=== PATIENT | female | born 1950 | race Caucasian/White ===

== ENCOUNTER 2016-03-26 14:30 | Outpatient (RCR) | payer MEDICARE, MEDICAID ==
[~2016-03-26 14:30] MED LIST: ADV1DS IH; ALBU2.5V4 NEB; ALBU2.5V52 INH; ALBU8.5H2 IH; ALPR0.5T PO; ALPR0.5T7 PO; AMIT100T2 PO; AMIT75TA2 PO; ASP81TEC PO; ASPI-999 PO; ATOR40TA PO; ATOR80TA2 PO; ATOR80TA76 PO; AZIT250T5 PO; BENZ100C23 PO; BENZ200C25 PO; BUDE0.256 IH; BUDE0.5A IH; BUDE0.5A7 IH; BUDE6HFA IH; CARV3.12 PO; CEFD300C PO; CEFD300C3 PO; CETI10TA17 PO; CHOL10007 PO; CIPR500T4 PO; CLOP75TA28 PO; CLPD75T PO; CRV6.25T PO; CYCL10TA45 PO; DIAZ5TAB3 PO; DIPH25CA79 PO; DIPH25TA31 PO; DLT180CCR PO; DULO60CA6 PO; ESTR1TAB24 PO; FENO145T2 PO; FENO145T20 PO; FISH400C PO; FLUO40CA PO; FLUT1DIS26 IH; FLUT1DIS26 INH; FLUT1DIS27 IH; FLUT9.9S NSEACH; GABA-488 PO; GLIM2TAB PO; GUAI120013 PO; HYDR-34 PO; HYDR-3816 PO; HYDR-3820 PO; HYDR-757 PO; HYDR118S10 PO; IPRA3AMP IH; IPRA3AMP19 IH; LEVO750T24 PO; LEVO750T9 PO; LISI-556 PO; LORA0.5T PO; METO-270 PO; METO-272 PO; METO25TA PO; METO50TA7 PO; MNTL10T PO; MONT10TA24 PO; MULT-1029 PO; MULT1TAB12 PO; MULT400C3 PO; NYST1000 PO; OMEG-109 PO; OMEG-160 PO; OMEG1200 PO; OMEG1CAP74 PO; OMEP40CA36 PO; OSLT75CRX PO; OXC5T PO; OXYC5TAB49 PO; PARO20TA5 PO; PARO20TA57 PO; PRD10T PO; PRD20T PO; PRED10TA PO; PREG50C PO; RT-ALBUINH IH; RT-ALBUINH INH; SCR1T1 PO; SERT100T8 PO; SERT50TA9 PO; SIMV40TA4 PO; SIMV80TA3 PO; SUCR1TAB PO; TIOT18CA IH; TIOT18CA2 IH; TIOT18CA2 INH; VNL75CCR PO
== END 2016-05-27 | disposition home or self-care (01) ==
LOC: CARD 14:30
PROVIDERS: ATTEND Nurse Practitioner Family
DX: I25.10 Atherosclerotic heart disease of native coronary artery without angina pectoris (principal); I65.23 Occlusion and stenosis of bilateral carotid arteries; E78.4 Other hyperlipidemia; R00.2 Palpitations; G47.33 Obstructive sleep apnea (adult) (pediatric)
CPT/HCPCS: 93270

== ENCOUNTER → 2016-05-31 | Outpatient (CLI) | payer MEDICARE, MEDICAID ==
[~2016-05-31] MED LIST changes: +ALBU18HF2 INH; +AMIT25TA9 PO; +ARIP5TAB20 PO; +ASPI-586 PO; +ATOR20TA66 PO; +BUDE0.253 IH; +BUPR1PAT TD; +METF500T4 PO; +SUCR1TAB36 PO
[2016-05-31 10:32] LABS: BASOPHILS % (AUTO) 0 % (0-10); EOSINOPHILS # (AUTO) 0.1 10^3/uL (0.0-0.3); EOSINOPHILS % (AUTO) 2 % (0-10); LYMPHOCYTES # (AUTO) 2.7 X 10^3 (1.0-4.0); LYMPHOCYTES % (AUTO) 44 % (12-44); MEAN CORPUSCULAR HEMOGLOBIN 28 PG (25-34); MEAN CORPUSCULAR HGB CONC 34 G/DL (32-36); MEAN CORPUSCULAR VOLUME 83 FL (80-99); MEAN PLATELET VOLUME 9.7 FL (7.4-10.4); MONOCYTES # (AUTO) 0.6 X 10^3 (0.0-1.0); MONOCYTES % (AUTO) 9 % (0-12); NEUTROPHILS # (AUTO) 2.7 X 10^3 (1.8-7.8); NEUTROPHILS % (AUTO) 44 % (42-75); PLATELET COUNT 213 10^3/uL (130-400); RED BLOOD COUNT 4.53 10^6/uL (4.35-5.85); RED CELL DISTRIBUTION WIDTH 14.1 % (10.0-14.5); WHITE BLOOD COUNT 6.1 10^3/uL (4.3-11.0)
[2016-05-31 10:52] LABS: ALANINE AMINOTRANSFERASE 24 U/L (0-55); ALBUMIN 4.2 G/DL (3.2-4.5); ANION GAP 10 MMOL/L (5-14); ASPARTATE AMINO TRANSFERASE 21 U/L (5-34); BILIRUBIN,TOTAL 0.5 MG/DL (0.1-1.0); BLOOD UREA NITROGEN 26 MG/DL (7-18); BUN/CREATININE RATIO 28; CALCIUM 9.7 MG/DL (8.5-10.1); CARBON DIOXIDE 24 MMOL/L (21-32); CHLORIDE 107 MMOL/L (98-107); CHOLESTEROL 245 MG/DL (< 200); CREATININE SERUM 0.93 MG/DL (0.60-1.30); DIRECT LDL 140 MG/DL (1-129); ERYTHROCYTE SEDIMENTATION RATE 9 MM/HR (0-30); GFR ESTIMATED > 60; GLUCOSE 131 MG/DL (70-105); POTASSIUM 3.9 MMOL/L (3.6-5.0); SODIUM 141 MMOL/L (135-145); TOTAL PROTEIN 6.3 G/DL (6.4-8.2); TRIGLYCERIDES 451 MG/DL (<150); VLDL CHOLESTEROL 90 MG/DL (5-40)
[2016-05-31 11:12] LABS: THYROID STIMULATING HORMONE 2.56 UIU/ML (0.35-4.94)
== END ==
LOC: LAB 10:17
PROVIDERS: ATTEND Nurse Practitioner Family
DX: I25.10 Atherosclerotic heart disease of native coronary artery without angina pectoris (principal); E78.4 Other hyperlipidemia; I65.23 Occlusion and stenosis of bilateral carotid arteries; J43.8 Other emphysema; E11.9 Type 2 diabetes mellitus without complications; R26.89 Other abnormalities of gait and mobility; G47.33 Obstructive sleep apnea (adult) (pediatric); E66.09 Other obesity due to excess calories
CPT/HCPCS: 36415; 80053; 80061; 83735; 84443; 85025; 85652

== ENCOUNTER 2016-07-17 12:35 | Outpatient (CLI) | payer MEDICARE, MEDICAID ==
[~2016-07-17] VITALS: Ht 170.2 cm; Wt 100.2 kg
[~2016-07-17 12:35] MED LIST changes: -ALBU18HF2 INH; -AMIT25TA9 PO; -ARIP5TAB20 PO; -ASPI-586 PO; -ATOR20TA66 PO; -BUDE0.253 IH; -BUPR1PAT TD; -METF500T4 PO; -SUCR1TAB36 PO
[2016-07-17 12:43] VITALS: BP 156/73
[2016-07-17] MEDS ORDERED: METF500T4 PO (13:18)
[2016-07-17] MEDS ORDERED: AMIT25TA9 PO (13:18)
[2016-07-17] MEDS ORDERED: ASPI-586 PO (13:18)
[2016-07-17] MEDS ORDERED: ATOR20TA66 PO (13:18)
[2016-07-17] MEDS ORDERED: RT-ALBUINH IH (13:18)
[2016-07-17] MEDS ORDERED: BUDE0.253 IH (13:18)
== END 2016-07-17 13:00 | disposition home or self-care (01) ==
LOC: PREOP 12:35
PROVIDERS: ATTEND Orthopaedic Surgery
DX: Z01.818 Encounter for other preprocedural examination (principal); Z11.2 Encounter for screening for other bacterial diseases; M65.4 Radial styloid tenosynovitis [de Quervain]
CPT/HCPCS: 87081

== ENCOUNTER 2016-07-22 20:25 | Emergency (ER) | payer MEDICARE, MEDICAID ==
[~2016-07-22] VITALS: Ht 170.2 cm; Wt 102.1 kg
[~2016-07-22 20:25] MED LIST changes: +AMIT25TA9 PO; +ASPI-586 PO; +ATOR20TA66 PO; +BUDE0.253 IH; +METF500T4 PO
--- NOTE | 2016-07-22 21:20 | ED Abdominal Pain ---
General Stated Complaint: STOMACH PAIN/VOMITING Source of Information: Patient, RN Notes Reviewed Exam Limitations: No Limitations History of Present Illness Time Seen By Provider: 21:20 Initial Comments As above and below. Timing/Duration: 1 Week, Getting Worse, Intermittent Severity/Quality: Moderate (7/10), Burning, Cramping Location: Epigastric Radiation: No Radiation Activities at Onset: None Associated Symptoms: Other (nauseated, but hasn't been able to vomiting) Allergies and Home Medications Allergies Coded Allergies: dornase lloyd (Verified Allergy, Unknown, RAPID HEART BEAT, 05/25/15) Penicillins (Verified Adverse Reaction, Mild, NAUSEA, 05/25/15) codeine (Verified Adverse Reaction, Mild, NAUSEA, PT TAKES HYDROCODONE AT HOME, 05/25/15) Home Medications Albuterol Sulfate 1 Puff Puff, 2 PUFF IH Q4H PRN for SHORTNESS OF BREATH, ( Reported) 1 PUFF = 90 MCG Albuterol Sulfate 18 Gm Hfa.aer.ad, 1 INH INH UD, #18 (Reported) Amitriptyline HCl 25 Mg Tablet, 25 MG PO HS, (Reported) Aripiprazole 5 Mg Tablet, 1 TAB PO UD, #30 (Reported) Aspirin 81 Mg Tablet.dr, 81 MG PO DAILY, (Reported) Atorvastatin Calcium 20 Mg Tablet, 20 MG PO HS, (Reported) Budesonide 0.25 Mg/2 Ml Ampul.neb, 0.25 MG IH BID PRN for SHORTNESS OF BREATH, ( Reported) Buprenorphine 1 Each Patch.tdwk, 1 PATCH TD UD, #4 (Reported) Cetirizine HCl 10 Mg Tablet, 10 MG PO DAILY, (Reported) Fenofibrate Nanocrystallized 145 Mg Tablet, 145 MG PO DAILY, (Reported) Fluticasone Propionate 9.9 Ml [place].susp, 1 SPRAY NSEACH DAILY, (Reported) Fluticasone/Salmeterol 1 Each Blst.w.dev, 1 PUFF IH BID, (Reported) Gabapentin 300 Mg Capsule, 600 MG PO 1200,2100, (Reported) TAKES 2 (300MG) CAPSULES Gabapentin 300 Mg Capsule, 300 MG PO DAILY, (Reported) Glimepiride 2 Mg Tablet, 2 MG PO DAILY, (Reported) Hydrocodone/Acetaminophen 1 Each Tablet, 1 TAB PO Q4H PRN for PAIN, (Reported) Ipratropium/Albuterol Sulfate 3 Ml Ampul.neb, 3 ML IH Q4H PRN for SHORTNESS OF BREATH, (Reported) Lisinopril 5 Mg Tablet, 1 TAB PO UD, #30 (Reported) Metformin HCl 500 Mg Tablet, 1,000 MG PO DAILY, (Reported) take 2 (500mg) tabs Metoprolol Succinate 25 Mg Tab.er.24h, 25 MG PO DAILY, (Reported) Montelukast Sodium 10 Mg Tablet, 10 MG PO HS, (Reported) Multivit, Calc, Min/Folic Acid 400 Mcg Capsule, 1 CAP PO HS, (Reported) Halbur-3/Dha/Epa/Fish Oil 1 Each Capsule, 2,000 MG PO BID, (Reported) TAKES 2 (1000MG) CAPSULES Omeprazole 40 Mg Capsule.dr, 40 MG PO DAILY, (Reported) Sertraline HCl 100 Mg Tablet, 100 MG PO HS, (Reported) TAKES ALONG WITH 50MG TABLET Sertraline HCl 50 Mg Tablet, 50 MG PO HS, (Reported) TAKES ALONG WITH 100MG TABLET Sucralfate 1 Gm Tablet, 1 GM PO ACHS, #120 Ref 0 Prescribed by: TRISTAN CAMARILLO on 07/23/16 0012 Tiotropium [place] 1 Inh Aerp, 1 CAP IH DAILY, (Reported) Review of Systems Constitutional: see HPI Gastrointestinal: See HPI, Abdominal Pain, Nausea All Other Systems Reviewed Negative Unless Noted: Yes (Negative excepted noted.) Past Vreblyg-Jthnly-Dgfftv Hx Patient Social History Type Used: Cigarettes Former Smoker/When Quit: May 22, 2001 Recent Foreign Travel: No Contact w/Someone Who Travel: No Recent Hopitalizations: No Immunizations Up To Date Tetanus Booster (TDap): Unknown PED Vaccines UTD: Yes Date of Pneumonia Vaccine: Dec 22, 2014 Date of Influenza Vaccine: Dec 21, 2015 Seasonal Allergies Seasonal Allergies: Yes Surgeries HX Surgeries: Yes (C-SPINE, RIGHT RCR, TRACH, eyelid lift) Surgeries: Appendectomy, Cardiac, Coronary Stent, Gallbladder, 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, Orthopedic, Tonsillectomy, Tracheostomy Respiratory Hx Respiratory Disorders: Yes (COPD, PLEURISY, WEARS OXYGEN, BRONCHOSPASM, VOCAL CORD SPASM) Respiratory Disorders: Asthma, Pneumonia, Chronic Bronchitis, COPD, Emphysema Cardiovascular Hx Cardiac Disorders: Yes (Cardiac stents x2) Cardiac Disorders: Coronary Artery Disease, Hypertension Neurological Hx Neurological Disorders: No 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 System Hx 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 Disorders: No 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, 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 Genitourinary Hx Genitourinary Disorders: Yes Genitourinary Disorders: Bladder Infection, Kidney Stones Gastrointestinal Hx Gastrointestinal Disorders: Yes (SPASMODIC COLON) Gastrointestinal Disorders: Gastroesophageal Reflux, Ulcer, Irritable Bowel Musculoskeletal Hx Musculoskeletal Disorders: Yes (NECK PAIN, CERVICAL STENOSIS, ) Musculoskeletal Disorders: Arthritis, Fibromyalgia, Rheumatoid Arthritis, Chronic Back Pain Endocrine Hx Endocrine Disorders: Yes Endocrine Disorders: Diabetes, Non-Insulin dep HEENT HX ENT Disorders: Yes (GLASSES, DENTURES, LARYNGOSPASM/VOCAL CORD SPASM) Loss of Vision: Denies Hearing Impairment: Denies Cancer Hx Cancer: No Psychosocial Hx Psychiatric Problems: Yes Behavioral Health Disorders: Anxiety, Depression Integumentary HX Skin/Integumentary Disorder: No Blood Transfusions Hx Blood Disorders: No Adverse Reaction to a Blood Tr: No Family Medical History Significant Family History: No Pertinent Family Hx Family Medial History: Cancer 03 MOTHER (lung cancer 1987) Cardiovascular disease G8 BROTHER G8 SISTER Diabetes mellitus G8 SISTER Family history: Asthma 03 MOTHER Family history: Cardiovascular disease 03 FATHER Family history: Hypertension 03 MOTHER Family history: Osteoporosis 03 MOTHER History of - respiratory disease Hypertension G8 BROTHER G8 SISTER Respiratory disorder G8 BROTHER (LUNG CA) Stroke 03 MOTHER (1969,s stroke paraylsis lower extremies w/c ) Physical Exam Vital Signs VS - Last 72 Hours, by Label 07/22/16 07/22/16 21:27 21:43 Temp 99.0 99.0 Pulse 71 Resp 20 B/P (MAP) 145/105 Pulse Ox 97 O2 Delivery Nasal Cannula O2 Flow Rate 2.00 Capillary Refill : General Appearance: WD/WN, moderate distress, obese HEENT: normal ENT inspection Neck: normal inspection Respiratory: no respiratory distress Cardiovascular: regular rate, rhythm Gastrointestinal: soft, guarding (epigastric), No rebound, tenderness ( epigastric) Rectal: deferred Neurologic/Psychiatric: no motor/sensory deficits, alert, oriented x 3, other ( appears uncomfortable) Skin: warm/dry Progress/Results/Core Measures Results/Orders Lab Results Laboratory Tests Test 07/22/16 21:22 07/22/16 21:40 Range/Units Urine Color YELLOW Urine Clarity CLEAR Urine pH 7 5-9 Urine Specific [place] 1.010 L 1.016-1.022 Urine Protein NEGATIVE NEGATIVE Urine Glucose (UA) NEGATIVE NEGATIVE Urine Ketones NEGATIVE NEGATIVE Urine Nitrite NEGATIVE NEGATIVE Urine Bilirubin NEGATIVE NEGATIVE Urine Urobilinogen NORMAL NORMAL MG/DL Urine Leukocyte Esterase 2+ H NEGATIVE Urine RBC (Auto) NEGATIVE NEGATIVE Urine RBC NONE /HPF Urine WBC 0-2 /HPF Urine Squamous Epithelial Cells NONE /HPF Urine Crystals NONE /LPF Urine Bacteria TRACE /HPF Urine Casts NONE /LPF Urine Mucus NEGATIVE /LPF Urine Culture Indicated NO White Blood Count 12.9 H 4.3-11.0 10^3/uL Red Blood Count 4.66 4.35-5.85 10^6/uL Hemoglobin 13.2 11.5-16.0 G/DL Hematocrit 39 35-52 % Mean Corpuscular Volume 83 80-99 FL Mean Corpuscular Hemoglobin 28 25-34 PG Mean Corpuscular Hemoglobin Concent 34 32-36 G/DL Red Cell Distribution Width 14.0 10.0-14.5 % Platelet Count 237 130-400 10^3/uL Mean Platelet Volume 10.5 H 7.4-10.4 FL Neutrophils (%) (Auto) 75 42-75 % Lymphocytes (%) (Auto) 16 12-44 % Monocytes (%) (Auto) 8 0-12 % Eosinophils (%) (Auto) 1 0-10 % Basophils (%) (Auto) 0 0-10 % Neutrophils # (Auto) 9.6 H 1.8-7.8 X 10^3 Lymphocytes # (Auto) 2.1 1.0-4.0 X 10^3 Monocytes # (Auto) 1.0 0.0-1.0 X 10^3 Eosinophils # (Auto) 0.1 0.0-0.3 10^3/uL Basophils # (Auto) 0.0 0.0-0.1 10^3/uL Sodium Level 143 135-145 MMOL/L Potassium Level 3.9 3.6-5.0 MMOL/L Chloride Level 107 98-107 MMOL/L Carbon Dioxide Level 22 21-32 MMOL/L Anion Gap 14 5-14 MMOL/L Blood Urea Nitrogen 11 7-18 MG/DL Creatinine 0.96 0.60-1.30 MG/DL Estimat Glomerular Filtration Rate 59 BUN/Creatinine Ratio 11 Glucose Level 154 H 70-105 MG/DL Calcium Level 9.8 8.5-10.1 MG/DL Total Bilirubin 0.6 0.1-1.0 MG/DL Aspartate Amino Transf (AST/SGOT) 34 5-34 U/L Alanine Aminotransferase (ALT/SGPT) 56 H 0-55 U/L Alkaline Phosphatase 57 40-136 U/L Total Protein 6.8 6.4-8.2 G/DL Albumin 4.6 H 3.2-4.5 G/DL Lipase 21 8-78 U/L My Orders Orders - TRISTAN CAMARILLO DO Ondansetron Injection (Zofran Injectio (07/22/16 21:45) Famotidine Injection (Pepcid Injection) (07/22/16 21:45) Fentanyl Injection (Sublimaze Injection (07/22/16 21:45) Saline Lock/Iv-Start (07/22/16 21:39) Cbc With Automated Diff (07/22/16 21:39) Lipase (07/22/16 21:39) Ua Culture If Indicated (07/22/16 21:39) Comprehensive Metabolic Panel (07/22/16 22:01) Ct Abdomen/Pelvis W (07/22/16 22:33) Iohexol Injection (Omnipaque 350 Mg/Ml 1 (07/22/16 22:45) Sodium Chloride Flush (Catheter Flush Sy (07/22/16 22:45) Sucralfate Tablet (Carafate Tablet) (07/23/16 00:15) Medications Given in ED Current Medications Medications Dose Ordered Sig/Dominique Route Start Time Stop Time Status Last Admin Dose Admin Famotidine 20 mg ONCE ONCE IVP 07/22/16 21:45 07/22/16 21:46 DC 07/22/16 21:43 20 MG Fentanyl Citrate 100 mcg ONCE ONCE IVP 07/22/16 21:45 07/22/16 21:46 DC 07/22/16 21:43 100 MCG Iohexol 100 ml ONCE ONCE IV 07/22/16 22:45 07/22/16 22:46 DC 07/22/16 23:14 100 ML Ondansetron HCl 4 mg ONCE ONCE IVP 07/22/16 21:45 07/22/16 21:46 DC 07/22/16 21:43 4 MG Sodium Chloride 10 ml NEEDED PRN IV 07/22/16 22:45 07/22/16 23:14 10 ML Sucralfate 1 gm ONCE ONCE PO 07/23/16 00:15 07/23/16 00:16 DC 07/23/16 00:31 1 GM Vital Signs/I&O Vital Sign - Last 12Hours 07/22/16 07/22/16 21:27 21:43 Temp 99.0 99.0 Pulse 71 Resp 20 B/P (MAP) 145/105 Pulse Ox 97 O2 Delivery Nasal Cannula O2 Flow Rate 2.00 Progress Note : Progress Note Much improved @ time of discharge. Diagnostic Imaging Diagonstic Imaging: CT Plain Films/CT/US/NM/MRI: abdomen, pelvis Reviewed: Reviewed [place] Study (nothing acute) Departure Impression Impression: Primary Impression: Epigastric abdominal pain Additional Impression: PUD vs Gastritis Disposition: HOME, SELF-CARE Condition: Improved Departure-Patient Inst. Decision time for Depature: 00:10 Referrals: [facility] (PCP) Primary Care Physician COREY JUAREZ (Family) Primary Care Physician Patient Instructions: Peptic Ulcers (DC), Gastritis (DC) Add. Discharge Instructions: RECOMMEND DOUBLING UP ON YOUR OMEPERZOLE FOR THE NEXT 2 WEEKS. WILL NEED TO FOLLOW UP WITH YOUR PCP IF SYMPTOMS WORSEN, OR CONTINUE. Scripts Sucralfate (Carafate) 1 Gm Tablet 1 GM PO ACHS, #120 TAB 0 Refills Prov: TRISTAN CAMARILLO DO 07/23/16 TRISTAN CAMARILLO DO July 22, 2016 21:20
[2016-07-22] MEDS ORDERED: BUPR1PAT TD (21:27)
[2016-07-22] MEDS ORDERED: ALBU18HF2 INH (21:27)
[2016-07-22] MEDS ORDERED: LISI-556 PO (21:27)
[2016-07-22] MEDS ORDERED: ARIP5TAB20 PO (21:27)
[2016-07-22 21:45] LABS: BILIRUBIN,URINE NEGATIVE (NEGATIVE); KETONES,URINE NEGATIVE (NEGATIVE); LEUKOCYTE ESTERASE ,URINE 2+ (NEGATIVE); NITRITE,URINE NEGATIVE (NEGATIVE); PH,URINE 7 (5-9); PROTEIN,URINE NEGATIVE (NEGATIVE); UROBILINOGEN,URINE NORMAL (NORMAL)
[2016-07-22] MEDS ORDERED: fentaNYL INJECTION 100 MCG/2 ML AMP IVP ONE (21:45)
[2016-07-22] MEDS ORDERED: ONDANSETRON 4 MG/2 ML (SDV) Z0FRAN IVP ONE (21:45)
[2016-07-22] MEDS ORDERED: FAMOTIDINE 20MG/2ML IV (PEPCID) IVP ONE (21:45)
[2016-07-22 21:56] LABS: WBC,URINE 0-2 /HPF
[2016-07-22 21:57] LABS: BASOPHILS % (AUTO) 0 % (0-10); EOSINOPHILS # (AUTO) 0.1 10^3/uL (0.0-0.3); EOSINOPHILS % (AUTO) 1 % (0-10); LYMPHOCYTES # (AUTO) 2.1 X 10^3 (1.0-4.0); LYMPHOCYTES % (AUTO) 16 % (12-44); MEAN CORPUSCULAR HEMOGLOBIN 28 PG (25-34); MEAN CORPUSCULAR HGB CONC 34 G/DL (32-36); MEAN CORPUSCULAR VOLUME 83 FL (80-99); MEAN PLATELET VOLUME 10.5 FL (7.4-10.4); MONOCYTES % (AUTO) 8 % (0-12); NEUTROPHILS # (AUTO) 9.6 X 10^3 (1.8-7.8); NEUTROPHILS % (AUTO) 75 % (42-75); PLATELET COUNT 237 10^3/uL (130-400); RED BLOOD COUNT 4.66 10^6/uL (4.35-5.85); WHITE BLOOD COUNT 12.9 10^3/uL (4.3-11.0)
[2016-07-22 22:29] LABS: ALBUMIN 4.6 G/DL (3.2-4.5); BILIRUBIN,TOTAL 0.6 MG/DL (0.1-1.0); CALCIUM 9.8 MG/DL (8.5-10.1); CREATININE SERUM 0.96 MG/DL (0.60-1.30); POTASSIUM 3.9 MMOL/L (3.6-5.0); TOTAL PROTEIN 6.8 G/DL (6.4-8.2)
[2016-07-22] MEDS ORDERED: CATHETER FLUSH 10 ML SYR IV PRN (22:45)
[2016-07-22] MEDS ORDERED: IOHEXOL 350 MG/ML 100 ML (OMNIPAQUE 350) VIAL IV ONE (22:45)
[2016-07-23] MEDS ORDERED: SUCR1TAB36 PO (00:12)
[2016-07-23] MEDS ORDERED: SUCRALFATE 1 GM (CARAFATE) TAB PO ONE (00:15)
[2016-07-23 00:35] VITALS: BP 165/87
--- NOTE | 2016-07-23 08:09 | Diagnostic Imaging Report ---
PROCEDURE: CT abdomen and pelvis with contrast. TECHNIQUE: Multiple contiguous axial images were obtained through the abdomen and pelvis after administration of intravenous contrast. INDICATION: Abdominal pain two weeks' duration, worsening in severity. COMPARISON: Limited to overlapped images of the upper abdomen obtained during chest CT 07/05/2015. The appendix is surgically absent. There is no abdominal wall hernia or fluid collection. In particular, the periumbilical region appeared normal. There are clips in the gallbladder fossa with hepatic cysts simple and benign. Spleen and adrenals appeared normal. There is an ovoid region of hypodensity in the uncinate process of the pancreas measuring roughly 1.1 x 0.5 cm seen best on image 31 of 94 on the delayed acquisitions. It is unclear if this is solid or cystic. No pancreatic atrophy or ductal dilatation. The bile ducts nondilated. Stomach normal aside from probable tiny hiatal hernia. No abdominal mesenteric or retroperitoneal adenopathy. There is a right renal cortical cyst showing no complexity. The kidneys unobstructed and otherwise normal. There is no pelvic ascites, abscess, hematoma, or fluid collection. There is no bowel, biliary, or urinary tract obstruction. There is no diverticulitis. No perienteric or pericolonic edema. There is no focal inflammatory process. The osseous structures are nonacute. Aortoiliac atherosclerotic vascular calcifications are nonaneurysmal without evidence of vascular obstruction. Probable bone island in the supra-acetabular right innominate bone noted. There are chronic degenerative changes. The osseous structures revealed no acute finding. IMPRESSION: 1. No inflammatory process, obstructive features, or acute findings. In particular, no periumbilical abnormality or pain reportedly greatest. 2. Indeterminate hypodensity in the uncinate process of the pancreas. This may be solid or cystic. Consider nonemergent outpatient contrast-assisted abdominal MRI and MRCP as its further workup. 3. Mild hepatic steatosis and a benign hepatic cyst as well as benign right renal cortical cyst. 4. Nonaneurysmal atherosclerosis. 5. Postoperative changes as described. Dictated by: Dictated on workstation # [id number]
[2016-07-24] MEDS ORDERED: HYDR-3820 PO (10:13)
== END 2016-07-23 00:33 | disposition home or self-care (01) ==
LOC: EDUNIT# 20:25 → ER 20:27
DX: R10.13 Epigastric pain (principal); J44.9 Chronic obstructive pulmonary disease, unspecified; I25.10 Atherosclerotic heart disease of native coronary artery without angina pectoris; I10 Essential (primary) hypertension; E11.9 Type 2 diabetes mellitus without complications; Z79.82 Long term (current) use of aspirin; Z79.84 Long term (current) use of oral hypoglycemic drugs; Z79.899 Other long term (current) drug therapy; Z95.5 Presence of coronary angioplasty implant and graft
CPT/HCPCS: 36415; 74177; 80053; 81000; 83690; 85025; 96374; 96375

== ENCOUNTER 2016-07-24 07:00 | Day surgery (SDC) | payer MEDICARE, MEDICAID ==
--- NOTE | 2016-07-17 13:56 | HISTORY AND PHYSICAL ---
DATE OF SERVICE: 07/24/2016 REASON FOR ADMISSION: This is for outpatient surgery for left De Quervain's release. HISTORY OF PRESENT ILLNESS: The patient is a 66-year-old female with progressively worsening left wrist pain. She reports she has been treated with injections in the past which initially provided good relief, but she reports progressive symptoms and failure to improve with injections. She denies any recent injuries. She is right-hand dominant. She reports that repetitive activities lead to worsening symptoms. She denies paresthesias. Due to functional impairment, the patient has elected to proceed with surgical intervention. REVIEW OF SYSTEMS: No chest pain, no shortness of breath, no dysuria. PAST MEDICAL HISTORY: Asthma, colon polyp, COPD, coronary artery disease, depression, diabetes type 2, hypertension, neck pain, cervical stenosis, fibromyalgia, peripheral neuropathy, chronic respiratory failure and back pain. PAST SURGICAL HISTORY: Appendectomy, cervical spine, cholecystectomy, hysterectomy, rotator cuff repair, tracheotomy, cardiac catheterization. FAMILY HISTORY: Noncontributory. PRIMARY CARE PROVIDER: [facility]. MEDICATIONS: Centrum, fish oil, Lipitor, Spiriva, Flonase, albuterol, Singulair, Zyrtec, Advair, ProAir, metoprolol, adult aspirin, omeprazole, Zoloft, lorazepam, gabapentin, glimepiride, metformin, lisinopril, Tricor, amitriptyline, hydrocodone, Butrans. ALLERGIES: CODEINE, DORNASE, HYMENOPTERA, PRAZOSIN, FENTANYL, PENICILLIN. SOCIAL HISTORY: The patient is a former smoker, denies alcohol use. PHYSICAL EXAMINATION: GENERAL: The patient is well-developed, well-nourished, in no acute distress. HEENT: Normocephalic, atraumatic. Pupils equal, round and reactive to light. Oropharynx is clear. NECK: Supple. No lymphadenopathy. LUNGS: Clear to auscultation bilaterally. HEART: Regular rate and rhythm. ABDOMEN: Soft, nontender, nondistended. EXTREMITIES: The left wrist demonstrates tenderness over her first dorsal compartment. She has a markedly positive Matty maneuver. She has pain with resistant thumb extension as well as abduction. IMPRESSION: Left De Quervain's tenosynovitis, unresponsive to conservative measures. PLAN: Left De Quervain's release. The risks, benefits, alternatives, options, ramifications and recovery have been discussed at length with the patient. She understands and wishes to proceed. Job ID: [id number] DocumentID: [id number] Dictated Date: 07/16/2016 09:43:49 Sales Technician Date: 07/16/2016 10:03:18 Dictated By: LEONELA ALEMAN MD
[~2016-07-24] VITALS: Ht 170.2 cm; Wt 102.1 kg
[2016-07-24 07:00] VITALS: BP 141/74
[~2016-07-24 07:00] MED LIST changes: +ALBU18HF2 INH; +ARIP5TAB20 PO; +BUPR1PAT TD; +SUCR1TAB36 PO
[2016-07-24] MEDS ORDERED: CLINDAMYCIN 600 MG/50 ML IVPB 50 ML IV ONE ×2 (07:19→08:00)
[2016-07-24] MEDS ORDERED: FAMOTIDINE 20MG/2ML IV (PEPCID) ONE (07:20)
[2016-07-24] MEDS ORDERED: ONDANSETRON 4 MG/2 ML (SDV) Z0FRAN ONE ×2 (07:20→08:47)
--- NOTE | 2016-07-24 07:20 | Progress Note-Pre Operative ---
Pre-Operative Progress Note H&P Reviewed The H&P was reviewed, patient examined and no changes noted. Date H&P Reviewed: July 24, 2016 Time H&P Reviewed: 07:19 Pre-Operative Diagnosis: left wrist DeQuervain's tenosynovitis LEONELA ALEMAN MD July 24, 2016 07:20
--- NOTE | 2016-07-24 07:21 | Progress Note-Post Operative ---
Post-Operative Progess Note Surgeon (s)/User Support Analyst (s) Surgeon LEONELA ALEMAN MD User Support Analyst: Toy Rodrigues Pre-Operative Diagnosis left wrist DeQuervain's tenosynovitis Post-Operative Diagnosis left wrist Dequervain's tenosynovitis Post-Op Procedure Note Date of Procedure: July 24, 2016 Name of Procedure Performed: left wrist Dequervain's release Description of the Procedure: see operative note Findings of the Procedure intact but macerated tendons Anesthesia Type MAC plus local Estimated blood loss (mL): minimal Packing: none Specimen(s) collected/removed none LEONELA ALEMAN MD July 24, 2016 07:21
[2016-07-24] MEDS ORDERED: CLINDAMYCIN 600 MG/NS 50 ML IVPB IV ONE ×2 (07:30)
[2016-07-24] MEDS ORDERED: HYDROcodone/APAP 10 MG/325 MG (LORTAB) TAB PO PRN (07:30)
[2016-07-24] MEDS ORDERED: RT-ALBUTEROL SULF 2.5 MG/3 ML PRE-MIX VIAL IH SCH (07:45)
[2016-07-24] MEDS ORDERED: LACTATED RINGERS 1,000 ML IV PRN ×2 (07:50→08:00)
[2016-07-24] MEDS ORDERED: BUPIVACAINE 0.25% 30 ML (SENSORCAINE) VIAL ONE (07:50)
[2016-07-24] MEDS ORDERED: FAMOTIDINE 20MG/2ML IV (PEPCID) IV ONE (08:00)
[2016-07-24] MEDS ORDERED: ONDANSETRON 4 MG/2 ML (SDV) Z0FRAN IV ONE (08:00)
[2016-07-24] MEDS ORDERED: MIDAZOLAM 2 MG/2 ML (VERSED) VIAL ONE (08:05)
[2016-07-24] MEDS ORDERED: KETAMINE HCL 100 MG/ML 5 ML VIAL ONE (08:05)
[2016-07-24] MEDS ORDERED: PROPOFOL INJECTION 50 ML IV ONE ×2 (08:05→08:47)
[2016-07-24] MEDS ORDERED: LACTATED RINGERS 1,000 ML IV ONE (08:05)
[2016-07-24] MEDS ORDERED: LIDOCAINE 1% INJ 20 ML (XYLOCAINE) VIAL ONE (08:15)
[2016-07-24] MEDS ORDERED: LABETALOL HCL 20 MG/4 ML VIAL ONE (08:46)
[2016-07-24] MEDS: morphine INJ 10 MG/ML 1ML (SYR OR VIAL) IVP PRN ×2 (09:00→09:10)
[2016-07-24] MEDS ORDERED: ONDANSETRON 4 MG/2 ML (SDV) Z0FRAN IVP PRN (09:00)
[2016-07-24 09:40] VITALS: BP 133/67
[2016-07-24 10:10] VITALS: BP 123/58
[2016-07-24] MEDS ORDERED: HYDR-3820 PO (10:13)
[2016-07-24 10:35] VITALS: BP 128/62
[2016-07-24 10:43] VITALS: BP 128/62
--- NOTE | 2016-07-24 12:39 | OPERATIVE REPORT ---
DATE OF SERVICE: 07/24/2016 PREOPERATIVE DIAGNOSIS: Left De Quervain's tenosynovitis. POSTOPERATIVE DIAGNOSIS: Left De Quervain's tenosynovitis. PROCEDURE: Left wrist De Quervain's release. SURGEON: Tyler Aleman MD INFORMATION TECHNOLOGY AUDIT MANAGER: SHIRLEY Tyson, who assisted throughout the procedure and closed the incision. ANESTHESIA: Monitored anesthesia care plus local by Nan Suarez CRNA. TOURNIQUET TIME: 10 minutes at 250 mmHg. ESTIMATED BLOOD LOSS: Minimal. DRAINS: None. COMPLICATIONS: None. POSTOPERATIVE PLAN: Early range of motion. The patient was transported to the recovery room awake and in stable condition. STATEMENT OF MEDICAL NECESSITY: The patient is a 66-year-old [id number] female with complaints of left wrist pain and swelling. She is markedly tender over her first dorsal compartment. She had swelling noted. She had remarkably positive Finklestein's maneuver. She had undergone treatment with injections, splinting, activity modifications and rest without relief and due to continued functional impairment, the patient elected to proceed with surgical intervention. PROCEDURE: After risks and benefits of the procedure were discussed and questions were answered, an informed consent was signed and placed on the chart. The operative site was confirmed in the preoperative holding area and initialed by the surgeon. The patient was then transported to the operating room and after adequate levels of monitored anesthesia care were obtained under sterile conditions, the incision site was infiltrated with a combination of plain lidocaine and plain Marcaine. The left upper extremity was then prepped and draped in the usual sterile fashion with the arm elevated. The tourniquet was inflated to 250 mmHg. A oblique incision was made in the skinfold approximately 1 fingerbreadth proximal to the radial styloid. The underlying soft tissues were bluntly dissected. Superficial branch of the radial nerve was retracted dorsally. The first dorsal compartment was then incised longitudinally. The tendons were freed throughout the first dorsal compartment; they were macerated and there were longitudinal splits noted. They were intact, but markedly inflamed with longitudinal splitting. The tourniquet was deflated for a total tourniquet time of 10 minutes. Pressure was used for hemostasis. The wound was copiously irrigated and closed with 4-0 nylon in simple interrupted fashion. A soft dressing was applied and the patient was transported to the recovery room awake and in stable condition. Job ID: [id number] DocumentID: [id number] Dictated Date: 07/24/2016 09:00:09 Casing Tier Date: 07/24/2016 12:39:03 Dictated By: TYLER ALEMAN MD
== END 2016-07-24 10:43 | disposition home or self-care (01) ==
LOC: SDC 07:00
PROVIDERS: ATTEND Orthopaedic Surgery
DX: M65.4 Radial styloid tenosynovitis [de Quervain] (principal); J44.9 Chronic obstructive pulmonary disease, unspecified; I25.10 Atherosclerotic heart disease of native coronary artery without angina pectoris; F32.9 Major depressive disorder, single episode, unspecified; E11.9 Type 2 diabetes mellitus without complications; I10 Essential (primary) hypertension; M79.1 Myalgia; M06.9 Rheumatoid arthritis, unspecified; Z79.899 Other long term (current) drug therapy; Z95.5 Presence of coronary angioplasty implant and graft; Z87.891 Personal history of nicotine dependence
CPT/HCPCS: 82962; 94640

== ENCOUNTER → 2016-08-07 | Outpatient (CLI) | payer MEDICARE, MEDICAID ==
[2016-08-07 11:45] LABS: BLOOD UREA NITROGEN 14 MG/DL (7-18); BUN/CREATININE RATIO 15; CREATININE SERUM 0.91 MG/DL (0.60-1.30); GFR ESTIMATED > 60
== END ==
LOC: LAB 11:03
PROVIDERS: ATTEND Surgery
DX: K86.89 Other specified diseases of pancreas (principal)
CPT/HCPCS: 36415; 82565; 84520

== ENCOUNTER → 2016-08-07 | Outpatient (CLI) | payer MEDICARE, MEDICAID ==
[2016-08-07 11:43] LABS: ALANINE AMINOTRANSFERASE 29 U/L (0-55); ALBUMIN 4.3 G/DL (3.2-4.5); ANION GAP 10 MMOL/L (5-14); ASPARTATE AMINO TRANSFERASE 30 U/L (5-34); BILIRUBIN,TOTAL 0.7 MG/DL (0.1-1.0); BLOOD UREA NITROGEN 14 MG/DL (7-18); BUN/CREATININE RATIO 15; CALCIUM 9.6 MG/DL (8.5-10.1); CARBON DIOXIDE 26 MMOL/L (21-32); CHLORIDE 106 MMOL/L (98-107); CHOLESTEROL 140 MG/DL (< 200); CREATININE SERUM 0.91 MG/DL (0.60-1.30); DIRECT LDL 64 MG/DL (1-129); GFR ESTIMATED > 60; GLUCOSE 118 MG/DL (70-105); POTASSIUM 3.8 MMOL/L (3.6-5.0); SODIUM 142 MMOL/L (135-145); TOTAL PROTEIN 6.1 G/DL (6.4-8.2); TRIGLYCERIDES 310 MG/DL (<150); VLDL CHOLESTEROL 62 MG/DL (5-40)
== END ==
LOC: LAB 10:51
PROVIDERS: ATTEND Nurse Practitioner Family
DX: I25.10 Atherosclerotic heart disease of native coronary artery without angina pectoris (principal); I65.23 Occlusion and stenosis of bilateral carotid arteries; E78.4 Other hyperlipidemia; J43.8 Other emphysema; G47.33 Obstructive sleep apnea (adult) (pediatric); E66.09 Other obesity due to excess calories
CPT/HCPCS: 36415; 80053; 80061

== ENCOUNTER → 2016-08-13 | Outpatient (CLI) | payer MEDICARE, MEDICAID ==
--- NOTE | 2016-08-13 12:55 | Diagnostic Imaging Report ---
PROCEDURE: MR imaging abdomen with and without contrast. TECHNIQUE: Multiplanar, multisequence MR imaging of the abdomen was performed with and without contrast. Hypodense mass seen in the pancreas on CT scan of 07/22/2016. 9 mL of Gadavist is administered intravenously. FINDINGS: There is a cystic mass without postcontrast enhancement seen in the posterior aspect of the pancreatic head. This measures 2.9 cm in craniocaudal dimension and 1.9 x 1.1 cm in maximum axial dimensions. This compares to concurrent CT scan axial measurements of 1.5 x 1.7 cm and on 07/27/2014 CT chest of 1.7 x 1.1 cm, compared with a low-grade cystic neoplasm such as serous microcystic neoplasm or IPMN. The CBD is not dilated. The pancreatic duct is not dilated. There is no other pancreatic mass seen. The liver demonstrates loss of signal on out of phase imaging compatible with diffuse steatosis. There is no enhancing mass. Multiple hepatic simple cysts are seen. There is also a simple cyst seen in the right kidney measuring 2 cm and tiny smaller other cysts. The spleen is not enlarged. The adrenal glands appear unremarkable. The abdominal aorta is normal in caliber. No periaortic significantly enlarged lymph node is seen. No peripancreatic or other significantly enlarged lymph nodes seen in the upper abdomen. The marrow signal in the lumbar spine appear unremarkable. IMPRESSION: There is a 2.9 cm cystic mass in the posterior aspect of the pancreatic head. There is suggestion of corresponding hypodense lesion on CT chest of 07/27/2014 exam with no obvious change. 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 No enhancing or solid component is identified. This could be further evaluated with endoscopic ultrasound. Followup exams suggested. Dictated by: Dictated on workstation # [id number]
--- NOTE | 2016-08-13 14:27 | Diagnostic Imaging Report ---
PROCEDURE: MR imaging cholangiography-pancreatography. TECHNIQUE: Multiplanar imaging of the abdomen was performed on a 1.5 Cathy magnet without contrast. 3D reconstructions were made for the MRCP INDICATION: Hypodense lesion in the pancreas. FINDINGS: The CBD is 9 mm in caliber, normal after cholecystectomy. The pancreatic duct is not dilated. Intrahepatic biliary ducts are not dilated. There is no filling defect or obstructive lesion identified. Cystic mass in the pancreatic head is noted. IMPRESSION: There is a cystic mass in the pancreatic head seen. This does not have obvious communication with the pancreatic duct or the CBD. Dictated by: Dictated on workstation # [id number]
== END ==
LOC: RAD 08:45
PROVIDERS: ATTEND Surgery
DX: K86.89 Other specified diseases of pancreas (principal)
CPT/HCPCS: 74181; 74183

== ENCOUNTER 2016-08-30 16:07 | Emergency (ER) | payer MEDICARE, MEDICAID ==
[~2016-08-30] VITALS: Ht 170.2 cm; Wt 102.1 kg
--- NOTE | 2016-08-30 17:10 | ED Abdominal Pain ---
General Chief Complaint: Abdominal/GI Problems Stated Complaint: STOMACH PAIN Nursing Triage Note: c/o intermittant abd pain x 1 month. Denies vomiting or diarrhea. Chills reported. BM 2 days ago. Sepsis Screen: No Definite Risk Source of Information: Patient Exam Limitations: No Limitations History of Present Illness Time Seen By Provider: 17:06 Initial Comments Patient states she was here about a month ago in the hospital and was worked up for possible pancreatitis but tenderness found to have some kind of a "spot" in her abdomen. She had a surgeon do biopsies. The past several days since her surgery she is experiencing progressively worsening pain in the suprapubic region for which she is been using her hydrocodone every 4 hours around-the- clock and now is not getting relief. She is also having nausea. She has a cyst Biopsied on her Pancreas but no word on the results yet. Dr Miles referred her to a proceduralist to have the US guided aspiration. No Vomiting. Last BM 2-3 days ago. She has a Hx of IBS-D an dtypically has BMs daily. Allergies and Home Medications Allergies Coded Allergies: dornase lloyd (Verified Allergy, Unknown, RAPID HEART BEAT, 05/25/15) Penicillins (Verified Adverse Reaction, Mild, NAUSEA, 05/25/15) codeine (Verified Adverse Reaction, Mild, NAUSEA, PT TAKES HYDROCODONE AT HOME, 05/25/15) Home Medications Albuterol Sulfate 1 Puff Puff, 2 PUFF IH Q4H PRN for SHORTNESS OF BREATH, ( Reported) 1 PUFF = 90 MCG Albuterol Sulfate 18 Gm Hfa.aer.ad, 1 INH INH UD, #18 (Reported) Amitriptyline HCl 25 Mg Tablet, 25 MG PO HS, (Reported) Aripiprazole 5 Mg Tablet, 1 TAB PO UD, #30 (Reported) Aspirin 81 Mg Tablet.dr, 81 MG PO DAILY, (Reported) Atorvastatin Calcium 20 Mg Tablet, 20 MG PO HS, (Reported) Budesonide 0.25 Mg/2 Ml Ampul.neb, 0.25 MG IH BID PRN for SHORTNESS OF BREATH, ( Reported) Buprenorphine 1 Each Patch.tdwk, 1 PATCH TD UD, #4 (Reported) Cetirizine HCl 10 Mg Tablet, 10 MG PO DAILY, (Reported) Fenofibrate Nanocrystallized 145 Mg Tablet, 145 MG PO DAILY, (Reported) Fluticasone Propionate 9.9 Ml [place].susp, 1 SPRAY NSEACH DAILY, (Reported) Fluticasone/Salmeterol 1 Each Blst.w.dev, 1 PUFF IH BID, (Reported) Gabapentin 300 Mg Capsule, 600 MG PO 1200,2100, (Reported) TAKES 2 (300MG) CAPSULES Gabapentin 300 Mg Capsule, 300 MG PO DAILY, (Reported) Glimepiride 2 Mg Tablet, 2 MG PO DAILY, (Reported) Hydrocodone/Acetaminophen 1 Each Tablet, 1-2 TAB PO Q4H, #30 Prescribed by: KIARA CEBALLOS on 07/24/16 1013 Ipratropium/Albuterol Sulfate 3 Ml Ampul.neb, 3 ML IH Q4H PRN for SHORTNESS OF BREATH, (Reported) Lisinopril 5 Mg Tablet, 1 TAB PO UD, #30 (Reported) Metformin HCl 500 Mg Tablet, 1,000 MG PO DAILY, (Reported) take 2 (500mg) tabs Metoprolol Succinate 25 Mg Tab.er.24h, 25 MG PO DAILY, (Reported) Montelukast Sodium 10 Mg Tablet, 10 MG PO HS, (Reported) Multivit, Calc, Min/Folic Acid 400 Mcg Capsule, 1 CAP PO HS, (Reported) Roslyn-3/Dha/Epa/Fish Oil 1 Each Capsule, 2,000 MG PO BID, (Reported) TAKES 2 (1000MG) CAPSULES Omeprazole 40 Mg Capsule.dr, 40 MG PO DAILY, (Reported) Sertraline HCl 100 Mg Tablet, 100 MG PO HS, (Reported) TAKES ALONG WITH 50MG TABLET Sertraline HCl 50 Mg Tablet, 50 MG PO HS, (Reported) TAKES ALONG WITH 100MG TABLET Sucralfate 1 Gm Tablet, 1 GM PO ACHS, #120 Ref 0 Prescribed by: TRISTAN CAMARILLO on 07/23/16 0012 Tiotropium [place] 1 Inh Aerp, 1 CAP IH DAILY, (Reported) Review of Systems Constitutional: see HPI, No chills, No diaphoresis EENTM: See HPI, No Nose Congestion, No Throat Pain Respiratory: Denies Cough, Denies Shortness of Air, Denies SOA With Exertion, Denies Wheezing Cardiovascular: Denies Chest Pain, Denies Edema Gastrointestinal: See HPI, Denies Abdomen Distended, Abdominal Pain, Constipated, Denies Diarrhea, Nausea, Denies Poor Fluid Intake, Denies Vomiting Genitourinary: Burning, Denies Discharge, Denies Frequency Musculoskeletal: No back pain, No joint pain Skin: No pruritus, No rash Past Uxrmmkc-Jleanu-Dntgud Hx Patient Social History Alcohol Use: Denies Use Recreational Drug Use: No Type Used: Cigarettes Former Smoker/When Quit: May 22, 2001 2nd Hand Smoke Exposure: Yes Recent Foreign Travel: No Contact w/Someone Who Travel: No Recent Infectious Disease Expo: No Recent Hopitalizations: Yes (ER VISIT 07/22/16 FOR ABD PAIN, STATES "I HAVE AN ULCER.") Immunizations Up To Date Tetanus Booster (TDap): Unknown PED Vaccines UTD: Yes Date of Pneumonia Vaccine: Dec 22, 2014 Date of Influenza Vaccine: Dec 21, 2015 Seasonal Allergies Seasonal Allergies: Yes Surgeries HX Surgeries: Yes (C-SPINE, RIGHT RCR, TRACH, eyelid lift) Surgeries: Appendectomy, Cardiac, Coronary Stent, Gallbladder, 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, Orthopedic, Tonsillectomy, Tracheostomy Respiratory Hx Respiratory Disorders: Yes (COPD, PLEURISY, WEARS OXYGEN, BRONCHOSPASM, VOCAL CORD SPASM) Respiratory Disorders: Asthma, Pneumonia, Chronic Bronchitis, COPD, Emphysema Cardiovascular Hx Cardiac Disorders: Yes (Cardiac stents x2) Cardiac Disorders: Coronary Artery Disease, High Cholesterol, Hypertension Neurological Hx Neurological Disorders: No 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 System Hx 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 Disorders: No 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, 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 Genitourinary Hx Genitourinary Disorders: Yes Genitourinary Disorders: Bladder Infection, Kidney Stones Gastrointestinal Hx Gastrointestinal Disorders: Yes (SPASMODIC COLON) Gastrointestinal Disorders: Gastroesophageal Reflux Musculoskeletal Hx Musculoskeletal Disorders: Yes (NECK PAIN, CERVICAL STENOSIS, ) Musculoskeletal Disorders: Arthritis, Fibromyalgia, Rheumatoid Arthritis, Chronic Back Pain Endocrine Hx Endocrine Disorders: Yes Endocrine Disorders: Diabetes, Non-Insulin dep HEENT HX ENT Disorders: Yes (GLASSES, DENTURES, LARYNGOSPASM/VOCAL CORD SPASM) Loss of Vision: Denies Hearing Impairment: Denies Cancer Hx Cancer: No Psychosocial Hx Psychiatric Problems: Yes Behavioral Health Disorders: Anxiety, Depression Integumentary HX Skin/Integumentary Disorder: No Blood Transfusions Hx Blood Disorders: No Adverse Reaction to a Blood Tr: No Family Medical History Significant Family History: No Pertinent Family Hx Family Medial History: Cancer 03 MOTHER (lung cancer 1987) Cardiovascular disease G8 BROTHER G8 SISTER Diabetes mellitus G8 SISTER Family history: Asthma 03 MOTHER Family history: Cardiovascular disease 03 FATHER Family history: Hypertension 03 MOTHER Family history: Osteoporosis 03 MOTHER History of - respiratory disease Hypertension G8 BROTHER G8 SISTER Respiratory disorder G8 BROTHER (LUNG CA) Stroke 03 MOTHER (1970,s stroke paraylsis lower extremies w/c ) Physical Exam Vital Signs VS - Last 72 Hours, by Label 08/30/16 08/30/16 16:54 17:33 Temp 97.7 97.7 Pulse 65 Resp 16 B/P (MAP) 196/93 Capillary Refill : Less Than 3 Seconds General Appearance: WD/WN, moderate distress, obese HEENT: PERRL/EOMI, pharynx normal Neck: non-tender, normal inspection Respiratory: chest non-tender, lungs clear Cardiovascular: normal peripheral pulses, regular rate, rhythm, no edema Peripheral Pulses: 3+ Radial Pulses (R), 3+ Radial Pulses (L) Gastrointestinal: normal bowel sounds, no organomegaly, no pulsatile mass, guarding, tenderness (epigastric) Extremities: no pedal edema, no calf tenderness, normal capillary refill Back: normal inspection, no CVA tenderness Neurologic/Psychiatric: alert, oriented x 3 Skin: normal color, warm/dry Focused Exam Lactic Acid Level Laboratory Tests Test 08/30/16 17:31 Lactic Acid Level 1.08 MMOL/L (0.50-2.00) Progress/Results/Core Measures Results/Orders Lab Results Laboratory Tests Test 08/30/16 17:00 08/30/16 17:20 08/30/16 17:31 Range/Units White Blood Count 7.1 4.3-11.0 10^3/uL Red Blood Count 4.40 4.35-5.85 10^6/uL Hemoglobin 12.2 11.5-16.0 G/DL Hematocrit 37 35-52 % Mean Corpuscular Volume 85 80-99 FL Mean Corpuscular Hemoglobin 28 25-34 PG Mean Corpuscular Hemoglobin Concent 33 32-36 G/DL Red Cell Distribution Width 13.5 10.0-14.5 % Platelet Count 220 130-400 10^3/uL Mean Platelet Volume 10.5 H 7.4-10.4 FL Neutrophils (%) (Auto) 54 42-75 % Lymphocytes (%) (Auto) 37 12-44 % Monocytes (%) (Auto) 7 0-12 % Eosinophils (%) (Auto) 2 0-10 % Basophils (%) (Auto) 0 0-10 % Neutrophils # (Auto) 3.8 1.8-7.8 X 10^3 Lymphocytes # (Auto) 2.7 1.0-4.0 X 10^3 Monocytes # (Auto) 0.5 0.0-1.0 X 10^3 Eosinophils # (Auto) 0.1 0.0-0.3 10^3/uL Basophils # (Auto) 0.0 0.0-0.1 10^3/uL Sodium Level 143 135-145 MMOL/L Potassium Level 3.9 3.6-5.0 MMOL/L Chloride Level 108 H 98-107 MMOL/L Carbon Dioxide Level 24 21-32 MMOL/L Anion Gap 11 5-14 MMOL/L Blood Urea Nitrogen 17 7-18 MG/DL Creatinine 1.10 0.60-1.30 MG/DL Estimat Glomerular Filtration Rate 50 BUN/Creatinine Ratio 15 Glucose Level 177 H 70-105 MG/DL Calcium Level 9.8 8.5-10.1 MG/DL Magnesium Level 2.2 1.8-2.4 MG/DL Total Bilirubin 0.6 0.1-1.0 MG/DL Aspartate Amino Transf (AST/SGOT) 22 5-34 U/L Alanine Aminotransferase (ALT/SGPT) 23 0-55 U/L Alkaline Phosphatase 58 40-136 U/L Total Protein 6.7 6.4-8.2 G/DL Albumin 4.4 3.2-4.5 G/DL Amylase Level 28 25-125 U/L Lipase 16 8-78 U/L Urine Color YELLOW Urine Clarity CLEAR Urine pH 7 5-9 Urine Specific [place] 1.010 L 1.016-1.022 Urine Protein NEGATIVE NEGATIVE Urine Glucose (UA) NEGATIVE NEGATIVE Urine Ketones NEGATIVE NEGATIVE Urine Nitrite NEGATIVE NEGATIVE Urine Bilirubin NEGATIVE NEGATIVE Urine Urobilinogen NORMAL NORMAL MG/DL Urine Leukocyte Esterase NEGATIVE NEGATIVE Urine RBC (Auto) NEGATIVE NEGATIVE Urine RBC NONE /HPF Urine WBC RARE /HPF Urine Squamous Epithelial Cells NONE /HPF Urine Crystals NONE /LPF Urine Bacteria NEGATIVE /HPF Urine Casts NONE /LPF Urine Mucus NEGATIVE /LPF Urine Culture Indicated NO Lactic Acid Level 1.08 0.50-2.00 MMOL/L My Orders Orders - TUYET SMITH Ct Abdomen/Pelvis W (08/30/16 17:10) Saline Lock/Iv-Start (08/30/16 17:10) Amylase (08/30/16 17:10) Cbc With Automated Diff (08/30/16 17:10) Comprehensive Metabolic Panel (08/30/16 17:10) Lactic Acid Analyzer (08/30/16 17:10) Lipase (08/30/16 17:10) Magnesium (08/30/16 17:10) Ua Culture If Indicated (08/30/16 17:10) Fentanyl Injection (Sublimaze Injection (08/30/16 17:10) Ns Iv 1000 Ml (Sodium Chloride 0.9%) (08/30/16 17:15) Ondansetron Injection (Zofran Injectio (08/30/16 17:15) Iohexol Injection (Omnipaque 350 Mg/Ml 1 (08/30/16 17:45) Ns (Ivpb) (Sodium Chloride 0.9% Ivpb Bag (08/30/16 17:45) Medications Given in ED Current Medications Medications Dose Ordered Sig/Dominique Route Start Time Stop Time Status Last Admin Dose Admin Iohexol 100 ml ONCE ONCE IV 08/30/16 17:45 08/30/16 17:46 DC 08/30/16 17:54 80 ML Ondansetron HCl 4 mg ONCE ONCE IVP 08/30/16 17:15 08/30/16 17:16 DC 08/30/16 17:32 4 MG Sodium Chloride 100 ml ONCE ONCE IV 08/30/16 17:45 08/30/16 17:46 DC 08/30/16 17:54 80 ML Vital Signs/I&O Vital Sign - Last 12Hours 08/30/16 08/30/16 16:54 17:33 Temp 97.7 97.7 Pulse 65 Resp 16 B/P (MAP) 196/93 Blood Pressure Mean: 127 Progress Note : Time: 19:04 Progress Note Patient was writhing in pain on initial interview. She was given the fentanyl by IV as well as Zofran and after getting her CAT scan she had a remarkable recovery and her pain is under good control as well as her nausea. However her workup does not demonstrate any pathology. She is not had a bowel movement in 2 or 3 days she states she is typically has IBS with loose stools and has a bowel movement every day. This may be a side effect to the opiates she has been taking. Patient is quite comfortable now and states she has plenty of pain meds at home but no nausea meds. She would like to go home and follow up outpatient with Dr. Miles. Diagnostic Imaging Diagonstic Imaging: CT Plain Films/CT/US/NM/MRI: abdomen Comments NAME: VALENTÍN ROWAN MED REC#: [id number] PHYSICIAN: TUYET SMITH MD CC: GODWIN JORGE; TUYET SMITH Page 1 of 1 RADIOLOGY REPORT VIA [facility] [place], [place] CC: GODWIN JORGE; TUYET SMITH Page 1 of 1 RADIOLOGY REPORT NAME: VALENTÍN ROWAN MED REC#: [id number] PT STATUS: REG ER : 1950 PHYSICIAN: TUYET SMITH MD ADMIT DATE: 08/30/16/ER Signed Date of Exam: 08/30/16 CT ABDOMEN/PELVIS W PROCEDURE: CT abdomen and pelvis with contrast. TECHNIQUE: Multiple contiguous axial images were obtained through the abdomen and pelvis after administration of intravenous contrast. INDICATION: Epigastric pain x 1 month FINDINGS: Lung bases are clear. There is a 12 mm hypodense round lesion in the anterior segment of the right lobe of liver that is probably a cyst. Gallbladder is surgically absent. Common duct is not dilated. There are no pancreatic masses seen. Spleen is not enlarged. Adrenals and kidneys appear normal. Small bowel is not dilated. Colon appears normal. The appendix is not seen. Uterus is surgically absent. Urinary bladder is normal. There is no intraperitoneal free air or free fluid. IMPRESSION: No acute abnormality is seen in the abdomen or pelvis. Dictated by: Dictated on workstation # [id number] Dict: 08/30/161806 Trans: 08/30/161829 Interpreted by: GODWIN JORGE Electronically signed by: GODWIN JORGE 08/30/161829 Reviewed: Reviewed by Me Departure Impression Impression: Primary Impression: Abdominal pain Qualified Codes: R10.13 - Epigastric pain Additional Impressions: Nausea Constipation due to opioid therapy Disposition: HOME, SELF-CARE Condition: Improved Departure-Patient Inst. Decision [facility]: 19:06 Referrals: ALVERTO MAGUIRE DO (PCP) Primary Care Physician COREY JUAREZ (Family) Primary Care Physician Patient Instructions: Irritable Bowel Syndrome (DC) Add. Discharge Instructions: You're having abdominal pain and nausea which can be treated with your meds at home. I will send you home with Zofran to be placed under the tongue every 4 hours as needed for nausea. If you have recurrent symptoms or worsening or new symptoms you should return to the ER. Otherwise plan on following up outpatient with your surgeon and primary care physician. If you run out of pain meds you should follow-up with your primary care physician. Your pain medicine also may be causing constipation and this can also contribute to your abdominal pain. I would recommend getting MiraLAX and taking this at least once daily while on pain meds. All discharge instructions reviewed with patient and/or family. Voiced understanding. Scripts Ondansetron (Zofran Odt) 4 Mg Tab.rapdis 4 MG PO Q4H Y for NAUSEA/VOMITING-1ST LINE, #20 TAB 0 Refills Prov: TUYET SMITH 08/30/16 Copy Copies To 1: ALVERTO MAGUIRE TITUS J Aug 30, 2016 17:10
[2016-08-30 17:19] LABS: BASOPHILS % (AUTO) 0 % (0-10); EOSINOPHILS # (AUTO) 0.1 10^3/uL (0.0-0.3); EOSINOPHILS % (AUTO) 2 % (0-10); LYMPHOCYTES # (AUTO) 2.7 X 10^3 (1.0-4.0); LYMPHOCYTES % (AUTO) 37 % (12-44); MEAN CORPUSCULAR HEMOGLOBIN 28 PG (25-34); MEAN CORPUSCULAR HGB CONC 33 G/DL (32-36); MEAN CORPUSCULAR VOLUME 85 FL (80-99); MEAN PLATELET VOLUME 10.5 FL (7.4-10.4); MONOCYTES # (AUTO) 0.5 X 10^3 (0.0-1.0); MONOCYTES % (AUTO) 7 % (0-12); NEUTROPHILS # (AUTO) 3.8 X 10^3 (1.8-7.8); NEUTROPHILS % (AUTO) 54 % (42-75); PLATELET COUNT 220 10^3/uL (130-400); RED CELL DISTRIBUTION WIDTH 13.5 % (10.0-14.5); WHITE BLOOD COUNT 7.1 10^3/uL (4.3-11.0)
[2016-08-30 17:28] LABS: BILIRUBIN,URINE NEGATIVE (NEGATIVE); KETONES,URINE NEGATIVE (NEGATIVE); LEUKOCYTE ESTERASE ,URINE NEGATIVE (NEGATIVE); NITRITE,URINE NEGATIVE (NEGATIVE); PH,URINE 7 (5-9); PROTEIN,URINE NEGATIVE (NEGATIVE); UROBILINOGEN,URINE NORMAL (NORMAL)
[2016-08-30 17:32] LABS: ALBUMIN 4.4 G/DL (3.2-4.5); BILIRUBIN,TOTAL 0.6 MG/DL (0.1-1.0); CALCIUM 9.8 MG/DL (8.5-10.1); CREATININE SERUM 1.1 MG/DL (0.60-1.30); MAGNESIUM 2.2 MG/DL (1.8-2.4); POTASSIUM 3.9 MMOL/L (3.6-5.0); TOTAL PROTEIN 6.7 G/DL (6.4-8.2)
[2016-08-30] MEDS: ONDANSETRON 4 MG/2 ML (SDV) Z0FRAN IVP ONE (17:32)
[2016-08-30] MEDS: fentaNYL INJECTION 100 MCG/2 ML AMP IVP STA (17:33)
[2016-08-30] MEDS: NS IV 1000 ML 1,000 ML IV SCH (17:33)
[2016-08-30 17:35] LABS: WBC,URINE RARE /HPF
[2016-08-30] MEDS: IOHEXOL 350 MG/ML 100 ML (OMNIPAQUE 350) VIAL IV ONE (17:54)
[2016-08-30] MEDS: NS 100 ML (IVPB) BAG IV ONE (17:54)
--- NOTE | 2016-08-30 18:19 | Diagnostic Imaging Report ---
PROCEDURE: CT abdomen and pelvis with contrast. TECHNIQUE: Multiple contiguous axial images were obtained through the abdomen and pelvis after administration of intravenous contrast. INDICATION: Epigastric pain x 1 month FINDINGS: Lung bases are clear. There is a 12 mm hypodense round lesion in the anterior segment of the right lobe of liver that is probably a cyst. Gallbladder is surgically absent. Common duct is not dilated. There are no pancreatic masses seen. Spleen is not enlarged. Adrenals and kidneys appear normal. Small bowel is not dilated. Colon appears normal. The appendix is not seen. Uterus is surgically absent. Urinary bladder is normal. There is no intraperitoneal free air or free fluid. IMPRESSION: No acute abnormality is seen in the abdomen or pelvis. Dictated by: Dictated on workstation # [id number]
[2016-08-30] MEDS ORDERED: ONDA4TAB8 PO (19:11)
[2016-08-30 19:22] VITALS: BP 172/88
== END 2016-08-30 19:22 | disposition home or self-care (01) ==
LOC: EDUNIT# 16:07 → ER 16:09
DX: R10.13 Epigastric pain (principal); R11.0 Nausea; K59.03 Drug induced constipation; T40.2X5A Adverse effect of other opioids, initial encounter; J44.9 Chronic obstructive pulmonary disease, unspecified; I10 Essential (primary) hypertension; I25.10 Atherosclerotic heart disease of native coronary artery without angina pectoris; Z95.5 Presence of coronary angioplasty implant and graft; Z87.891 Personal history of nicotine dependence
CPT/HCPCS: 36415; 74177; 80053; 81000; 82150; 83605; 83690; 83735; 85025; 99282

== ENCOUNTER → 2016-09-12 | Outpatient (CLI) | payer MEDICARE, MEDICAID ==
[~2016-09-12] MED LIST changes: +ONDA4TAB8 PO
== END ==
DX: I25.10 Atherosclerotic heart disease of native coronary artery without angina pectoris (principal)

== ENCOUNTER 2016-10-01 03:58 | Inpatient (IN) | payer MEDICARE, MEDICAID ==
[~2016-10-01] VITALS: Ht 170.2 cm; Wt 105.0 kg
[2016-10-01] VITALS (20 sets, daily range): BP systolic 91–158; BP diastolic 48–95
[2016-10-01] MEDS ORDERED: RT-ALBUTEROL/IPRATROPIUM 3 ML (DUONEB) VIAL INH ONE (04:15)
[2016-10-01] MEDS ORDERED: methylPREDNISolone 125 MG (Solu-MEDROL) VIAL IVP ONE (04:15)
[2016-10-01] MEDS ORDERED: diphenhydrAMINE 50 MG/ML INJ (BENADRYL) IVP ONE (04:30)
[2016-10-01 04:31] LABS: BASOPHILS % (AUTO) 0 % (0-10); EOSINOPHILS # (AUTO) 0.1 10^3/uL (0.0-0.3); EOSINOPHILS % (AUTO) 1 % (0-10); LYMPHOCYTES # (AUTO) 1.3 X 10^3 (1.0-4.0); LYMPHOCYTES % (AUTO) 15 % (12-44); MEAN CORPUSCULAR HEMOGLOBIN 28 PG (25-34); MEAN CORPUSCULAR HGB CONC 34 G/DL (32-36); MEAN CORPUSCULAR VOLUME 83 FL (80-99); MEAN PLATELET VOLUME 10.4 FL (7.4-10.4); MONOCYTES # (AUTO) 0.6 X 10^3 (0.0-1.0); MONOCYTES % (AUTO) 7 % (0-12); NEUTROPHILS # (AUTO) 6.6 X 10^3 (1.8-7.8); NEUTROPHILS % (AUTO) 77 % (42-75); PLATELET COUNT 193 10^3/uL (130-400); RED BLOOD COUNT 3.82 10^6/uL (4.35-5.85); RED CELL DISTRIBUTION WIDTH 13.6 % (10.0-14.5); WHITE BLOOD COUNT 8.6 10^3/uL (4.3-11.0)
[2016-10-01 04:42] LABS: INR 1.2 (0.8-1.4); PROTHROMBIN TIME PATIENT 14.4 SEC (12.2-14.7)
[2016-10-01 04:49] LABS: BAND NEUTROPHILS 23 %; BASOPHILS % (MANUAL) 0 %; EOSINOPHILS % (MANUAL) 2 %; LYMPHOCYTES % (MANUAL) 7 %; NEUTROPHILS % (MANUAL) 52 %; REACTIVE LYMPHOCYTES 12 %
[2016-10-01 05:00] LABS: ALANINE AMINOTRANSFERASE 30 U/L (0-55); ALBUMIN 3.7 GM/DL (3.2-4.5); ANION GAP 12 MMOL/L (5-14); ASPARTATE AMINO TRANSFERASE 50 U/L (5-34); BILIRUBIN,TOTAL 1.7 MG/DL (0.1-1.0); BLOOD UREA NITROGEN 31 MG/DL (7-18); BUN/CREATININE RATIO 18; CALCIUM 9.1 MG/DL (8.5-10.1); CARBON DIOXIDE 21 MMOL/L (21-32); CHLORIDE 100 MMOL/L (98-107); GFR ESTIMATED 30; GLUCOSE 73 MG/DL (70-105); POTASSIUM 3.6 MMOL/L (3.6-5.0); SODIUM 133 MMOL/L (135-145); TOTAL PROTEIN 6.5 GM/DL (6.4-8.2)
[2016-10-01 05:07] LABS: TROPONIN I < 0.30 NG/ML (<0.30)
[2016-10-01] MEDS ORDERED: NS IV 1000 ML 1,000 ML IV ONE (06:10)
[2016-10-01] MEDS ORDERED: LEVOFLOXACIN 750 MG/150 ML IV 150 ML IV ONE (06:15)
--- NOTE | 2016-10-01 06:31 | ED General ---
General Chief Complaint: Respiratory Problems Stated Complaint: SOB Nursing Triage Note: PT C/O COUGH/SOA/WEAKNESS X 3 DAYS. PT IS VERY DIAPHORETIC AT THIS TIME. AUDIBLE BARKING COUGH ALSO NOTED. Nursing Sepsis Screen: No Definite Risk Source of Information: Patient, EMS, Old Records Exam Limitations: No Limitations History of Present Illness Time Seen by Provider: 04:00 Initial Comments This 66-year-old woman with history of COPD and respiratory failure presents to the emergency room with shortness of breath, barking cough, wheezing, chills, and diaphoresis. Symptoms have been worsening over the past couple of days. She denies any smoking. Her last nebulizer treatment at home was at 21:30. She was given for Tylenol x4 by her 02:30. Her primary care provider is Cherie Juarez at [facility]. Allergies and Home Medications Allergies Coded Allergies: dornase lloyd (Verified Allergy, Unknown, RAPID HEART BEAT, 05/25/15) Penicillins (Verified Adverse Reaction, Mild, NAUSEA, 05/25/15) codeine (Verified Adverse Reaction, Mild, NAUSEA, PT TAKES HYDROCODONE AT HOME, 05/25/15) Home Medications Albuterol Sulfate 18 Gm Hfa.aer.ad, 2 PUFF INH Q4H PRN for SHORTNESS OF BREATH, (Reported) Alirocumab 75 Mg/1 Ml Pen.injctr, 75 MG SC EVERY 14 DAYS, (Reported) Aripiprazole 5 Mg Tablet, 2.5 MG PO BID, (Reported) TAKES 1/2 (5MG) TABLET Aspirin 81 Mg Tablet.dr, 81 MG PO DAILY, (Reported) Atorvastatin Calcium 20 Mg Tablet, 20 MG PO HS, (Reported) Buprenorphine 1 Each Patch.tdwk, 1 PATCH TD We, (Reported) Cetirizine HCl 10 Mg Tablet, 10 MG PO DAILY, (Reported) Cholecalciferol (Vitamin D3) 1,000 Unit Capsule, 1,000 UNIT PO DAILY, (Reported) Cyclosporine 1 Each Droperette, 1 DROP OU BID, (Reported) Fenofibrate Nanocrystallized 145 Mg Tablet, 145 MG PO DAILY, (Reported) Fluticasone Propionate 9.9 Ml Baldwin.susp, 1 SPRAY NSEACH DAILY, (Reported) Fluticasone/Salmeterol 1 Each Blst.w.dev, 1 PUFF IH BID, (Reported) Gabapentin 600 Mg Tablet, 600 MG PO 1200, (Reported) Gabapentin 600 Mg Tablet, 1,200 MG PO HS, (Reported) TAKES 2 (600MG) TABLETS Glimepiride 2 Mg Tablet, 2 MG PO DAILY, (Reported) Hydrocodone/Acetaminophen 1 Each Tablet, 1 TAB PO QID PRN for PAIN-MODERATE, ( Reported) Ipratropium/Albuterol Sulfate 3 Ml Ampul.neb, 3 ML IH Q4H PRN for SHORTNESS OF BREATH, (Reported) Lisinopril 5 Mg Tablet, 5 MG PO DAILY, (Reported) Metformin HCl 500 Mg Tab.er.24h, 1,000 MG PO 1730, (Reported) Metoprolol Succinate 25 Mg Tab.er.24h, 25 MG PO DAILY, (Reported) Montelukast Sodium 10 Mg Tablet, 10 MG PO HS, (Reported) Multivit, Calc, Min/Folic Acid 400 Mcg Capsule, 1 CAP PO HS, (Reported) [place]-3/Dha/Epa/Fish Oil 1 Each Capsule, 2,000 MG PO BID, (Reported) TAKES 2 (1000MG) CAPSULES Pantoprazole Sodium 40 Mg Tablet.dr, 40 MG PO BID, (Reported) Sertraline HCl 100 Mg Tablet, 200 MG PO HS, (Reported) TAKES 2 (100MG) TABLETS Sucralfate 1 Gm Tablet, 1 GM PO ACHS PRN for STOMACH UPSET, (Reported) Tiotropium [place] 1 Inh Aerp, 1 CAP IH DAILY, (Reported) Constitutional: see HPI EENTM: no symptoms reported Respiratory: see HPI Cardiovascular: see HPI Gastrointestinal: no symptoms reported Genitourinary: no symptoms reported : No Musculoskeletal: no symptoms reported Skin: see HPI Psychiatric/Neurological: No Symptoms Reported Hematologic/Lymphatic: No Symptoms Reported Past Yuhswhv-Pmhppx-Wbpatt Hx Patient Social History Alcohol Use: Denies Use Recreational Drug Use: No Smoking Status: Former Smoker Type Used: Cigarettes Former Smoker/When Quit: May 22, 2001 2nd Hand Smoke Exposure: Yes Recent Foreign Travel: No Contact w/Someone Who Travel: No Recent Infectious Disease Expo: No Recent Hopitalizations: Yes (ER VISIT 07/22/16 FOR ABD PAIN, STATES "I HAVE AN ULCER.") Immunizations Up To Date Tetanus Booster (TDap): Unknown PED Vaccines UTD: Yes Date of Pneumonia Vaccine: Dec 22, 2014 Date of Influenza Vaccine: Dec 21, 2015 Seasonal Allergies Seasonal Allergies: Yes Surgeries HX Surgeries: Yes (C-SPINE, RIGHT RCR, TRACH, eyelid lift) Surgeries: Appendectomy, Cardiac, Coronary Stent, Gallbladder, 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, Orthopedic, Tonsillectomy, Tracheostomy Respiratory Hx Respiratory Disorders: Yes (COPD, PLEURISY, WEARS OXYGEN, BRONCHOSPASM, VOCAL CORD SPASM, history of respiratory failure and tracheostomy) Respiratory Disorders: Asthma, Pneumonia, Chronic Bronchitis, COPD, Emphysema Cardiovascular Hx Cardiac Disorders: Yes (Cardiac stents x2) Cardiac Disorders: Coronary Artery Disease, High Cholesterol, Hypertension Neurological Hx Neurological Disorders: No 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 System Hx 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 Disorders: No Sexually Transmitted Disease: 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, Menopausal Genitourinary Hx Genitourinary Disorders: Yes Genitourinary Disorders: Bladder Infection, Kidney Stones Gastrointestinal Hx Gastrointestinal Disorders: Yes (SPASMODIC COLON) Gastrointestinal Disorders: Gastroesophageal Reflux Musculoskeletal Hx Musculoskeletal Disorders: Yes (NECK PAIN, CERVICAL STENOSIS, ) Musculoskeletal Disorders: Arthritis, Fibromyalgia, Rheumatoid Arthritis, Chronic Back Pain Endocrine Hx Endocrine Disorders: Yes Endocrine Disorders: Diabetes, Non-Insulin dep HEENT HX ENT Disorders: Yes (GLASSES, DENTURES, LARYNGOSPASM/VOCAL CORD SPASM) Loss of Vision: Denies Hearing Impairment: Denies Cancer Hx Cancer: No Psychosocial Hx Psychiatric Problems: Yes Behavioral Health Disorders: Anxiety, Depression Integumentary HX Skin/Integumentary Disorder: No Blood Transfusions Hx Blood Disorders: No Adverse Reaction to a Blood Tr: No Family Medical History Significant Family History: No Pertinent Family Hx Family Medial History: Cancer 03 MOTHER (lung cancer 1987) Cardiovascular disease G8 BROTHER G8 SISTER Diabetes mellitus G8 SISTER Family history: Asthma 03 MOTHER Family history: Cardiovascular disease 03 FATHER Family history: Hypertension 03 MOTHER Family history: Osteoporosis 03 MOTHER History of - respiratory disease Hypertension G8 BROTHER G8 SISTER Respiratory disorder G8 BROTHER (LUNG CA) Stroke 03 MOTHER (1970,s stroke paraylsis lower extremies w/c ) Physical Exam Vital Signs Vital Sign - Last 12Hours 10/01/16 10/01/16 10/01/16 04:05 04:15 08:00 Temp 99.9 Pulse 70 Resp 16 B/P (MAP) 121/59 Pulse Ox 86 O2 Delivery Room Air O2 Flow Rate 4.00 FiO2 50 Capillary Refill : Less Than 3 Seconds General Appearance: WD/WN, Moderate Distress HEENT: PERRL/EOMI, TMs Normal, Normal ENT Inspection, Pharynx Normal Neck: Normal Inspection Respiratory: No Accessory Muscle Use, No Respiratory Distress, Wheezing, Other (Delayed forced expiratory phase, barking cough) Cardiovascular: Regular Rate, Rhythm, No Murmur, Other (Mild lower extremity edema) Gastrointestinal: Normal Bowel Sounds, Non Tender, Soft Extremity: Pedal Edema (Mild lower extremity edema equal bilaterally) Neurologic/Psychiatric: Alert, Oriented x3, No Motor/Sensory Deficits, Normal Mood/Affect, prestidigitator II-XII Norm as Tested Skin: Normal Color, Warm/Dry Focused Exam Lactic Acid Level Progress/Results/Core Measures Results/Orders Lab Results Laboratory Tests Test 10/01/16 04:15 10/01/16 04:16 10/01/16 08:15 10/01/16 11:50 Range/Units B-Type Natriuretic Peptide 149.7 H <100.0 PG/ML White Blood Count 8.6 4.3-11.0 10^3/uL Red Blood Count 3.82 L 4.35-5.85 10^6/uL Hemoglobin 10.6 L 11.5-16.0 G/DL Hematocrit 32 L 35-52 % Mean Corpuscular Volume 83 80-99 FL Mean Corpuscular Hemoglobin 28 25-34 PG Mean Corpuscular Hemoglobin Concent 34 32-36 G/DL Red Cell Distribution Width 13.6 10.0-14.5 % Platelet Count 193 130-400 10^3/uL Mean Platelet Volume 10.4 7.4-10.4 FL Neutrophils (%) (Auto) 77 H 42-75 % Lymphocytes (%) (Auto) 15 12-44 % Monocytes (%) (Auto) 7 0-12 % Eosinophils (%) (Auto) 1 0-10 % Basophils (%) (Auto) 0 0-10 % Neutrophils # (Auto) 6.6 1.8-7.8 X 10^3 Lymphocytes # (Auto) 1.3 1.0-4.0 X 10^3 Monocytes # (Auto) 0.6 0.0-1.0 X 10^3 Eosinophils # (Auto) 0.1 0.0-0.3 10^3/uL Basophils # (Auto) 0.0 0.0-0.1 10^3/uL Neutrophils % (Manual) 52 % Lymphocytes % (Manual) 7 % Monocytes % (Manual) 4 % Eosinophils % (Manual) 2 % Basophils % (Manual) 0 % Band Neutrophils 23 % Reactive Lymphocytes 12 % Toxic Granulation 1+ Clumped Platelets SLIGHT Prothrombin Time 14.4 12.2-14.7 SEC INR Comment 1.2 0.8-1.4 Activated Partial Thromboplast Time 33 24-35 SEC Sodium Level 133 L 135-145 MMOL/L Potassium Level 3.6 3.6-5.0 MMOL/L Chloride Level 100 98-107 MMOL/L Carbon Dioxide Level 21 21-32 MMOL/L Anion Gap 12 5-14 MMOL/L Blood Urea Nitrogen 31 H 7-18 MG/DL Creatinine 1.70 H 0.60-1.30 MG/DL Estimat Glomerular Filtration Rate 30 BUN/Creatinine Ratio 18 Glucose Level 73 70-105 MG/DL Lactic Acid Level 1.98 0.50-2.00 MMOL/L Calcium Level 9.1 8.5-10.1 MG/DL Magnesium Level 1.6 L 1.8-2.4 MG/DL Total Bilirubin 1.7 H 0.1-1.0 MG/DL Aspartate Amino Transf (AST/SGOT) 50 H 5-34 U/L Alanine Aminotransferase (ALT/SGPT) 30 0-55 U/L Alkaline Phosphatase 51 40-136 U/L Troponin I < 0.30 <0.30 NG/ML C-Reactive Protein High Sensitivity 42.71 H 0.00-0.50 MG/DL Total Protein 6.5 6.4-8.2 GM/DL Albumin 3.7 3.2-4.5 GM/DL Blood Gas Puncture Site RIGHT RADIAL Blood Gas Patient Temperature 97.5 Arterial Blood pH 7.35 L 7.37-7.43 Arterial Blood Partial Pressure CO2 38 35-45 MMHG Arterial Blood Partial Pressure O2 97 H 79-93 MMHG Arterial Blood HCO3 21 L 23-27 MMOL/L Arterial Blood Total CO2 22.1 21.0-31.0 MMOL/L Arterial Blood Oxygen Saturation 98 94-100 % Arterial Blood Base Excess -3.8 L -2.5-2.5 MMOL/L Afshin Test POSITIVE Blood Gas Ventilator Setting NO Blood Gas Inspired Oxygen 50% BIPAP Urine Color YELLOW Urine Clarity CLEAR Urine pH 5 5-9 Urine Specific [place] 1.015 L 1.016-1.022 Urine Protein 1+ H NEGATIVE Urine Glucose (UA) NEGATIVE NEGATIVE Urine Ketones NEGATIVE NEGATIVE Urine Nitrite NEGATIVE NEGATIVE Urine Bilirubin NEGATIVE NEGATIVE Urine Urobilinogen NORMAL NORMAL MG/DL Urine Leukocyte Esterase NEGATIVE NEGATIVE Urine RBC (Auto) NEGATIVE NEGATIVE Urine RBC NONE /HPF Urine WBC NONE /HPF Urine Squamous Epithelial Cells NONE /HPF Urine Crystals NONE /LPF Urine Amorphous Sediment MOD ESTUARDO URATES H /LPF Urine Bacteria NEGATIVE /HPF Urine Casts PRESENT /LPF Urine Hyaline Casts 0-2 H /LPF Urine Mucus NEGATIVE /LPF Urine Culture Indicated NO Micro Results Microbiology 10/01/16 Blood Culture - Preliminary, Resulted No growth 10/01/16 Blood Culture - Preliminary, Resulted No growth 10/01/16 Gram Stain - Final, Resulted 10/01/16 Sputum Culture - Preliminary, Resulted Results To Follow My Orders Orders - DAV GONZALEZ MD Albuterol/Ipra Inhalation Soln (Duoneb I (10/01/16 04:15) Svn Sm Volume Nebulizer Rt-Rfs (10/01/16 04:08) Cbc With Automated Diff (10/01/16 04:13) Comprehensive Metabolic Panel (10/01/16 04:13) Lactic Acid Analyzer (10/01/16 04:13) Blood Culture (10/01/16 04:13) Sputum Culture (10/01/16 04:13) Ua Culture If Indicated (10/01/16 04:13) Protime With Inr (10/01/16 04:13) Partial Thromboplastin Time (10/01/16 04:13) Chest 1 View, Ap/Pa Only (10/01/16 04:13) O2 (10/01/16 04:13) Saline Lock/Iv-Start (10/01/16 04:13) Saline Lock/Iv-Start (10/01/16 04:13) Vital Signs Adult Sepsis Patie Q1HR (10/01/16 04:13) Remove Rings In Anticipation O (10/01/16 04:13) Methylprednisolone Sod Succ (Solu-Medrol (10/01/16 04:15) Ekg Tracing (10/01/16 04:20) Monitor-Rhythm Ecg Trace Only (10/01/16 04:20) Troponin I (10/01/16 04:20) Diphenhydramine Injection (Benadryl Inje (10/01/16 04:30) Hs C Reactive Protein (10/01/16 04:29) Manual Differential (10/01/16 04:16) Ns Iv 1000 Ml (Sodium Chloride 0.9%) (10/01/16 06:10) Levofloxacin 750 Mg/150 Ml Iv (Levaquin (10/01/16 06:15) Medications Given in ED Current Medications Medications Dose Ordered Sig/Dominique Route Start Time Stop Time Status Last Admin Dose Admin Levofloxacin/ Dextrose 150 ml @ 100 mls/hr ONCE ONCE IV 10/01/16 06:15 10/01/16 07:44 DC 10/01/16 06:23 100 MLS/HR Sodium Chloride 1,000 ml @ 0 mls/hr Q0M ONCE IV 10/01/16 06:10 10/01/16 06:11 DC 10/01/16 06:24 0 MLS/HR Vital Signs/I&O Vital Sign - Last 12Hours 10/01/16 10/01/16 10/01/16 10/01/16 08:00 08:02 08:02 08:06 Temp 97.5 97.5 Pulse 69 69 59 Resp 18 18 23 B/P (MAP) 100/55 100/55 Pulse Ox 97 97 97 O2 Delivery NIV Bilevel NIV Bilevel NIV/Bilevel O2 Flow Rate 50.00 50.00 50.00 FiO2 50 10/01/16 10/01/16 10/01/16 10/01/16 08:12 09:00 09:47 09:47 Pulse 58 56 56 Resp 18 20 B/P (MAP) 92/49 Pulse Ox 100 99 99 O2 Delivery NIV Bilevel NIV CPAP O2 Flow Rate 50.00 50.00 FiO2 50 10/01/16 10/01/16 10/01/16 10/01/16 10:00 11:00 12:00 12:00 Pulse 62 65 59 Resp 16 28 17 B/P (MAP) 94/58 94/51 91/48 Pulse Ox 95 97 97 O2 Delivery NIV Bilevel NIV Bilevel NIV Bilevel NIV Bilevel O2 Flow Rate 50.00 50.00 50.00 FiO2 50 10/01/16 10/01/16 10/01/16 10/01/16 13:00 14:00 15:28 15:30 Pulse 60 60 63 Resp 17 17 20 B/P (MAP) 92/49 109/55 Pulse Ox 97 99 98 97 O2 Delivery NIV Bilevel NIV Bilevel Nasal Cannula O2 Flow Rate 50.00 50.00 50.00 3.00 10/01/16 10/01/16 16:05 16:05 Temp 97.2 B/P (MAP) O2 Delivery Nasal Cannula Nasal Cannula O2 Flow Rate 5.00 5.00 Blood Pressure Mean: 79 Progress Note : Progress Note Patient received Solu-Medrol and a liter of IV fluids. Patient felt there may be an allergic component to her COPD exacerbation and Benadryl was also administered. After pneumonia was identified Levaquin was initiated. DuoNeb treatment was given. Just prior to admission, respiratory therapy had concerns about the patient being admitted to the floor as she was demonstrating some respiratory fatigue. Admission was changed to ICU. BiPAP was initiated prior to transfer to the ICU. Patient was wearing out with increased work of breathing. ECG Initial ECG Impression Date: Oct 01, 2016 Initial ECG Impression Time: 04:23 Initial ECG Rate: 70 Initial ECG Rhythm: Normal Sinus Initial ECG Intervals: Normal Comment Normal sinus rhythm with no ST elevation or depression. Normal intervals or axis deviation. T waves are flattened in multiple leads. Diagnostic Imaging Diagonstic Imaging: Xray Plain Films/CT/US/NM/MRI: chest Comments X-ray viewed by me and compared with prior. Report not yet available. Infiltrate is present in multiple lobes including all 3 lobes on the right and the left lower lobe. Departure Communication Communication Dr. Claudio Communication/Consulting Dr. Reid Impression Impression: Primary Impression: Pneumonia Qualified Codes: J18.9 - Pneumonia, unspecified organism Additional Impressions: COPD exacerbation Acute renal failure Qualified Codes: N17.9 - Acute kidney failure, unspecified Disposition: ADMITTED INPATIENT Condition: Improved Decision to Admit Reason: Admit from ER (General) Decision to Admit/Date: Oct 01, 2016 Time/Decision to Admit Time: 06:10 Departure-Patient Inst. Referrals: ALVERTO MAGUIRE DO (PCP) Primary Care Physician CHERIE JUAREZ (Family) Primary Care Physician DAV GONZALEZ MD Oct 01, 2016 06:31
--- NOTE | 2016-10-01 07:34 | Diagnostic Imaging Report ---
INDICATION: Shortness of breath, COPD, asthma. COMPARISON STUDY: Chest from 07/08/2015. FINDINGS: Portable semiupright view of the chest demonstrates patchy infiltrates throughout the right lung and in the left base. Heart size is upper limits of normal. Vascularity is normal. There are no pleural effusions. IMPRESSION: There are bilateral pulmonary infiltrates. Dictated by: Dictated on workstation # [id number]
[2016-10-01] MEDS ORDERED: RT-ALBUTEROL SULF 2.5 MG/3 ML PRE-MIX VIAL IH PRN (08:15)
[2016-10-01 08:24] LABS: ABG BASE EXCESS -3.8 MMOL/L (-2.5-2.5); ABG HCO3 21 MMOL/L (23-27); ABG OXYGEN SATURATION 98 % (94-100); ABG PCO2 38 MMHG (35-45); ABG PH 7.35 (7.37-7.43); ABG PO2 97 MMHG (79-93); ABG TCO2 22.1 MMOL/L (21.0-31.0); ALLENS TEST POSITIVE; PATIENT TEMP 97.5
[2016-10-01] MEDS ORDERED: NS IV 1000 ML 1,000 ML IV SCH (08:45)
[2016-10-01] MEDS: RT-ALBUTEROL/IPRATROPIUM 3 ML (DUONEB) VIAL IH SCH ×4 (09:47→22:57)
--- NOTE | 2016-10-01 10:01 | History & Physicial (CHS) ---
HPI History of Present Illness: 66yo woman well known to [facility] presents with longstanding history of respiratory failure, vocal cord dysfunction, COPD, and morbid obesity. Patient came to ER with complaints of barking cough and difficulty breathing worsening in dar past few days. Subjective fever at home. States she has been using her home inhalers but sx continued to worsen, prompting her to seek treatment. Of note, her history is somewhat abbreviated by the BiPAP. Source: patient Exam Limitations: clinical condition Date seen by provider: Oct 01, 2016 Time Seen by Provider: 08:30 Attending Physician Deepika Claudio MD PCP Geetha Patrick DO Consult Zelalem Reid DO Date of Admission Oct 01, 2016 at 6:28 am Home Medications Home Medications Reviewed patient Home Medication Reconciliation Form Allergies Coded Allergies: dornase lloyd (Verified Allergy, Unknown, RAPID HEART BEAT, 05/25/15) Penicillins (Verified Adverse Reaction, Mild, NAUSEA, 05/25/15) codeine (Verified Adverse Reaction, Mild, NAUSEA, PT TAKES HYDROCODONE AT HOME, 05/25/15) IFT-Rqmjof-Rccbpz Hx Patient Social History Alcohol Use: Denies Use Recreational Drug Use: No Smoking Status: Former Smoker Former smoker/When Quit: May 22, 2001 Type Used: Cigarettes 2nd Hand Smoke Exposure: Yes Recent Foreign Travel: No Contact w/other who traveled: No Recent Hopitalizations: Yes (ER VISIT 07/22/16 FOR ABD PAIN, STATES "I HAVE AN ULCER.") Recent Infectious Disease Expo: No Immunizations Up To Date Tetanus Booster (TDap): Unknown Date of Pneumonia Vaccine: Dec 22, 2014 Date of Influenza Vaccine: Dec 21, 2015 Past Medical History Past Medical History 1. Dysphagia with risk for aspiration per Speech post op cervical fusion.02/03. Resolved per swallow study. 2. DJD 3. COPD- on home O2 4. DM 5. HLP 6. RLE weakness with AFO secondary to "peripheral neuropathy" 7. STACY- recently started on CPAP 8. Morbid Obesity 9. History of LLL pneumonia sp surgery 02/03 with work up by Dr. Reid in the past 10. Fibromyalgia 11. IBS 12. Coronary artery disease with stenting 13. 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 ACDF C5-7 02/03 2. 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 3. Appendectomy 4. Rotator cuff repair 93 5. Tonsillectomy 6. Tracheostomy 05/09 Family Medical History Significant Family History: No Pertinent Family Hx Family History: Cancer 03 MOTHER (lung cancer 1987) Cardiovascular disease G8 BROTHER G8 SISTER Diabetes mellitus G8 SISTER Family history: Asthma 03 MOTHER Family history: Cardiovascular disease 03 FATHER Family history: Hypertension 03 MOTHER Family history: Osteoporosis 03 MOTHER History of - respiratory disease Hypertension G8 BROTHER G8 SISTER Respiratory disorder G8 BROTHER (LUNG CA) Stroke 03 MOTHER (1970,s stroke paraylsis lower extremies w/c ) Review of Systems (CHC) Constitutional: no symptoms reported All Other Systems Reviewed Negative Unless Noted: No (Negative excepted noted.) Reviewed Test Results Reviewed Test Results Lab Laboratory Tests Test 10/01/16 04:15 10/01/16 04:16 10/01/16 08:15 Range/Units B-Type Natriuretic Peptide 149.7 H <100.0 PG/ML White Blood Count 8.6 4.3-11.0 10^3/uL Red Blood Count 3.82 L 4.35-5.85 10^6/uL Hemoglobin 10.6 L 11.5-16.0 G/DL Hematocrit 32 L 35-52 % Mean Corpuscular Volume 83 80-99 FL Mean Corpuscular Hemoglobin 28 25-34 PG Mean Corpuscular Hemoglobin Concent 34 32-36 G/DL Red Cell Distribution Width 13.6 10.0-14.5 % Platelet Count 193 130-400 10^3/uL Mean Platelet Volume 10.4 7.4-10.4 FL Neutrophils (%) (Auto) 77 H 42-75 % Lymphocytes (%) (Auto) 15 12-44 % Monocytes (%) (Auto) 7 0-12 % Eosinophils (%) (Auto) 1 0-10 % Basophils (%) (Auto) 0 0-10 % Neutrophils # (Auto) 6.6 1.8-7.8 X 10^3 Lymphocytes # (Auto) 1.3 1.0-4.0 X 10^3 Monocytes # (Auto) 0.6 0.0-1.0 X 10^3 Eosinophils # (Auto) 0.1 0.0-0.3 10^3/uL Basophils # (Auto) 0.0 0.0-0.1 10^3/uL Neutrophils % (Manual) 52 % Lymphocytes % (Manual) 7 % Monocytes % (Manual) 4 % Eosinophils % (Manual) 2 % Basophils % (Manual) 0 % Band Neutrophils 23 % Reactive Lymphocytes 12 % Toxic Granulation 1+ Clumped Platelets SLIGHT Prothrombin Time 14.4 12.2-14.7 SEC INR Comment 1.2 0.8-1.4 Activated Partial Thromboplast Time 33 24-35 SEC Sodium Level 133 L 135-145 MMOL/L Potassium Level 3.6 3.6-5.0 MMOL/L Chloride Level 100 98-107 MMOL/L Carbon Dioxide Level 21 21-32 MMOL/L Anion Gap 12 5-14 MMOL/L Blood Urea Nitrogen 31 H 7-18 MG/DL Creatinine 1.70 H 0.60-1.30 MG/DL Estimat Glomerular Filtration Rate 30 BUN/Creatinine Ratio 18 Glucose Level 73 70-105 MG/DL Lactic Acid Level 1.98 0.50-2.00 MMOL/L Calcium Level 9.1 8.5-10.1 MG/DL Total Bilirubin 1.7 H 0.1-1.0 MG/DL Aspartate Amino Transf (AST/SGOT) 50 H 5-34 U/L Alanine Aminotransferase (ALT/SGPT) 30 0-55 U/L Alkaline Phosphatase 51 40-136 U/L Troponin I < 0.30 <0.30 NG/ML C-Reactive Protein High Sensitivity 42.71 H 0.00-0.50 MG/DL Total Protein 6.5 6.4-8.2 GM/DL Albumin 3.7 3.2-4.5 GM/DL Blood Gas Puncture Site RIGHT RADIAL Blood Gas Patient Temperature 97.5 Arterial Blood pH 7.35 L 7.37-7.43 Arterial Blood Partial Pressure CO2 38 35-45 MMHG Arterial Blood Partial Pressure O2 97 H 79-93 MMHG Arterial Blood HCO3 21 L 23-27 MMOL/L Arterial Blood Total CO2 22.1 21.0-31.0 MMOL/L Arterial Blood Oxygen Saturation 98 94-100 % Arterial Blood Base Excess -3.8 L -2.5-2.5 MMOL/L Afshin Test POSITIVE Blood Gas Ventilator Setting NO Blood Gas Inspired Oxygen 50% BIPAP Radiology Date of Exam:10/01/16 CHEST 1 VIEW, AP/PA ONLY INDICATION: Shortness of breath, COPD, asthma. COMPARISON STUDY: Chest from 07/08/2015. FINDINGS: Portable semiupright view of the chest demonstrates patchy infiltrates throughout the right lung and in the left base. Heart size is upper limits of normal. Vascularity is normal. There are no pleural effusions. IMPRESSION: There are bilateral pulmonary infiltrates. Physical Exam-([facility]) Physical Exam Vital Signs VS - Last 72 Hours, by Label 10/01/16 10/01/16 10/01/16 10/01/16 04:05 04:15 04:16 08:06 Temp 99.9 Pulse 70 59 Resp 16 23 B/P (MAP) 121/59 Pulse Ox 86 94 94 97 O2 Delivery Room Air Nasal Cannula Nasal Cannula O2 Flow Rate 4.00 4.00 50.00 10/01/16 08:12 Pulse 58 Capillary Refill : Less Than 3 Seconds General Appearance: WD/WN, mild distress, obese HEENT: PERRL/EOMI, pharynx normal Neck: non-tender, full range of motion, supple, normal inspection (well healed tracheostomy scar) Respiratory: respiratory distress, accessory muscle use, wheezing, expiration Cardiovascular: regular rate, rhythm, no edema, no gallop, no JVD, no murmur, other (good cap refill <2 sec) Gastrointestinal: normal bowel sounds, non tender, soft, no organomegaly Extremities: normal range of motion, non-tender, normal inspection, no pedal edema, no calf tenderness, normal capillary refill Neurologic/Psychiatric: home health care physician II-XII nml as tested, no motor/sensory deficits, alert, normal mood/affect, oriented x 3 Skin: normal color, warm/dry Comments FOCUSED EXAM NORMAL DOCUMENTED ABOVE Assessment/Plan Assessment/Plan Admission Dx SEPTIC SHOCK COMMUNITY ACQUIRED PNEUMONIA ACUTE ON CHRONIC RESPIRATORY FAILURE DIABETES MELLITUS TYPE 2, NON INSULIN REQUIRING Plan SEPTIC SHOCK ADM: protocol initiated with fluid boluses, has received Levaquin (PCN allergy) . will monitor in ICU for now. Have consulted Dr Reid who told me he thinks intubation may be needed - as it has multiple times in dar past. BLood cultures pending. COMMUNITY ACQUIRED PNEUMONIA ACUTE ON CHRONIC RESPIRATORY FAILURE ADM: On BiPAP now, will see how she does over the next few hours to see if intubation is required. Levaquin right now, cultures pending. IV steroids, MAT protocol. DIABETES MELLITUS TYPE 2, NON INSULIN REQUIRING ADM: SSI per ICU protocol for now. NPO due to BiPAP. ACUTE KIDNEY INJURY ADM: Baseline creatinine 0.9, up to 1.7 today. will monitor again in 12h, after fluid boluses. DVT Proph: lovenox GI proph: continue home regimen. Diagnosis/Problems: Copy Copies To 1: CRYSTAL SANTIAGO MD, JULIE A MD Oct 01, 2016 10:01 am
[2016-10-01] MEDS ORDERED: fentaNYL INJECTION 100 MCG/2 ML AMP ONE (10:17)
[2016-10-01] MEDS ORDERED: MIDAZOLAM 2 MG/2 ML (VERSED) VIAL ONE (10:17)
[2016-10-01] MEDS: NS IV 1000 ML 1,000 ML IV SCH ×3 (10:20→20:46)
--- NOTE | 2016-10-01 10:57 | Pulmonary Procedures ---
Pulmonary Procedures Lumen: triple (US guided. No blood loss) Central Line Procedure: betadine prep, sterile drapes applied, sterile dressing applied Position: internal jugular (R) Anesthesia: Lidocaine Volume Anesthetic (ccs): 10 Complications: none Post Position: sutured, good blood return, position confirmed w/ CXR MILE SUMMERS DO Oct 01, 2016 10:57
--- NOTE | 2016-10-01 11:38 | Diagnostic Imaging Report ---
INDICATION: Line placement. Frontal chest obtained at 10:58 AM and compared with 4:44 AM the same day. There is a new right IJ central catheter tip overlying the upper SVC. There is no pneumothorax following line placement. Patchy infiltrates in the right upper lobe and base are again noted without significant change. There is milder infiltrate in the left base. IMPRESSION: No change in bilateral infiltrates right greater than left. New right IJ central catheter tip overlies the upper SVC. There is no pneumothorax following line placement. Dictated by: Dictated on workstation # [id number]
[2016-10-01 11:57] LABS: BILIRUBIN,URINE NEGATIVE (NEGATIVE); KETONES,URINE NEGATIVE (NEGATIVE); LEUKOCYTE ESTERASE ,URINE NEGATIVE (NEGATIVE); NITRITE,URINE NEGATIVE (NEGATIVE); PH,URINE 5 (5-9); PROTEIN,URINE 1+ (NEGATIVE); UROBILINOGEN,URINE NORMAL (NORMAL)
[2016-10-01 12:09] LABS: HYALINE CASTS, URINE 0-2 /LPF
[2016-10-01] MEDS ORDERED: NS IV 500 ML 500 ML ONE (12:12)
[2016-10-01] MEDS ORDERED: ALIR75PE SC (13:08)
[2016-10-01] MEDS ORDERED: CYCL1DRO OU (13:08)
[2016-10-01] MEDS ORDERED: METF500T8 PO (13:08)
[2016-10-01] MEDS ORDERED: GABA600T2 PO ×2 (13:08)
[2016-10-01] MEDS ORDERED: PANT40TA3 PO (13:08)
[2016-10-01] MEDS ORDERED: HYDR-3820 PO (13:08)
[2016-10-01] MEDS ORDERED: SUCR1TAB PO (13:20)
[2016-10-01] MEDS ORDERED: CHOL10007 PO (13:21)
[2016-10-01] MEDS: inSUlin (REGULAR) HUMAN 1 UNIT/0.01 ML (CHARGE PER UNIT) SC SCH ×2 (13:53→20:47)
--- NOTE | 2016-10-01 14:16 | Pulmonary Consultation ---
History of Present Illness History of Present Illness Date of Consultation 10/01/16 14:09 Time Seen by Provider: 14:09 Date of Admission History of Present Illness 66yo patient with hx of vocal cord dysfunction and COPD presented to ED secondary to worsening SOB. Pt has required mechanical ventilation 3-4 times in the past. Pt has been using home INh however symptoms have continue to progress. Currently patient is requiring noninvasive ventilation secondary to acute on chronic respiratory failure. Symptoms have been progressive over the last 3-4 days. I am consulted for pulmonary management. Allergies and Home Medications Allergies Coded Allergies: dornase lloyd (Verified Allergy, Unknown, RAPID HEART BEAT, 05/25/15) Penicillins (Verified Adverse Reaction, Mild, NAUSEA, 05/25/15) codeine (Verified Adverse Reaction, Mild, NAUSEA, PT TAKES HYDROCODONE AT HOME, 05/25/15) Home Medications Albuterol Sulfate 18 Gm Hfa.aer.ad, 2 PUFF INH Q4H PRN for SHORTNESS OF BREATH, (Reported) Alirocumab 75 Mg/1 Ml Pen.injctr, 75 MG SC EVERY 14 DAYS, (Reported) Aripiprazole 5 Mg Tablet, 2.5 MG PO BID, (Reported) TAKES 1/2 (5MG) TABLET Aspirin 81 Mg Tablet.dr, 81 MG PO DAILY, (Reported) Atorvastatin Calcium 20 Mg Tablet, 20 MG PO HS, (Reported) Buprenorphine 1 Each Patch.tdwk, 1 PATCH TD We, (Reported) Cetirizine HCl 10 Mg Tablet, 10 MG PO DAILY, (Reported) Cholecalciferol (Vitamin D3) 1,000 Unit Capsule, 1,000 UNIT PO DAILY, (Reported) Cyclosporine 1 Each Droperette, 1 DROP OU BID, (Reported) Fenofibrate Nanocrystallized 145 Mg Tablet, 145 MG PO DAILY, (Reported) Fluticasone Propionate 9.9 Ml [place].susp, 1 SPRAY NSEACH DAILY, (Reported) Fluticasone/Salmeterol 1 Each Blst.w.dev, 1 PUFF IH BID, (Reported) Gabapentin 600 Mg Tablet, 600 MG PO 1200, (Reported) Gabapentin 600 Mg Tablet, 1,200 MG PO HS, (Reported) TAKES 2 (600MG) TABLETS Glimepiride 2 Mg Tablet, 2 MG PO DAILY, (Reported) Hydrocodone/Acetaminophen 1 Each Tablet, 1 TAB PO QID PRN for PAIN-MODERATE, ( Reported) Ipratropium/Albuterol Sulfate 3 Ml Ampul.neb, 3 ML IH Q4H PRN for SHORTNESS OF BREATH, (Reported) Lisinopril 5 Mg Tablet, 5 MG PO DAILY, (Reported) Metformin HCl 500 Mg Tab.er.24h, 1,000 MG PO 1730, (Reported) Metoprolol Succinate 25 Mg Tab.er.24h, 25 MG PO DAILY, (Reported) Montelukast Sodium 10 Mg Tablet, 10 MG PO HS, (Reported) Multivit, Calc, Min/Folic Acid 400 Mcg Capsule, 1 CAP PO HS, (Reported) [place]-3/Dha/Epa/Fish Oil 1 Each Capsule, 2,000 MG PO BID, (Reported) TAKES 2 (1000MG) CAPSULES Pantoprazole Sodium 40 Mg Tablet.dr, 40 MG PO BID, (Reported) Sertraline HCl 100 Mg Tablet, 200 MG PO HS, (Reported) TAKES 2 (100MG) TABLETS Sucralfate 1 Gm Tablet, 1 GM PO ACHS PRN for STOMACH UPSET, (Reported) Tiotropium [place] 1 Inh Aerp, 1 CAP IH DAILY, (Reported) Past Fkvthrw-Tzeavz-Qypgrj Hx Patient Social History Alcohol Use: Denies Use Recreational Drug Use: No Smoking Status: Former Smoker Type Used: Cigarettes Former Smoker/When Quit: May 22, 2001 2nd Hand Smoke Exposure: Yes Recent Foreign Travel: No Contact w/Someone Who Travel: No Recent Infectious Disease Expo: No Recent Hopitalizations: Yes (ER VISIT 07/22/16 FOR ABD PAIN, STATES "I HAVE AN ULCER.") Immunizations Up To Date Tetanus Booster (TDap): Unknown PED Vaccines UTD: Yes Date of Pneumonia Vaccine: Dec 22, 2014 Date of Influenza Vaccine: Dec 21, 2015 Seasonal Allergies Seasonal Allergies: Yes Surgeries HX Surgeries: Yes (C-SPINE, RIGHT RCR, TRACH, eyelid lift) Surgeries: Appendectomy, Cardiac, Coronary Stent, Gallbladder, 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, Orthopedic, Tonsillectomy, Tracheostomy Respiratory Hx Respiratory Disorders: Yes (COPD, PLEURISY, WEARS OXYGEN, BRONCHOSPASM, VOCAL CORD SPASM, history of respiratory failure and tracheostomy) Respiratory Disorders: Asthma, Pneumonia, Chronic Bronchitis, COPD, Emphysema Cardiovascular Hx Cardiac Disorders: Yes (Cardiac stents x2) Cardiac Disorders: Coronary Artery Disease, High Cholesterol, Hypertension Neurological Hx Neurological Disorders: No 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 System Hx 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 Disorders: No Sexually Transmitted Disease: No 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: 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, Menopausal Genitourinary Hx Genitourinary Disorders: Yes Genitourinary Disorders: Bladder Infection, Kidney Stones Gastrointestinal Hx Gastrointestinal Disorders: Yes (SPASMODIC COLON) Gastrointestinal Disorders: Gastroesophageal Reflux Musculoskeletal Hx Musculoskeletal Disorders: Yes (NECK PAIN, CERVICAL STENOSIS, ) Musculoskeletal Disorders: Arthritis, Fibromyalgia, Rheumatoid Arthritis, Chronic Back Pain Endocrine Hx Endocrine Disorders: Yes Endocrine Disorders: Diabetes, Non-Insulin dep HEENT HX ENT Disorders: Yes (GLASSES, DENTURES, LARYNGOSPASM/VOCAL CORD SPASM) Loss of Vision: Denies Hearing Impairment: Denies Cancer Hx Cancer: No Psychosocial Hx Psychiatric Problems: Yes Behavioral Health Disorders: Anxiety, Depression Integumentary HX Skin/Integumentary Disorder: No Blood Transfusions Hx Blood Disorders: No Adverse Reaction to a Blood Tr: No Family Medical History Significant Family History: No Pertinent Family Hx Family Medial History: Cancer 03 MOTHER (lung cancer 1987) Cardiovascular disease G8 BROTHER G8 SISTER Diabetes mellitus G8 SISTER Family history: Asthma 03 MOTHER Family history: Cardiovascular disease 03 FATHER Family history: Hypertension 03 MOTHER Family history: Osteoporosis 03 MOTHER History of - respiratory disease Hypertension G8 BROTHER G8 SISTER Respiratory disorder G8 BROTHER (LUNG CA) Stroke 03 MOTHER (1969,s stroke paraylsis lower extremies w/c ) Review of Systems Time Seen by Provider: 14:12 Constitutional: Malaise, Sweats, Weakness, No: Chills, Fever, Other Eyes: No: Conjunctivae inflammation, Eyelid inflammation, Other, Pain, Redness , Vision change ENT: Nose discharge Respiratory: Cough, Dry, SOB with excertion, Shortness of breath, Wheezing Cardiovascular: Edema, Lt Headedness, Orthopnea, Palpitations, Paroxysmal Noc. Dyspnea, No: Chest Pain, Other Gastrointestinal: No: Abdominal Pain, Constipation, Diarrhea, Hematochezia, Melena, Nausea, Other, Vomiting Genitourinary: No Dysuria, No Frequency, No Incontinence, No Hematuria, No Retention, No Other Musculoskeletal: No: arm pain, back pain, foot pain, hand pain, leg pain, neck pain, other, shoulder pain Neurological: Incoordination, Weakness Exam Exam Vital Signs Date Time Temp Pulse Resp B/P (MAP) Pulse Ox O2 Delivery O2 Flow Rate FiO2 10/01/16 09:47 56 20 99 50.00 10/01/16 09:47 99 NIV CPAP 50 10/01/16 08:12 58 10/01/16 08:06 59 23 97 50.00 10/01/16 04:16 94 Nasal Cannula 4.00 10/01/16 04:15 94 Nasal Cannula 4.00 10/01/16 04:05 99.9 70 16 121/59 86 Room Air General Appearance: WD/WN, Moderate Distress HEENT: PERRL/EOMI, TMs Normal, Normal ENT Inspection, Pharynx Normal Neck: Normal Inspection Respiratory: No Accessory Muscle Use, No Respiratory Distress, Wheezing, Other (Delayed forced expiratory phase, barking cough) Cardiovascular: Regular Rate, Rhythm, No Murmur, Other (Mild lower extremity edema) Capillary Refill: Less Than 3 Seconds Gastrointestinal: normal bowel sounds, non tender, soft, no organomegaly Extremity: Pedal Edema (Mild lower extremity edema equal bilaterally) Neurologic/Psychiatric: Alert, Oriented x3, No Motor/Sensory Deficits, Normal Mood/Affect, lime sludge mixer II-XII Norm as Tested Skin: Normal Color, Warm/Dry Results Lab Laboratory Tests 10/01/16 04:16 Assessment/Plan Assessment/Plan -Acute on Chronic respiratory failure -Pt currently requiring BiPAP currently -Pneumonia with respiratory failure -Obesity Hx of vocal cord paralysis Poor IV Access -Will place central line 255 70 min spent with patient, family and medical staff discussing medical care. MILE SUMMERS DO Oct 01, 2016 14:16
--- OUTSIDE RECORDS SUMMARY | 2016-10-01 19:05 | XMS REPORT | Continuity of Care Document ---
Author Author [facility] of [facility] Address Unknown Phone Unavailable Allergies Active Description Code Type Severity Reaction Onset Reported/Identified Relationship to Patient Clinical Status Yes Codeine Drug Allergy N/A N/A 08/14/2012 Yes Penicillins Drug Allergy N/A N/A 08/14/2012 Yes codeine [id number] Drug Allergy Unknown NAUSEA 02/28/2014 Yes Penicillins [id number] Drug Allergy Unknown NAUSEA 02/28/2014 Yes codeine [id number] Drug Allergy Mild NAUSEA, PT TAKE 05/25/2015 Yes Penicillins [id number] Drug Allergy Mild NAUSEA 05/25/2015 Yes Dornase Wesley [id number] Drug Allergy Unknown RAPID HEART DEANNA 05/25/2015 Medications Problems Date Dx Coded Attending Type Code Diagnosis Diagnosed By 08/14/2012 724.2 LUMBAGO/ LOW BACK PAIN 08/14/2012 WILL CANO MD 724.2 LUMBAGO/ LOW BACK PAIN 08/14/2012 WILL CANO MD 724.2 LUMBAGO/ LOW BACK PAIN 08/14/2012 MAGUIRE ALVERTO RAMSEY 724.2 LUMBAGO/ LOW BACK PAIN 08/14/2012 MAGUIRE PAUL RAMSEYA K 724.2 LUMBAGO/ LOW BACK PAIN 08/14/2012 MAGUIRE PAUL RAMSEYA K 724.2 LUMBAGO/ LOW BACK PAIN 08/14/2012 MAGUIRE PAUL RAMSEYA K 724.2 LUMBAGO/ LOW BACK PAIN 08/14/2012 MAGUIRE PAUL RAMSEYA K 724.2 LUMBAGO/ LOW BACK PAIN 08/14/2012 COREY JUAREZ APRN 724.2 LUMBAGO/ LOW BACK PAIN 08/14/2012 MAGUIRE PAUL RAMSEYA Danyell 724.2 LUMBAGO/ LOW BACK PAIN 08/14/2012 MAGUIRE PAUL RAMSEYA K 724.2 LUMBAGO/ LOW BACK PAIN 08/14/2012 MADL PICTURE ENGRAVER, COREY L 724.2 LUMBAGO/ LOW BACK PAIN 08/14/2012 MADL PICTURE ENGRAVER, COREY L 724.2 LUMBAGO/ LOW BACK PAIN 08/14/2012 MAGUIRE DO, ALVERTO K 724.2 LUMBAGO/ LOW BACK PAIN 08/14/2012 MAGUIRE DO, ALVERTO K 724.2 LUMBAGO/ LOW BACK PAIN 08/14/2012 MADL PICTURE ENGRAVER, COREY L 724.2 LUMBAGO/ LOW BACK PAIN 08/14/2012 MAGUIRE DO, ALVERTO K 724.2 LUMBAGO/ LOW BACK PAIN 08/14/2012 MADL PICTURE ENGRAVER, COREY L 724.2 LUMBAGO/ LOW BACK PAIN 08/14/2012 MADL PICTURE ENGRAVER, COREY L 724.2 LUMBAGO/ LOW BACK PAIN 08/14/2012 AMGUIRE DO, ALVERTO K 724.2 LUMBAGO/ LOW BACK PAIN 08/14/2012 MAGUIRE DO, ALVERTO K 724.2 LUMBAGO/ LOW BACK PAIN 08/14/2012 MADL PICTURE ENGRAVER, COREY L 724.2 LUMBAGO/ LOW BACK PAIN 08/14/2012 MAGUIRE DO, ALVERTO K 724.2 LUMBAGO/ LOW BACK PAIN 08/14/2012 GILMER PICTURE ENGRAVER, BRYSON A 724.2 LUMBAGO/ LOW BACK PAIN 08/14/2012 MADL PICTURE ENGRAVER, COREY L 724.2 LUMBAGO/ LOW BACK PAIN 08/14/2012 GILMER PICTURE ENGRAVER, BRYSON A 724.2 LUMBAGO/ LOW BACK PAIN 08/14/2012 TWAN PICTURE ENGRAVER, EDUARDO R 724.2 LUMBAGO/ LOW BACK PAIN 08/14/2012 MADL PICTURE ENGRAVER, COREY L 724.2 LUMBAGO/ LOW BACK PAIN 08/14/2012 MADL PICTURE ENGRAVER, COREY L 724.2 LUMBAGO/ LOW BACK PAIN 08/14/2012 MADL PICTURE ENGRAVER, COREY L 724.2 LUMBAGO/ LOW BACK PAIN 08/14/2012 SABIHA PICTURE ENGRAVER, ANGIE S 724.2 LUMBAGO/ LOW BACK PAIN 08/14/2012 SABIHA PICTURE ENGRAVER, ANGIE S 724.2 LUMBAGO/ LOW BACK PAIN 08/14/2012 MADL PICTURE ENGRAVER, COREY L 724.2 LUMBAGO/ LOW BACK PAIN 08/14/2012 MADL PICTURE ENGRAVER, COREY L 724.2 LUMBAGO/ LOW BACK PAIN 08/14/2012 ALVERTO MAGUIRE DO 724.2 LUMBAGO/ LOW BACK PAIN 08/14/2012 MADL PICTURE ENGRAVER, COREY L 724.2 LUMBAGO/ LOW BACK PAIN 08/14/2012 MADL PICTURE ENGRAVER, COREY L 724.2 LUMBAGO/ LOW BACK PAIN 08/14/2012 MADL PICTURE ENGRAVER, COREY L 724.2 LUMBAGO/ LOW BACK PAIN 01/29/2013 WAGNER MOLINA MD Ot 250.00 DIAB AVELINA WO COMPL, TYPE II OR UNSPEC TY 01/29/2013 WAGNER MOLINA MD Ot 278.00 OBESITY, NOS 01/29/2013 WAGNER MOLINA MD Ot 401.9 HYPERTENSION NOS 01/29/2013 WAGNER MOLINA MD Ot 486 PNEUMONIA, ORGANISM NOS 01/29/2013 WAGNER MOLINA MD Ot 493.22 CHRONIC OBSTRUCTIVE ASTHMA, W (ACUTE) EX 01/29/2013 WAGNER MOLINA MD Ot 518.0 PULMONARY COLLAPSE 01/29/2013 WAGNER MOLINA MD Ot 530.81 ESOPHAGEAL REFLUX 01/29/2013 WAGNER MOLINA MD Ot 721.1 CERV SPONDYL W MYELOPATH 01/29/2013 WAGNER MOLINA MD Ot 729.1 MYALGIA AND MYOSITIS NOS 01/29/2013 WAGNER MOLINA MD Ot V15.82 HISTORY OF TOBACCO USE 01/29/2013 WAGNER MOLINA MD Ot V46.2 SUPPLEMENTAL OXYGEN 01/29/2013 WAGNER MOLINA MD Ot V85.33 BODY MASS INDEX 33.0-33.9, ADULT 02/05/2013 WAGNER MOLINA MD Ot 250.00 DIAB AVELINA WO COMPL, TYPE II OR UNSPEC TY 02/05/2013 WAGNER MOLINA MD Ot 272.0 PURE HYPERCHOLESTEROLEM 02/05/2013 WAGNER MOLINA MD Ot 272.4 HYPERLIPIDEMIA NEC/NOS 02/05/2013 WAGNER MOLINA MD Ot 300.00 ANXIETY STATE NOS 02/05/2013 WAGNER MOLINA MD Ot 311 DEPRESSIVE DISORDER NEC 02/05/2013 WAGNER MOLINA MD Ot 327.23 OBSTRUCTIVE SLEEP APNEA (ADULT) (PEDIATR 02/05/2013 WAGNER MOLINA MD Ot 401.9 HYPERTENSION NOS 02/05/2013 WAGNER MOLINA MD Ot 493.20 CHRONIC OBSTRUCTIVE ASTHMA, NOS 02/05/2013 WAGNER MOLINA MD Ot 507.0 FOOD/VOMIT PNEUMONITIS 02/05/2013 WAGNER MOLINA MD Ot 530.81 ESOPHAGEAL REFLUX 02/05/2013 WAGNER MOLINA MD Ot 729.1 MYALGIA AND MYOSITIS NOS 02/05/2013 WAGNER MOLINA MD Ot 786.09 RESPIRATORY ABNORM NEC 02/05/2013 WAGNER MOLINA MD Ot 786.39 OTHER HEMOPTYSIS 02/05/2013 WAGNER MOLINA MD Ot 787.20 DYSPHAGIA, UNSPECIFIED 05/04/2013 ZELALEM SUMMERS DO Ot 327.23 OBSTRUCTIVE SLEEP APNEA (ADULT) (PEDIATR 05/05/2013 WILL CANO MD 250.60 DIABETES WITH NEUROLOGICAL MANIFESTATIONS TYPE II OR UNSPECIFIED TYPE NOT STATED UNCONTROLLED 05/05/2013 WILL CANO MD 272.4 OTHER AND UNSPECIFIED HYPERLIPIDEMIA 05/05/2013 WILL CANO MD 401.1 BENIGN ESSENTIAL HYPERTENSION 05/05/2013 WILL CANO MD 496 CHRONIC AIRWAY OBSTRUCTION NOT ELSEWHERE CLASSIFIED 05/05/2013 WILL CANO MD 599.0 URINARY TRACT INFECTION SITE NOT SPECIFIED 05/05/2013 WILL CANO MD 627.9 UNSPECIFIED MENOPAUSAL AND POSTMENOPAUSAL DISORDER 05/05/2013 WILL CANO MD 723.1 CERVICALGIA 05/05/2013 WILL CANO MD 250.60 DIABETES WITH NEUROLOGICAL MANIFESTATIONS TYPE II OR UNSPECIFIED TYPE NOT STATED UNCONTROLLED 05/05/2013 WILL CANO MD M 272.4 OTHER AND UNSPECIFIED HYPERLIPIDEMIA 05/05/2013 WILL CANO MD 401.1 BENIGN ESSENTIAL HYPERTENSION 05/05/2013 WILL CANO MD 496 CHRONIC AIRWAY OBSTRUCTION NOT ELSEWHERE CLASSIFIED 05/05/2013 WILL CANO MD M 599.0 URINARY TRACT INFECTION SITE NOT SPECIFIED 05/05/2013 WILL CANO MD M 627.9 UNSPECIFIED MENOPAUSAL AND POSTMENOPAUSAL DISORDER 05/05/2013 WILL CANO MD 723.1 CERVICALGIA 05/05/2013 MAGUIRE DO, ALVERTO K 250.60 DIABETES WITH NEUROLOGICAL MANIFESTATIONS TYPE II OR UNSPECIFIED TYPE NOT STATED UNCONTROLLED 05/05/2013 MAGUIRE DO, ALVERTO K 272.4 OTHER AND UNSPECIFIED HYPERLIPIDEMIA 05/05/2013 MAGUIRE DO, ALVERTO K 401.1 BENIGN ESSENTIAL HYPERTENSION 05/05/2013 MAGUIRE DO, ALVERTO K 496 CHRONIC AIRWAY OBSTRUCTION NOT ELSEWHERE CLASSIFIED 05/05/2013 MAGUIRE DO, ALVERTO K 599.0 URINARY TRACT INFECTION SITE NOT SPECIFIED 05/05/2013 MAGUIRE DO ALVERTO K 627.9 UNSPECIFIED MENOPAUSAL AND POSTMENOPAUSAL DISORDER 05/05/2013 MAGUIRE DO, ALVERTO K 723.1 CERVICALGIA 05/05/2013 MAGUIRE DO, ALVERTO K 250.60 DIABETES WITH NEUROLOGICAL MANIFESTATIONS TYPE II OR UNSPECIFIED TYPE NOT STATED UNCONTROLLED 05/05/2013 MAGUIRE DO ALVERTO K 272.4 OTHER AND UNSPECIFIED HYPERLIPIDEMIA 05/05/2013 MAGUIRE DO, ALVERTO K 401.1 BENIGN ESSENTIAL HYPERTENSION 05/05/2013 MAGUIRE DO, ALVERTO K 496 CHRONIC AIRWAY OBSTRUCTION NOT ELSEWHERE CLASSIFIED 05/05/2013 MAGUIRE DO ALVERTO K 599.0 URINARY TRACT INFECTION SITE NOT SPECIFIED 05/05/2013 MAGUIRE DO, ALVERTO K 627.9 UNSPECIFIED MENOPAUSAL AND POSTMENOPAUSAL DISORDER 05/05/2013 MAGUIRE DO, ALVERTO K 723.1 CERVICALGIA 05/05/2013 MAGUIRE DO ALVERTO K 250.60 DIABETES WITH NEUROLOGICAL MANIFESTATIONS TYPE II OR UNSPECIFIED TYPE NOT STATED UNCONTROLLED 05/05/2013 MAGUIRE DO, ALVERTO K 272.4 OTHER AND UNSPECIFIED HYPERLIPIDEMIA 05/05/2013 MAGUIRE DO ALVERTO K 401.1 BENIGN ESSENTIAL HYPERTENSION 05/05/2013 MAGUIRE DO ALVERTO K 496 CHRONIC AIRWAY OBSTRUCTION NOT ELSEWHERE CLASSIFIED 05/05/2013 MAGUIRE DO, ALVERTO K 599.0 URINARY TRACT INFECTION SITE NOT SPECIFIED 05/05/2013 MAGUIRE DO, ALVERTO K 627.9 UNSPECIFIED MENOPAUSAL AND POSTMENOPAUSAL DISORDER 05/05/2013 MAGUIRE DO, ALVERTO K 723.1 CERVICALGIA 05/05/2013 MAGUIRE DO ALVERTO K 250.60 DIABETES WITH NEUROLOGICAL MANIFESTATIONS TYPE II OR UNSPECIFIED TYPE NOT STATED UNCONTROLLED 05/05/2013 MAGUIRE DO ALVERTO K 272.4 OTHER AND UNSPECIFIED HYPERLIPIDEMIA 05/05/2013 MAGUIRE DO, ALVERTO K 401.1 BENIGN ESSENTIAL HYPERTENSION 05/05/2013 MAGUIRE DO ALVERTO K 496 CHRONIC AIRWAY OBSTRUCTION NOT ELSEWHERE CLASSIFIED 05/05/2013 MAGUIRE DO, ALVERTO K 599.0 URINARY TRACT INFECTION SITE NOT SPECIFIED 05/05/2013 MAGUIRE DO, ALVERTO K 627.9 UNSPECIFIED MENOPAUSAL AND POSTMENOPAUSAL DISORDER 05/05/2013 MAGUIRE DO, ALVERTO K 723.1 CERVICALGIA 05/05/2013 MAGUIRE DO, ALVERTO K 250.60 DIABETES WITH NEUROLOGICAL MANIFESTATIONS TYPE II OR UNSPECIFIED TYPE NOT STATED UNCONTROLLED 05/05/2013 MAGUIRE DO ALVERTO K 272.4 OTHER AND UNSPECIFIED HYPERLIPIDEMIA 05/05/2013 MAGUIRE DO, ALVERTO K 401.1 BENIGN ESSENTIAL HYPERTENSION 05/05/2013 MAGUIRE DO, ALVERTO K 496 CHRONIC AIRWAY OBSTRUCTION NOT ELSEWHERE CLASSIFIED 05/05/2013 MAGUIRE DO, ALVERTO K 599.0 URINARY TRACT INFECTION SITE NOT SPECIFIED 05/05/2013 MAGUIRE DO, ALVERTO K 627.9 UNSPECIFIED MENOPAUSAL AND POSTMENOPAUSAL DISORDER 05/05/2013 MAGUIRE DO, ALVERTO K 723.1 CERVICALGIA 05/05/2013 MADL PICTURE ENGRAVER, COREY L 250.60 DIABETES WITH NEUROLOGICAL MANIFESTATIONS TYPE II OR UNSPECIFIED TYPE NOT STATED UNCONTROLLED 05/05/2013 MADL PICTURE ENGRAVER, COREY L 272.4 OTHER AND UNSPECIFIED HYPERLIPIDEMIA 05/05/2013 MADL PICTURE ENGRAVER, COREY L 401.1 BENIGN ESSENTIAL HYPERTENSION 05/05/2013 MADL PICTURE ENGRAVER, COREY L 496 CHRONIC AIRWAY OBSTRUCTION NOT ELSEWHERE CLASSIFIED 05/05/2013 MADL PICTURE ENGRAVER, COREY L 599.0 URINARY TRACT INFECTION SITE NOT SPECIFIED 05/05/2013 MADL PICTURE ENGRAVER, COREY L 627.9 UNSPECIFIED MENOPAUSAL AND POSTMENOPAUSAL DISORDER 05/05/2013 MADL PICTURE ENGRAVER, COREY L 723.1 CERVICALGIA 05/05/2013 MAGUIRE DO, ALVERTO K 250.60 DIABETES WITH NEUROLOGICAL MANIFESTATIONS TYPE II OR UNSPECIFIED TYPE NOT STATED UNCONTROLLED 05/05/2013 MAGUIRE DO, ALVERTO K 272.4 OTHER AND UNSPECIFIED HYPERLIPIDEMIA 05/05/2013 MAGUIRE DO, ALVERTO K 401.1 BENIGN ESSENTIAL HYPERTENSION 05/05/2013 MAGUIRE DO, ALVERTO K 496 CHRONIC AIRWAY OBSTRUCTION NOT ELSEWHERE CLASSIFIED 05/05/2013 MAGUIRE DO, ALVERTO K 599.0 URINARY TRACT INFECTION SITE NOT SPECIFIED 05/05/2013 MAGUIRE DO, ALVERTO K 627.9 UNSPECIFIED MENOPAUSAL AND POSTMENOPAUSAL DISORDER 05/05/2013 MAGUIRE DO, ALVERTO K 723.1 CERVICALGIA 05/05/2013 MAGUIRE DO, ALVERTO K 250.60 DIABETES WITH NEUROLOGICAL MANIFESTATIONS TYPE II OR UNSPECIFIED TYPE NOT STATED UNCONTROLLED 05/05/2013 MAGUIRE DO, ALVERTO K 272.4 OTHER AND UNSPECIFIED HYPERLIPIDEMIA 05/05/2013 MAGUIRE DO, ALVERTO K 401.1 BENIGN ESSENTIAL HYPERTENSION 05/05/2013 MAGUIRE DO, ALVERTO K 496 CHRONIC AIRWAY OBSTRUCTION NOT ELSEWHERE CLASSIFIED 05/05/2013 MAGUIRE DO, ALVERTO K 599.0 URINARY TRACT INFECTION SITE NOT SPECIFIED 05/05/2013 MAGUIRE DO, ALVERTO K 627.9 UNSPECIFIED MENOPAUSAL AND POSTMENOPAUSAL DISORDER 05/05/2013 MAGUIRE DO, ALVERTO K 723.1 CERVICALGIA 05/05/2013 MADL PICTURE ENGRAVER, COREY L 250.60 DIABETES WITH NEUROLOGICAL MANIFESTATIONS TYPE II OR UNSPECIFIED TYPE NOT STATED UNCONTROLLED 05/05/2013 MADL PICTURE ENGRAVER, COREY L 272.4 OTHER AND UNSPECIFIED HYPERLIPIDEMIA 05/05/2013 MADL PICTURE ENGRAVER, COREY L 401.1 BENIGN ESSENTIAL HYPERTENSION 05/05/2013 MADL PICTURE ENGRAVER, COREY L 496 CHRONIC AIRWAY OBSTRUCTION NOT ELSEWHERE CLASSIFIED 05/05/2013 MADL PICTURE ENGRAVER, COREY L 599.0 URINARY TRACT INFECTION SITE NOT SPECIFIED 05/05/2013 MADL PICTURE ENGRAVER, COREY L 627.9 UNSPECIFIED MENOPAUSAL AND POSTMENOPAUSAL DISORDER 05/05/2013 MADL PICTURE ENGRAVER, COREY L 723.1 CERVICALGIA 05/05/2013 MADL PICTURE ENGRAVER, COREY L 250.60 DIABETES WITH NEUROLOGICAL MANIFESTATIONS TYPE II OR UNSPECIFIED TYPE NOT STATED UNCONTROLLED 05/05/2013 MADL PICTURE ENGRAVER, COREY L 272.4 OTHER AND UNSPECIFIED HYPERLIPIDEMIA 05/05/2013 MADL PICTURE ENGRAVER, COREY L 401.1 BENIGN ESSENTIAL HYPERTENSION 05/05/2013 MADL PICTURE ENGRAVER, COREY L 496 CHRONIC AIRWAY OBSTRUCTION NOT ELSEWHERE CLASSIFIED 05/05/2013 MADL PICTURE ENGRAVER, COREY L 599.0 URINARY TRACT INFECTION SITE NOT SPECIFIED 05/05/2013 MADL PICTURE ENGRAVER, COREY L 627.9 UNSPECIFIED MENOPAUSAL AND POSTMENOPAUSAL DISORDER 05/05/2013 MADL PICTURE ENGRAVER, COREY L 723.1 CERVICALGIA 05/05/2013 MAGUIRE DO, ALVERTO K 250.60 DIABETES WITH NEUROLOGICAL MANIFESTATIONS TYPE II OR UNSPECIFIED TYPE NOT STATED UNCONTROLLED 05/05/2013 MAGUIRE DO, ALVERTO K 272.4 OTHER AND UNSPECIFIED HYPERLIPIDEMIA 05/05/2013 MAGUIRE DO, ALVERTO K 401.1 BENIGN ESSENTIAL HYPERTENSION 05/05/2013 MAGUIRE DO, ALVERTO K 496 CHRONIC AIRWAY OBSTRUCTION NOT ELSEWHERE CLASSIFIED 05/05/2013 MAGUIRE DO, ALVERTO K 599.0 URINARY TRACT INFECTION SITE NOT SPECIFIED 05/05/2013 MAGUIRE DO ALVERTO K 627.9 UNSPECIFIED MENOPAUSAL AND POSTMENOPAUSAL DISORDER 05/05/2013 MAGUIRE DO, ALVERTO K 723.1 CERVICALGIA 05/05/2013 MAGUIRE DO ALVERTO K 250.60 DIABETES WITH NEUROLOGICAL MANIFESTATIONS TYPE II OR UNSPECIFIED TYPE NOT STATED UNCONTROLLED 05/05/2013 MAGUIRE DO ALVERTO K 272.4 OTHER AND UNSPECIFIED HYPERLIPIDEMIA 05/05/2013 MAGUIRE DO ALVERTO K 401.1 BENIGN ESSENTIAL HYPERTENSION 05/05/2013 MAGUIRE DO ALVERTO K 496 CHRONIC AIRWAY OBSTRUCTION NOT ELSEWHERE CLASSIFIED 05/05/2013 ANDREZ DO ALVERTO K 599.0 URINARY TRACT INFECTION SITE NOT SPECIFIED 05/05/2013 MAGUIRE DO, ALVERTO K 627.9 UNSPECIFIED MENOPAUSAL AND POSTMENOPAUSAL DISORDER 05/05/2013 MAGUIRE DO, ALVERTO K 723.1 CERVICALGIA 05/05/2013 MADL PICTURE ENGRAVER, COREY L 250.60 DIABETES WITH NEUROLOGICAL MANIFESTATIONS TYPE II OR UNSPECIFIED TYPE NOT STATED UNCONTROLLED 05/05/2013 MADL PICTURE ENGRAVER, COREY L 272.4 OTHER AND UNSPECIFIED HYPERLIPIDEMIA 05/05/2013 MADL PICTURE ENGRAVER, COREY L 401.1 BENIGN ESSENTIAL HYPERTENSION 05/05/2013 MADL PICTURE ENGRAVER, COREY L 496 CHRONIC AIRWAY OBSTRUCTION NOT ELSEWHERE CLASSIFIED 05/05/2013 MADL PICTURE ENGRAVER, COREY L 599.0 URINARY TRACT INFECTION SITE NOT SPECIFIED 05/05/2013 MADL PICTURE ENGRAVER, COREY L 627.9 UNSPECIFIED MENOPAUSAL AND POSTMENOPAUSAL DISORDER 05/05/2013 MADL PICTURE ENGRAVER, COREY L 723.1 CERVICALGIA 05/05/2013 MAGUIRE DO ALVERTO K 250.60 DIABETES WITH NEUROLOGICAL MANIFESTATIONS TYPE II OR UNSPECIFIED TYPE NOT STATED UNCONTROLLED 05/05/2013 MAGUIRE DO ALVERTO K 272.4 OTHER AND UNSPECIFIED HYPERLIPIDEMIA 05/05/2013 MAGUIRE DO, ALVERTO K 401.1 BENIGN ESSENTIAL HYPERTENSION 05/05/2013 MAGUIRE DO, ALVERTO K 496 CHRONIC AIRWAY OBSTRUCTION NOT ELSEWHERE CLASSIFIED 05/05/2013 MAGUIRE DO, ALVERTO K 599.0 URINARY TRACT INFECTION SITE NOT SPECIFIED 05/05/2013 MAGUIRE DO, ALVERTO K 627.9 UNSPECIFIED MENOPAUSAL AND POSTMENOPAUSAL DISORDER 05/05/2013 MAGUIRE DO, ALVERTO K 723.1 CERVICALGIA 05/05/2013 MADL PICTURE ENGRAVER, COREY L 250.60 DIABETES WITH NEUROLOGICAL MANIFESTATIONS TYPE II OR UNSPECIFIED TYPE NOT STATED UNCONTROLLED 05/05/2013 MADL PICTURE ENGRAVER, COREY L 272.4 OTHER AND UNSPECIFIED HYPERLIPIDEMIA 05/05/2013 MADL PICTURE ENGRAVER, COREY L 401.1 BENIGN ESSENTIAL HYPERTENSION 05/05/2013 MADL PICTURE ENGRAVER, COREY L 496 CHRONIC AIRWAY OBSTRUCTION NOT ELSEWHERE CLASSIFIED 05/05/2013 MADL PICTURE ENGRAVER, COREY L 599.0 URINARY TRACT INFECTION SITE NOT SPECIFIED 05/05/2013 MADL PICTURE ENGRAVER, COREY L 627.9 UNSPECIFIED MENOPAUSAL AND POSTMENOPAUSAL DISORDER 05/05/2013 MADL PICTURE ENGRAVER, COREY L 723.1 CERVICALGIA 05/05/2013 MADL PICTURE ENGRAVER, COREY L 250.60 DIABETES WITH NEUROLOGICAL MANIFESTATIONS TYPE II OR UNSPECIFIED TYPE NOT STATED UNCONTROLLED 05/05/2013 MADL PICTURE ENGRAVER, COREY L 272.4 OTHER AND UNSPECIFIED HYPERLIPIDEMIA 05/05/2013 MADL PICTURE ENGRAVER, COREY L 401.1 BENIGN ESSENTIAL HYPERTENSION 05/05/2013 MADL PICTURE ENGRAVER, COREY L 496 CHRONIC AIRWAY OBSTRUCTION NOT ELSEWHERE CLASSIFIED 05/05/2013 MADL PICTURE ENGRAVER, COREY L 599.0 URINARY TRACT INFECTION SITE NOT SPECIFIED 05/05/2013 MADL PICTURE ENGRAVER, COREY L 627.9 UNSPECIFIED MENOPAUSAL AND POSTMENOPAUSAL DISORDER 05/05/2013 MADL PICTURE ENGRAVER, COREY L 723.1 CERVICALGIA 05/05/2013 MAGUIRE DO, ALVERTO K 250.60 DIABETES WITH NEUROLOGICAL MANIFESTATIONS TYPE II OR UNSPECIFIED TYPE NOT STATED UNCONTROLLED 05/05/2013 MAGUIRE DO, ALVERTO K 272.4 OTHER AND UNSPECIFIED HYPERLIPIDEMIA 05/05/2013 MAGUIRE DO, ALVERTO K 401.1 BENIGN ESSENTIAL HYPERTENSION 05/05/2013 MAGUIRE DO, ALVERTO K 496 CHRONIC AIRWAY OBSTRUCTION NOT ELSEWHERE CLASSIFIED 05/05/2013 MAGUIRE DO, ALVERTO K 599.0 URINARY TRACT INFECTION SITE NOT SPECIFIED 05/05/2013 MAGUIRE DO, ALVERTO K 627.9 UNSPECIFIED MENOPAUSAL AND POSTMENOPAUSAL DISORDER 05/05/2013 MAGUIRE DO, ALVERTO K 723.1 CERVICALGIA 05/05/2013 MAGUIRE DO, ALVERTO K 250.60 DIABETES WITH NEUROLOGICAL MANIFESTATIONS TYPE II OR UNSPECIFIED TYPE NOT STATED UNCONTROLLED 05/05/2013 MAGUIRE DO, ALVERTO K 272.4 OTHER AND UNSPECIFIED HYPERLIPIDEMIA 05/05/2013 MAGUIRE DO, ALVERTO K 401.1 BENIGN ESSENTIAL HYPERTENSION 05/05/2013 MAGUIRE DO, ALVERTO K 496 CHRONIC AIRWAY OBSTRUCTION NOT ELSEWHERE CLASSIFIED 05/05/2013 MAGUIRE DO, ALVERTO K 599.0 URINARY TRACT INFECTION SITE NOT SPECIFIED 05/05/2013 MAGUIRE DO, ALVERTO K 627.9 UNSPECIFIED MENOPAUSAL AND POSTMENOPAUSAL DISORDER 05/05/2013 MAGUIRE DO, ALVERTO K 723.1 CERVICALGIA 05/05/2013 MADL PICTURE ENGRAVER, COREY L 250.60 DIABETES WITH NEUROLOGICAL MANIFESTATIONS TYPE II OR UNSPECIFIED TYPE NOT STATED UNCONTROLLED 05/05/2013 MADL PICTURE ENGRAVER, COREY L 272.4 OTHER AND UNSPECIFIED HYPERLIPIDEMIA 05/05/2013 MADL PICTURE ENGRAVER, COREY L 401.1 BENIGN ESSENTIAL HYPERTENSION 05/05/2013 MADL PICTURE ENGRAVER, COREY L 496 CHRONIC AIRWAY OBSTRUCTION NOT ELSEWHERE CLASSIFIED 05/05/2013 MADL PICTURE ENGRAVER, COREY L 599.0 URINARY TRACT INFECTION SITE NOT SPECIFIED 05/05/2013 MADL PICTURE ENGRAVER, COREY L 627.9 UNSPECIFIED MENOPAUSAL AND POSTMENOPAUSAL DISORDER 05/05/2013 MADL PICTURE ENGRAVER, COREY L 723.1 CERVICALGIA 05/05/2013 MAGUIRE DO, ALVERTO K 250.60 DIABETES WITH NEUROLOGICAL MANIFESTATIONS TYPE II OR UNSPECIFIED TYPE NOT STATED UNCONTROLLED 05/05/2013 MAGUIRE DO, ALVERTO K 272.4 OTHER AND UNSPECIFIED HYPERLIPIDEMIA 05/05/2013 MAGUIRE DO, ALVERTO K 401.1 BENIGN ESSENTIAL HYPERTENSION 05/05/2013 MAGUIRE DO, ALVERTO K 496 CHRONIC AIRWAY OBSTRUCTION NOT ELSEWHERE CLASSIFIED 05/05/2013 MAGUIRE DO, ALVERTO K 599.0 URINARY TRACT INFECTION SITE NOT SPECIFIED 05/05/2013 MAGUIRE DO, ALVERTO K 627.9 UNSPECIFIED MENOPAUSAL AND POSTMENOPAUSAL DISORDER 05/05/2013 MAGUIRE PAUL RAMSEYA K 723.1 CERVICALGIA 05/05/2013 GILMER PICTURE ENGRAVER, BRYSON A 250.60 DIABETES WITH NEUROLOGICAL MANIFESTATIONS TYPE II OR UNSPECIFIED TYPE NOT STATED UNCONTROLLED 05/05/2013 GILMER PICTURE ENGRAVER, BRYSON A 272.4 OTHER AND UNSPECIFIED HYPERLIPIDEMIA 05/05/2013 GILMER PICTURE ENGRAVER, BRYSON A 401.1 BENIGN ESSENTIAL HYPERTENSION 05/05/2013 GILMER PICTURE ENGRAVER, BRYSON A 496 CHRONIC AIRWAY OBSTRUCTION NOT ELSEWHERE CLASSIFIED 05/05/2013 GILMER PICTURE ENGRAVER, BRYSON A 599.0 URINARY TRACT INFECTION SITE NOT SPECIFIED 05/05/2013 GILMER PICTURE ENGRAVER, BRYSON A 627.9 UNSPECIFIED MENOPAUSAL AND POSTMENOPAUSAL DISORDER 05/05/2013 GILMER PICTURE ENGRAVER, BRYSON A 723.1 CERVICALGIA 05/05/2013 OKSANA JUAREZ APRNWNYA L 250.60 DIABETES WITH NEUROLOGICAL MANIFESTATIONS TYPE II OR UNSPECIFIED TYPE NOT STATED UNCONTROLLED 05/05/2013 MILYL PICTURE ENGRAVER, COREY L 272.4 OTHER AND UNSPECIFIED HYPERLIPIDEMIA 05/05/2013 MILYL PICTURE ENGRAVER COREY L 401.1 BENIGN ESSENTIAL HYPERTENSION 05/05/2013 MILYL PICTURE ENGRAVER, COREY L 496 CHRONIC AIRWAY OBSTRUCTION NOT ELSEWHERE CLASSIFIED 05/05/2013 MILYL MATTHEW COREY L 599.0 URINARY TRACT INFECTION SITE NOT SPECIFIED 05/05/2013 MILYL PICTURE ENGRAVER, COREY L 627.9 UNSPECIFIED MENOPAUSAL AND POSTMENOPAUSAL DISORDER 05/05/2013 LARRY VILLAChris COREY L 723.1 CERVICALGIA 05/05/2013 GILMER PICTURE ENGRAVER, BRYSON A 250.60 DIABETES WITH NEUROLOGICAL MANIFESTATIONS TYPE II OR UNSPECIFIED TYPE NOT STATED UNCONTROLLED 05/05/2013 GILMER PICTURE ENGRAVER, BRYSON A 272.4 OTHER AND UNSPECIFIED HYPERLIPIDEMIA 05/05/2013 GILMER PICTURE ENGRAVER, BRYSON A 401.1 BENIGN ESSENTIAL HYPERTENSION 05/05/2013 GILMER PICTURE ENGRAVER, BRYSON A 496 CHRONIC AIRWAY OBSTRUCTION NOT ELSEWHERE CLASSIFIED 05/05/2013 GILMER PICTURE ENGRAVER, BRYSON A 599.0 URINARY TRACT INFECTION SITE NOT SPECIFIED 05/05/2013 GILMER PICTURE ENGRAVER, BRYSON A 627.9 UNSPECIFIED MENOPAUSAL AND POSTMENOPAUSAL DISORDER 05/05/2013 GILMER VILLAN, BRYSON A 723.1 CERVICALGIA 05/05/2013 TRENT PICTURE ENGRAVER, EDUARDO R 250.60 DIABETES WITH NEUROLOGICAL MANIFESTATIONS TYPE II OR UNSPECIFIED TYPE NOT STATED UNCONTROLLED 05/05/2013 TRENT PICTURE ENGRAVER, EDUARDO R 272.4 OTHER AND UNSPECIFIED HYPERLIPIDEMIA 05/05/2013 TRENT PICTURE ENGRAVER, EDUARDO R 401.1 BENIGN ESSENTIAL HYPERTENSION 05/05/2013 TWAN PICTURE ENGRAVER EDUARDO R 496 CHRONIC AIRWAY OBSTRUCTION NOT ELSEWHERE CLASSIFIED 05/05/2013 TRENT PICTURE ENGRAVER, EDUARDO R 599.0 URINARY TRACT INFECTION SITE NOT SPECIFIED 05/05/2013 TRENT PICTURE ENGRAVER, EDUARDO R 627.9 UNSPECIFIED MENOPAUSAL AND POSTMENOPAUSAL DISORDER 05/05/2013 TWAN PICTURE ENGRAVER, EDUARDO R 723.1 CERVICALGIA 05/05/2013 MADL PICTURE ENGRAVER, COREY L 250.60 DIABETES WITH NEUROLOGICAL MANIFESTATIONS TYPE II OR UNSPECIFIED TYPE NOT STATED UNCONTROLLED 05/05/2013 MADL PICTURE ENGRAVER, COREY L 272.4 OTHER AND UNSPECIFIED HYPERLIPIDEMIA 05/05/2013 MADL PICTURE ENGRAVER, COREY L 401.1 BENIGN ESSENTIAL HYPERTENSION 05/05/2013 MADL PICTURE ENGRAVER, COREY L 496 CHRONIC AIRWAY OBSTRUCTION NOT ELSEWHERE CLASSIFIED 05/05/2013 MADL PICTURE ENGRAVER, COREY L 599.0 URINARY TRACT INFECTION SITE NOT SPECIFIED 05/05/2013 MADL PICTURE ENGRAVER, COREY L 627.9 UNSPECIFIED MENOPAUSAL AND POSTMENOPAUSAL DISORDER 05/05/2013 MADL PICTURE ENGRAVER, COREY L 723.1 CERVICALGIA 05/05/2013 MADL PICTURE ENGRAVER, COREY L 250.60 DIABETES WITH NEUROLOGICAL MANIFESTATIONS TYPE II OR UNSPECIFIED TYPE NOT STATED UNCONTROLLED 05/05/2013 MADL PICTURE ENGRAVER, COREY L 272.4 OTHER AND UNSPECIFIED HYPERLIPIDEMIA 05/05/2013 MADL PICTURE ENGRAVER, COREY L 401.1 BENIGN ESSENTIAL HYPERTENSION 05/05/2013 MADL PICTURE ENGRAVER, COREY L 496 CHRONIC AIRWAY OBSTRUCTION NOT ELSEWHERE CLASSIFIED 05/05/2013 MADL PICTURE ENGRAVER, COREY L 599.0 URINARY TRACT INFECTION SITE NOT SPECIFIED 05/05/2013 MADL PICTURE ENGRAVER, COREY L 627.9 UNSPECIFIED MENOPAUSAL AND POSTMENOPAUSAL DISORDER 05/05/2013 MADL PICTURE ENGRAVER, COREY L 723.1 CERVICALGIA 05/05/2013 MADL PICTURE ENGRAVER, COREY L 250.60 DIABETES WITH NEUROLOGICAL MANIFESTATIONS TYPE II OR UNSPECIFIED TYPE NOT STATED UNCONTROLLED 05/05/2013 MADL PICTURE ENGRAVER, COREY L 272.4 OTHER AND UNSPECIFIED HYPERLIPIDEMIA 05/05/2013 MADL PICTURE ENGRAVER, COREY L 401.1 BENIGN ESSENTIAL HYPERTENSION 05/05/2013 MADL PICTURE ENGRAVER, COREY L 496 CHRONIC AIRWAY OBSTRUCTION NOT ELSEWHERE CLASSIFIED 05/05/2013 MADL PICTURE ENGRAVER, COREY L 599.0 URINARY TRACT INFECTION SITE NOT SPECIFIED 05/05/2013 MADL PICTURE ENGRAVER, COREY L 627.9 UNSPECIFIED MENOPAUSAL AND POSTMENOPAUSAL DISORDER 05/05/2013 MADL PICTURE ENGRAVER, COREY L 723.1 CERVICALGIA 05/05/2013 SABIHA PICTURE ENGRAVER, ANGIE S 250.60 DIABETES WITH NEUROLOGICAL MANIFESTATIONS TYPE II OR UNSPECIFIED TYPE NOT STATED UNCONTROLLED 05/05/2013 SABIHA PICTURE ENGRAVER, ANGIE S 272.4 OTHER AND UNSPECIFIED HYPERLIPIDEMIA 05/05/2013 SABIHA PICTURE ENGRAVER, ANGIE S 401.1 BENIGN ESSENTIAL HYPERTENSION 05/05/2013 SABIHA PICTURE ENGRAVER, ANGIE S 496 CHRONIC AIRWAY OBSTRUCTION NOT ELSEWHERE CLASSIFIED 05/05/2013 SABIHA PICTURE ENGRAVER, ANGIE S 599.0 URINARY TRACT INFECTION SITE NOT SPECIFIED 05/05/2013 SABIHA PICTURE ENGRAVER, ANGIE S 627.9 UNSPECIFIED MENOPAUSAL AND POSTMENOPAUSAL DISORDER 05/05/2013 SABIHA PICTURE ENGRAVER, ANGIE S 723.1 CERVICALGIA 05/05/2013 SABIHA PICTURE ENGRAVER, ANGIE S 250.60 DIABETES WITH NEUROLOGICAL MANIFESTATIONS TYPE II OR UNSPECIFIED TYPE NOT STATED UNCONTROLLED 05/05/2013 SABIHA PICTURE ENGRAVER, ANGIE S 272.4 OTHER AND UNSPECIFIED HYPERLIPIDEMIA 05/05/2013 SABIHA PICTURE ENGRAVER, ANGIE S 401.1 BENIGN ESSENTIAL HYPERTENSION 05/05/2013 SABIHA PICTURE ENGRAVER, ANGIE S 496 CHRONIC AIRWAY OBSTRUCTION NOT ELSEWHERE CLASSIFIED 05/05/2013 SABIHA PICTURE ENGRAVER, ANGIE S 599.0 URINARY TRACT INFECTION SITE NOT SPECIFIED 05/05/2013 SABIHA PICTURE ENGRAVER, ANGIE S 627.9 UNSPECIFIED MENOPAUSAL AND POSTMENOPAUSAL DISORDER 05/05/2013 SABIHAAGUSTINA VILLAN, ANGIE S 723.1 CERVICALGIA 05/05/2013 MADL PICTURE ENGRAVER, COREY L 250.60 DIABETES WITH NEUROLOGICAL MANIFESTATIONS TYPE II OR UNSPECIFIED TYPE NOT STATED UNCONTROLLED 05/05/2013 MADL PICTURE ENGRAVER, COREY L 272.4 OTHER AND UNSPECIFIED HYPERLIPIDEMIA 05/05/2013 MADL PICTURE ENGRAVER, COREY L 401.1 BENIGN ESSENTIAL HYPERTENSION 05/05/2013 MADL PICTURE ENGRAVER, COREY L 496 CHRONIC AIRWAY OBSTRUCTION NOT ELSEWHERE CLASSIFIED 05/05/2013 MADL PICTURE ENGRAVER, COREY L 599.0 URINARY TRACT INFECTION SITE NOT SPECIFIED 05/05/2013 MADL PICTURE ENGRAVER, COREY L 627.9 UNSPECIFIED MENOPAUSAL AND POSTMENOPAUSAL DISORDER 05/05/2013 MADL PICTURE ENGRAVER, COREY L 723.1 CERVICALGIA 05/05/2013 MADL PICTURE ENGRAVER, COREY L 250.60 DIABETES WITH NEUROLOGICAL MANIFESTATIONS TYPE II OR UNSPECIFIED TYPE NOT STATED UNCONTROLLED 05/05/2013 MADL PICTURE ENGRAVER, COREY L 272.4 OTHER AND UNSPECIFIED HYPERLIPIDEMIA 05/05/2013 MADL PICTURE ENGRAVER, COREY L 401.1 BENIGN ESSENTIAL HYPERTENSION 05/05/2013 MADL PICTURE ENGRAVER, COREY L 496 CHRONIC AIRWAY OBSTRUCTION NOT ELSEWHERE CLASSIFIED 05/05/2013 MADL PICTURE ENGRAVER, COREY L 599.0 URINARY TRACT INFECTION SITE NOT SPECIFIED 05/05/2013 MADL PICTURE ENGRAVER, COREY L 627.9 UNSPECIFIED MENOPAUSAL AND POSTMENOPAUSAL DISORDER 05/05/2013 MADL PICTURE ENGRAVER, COREY L 723.1 CERVICALGIA 05/05/2013 MAGUIRE DO, ALVERTO K 250.60 DIABETES WITH NEUROLOGICAL MANIFESTATIONS TYPE II OR UNSPECIFIED TYPE NOT STATED UNCONTROLLED 05/05/2013 MAGUIRE DO, ALVERTO K 272.4 OTHER AND UNSPECIFIED HYPERLIPIDEMIA 05/05/2013 MAGUIRE DO, ALVERTO K 401.1 BENIGN ESSENTIAL HYPERTENSION 05/05/2013 MAGUIRE DO, ALVERTO K 496 CHRONIC AIRWAY OBSTRUCTION NOT ELSEWHERE CLASSIFIED 05/05/2013 MAGUIRE DO, ALVERTO K 599.0 URINARY TRACT INFECTION SITE NOT SPECIFIED 05/05/2013 MAGUIRE DO, ALVERTO K 627.9 UNSPECIFIED MENOPAUSAL AND POSTMENOPAUSAL DISORDER 05/05/2013 MAGUIRE DO, ALVERTO K 723.1 CERVICALGIA 05/05/2013 MADL PICTURE ENGRAVER, COREY L 250.60 DIABETES WITH NEUROLOGICAL MANIFESTATIONS TYPE II OR UNSPECIFIED TYPE NOT STATED UNCONTROLLED 05/05/2013 MADL PICTURE ENGRAVER, COREY L 272.4 OTHER AND UNSPECIFIED HYPERLIPIDEMIA 05/05/2013 MADL PICTURE ENGRAVER, COREY L 401.1 BENIGN ESSENTIAL HYPERTENSION 05/05/2013 MADL PICTURE ENGRAVER, COREY L 496 CHRONIC AIRWAY OBSTRUCTION NOT ELSEWHERE CLASSIFIED 05/05/2013 MADL PICTURE ENGRAVER, COREY L 599.0 URINARY TRACT INFECTION SITE NOT SPECIFIED 05/05/2013 MADL PICTURE ENGRAVER, COREY L 627.9 UNSPECIFIED MENOPAUSAL AND POSTMENOPAUSAL DISORDER 05/05/2013 MADL PICTURE ENGRAVER, COREY L 723.1 CERVICALGIA 05/05/2013 MADL PICTURE ENGRAVER, COREY L 250.60 DIABETES WITH NEUROLOGICAL MANIFESTATIONS TYPE II OR UNSPECIFIED TYPE NOT STATED UNCONTROLLED 05/05/2013 MADL PICTURE ENGRAVER, COREY L 272.4 OTHER AND UNSPECIFIED HYPERLIPIDEMIA 05/05/2013 MADL PICTURE ENGRAVER, COREY L 401.1 BENIGN ESSENTIAL HYPERTENSION 05/05/2013 MADL PICTURE ENGRAVER, COREY L 496 CHRONIC AIRWAY OBSTRUCTION NOT ELSEWHERE CLASSIFIED 05/05/2013 MADL PICTURE ENGRAVER, COREY L 599.0 URINARY TRACT INFECTION SITE NOT SPECIFIED 05/05/2013 MADL PICTURE ENGRAVER, COREY L 627.9 UNSPECIFIED MENOPAUSAL AND POSTMENOPAUSAL DISORDER 05/05/2013 MADL PICTURE ENGRAVER, COREY L 723.1 CERVICALGIA 05/05/2013 MADL PICTURE ENGRAVER, COREY L 250.60 DIABETES WITH NEUROLOGICAL MANIFESTATIONS TYPE II OR UNSPECIFIED TYPE NOT STATED UNCONTROLLED 05/05/2013 MADL PICTURE ENGRAVER, COREY L 272.4 OTHER AND UNSPECIFIED HYPERLIPIDEMIA 05/05/2013 MADL PICTURE ENGRAVER, COREY L 401.1 BENIGN ESSENTIAL HYPERTENSION 05/05/2013 MADL PICTURE ENGRAVER, COREY L 496 CHRONIC AIRWAY OBSTRUCTION NOT ELSEWHERE CLASSIFIED 05/05/2013 MADL PICTURE ENGRAVER, COREY L 599.0 URINARY TRACT INFECTION SITE NOT SPECIFIED 05/05/2013 MADL PICTURE ENGRAVER, COREY L 627.9 UNSPECIFIED MENOPAUSAL AND POSTMENOPAUSAL DISORDER 05/05/2013 MILYL LEONORA CASTROA L 723.1 CERVICALGIA 05/12/2013 ZELALEM SUMMERS DO Ot 327.23 OBSTRUCTIVE SLEEP APNEA (ADULT) (PEDIATR 05/12/2013 ZELALEM SUMMERS DO Ot 785.0 TACHYCARDIA NOS 06/03/2013 ALVERTO MAGUIRE DO 491.21 OBSTRUCTIVE CHRONIC BRONCHITIS WITH (ACUTE) EXACERBATION 06/03/2013 ALVERTO MAGUIRE DO K 491.21 OBSTRUCTIVE CHRONIC BRONCHITIS WITH (ACUTE) EXACERBATION 06/03/2013 PAUL MAGUIRE DOA K 491.21 OBSTRUCTIVE CHRONIC BRONCHITIS WITH (ACUTE) EXACERBATION 06/03/2013 PAUL MAGUIRE DOA K 491.21 OBSTRUCTIVE CHRONIC BRONCHITIS WITH (ACUTE) EXACERBATION 06/03/2013 ALVERTO MAGUIRE DO K 491.21 OBSTRUCTIVE CHRONIC BRONCHITIS WITH (ACUTE) EXACERBATION 06/03/2013 COREY JUAREZ APRN L 491.21 OBSTRUCTIVE CHRONIC BRONCHITIS WITH (ACUTE ) EXACERBATION 06/03/2013 ALVERTO MAGUIRE DO K 491.21 OBSTRUCTIVE CHRONIC BRONCHITIS WITH (ACUTE) EXACERBATION 06/03/2013 ALVERTO MAGUIRE DO K 491.21 OBSTRUCTIVE CHRONIC BRONCHITIS WITH (ACUTE) EXACERBATION 06/03/2013 COREY JUAREZ APRN L 491.21 OBSTRUCTIVE CHRONIC BRONCHITIS WITH (ACUTE ) EXACERBATION 06/03/2013 COREY JUAREZ APRN L 491.21 OBSTRUCTIVE CHRONIC BRONCHITIS WITH (ACUTE ) EXACERBATION 06/03/2013 PAUL MAGUIRE DOA K 491.21 OBSTRUCTIVE CHRONIC BRONCHITIS WITH (ACUTE) EXACERBATION 06/03/2013 ALVERTO MAGUIRE DO K 491.21 OBSTRUCTIVE CHRONIC BRONCHITIS WITH (ACUTE) EXACERBATION 06/03/2013 LEONORA JUAREZ APRNA L 491.21 OBSTRUCTIVE CHRONIC BRONCHITIS WITH (ACUTE ) EXACERBATION 06/03/2013 PAUL MAGUIRE DOA K 491.21 OBSTRUCTIVE CHRONIC BRONCHITIS WITH (ACUTE) EXACERBATION 06/03/2013 LEONORA JUAREZ APRNA L 491.21 OBSTRUCTIVE CHRONIC BRONCHITIS WITH (ACUTE ) EXACERBATION 06/03/2013 LARRY PICTURE ENGRAVERMEGAN PerezNYA L 491.21 OBSTRUCTIVE CHRONIC BRONCHITIS WITH (ACUTE ) EXACERBATION 06/03/2013 PAUL MAGUIRE DOA K 491.21 OBSTRUCTIVE CHRONIC BRONCHITIS WITH (ACUTE) EXACERBATION 06/03/2013 PAUL MAGUIRE DOA K 491.21 OBSTRUCTIVE CHRONIC BRONCHITIS WITH (ACUTE) EXACERBATION 06/03/2013 MADL PICTURE ENGRAVER, COREY L 491.21 OBSTRUCTIVE CHRONIC BRONCHITIS WITH (ACUTE ) EXACERBATION 06/03/2013 ALVERTO MAGUIRE DO 491.21 OBSTRUCTIVE CHRONIC BRONCHITIS WITH (ACUTE) EXACERBATION 06/03/2013 GILMER PICTURE ENGRAVER, BRYSON A 491.21 OBSTRUCTIVE CHRONIC BRONCHITIS WITH ( ACUTE) EXACERBATION 06/03/2013 MADL PICTURE ENGRAVER, COREY L 491.21 OBSTRUCTIVE CHRONIC BRONCHITIS WITH (ACUTE ) EXACERBATION 06/03/2013 GILMER PICTURE ENGRAVER, BRYSON A 491.21 OBSTRUCTIVE CHRONIC BRONCHITIS WITH ( ACUTE) EXACERBATION 06/03/2013 TRENT PICTURE ENGRAVER, EDUARDO R 491.21 OBSTRUCTIVE CHRONIC BRONCHITIS WITH (ACUTE) EXACERBATION 06/03/2013 MADL PICTURE ENGRAVER, COREY L 491.21 OBSTRUCTIVE CHRONIC BRONCHITIS WITH (ACUTE ) EXACERBATION 06/03/2013 MADL PICTURE ENGRAVER, COREY L 491.21 OBSTRUCTIVE CHRONIC BRONCHITIS WITH (ACUTE ) EXACERBATION 06/03/2013 MADL PICTURE ENGRAVER, COREY L 491.21 OBSTRUCTIVE CHRONIC BRONCHITIS WITH (ACUTE ) EXACERBATION 06/03/2013 SABIHA PICTURE ENGRAVER, ANGIE S 491.21 OBSTRUCTIVE CHRONIC BRONCHITIS WITH ( ACUTE) EXACERBATION 06/03/2013 SABIHA PICTURE ENGRAVER, ANGIE S 491.21 OBSTRUCTIVE CHRONIC BRONCHITIS WITH ( ACUTE) EXACERBATION 06/03/2013 MADL PICTURE ENGRAVER, COREY L 491.21 OBSTRUCTIVE CHRONIC BRONCHITIS WITH (ACUTE ) EXACERBATION 06/03/2013 MADL PICTURE ENGRAVER, COREY L 491.21 OBSTRUCTIVE CHRONIC BRONCHITIS WITH (ACUTE ) EXACERBATION 06/03/2013 ALVERTO MAGUIRE DO 491.21 OBSTRUCTIVE CHRONIC BRONCHITIS WITH (ACUTE) EXACERBATION 06/03/2013 MADL PICTURE ENGRAVER, COREY L 491.21 OBSTRUCTIVE CHRONIC BRONCHITIS WITH (ACUTE ) EXACERBATION 06/03/2013 MADL PICTURE ENGRAVER, COREY L 491.21 OBSTRUCTIVE CHRONIC BRONCHITIS WITH (ACUTE ) EXACERBATION 06/03/2013 MADL PICTURE ENGRAVER, COREY L 491.21 OBSTRUCTIVE CHRONIC BRONCHITIS WITH (ACUTE ) EXACERBATION 06/22/2013 ALVERTO MAGUIRE DO 518.82 OTHER PULMONARY INSUFFICIENCY NOT ELSEWHERE CLASSIFIED 06/22/2013 ALVERTO MAGUIRE DO 518.82 OTHER PULMONARY INSUFFICIENCY NOT ELSEWHERE CLASSIFIED 06/22/2013 MAGUIRE DO, ALVERTO K 518.82 OTHER PULMONARY INSUFFICIENCY NOT ELSEWHERE CLASSIFIED 06/22/2013 MAGUIRE DO, ALVERTO K 518.82 OTHER PULMONARY INSUFFICIENCY NOT ELSEWHERE CLASSIFIED 06/22/2013 MADL PICTURE ENGRAVER, COREY L 518.82 OTHER PULMONARY INSUFFICIENCY NOT ELSEWHERE CLASSIFIED 06/22/2013 MAGUIRE DO, ALVERTO K 518.82 OTHER PULMONARY INSUFFICIENCY NOT ELSEWHERE CLASSIFIED 06/22/2013 MAGUIRE DO, ALVERTO K 518.82 OTHER PULMONARY INSUFFICIENCY NOT ELSEWHERE CLASSIFIED 06/22/2013 MADL PICTURE ENGRAVER, COREY L 518.82 OTHER PULMONARY INSUFFICIENCY NOT ELSEWHERE CLASSIFIED 06/22/2013 MADL PICTURE ENGRAVER, COREY L 518.82 OTHER PULMONARY INSUFFICIENCY NOT ELSEWHERE CLASSIFIED 06/22/2013 MAGUIRE DO, ALVERTO K 518.82 OTHER PULMONARY INSUFFICIENCY NOT ELSEWHERE CLASSIFIED 06/22/2013 MAGUIRE DO, ALVERTO K 518.82 OTHER PULMONARY INSUFFICIENCY NOT ELSEWHERE CLASSIFIED 06/22/2013 MADL PICTURE ENGRAVER, COREY L 518.82 OTHER PULMONARY INSUFFICIENCY NOT ELSEWHERE CLASSIFIED 06/22/2013 MAGUIRE DO, ALVERTO K 518.82 OTHER PULMONARY INSUFFICIENCY NOT ELSEWHERE CLASSIFIED 06/22/2013 MADL PICTURE ENGRAVER, COREY L 518.82 OTHER PULMONARY INSUFFICIENCY NOT ELSEWHERE CLASSIFIED 06/22/2013 MADL PICTURE ENGRAVER, COREY L 518.82 OTHER PULMONARY INSUFFICIENCY NOT ELSEWHERE CLASSIFIED 06/22/2013 MAGUIRE DO, ALVERTO K 518.82 OTHER PULMONARY INSUFFICIENCY NOT ELSEWHERE CLASSIFIED 06/22/2013 MAGUIRE DO, ALVERTO K 518.82 OTHER PULMONARY INSUFFICIENCY NOT ELSEWHERE CLASSIFIED 06/22/2013 MADL PICTURE ENGRAVER, COREY L 518.82 OTHER PULMONARY INSUFFICIENCY NOT ELSEWHERE CLASSIFIED 06/22/2013 MAGUIRE DO, ALVERTO K 518.82 OTHER PULMONARY INSUFFICIENCY NOT ELSEWHERE CLASSIFIED 06/22/2013 GILMER PICTURE ENGRAVER, BRYSON A 518.82 OTHER PULMONARY INSUFFICIENCY NOT ELSEWHERE CLASSIFIED 06/22/2013 MADL PICTURE ENGRAVER, COREY L 518.82 OTHER PULMONARY INSUFFICIENCY NOT ELSEWHERE CLASSIFIED 06/22/2013 GILMER PICTURE ENGRAVER, BRYSON A 518.82 OTHER PULMONARY INSUFFICIENCY NOT ELSEWHERE CLASSIFIED 06/22/2013 TWAN PICTURE ENGRAVER, EDUARDO R 518.82 OTHER PULMONARY INSUFFICIENCY NOT ELSEWHERE CLASSIFIED 06/22/2013 MADL PICTURE ENGRAVER, COREY L 518.82 OTHER PULMONARY INSUFFICIENCY NOT ELSEWHERE CLASSIFIED 06/22/2013 MADL PICTURE ENGRAVER, COREY L 518.82 OTHER PULMONARY INSUFFICIENCY NOT ELSEWHERE CLASSIFIED 06/22/2013 MADL PICTURE ENGRAVER, COREY L 518.82 OTHER PULMONARY INSUFFICIENCY NOT ELSEWHERE CLASSIFIED 06/22/2013 SABIHA PICTURE ENGRAVER, ANGIE S 518.82 OTHER PULMONARY INSUFFICIENCY NOT ELSEWHERE CLASSIFIED 06/22/2013 SABIHA PICTURE ENGRAVER, ANGIE S 518.82 OTHER PULMONARY INSUFFICIENCY NOT ELSEWHERE CLASSIFIED 06/22/2013 MADL PICTURE ENGRAVER, COREY L 518.82 OTHER PULMONARY INSUFFICIENCY NOT ELSEWHERE CLASSIFIED 06/22/2013 MADL PICTURE ENGRAVER, COREY L 518.82 OTHER PULMONARY INSUFFICIENCY NOT ELSEWHERE CLASSIFIED 06/22/2013 ALVERTO MAGUIRE DO K 518.82 OTHER PULMONARY INSUFFICIENCY NOT ELSEWHERE CLASSIFIED 06/22/2013 MADL PICTURE ENGRAVER, COREY L 518.82 OTHER PULMONARY INSUFFICIENCY NOT ELSEWHERE CLASSIFIED 06/22/2013 MADL PICTURE ENGRAVER, COREY L 518.82 OTHER PULMONARY INSUFFICIENCY NOT ELSEWHERE CLASSIFIED 06/22/2013 MADL PICTURE ENGRAVER, COREY L 518.82 OTHER PULMONARY INSUFFICIENCY NOT ELSEWHERE CLASSIFIED 06/25/2013 CRYSTAL SANTIAGO MD Ot 250.00 DIAB AVELINA WO COMPL, TYPE II OR UNSPEC TY 06/25/2013 CRYSTAL SANTIAGO MD Ot 272.4 HYPERLIPIDEMIA NEC/NOS 06/25/2013 CRYSTAL SANTIAGO MD Ot 276.8 HYPOPOTASSEMIA 06/25/2013 CRYSTAL SANTIAGO MD Ot 278.01 MORBID OBESITY 06/25/2013 CRYSTAL SANTIAGO MD Ot 300.00 ANXIETY STATE NOS 06/25/2013 CRYSTAL SANTIAGO MD Ot 311 DEPRESSIVE DISORDER NEC 06/25/2013 CRYSTAL SANTIAGO MD Ot 327.23 OBSTRUCTIVE SLEEP APNEA (ADULT) (PEDIATR 06/25/2013 CRYSTAL SANTIAGO MD Ot 356.9 IDIO PERIPH NEURPTHY NOS 06/25/2013 CRYSTAL SANTIAGO MD Ot 491.21 OBSTR CHRONIC BRONCHITIS, W (ACUTE) EXAC 06/25/2013 CRYSTAL SANTIAGO MD Ot 493.90 ASTHMA, UNSPECIFIED 06/25/2013 CRYSTAL SANTIAGO MD Ot 518.0 PULMONARY COLLAPSE 06/25/2013 CRYSTAL SANTIAGO MD Ot 518.81 ACUTE RESPIRATORY FAILURE 06/25/2013 CRYSTAL SANTIAGO MD Ot 530.81 ESOPHAGEAL REFLUX 06/25/2013 CRYSTAL SANTIAGO MD Ot 564.1 IRRITABLE BOWEL SYNDROME 06/25/2013 CRYSTAL SANTIAGO MD Ot 722.4 CERVICAL DISC DEGEN 06/25/2013 CRYSTAL SANTIAGO MD Ot 729.1 MYALGIA AND MYOSITIS NOS 06/25/2013 CRYSTAL SANTIAGO MD Ot 787.20 DYSPHAGIA, UNSPECIFIED 06/25/2013 CRYSTAL SANTIAGO MD Ot V12.71 PERSONAL HISTORY OF PEPTIC ULCER DISEASE 06/25/2013 CRYSTAL SANTIAGO MD Ot V15.81 HX OF PAST NONCOMPLIANCE 06/25/2013 CRYSTAL SANTIAGO MD Ot V15.82 HISTORY OF TOBACCO USE 06/25/2013 CRYSTAL SANTIAGO MD Ot V45.4 ARTHRODESIS STATUS 06/25/2013 CRYSTAL SANTIAGO MD Ot V85.35 BODY MASS INDEX 35.0-35.9, ADULT 08/10/2013 MADL PICTURE ENGRAVER, COREY L 785.1 PALPITATIONS 08/10/2013 MADL PICTURE ENGRAVER, COREY L 785.1 PALPITATIONS 08/10/2013 MAGUIRE DO, ALVERTO K 785.1 PALPITATIONS 08/10/2013 MAGUIRE DO, ALVERTO K 785.1 PALPITATIONS 08/10/2013 MADL PICTURE ENGRAVER, COREY L 785.1 PALPITATIONS 08/10/2013 MAGUIRE DO, ALVERTO K 785.1 PALPITATIONS 08/10/2013 MADL PICTURE ENGRAVER, COREY L 785.1 PALPITATIONS 08/10/2013 MADL PICTURE ENGRAVER, COREY L 785.1 PALPITATIONS 08/10/2013 MAGUIRE DO, ALVERTO K 785.1 PALPITATIONS 08/10/2013 MAGUIRE DO, ALVERTO K 785.1 PALPITATIONS 08/10/2013 MADL PICTURE ENGRAVER, COREY L 785.1 PALPITATIONS 08/10/2013 MAGUIRE DO, ALVERTO K 785.1 PALPITATIONS 08/10/2013 GILMER PICTURE ENGRAVER, BRYSON A 785.1 PALPITATIONS 08/10/2013 MADL PICTURE ENGRAVER, COREY L 785.1 PALPITATIONS 08/10/2013 GILMER PICTURE ENGRAVER, BRYSON A 785.1 PALPITATIONS 08/10/2013 TRENT PICTURE ENGRAVER, EDUARDO R 785.1 PALPITATIONS 08/10/2013 MADL PICTURE ENGRAVER, COREY L 785.1 PALPITATIONS 08/10/2013 MADL PICTURE ENGRAVER, COREY L 785.1 PALPITATIONS 08/10/2013 MADL PICTURE ENGRAVER, COREY L 785.1 PALPITATIONS 08/10/2013 SABIHA PICTURE ENGRAVER, ANGIE S 785.1 PALPITATIONS 08/10/2013 SABIHA PICTURE ENGRAVER, ANGIE S 785.1 PALPITATIONS 08/10/2013 MADL PICTURE ENGRAVER, COREY L 785.1 PALPITATIONS 08/10/2013 MADL PICTURE ENGRAVER, COREY L 785.1 PALPITATIONS 08/10/2013 MAGUIRE DO, ALVERTO K 785.1 PALPITATIONS 08/10/2013 MADL PICTURE ENGRAVER, COREY L 785.1 PALPITATIONS 08/10/2013 MADL PICTURE ENGRAVER, COREY L 785.1 PALPITATIONS 08/10/2013 MADL PICTURE ENGRAVER, COREY L 785.1 PALPITATIONS 09/08/2013 MAGUIRE DO, ALVERTO K 401.9 HYPERTENSION, UNSPECIFIED ESSENTIAL 09/08/2013 MAGUIRE DO, ALVERTO K 786.05 SHORTNESS OF BREATH 09/08/2013 MAGUIRE DO, ALVERTO K 786.09 DYSPNEA 09/08/2013 MADL PICTURE ENGRAVER, COREY L 401.9 HYPERTENSION, UNSPECIFIED ESSENTIAL 09/08/2013 MADL PICTURE ENGRAVER, COREY L 786.05 SHORTNESS OF BREATH 09/08/2013 MADL PICTURE ENGRAVER, COREY L 786.09 DYSPNEA 09/08/2013 MAGUIRE DO, ALVERTO K 401.9 HYPERTENSION, UNSPECIFIED ESSENTIAL 09/08/2013 MAGUIRE DO, ALVERTO K 786.05 SHORTNESS OF BREATH 09/08/2013 MAGUIRE DO, ALVERTO K 786.09 DYSPNEA 09/08/2013 MADL PICTURE ENGRAVER, COREY L 401.9 HYPERTENSION, UNSPECIFIED ESSENTIAL 09/08/2013 MADL PICTURE ENGRAVER, COREY L 786.05 SHORTNESS OF BREATH 09/08/2013 MADL PICTURE ENGRAVER, COREY L 786.09 DYSPNEA 09/08/2013 MADL PICTURE ENGRAVER, COREY L 401.9 HYPERTENSION, UNSPECIFIED ESSENTIAL 09/08/2013 MADL PICTURE ENGRAVER, COREY L 786.05 SHORTNESS OF BREATH 09/08/2013 MADL PICTURE ENGRAVER, COREY L 786.09 DYSPNEA 09/08/2013 MAGUIRE DO, ALVERTO K 401.9 HYPERTENSION, UNSPECIFIED ESSENTIAL 09/08/2013 MAGUIRE DO, ALVERTO K 786.05 SHORTNESS OF BREATH 09/08/2013 MAGUIRE DO, ALVERTO K 786.09 DYSPNEA 09/08/2013 MAGUIRE DO, ALVERTO K 401.9 HYPERTENSION, UNSPECIFIED ESSENTIAL 09/08/2013 MAGUIRE DO, ALVERTO K 786.05 SHORTNESS OF BREATH 09/08/2013 MAGUIRE DO, ALVERTO K 786.09 DYSPNEA 09/08/2013 MADL PICTURE ENGRAVER, COREY L 401.9 HYPERTENSION, UNSPECIFIED ESSENTIAL 09/08/2013 MADL PICTURE ENGRAVER, COREY L 786.05 SHORTNESS OF BREATH 09/08/2013 MADL PICTURE ENGRAVER, COREY L 786.09 DYSPNEA 09/08/2013 MAGUIRE DO, ALVERTO K 401.9 HYPERTENSION, UNSPECIFIED ESSENTIAL 09/08/2013 MAGUIRE DO, ALVERTO K 786.05 SHORTNESS OF BREATH 09/08/2013 MAGUIRE DO, ALVERTO K 786.09 DYSPNEA 09/08/2013 GILMER PICTURE ENGRAVER, BRYSON A 401.9 HYPERTENSION, UNSPECIFIED ESSENTIAL 09/08/2013 GILMER PICTURE ENGRAVER, BRYSON A 786.05 SHORTNESS OF BREATH 09/08/2013 GILMER PICTURE ENGRAVER, BRYSON A 786.09 DYSPNEA 09/08/2013 MADL PICTURE ENGRAVER, COREY L 401.9 HYPERTENSION, UNSPECIFIED ESSENTIAL 09/08/2013 MADL PICTURE ENGRAVER, COREY L 786.05 SHORTNESS OF BREATH 09/08/2013 MADL PICTURE ENGRAVER, COREY L 786.09 DYSPNEA 09/08/2013 GILMER PICTURE ENGRAVER, BRYSON A 401.9 HYPERTENSION, UNSPECIFIED ESSENTIAL 09/08/2013 GILMER PICTURE ENGRAVER, BRYSON A 786.05 SHORTNESS OF BREATH 09/08/2013 GILMER PICTURE ENGRAVER, BRYSON A 786.09 DYSPNEA 09/08/2013 EDUARDO TRENT APRN R 401.9 HYPERTENSION, UNSPECIFIED ESSENTIAL 09/08/2013 TWAN PICTURE ENGRAVER, EDUARDO R 786.05 SHORTNESS OF BREATH 09/08/2013 TRENT PICTURE ENGRAVER, EDUARDO R 786.09 DYSPNEA 09/08/2013 MADL PICTURE ENGRAVER, COREY L 401.9 HYPERTENSION, UNSPECIFIED ESSENTIAL 09/08/2013 MADL PICTURE ENGRAVER, COREY L 786.05 SHORTNESS OF BREATH 09/08/2013 MADL PICTURE ENGRAVER, COREY L 786.09 DYSPNEA 09/08/2013 MADL PICTURE ENGRAVER, COREY L 401.9 HYPERTENSION, UNSPECIFIED ESSENTIAL 09/08/2013 MADL PICTURE ENGRAVER, COREY L 786.05 SHORTNESS OF BREATH 09/08/2013 MADL PICTURE ENGRAVER, COREY L 786.09 DYSPNEA 09/08/2013 MADL PICTURE ENGRAVER, COREY L 401.9 HYPERTENSION, UNSPECIFIED ESSENTIAL 09/08/2013 MADL PICTURE ENGRAVER, COREY L 786.05 SHORTNESS OF BREATH 09/08/2013 MADL PICTURE ENGRAVER, COREY L 786.09 DYSPNEA 09/08/2013 SABIHA PICTURE ENGRAVER, ANGIE S 401.9 HYPERTENSION, UNSPECIFIED ESSENTIAL 09/08/2013 SABIHA PICTURE ENGRAVER, ANGIE S 786.05 SHORTNESS OF BREATH 09/08/2013 SABIHA PICTURE ENGRAVER, ANGIE S 786.09 DYSPNEA 09/08/2013 SABIHA PICTURE ENGRAVER, ANGIE S 401.9 HYPERTENSION, UNSPECIFIED ESSENTIAL 09/08/2013 SABIHA PICTURE ENGRAVER, ANGIE S 786.05 SHORTNESS OF BREATH 09/08/2013 SABIHA PICTURE ENGRAVER, ANGIE S 786.09 DYSPNEA 09/08/2013 MADL PICTURE ENGRAVER, COREY L 401.9 HYPERTENSION, UNSPECIFIED ESSENTIAL 09/08/2013 MADL PICTURE ENGRAVER, COREY L 786.05 SHORTNESS OF BREATH 09/08/2013 MADL PICTURE ENGRAVER, COREY L 786.09 DYSPNEA 09/08/2013 MADL PICTURE ENGRAVER, COREY L 401.9 HYPERTENSION, UNSPECIFIED ESSENTIAL 09/08/2013 MADL PICTURE ENGRAVER, COREY L 786.05 SHORTNESS OF BREATH 09/08/2013 MADL PICTURE ENGRAVER, COREY L 786.09 DYSPNEA 09/08/2013 MAGUIRE DO, ALVERTO K 401.9 HYPERTENSION, UNSPECIFIED ESSENTIAL 09/08/2013 MAGUIRE DO ALVERTO K 786.05 SHORTNESS OF BREATH 09/08/2013 MAGUIRE DO, ALVERTO K 786.09 DYSPNEA 09/08/2013 MADL PICTURE ENGRAVER, COREY L 401.9 HYPERTENSION, UNSPECIFIED ESSENTIAL 09/08/2013 MADL PICTURE ENGRAVER, COREY L 786.05 SHORTNESS OF BREATH 09/08/2013 MADL PICTURE ENGRAVER, COREY L 786.09 DYSPNEA 09/08/2013 MADL PICTURE ENGRAVER, COREY L 401.9 HYPERTENSION, UNSPECIFIED ESSENTIAL 09/08/2013 MADL PICTURE ENGRAVER, COREY L 786.05 SHORTNESS OF BREATH 09/08/2013 MADL PICTURE ENGRAVER, COREY L 786.09 DYSPNEA 09/08/2013 MADL PICTURE ENGRAVER, COREY L 401.9 HYPERTENSION, UNSPECIFIED ESSENTIAL 09/08/2013 MADL PICTURE ENGRAVER, COREY L 786.05 SHORTNESS OF BREATH 09/08/2013 MADL PICTURE ENGRAVER, COREY L 786.09 DYSPNEA 11/10/2013 MADL PICTURE ENGRAVER, COREY L 250.90 DIABETES TYPE 2 W/ COMPLICATIONS (UNSPEC) 11/10/2013 MADL PICTURE ENGRAVER, COREY L 786.50 CHEST PAIN 11/10/2013 ANDREZ RAMSEY, ALVERTO K 250.90 DIABETES TYPE 2 W/ COMPLICATIONS (UNSPEC) 11/10/2013 ANDREZ RAMSEY, ALVERTO K 786.50 CHEST PAIN 11/10/2013 GILMER PICTURE ENGRAVER, BRYSON A 250.90 DIABETES TYPE 2 W/ COMPLICATIONS (UNSPEC ) 11/10/2013 GILMER PICTURE ENGRAVER, BRYSON A 786.50 CHEST PAIN 11/10/2013 MADL PICTURE ENGRAVER, COREY L 250.90 DIABETES TYPE 2 W/ COMPLICATIONS (UNSPEC) 11/10/2013 MADL PICTURE ENGRAVER, COREY L 786.50 CHEST PAIN 11/10/2013 GILMER PICTURE ENGRAVER, BRYSON A 250.90 DIABETES TYPE 2 W/ COMPLICATIONS (UNSPEC ) 11/10/2013 GILMER PICTURE ENGRAVER, BRYSON A 786.50 CHEST PAIN 11/10/2013 CHIKI TRENT APRNRICIA R 250.90 DIABETES TYPE 2 W/ COMPLICATIONS ( UNSPEC) 11/10/2013 SHOLA TRENT APRNIA R 786.50 CHEST PAIN 11/10/2013 MADL PICTURE ENGRAVER, COREY L 250.90 DIABETES TYPE 2 W/ COMPLICATIONS (UNSPEC) 11/10/2013 MADL PICTURE ENGRAVER, COREY L 786.50 CHEST PAIN 11/10/2013 MADL PICTURE ENGRAVER, COREY L 250.90 DIABETES TYPE 2 W/ COMPLICATIONS (UNSPEC) 11/10/2013 MADL PICTURE ENGRAVER, COREY L 786.50 CHEST PAIN 11/10/2013 MADL PICTURE ENGRAVER, COREY L 250.90 DIABETES TYPE 2 W/ COMPLICATIONS (UNSPEC) 11/10/2013 MADL PICTURE ENGRAVER, COREY L 786.50 CHEST PAIN 11/10/2013 SABIHA PICTURE ENGRAVER, ANGIE S 250.90 DIABETES TYPE 2 W/ COMPLICATIONS ( UNSPEC) 11/10/2013 SABIHA PICTURE ENGRAVER, ANGIE S 786.50 CHEST PAIN 11/10/2013 SABIHA PICTURE ENGRAVER, ANGIE S 250.90 DIABETES TYPE 2 W/ COMPLICATIONS ( UNSPEC) 11/10/2013 SABIHA PICTURE ENGRAVER, ANGIE S 786.50 CHEST PAIN 11/10/2013 MADL PICTURE ENGRAVER, COREY L 250.90 DIABETES TYPE 2 W/ COMPLICATIONS (UNSPEC) 11/10/2013 MADL PICTURE ENGRAVER, COREY L 786.50 CHEST PAIN 11/10/2013 MADL PICTURE ENGRAVER, COREY L 250.90 DIABETES TYPE 2 W/ COMPLICATIONS (UNSPEC) 11/10/2013 MADL PICTURE ENGRAVER, COREY L 786.50 CHEST PAIN 11/10/2013 MAGUIRE DO, ALVERTO K 250.90 DIABETES TYPE 2 W/ COMPLICATIONS (UNSPEC) 11/10/2013 MAGUIRE DO, ALVERTO K 786.50 CHEST PAIN 11/10/2013 MADL PICTURE ENGRAVER, COREY L 250.90 DIABETES TYPE 2 W/ COMPLICATIONS (UNSPEC) 11/10/2013 MADL PICTURE ENGRAVER, COREY L 786.50 CHEST PAIN 11/10/2013 MADL PICTURE ENGRAVER, COREY L 250.90 DIABETES TYPE 2 W/ COMPLICATIONS (UNSPEC) 11/10/2013 MADL PICTURE ENGRAVER, COREY L 786.50 CHEST PAIN 11/10/2013 MADL PICTURE ENGRAVER, COREY L 250.90 DIABETES TYPE 2 W/ COMPLICATIONS (UNSPEC) 11/10/2013 MADL PICTURE ENGRAVER, COREY L 786.50 CHEST PAIN 11/12/2013 MADL PICTURE ENGRAVER, COREY L 461.9 SINUSITIS ACUTE 11/12/2013 PAUL MAGUIRE DOA K 461.9 SINUSITIS ACUTE 11/12/2013 GILMER PICTURE ENGRAVER, BRYSON A 461.9 SINUSITIS ACUTE 11/12/2013 MADL PICTURE ENGRAVER, COREY L 461.9 SINUSITIS ACUTE 11/12/2013 GILMER PICTURE ENGRAVER, BRYSON A 461.9 SINUSITIS ACUTE 11/12/2013 TWAN PICTURE ENGRAVER, EDUARDO R 461.9 SINUSITIS ACUTE 11/12/2013 MADL PICTURE ENGRAVER, COREY L 461.9 SINUSITIS ACUTE 11/12/2013 MADL PICTURE ENGRAVER, COREY L 461.9 SINUSITIS ACUTE 11/12/2013 MADL PICTURE ENGRAVER, COREY L 461.9 SINUSITIS ACUTE 11/12/2013 SABIHA PICTURE ENGRAVER, ANGIE S 461.9 SINUSITIS ACUTE 11/12/2013 SABIHA PICTURE ENGRAVER, ANGIE S 461.9 SINUSITIS ACUTE 11/12/2013 MADL PICTURE ENGRAVER, COREY L 461.9 SINUSITIS ACUTE 11/12/2013 MADL PICTURE ENGRAVER, COREY L 461.9 SINUSITIS ACUTE 11/12/2013 ANDREZ DOPAULA K 461.9 SINUSITIS ACUTE 11/12/2013 MADL PICTURE ENGRAVER, COREY L 461.9 SINUSITIS ACUTE 11/12/2013 MADL PICTURE ENGRAVER, COREY L 461.9 SINUSITIS ACUTE 11/12/2013 MADL PICTURE ENGRAVER, COREY L 461.9 SINUSITIS ACUTE 11/19/2013 GAGE MARSHALL FACC, SHRUTHI FACP CCDS Ot 250.00 DIAB AVELINA WO COMPL, TYPE II OR UNSPEC TY 11/19/2013 SHRUTHI MANUEL MD, FACC FACP CCDS Ot 272.4 HYPERLIPIDEMIA NEC/NOS 11/19/2013 SHRUTHI MANUEL MD, FACC FACP CCDS Ot 401.9 HYPERTENSION NOS 11/19/2013 GAGE MARSHALL FACC, SHRUTHI FACP CCDS Ot 414.01 CORONARY ATHEROSCLEROSIS OF [place] CORON 11/19/2013 SHRUTHI MANUEL MD, FACCP CCDS Ot 496 CHR AIRWAY OBSTRUCT NEC 11/19/2013 SHRUTHI MANUEL MD, FACC FACP CCDS Ot 786.59 CHEST PAIN NEC 11/19/2013 GAGE MARSHALL FACC, ALI FACP CCDS Ot V15.82 HISTORY OF TOBACCO USE 11/19/2013 GAGE MARSHALL FACC, SHRUTHI FACP CCDS Ot V17.3 FAM HX-ISCHEM HEART DIS 11/19/2013 GAGE MARSHALL FACC, SHRUTHI FACP CCDS Ot V58.69 OTH MED,LT,CURRENT USE 12/23/2013 GILMER PICTURE ENGRAVER, BRYSON A 564.00 UNSPECIFIED CONSTIPATION 12/23/2013 MADL PICTURE ENGRAVER, COREY L 564.00 UNSPECIFIED CONSTIPATION 12/23/2013 GILMER PICTURE ENGRAVER, BRYSON A 564.00 UNSPECIFIED CONSTIPATION 12/23/2013 EDUARDO TRENT APRN R 564.00 UNSPECIFIED CONSTIPATION 12/23/2013 MADL PICTURE ENGRAVER, COREY L 564.00 UNSPECIFIED CONSTIPATION 12/23/2013 MADL PICTURE ENGRAVER, COREY L 564.00 UNSPECIFIED CONSTIPATION 12/23/2013 MADL PICTURE ENGRAVER, COREY L 564.00 UNSPECIFIED CONSTIPATION 12/23/2013 SABIHA PICTURE ENGRAVER, ANGIE S 564.00 UNSPECIFIED CONSTIPATION 12/23/2013 SABIHA PICTURE ENGRAVER, ANGIE S 564.00 UNSPECIFIED CONSTIPATION 12/23/2013 MADL PICTURE ENGRAVER, COREY L 564.00 UNSPECIFIED CONSTIPATION 12/23/2013 MADL PICTURE ENGRAVER, COREY L 564.00 UNSPECIFIED CONSTIPATION 12/23/2013 ANDREZ DO, ALVERTO K 564.00 UNSPECIFIED CONSTIPATION 12/23/2013 MADL PICTURE ENGRAVER, COREY L 564.00 UNSPECIFIED CONSTIPATION 12/23/2013 MADL PICTURE ENGRAVER, COREY L 564.00 UNSPECIFIED CONSTIPATION 12/23/2013 MADL PICTURE ENGRAVER, COREY L 564.00 UNSPECIFIED CONSTIPATION 12/31/2013 MADL PICTURE ENGRAVER, COREY L V04.81 FLU SHOT 12/31/2013 GILMER CASTRO BRYSON A V04.81 FLU SHOT 12/31/2013 SHOLA TRENT APRNIA R V04.81 FLU SHOT 12/31/2013 MADL PICTURE ENGRAVER, COREY L V04.81 FLU SHOT 12/31/2013 MADL PICTURE ENGRAVER, COREY L V04.81 FLU SHOT 12/31/2013 MADL PICTURE ENGRAVER, COREY L V04.81 FLU SHOT 12/31/2013 SABIHA PICTURE ENGRAVER, ANGIE S V04.81 FLU SHOT 12/31/2013 SABIHA PICTURE ENGRAVER, ANGIE S V04.81 FLU SHOT 12/31/2013 MADL PICTURE ENGRAVER, COREY L V04.81 FLU SHOT 12/31/2013 MADL PICTURE ENGRAVER, COREY L V04.81 FLU SHOT 12/31/2013 MAGUIRE DO, ALVERTO K V04.81 FLU SHOT 12/31/2013 MADL PICTURE ENGRAVER, COREY L V04.81 FLU SHOT 12/31/2013 MADL PICTURE ENGRAVER, COREY L V04.81 FLU SHOT 12/31/2013 MADL PICTURE ENGRAVER, COREY L V04.81 FLU SHOT 01/05/2014 GILMER PICTURE ENGRAVER, BRYSON A V72.31 OTOLARYNGOLOGY SURGEON EXAM, ROUTINE 01/05/2014 GILMER PICTURE ENGRAVER, BRYSON A V76.10 BREAST CANCER SCREENING 01/05/2014 TRENT PICTURE ENGRAVER, EDUARDO R V72.31 OTOLARYNGOLOGY SURGEON EXAM, ROUTINE 01/05/2014 TRENT PICTURE ENGRAVER, EDUARDO R V76.10 BREAST CANCER SCREENING 01/05/2014 MADL PICTURE ENGRAVER, COREY L V72.31 OTOLARYNGOLOGY SURGEON EXAM, ROUTINE 01/05/2014 MADL PICTURE ENGRAVER, COREY L V76.10 BREAST CANCER SCREENING 01/05/2014 MADL PICTURE ENGRAVER, COREY L V72.31 OTOLARYNGOLOGY SURGEON EXAM, ROUTINE 01/05/2014 MADL PICTURE ENGRAVER, COREY L V76.10 BREAST CANCER SCREENING 01/05/2014 MADL PICTURE ENGRAVER, COREY L V72.31 OTOLARYNGOLOGY SURGEON EXAM, ROUTINE 01/05/2014 MADL PICTURE ENGRAVER, COREY L V76.10 BREAST CANCER SCREENING 01/05/2014 SABIHA PICTURE ENGRAVER, ANGIE S V72.31 OTOLARYNGOLOGY SURGEON EXAM, ROUTINE 01/05/2014 SABIHA PICTURE ENGRAVER, ANGIE S V76.10 BREAST CANCER SCREENING 01/05/2014 SABIHA PICTURE ENGRAVER, ANGIE S V72.31 OTOLARYNGOLOGY SURGEON EXAM, ROUTINE 01/05/2014 SABIHA PICTURE ENGRAVER, ANGIE S V76.10 BREAST CANCER SCREENING 01/05/2014 MADL PICTURE ENGRAVER, COREY L V72.31 OTOLARYNGOLOGY SURGEON EXAM, ROUTINE 01/05/2014 MADL PICTURE ENGRAVER, COREY L V76.10 BREAST CANCER SCREENING 01/05/2014 MADL PICTURE ENGRAVER, COREY L V72.31 OTOLARYNGOLOGY SURGEON EXAM, ROUTINE 01/05/2014 MADL PICTURE ENGRAVER, COREY L V76.10 BREAST CANCER SCREENING 01/05/2014 MAGUIRE DO, ALVERTO K V72.31 OTOLARYNGOLOGY SURGEON EXAM, ROUTINE 01/05/2014 MAGUIRE DO, ALVERTO K V76.10 BREAST CANCER SCREENING 01/05/2014 MADL PICTURE ENGRAVER, COREY L V72.31 OTOLARYNGOLOGY SURGEON EXAM, ROUTINE 01/05/2014 MADL PICTURE ENGRAVER, COREY L V76.10 BREAST CANCER SCREENING 01/05/2014 MADL PICTURE ENGRAVER, COREY L V72.31 OTOLARYNGOLOGY SURGEON EXAM, ROUTINE 01/05/2014 MADL PICTURE ENGRAVER, COREY L V76.10 BREAST CANCER SCREENING 01/05/2014 MADL PICTURE ENGRAVER, COREY L V72.31 OTOLARYNGOLOGY SURGEON EXAM, ROUTINE 01/05/2014 MADL PICTURE ENGRAVER, COREY L V76.10 BREAST CANCER SCREENING 02/01/2014 CATARINO INTERIANO PICTURE ENGRAVER Ot 729.5 PAIN IN LIMB 02/03/2014 BRYSON SCHERER PICTURE ENGRAVER Ot V76.12 02/07/2014 RACHAEL MARSHALL, WILL Martin Ot 723.1 02/07/2014 RACHAEL MARSHALL, WILL Martin Ot 784.2 02/07/2014 ZELALEM SUMMERS DO Ot 327.23 02/07/2014 ZELALEM SUMMERS DO Ot 493.20 02/07/2014 GAGE MARSHALL [facility], ALI FACP CCDS Ot 272.4 02/07/2014 GAGE MARSHALL FAC, ALI FACP CCDS Ot 414.00 02/07/2014 BRYSON SCHERER PICTURE ENGRAVER Ot V76.12 02/07/2014 FIFI NELSON MD Ot 723.0 02/07/2014 RICKEY ROTH 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 Ot 272.4 02/10/2014 BRYSON SCHERER PICTURE ENGRAVER Ot V76.12 02/16/2014 FIFI NELSON MD J Ot 723.0 02/22/2014 MADL PICTURE ENGRAVER, COREY L 728.85 SPASM OF MUSCLE 02/22/2014 SABIHA PICTURE ENGRAVER, ANGIE S 728.85 SPASM OF MUSCLE 02/22/2014 SABIHA PICTURE ENGRAVER, ANGIE S 728.85 SPASM OF MUSCLE 02/22/2014 MADL PICTURE ENGRAVER, COREY L 728.85 SPASM OF MUSCLE 02/22/2014 MADL PICTURE ENGRAVER, COREY L 728.85 SPASM OF MUSCLE 02/22/2014 MAGUIRE PAUL RAMSEYA K 728.85 SPASM OF MUSCLE 02/22/2014 MADL PICTURE ENGRAVER, COREY L 728.85 SPASM OF MUSCLE 02/22/2014 MADL PICTURE ENGRAVER, COREY L 728.85 SPASM OF MUSCLE 02/22/2014 MADL PICTURE ENGRAVER, COREY L 728.85 SPASM OF MUSCLE 03/01/2014 RICKEY ROTH 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 Ot 272.4 03/02/2014 GAGE PACKERC, ALI FACP CCDS Ot 250.00 03/02/2014 GAGE PACKERC, ALI FACP CCDS Ot 272.4 03/02/2014 GAGE PACKERC, ALI FACP CCDS Ot 278.00 03/02/2014 GAGE PACKERC, ALI FACP CCDS Ot 327.23 03/02/2014 GAGE PACKERC, ALI FACP CCDS Ot 414.00 03/02/2014 GAGE PACKERC, ALI FACP CCDS Ot 496 03/02/2014 GAGE PACKERC, ALI FACP CCDS Ot 729.5 03/11/2014 FIFI NELSON MD Ot 723.0 03/11/2014 RICKEY ROTH 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 Ot 272.4 03/23/2014 GAGE PACKERC, ALI FACP CCDS Ot 250.00 03/23/2014 GAGE PACKERC, ALI FACP CCDS Ot 272.4 03/23/2014 GAGE PACKERC, ALI FACP CCDS Ot 278.00 03/23/2014 GAGE PACKERC, ALI FACP CCDS Ot 327.23 03/23/2014 GAGE PACKERC, ALI FACP CCDS Ot 414.00 03/23/2014 GAGE PACKERC, ALI FACP CCDS Ot 496 03/23/2014 GAGE MARSHALL [facility], ALI FACP CCDS Ot 729.5 03/31/2014 GAGE MARSHALL [facility], ALI FACP CCDS Ot 250.00 03/31/2014 GAGE MARSHALL [facility], ALI FACP CCDS Ot 272.4 03/31/2014 GAGE MARSHALL [facility], ALI FACP CCDS Ot 278.00 03/31/2014 GAGE MARSHALL [facility], ALI FACP CCDS Ot 327.23 03/31/2014 GAGE MARSHALL [facility], ALI FACP CCDS Ot 414.00 03/31/2014 GAGE MARSHALL [facility], ALI FACP CCDS Ot 496 03/31/2014 GAGE MARSHALL [facility], ALI FACP CCDS Ot 729.5 04/03/2014 MALIA RAMÍREZ Ot 487.1 FLU W RESP MANIFEST NEC 04/03/2014 MALIA RAMÍREZ Ot 491.21 OBSTR CHRONIC BRONCHITIS, W (ACUTE) EXAC 04/03/2014 MALIA RAMÍREZ Ot 786.2 COUGH 05/02/2014 RICKEY ROTH 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 Ot 414.00 05/02/2014 BAIMA, RICKEY L 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 Ot 785.1 05/10/2014 BAIMA, RICKEY L 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 Ot 414.00 05/10/2014 BAIMA, RICKEY L 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 Ot 785.1 06/15/2014 WILL CANO MD Ot 723.1 06/15/2014 WILL CANO MD Ot 784.2 06/24/2014 MADL PICTURE ENGRAVER, COREY L 716.90 ARTHRITIS/ ARTHROPATHY, UNSPECIFIED 06/24/2014 MADL PICTURE ENGRAVER, COREY L 729.1 MYALGIA AND MYOSITIS UNSPECIFIED 06/24/2014 MADL PICTURE ENGRAVER, COREY L 716.90 ARTHRITIS/ ARTHROPATHY, UNSPECIFIED 06/24/2014 MADL PICTURE ENGRAVER, COREY L 729.1 MYALGIA AND MYOSITIS UNSPECIFIED 06/24/2014 MADL PICTURE ENGRAVER, COREY L 716.90 ARTHRITIS/ ARTHROPATHY, UNSPECIFIED 06/24/2014 MADL PICTURE ENGRAVER, COREY L 729.1 MYALGIA AND MYOSITIS UNSPECIFIED 07/01/2014 TRACY MARSHALL, WAGNER Castorena Ot 723.0 07/01/2014 TRACY MARSHALL, WAGNER Castorena Ot V72.63 07/01/2014 TRACY MARSHALL, WAGNER Castorena Ot V72.81 07/01/2014 TRACY MARSHALL, WAGNER Castorena Ot V74.8 07/01/2014 TRACY MARSHALL, WAGNER Castorena Ot 486 07/01/2014 RACHAEL MARSHALL, WILL Martin Ot 723.1 07/01/2014 RACHAEL MARSHALL, WILL Martin Ot 784.2 07/01/2014 MELINA RAMSEY ZELALEM M Ot 327.23 07/01/2014 MELINA RAMSEY ZELALEM M Ot 493.20 07/01/2014 GAGE MARSHALL FACC, ALI FACP CCDS Ot 272.4 07/01/2014 GAGE MARSHALL FACC, ALI FACP CCDS Ot 414.00 07/01/2014 BRYSON SCHERER APRN Ot V76.12 07/01/2014 LESLIE MARSHALL, FIFI Pedraza Ot 723.0 07/01/2014 RICKEY ROTH 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 Ot 272.4 07/01/2014 GAGE MARSHALL FACC, ALI FACP CCDS Ot 250.00 07/01/2014 GAGE MARSHALL FACC, ALI FACP CCDS Ot 272.4 07/01/2014 GAGE MARSHALL FACC, ALI FACP CCDS Ot 278.00 07/01/2014 GAGE MARSHALL FACC, ALI FACP CCDS Ot 327.23 07/01/2014 GAGE MARSHALL FACC, ALI FACP CCDS Ot 414.00 07/01/2014 GAGE MARSHALL FACC, ALI FACP CCDS Ot 496 07/01/2014 GAGE MARSHALL FACC, ALI FACP CCDS Ot 729.5 07/01/2014 RICKEY ROTH 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 Ot 414.00 07/01/2014 RICKEY ROTH 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 Ot 785.1 07/01/2014 MAGUIRE DO ALVERTO K Ot 491.21 07/01/2014 MAGUIRE DO, ALVERTO K Ot 518.81 07/02/2014 MAGUIRE DO, ALVERTO K Ot 491.21 07/02/2014 MAGUIRE DO, ALVERTO K Ot 518.81 07/02/2014 MAGUIRE DO, ALVERTO K Ot 491.21 07/02/2014 PAUL MAGUIRE DOA Danyell Ot 518.81 07/03/2014 MAGUIRE PAUL RAMSEYA K Ot 491.21 07/03/2014 PAUL AMGUIRE DOA K Ot 518.81 07/04/2014 PAUL MAGUIRE DOA K Ot 491.21 07/04/2014 PAUL MAGUIRE DOA K Ot 518.81 07/05/2014 PAUL MAGUIRE DOA K Ot 491.21 07/05/2014 PAUL MAGUIRE DOA K Ot 518.81 07/05/2014 PAUL MAGUIRE DOA K Ot 250.60 DIAB W NEURO MANIFEST, TYPE II OR UNSPEC 07/05/2014 PAUL MAGUIRE DOA K Ot 272.1 PURE HYPERGLYCERIDEMIA 07/05/2014 ALVERTO MAGUIRE DO Ot 272.4 HYPERLIPIDEMIA NEC/NOS 07/05/2014 PAUL MAGUIRE DOA K Ot 278.01 MORBID OBESITY 07/05/2014 PAUL MAGUIRE DOA K Ot 300.01 PANIC DISORDER WITHOUT AGORAPHOBIA 07/05/2014 PAUL MAGUIRE DOA Danyell Ot 311 DEPRESSIVE DISORDER NEC 07/05/2014 PAUL MAGUIRE DOA K Ot 327.23 OBSTRUCTIVE SLEEP APNEA (ADULT) (PEDIATR 07/05/2014 PAUL MAGUIRE DOA K Ot 357.2 NEUROPATHY IN DIABETES 07/05/2014 ALVERTO MAGUIRE DO Ot 414.00 CORON ATHEROSCLER NOS TYPE VESSEL, NATIV 07/05/2014 ALVERTO MAGUIRE DO Ot 433.10 CAROTID ARTERY OCCLUSION 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 CEREBRAL IN 07/05/2014 ALVERTO MAGUIRE DO K Ot 433.30 MULT BILTRAL ARTERY OCCLUSION WO CEREBRA 07/05/2014 ALVERTO MAGUIRE DO Ot 493.22 CHRONIC OBSTRUCTIVE ASTHMA, W (ACUTE) EX 07/05/2014 ALVERTO MAGUIRE DO Ot 518.0 PULMONARY COLLAPSE 07/05/2014 PAUL MAGUIRE DOA K Ot 518.84 ACUTE AND CHRONIC RESPIRATORY FAILURE 07/05/2014 PAUL MAGUIRE DOA K Ot 519.19 OTHER DISEASES OF TRACHEA AND BRONCHUS 07/05/2014 PAUL MAGUIRE DOA K Ot 530.81 ESOPHAGEAL REFLUX 07/05/2014 PAUL MAGUIRE DOA K Ot 564.1 IRRITABLE BOWEL SYNDROME 07/05/2014 PAUL MAGUIRE DOA K Ot 714.0 RHEUMATOID ARTHRITIS 07/05/2014 PAUL MAGUIRE DOA K Ot 715.90 OSTEOARTHROS NOS-UNSPEC 07/05/2014 ALVERTO MAGUIRE DO Ot 723.0 CERVICAL SPINAL STENOSIS 07/05/2014 ALVERTO MAGUIRE DO Ot 729.1 MYALGIA AND MYOSITIS NOS 07/05/2014 ALVERTO MAGUIRE DO Ot 729.82 CRAMP IN LIMB 07/05/2014 ALVERTO MAGUIRE DO Ot 786.50 CHEST PAIN NOS 07/05/2014 ALVERTO MAGUIRE DO Ot V12.71 PERSONAL HISTORY OF PEPTIC ULCER DISEASE 07/05/2014 ALVERTO MAGUIRE DO Ot V15.82 HISTORY OF TOBACCO USE 07/05/2014 ALVERTO MAGUIRE DO Ot V16.1 FM HX-TRACH/BRONCHOG MAL 07/05/2014 ALVERTO MAGUIRE DO Ot V45.4 ARTHRODESIS STATUS 07/05/2014 ALVERTO MAGUIRE DO Ot V45.82 PERCUTANEOUS TRANSLUM CORON ANGIOPLASTY 07/05/2014 ALVERTO MAGUIRE DO Ot V85.34 BODY MASS INDEX 34.0-34.9, ADULT 07/12/2014 COREY JUAREZ APRN 356.9 UNSPECIFIED IDIOPATHIC PERIPHERAL NEUROPATHY 07/27/2014 TRACY MARSHALL, WAGNER Castorena Ot 723.0 07/27/2014 TRACY MARSHALL, WAGNER Castorena Ot V72.63 07/27/2014 TRACY MARSHALL, WAGNER Castorena Ot V72.81 07/27/2014 TRACY MARSHALL, WAGNER Castorena Ot V74.8 07/27/2014 TRACY MARSHALL, WAGNER Castorena Ot 486 07/27/2014 RACHAEL MARSHALL, WILL Martin Ot 723.1 07/27/2014 RACHAEL MARSHALL, WILL Martin Ot 784.2 07/27/2014 ZELALEM SUMMERS DO Ot 327.23 07/27/2014 ZELALEM SUMMERS DO Ot 493.20 07/27/2014 GAGE MARSHALL FAC, SHRUTHI PACKERP CCDS Ot 272.4 07/27/2014 GAGE MARSHALL FACC, SHRUTHI PACKERP CCDS Ot 414.00 07/27/2014 BRYSON SCHERER APRN Ot V76.12 07/27/2014 FIFI NELSON MD Ot 723.0 07/27/2014 RICKEY ROTH 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 Ot 272.4 07/27/2014 GAGE MARSHALL FACC, ALI OCHOAP CCDS Ot 250.00 07/27/2014 GAGE MARSHALL FACC, ALI FACP CCDS Ot 272.4 07/27/2014 GAGE MARSHALL [facility], ALI FACP CCDS Ot 278.00 07/27/2014 GAGE MARSHALL [facility], ALI FACP CCDS Ot 327.23 07/27/2014 GAGE MARSHALL [facility], ALI FACP CCDS Ot 414.00 07/27/2014 GAGE MARSHALL [facility], ALI FACP CCDS Ot 496 07/27/2014 GAGE MARSHALL [facility], ALI FACP CCDS Ot 729.5 07/27/2014 BUFFYRICKEY DOWNS Daxa 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 Ot 414.00 07/27/2014 BUFFYYARELI RICKEY L 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 Ot 785.1 08/22/2014 MELINA DO, ZELALEM M Ot 278.00 08/22/2014 MELINA DO, ZELALEM M Ot 327.23 08/22/2014 MELINA DO, ZELALEM M Ot 493.90 09/05/2014 MELINA DO, ZEALLEM M Ot 278.00 09/05/2014 MELNIA DO, ZELALEM M Ot 327.23 09/05/2014 MELINA DO, ZELALEM M Ot 493.90 11/27/2014 MELINA DO, ZELALEM M Ot 278.00 11/27/2014 MELINA DO, ZELALEM M Ot 327.23 11/27/2014 MELINA DO, ZELALEM M Ot 493.90 11/27/2014 GAGE MARSHALL [facility], ALI FACP CCDS Ot 250.60 11/27/2014 GAGE MARSHALL [facility], ALI FACP CCDS Ot 272.4 11/27/2014 GAGE MARSHALL [facility], ALI FACP CCDS Ot 278.00 11/27/2014 GAGE MARSHALL [facility], ALI FACP CCDS Ot 327.23 11/27/2014 GAGE MARSHALL [facility], ALI FACP CCDS Ot 357.2 11/27/2014 GAGE MARSHALL [facility], ALI FACP CCDS Ot 414.00 11/27/2014 GAGE MARSHALL [facility], ALI FACP CCDS Ot 433.10 11/27/2014 GAGE MARSHALL [facility], ALI FACP CCDS Ot 496 11/27/2014 CATARINO INTERIANO PICTURE ENGRAVER Ot 306.4 PSYCHOGENIC GI DISEASE 11/27/2014 CATARINO INTERIANO APRN Ot 491.21 OBSTR CHRONIC BRONCHITIS, W (ACUTE) EXAC 11/27/2014 CATARINO INTERIANO APRN Ot 723.1 CERVICALGIA 12/13/2014 GAGE MARSHALL FACC, ALI FACP CCDS Ot 250.60 12/13/2014 GAGE MARSHALL FACC, ALI FACP CCDS Ot 272.4 12/13/2014 GAGE MD FACC, ALI FACP CCDS Ot 278.00 12/13/2014 GAGE MD FACC, ALI FACP CCDS Ot 327.23 12/13/2014 GAGE MD FACC, ALI FACP CCDS Ot 357.2 12/13/2014 GAGE MD FACC, ALI FACP CCDS Ot 414.00 12/13/2014 GAGE MARSHALL FACC, ALI FACP CCDS Ot 433.10 12/13/2014 GAGE MARSHALL FACC, ALI FACP CCDS Ot 496 12/27/2014 GAGE MARSHALL FACC, ALI FACP CCDS Ot 250.60 12/27/2014 GAGE MARSHALL FACC, ALI FACP CCDS Ot 272.4 12/27/2014 GAGE MARSHALL FACC, ALI FACP CCDS Ot 278.00 12/27/2014 GAGE MARSHALL FACC, ALI FACP CCDS Ot 327.23 12/27/2014 GAGE MARSHALL FACC, ALI FACP CCDS Ot 357.2 12/27/2014 GAGE MARSHALL FACC, ALI FACP CCDS Ot 414.00 12/27/2014 GAGE MARSHALL FACC, ALI FACP CCDS Ot 433.10 12/27/2014 GAGE MARSHALL FACC, ALI FACP CCDS Ot 496 01/23/2015 MADL, COREY L 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 Ot Z12.31 01/24/2015 MADL, COREY L 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 Ot Z12.31 02/08/2015 MADL, COREY L 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 Ot Z12.31 02/11/2015 TRACY MARSHALL, WAGNER Castorena Ot 723.0 02/11/2015 TRACY MARSHALL, WAGNER Castorena Ot V72.63 02/11/2015 WAGNER MOLINA MD Ot V72.81 02/11/2015 WAGNER MOLINA MD Ot V74.8 02/11/2015 TRACY MARSHALL, WAGNER Castorena Ot 486 02/11/2015 WILL CANO MD Ot 723.1 02/11/2015 WILL CANO MD Ot 784.2 02/11/2015 MELINA RAMSEYZELALEM Mario Ot 327.23 02/11/2015 MELINA RAMSEYZELALEM Mario Ot 493.20 02/11/2015 GAGE MARSHALL FACC, ALI FACP CCDS Ot 272.4 02/11/2015 GAGE MARSHALL FACC, ALI FACP CCDS Ot 414.00 02/11/2015 GILMERBRYSON Becky CASTRO Ot V76.12 02/11/2015 FIFI NELSON MD Ot 723.0 02/11/2015 RICKEY ROTH 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 Ot 272.4 02/11/2015 GAGE MARSHALL FACC, ALI FACP CCDS Ot 250.00 02/11/2015 GAGE MARSHALL FACC, ALI FACP CCDS Ot 272.4 02/11/2015 GAGE AMRSHALL FACC, ALI FACP CCDS Ot 278.00 02/11/2015 GAGE MARSHALL FACC, ALI FACP CCDS Ot 327.23 02/11/2015 GAGE MARSHALL FACC, ALI FACP CCDS Ot 414.00 02/11/2015 GAGE MARSHALL FACC, ALI FACP CCDS Ot 496 02/11/2015 GAGE PACKERC, ALI FACP CCDS Ot 729.5 02/11/2015 RICKEY ROTH 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 Ot 414.00 02/11/2015 RICKEY ROTH 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 Ot 785.1 02/11/2015 MELINA RAMSEY ZELALEM Mario Ot 278.00 02/11/2015 MELINA RAMSEY ZELALEM Mario Ot 327.23 02/11/2015 ZELALEM SUMMERS DO Ot 493.90 02/11/2015 GAGE MARSHALL FACC, ALI FACP CCDS Ot 250.60 02/11/2015 GAGE MARSHALL FACC, ALI FACP CCDS Ot 272.4 02/11/2015 GAGE MARSHALL FACC, ALI FACP CCDS Ot 278.00 02/11/2015 GAGE MARSHALL FACC, ALI FACP CCDS Ot 327.23 02/11/2015 GAGE MARSHALL FACC, ALI FACP CCDS Ot 357.2 02/11/2015 GAGE MARSHALL FACC, ALI FACP CCDS Ot 414.00 02/11/2015 GAGE MARSHALL FACC, ALI FACP CCDS Ot 433.10 02/11/2015 GAGE MARSHALL FACC, ALI FACP CCDS Ot 496 02/11/2015 LARRY COREY L 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 Ot Z12.31 02/13/2015 PAUL MAGUIRE DOA Danyell Ot E11.9 TYPE 2 DIABETES MELLITUS WITHOUT COMPLIC 02/13/2015 PAUL MAGUIRE DOA K Ot E66.9 OBESITY, UNSPECIFIED 02/13/2015 PAUL MAGUIRE DOA K Ot E78.5 HYPERLIPIDEMIA, UNSPECIFIED 02/13/2015 PAUL MAGUIRE DOA K Ot F41.9 ANXIETY DISORDER, UNSPECIFIED 02/13/2015 ANDREZ RAMSEY ALVERTO K Ot G47.33 OBSTRUCTIVE SLEEP APNEA (ADULT) (PEDIATR 02/13/2015 MAGUIRE DO ALVERTO K Ot I25.10 ATHSCL HEART DISEASE OF [place] CORONARY 02/13/2015 PAUL MAGUIRE DOA K Ot J38.3 OTHER DISEASES OF VOCAL [place] 02/13/2015 PAUL MAGUIRE DOA K Ot J44.1 CHRONIC OBSTRUCTIVE PULMONARY DISEASE W 02/13/2015 PAUL MAGUIRE DOA K Ot J96.21 ACUTE AND CHRONIC RESPIRATORY FAILURE [place] 02/13/2015 PAUL MAGUIRE DOA K Ot Z68.36 BODY MASS INDEX (BMI) 36.0-36.9, ADULT 02/13/2015 PAUL MAGUIRE DOA K Ot Z87.891 PERSONAL HISTORY OF NICOTINE DEPENDENCE 02/13/2015 LEONORA JUAREZA [employer] 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 Ot Z12.31 04/12/2015 CRYSTAL SANTIAGO MD Ot E11.9 TYPE 2 DIABETES MELLITUS WITHOUT COMPLIC 04/12/2015 CRYSTAL SANTIAGO MD Ot E66.9 OBESITY, UNSPECIFIED 04/12/2015 CRYSTAL SANTIAGO MD Ot F41.9 ANXIETY DISORDER, UNSPECIFIED 04/12/2015 CRYSTAL SANTIAGO MD Ot G47.33 OBSTRUCTIVE SLEEP APNEA (ADULT) (PEDIATR 04/12/2015 CRYSTAL SANTIAGO MD Ot I10 ESSENTIAL (PRIMARY) HYPERTENSION 04/12/2015 CRYSTAL SANTIAGO MD Ot I25.10 ATHSCL HEART DISEASE OF [place] CORONARY 04/12/2015 CRYSTAL SANTIAGO MD Ot J38.3 OTHER DISEASES OF VOCAL [place] 04/12/2015 CRYSTAL SANTIAGO MD, Ot J44.1 CHRONIC OBSTRUCTIVE PULMONARY DISEASE W 04/12/2015 CRYSTAL SANTIAGO MD Ot J45.909 UNSPECIFIED ASTHMA, UNCOMPLICATED 04/12/2015 CRYSTAL SANTIAGO MD Ot J96.21 ACUTE AND CHRONIC RESPIRATORY FAILURE [place] 04/12/2015 CRYSTAL SANTIAGO MD Ot M62.838 OTHER MUSCLE SPASM 04/12/2015 CRYSTAL SANTIAGO MD Ot Z68.37 BODY MASS INDEX (BMI) 37.0-37.9, ADULT 04/12/2015 CRYSTAL SANTIAGO MD Ot Z79.02 CAMERA PERSON (CURRENT) USE OF ANTITHROMBOTI 04/12/2015 CRYSTAL SANTIAGO MD Ot Z87.891 PERSONAL HISTORY OF NICOTINE DEPENDENCE 04/12/2015 CRYSTAL SANTIAGO MD Ot Z95.5 PRESENCE OF CORONARY ANGIOPLASTY IMPLANT 04/26/2015 GAGE MARSHALL FACC, ALI FACP CCDS Ot E11.9 04/26/2015 GAGE MARSHALL FACC, ALI FACP CCDS Ot E78.5 05/03/2015 CRYSTAL SANTIAGO MD Ot E11.9 05/03/2015 CRYSTAL SANTIAGO MD Ot E66.9 05/03/2015 CRYSTAL ASNTIAGO MD Ot F41.9 05/03/2015 CRYSTAL SANTIAGO MD Ot G47.33 05/03/2015 CRYSTAL SANTIAGO MD Ot I25.10 05/03/2015 CRYSTAL SANTIAGO MD Ot J38.5 05/03/2015 CRYSTAL SANTIAGO MD Ot J44.1 05/03/2015 CRYSTAL SANTIAGO MD Ot J45.909 05/03/2015 CRYSTAL SANTIAGO MD Ot J96.20 05/03/2015 CRYSTAL SANTIAGO MD N Ot M06.9 05/03/2015 CRYSTAL SANTIAGO MD N Ot R07.9 05/03/2015 CRYSTAL SANTIAGO MD Ot Z68.37 05/03/2015 CRYSTAL SANTIAGO MD Ot Z87.891 05/03/2015 CRYSTAL SANTIAGO MD N Ot Z95.5 05/03/2015 CRYSTAL SANTIAGO MD N Ot E11.9 05/03/2015 CRYSTAL SANTIAGO MD N Ot E66.9 05/03/2015 JACK MD, CRYSTAL N Ot F41.9 05/03/2015 JACK MARSHALL, CRYSTAL N Ot G47.33 05/03/2015 JACK MARSHALL, CRYSTAL N Ot I25.10 05/03/2015 JACK MARSHALL, CRYSTAL N Ot J38.5 05/03/2015 JACK MARSHALL, CRYSTAL N Ot J44.1 05/03/2015 JACK MARSHALL, CRYSTAL N Ot J45.909 05/03/2015 JACK MARSHALL, CRYSTAL N Ot J96.20 05/03/2015 JACK MARSHALL, CRYSTAL N Ot M06.9 05/03/2015 JACK MARSHALL, CRYSTAL N Ot R07.9 05/03/2015 JACK MARSHALL, CRYSTAL N Ot Z68.37 05/03/2015 JACK MARSHALL, CRYSTAL N Ot Z87.891 05/03/2015 JACK MARSHALL, CRYSTAL N Ot Z95.5 05/04/2015 JACK MARSHALL, CRYSTAL N Ot E11.9 05/04/2015 JACK MARSHALL, CRYSTAL N Ot E66.9 05/04/2015 JACK MARSHALL, CRYSTAL N Ot F41.9 05/04/2015 JACK MARSHALL, CRYSTAL N Ot G47.33 05/04/2015 JACK MARSHALL, CRYSTAL N Ot I25.10 05/04/2015 JACK MARSHALL, CRYSTAL N Ot J38.5 05/04/2015 JACK MARSHALL, CRYSTAL N Ot J44.1 05/04/2015 JACK MARSHALL, CRYSTAL N Ot J45.909 05/04/2015 JACK MARSHALL, CRYSTAL N Ot J96.20 05/04/2015 JACK MARSHALL, CRYSTAL N Ot M06.9 05/04/2015 JACK MARSHALL, CRYSTAL N Ot R07.9 05/04/2015 JACK MARSHALL, CRYSTAL N Ot Z68.37 05/04/2015 JACK MARSHALL, CRYSTAL N Ot Z87.891 05/04/2015 JACK MARSHALL, CRYSTAL N Ot Z95.5 05/04/2015 JACK MARSHALL, CRYSTAL N Ot E11.9 05/04/2015 JACK MARSHALL, CRYSTAL N Ot E66.01 05/04/2015 JACK MARSHALL, CRYSTAL N Ot E87.70 05/04/2015 JACK MARSHALL, CRYSTAL N Ot F41.9 05/04/2015 JACK MARSHALL, CRYSTAL N Ot G47.33 05/04/2015 JACK MARSHALL, CRYSTAL N Ot I10 05/04/2015 JACK MARSHALL, CRYSTAL N Ot I25.10 05/04/2015 JACK MARSHALL, CRYSTAL N Ot J38.3 05/04/2015 JACK MARSHALL, CRYSTAL N Ot J38.5 05/04/2015 JACK MARSHALL, CRYSTAL N Ot J44.1 05/04/2015 JACK MARSHALL, CRYSTAL N Ot J45.909 05/04/2015 JACK MARSHALL, CRYSTAL N Ot J96.10 05/04/2015 JACK MARSHALL, CRYSTAL N Ot K22.4 05/04/2015 JACK MARSHALL, CRYSTAL N Ot M06.9 05/04/2015 JACK MARSHALL, CRYSTAL N Ot M79.7 05/04/2015 JACK MARSHALL, CRYSTAL N Ot R06.1 05/04/2015 JACK MARSHALL, CRYSTAL N Ot Z68.37 05/04/2015 JACK MARSHALL, CRSYTAL N Ot Z87.891 05/04/2015 JACK MARSHALL, CRYSTAL N Ot Z95.5 05/05/2015 JACK MARSHALL, CRYSTAL N Ot E11.9 05/05/2015 JACK MARSHALL, CRYSTAL N Ot E66.01 05/05/2015 JACK MARSHALL, CRYSTAL N Ot E87.70 05/05/2015 JACK MARSHALL, CRYSTAL N Ot F41.9 05/05/2015 JACK MARSHALL, CRYSTAL N Ot G47.33 05/05/2015 JACK MARSHALL, CRYSTAL N Ot I10 05/05/2015 JACK MARSHALL, CRYSTAL N Ot I25.10 05/05/2015 JACK MARSHALL, CRYSTAL N Ot J38.3 05/05/2015 JACK MARSHALL, CRYSTAL N Ot J38.5 05/05/2015 JACK MARSHALL, CRYSTAL N Ot J44.1 05/05/2015 JACK MARSHALL, CRYSTAL N Ot J45.909 05/05/2015 JACK MARSHALL, CRYSTAL N Ot J96.10 05/05/2015 JACK MARSHALL, CRYSTAL N Ot K22.4 05/05/2015 JACK MARSHALL, CRYSTAL N Ot M06.9 05/05/2015 JACK MARSHALL, CRYSTAL N Ot M79.7 05/05/2015 JACK MARSHALL, CRYSTAL N Ot R06.1 05/05/2015 JACK MARSHALL, CRYSTAL N Ot Z68.37 05/05/2015 JACK MARSHALL, CRYSTAL N Ot Z87.891 05/05/2015 JACK MARSHALL, CRYSTAL N Ot Z95.5 05/06/2015 JACK MARSHALL, CRYSTAL N Ot E11.9 05/06/2015 JACK MARSHALL, CRYSTAL N Ot E66.01 05/06/2015 JACK MARSHALL, CRYSTAL N Ot E87.70 05/06/2015 JACK MARSHALL, CRYSTAL N Ot F41.9 05/06/2015 JACK MARSHALL, CRYSTAL N Ot G47.33 05/06/2015 JACK MARSHALL, CRYSTAL N Ot I10 05/06/2015 JACK MARSHALL, CRYSTAL N Ot I25.10 05/06/2015 JACK MARSHALL, CRYSTAL N Ot J38.3 05/06/2015 JACK MARSHALL, CRYSTAL N Ot J38.5 05/06/2015 JACK MARSHALL, CRYSTAL N Ot J44.1 05/06/2015 JACK MARSHALL, CRYSTAL N Ot J45.909 05/06/2015 JACK MARSHALL, CRYSTAL N Ot J96.10 05/06/2015 JACK MARSHALL, CRYSTAL N Ot K22.4 05/06/2015 JACK MARSHALL, CRYSTAL N Ot M06.9 05/06/2015 JACK MARSHALL, CRYSTAL N Ot M79.7 05/06/2015 JACK MARSHALL, CRYSTAL N Ot R06.1 05/06/2015 JACK MARSHALL, CRYSTAL N Ot Z68.37 05/06/2015 JACK MARSHALL, CRYSTAL N Ot Z87.891 05/06/2015 JACK MARSHALL, CRYSTAL N Ot Z95.5 05/07/2015 JACK MARSHALL, CRYSTAL N Ot E11.9 05/07/2015 JACK MARSHALL, CRYSTAL N Ot E66.01 05/07/2015 JACK MARSHALL, CRYSTAL N Ot E87.70 05/07/2015 JACK MARSHALL, CRYSTAL N Ot F41.9 05/07/2015 JACK MARSHALL, CRYSTAL N Ot G47.33 05/07/2015 JACK MARSHALL, CRYSTAL N Ot I10 05/07/2015 JACK MARSHALL, CRYSTAL N Ot I25.10 05/07/2015 JACK MARSHALL, CRYSTAL N Ot J38.3 05/07/2015 JACK MARSHALL, CRYSTAL N Ot J38.5 05/07/2015 JACK MARSHALL, CRYSTAL N Ot J44.1 05/07/2015 JACK MARSHALL, CRYSTAL N Ot J45.909 05/07/2015 JACK MARSHALL, CRYSTAL N Ot J96.10 05/07/2015 JACK MARSHALL, CRYSTAL N Ot K22.4 05/07/2015 JACK MARSHALL, CRYSTAL N Ot M06.9 05/07/2015 JACK MARSHALL, CRYSTAL N Ot M79.7 05/07/2015 JACK MARSHALL, CRYSTAL N Ot R06.1 05/07/2015 JACK MARSHALL, CRYSTAL N Ot Z68.37 05/07/2015 JACK MARSHALL, CRYSTAL N Ot Z87.891 05/07/2015 JACK MARSHALL, CRYSTAL N Ot Z95.5 05/08/2015 JCAK MARSHALL, CRYSTAL N Ot E11.9 05/08/2015 JACK MARSHALL, CRYSTAL N Ot E66.01 05/08/2015 JACK MARSHALL, CRYSTAL N Ot E87.70 05/08/2015 JACK MARSHALL, CRYSTAL N Ot F41.9 05/08/2015 JACK MARSHALL, CRYSTAL N Ot G47.33 05/08/2015 JACK MARSHALL, CRYSTAL N Ot I10 05/08/2015 JACK MARSHALL, CRYSTAL N Ot I25.10 05/08/2015 JACK MARSHALL, CRYSTAL N Ot J38.3 05/08/2015 JACK MARSHALL, CRYSTAL N Ot J38.5 05/08/2015 JACK MARSHALL, CRYSTAL N Ot J44.1 05/08/2015 JACK MARSHALL, CRYSTAL N Ot J45.909 05/08/2015 JACK MARSHALL, CRYSTAL N Ot J96.10 05/08/2015 JACK MARSHALL, CRYSTAL N Ot K22.4 05/08/2015 JACK MARSHALL, CRYSTAL N Ot M06.9 05/08/2015 AJCK MARSHALL, CRYSTAL N Ot M79.7 05/08/2015 JACK MARSHALL, CRYSTAL N Ot R06.1 05/08/2015 JACK MARSHALL, CRYSTAL N Ot Z68.37 05/08/2015 JACK MARSHALL, CRYSTAL N Ot Z87.891 05/08/2015 JACK MARSHALL, CRYSTAL N Ot Z95.5 05/08/2015 JACK MARSHALL, CRYSTAL N Ot E11.9 05/08/2015 JACK MARSHALL, CRYSTAL N Ot E66.01 05/08/2015 JACK MARSHALL, CRYSTAL N Ot E87.70 05/08/2015 JACK MARSHALL, CRYSTAL N Ot F41.9 05/08/2015 JACK MARSHALL, CRYSTAL N Ot G47.33 05/08/2015 JACK MARSHALL, CRYSTAL N Ot I10 05/08/2015 JACK MARSHALL, CRYSTAL N Ot I25.10 05/08/2015 JACK MARSHALL, CRYSTAL N Ot J38.3 05/08/2015 JACK MARSHALL, CRYSTAL N Ot J38.5 05/08/2015 JACK MARSHALL, CRYSTAL N Ot J44.1 05/08/2015 JACK MARSHALL, CRYSTAL N Ot J45.909 05/08/2015 JACK MARSHALL, CRYSTAL N Ot J96.10 05/08/2015 JACK MARSHALL, CRYSTAL N Ot K22.4 05/08/2015 JACK MARSHALL, CRYSTAL N Ot M06.9 05/08/2015 JACK MARSHALL, CRYSTAL N Ot M79.7 05/08/2015 JACK MARSHALL, CRYSTAL N Ot R06.1 05/08/2015 JACK MARSHALL, CRYSTAL N Ot Z68.37 05/08/2015 JACK MARSHALL, CRYSTAL N Ot Z87.891 05/08/2015 JACK MARSHALL, CRYSTAL N Ot Z95.5 05/09/2015 JACK MARSHALL, CRYSTAL N Ot E11.9 05/09/2015 JACK MARSHALL, CRYSTAL N Ot E66.01 05/09/2015 JACK MARSHALL, CRYSTAL N Ot E87.70 05/09/2015 JACK MARSHALL, CRYSTAL N Ot F41.9 05/09/2015 JACK MARSHALL, CRYSTAL N Ot G47.33 05/09/2015 JACK MARSHALL, CRYSTAL N Ot I10 05/09/2015 JACK MARSHALL, CRYSTAL N Ot I25.10 05/09/2015 JACK MARSHALL, CRYSTAL N Ot J38.3 05/09/2015 JACK MARSHALL, CRYSTAL N Ot J38.5 05/09/2015 JACK MARSHALL, CRYSTAL N Ot J44.1 05/09/2015 JACK MARSHALL, CRYSTAL N Ot J45.909 05/09/2015 JACK MARSHALL, CRYSTAL N Ot J96.10 05/09/2015 JACK MARSHALL, CRYSTAL N Ot K22.4 05/09/2015 JACK MARSHALL, CRYSTAL N Ot M06.9 05/09/2015 JACK MARSHALL, CRYSTAL N Ot M79.7 05/09/2015 JACK MARSHALL, CRYSTAL N Ot R06.1 05/09/2015 JACK MARSHALL, CRYSTAL N Ot Z68.37 05/09/2015 JACK MARSHALL, CRYSTAL N Ot Z87.891 05/09/2015 JACK MARSHALL, CRYSTAL N Ot Z95.5 05/09/2015 JACK MARSHALL, CRYSTAL N Ot E11.9 05/09/2015 JACK MARSHALL, CRYSTAL N Ot E66.01 05/09/2015 JACK MARSHALL, CRYSTAL N Ot E87.70 05/09/2015 JACK MARSHALL, CRYSTAL N Ot F41.9 05/09/2015 JACK MARSHALL, CRYSTAL N Ot G47.33 05/09/2015 JACK MARSHALL, CRYSTAL N Ot I10 05/09/2015 JACK MARSHALL, CRYSTAL N Ot I25.10 05/09/2015 JACK MARSHALL, CRYSTAL N Ot J38.3 05/09/2015 CRYSTAL SANTIAGO MD Ot J38.5 05/09/2015 CRYSTAL SANTIAGO MD Ot J44.1 05/09/2015 CRYSTAL SANTIAGO MD Ot J45.909 05/09/2015 CRYSTAL SANTIAGO MD Ot J96.10 05/09/2015 CRYSTAL SANTIAGO MD Ot K22.4 05/09/2015 CRYSTAL SANTIAGO MD Ot M06.9 05/09/2015 CRYSTAL SANTIAGO MD Ot M79.7 05/09/2015 CRYSTAL SANTIAGO MD Ot R06.1 05/09/2015 CRYSTAL SANTIAGO MD Ot Z68.37 05/09/2015 CRYSTAL SANTIAGO MD Ot Z87.891 05/09/2015 CRYSTAL SANTIAGO MD Ot Z95.5 05/09/2015 CRYSTAL SANTIAGO MD Ot B95.2 ENTEROCOCCUS THE CAUSE OF DISEASES CL 05/09/2015 CRYSTAL SANTIAGO MD Ot E11.9 TYPE 2 DIABETES MELLITUS WITHOUT COMPLIC 05/09/2015 CRYSTAL SANTIAGO MD Ot E66.01 MORBID (SEVERE) OBESITY DUE TO EXCESS CA 05/09/2015 CRYSTAL SANTIAGO MD Ot E87.70 FLUID OVERLOAD, UNSPECIFIED 05/09/2015 CRYSTAL SANTIAGO MD Ot F41.9 ANXIETY DISORDER, UNSPECIFIED 05/09/2015 CRYSTAL SANTIAGO MD Ot G47.33 OBSTRUCTIVE SLEEP APNEA (ADULT) (PEDIATR 05/09/2015 CRYSTAL SANTIAGO MD Ot I10 ESSENTIAL (PRIMARY) HYPERTENSION 05/09/2015 CRYSTAL SANTIAGO MD Ot I25.10 ATHSCL HEART DISEASE OF [place] CORONARY 05/09/2015 CRYSTAL SANTIAGO MD Ot J15.211 PNEUMONIA DUE TO METHICILLIN SUSCEP STAP 05/09/2015 CRYSTAL SANTIAGO MD Ot J38.3 05/09/2015 CRYSTAL SANTIAGO MD Ot J38.5 LARYNGEAL SPASM 05/09/2015 CRYSTAL SANTIAGO MD Ot J44.1 CHRONIC OBSTRUCTIVE PULMONARY DISEASE W 05/09/2015 CRYSTAL SANTIAGO MD Ot J45.909 UNSPECIFIED ASTHMA, UNCOMPLICATED 05/09/2015 CRYSTAL SANTIAGO MD Ot J96.10 CHRONIC RESPIRATORY FAILURE, UNSP W HYPO 05/09/2015 CRYSTAL SANTIAGO MD Ot K22.4 DYSKINESIA OF ESOPHAGUS 05/09/2015 CRYSTAL SANTIAGO MD Ot M06.9 RHEUMATOID ARTHRITIS, UNSPECIFIED 05/09/2015 CRYSTAL SANTIAGO MD Ot M79.7 FIBROMYALGIA 05/09/2015 CRYSTAL SANTIAGO MD Ot N17.9 ACUTE KIDNEY FAILURE, UNSPECIFIED 05/09/2015 CRYSTAL SANTIAGO MD Ot N39.0 URINARY TRACT INFECTION, SITE NOT SPECIF 05/09/2015 CRYSTAL SANTIAGO MD Ot R06.1 05/09/2015 CRYSTAL SANTIAGO MD Ot R65.20 SEVERE SEPSIS WITHOUT SEPTIC SHOCK 05/09/2015 CRYSTAL SANTIAGO MD Ot Z68.37 BODY MASS INDEX (BMI) 37.0-37.9, ADULT 05/09/2015 CRYSTAL SANTIAGO MD Ot Z87.891 PERSONAL HISTORY OF NICOTINE DEPENDENCE 05/09/2015 CRYSTAL SANTIAGO MD Ot Z95.5 PRESENCE OF CORONARY ANGIOPLASTY IMPLANT 05/10/2015 ZELALEM SUMMERS DO Ot E66.9 05/10/2015 ZELALEM SUMMERS DO Ot G47.33 05/10/2015 ZELALEM SUMMERS DO Ot J38.3 05/10/2015 ZELALEM SUMMERS DO Ot J45.909 05/12/2015 CATARINO INTERIANO APRN Ot J01.80 OTHER ACUTE SINUSITIS 05/12/2015 CATARINO INTERIANO APRN Ot J44.9 CHRONIC OBSTRUCTIVE PULMONARY DISEASE, U 05/12/2015 CATARINO INTERIANO APRN Ot M79.631 PAIN IN RIGHT FOREARM 05/12/2015 CATARINO INTERIANO APRN Ot Z93.0 TRACHEOSTOMY STATUS 05/12/2015 RACHAEL MARSHALL, WILL Martin Ot 723.1 05/12/2015 WILL CANO MD Ot 784.2 05/12/2015 ZELALEM SUMMERS DO Ot 327.23 05/12/2015 ZELALEM SUMMERS DO Ot 493.20 05/12/2015 GAGE MARSHALL FACC, SHRUTHI FORDE CCDS Ot 272.4 05/12/2015 GAGE MARSHALL FACC, ALI FACP CCDS Ot 414.00 05/12/2015 GILMER, BRYSONMAYANK Pena APRN Ot V76.12 05/12/2015 FIFI NELSON MD Ot 723.0 05/12/2015 RICKEY ROTH 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 Ot 272.4 05/12/2015 GAGE MARSHALL FACC, ALI FACP CCDS Ot 250.00 05/12/2015 GAGE MARSHALL FACC, ALI FACP CCDS Ot 272.4 05/12/2015 GAGE MARSHALL FACC, ALI FACP CCDS Ot 278.00 05/12/2015 GAGE MARSHALL FACC, ALI FACP CCDS Ot 327.23 05/12/2015 GAGE MARSHALL FACC, ALI FACP CCDS Ot 414.00 05/12/2015 GAGE MARSHALL FACC, ALI FACP CCDS Ot 496 05/12/2015 GAGE MARSHALL FACC, ALI FACP CCDS Ot 729.5 05/12/2015 RICKEY ROTH 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 Ot 414.00 05/12/2015 RICKEY ROTH 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 Ot 785.1 05/17/2015 ZELALEM SUMMERS DO Ot E66.9 05/17/2015 ZELALEM SUMMERS DO Ot G47.33 05/17/2015 ZELALEM SUMMERS DO Ot J38.3 05/17/2015 ZELALEM SUMMERS DO Ot J45.909 05/25/2015 JAMAR CLARK MD Ot B95.2 ENTEROCOCCUS THE CAUSE OF DISEASES CL 05/25/2015 JAMAR CLARK MD Ot D64.9 ANEMIA, UNSPECIFIED 05/25/2015 JAMAR CLARK MD Ot E11.9 TYPE 2 DIABETES MELLITUS WITHOUT COMPLIC 05/25/2015 JAMAR CLARK MD Ot F17.210 NICOTINE DEPENDENCE, CIGARETTES, UNCOMPL 05/25/2015 JAMAR CLARK MD Ot I10 ESSENTIAL (PRIMARY) HYPERTENSION 05/25/2015 JAMAR CLARK MD, Ot I25.10 ATHSCL HEART DISEASE OF [place] CORONARY 05/25/2015 JAMAR CLARK MD, Ot J11.08 FLU DUE TO UNIDENTIFIED FLU VIRUS W SPEC 05/25/2015 JAMAR CLARK MD, Ot J15.211 PNEUMONIA DUE TO METHICILLIN SUSCEP STAP 05/25/2015 JAMAR CLARK MD Ot J44.9 CHRONIC OBSTRUCTIVE PULMONARY DISEASE, U 05/25/2015 JAMAR CLARK MD Ot J95.89 OT POSTPROC COMPLICATIONS AND DISORDERS 05/25/2015 JAMAR CLARK MD Ot J96.10 CHRONIC RESPIRATORY FAILURE, UNSP W HYPO 05/25/2015 JAMAR CLARK MD, Ot K21.9 GASTRO-ESOPHAGEAL REFLUX DISEASE WITHOUT 05/25/2015 JAMAR CLARK MD, Ot M06.9 RHEUMATOID ARTHRITIS, UNSPECIFIED 05/25/2015 JMAAR CLARK MD Ot M79.7 FIBROMYALGIA 05/25/2015 JAMAR CLARK MD, Ot N39.0 URINARY TRACT INFECTION, SITE NOT SPECIF 05/25/2015 JAMAR CLARK MD Ot Z93.0 TRACHEOSTOMY STATUS 05/25/2015 JAMAR CLARK MD, Ot Z95.5 PRESENCE OF CORONARY ANGIOPLASTY IMPLANT 05/29/2015 JAMAR CLARK MD Ot B95.2 ENTEROCOCCUS THE CAUSE OF DISEASES CL 05/29/2015 JAMAR CLARK MD Ot D64.9 ANEMIA, UNSPECIFIED 05/29/2015 JAMAR CLARK MD Ot E11.9 TYPE 2 DIABETES MELLITUS WITHOUT COMPLIC 05/29/2015 JAMAR CLARK MD Ot F17.210 NICOTINE DEPENDENCE, CIGARETTES, UNCOMPL 05/29/2015 JAMAR CLARK MD Ot I10 ESSENTIAL (PRIMARY) HYPERTENSION 05/29/2015 JAMAR CLARK MD Ot I25.10 ATHSCL HEART DISEASE OF [place] CORONARY 05/29/2015 JAMAR CLARK MD Ot J11.08 FLU DUE TO UNIDENTIFIED FLU VIRUS W SPEC 05/29/2015 JAMAR CLARK MD Ot J15.211 PNEUMONIA DUE TO METHICILLIN SUSCEP STAP 05/29/2015 JAMAR CLARK MD, Ot J44.9 CHRONIC OBSTRUCTIVE PULMONARY DISEASE, U 05/29/2015 JAMAR CLARK MD, Ot J95.89 OTH POSTPROC COMPLICATIONS AND DISORDERS 05/29/2015 JAMAR CLARK MD, Ot J96.10 CHRONIC RESPIRATORY FAILURE, UNSP W HYPO 05/29/2015 JAMAR CLARK MD, Ot K21.9 GASTRO-ESOPHAGEAL REFLUX DISEASE WITHOUT 05/29/2015 AMBER MD, JAMAR A Ot M06.9 RHEUMATOID ARTHRITIS, UNSPECIFIED 05/29/2015 JAMAR CLARK MD Ot M79.7 FIBROMYALGIA 05/29/2015 JAMAR CLARK MD Ot N39.0 URINARY TRACT INFECTION, SITE NOT SPECIF 05/29/2015 JAMAR CLARK MD Ot Z93.0 TRACHEOSTOMY STATUS 05/29/2015 JAMAR CLARK MD Ot Z95.5 PRESENCE OF CORONARY ANGIOPLASTY IMPLANT 06/20/2015 JAMAR CLARK MD Ot B95.2 06/20/2015 JAMAR CLARK MD Ot D64.9 06/20/2015 JAMAR CLARK MD Ot E11.9 06/20/2015 JAMAR CLARK MD Ot F17.210 06/20/2015 JAMAR CLARK MD Ot I10 06/20/2015 JAMAR CLARK MD Ot I25.10 06/20/2015 JAMAR CLARK MD Ot J11.08 06/20/2015 JAMAR CLARK MD Ot J15.211 06/20/2015 JAMAR CLARK MD Ot J44.9 06/20/2015 JAMAR CLARK MD Ot J95.89 06/20/2015 JAMAR CLARK MD Ot J96.10 06/20/2015 JAMAR CLARK MD Ot K21.9 06/20/2015 JAMAR CLARK MD Ot M06.9 06/20/2015 JAMAR CLARK MD Ot M79.7 06/20/2015 JAMAR CLARK MD Ot N39.0 06/20/2015 JAMAR CLARK MD Ot Z93.0 06/20/2015 JAMAR CLARK MD Ot Z95.5 06/20/2015 JAMAR CLARK MD Ot B95.2 06/20/2015 JAMAR CLARK MD Ot D64.9 06/20/2015 JAMAR CLARK MD Ot E11.9 06/20/2015 JAMAR CLARK MD Ot F17.210 06/20/2015 JAMAR CLARK MD Ot I10 06/20/2015 JAMAR CLARK MD Ot I25.10 06/20/2015 JAMAR CLARK MD Ot J11.08 06/20/2015 JAMAR CLARK MD Ot J15.211 06/20/2015 JAMAR CLARK MD Ot J44.9 06/20/2015 JAMAR CLARK MD Ot J95.89 06/20/2015 JAMAR CLARK MD Ot J96.10 06/20/2015 JAMAR CLARK MD Ot K21.9 06/20/2015 JAMAR CLARK MD Ot M06.9 06/20/2015 JAMAR CLARK MD Ot M79.7 06/20/2015 JAMAR CLARK MD Ot N39.0 06/20/2015 JAMAR CLARK MD Ot Z93.0 06/20/2015 JAMAR CLARK MD Ot Z95.5 06/20/2015 JAMAR CLARK MD Ot B95.2 06/20/2015 JAMAR CLARK MD Ot D64.9 06/20/2015 JAMAR CLARK MD Ot E11.9 06/20/2015 JAMAR CLARK MD Ot F17.210 06/20/2015 JAMAR CLARK MD Ot I10 06/20/2015 JAMAR CLARK MD Ot I25.10 06/20/2015 JAMAR CLARK MD Ot J11.08 06/20/2015 JAMAR CLARK MD Ot J15.211 06/20/2015 JAMAR CLARK MD Ot J44.9 06/20/2015 JAMAR CLARK MD Ot J95.89 06/20/2015 JAMAR CLARK MD Ot J96.10 06/20/2015 JAMAR CLARK MD Ot K21.9 06/20/2015 JAMAR CLARK MD Ot M06.9 06/20/2015 JAMAR CLARK MD Ot M79.7 06/20/2015 JAMAR CLARK MD Ot N39.0 06/20/2015 JAMAR CLARK MD Ot Z93.0 06/20/2015 JAMAR CLARK MD Ot Z95.5 06/30/2015 COREY JUAREZ 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 Ot Z12.31 06/30/2015 GAGE MARSHALL FACC, ALI FACP CCDS Ot E11.9 06/30/2015 GAGE MARSHALL FACC, ALI FACP CCDS Ot E78.5 06/30/2015 PEEWEE MARSHALL, LEONELA P Ot J98.8 06/30/2015 PEEWEE MARSHALL, LEONELA P Ot T78.3XXA 06/30/2015 PEEWEE MARSHALL, LEONELA P Ot Z01.818 06/30/2015 PEEWEE MARSHALL, LEONELA P Ot Z11.2 06/30/2015 MELINA RAMSEY ZELALEM Mario Ot E66.9 06/30/2015 ZELALEM SUMMERS DO Ot G47.33 06/30/2015 ZELALEM SUMMERS DO Ot J38.3 06/30/2015 ZELALEM SUMMERS DO Ot J45.909 06/30/2015 TRACY MARSHALL, WAGNER Castorena Ot 723.0 06/30/2015 TRACY MARSHALL, WAGNER [place]na Ot V72.63 06/30/2015 TRACY MARSHALL, WAGNER [place] Ot V72.81 06/30/2015 TRACY MARSHALL, WAGNER Castorena Ot V74.8 06/30/2015 TRACY MARSHALL, WAGNER [place] Ot 486 06/30/2015 RACHAEL MARSHALL, WILL Martin Ot 723.1 06/30/2015 RACHAEL MARSHALL, WILL Martin Ot 784.2 06/30/2015 ZELALEM SUMMERS DO Ot 327.23 06/30/2015 ZELALEM SUMMERS DO Ot 493.20 06/30/2015 GAGE MARSHALL FAC, ALI FACP CCDS Ot 272.4 06/30/2015 GAGE MARSHALL [facility], ALI FACP CCDS Ot 414.00 06/30/2015 BRYSON SCHERER APRN Ot V76.12 06/30/2015 FIFI NELSON MD Ot 723.0 06/30/2015 RICKEY ROTH 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 Ot 272.4 06/30/2015 GAGE MARSHALL FACC, ALI FACP CCDS Ot 250.00 06/30/2015 GAGE MARSHALL FACC, ALI FACP CCDS Ot 272.4 06/30/2015 GAGE MARSHALL FACC, ALI FACP CCDS Ot 278.00 06/30/2015 GAGE MARSHALL FACC, ALI FACP CCDS Ot 327.23 06/30/2015 GAGE MARSHALL FACC, ALI FACP CCDS Ot 414.00 06/30/2015 GAGE MARSHALL FACC, ALI FACP CCDS Ot 496 06/30/2015 GAGE MARSHALL FACC, ALI FACP CCDS Ot 729.5 06/30/2015 RICKEY ROTH 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 Ot 414.00 06/30/2015 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 Ot 785.1 06/30/2015 ZELALEM SUMMERS DO Ot 278.00 06/30/2015 ZELALEM SUMMERS DO Ot 327.23 06/30/2015 ZELALEM SUMMERS DO Ot 493.90 06/30/2015 GAGE MARSHALL [facility], ALI FACP CCDS Ot 250.60 06/30/2015 GAGE MARSHALL [facility], ALI FACP CCDS Ot 272.4 06/30/2015 GAGE MARSHALL [facility], ALI FACP CCDS Ot 278.00 06/30/2015 GAGE MARSHALL [facility], ALI FACP CCDS Ot 327.23 06/30/2015 GAGE MARSHALL [facility], ALI FACP CCDS Ot 357.2 06/30/2015 GAGE MARSHALL [facility], ALI FACP CCDS Ot 414.00 06/30/2015 GAGE MARSHALL [facility], ALI FACP CCDS Ot 433.10 06/30/2015 GAGE MARSHALL [facility], ALI FACP CCDS Ot 496 06/30/2015 COREY JUAREZ 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 Ot Z12.31 06/30/2015 GAGE MARSHALL [facility], ALI FACP CCDS Ot E11.9 06/30/2015 GAGE MARSHALL [facility], ALI FACP CCDS Ot E78.5 06/30/2015 PEEWEE MARSHALL, LEONELA Domingo Ot J98.8 06/30/2015 PEEWEE MARSHALL, LEONELA Domingo Ot T78.3XXA 06/30/2015 PEEWEE MARSHALL, LEONELA Domingo Ot Z01.818 06/30/2015 LEONELA VIDES MD Ot Z11.2 06/30/2015 ZELALEM SUMMERS DO Ot E66.9 06/30/2015 ZELALEM SUMMERS DO Ot G47.33 06/30/2015 ZELALEM SUMMERS DO Ot J38.3 06/30/2015 ZELALEM SUMMERS DO Ot J45.909 06/30/2015 DUSTIN ALTAMIRANO DO Ot 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 06/30/2015 DUSTIN ALTAMIRANO DO Ot Z87.891 PERSONAL HISTORY OF NICOTINE DEPENDENCE 06/30/2015 DUSTIN ALTAMIRANO DO Ot Z99.81 DEPENDENCE ON SUPPLEMENTAL OXYGEN 07/03/2015 DUSTIN ALTAMIRANO DO Ot J95.03 07/03/2015 DUSTIN ALTAMIRANO DO Ot Z87.891 07/03/2015 DUSTIN ALTAMIRANO DO Ot Z99.81 07/06/2015 COREY JUAREZ 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 Ot Z12.31 07/06/2015 GAGE MARSHALL [facility], ALI [facility] CCDS Ot E11.9 07/06/2015 GAGE MARSHALL FAC, ALI [facility] CCDS Ot E78.5 07/06/2015 PEEWEE MARSHALL, LEONELA Domingo Ot J98.8 07/06/2015 PEEWEE MARSHALL, LEONELA P Ot T78.3XXA 07/06/2015 PEEWEE MARSHALL, LEONELA P Ot Z01.818 07/06/2015 PEEWEE MARSHALL, LEONELA Domingo Ot Z11.2 07/06/2015 ZELALEM SUMMERS DO Ot E66.9 07/06/2015 ZELALEM SUMMERS DO Ot G47.33 07/06/2015 ZELALEM SUMMERS DO Ot J38.3 07/06/2015 ZELALEM SUMMERS DO Ot J45.909 07/07/2015 CRYSTAL SANTIAGO MD Ot E11.9 TYPE 2 DIABETES MELLITUS WITHOUT COMPLIC 07/07/2015 CRYSTAL SANTIAGO MD Ot E78.5 HYPERLIPIDEMIA, UNSPECIFIED 07/07/2015 CRYSTAL SANTIAGO MD Ot G62.9 POLYNEUROPATHY, UNSPECIFIED 07/07/2015 CRYSTAL SANTIAGO MD Ot I25.10 ATHSCL HEART DISEASE OF [place] CORONARY 07/07/2015 CRYSTAL SANTIAGO MD Ot J39.8 OTHER SPECIFIED DISEASES OF UPPER RESPIR 07/07/2015 CRYSTAL SANTIAGO MD Ot J44.9 CHRONIC OBSTRUCTIVE PULMONARY DISEASE, U 07/07/2015 CRYSTAL SANTIAGO MD Ot M79.7 FIBROMYALGIA 07/07/2015 CRYSTAL SANTIAGO MD Ot R09.02 HYPOXEMIA 07/07/2015 CRYSTAL SANTIAGO MD Ot Z93.0 TRACHEOSTOMY STATUS 07/07/2015 CRYSTAL SANTIAGO MD Ot E11.9 TYPE 2 DIABETES MELLITUS WITHOUT COMPLIC 07/07/2015 CRYSTAL SANTIAGO MD Ot E78.5 HYPERLIPIDEMIA, UNSPECIFIED 07/07/2015 CRYSTAL SANTIAGO MD Ot G62.9 POLYNEUROPATHY, UNSPECIFIED 07/07/2015 CRYSTAL SANTIAGO MD Ot I25.10 ATHSCL HEART DISEASE OF [place] CORONARY 07/07/2015 CRYSTAL SANTIAGO MD Ot J39.8 OTHER SPECIFIED DISEASES OF UPPER RESPIR 07/07/2015 CRYSTAL SANTIAGO MD Ot J44.9 CHRONIC OBSTRUCTIVE PULMONARY DISEASE, U 07/07/2015 CRYSTAL SANTIAGO MD Ot M79.7 FIBROMYALGIA 07/07/2015 CRYSTAL SANTIAGO MD Ot R09.02 HYPOXEMIA 07/07/2015 CRYSTAL SANTIAGO MD Ot Z93.0 TRACHEOSTOMY STATUS 07/08/2015 CRYSTAL SANTIAGO MD Ot E11.9 TYPE 2 DIABETES MELLITUS WITHOUT COMPLIC 07/08/2015 CRYSTAL SANTIAGO MD Ot E78.5 HYPERLIPIDEMIA, UNSPECIFIED 07/08/2015 CRYSTAL SANTIAGO MD Ot G62.9 POLYNEUROPATHY, UNSPECIFIED 07/08/2015 CRYSTAL SANTIAGO MD Ot I25.10 ATHSCL HEART DISEASE OF [place] CORONARY 07/08/2015 CRYSTAL SANTIAGO MD Ot J39.8 OTHER SPECIFIED DISEASES OF UPPER RESPIR 07/08/2015 CRYSTAL SANTIAGO MD Ot J44.9 CHRONIC OBSTRUCTIVE PULMONARY DISEASE, U 07/08/2015 CRYSTAL SANTIAGO MD Ot M79.7 FIBROMYALGIA 07/08/2015 CRYSTAL SANTIAGO MD Ot R09.02 HYPOXEMIA 07/08/2015 CRYSTAL SANTIAGO MD Ot Z93.0 TRACHEOSTOMY STATUS 07/09/2015 CRYSTAL SANTIAGO MD Ot E11.9 TYPE 2 DIABETES MELLITUS WITHOUT COMPLIC 07/09/2015 CRYSTAL SANTIAGO MD Ot E78.5 HYPERLIPIDEMIA, UNSPECIFIED 07/09/2015 CRYSTAL SANTIAGO MD Ot G62.9 POLYNEUROPATHY, UNSPECIFIED 07/09/2015 CRYSTAL SANTIAGO MD Ot I25.10 ATHSCL HEART DISEASE OF [place] CORONARY 07/09/2015 CRYSTAL SANTIAGO MD Ot J39.8 OTHER SPECIFIED DISEASES OF UPPER RESPIR 07/09/2015 CRYSTAL SANTIAGO MD Ot J44.9 CHRONIC OBSTRUCTIVE PULMONARY DISEASE, U 07/09/2015 JACK MARSHALL, CRYSTAL Perez Ot M79.7 FIBROMYALGIA 07/09/2015 CRYSTAL SANTIAGO MD Ot R09.02 HYPOXEMIA 07/09/2015 CRYSTAL SANTIAGO MD Ot Z93.0 TRACHEOSTOMY STATUS 10/09/2015 TRACY MARSHALL, WAGNER Castorena Ot 723.0 CERVICAL SPINAL STENOSIS 10/09/2015 TRACY MARSHALL, WAGNER Castorena Ot V72.63 PRE-PROCEDURAL LABORATORY EXAMINATION 10/09/2015 TRACY MARSHALL, WAGNER Castorena Ot V72.81 KJFT-LDL-NEILFZNUX CARDIOVASCULAR 10/09/2015 TRACY MARSHALL, WAGNER Castorena Ot V74.8 SCREEN-BACTERIAL DIS NEC 10/09/2015 TRACY MARSHALL, WAGNER Castorena Ot 486 PNEUMONIA, ORGANISM NOS 10/09/2015 RACHAEL MARSHALL, WILL Martin Ot 723.1 CERVICALGIA 10/09/2015 WILL CANO MD Ot 784.2 SWELLING IN HEAD NECK 10/09/2015 ZELALEM SUMMERS DO Ot 327.23 OBSTRUCTIVE SLEEP APNEA (ADULT) (PEDIATR 10/09/2015 ZELALEM SUMMERS DO Ot 493.20 CHRONIC OBSTRUCTIVE ASTHMA, NOS 10/09/2015 GAGE MARSHALL FACC, ALI FACP CCDS Ot 272.4 HYPERLIPIDEMIA NEC/NOS 10/09/2015 GAGE MARSHALL FACC, ALI FACP CCDS Ot 414.00 CORON ATHEROSCLER NOS TYPE VESSEL, NATIV 10/09/2015 BRYSON SCHERER APRN Ot V76.12 OTH SCREEN MAMMO-MALIGN NEOPLASM OF MELVIN 10/09/2015 LESLIE MARSHALL, FIFI Pedraza Ot 723.0 CERVICAL SPINAL STENOSIS 10/09/2015 RICKEY ROTH 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 Ot 272.4 HYPERLIPIDEMIA NEC/NOS 10/09/2015 GAGE MARSHALL FACC, ALI FACP CCDS Ot 250.00 DIAB AVELINA WO COMPL, TYPE II OR UNSPEC TY 10/09/2015 GAGE MARSHALL FACC, ALI FACP CCDS Ot 272.4 HYPERLIPIDEMIA NEC/NOS 10/09/2015 GAGE MARSHALL FACC, ALI FACP CCDS Ot 278.00 OBESITY, NOS 10/09/2015 GAGE MARSHALL FACC, ALI FACP CCDS Ot 327.23 OBSTRUCTIVE SLEEP APNEA (ADULT) (PEDIATR 10/09/2015 GAGE MARSHALL FACC, ALI FACP CCDS Ot 414.00 CORON ATHEROSCLER NOS TYPE VESSEL, NATIV 10/09/2015 GAGE MARSHALL FACC, ALI FACP CCDS Ot 496 CHR AIRWAY OBSTRUCT NEC 10/09/2015 GAGE MARSHALL FACC, ALI FACP CCDS Ot 729.5 PAIN IN LIMB 10/09/2015 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 Ot 414.00 CORON ATHEROSCLER NOS TYPE VESSEL, NATIV 10/09/2015 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 Ot 785.1 PALPITATIONS 10/09/2015 ZELALEM SUMMERS DO Ot 278.00 OBESITY, NOS 10/09/2015 ZELALEM SUMMERS DO Ot 327.23 OBSTRUCTIVE SLEEP APNEA (ADULT) (PEDIATR 10/09/2015 ZELALEM SUMMERS DO Ot 493.90 ASTHMA, UNSPECIFIED 10/09/2015 GAGE MARSHALL FACC, ALI FACP CCDS Ot 250.60 DIAB W NEURO MANIFEST, TYPE II OR UNSPEC 10/09/2015 GAGE MARSHALL FACC, ALI FACP CCDS Ot 272.4 HYPERLIPIDEMIA NEC/NOS 10/09/2015 GAGE MARSHALL FACC, ALI FACP CCDS Ot 278.00 OBESITY, NOS 10/09/2015 GAGE MARSHALL FACC, ALI FACP CCDS Ot 327.23 OBSTRUCTIVE SLEEP APNEA (ADULT) (PEDIATR 10/09/2015 GAGE MARSHALL FACC, ALI FACP CCDS Ot 357.2 NEUROPATHY IN DIABETES 10/09/2015 GAGE MARSHALL FACC, ALI FACP CCDS Ot 414.00 CORON ATHEROSCLER NOS TYPE VESSEL, NATIV 10/09/2015 GGAE MARSHALL FACC, ALI FACP CCDS Ot 433.10 CAROTID ARTERY OCCLUSION W O CEREBRAL IN 10/09/2015 GAGE MARSHALL FACC, SHRUTHI FACP CCDS Ot 496 CHR AIRWAY OBSTRUCT NEC 10/09/2015 LARRY COREY L 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 Ot Z12.31 ENCNTR SCREEN MAMMOGRAM FOR MALIGNANT NE 10/09/2015 GAGE MARSHALL FACC, SHRUTHI FACP CCDS Ot E11.9 TYPE 2 DIABETES MELLITUS WITHOUT COMPLIC 10/09/2015 GAGE MARSHALL FACC, ALI FACP CCDS Ot E78.5 HYPERLIPIDEMIA, UNSPECIFIED 10/09/2015 PEEWEE MARSHALL, LEONELA Domingo Ot J98.8 OTHER SPECIFIED RESPIRATORY DISORDERS 10/09/2015 LEONELA VIDES MD Ot T78.3XXA ANGIONEUROTIC EDEMA, INITIAL ENCOUNTER 10/09/2015 LEONELA VIDES MD, Ot Z01.818 ENCOUNTER FOR OTHER PREPROCEDURAL EXAMIN 10/09/2015 LEONELA VIDES MD Ot Z11.2 ENCOUNTER FOR SCREENING FOR OTHER BACTER 10/09/2015 ZELALEM SUMMERS DO Ot E66.9 OBESITY, UNSPECIFIED 10/09/2015 ZELALEM SUMMERS DO Ot G47.33 OBSTRUCTIVE SLEEP APNEA (ADULT) (PEDIATR 10/09/2015 ZELALEM SUMMERS DO Ot J38.3 OTHER DISEASES OF VOCAL CORDS 10/09/2015 ZELALEM SUMMERS DO Ot J45.909 UNSPECIFIED ASTHMA, UNCOMPLICATED 10/09/2015 RICKEY ROTH 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 Ot E78.5 HYPERLIPIDEMIA, UNSPECIFIED 10/09/2015 BUFFYMARICKEY 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 Ot E78.5 HYPERLIPIDEMIA, UNSPECIFIED 10/10/2015 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 Ot E78.5 HYPERLIPIDEMIA, UNSPECIFIED 10/11/2015 DELIA BROWER DO Ot R19.7 DIARRHEA, UNSPECIFIED 10/11/2015 DELIA BROWER DO Ot Z01.818 ENCOUNTER FOR OTHER PREPROCEDURAL EXAMIN 10/11/2015 DELIA BROWER DO Ot Z80.0 FAMILY HISTORY OF MALIGNANT NEOPLASM OF 10/11/2015 DELIA BROWER DO Ot Z86.010 PERSONAL HISTORY OF COLONIC POLYPS 10/12/2015 DELIA BROWER DO Ot R19.7 DIARRHEA, UNSPECIFIED 10/12/2015 DELIA BROWER DO Ot Z01.818 ENCOUNTER FOR OTHER PREPROCEDURAL EXAMIN 10/12/2015 DELIA BROWER DO Ot Z80.0 FAMILY HISTORY OF MALIGNANT NEOPLASM OF 10/12/2015 DELIA BROWER DO Ot Z86.010 PERSONAL HISTORY OF COLONIC POLYPS 10/17/2015 DELIA BROWER DO Ot D12.3 BENIGN NEOPLASM OF TRANSVERSE COLON 10/17/2015 DELIA BROWER DO Ot E11.9 TYPE 2 DIABETES MELLITUS WITHOUT COMPLIC 10/17/2015 DELIA BROWER DO Ot K63.5 POLYP OF COLON 10/17/2015 DELIA BROWER DO Ot K64.9 UNSPECIFIED HEMORRHOIDS 10/17/2015 DELIA BROWER DO Ot R19.7 DIARRHEA, UNSPECIFIED 10/17/2015 DELIA BROWER DO Ot Z80.0 FAMILY HISTORY OF MALIGNANT NEOPLASM OF 10/17/2015 DELIA BROWER DO Ot Z86.010 PERSONAL HISTORY OF COLONIC POLYPS 10/24/2015 DELIA BROWER DO Ot D12.3 BENIGN NEOPLASM OF TRANSVERSE COLON 10/24/2015 DELIA BROWER DO Ot E11.9 TYPE 2 DIABETES MELLITUS WITHOUT COMPLIC 10/24/2015 DELIA BROWER DO Ot K64.9 UNSPECIFIED HEMORRHOIDS 10/24/2015 DELIA BROWER DO Ot R19.7 DIARRHEA, UNSPECIFIED 10/24/2015 DELIA BROWER DO Ot Z80.0 FAMILY HISTORY OF MALIGNANT NEOPLASM OF 10/24/2015 DELIA BROWER DO Ot Z86.010 PERSONAL HISTORY OF COLONIC POLYPS 11/03/2015 RICKEY ROTH 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 Ot E78.5 HYPERLIPIDEMIA, UNSPECIFIED 11/09/2015 RICKEY ROTH 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 Ot E78.5 HYPERLIPIDEMIA, UNSPECIFIED 01/26/2016 WAGNER MOLINA MD Ot 723.0 CERVICAL SPINAL STENOSIS 01/26/2016 WAGNER MOLINA MD Ot V72.63 PRE-PROCEDURAL LABORATORY EXAMINATION 01/26/2016 WAGNER MOLINA MD Ot V72.81 [id number] CARDIOVASCULAR 01/26/2016 WAGNER MOLINA MD Ot V74.8 SCREEN-BACTERIAL DIS NEC 01/26/2016 WAGNER MOLINA MD Ot 486 PNEUMONIA, ORGANISM NOS 01/26/2016 WILL CANO MD Ot 723.1 CERVICALGIA 01/26/2016 WILL CANO MD Ot 784.2 SWELLING IN HEAD NECK 01/26/2016 ZELALEM SUMMERS DO Ot 327.23 OBSTRUCTIVE SLEEP APNEA (ADULT) (PEDIATR 01/26/2016 ZELALEM SUMMERS DO Ot 493.20 CHRONIC OBSTRUCTIVE ASTHMA, NOS 01/26/2016 GAGE MARSHALL FACTess, SHRUTHI PACKERP CCDS Ot 272.4 HYPERLIPIDEMIA NEC/NOS 01/26/2016 GAGE MARSHALL FAC, ALI FACP CCDS Ot 414.00 CORON ATHEROSCLER NOS TYPE VESSEL, NATIV 01/26/2016 BRYSON SCHERER APRN Ot V76.12 OTH SCREEN MAMMO-MALIGN NEOPLASM OF [place] 01/26/2016 FIFI NELSON MD Ot 723.0 CERVICAL SPINAL STENOSIS 01/26/2016 RICKEY ROTH 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 Ot 272.4 HYPERLIPIDEMIA NEC/NOS 01/26/2016 GAGE MARSHALL FACC, SHRUTHI FACP CCDS Ot 250.00 DIAB AVELINA WO COMPL, TYPE II OR UNSPEC TY 01/26/2016 GAGE MARSHALL FACC, ALI FACP CCDS Ot 272.4 HYPERLIPIDEMIA NEC/NOS 01/26/2016 GAGE MARSHALL FACC, ALI FACP CCDS Ot 278.00 OBESITY, NOS 01/26/2016 GAGE MARSHALL FACC, ALI FACP CCDS Ot 327.23 OBSTRUCTIVE SLEEP APNEA (ADULT) (PEDIATR 01/26/2016 GAGE MARSHALL FACC, ALI FACP CCDS Ot 414.00 CORON ATHEROSCLER NOS TYPE VESSEL, NATIV 01/26/2016 GAGE MARSHALL FACC, SHRUTHI FACP CCDS Ot 496 CHR AIRWAY OBSTRUCT NEC 01/26/2016 GAGE MARSHALL FACC, ALI FACP CCDS Ot 729.5 PAIN IN LIMB 01/26/2016 RICKEY ROTH 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 Ot 414.00 CORON ATHEROSCLER NOS TYPE VESSEL, NATIV 01/26/2016 RICKEY ROTH 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 Ot 785.1 PALPITATIONS 01/26/2016 ZELALEM SUMMERS DO Ot 278.00 OBESITY, NOS 01/26/2016 ZELALEM SUMMERS DO Ot 327.23 OBSTRUCTIVE SLEEP APNEA (ADULT) (PEDIATR 01/26/2016 ZELALEM SUMMERS DO Ot 493.90 ASTHMA, UNSPECIFIED 01/26/2016 GAGE MARSHALL FACC, SHRUTHI FACP CCDS Ot 250.60 DIAB W NEURO MANIFEST, TYPE II OR UNSPEC 01/26/2016 GAGE MARSHALL FACC, SHRUTHI FACP CCDS Ot 272.4 HYPERLIPIDEMIA NEC/NOS 01/26/2016 GAGE MARSHALL FACC, ALI FACP CCDS Ot 278.00 OBESITY, NOS 01/26/2016 GAGE MARSHALL FACC, ALI FACP CCDS Ot 327.23 OBSTRUCTIVE SLEEP APNEA (ADULT) (PEDIATR 01/26/2016 GAGE MARSHALL FACC, ALI FACP CCDS Ot 357.2 NEUROPATHY IN DIABETES 01/26/2016 GAGE MARSHALL FACC, ALI FACP CCDS Ot 414.00 CORON ATHEROSCLER NOS TYPE VESSEL, NATIV 01/26/2016 GAGE MARSHALL FACC, ALI FACP CCDS Ot 433.10 CAROTID ARTERY OCCLUSION W O CEREBRAL IN 01/26/2016 GAGE MARSHALL FACC, SHRUTHI FACP CCDS Ot 496 CHR AIRWAY OBSTRUCT NEC 01/26/2016 COREY JUAREZ 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 Ot Z12.31 ENCNTR SCREEN MAMMOGRAM FOR MALIGNANT NE 01/26/2016 GAGE MARSHALL FACC, SHRUTHI FACP CCDS Ot E11.9 TYPE 2 DIABETES MELLITUS WITHOUT COMPLIC 01/26/2016 GAGE MARSHALL FACC, SHRUTHI PACKERP CCDS Ot E78.5 HYPERLIPIDEMIA, UNSPECIFIED 01/26/2016 LEONELA VIDES MD Ot J98.8 OTHER SPECIFIED RESPIRATORY DISORDERS 01/26/2016 LEONELA VIDES MD Ot T78.3XXA ANGIONEUROTIC EDEMA, INITIAL ENCOUNTER 01/26/2016 LEONELA VIDES MD Ot Z01.818 ENCOUNTER FOR OTHER PREPROCEDURAL EXAMIN 01/26/2016 LEONELA VIDES MD Ot Z11.2 ENCOUNTER FOR SCREENING FOR OTHER BACTER 01/26/2016 ZELALEM SUMMERS DO Ot E66.9 OBESITY, UNSPECIFIED 01/26/2016 ZELALEM SUMMERS DO Ot G47.33 OBSTRUCTIVE SLEEP APNEA (ADULT) (PEDIATR 01/26/2016 ZELALEM SUMMERS DO Ot J38.3 OTHER DISEASES OF VOCAL CORDS 01/26/2016 ZELALEM SUMMERS DO Ot J45.909 UNSPECIFIED ASTHMA, UNCOMPLICATED 01/26/2016 RICKEY ROTH 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 Ot E78.5 HYPERLIPIDEMIA, UNSPECIFIED 02/06/2016 GAGE MARSHALL FACC, SHRUTHI FACP CCDS Ot E11.9 TYPE 2 DIABETES MELLITUS WITHOUT COMPLIC 02/06/2016 GAGE MARSHALL FACC, SHRUTHI FACP CCDS Ot E66.9 OBESITY, UNSPECIFIED 02/06/2016 GAGE MARSHALL FACC, SHRUTHI FACP CCDS Ot E78.1 PURE HYPERGLYCERIDEMIA 02/06/2016 SHRUTHI MANUEL MD, FACC FACP CCDS Ot I25.10 ATHSCL HEART DISEASE OF [place] CORONARY 02/06/2016 SHRUTHI MANUEL MD, FACC FACP CCDS Ot J44.9 CHRONIC OBSTRUCTIVE PULMONARY DISEASE, U 02/06/2016 SHRUTHI MANUEL MD, FACC FACP CCDS Ot R06.02 SHORTNESS OF BREATH 02/06/2016 GAGE MARSHALL FACC, SHRUTHI FACP CCDS Ot Z68.36 BODY MASS INDEX (BMI) 36.0-36.9 , ADULT 02/06/2016 SHRUTHI MANUEL MD, FACC FACP CCDS Ot Z79.899 OTHER CAMERA PERSON (CURRENT) DRUG THERAPY 02/06/2016 GAGE MARSHALL FACC, SHRUTHI FORDE CCDS Ot Z87.891 PERSONAL HISTORY OF NICOTINE DEPENDENCE 02/06/2016 GAGE MARSHALL FACC, SHRUTHI FORDE CCDS Ot Z95.5 PRESENCE OF CORONARY ANGIOPLASTY IMPLANT 02/08/2016 BAIMA, RICKEY L 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 Ot R06.09 OTHER FORMS OF DYSPNEA 02/08/2016 BAIMA, RICKEY L 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 Ot R06.09 OTHER FORMS OF DYSPNEA 02/09/2016 BAIMA, RICKEY L 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 Ot I25.10 ATHSCL HEART DISEASE OF [place] CORONARY 02/09/2016 BAIMA, RICKEY L 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 Ot I65.23 OCCLUSION AND STENOSIS OF BILATERAL DYE 02/09/2016 BAIMA, RICKEY L 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 Ot J44.9 CHRONIC OBSTRUCTIVE PULMONARY DISEASE, U 02/09/2016 BAIMA, RICKEY L 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 Ot R00.0 TACHYCARDIA, UNSPECIFIED 02/09/2016 BAIMA, RICKEY L 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 Ot R06.09 OTHER FORMS OF DYSPNEA 02/09/2016 BAIMA, RICKEY L 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 Ot I25.10 ATHSCL HEART DISEASE OF [place] CORONARY 02/09/2016 BAIMA, RICKEY L 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 Ot I65.23 OCCLUSION AND STENOSIS OF BILATERAL DYE 02/09/2016 BAIMA, RICKEY L 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 Ot J44.9 CHRONIC OBSTRUCTIVE PULMONARY DISEASE, U 02/09/2016 BAIMA, RICKEY L 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 Ot R00.0 TACHYCARDIA, UNSPECIFIED 02/09/2016 BAIMA, RICKEY L 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 Ot R06.09 OTHER FORMS OF DYSPNEA 02/20/2016 BAIMA, RICKEY L 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 Ot E78.5 HYPERLIPIDEMIA, UNSPECIFIED 02/20/2016 BAIMA, RICKEY L 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 Ot I25.10 ATHSCL HEART DISEASE OF [place] CORONARY 02/26/2016 BAIMA, RICKEY L 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 Ot E78.5 HYPERLIPIDEMIA, UNSPECIFIED 02/26/2016 BAIMA, RICKEY L 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 Ot I25.10 ATHSCL HEART DISEASE OF [place] CORONARY 02/27/2016 MADDaxa COREY L 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 Ot Z12.31 ENCNTR SCREEN MAMMOGRAM FOR MALIGNANT NE 02/28/2016 LARRY COREY L 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 Ot Z12.31 ENCNTR SCREEN MAMMOGRAM FOR MALIGNANT NE 02/28/2016 COREY JUAREZ 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 Ot Z12.31 ENCNTR SCREEN MAMMOGRAM FOR MALIGNANT NE 02/29/2016 BAIMA, RICKEY L 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 Ot E78.4 OTHER HYPERLIPIDEMIA 02/29/2016 BAIMA, RICKEY L 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 Ot G47.33 OBSTRUCTIVE SLEEP APNEA (ADULT) ( PEDIATR 02/29/2016 BAIMA, RICKEY L 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 Ot I25.10 ATHSCL HEART DISEASE OF [place] CORONARY 02/29/2016 BAIMA, RICKEY L 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 Ot I65.23 OCCLUSION AND STENOSIS OF BILATERAL DYE 02/29/2016 BAIMA, RICKEY L 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 Ot R00.2 PALPITATIONS 02/29/2016 BAIMA, RICKEY L 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 Ot E78.4 OTHER HYPERLIPIDEMIA 02/29/2016 BAIMA, RICKEY L 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 Ot G47.33 OBSTRUCTIVE SLEEP APNEA (ADULT) ( PEDIATR 02/29/2016 BAIMA, RICKEY L 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 Ot I25.10 ATHSCL HEART DISEASE OF [place] CORONARY 02/29/2016 BAIMA, RICKEY L 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 Ot I65.23 OCCLUSION AND STENOSIS OF BILATERAL DYE 02/29/2016 BAIMA, RICKEY L 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 Ot R00.2 PALPITATIONS 02/29/2016 BAIMA, RICKEY L 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 Ot E78.4 OTHER HYPERLIPIDEMIA 02/29/2016 BAIMA, RICKEY L 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 Ot G47.33 OBSTRUCTIVE SLEEP APNEA (ADULT) ( PEDIATR 02/29/2016 BAIMA, RICKEY L 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 Ot I25.10 ATHSCL HEART DISEASE OF [place] CORONARY 02/29/2016 BAIMA, RICKEY L 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 Ot I65.23 OCCLUSION AND STENOSIS OF BILATERAL DYE 02/29/2016 BAIMA, RICKEY L 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 Ot R00.2 PALPITATIONS 03/06/2016 BAIMA, RICKEY L 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 Ot I25.10 ATHSCL HEART DISEASE OF [place] CORONARY 03/06/2016 BAIMA, RICKEY L 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 Ot I65.23 OCCLUSION AND STENOSIS OF BILATERAL DYE 03/06/2016 BAIMA, RICKEY L 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 Ot J44.9 CHRONIC OBSTRUCTIVE PULMONARY DISEASE, U 03/06/2016 BAIMA, RICKEY L 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 Ot R00.0 TACHYCARDIA, UNSPECIFIED 03/06/2016 BAIMA, RICKEY L 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 Ot R06.09 OTHER FORMS OF DYSPNEA 03/07/2016 GAGE MARHSALL FACC, ALI FACP CCDS Ot E11.9 TYPE 2 DIABETES MELLITUS WITHOUT COMPLIC 03/07/2016 GAGE MARSHALL FACC, ALI FACP CCDS Ot E66.9 OBESITY, UNSPECIFIED 03/07/2016 GAGE MARSHALL FACC, ALI FACP CCDS Ot E78.1 PURE HYPERGLYCERIDEMIA 03/07/2016 GAGE MARSHALL FACC, ALI FACP CCDS Ot I25.10 ATHSCL HEART DISEASE OF [place] CORONARY 03/07/2016 GAGE MARSHALL FACC, ALI FACP CCDS Ot J44.9 CHRONIC OBSTRUCTIVE PULMONARY DISEASE, U 03/07/2016 GAGE MARSHALL FACC, ALI FACP CCDS Ot R06.02 SHORTNESS OF BREATH 03/07/2016 GAGE MARSHALL FACC, ALI FACP CCDS Ot Z68.36 BODY MASS INDEX (BMI) 36.0-36.9 , ADULT 03/07/2016 GAGE MARSHALL FACC, ALI FACP CCDS Ot Z79.899 OTHER INTERMEDIATE (CURRENT) DRUG THERAPY 03/07/2016 GAGE MARSHALL FACC, ALI FACP CCDS Ot Z87.891 PERSONAL HISTORY OF NICOTINE DEPENDENCE 03/07/2016 GAGE MARSHALL FACC, ALI FACP CCDS Ot Z95.5 PRESENCE OF CORONARY ANGIOPLASTY IMPLANT 03/13/2016 RICKEY ROTH 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 Ot I25.10 ATHSCL HEART DISEASE OF [place] CORONARY 03/13/2016 RICKEY ROTH 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 Ot I65.23 OCCLUSION AND STENOSIS OF BILATERAL DYE 03/13/2016 RICKEY ROTH 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 Ot J44.9 CHRONIC OBSTRUCTIVE PULMONARY DISEASE, U 03/13/2016 RICKEY ROTH 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 Ot R00.0 TACHYCARDIA, UNSPECIFIED 03/13/2016 RICKEY ROTH L 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 Ot R06.09 OTHER FORMS OF DYSPNEA 03/22/2016 MADCOREY Mittal 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 Ot Z12.31 ENCNTR SCREEN MAMMOGRAM FOR MALIGNANT NE 03/28/2016 MILYLCOREY L 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 Ot Z12.31 ENCNTR SCREEN MAMMOGRAM FOR MALIGNANT NE 05/14/2016 RICKEY ROTH L 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 Ot E78.4 OTHER HYPERLIPIDEMIA 05/14/2016 RICKEY ROTH L 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 Ot G47.33 OBSTRUCTIVE SLEEP APNEA (ADULT) ( PEDIATR 05/14/2016 BAIMA, RICKEY L 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 Ot I25.10 ATHSCL HEART DISEASE OF [place] CORONARY 05/14/2016 BAIMA, RICKEY L 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 Ot I65.23 OCCLUSION AND STENOSIS OF BILATERAL DYE 05/14/2016 BAIMA, RICKEY L 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 Ot R00.2 PALPITATIONS 05/16/2016 BAIMA, RICKEY L 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 Ot E78.4 OTHER HYPERLIPIDEMIA 05/16/2016 BAIMA, RICKEY L 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 Ot G47.33 OBSTRUCTIVE SLEEP APNEA (ADULT) ( PEDIATR 05/16/2016 BAIMA, RICKEY L 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 Ot I25.10 ATHSCL HEART DISEASE OF [place] CORONARY 05/16/2016 BAIMA, RICKEY L 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 Ot I65.23 OCCLUSION AND STENOSIS OF BILATERAL DYE 05/16/2016 BAIMA, RICKEY L 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 Ot R00.2 PALPITATIONS 05/27/2016 BAIMA, RICKEY L 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 Ot E78.4 OTHER HYPERLIPIDEMIA 05/27/2016 BAIMA, RICKEY L 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 Ot G47.33 OBSTRUCTIVE SLEEP APNEA (ADULT) ( PEDIATR 05/27/2016 BAIMA, RICKEY L 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 Ot I25.10 ATHSCL HEART DISEASE OF [place] CORONARY 05/27/2016 BAIMA, RIKCEY L 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 Ot I65.23 OCCLUSION AND STENOSIS OF BILATERAL DYE 05/27/2016 BAIMA, RICKEY L 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 Ot R00.2 PALPITATIONS 06/26/2016 BAIMA, RICKEY L 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 Ot E11.9 TYPE 2 DIABETES MELLITUS WITHOUT COMPLIC 06/26/2016 BAIMA, RICKEY L 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 Ot E66.09 OTHER OBESITY DUE TO EXCESS CALORIES 06/26/2016 BAIMA, RICKEY L 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 Ot E78.4 OTHER HYPERLIPIDEMIA 06/26/2016 BAIMA, RICKEY L 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 Ot G47.33 OBSTRUCTIVE SLEEP APNEA (ADULT) ( PEDIATR 06/26/2016 BAIMA, RICKEY L 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 Ot I25.10 ATHSCL HEART DISEASE OF [place] CORONARY 06/26/2016 BAIMA, RICKEY L 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 Ot I65.23 OCCLUSION AND STENOSIS OF BILATERAL DYE 06/26/2016 BAIMA, RICKEY L 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 Ot J43.8 OTHER EMPHYSEMA 06/26/2016 BAIMA, RICKEY L 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 Ot R26.89 OTHER ABNORMALITIES OF GAIT AND MOBILITY 06/26/2016 BAIMA, RICKEY L 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 Ot E11.9 TYPE 2 DIABETES MELLITUS WITHOUT COMPLIC 06/26/2016 GONZALEZ RICKEYHER Daxa WATSON Ot E66.09 OTHER OBESITY DUE TO EXCESS CALORIES 06/26/2016 RICKEY ROTHP Ot E78.4 OTHER HYPERLIPIDEMIA 06/26/2016 GONZALEZ RICKEYHER Daxa AUGUSTEP Ot G47.33 OBSTRUCTIVE SLEEP APNEA (ADULT) ( PEDIATR 06/26/2016 GONZALEZ RICKEYHER Daxa WATSON Ot I25.10 ATHSCL HEART DISEASE OF [place] CORONARY 06/26/2016 RICKEY ROTH Ot I65.23 OCCLUSION AND STENOSIS OF BILATERAL DYE 06/26/2016 RICKEY ROTH Ot J43.8 OTHER EMPHYSEMA 06/26/2016 IRCKEY ROTH Ot R26.89 OTHER ABNORMALITIES OF GAIT AND MOBILITY 07/17/2016 LOVE MARSHALL, LEONELA Domingo Ot M65.4 RADIAL STYLOID TENOSYNOVITIS [DE QUERVAI 07/17/2016 LOVE MARSHALL, LEONELA Domingo Ot Z01.818 ENCOUNTER FOR OTHER PREPROCEDURAL EXAMIN 07/17/2016 LEONELA ALEMAN MD Ot Z11.2 ENCOUNTER FOR SCREENING FOR OTHER BACTER 07/23/2016 TRISTAN CAMARILLO DO Ot E11.9 TYPE 2 DIABETES MELLITUS WITHOUT COMPLIC 07/23/2016 TRISTAN CAMARILLO DO, Ot I10 ESSENTIAL (PRIMARY) HYPERTENSION 07/23/2016 TRISTAN CAMARILLO DO, Ot I25.10 ATHSCL HEART DISEASE OF [place] CORONARY 07/23/2016 TRISTAN CAMARILLO DO, Ot J44.9 CHRONIC OBSTRUCTIVE PULMONARY DISEASE, U 07/23/2016 TRISTAN CAMARILLO DO, Ot R10.13 EPIGASTRIC PAIN 07/23/2016 TRISTAN CAMARILLO DO, Ot R11.10 VOMITING, UNSPECIFIED 07/23/2016 TRISTAN CAMARILLO DO, Ot Z79.82 INTERMEDIATE (CURRENT) USE OF ASPIRIN 07/23/2016 TRISTAN CAMARILLO DO, Ot Z79.84 INTERMEDIATE (CURRENT) USE OF ORAL HYPOGLYC 07/23/2016 TRISTAN CAMARILLO DO, Ot Z79.899 OTHER INTERMEDIATE (CURRENT) DRUG THERAPY 07/23/2016 TRISTAN CAMARILLO DO Ot Z95.5 PRESENCE OF CORONARY ANGIOPLASTY IMPLANT 07/23/2016 COREY JUAREZ Ot Z12.31 ENCNTR SCREEN MAMMOGRAM FOR MALIGNANT NE 07/23/2016 GAGE MARSHALL [facility], SHRUTHI FORDE CCDS Ot E11.9 TYPE 2 DIABETES MELLITUS WITHOUT COMPLIC 07/23/2016 GAGE MARSHALL [facility], SHRUTHI FORDE CCDS Ot E78.5 HYPERLIPIDEMIA, UNSPECIFIED 07/23/2016 LEONELA VIDES MD Ot J98.8 OTHER SPECIFIED RESPIRATORY DISORDERS 07/23/2016 LEONELA VIDES MD Ot T78.3XXA ANGIONEUROTIC EDEMA, INITIAL ENCOUNTER 07/23/2016 LEONELA VIDES MD Ot Z01.818 ENCOUNTER FOR OTHER PREPROCEDURAL EXAMIN 07/23/2016 LEONELA VIDES MD Ot Z11.2 ENCOUNTER FOR SCREENING FOR OTHER BACTER 07/23/2016 ZELALEM SUMMERS DO Ot E66.9 OBESITY, UNSPECIFIED 07/23/2016 ZELALEM SUMMERS DO Ot G47.33 OBSTRUCTIVE SLEEP APNEA (ADULT) (PEDIATR 07/23/2016 ZELALEM SUMMERS DO Ot J38.3 OTHER DISEASES OF VOCAL CORDS 07/23/2016 ZELALEM SUMMERS DO, Ot J45.909 UNSPECIFIED ASTHMA, UNCOMPLICATED 07/23/2016 BUFFYMA RICKEY L 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 Ot E78.5 HYPERLIPIDEMIA, UNSPECIFIED 07/23/2016 BAIMA, RICKEY L 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 Ot E78.5 HYPERLIPIDEMIA, UNSPECIFIED 07/23/2016 BAIMA, RICKEY L 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 Ot I25.10 ATHSCL HEART DISEASE OF [place] CORONARY 07/23/2016 BAIMA, RICKEY L 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 Ot I25.10 ATHSCL HEART DISEASE OF [place] CORONARY 07/23/2016 BAIMA RICKEY L 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 Ot I65.23 OCCLUSION AND STENOSIS OF BILATERAL DYE 07/23/2016 BUFFYMA RICKEY L 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 Ot J44.9 CHRONIC OBSTRUCTIVE PULMONARY DISEASE, U 07/23/2016 BAIMA, RICKEY L 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 Ot R00.0 TACHYCARDIA, UNSPECIFIED 07/23/2016 BAIMA, RICKEY L 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 Ot R06.09 OTHER FORMS OF DYSPNEA 07/23/2016 COREY JUAREZ 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 Ot Z12.31 ENCNTR SCREEN MAMMOGRAM FOR MALIGNANT NE 07/23/2016 BUFFYMA RICKEY L 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 Ot E78.4 OTHER HYPERLIPIDEMIA 07/23/2016 BUFFYMA RICKEY L 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 Ot G47.33 OBSTRUCTIVE SLEEP APNEA (ADULT) ( PEDIATR 07/23/2016 RICKEY ROTH L 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 Ot I25.10 ATHSCL HEART DISEASE OF [place] CORONARY 07/23/2016 RICKEY ROTH L 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 Ot I65.23 OCCLUSION AND STENOSIS OF BILATERAL DYE 07/23/2016 GONZALEZ RICKEY L 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 Ot R00.2 PALPITATIONS 07/23/2016 GONZALEZ RICKEY L 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 Ot E11.9 TYPE 2 DIABETES MELLITUS WITHOUT COMPLIC 07/23/2016 GONZALEZ RICKEY L 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 Ot E66.09 OTHER OBESITY DUE TO EXCESS CALORIES 07/23/2016 GONZALEZ RICKEY L 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 Ot E78.4 OTHER HYPERLIPIDEMIA 07/23/2016 BAIYRAELI RICKEY L 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 Ot G47.33 OBSTRUCTIVE SLEEP APNEA (ADULT) ( PEDIATR 07/23/2016 BAIRICKEY DOWNS L 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 Ot I25.10 ATHSCL HEART DISEASE OF [place] CORONARY 07/23/2016 GONZALEZ RICKEY L 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 Ot I65.23 OCCLUSION AND STENOSIS OF BILATERAL DYE 07/23/2016 BUFFYYARELI RICKEY L 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 Ot J43.8 OTHER EMPHYSEMA 07/23/2016 GONZALEZ RICKEY L 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 Ot R26.89 OTHER ABNORMALITIES OF GAIT AND MOBILITY 07/24/2016 LEONELA ALEMAN MD Ot E11.9 TYPE 2 DIABETES MELLITUS WITHOUT COMPLIC 07/24/2016 LEONELA ALEMAN MD Ot F32.9 MAJOR DEPRESSIVE DISORDER, SINGLE EPISOD 07/24/2016 LEONELA ALEMAN MD Ot I10 ESSENTIAL (PRIMARY) HYPERTENSION 07/24/2016 LEONELA ALEMAN MD Ot I25.10 ATHSCL HEART DISEASE OF [place] CORONARY 07/24/2016 LEONELA ALEMAN MD Ot J44.9 CHRONIC OBSTRUCTIVE PULMONARY DISEASE, U 07/24/2016 LEONELA ALEMAN MD Ot M06.9 RHEUMATOID ARTHRITIS, UNSPECIFIED 07/24/2016 LEONELA ALEMAN MD, Ot M65.4 RADIAL STYLOID TENOSYNOVITIS [DE QUERVAI 07/24/2016 LEONELA ALEMAN MD Ot M79.1 MYALGIA 07/24/2016 LEONELA ALEMAN MD, Ot Z79.899 OTHER INTERMEDIATE (CURRENT) DRUG THERAPY 07/24/2016 LEONELA ALEMAN MD Ot Z87.891 PERSONAL HISTORY OF NICOTINE DEPENDENCE 07/24/2016 LEONELA ALEMAN MD, Ot Z95.5 PRESENCE OF CORONARY ANGIOPLASTY IMPLANT 07/25/2016 LEONELA ALEMAN MD Ot E11.9 TYPE 2 DIABETES MELLITUS WITHOUT COMPLIC 07/25/2016 LEONELA ALEMAN MD, Ot F32.9 MAJOR DEPRESSIVE DISORDER, SINGLE EPISOD 07/25/2016 LEONELA ALEMAN MD Ot I10 ESSENTIAL (PRIMARY) HYPERTENSION 07/25/2016 LEONELA ALEMAN MD, Ot I25.10 ATHSCL HEART DISEASE OF [place] CORONARY 07/25/2016 LEONELA ALEMAN MD, Ot J44.9 CHRONIC OBSTRUCTIVE PULMONARY DISEASE, U 07/25/2016 LEONELA ALEMAN MD, Ot M06.9 RHEUMATOID ARTHRITIS, UNSPECIFIED 07/25/2016 LEONELA ALEMAN MD, Ot M65.4 RADIAL STYLOID TENOSYNOVITIS [DE QUERVAI 07/25/2016 LEONELA ALEMAN MD Ot M79.1 MYALGIA 07/25/2016 LEONELA ALEMAN MD, Ot Z79.899 OTHER CAMERA PERSON (CURRENT) DRUG THERAPY 07/25/2016 LEONELA ALEMAN MD, Ot Z87.891 PERSONAL HISTORY OF NICOTINE DEPENDENCE 07/25/2016 LEONELA ALEMAN MD, Ot Z95.5 PRESENCE OF CORONARY ANGIOPLASTY IMPLANT 07/28/2016 TRISTAN CAMARILLO DO, Ot E11.9 TYPE 2 DIABETES MELLITUS WITHOUT COMPLIC 07/28/2016 TRISTAN CAMARILLO DO, Ot I10 ESSENTIAL (PRIMARY) HYPERTENSION 07/28/2016 TRISTAN CAMARILLO DO, Ot I25.10 ATHSCL HEART DISEASE OF [place] CORONARY 07/28/2016 TRISTAN CAMARILLO DO, Ot J44.9 CHRONIC OBSTRUCTIVE PULMONARY DISEASE, U 07/28/2016 TRISTAN CAMARILLO DO, Ot R10.13 EPIGASTRIC PAIN 07/28/2016 TRISTAN CAMARILLO DO, Ot R11.10 VOMITING, UNSPECIFIED 07/28/2016 TRISTAN CAMARILLO DO, Ot Z79.82 INTERMEDIATE (CURRENT) USE OF ASPIRIN 07/28/2016 TRISTAN CAMARILLO DO, Ot Z79.84 CAMERA PERSON (CURRENT) USE OF ORAL HYPOGLYC 07/28/2016 TRISTAN CAMARILLO DO, Ot Z79.899 OTHER INTERMEDIATE (CURRENT) DRUG THERAPY 07/28/2016 TRISTAN CAMARILLO DO, Ot Z95.5 PRESENCE OF CORONARY ANGIOPLASTY IMPLANT 07/30/2016 LEONELA ALEMAN MD Ot E11.9 TYPE 2 DIABETES MELLITUS WITHOUT COMPLIC 07/30/2016 LEONELA ALEMAN MD Ot F32.9 MAJOR DEPRESSIVE DISORDER, SINGLE EPISOD 07/30/2016 LEONELA ALEMAN MD Ot I10 ESSENTIAL (PRIMARY) HYPERTENSION 07/30/2016 LEONELA ALEMAN MD Ot I25.10 ATHSCL HEART DISEASE OF [place] CORONARY 07/30/2016 LEONELA ALEMAN MD Ot J44.9 CHRONIC OBSTRUCTIVE PULMONARY DISEASE, U 07/30/2016 LEONELA ALEMAN MD Ot M06.9 RHEUMATOID ARTHRITIS, UNSPECIFIED 07/30/2016 LEONELA ALEMAN MD Ot M65.4 RADIAL STYLOID TENOSYNOVITIS [DE [place] 07/30/2016 LEONELA ALEMAN MD Ot M79.1 MYALGIA 07/30/2016 LEONELA ALEMAN MD Ot Z79.899 OTHER INTERMEDIATE (CURRENT) DRUG THERAPY 07/30/2016 LEONELA ALEMAN MD Ot Z87.891 PERSONAL HISTORY OF NICOTINE DEPENDENCE 07/30/2016 LEONELA ALEMAN MD Ot Z95.5 PRESENCE OF CORONARY ANGIOPLASTY IMPLANT 07/31/2016 LEONELA ALEMAN MD Ot E11.9 TYPE 2 DIABETES MELLITUS WITHOUT COMPLIC 07/31/2016 LEONELA ALEMAN MD, Ot F32.9 MAJOR DEPRESSIVE DISORDER, SINGLE EPISOD 07/31/2016 LEONELA ALEMAN MD Ot I10 ESSENTIAL (PRIMARY) HYPERTENSION 07/31/2016 LEONELA ALEMAN MD Ot I25.10 ATHSCL HEART DISEASE OF [place] CORONARY 07/31/2016 LEONELA ALEMAN MD Ot J44.9 CHRONIC OBSTRUCTIVE PULMONARY DISEASE, U 07/31/2016 LEONELA ALEMAN MD Ot M06.9 RHEUMATOID ARTHRITIS, UNSPECIFIED 07/31/2016 LEONELA ALEMAN MD Ot M65.4 RADIAL STYLOID TENOSYNOVITIS [DE QU[place] 07/31/2016 LEONELA ALEMAN MD Ot M79.1 MYALGIA 07/31/2016 LEONELA ALEMAN MD Ot Z79.899 OTHER CAMERA PERSON (CURRENT) DRUG THERAPY 07/31/2016 LEONELA ALEMAN MD Ot Z87.891 PERSONAL HISTORY OF NICOTINE DEPENDENCE 07/31/2016 LEONELA ALEMAN MD Ot Z95.5 PRESENCE OF CORONARY ANGIOPLASTY IMPLANT 08/08/2016 RICKEY ROTH L 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 Ot E66.09 OTHER OBESITY DUE TO EXCESS CALORIES 08/08/2016 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 Ot E78.4 OTHER HYPERLIPIDEMIA 08/08/2016 BAIMA, RICKEY L 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 Ot G47.33 OBSTRUCTIVE SLEEP APNEA (ADULT) ( PEDIATR 08/08/2016 BAIMA RICKEY L 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 Ot I25.10 ATHSCL HEART DISEASE OF [place] CORONARY 08/08/2016 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 Ot I65.23 OCCLUSION AND STENOSIS OF BILATERAL DYE 08/08/2016 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 Ot J43.8 OTHER EMPHYSEMA 08/08/2016 BROWERDELIA GERARD DO Ot K86.89 OTHER SPECIFIED DISEASES OF PANCREAS 08/09/2016 DELIA BROWER DO Ot K86.89 OTHER SPECIFIED DISEASES OF PAN[place] 08/14/2016 DELIA BROWER DO Ot K86.89 OTHER SPECIFIED DISEASES OF PAN[place] 08/30/2016 BAIROYAL DOWNSHER L 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 Ot E66.09 OTHER OBESITY DUE TO EXCESS CALORIES 08/30/2016 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 Ot E78.4 OTHER HYPERLIPIDEMIA 08/30/2016 BAIMA, RICKEY L 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 Ot G47.33 OBSTRUCTIVE SLEEP APNEA (ADULT) ( PEDIATR 08/30/2016 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 Ot I25.10 ATHSCL HEART DISEASE OF [place] CORONARY 08/30/2016 BAIRICKEY DOWNS L 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 Ot I65.23 OCCLUSION AND STENOSIS OF BILATERAL DYE 08/30/2016 BUFFYMARICKEY L 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 Ot J43.8 OTHER EMPHYSEMA 08/30/2016 TUYET SMITH MD Ot I10 ESSENTIAL (PRIMARY) HYPERTENSION 08/30/2016 TUYET SMITH MD Ot I25.10 ATHSCL HEART DISEASE OF [place] CORONARY 08/30/2016 TUYET SMITH MD Ot J44.9 CHRONIC OBSTRUCTIVE PULMONARY DISEASE, U 08/30/2016 TUYET SMITH MD Ot K59.03 DRUG INDUCED CONSTIPATION 08/30/2016 TUYET SMITH MD Ot R10.13 EPIGASTRIC PAIN 08/30/2016 TUYET SMITH MD Ot R11.0 NAUSEA 08/30/2016 TUYET SMITH MD Ot T40.2X5A ADVERSE EFFECT OF OTHER OPIOIDS, INITIAL 08/30/2016 TUYET SMITH MD Ot Z87.891 PERSONAL HISTORY OF NICOTINE DEPENDENCE 08/30/2016 TUYET SMITH MD Ot Z95.5 PRESENCE OF CORONARY ANGIOPLASTY IMPLANT 09/01/2016 TUYET SMITH MD Ot I10 ESSENTIAL (PRIMARY) HYPERTENSION 09/01/2016 TUYET SMITH MD Ot I25.10 ATHSCL HEART DISEASE OF [place] CORONARY 09/01/2016 TUYET SMITH MD Ot J44.9 CHRONIC OBSTRUCTIVE PULMONARY DISEASE, U 09/01/2016 TUYET SMITH MD Ot K59.03 DRUG INDUCED CONSTIPATION 09/01/2016 TUYET SMITH MD Ot R10.13 EPIGASTRIC PAIN 09/01/2016 TUYET SMITH MD Ot R11.0 NAUSEA 09/01/2016 TUYET SMITH MD Ot T40.2X5A ADVERSE EFFECT OF OTHER OPIOIDS, INITIAL 09/01/2016 TUYET SMITH MD Ot Z87.891 PERSONAL HISTORY OF NICOTINE DEPENDENCE 09/01/2016 TUYET SMITH MD Ot Z95.5 PRESENCE OF CORONARY ANGIOPLASTY IMPLANT 09/04/2016 RICKEY ROTH 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 Ot E66.09 OTHER OBESITY DUE TO EXCESS CALORIES 09/04/2016 RICKEY ROTH 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 Ot E78.4 OTHER HYPERLIPIDEMIA 09/04/2016 RICKEY ROTH 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 Ot G47.33 OBSTRUCTIVE SLEEP APNEA (ADULT) ( PEDIATR 09/04/2016 RICKEY ROTH 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 Ot I25.10 ATHSCL HEART DISEASE OF [place] CORONARY 09/04/2016 RICKEY ROTH 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 Ot I65.23 OCCLUSION AND STENOSIS OF BILATERAL DYE 09/04/2016 RICKEY ROTH 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 Ot J43.8 OTHER EMPHYSEMA Procedures Code [place] [address] UA W/ CULTURE IF INDICATED 08/14/2012 51449 CULTURE URINE 80.99 01/25/2013 81.02 01/25/2013 81.62 01/25/2013 84.51 01/25/2013 29.11 01/27/2013 33.24 02/03/2013 33.27 02/03/2013 06795 UA LONG DIP 05/[address] NECK, SOFT TISSUE NECK W/DYE 05/10/2013 07798 BMP 05/10/2013 26192 A1C (IN-HOUSE) 11063 OXIMETRY 2013 96.04 06/22/2013 96.71 06/22/2013 76325 OXIMETRY 2013 17845 ROUTINE VENIPUNCTURE 07/01/2013 07506 OXIMETRY 2013 [id number] GFR CALC (RESULT ONLY) 07/01/2013 14530 BMP 07/01/2013 36808 BNP 07/02/2013 OTOLARYNG LEONELA VIDES 07/08/2013 28906 OXIMETRY 2013 25232 THERAPUTIC INJ SQ/IM 07/08/2013 J1100 DEXAMETHASONE SODIUM PHOS, 1 MG 07/08/2013 2000F BLOOD PRESSURE CHECK 2013 35450 UA W/ CULTURE IF INDICATED 07/20/2013 Pulmonary Zelalem Summers 07/21/2013 2000F BLOOD PRESSURE CHECK 07/22/2013 12524 OXIMETRY 2013 Cardiolog Shruthi Manuel 08/10/2013 01277 ROUTINE VENIPUNCTURE 08/11/2013 31461 EKG, TRACING 49988 CMP 08/11/2013 29116 LIPID PANEL 08/11 59442 MAGNESIUM 2013 49711 CBC 08/11/2013 9120498 GFR CALC (RESULT ONLY) 08/11/2013 64415 TSH 08/11/2013 70640 A1C (IN-HOUSE) 34352 ROUTINE VENIPUNCTURE 09/29/2013 9611821 [place] COMMON-"SHORT RAGWEED" 09/30/2013 2747994 [place] WHITE 09/30/2013 8016661 DUST MITE (DERM.FARINE D2) 09/30/2013 0276176 DOG DANDER 12/2013 4778659 CLADOSPORIUM MOLD 09/30/2013 5451241 CAT DANDER 12/2013 5676104 BERMUDA GRASS 09/30/2013 4365563 ALTERNARIA TENUIS 09/30/2013 30687 IGE 09/30/2013 J1100 DEXAMETHASONE SODIUM PHOS, 1 MG 10/08/2013 02061 THERAPUTIC INJ SQ/IM 10/08/2013 66501 LEFT HEART CATH 11/12/2013 74538 OXIMETRY 2013 J1100 DEXAMETHASONE SODIUM PHOS, 1 MG 11/12/2013 02081 OXIMETRY 2013 99246 THERAPUTIC INJ SQ/IM 11/12/2013 50936 UA W/ CULTURE IF INDICATED 12/23/2013 43124 ROUTINE VENIPUNCTURE 12/31/2013 36377 A1C (IN-HOUSE) 59945 CMP 12/31/2013 49664 LIPID PANEL 12/31 50683 TSH 12/31/2013 17431 CBC 12/31/2013 25061 MAMMOGRAM, SCREENING 01/05/2014 00745 OXIMETRY 2013 07437 OXIMETRY 2013 85545 ROUTINE VENIPUNCTURE 02/22/2014 49859 CMP 02/22/2014 47036 CPK 02/22/2014 83010 MAGNESIUM 2013 66979 URIC ACID 2013 88383 INFLUENZA A & B (IN-HOUSE) 03/11/2014 69977 STREP A (IN-HOUSE) 03/11/2014 85823 XRAY CHEST 2 VIEW 03/12/2014 28281 OXIMETRY 2013 19475 THERAPUTIC INJ SQ/IM 03/12/2014 J1100 DEXAMETHASONE SODIUM PHOS, 1 MG 03/12/2014 18310 ROUTINE VENIPUNCTURE 06/24/2014 31895 URIC ACID 2014 04842 CRP 06/24/2014 ANAANA GAURAV ANALYZER (SCREEN) 06/25/2014 49269 RA FACTOR 2014 68736 ROUTINE VENIPUNCTURE 06/30/2014 54975 CMP 06/30/2014 71972 LIPID PANEL 06/30 90933 OXIMETRY 2014 [id number] INSERTION OF ENDOTRACHEAL AIRWAY INTO TR 02/11/2015 [id number] RESPIRATORY VENTILATION, LESS THAN 24 CO 02/11/2015 [id number] BYPASS TRACHEA TO CUTANEOUS WITH TRACH D 05/04/2015 Results Test Result Range Automated blood complete blood count (hemogram) panel - 02/06/16 08:22 Blood leukocytes automated count (number/volume) 6.3 10*3/ uL 4.3-11.0 Blood erythrocytes automated count (number/volume) 4.29 10*6 /uL 4.35-5.85 Venous blood hemoglobin measurement (mass/volume) 12.6 g/dL 11.5-16.0 Blood hematocrit (volume fraction) 37 % 35-52 Automated erythrocyte mean corpuscular volume 86 [foz_us] 80-99 Automated erythrocyte mean corpuscular hemoglobin (mass per erythrocyte) 29 pg 25-34 Automated erythrocyte mean corpuscular hemoglobin concentration measurement ( mass/volume) 34 g/dL 32-36 Automated erythrocyte distribution width ratio 13.3 % 10.0-14.5 Automated blood platelet count (count/volume) 185 10*3/uL 130-400 Automated blood platelet mean volume measurement 10.3 [foz_ us] 7.4-10.4 PT panel in platelet poor plasma by coagulation assay - 02/06/16 08:22 Prothrombin time (PT) in platelet poor plasma by coagulation assay 12.4 s 12.2-14.7 INR in platelet poor plasma or blood by coagulation assay 1.0 0.8-1.4 Activated partial thromboplastin time (aPTT) in platelet poor plasma bycoagulation assay - 02/06/16 08:22 Activated partial thromboplastin time (aPTT) in platelet poor plasma bycoagulation assay 20 s 24-35 Comprehensive metabolic panel - 02/06/16 08:22 Serum or plasma sodium measurement (moles/volume) 140 mmol/ L 135-145 Serum or plasma potassium measurement (moles/volume) 3.8 mmol/L 3.6-5.0 Serum or plasma chloride measurement (moles/volume) 104 mmol /L 98-107 Carbon dioxide 24 mmol/L 21-32 Serum or plasma anion gap determination (moles/volume) 12 mmol/L 5-14 Serum or plasma urea nitrogen measurement (mass/volume) 15 mg/dL 7-18 Serum or plasma creatinine measurement (mass/volume) 0.87 mg /dL 0.60-1.30 Serum or plasma urea nitrogen/creatinine mass ratio 17 NRG Serum or plasma creatinine measurement with calculation of estimated glomerular filtration rate > NRG Serum or plasma glucose measurement (mass/volume) 210 mg/dL 70-105 Serum or plasma calcium measurement (mass/volume) 9.4 mg/dL 8.5-10.1 Serum or plasma total bilirubin measurement (mass/volume) 0.4 mg/dL 0.1-1.0 Serum or plasma alkaline phosphatase measurement (enzymatic activity/volume) 63 U/L 40-136 Serum or plasma aspartate aminotransferase measurement (enzymatic activity/ volume) 25 U/L 5-34 Serum or plasma alanine aminotransferase measurement (enzymatic activity/volume ) 29 U/L 0-55 Serum or plasma protein measurement (mass/volume) 6.4 g/dL 6.4-8.2 Serum or plasma albumin measurement (mass/volume) 4.3 g/dL 3.2-4.5 Lipid 1996 panel - 02/06/16 08:22 Serum or plasma triglyceride measurement (mass/volume) 747 mg/dL <150 Serum or plasma cholesterol measurement (mass/volume) 242 mg /dL < 200 Serum or plasma cholesterol in HDL measurement (mass/volume) 39 mg/dL 40-60 Cholesterol in LDL [mass/volume] in serum or plasma by direct assay 123 mg/dL 1-129 Serum or plasma cholesterol in VLDL measurement (mass/volume) 149 mg/dL 5-40 Methicillin resistant Staphylococcus aureus (MRSA) screening culture - 08:22 Methicillin resistant Staphylococcus aureus (MRSA) screening culture NEG NRG Methicillin resistant Staphylococcus aureus (MRSA) screening culture - 12:58 Methicillin resistant Staphylococcus aureus (MRSA) screening culture NEG NRG Complete urinalysis with reflex to culture - 07/22/16 21:22 Urine color determination YELLOW NRG Urine clarity determination CLEAR NRG Urine pH measurement by test strip 7 5- 9 Specific gravity of urine by test strip 1.010 1.016-1.022 Urine protein assay by test strip, semi-quantitative NEGATIVE NEGATIVE Urine glucose detection by automated test strip NEGATIVE NEGATIVE Erythrocytes detection in urine sediment by light microscopy NEGATIVE NEGATIVE Urine ketones detection by automated test strip NEGATIVE NEGATIVE Urine nitrite detection by test strip NEGATIVE NEGATIVE Urine total bilirubin detection by test strip NEGATIVE NEGATIVE Urine urobilinogen measurement by automated test strip (mass/volume) NORMAL NORMAL Urine leukocyte esterase detection by dipstick 2+ NEGATIVE Automated urine sediment erythrocyte count by microscopy (number/high power field) NONE NRG Automated urine sediment leukocyte count by microscopy (number/high power field ) [HPF] NRG Bacteria detection in urine sediment by light microscopy TRACE NRG Squamous epithelial cells detection in urine sediment by light microscopy NONE NRG Crystals detection in urine sediment by light microscopy NONE NRG Casts detection in urine sediment by light microscopy NONE NRG Mucus detection in urine sediment by light microscopy NEGATIVE NRG Complete urinalysis with reflex to culture NO NRG Complete blood count (CBC) with automated white blood cell (WBC) differential - 07/22/16 21:40 Blood leukocytes automated count (number/volume) 12.9 10*3/ uL 4.3-11.0 Blood erythrocytes automated count (number/volume) 4.66 10*6 /uL 4.35-5.85 Venous blood hemoglobin measurement (mass/volume) 13.2 g/dL 11.5-16.0 Blood hematocrit (volume fraction) 39 % 35-52 Automated erythrocyte mean corpuscular volume 83 [foz_us] 80-99 Automated erythrocyte mean corpuscular hemoglobin (mass per erythrocyte) 28 pg 25-34 Automated erythrocyte mean corpuscular hemoglobin concentration measurement ( mass/volume) 34 g/dL 32-36 Automated erythrocyte distribution width ratio 14.0 % 10.0-14.5 Automated blood platelet count (count/volume) 237 10*3/uL 130-400 Automated blood platelet mean volume measurement 10.5 [foz_ us] 7.4-10.4 Automated blood neutrophils/100 leukocytes 75 % 42-75 Automated blood lymphocytes/100 leukocytes 16 % 12-44 Blood monocytes/100 leukocytes 8 % 0-12 Automated blood eosinophils/100 leukocytes 1 % 0-10 Automated blood basophils/100 leukocytes 0 % 0-10 Blood neutrophils automated count (number/volume) 9.6 10*3 1.8-7.8 Blood lymphocytes automated count (number/volume) 2.1 10*3 1.0-4.0 Blood monocytes automated count (number/volume) 1.0 10*3 0.0-1.0 Automated eosinophil count 0.1 10*3/uL 0.0-0.3 Automated blood basophil count (count/volume) 0.0 10*3/uL 0.0-0.1 Comprehensive metabolic panel - 07/22/16 21:40 Serum or plasma sodium measurement (moles/volume) 143 mmol/ L 135-145 Serum or plasma potassium measurement (moles/volume) 3.9 mmol/L 3.6-5.0 Serum or plasma chloride measurement (moles/volume) 107 mmol /L 98-107 Carbon dioxide 22 mmol/L 21-32 Serum or plasma anion gap determination (moles/volume) 14 mmol/L 5-14 Serum or plasma urea nitrogen measurement (mass/volume) 11 mg/dL 7-18 Serum or plasma creatinine measurement (mass/volume) 0.96 mg /dL 0.60-1.30 Serum or plasma urea nitrogen/creatinine mass ratio 11 NRG Serum or plasma creatinine measurement with calculation of estimated glomerular filtration rate 59 NRG Serum or plasma glucose measurement (mass/volume) 154 mg/dL 70-105 Serum or plasma calcium measurement (mass/volume) 9.8 mg/dL 8.5-10.1 Serum or plasma total bilirubin measurement (mass/volume) 0.6 mg/dL 0.1-1.0 Serum or plasma alkaline phosphatase measurement (enzymatic activity/volume) 57 U/L 40-136 Serum or plasma aspartate aminotransferase measurement (enzymatic activity/ volume) 34 U/L 5-34 Serum or plasma alanine aminotransferase measurement (enzymatic activity/volume ) 56 U/L 0-55 Serum or plasma protein measurement (mass/volume) 6.8 g/dL 6.4-8.2 Serum or plasma albumin measurement (mass/volume) 4.6 g/dL 3.2-4.5 Lipase - 07/22/16 21:40 Lipase 21 U/L 8-78 Capillary blood glucose measurement by glucometer (mass/volume) - 07/24/16 07: 16 Capillary blood glucose measurement by glucometer (mass/volume) 163 mg/dL 70-110 [id number] - 08/07/16 11:14 Serum or plasma urea nitrogen measurement (mass/volume) 14 mg/dL 7-18 Serum or plasma creatinine measurement (mass/volume) 0.91 mg /dL 0.60-1.30 Serum or plasma urea nitrogen/creatinine mass ratio 15 NRG Serum or plasma creatinine measurement with calculation of estimated glomerular filtration rate > NRG Complete blood count (CBC) with automated white blood cell (WBC) differential - 08/30/16 17:00 Blood leukocytes automated count (number/volume) 7.1 10*3/ uL 4.3-11.0 Blood erythrocytes automated count (number/volume) 4.40 10*6 /uL 4.35-5.85 Venous blood hemoglobin measurement (mass/volume) 12.2 g/dL 11.5-16.0 Blood hematocrit (volume fraction) 37 % 35-52 Automated erythrocyte mean corpuscular volume 85 [foz_us] 80-99 Automated erythrocyte mean corpuscular hemoglobin (mass per erythrocyte) 28 pg 25-34 Automated erythrocyte mean corpuscular hemoglobin concentration measurement ( mass/volume) 33 g/dL 32-36 Automated erythrocyte distribution width ratio 13.5 % 10.0-14.5 Automated blood platelet count (count/volume) 220 10*3/uL 130-400 Automated blood platelet mean volume measurement 10.5 [foz_ us] 7.4-10.4 Automated blood neutrophils/100 leukocytes 54 % 42-75 Automated blood lymphocytes/100 leukocytes 37 % 12-44 Blood monocytes/100 leukocytes 7 % 0-12 Automated blood eosinophils/100 leukocytes 2 % 0-10 Automated blood basophils/100 leukocytes 0 % 0-10 Blood neutrophils automated count (number/volume) 3.8 10*3 1.8-7.8 Blood lymphocytes automated count (number/volume) 2.7 10*3 1.0-4.0 Blood monocytes automated count (number/volume) 0.5 10*3 0.0-1.0 Automated eosinophil count 0.1 10*3/uL 0.0-0.3 Automated blood basophil count (count/volume) 0.0 10*3/uL 0.0-0.1 Comprehensive metabolic panel - 08/30/16 17:00 Serum or plasma sodium measurement (moles/volume) 143 mmol/ L 135-145 Serum or plasma potassium measurement (moles/volume) 3.9 mmol/L 3.6-5.0 Serum or plasma chloride measurement (moles/volume) 108 mmol /L 98-107 Carbon dioxide 24 mmol/L 21-32 Serum or plasma anion gap determination (moles/volume) 11 mmol/L 5-14 Serum or plasma urea nitrogen measurement (mass/volume) 17 mg/dL 7-18 Serum or plasma creatinine measurement (mass/volume) 1.10 mg /dL 0.60-1.30 Serum or plasma urea nitrogen/creatinine mass ratio 15 NRG Serum or plasma creatinine measurement with calculation of estimated glomerular filtration rate 50 NRG Serum or plasma glucose measurement (mass/volume) 177 mg/dL 70-105 Serum or plasma calcium measurement (mass/volume) 9.8 mg/dL 8.5-10.1 Serum or plasma total bilirubin measurement (mass/volume) 0.6 mg/dL 0.1-1.0 Serum or plasma alkaline phosphatase measurement (enzymatic activity/volume) 58 U/L 40-136 Serum or plasma aspartate aminotransferase measurement (enzymatic activity/ volume) 22 U/L 5-34 Serum or plasma alanine aminotransferase measurement (enzymatic activity/volume ) 23 U/L 0-55 Serum or plasma protein measurement (mass/volume) 6.7 g/dL 6.4-8.2 Serum or plasma albumin measurement (mass/volume) 4.4 g/dL 3.2-4.5 Magnesium - 08/30/16 17:00 Magnesium 2.2 mg/dL 1.8-2.4 Serum or plasma amylase measurement (enzymatic activity/volume) - 08/30/16 17: 00 Serum or plasma amylase measurement (enzymatic activity/volume) 28 U/L 25-125 Lipase - 08/30/16 17:00 Lipase 16 U/L 8-78 Complete urinalysis with reflex to culture - 08/30/16 17:20 Urine color determination YELLOW NRG Urine clarity determination CLEAR NRG Urine pH measurement by test strip 7 5- 9 Specific gravity of urine by test strip 1.010 1.016-1.022 Urine protein assay by test strip, semi-quantitative NEGATIVE NEGATIVE Urine glucose detection by automated test strip NEGATIVE NEGATIVE Erythrocytes detection in urine sediment by light microscopy NEGATIVE NEGATIVE Urine ketones detection by automated test strip NEGATIVE NEGATIVE Urine nitrite detection by test strip NEGATIVE NEGATIVE Urine total bilirubin detection by test strip NEGATIVE NEGATIVE Urine urobilinogen measurement by automated test strip (mass/volume) NORMAL NORMAL Urine leukocyte esterase detection by dipstick NEGATIVE NEGATIVE Automated urine sediment erythrocyte count by microscopy (number/high power field) NONE NRG Automated urine sediment leukocyte count by microscopy (number/high power field ) RARE NRG Bacteria detection in urine sediment by light microscopy NEGATIVE NRG Squamous epithelial cells detection in urine sediment by light microscopy NONE NRG Crystals detection in urine sediment by light microscopy NONE NRG Casts detection in urine sediment by light microscopy NONE NRG Mucus detection in urine sediment by light microscopy NEGATIVE NRG Complete urinalysis with reflex to culture NO NRG Blood lactic acid measurement (moles/volume) - 08/30/16 17:31 Blood lactic acid measurement (moles/volume) 1.08 mmol/L 0.50-2.00 Complete blood count (CBC) with automated white blood cell (WBC) differential - 09/12/16 12:05 Blood leukocytes automated count (number/volume) 5.5 10*3/ uL 4.3-11.0 Blood erythrocytes automated count (number/volume) 4.37 10*6 /uL 4.35-5.85 Venous blood hemoglobin measurement (mass/volume) 12.3 g/dL 11.5-16.0 Blood hematocrit (volume fraction) 37 % 35-52 Automated erythrocyte mean corpuscular volume 85 [foz_us] 80-99 Automated erythrocyte mean corpuscular hemoglobin (mass per erythrocyte) 28 pg 25-34 Automated erythrocyte mean corpuscular hemoglobin concentration measurement ( mass/volume) 33 g/dL 32-36 Automated erythrocyte distribution width ratio 13.4 % 10.0-14.5 Automated blood platelet count (count/volume) 223 10*3/uL 130-400 Automated blood platelet mean volume measurement 10.5 [foz_ us] 7.4-10.4 Automated blood neutrophils/100 leukocytes 42 % 42-75 Automated blood lymphocytes/100 leukocytes 47 % 12-44 Blood monocytes/100 leukocytes 7 % 0-12 Automated blood eosinophils/100 leukocytes 2 % 0-10 Automated blood basophils/100 leukocytes 1 % 0-10 Blood neutrophils automated count (number/volume) 2.3 10*3 1.8-7.8 Blood lymphocytes automated count (number/volume) 2.6 10*3 1.0-4.0 Blood monocytes automated count (number/volume) 0.4 10*3 0.0-1.0 Automated eosinophil count 0.1 10*3/uL 0.0-0.3 Automated blood basophil count (count/volume) 0.0 10*3/uL 0.0-0.1 THYROID STIMULATING HORMONE - 09/12/16 12:05 THYROID STIMULATING HORMONE 2.59 u[iU]/mL 0.35-4.94 Encounters ACCT No. Visit Date/Time Discharge Status Pt. Type Provider Facility Loc./Unit Complaint [id number] 07/12/2014 10:52:00 07/12/2014 23: 59:59 CLS Outpatient MILYL COREY CASTRO [id number] 06/30/2014 12:17:00 06/30/2014 23: 59:59 CLS Outpatient MILYCOREY Mittal APRN [id number] 06/24/2014 13:01:00 06/24/2014 23: 59:59 CLS Outpatient COREY JUAREZ APRN [id number] 05/30/2014 10:42:00 05/30/2014 23: 59:59 CLS Outpatient ALVERTO MAGUIRE DO [id number] 05/02/2014 10:50:00 05/02/2014 23: 59:59 CLS Outpatient MADL PICTURE ENGRAVERCOREY L [id number] 03/25/2014 13:34:00 03/25/2014 23: 59:59 CLS Outpatient MADL PICTURE ENGRAVERCOREY L [id number] 03/12/2014 09:45:00 03/12/2014 23: 59:59 CLS Outpatient SABIHA PICTURE ENGRAVERALVERTOA S [id number] 03/12/2014 09:45:00 03/12/2014 23: 59:59 CLS Outpatient SABIHA PICTURE ENGRAVERANGIE S [id number] 02/22/2014 13:52:00 02/22/2014 23: 59:59 CLS Outpatient MADL PICTURE ENGRAVERLEONORAA L [id number] 01/25/2014 13:37:00 01/25/2014 23: 59:59 CLS Outpatient MADL PICTURE ENGRAVERLEONORAA L [id number] 01/18/2014 13:55:00 01/18/2014 23: 59:59 CLS Outpatient MADL PICTURE ENGRAVERLEONORAA L [id number] 01/17/2014 13:48:00 01/17/2014 23: 59:59 CLS Outpatient EDUARDO TRENT APRN [id number] 01/05/2014 16:39:00 01/05/2014 23: 59:59 CLS Outpatient GILMERBRYSON Perez APRN [id number] 12/31/2013 08:27:00 12/31/2013 23: 59:59 CLS Outpatient MADL PICTURE ENGRAVERCOREY L [id number] 12/23/2013 11:21:00 12/23/2013 23: 59:59 CLS Outpatient GILMERBRYSON Perez APRN A [id number] 11/12/2013 14:02:00 11/12/2013 23: 59:59 CLS Outpatient MADL PICTURE ENGRAVERMEGANCOREY L [id number] 11/12/2013 14:02:00 11/12/2013 23: 59:59 CLS Outpatient ANDREZ DOALVERTO [id number] 10/12/2013 15:31:00 10/12/2013 23: 59:59 CLS Outpatient ALVERTO MAGUIRE DO [id number] 10/08/2013 09:59:00 10/08/2013 23: 59:59 CLS Outpatient ALVERTO MAGUIRE DO [id number] 10/08/2013 09:59:00 10/08/2013 23: 59:59 CLS Outpatient MADL PICTURE ENGRAVER, COREY L [id number] 09/29/2013 15:38:00 09/29/2013 23: 59:59 CLS Outpatient MAGUIRE DO, ALVERTO Child [id number] 09/22/2013 09:37:00 09/22/2013 23: 59:59 CLS Outpatient MADL PICTURE ENGRAVER, COREY L [id number] 09/22/2013 09:37:00 09/22/2013 23: 59:59 CLS Outpatient MADL PICTURE ENGRAVER, COREY L [id number] 09/08/2013 07:58:00 09/08/2013 23: 59:59 CLS Outpatient MAGUIRE DO, ALVERTO Danyell [id number] 08/11/2013 12:31:00 08/11/2013 23: 59:59 CLS Outpatient MADL PICTURE ENGRAVER, COREY L [id number] 08/10/2013 11:32:00 08/10/2013 23: 59:59 CLS Outpatient MADL PICTURE ENGRAVER, COREY L [id number] 08/10/2013 11:32:00 08/10/2013 23: 59:59 CLS Outpatient MAGUIRE DO, ALVERTO Danyell [id number] 07/22/2013 13:38:00 07/22/2013 23: 59:59 CLS Outpatient MAGUIRE DO, ALVERTO K [id number] 07/20/2013 13:11:00 07/20/2013 23: 59:59 CLS Outpatient MADL PICTURE ENGRAVER, COREY L [id number] 2013 15:37:00 2013 23: 59:59 CLS Outpatient MAGUIRE DO, ALVERTO K [id number] 07/08/2013 13:46:00 07/08/2013 23: 59:59 CLS Outpatient MAGUIRE DO, ALVERTO K [id number] 07/08/2013 13:46:00 07/08/2013 23: 59:59 CLS Outpatient MAGUIRE DO, ALVERTO K [id number] 07/01/2013 14:28:00 07/01/2013 23: 59:59 CLS Outpatient MAGUIRE DO, ALVERTO K [id number] 06/22/2013 11:00:00 06/22/2013 23: 59:59 CLS Outpatient MAGUIRE DO, ALVERTO K [id number] 06/03/2013 11:17:00 06/03/2013 23: 59:59 CLS Outpatient ANDREZ ALVERTO RAMSEY [id number] 05/05/2013 13:31:00 05/05/2013 23: 59:59 CLS Outpatient WILL CANO MD [id number] 05/05/2013 13:31:00 05/05/2013 23: 59:59 CLS Outpatient WILL CANO MD [id number] 08/14/2012 11:25:00 Document Registration
--- OUTSIDE RECORDS SUMMARY | 2016-10-01 19:26 | XMS REPORT | Continuity of Care Document ---
Author Author [facility] Address Unknown Phone Unavailable Allergies Active Description Code Type Severity Reaction Onset Reported/Identified Relationship to Patient Clinical Status Yes Codeine Drug Allergy N/A N/A 08/14/2012 Yes Penicillins Drug Allergy N/A N/A 08/14/2012 Yes codeine [id number] Drug Allergy Unknown NAUSEA 02/28/2014 Yes Penicillins [id number] Drug Allergy Unknown NAUSEA 02/28/2014 Yes codeine [id number] Drug Allergy Mild NAUSEA, PT TAKE 05/25/2015 Yes Penicillins [id number] Drug Allergy Mild NAUSEA 05/25/2015 Yes Dornase Wesley [id number] Drug Allergy Unknown RAPID HEART DEANNA 05/25/2015 [...] 724.2 LUMBAGO/ LOW BACK PAIN 08/14/2012 MADL GAMBRELER, COREY L 724.2 LUMBAGO/ LOW BACK PAIN 08/14/2012 MADL GAMBRELER, COREY L 724.2 LUMBAGO/ LOW BACK PAIN 08/14/2012 MAGUIRE DO, ALVERTO K 724.2 LUMBAGO/ LOW BACK PAIN 08/14/2012 MAGUIRE DO, ALVERTO K 724.2 LUMBAGO/ LOW BACK PAIN 08/14/2012 MADL GAMBRELER, COREY L 724.2 LUMBAGO/ LOW BACK PAIN 08/14/2012 MAGUIRE DO, ALVERTO K 724.2 LUMBAGO/ LOW BACK PAIN 08/14/2012 MADL GAMBRELER, COREY L 724.2 LUMBAGO/ LOW BACK PAIN 08/14/2012 MADL GAMBRELER, COREY L 724.2 LUMBAGO/ LOW BACK PAIN 08/14/2012 MAGUIRE DO, ALVERTO K 724.2 LUMBAGO/ LOW BACK PAIN 08/14/2012 MAGUIRE DO, ALVERTO K 724.2 LUMBAGO/ LOW BACK PAIN 08/14/2012 MADL GAMBRELER, COREY L 724.2 LUMBAGO/ LOW BACK PAIN 08/14/2012 MAGUIRE DO, ALVERTO K 724.2 LUMBAGO/ LOW BACK PAIN 08/14/2012 GILMER GAMBRELER, BRYSON A 724.2 LUMBAGO/ LOW BACK PAIN 08/14/2012 MADL GAMBRELER, COREY L 724.2 LUMBAGO/ LOW BACK PAIN 08/14/2012 GILMER GAMBRELER, BRYSON A 724.2 LUMBAGO/ LOW BACK PAIN 08/14/2012 TWAN GAMBRELER, EDUARDO R 724.2 LUMBAGO/ LOW BACK PAIN 08/14/2012 MADL GAMBRELER, COREY L 724.2 LUMBAGO/ LOW BACK PAIN 08/14/2012 MADL GAMBRELER, COREY L 724.2 LUMBAGO/ LOW BACK PAIN 08/14/2012 MADL GAMBRELER, COREY L 724.2 LUMBAGO/ LOW BACK PAIN 08/14/2012 SABIHA GAMBRELER, ANGIE S 724.2 LUMBAGO/ LOW BACK PAIN 08/14/2012 SABIHA GAMBRELER, ANGIE S 724.2 LUMBAGO/ LOW BACK PAIN 08/14/2012 MADL GAMBRELER, COREY L 724.2 LUMBAGO/ LOW BACK PAIN 08/14/2012 MADL GAMBRELER, COREY L 724.2 LUMBAGO/ LOW BACK PAIN 08/14/2012 ALVERTO MAGUIRE DO 724.2 LUMBAGO/ LOW BACK PAIN 08/14/2012 MADL GAMBRELER, COREY L 724.2 LUMBAGO/ LOW BACK PAIN 08/14/2012 MADL GAMBRELER, COREY L 724.2 LUMBAGO/ LOW BACK PAIN 08/14/2012 MADL GAMBRELER, COREY L 724.2 LUMBAGO/ LOW BACK PAIN [...] CHRONIC AIRWAY OBSTRUCTION NOT ELSEWHERE CLASSIFIED 05/05/2013 IWLL CANO MD M 599.0 URINARY TRACT INFECTION [...] DO, ALVERTO K 723.1 CERVICALGIA 05/05/2013 MADL GAMBRELER, COREY L 250.60 DIABETES WITH NEUROLOGICAL MANIFESTATIONS TYPE II OR UNSPECIFIED TYPE NOT STATED UNCONTROLLED 05/05/2013 MADL GAMBRELER, COREY L 272.4 OTHER AND UNSPECIFIED HYPERLIPIDEMIA 05/05/2013 MADL GAMBRELER, COREY L 401.1 BENIGN ESSENTIAL HYPERTENSION 05/05/2013 MADL GAMBRELER, COREY L 496 CHRONIC AIRWAY OBSTRUCTION NOT ELSEWHERE CLASSIFIED 05/05/2013 MADL GAMBRELER, COREY L 599.0 URINARY TRACT INFECTION SITE NOT SPECIFIED 05/05/2013 MADL GAMBRELER, COREY L 627.9 UNSPECIFIED MENOPAUSAL AND POSTMENOPAUSAL DISORDER 05/05/2013 MADL GAMBRELER, COREY L 723.1 CERVICALGIA 05/05/2013 MAGUIRE DO, [...] DO, ALVERTO K 723.1 CERVICALGIA 05/05/2013 MADL GAMBRELER, COREY L 250.60 DIABETES WITH NEUROLOGICAL MANIFESTATIONS TYPE II OR UNSPECIFIED TYPE NOT STATED UNCONTROLLED 05/05/2013 MADL GAMBRELER, COREY L 272.4 OTHER AND UNSPECIFIED HYPERLIPIDEMIA 05/05/2013 MADL GAMBRELER, COREY L 401.1 BENIGN ESSENTIAL HYPERTENSION 05/05/2013 MADL GAMBRELER, COREY L 496 CHRONIC AIRWAY OBSTRUCTION NOT ELSEWHERE CLASSIFIED 05/05/2013 MADL GAMBRELER, COREY L 599.0 URINARY TRACT INFECTION SITE NOT SPECIFIED 05/05/2013 MADL GAMBRELER, COREY L 627.9 UNSPECIFIED MENOPAUSAL AND POSTMENOPAUSAL DISORDER 05/05/2013 MADL GAMBRELER, COREY L 723.1 CERVICALGIA 05/05/2013 MADL GAMBRELER, COREY L 250.60 DIABETES WITH NEUROLOGICAL MANIFESTATIONS TYPE II OR UNSPECIFIED TYPE NOT STATED UNCONTROLLED 05/05/2013 MADL GAMBRELER, COREY L 272.4 OTHER AND UNSPECIFIED HYPERLIPIDEMIA 05/05/2013 MADL GAMBRELER, COREY L 401.1 BENIGN ESSENTIAL HYPERTENSION 05/05/2013 MADL GAMBRELER, COREY L 496 CHRONIC AIRWAY OBSTRUCTION NOT ELSEWHERE CLASSIFIED 05/05/2013 MADL GAMBRELER, COREY L 599.0 URINARY TRACT INFECTION SITE NOT SPECIFIED 05/05/2013 MADL GAMBRELER, COREY L 627.9 UNSPECIFIED MENOPAUSAL AND POSTMENOPAUSAL DISORDER 05/05/2013 MADL GAMBRELER, COREY L 723.1 CERVICALGIA 05/05/2013 MAGUIRE DO, [...] DO, ALVERTO K 723.1 CERVICALGIA 05/05/2013 MADL GAMBRELER, COREY L 250.60 DIABETES WITH NEUROLOGICAL MANIFESTATIONS TYPE II OR UNSPECIFIED TYPE NOT STATED UNCONTROLLED 05/05/2013 MADL GAMBRELER, COREY L 272.4 OTHER AND UNSPECIFIED HYPERLIPIDEMIA 05/05/2013 MADL GAMBRELER, COREY L 401.1 BENIGN ESSENTIAL HYPERTENSION 05/05/2013 MADL GAMBRELER, COREY L 496 CHRONIC AIRWAY OBSTRUCTION NOT ELSEWHERE CLASSIFIED 05/05/2013 MADL GAMBRELER, COREY L 599.0 URINARY TRACT INFECTION SITE NOT SPECIFIED 05/05/2013 MADL GAMBRELER, COREY L 627.9 UNSPECIFIED MENOPAUSAL AND POSTMENOPAUSAL DISORDER 05/05/2013 MADL GAMBRELER, COREY L 723.1 CERVICALGIA 05/05/2013 MAGUIRE DO [...] DO, ALVERTO K 723.1 CERVICALGIA 05/05/2013 MADL GAMBRELER, COREY L 250.60 DIABETES WITH NEUROLOGICAL MANIFESTATIONS TYPE II OR UNSPECIFIED TYPE NOT STATED UNCONTROLLED 05/05/2013 MADL GAMBRELER, COREY L 272.4 OTHER AND UNSPECIFIED HYPERLIPIDEMIA 05/05/2013 MADL GAMBRELER, COREY L 401.1 BENIGN ESSENTIAL HYPERTENSION 05/05/2013 MADL GAMBRELER, COREY L 496 CHRONIC AIRWAY OBSTRUCTION NOT ELSEWHERE CLASSIFIED 05/05/2013 MADL GAMBRELER, COREY L 599.0 URINARY TRACT INFECTION SITE NOT SPECIFIED 05/05/2013 MADL GAMBRELER, COREY L 627.9 UNSPECIFIED MENOPAUSAL AND POSTMENOPAUSAL DISORDER 05/05/2013 MADL GAMBRELER, COREY L 723.1 CERVICALGIA 05/05/2013 MADL GAMBRELER, COREY L 250.60 DIABETES WITH NEUROLOGICAL MANIFESTATIONS TYPE II OR UNSPECIFIED TYPE NOT STATED UNCONTROLLED 05/05/2013 MADL GAMBRELER, COREY L 272.4 OTHER AND UNSPECIFIED HYPERLIPIDEMIA 05/05/2013 MADL GAMBRELER, COREY L 401.1 BENIGN ESSENTIAL HYPERTENSION 05/05/2013 MADL GAMBRELER, COREY L 496 CHRONIC AIRWAY OBSTRUCTION NOT ELSEWHERE CLASSIFIED 05/05/2013 MADL GAMBRELER, COREY L 599.0 URINARY TRACT INFECTION SITE NOT SPECIFIED 05/05/2013 MADL GAMBRELER, COREY L 627.9 UNSPECIFIED MENOPAUSAL AND POSTMENOPAUSAL DISORDER 05/05/2013 MADL GAMBRELER, COREY L 723.1 CERVICALGIA 05/05/2013 MAGUIRE DO, [...] DO, ALVERTO K 723.1 CERVICALGIA 05/05/2013 MADL GAMBRELER, COREY L 250.60 DIABETES WITH NEUROLOGICAL MANIFESTATIONS TYPE II OR UNSPECIFIED TYPE NOT STATED UNCONTROLLED 05/05/2013 MADL GAMBRELER, COREY L 272.4 OTHER AND UNSPECIFIED HYPERLIPIDEMIA 05/05/2013 MADL GAMBRELER, COREY L 401.1 BENIGN ESSENTIAL HYPERTENSION 05/05/2013 MADL GAMBRELER, COREY L 496 CHRONIC AIRWAY OBSTRUCTION NOT ELSEWHERE CLASSIFIED 05/05/2013 MADL GAMBRELER, COREY L 599.0 URINARY TRACT INFECTION SITE NOT SPECIFIED 05/05/2013 MADL GAMBRELER, COREY L 627.9 UNSPECIFIED MENOPAUSAL AND POSTMENOPAUSAL DISORDER 05/05/2013 MADL GAMBRELER, COREY L 723.1 CERVICALGIA 05/05/2013 MAGUIRE DO, [...] PAUL RAMSEYA K 723.1 CERVICALGIA 05/05/2013 GILMER GAMBRELER, BRYSON A 250.60 DIABETES WITH NEUROLOGICAL MANIFESTATIONS TYPE II OR UNSPECIFIED TYPE NOT STATED UNCONTROLLED 05/05/2013 GILMER GAMBRELER, BRYSON A 272.4 OTHER AND UNSPECIFIED HYPERLIPIDEMIA 05/05/2013 GILMER GAMBRELER, BRYSON A 401.1 BENIGN ESSENTIAL HYPERTENSION 05/05/2013 GILMER GAMBRELER, BRYSON A 496 CHRONIC AIRWAY OBSTRUCTION NOT ELSEWHERE CLASSIFIED 05/05/2013 GILMER GAMBRELER, BRYSON A 599.0 URINARY TRACT INFECTION SITE NOT SPECIFIED 05/05/2013 GILMER GAMBRELER, BRYSON A 627.9 UNSPECIFIED MENOPAUSAL AND POSTMENOPAUSAL DISORDER 05/05/2013 GILMER GAMBRELER, BRYSON A 723.1 CERVICALGIA 05/05/2013 OKSANA JUAREZ APRNWNYA L 250.60 DIABETES WITH NEUROLOGICAL MANIFESTATIONS TYPE II OR UNSPECIFIED TYPE NOT STATED UNCONTROLLED 05/05/2013 MILYL GAMBRELER, COREY L 272.4 OTHER AND UNSPECIFIED HYPERLIPIDEMIA 05/05/2013 MILYL GAMBRELER COREY L 401.1 BENIGN ESSENTIAL HYPERTENSION 05/05/2013 MILYL GAMBRELER, COREY L 496 CHRONIC AIRWAY OBSTRUCTION NOT ELSEWHERE CLASSIFIED 05/05/2013 MILYL MATTHEW COREY L 599.0 URINARY TRACT INFECTION SITE NOT SPECIFIED 05/05/2013 MILYL GAMBRELER, COREY L 627.9 UNSPECIFIED MENOPAUSAL AND POSTMENOPAUSAL DISORDER 05/05/2013 LARRY VILLAChris COREY L 723.1 CERVICALGIA 05/05/2013 GILMER GAMBRELER, BRYSON A 250.60 DIABETES WITH NEUROLOGICAL MANIFESTATIONS TYPE II OR UNSPECIFIED TYPE NOT STATED UNCONTROLLED 05/05/2013 GILMER GAMBRELER, BRYSON A 272.4 OTHER AND UNSPECIFIED HYPERLIPIDEMIA 05/05/2013 GILMER GAMBRELER, BRYSON A 401.1 BENIGN ESSENTIAL HYPERTENSION 05/05/2013 GILMER GAMBRELER, BRYSON A 496 CHRONIC AIRWAY OBSTRUCTION NOT ELSEWHERE CLASSIFIED 05/05/2013 GILMER GAMBRELER, BRYSON A 599.0 URINARY TRACT INFECTION SITE NOT SPECIFIED 05/05/2013 GILMER GAMBRELER, BRYSON A 627.9 UNSPECIFIED MENOPAUSAL AND POSTMENOPAUSAL DISORDER 05/05/2013 GILMER VILLAN, BRYSON A 723.1 CERVICALGIA 05/05/2013 TRENT GAMBRELER, EDUARDO R 250.60 DIABETES WITH NEUROLOGICAL MANIFESTATIONS TYPE II OR UNSPECIFIED TYPE NOT STATED UNCONTROLLED 05/05/2013 TRENT GAMBRELER, EDUARDO R 272.4 OTHER AND UNSPECIFIED HYPERLIPIDEMIA 05/05/2013 TRENT GAMBRELER, EDUARDO R 401.1 BENIGN ESSENTIAL HYPERTENSION 05/05/2013 TWAN GAMBRELER EDUARDO R 496 CHRONIC AIRWAY OBSTRUCTION NOT ELSEWHERE CLASSIFIED 05/05/2013 TRENT GAMBRELER, EDUARDO R 599.0 URINARY TRACT INFECTION SITE NOT SPECIFIED 05/05/2013 TRENT GAMBRELER, EDUARDO R 627.9 UNSPECIFIED MENOPAUSAL AND POSTMENOPAUSAL DISORDER 05/05/2013 TWAN GAMBRELER, EDUARDO R 723.1 CERVICALGIA 05/05/2013 MADL GAMBRELER, COREY L 250.60 DIABETES WITH NEUROLOGICAL MANIFESTATIONS TYPE II OR UNSPECIFIED TYPE NOT STATED UNCONTROLLED 05/05/2013 MADL GAMBRELER, COREY L 272.4 OTHER AND UNSPECIFIED HYPERLIPIDEMIA 05/05/2013 MADL GAMBRELER, COREY L 401.1 BENIGN ESSENTIAL HYPERTENSION 05/05/2013 MADL GAMBRELER, COREY L 496 CHRONIC AIRWAY OBSTRUCTION NOT ELSEWHERE CLASSIFIED 05/05/2013 MADL GAMBRELER, COREY L 599.0 URINARY TRACT INFECTION SITE NOT SPECIFIED 05/05/2013 MADL GAMBRELER, COREY L 627.9 UNSPECIFIED MENOPAUSAL AND POSTMENOPAUSAL DISORDER 05/05/2013 MADL GAMBRELER, COREY L 723.1 CERVICALGIA 05/05/2013 MADL GAMBRELER, COREY L 250.60 DIABETES WITH NEUROLOGICAL MANIFESTATIONS TYPE II OR UNSPECIFIED TYPE NOT STATED UNCONTROLLED 05/05/2013 MADL GAMBRELER, COREY L 272.4 OTHER AND UNSPECIFIED HYPERLIPIDEMIA 05/05/2013 MADL GAMBRELER, COREY L 401.1 BENIGN ESSENTIAL HYPERTENSION 05/05/2013 MADL GAMBRELER, COREY L 496 CHRONIC AIRWAY OBSTRUCTION NOT ELSEWHERE CLASSIFIED 05/05/2013 MADL GAMBRELER, COREY L 599.0 URINARY TRACT INFECTION SITE NOT SPECIFIED 05/05/2013 MADL GAMBRELER, COREY L 627.9 UNSPECIFIED MENOPAUSAL AND POSTMENOPAUSAL DISORDER 05/05/2013 MADL GAMBRELER, COREY L 723.1 CERVICALGIA 05/05/2013 MADL GAMBRELER, COREY L 250.60 DIABETES WITH NEUROLOGICAL MANIFESTATIONS TYPE II OR UNSPECIFIED TYPE NOT STATED UNCONTROLLED 05/05/2013 MADL GAMBRELER, COREY L 272.4 OTHER AND UNSPECIFIED HYPERLIPIDEMIA 05/05/2013 MADL GAMBRELER, COREY L 401.1 BENIGN ESSENTIAL HYPERTENSION 05/05/2013 MADL GAMBRELER, COREY L 496 CHRONIC AIRWAY OBSTRUCTION NOT ELSEWHERE CLASSIFIED 05/05/2013 MADL GAMBRELER, COREY L 599.0 URINARY TRACT INFECTION SITE NOT SPECIFIED 05/05/2013 MADL GAMBRELER, COREY L 627.9 UNSPECIFIED MENOPAUSAL AND POSTMENOPAUSAL DISORDER 05/05/2013 MADL GAMBRELER, COREY L 723.1 CERVICALGIA 05/05/2013 SABIHA GAMBRELER, ANGIE S 250.60 DIABETES WITH NEUROLOGICAL MANIFESTATIONS TYPE II OR UNSPECIFIED TYPE NOT STATED UNCONTROLLED 05/05/2013 SABIHA GAMBRELER, ANGIE S 272.4 OTHER AND UNSPECIFIED HYPERLIPIDEMIA 05/05/2013 SABIHA GAMBRELER, ANGIE S 401.1 BENIGN ESSENTIAL HYPERTENSION 05/05/2013 SABIHA GAMBRELER, ANGIE S 496 CHRONIC AIRWAY OBSTRUCTION NOT ELSEWHERE CLASSIFIED 05/05/2013 SABIHA GAMBRELER, ANGIE S 599.0 URINARY TRACT INFECTION SITE NOT SPECIFIED 05/05/2013 SABIHA GAMBRELER, ANGIE S 627.9 UNSPECIFIED MENOPAUSAL AND POSTMENOPAUSAL DISORDER 05/05/2013 SABIHA GAMBRELER, ANGIE S 723.1 CERVICALGIA 05/05/2013 SABIHA GAMBRELER, ANGIE S 250.60 DIABETES WITH NEUROLOGICAL MANIFESTATIONS TYPE II OR UNSPECIFIED TYPE NOT STATED UNCONTROLLED 05/05/2013 SABIHA GAMBRELER, ANGIE S 272.4 OTHER AND UNSPECIFIED HYPERLIPIDEMIA 05/05/2013 SABIHA GAMBRELER, ANGIE S 401.1 BENIGN ESSENTIAL HYPERTENSION 05/05/2013 SABIHA GAMBRELER, ANGIE S 496 CHRONIC AIRWAY OBSTRUCTION NOT ELSEWHERE CLASSIFIED 05/05/2013 SABIHA GAMBRELER, ANGIE S 599.0 URINARY TRACT INFECTION SITE NOT SPECIFIED 05/05/2013 SABIHA GAMBRELER, ANGIE S 627.9 UNSPECIFIED MENOPAUSAL AND POSTMENOPAUSAL DISORDER 05/05/2013 SABIHAAGUSTINA VILLAN, ANGIE S 723.1 CERVICALGIA 05/05/2013 MADL GAMBRELER, COREY L 250.60 DIABETES WITH NEUROLOGICAL MANIFESTATIONS TYPE II OR UNSPECIFIED TYPE NOT STATED UNCONTROLLED 05/05/2013 MADL GAMBRELER, COREY L 272.4 OTHER AND UNSPECIFIED HYPERLIPIDEMIA 05/05/2013 MADL GAMBRELER, COREY L 401.1 BENIGN ESSENTIAL HYPERTENSION 05/05/2013 MADL GAMBRELER, COREY L 496 CHRONIC AIRWAY OBSTRUCTION NOT ELSEWHERE CLASSIFIED 05/05/2013 MADL GAMBRELER, COREY L 599.0 URINARY TRACT INFECTION SITE NOT SPECIFIED 05/05/2013 MADL GAMBRELER, COREY L 627.9 UNSPECIFIED MENOPAUSAL AND POSTMENOPAUSAL DISORDER 05/05/2013 MADL GAMBRELER, COREY L 723.1 CERVICALGIA 05/05/2013 MADL GAMBRELER, COREY L 250.60 DIABETES WITH NEUROLOGICAL MANIFESTATIONS TYPE II OR UNSPECIFIED TYPE NOT STATED UNCONTROLLED 05/05/2013 MADL GAMBRELER, COREY L 272.4 OTHER AND UNSPECIFIED HYPERLIPIDEMIA 05/05/2013 MADL GAMBRELER, COREY L 401.1 BENIGN ESSENTIAL HYPERTENSION 05/05/2013 MADL GAMBRELER, COREY L 496 CHRONIC AIRWAY OBSTRUCTION NOT ELSEWHERE CLASSIFIED 05/05/2013 MADL GAMBRELER, COREY L 599.0 URINARY TRACT INFECTION SITE NOT SPECIFIED 05/05/2013 MADL GAMBRELER, COREY L 627.9 UNSPECIFIED MENOPAUSAL AND POSTMENOPAUSAL DISORDER 05/05/2013 MADL GAMBRELER, COREY L 723.1 CERVICALGIA 05/05/2013 MAGUIRE DO, [...] DO, ALVERTO K 723.1 CERVICALGIA 05/05/2013 MADL GAMBRELER, COREY L 250.60 DIABETES WITH NEUROLOGICAL MANIFESTATIONS TYPE II OR UNSPECIFIED TYPE NOT STATED UNCONTROLLED 05/05/2013 MADL GAMBRELER, COREY L 272.4 OTHER AND UNSPECIFIED HYPERLIPIDEMIA 05/05/2013 MADL GAMBRELER, COREY L 401.1 BENIGN ESSENTIAL HYPERTENSION 05/05/2013 MADL GAMBRELER, COREY L 496 CHRONIC AIRWAY OBSTRUCTION NOT ELSEWHERE CLASSIFIED 05/05/2013 MADL GAMBRELER, COREY L 599.0 URINARY TRACT INFECTION SITE NOT SPECIFIED 05/05/2013 MADL GAMBRELER, COREY L 627.9 UNSPECIFIED MENOPAUSAL AND POSTMENOPAUSAL DISORDER 05/05/2013 MADL GAMBRELER, COREY L 723.1 CERVICALGIA 05/05/2013 MADL GAMBRELER, COREY L 250.60 DIABETES WITH NEUROLOGICAL MANIFESTATIONS TYPE II OR UNSPECIFIED TYPE NOT STATED UNCONTROLLED 05/05/2013 MADL GAMBRELER, COREY L 272.4 OTHER AND UNSPECIFIED HYPERLIPIDEMIA 05/05/2013 MADL GAMBRELER, COREY L 401.1 BENIGN ESSENTIAL HYPERTENSION 05/05/2013 MADL GAMBRELER, COREY L 496 CHRONIC AIRWAY OBSTRUCTION NOT ELSEWHERE CLASSIFIED 05/05/2013 MADL GAMBRELER, COREY L 599.0 URINARY TRACT INFECTION SITE NOT SPECIFIED 05/05/2013 MADL GAMBRELER, COREY L 627.9 UNSPECIFIED MENOPAUSAL AND POSTMENOPAUSAL DISORDER 05/05/2013 MADL GAMBRELER, COREY L 723.1 CERVICALGIA 05/05/2013 MADL GAMBRELER, COREY L 250.60 DIABETES WITH NEUROLOGICAL MANIFESTATIONS TYPE II OR UNSPECIFIED TYPE NOT STATED UNCONTROLLED 05/05/2013 MADL GAMBRELER, COREY L 272.4 OTHER AND UNSPECIFIED HYPERLIPIDEMIA 05/05/2013 MADL GAMBRELER, COREY L 401.1 BENIGN ESSENTIAL HYPERTENSION 05/05/2013 MADL GAMBRELER, COREY L 496 CHRONIC AIRWAY OBSTRUCTION NOT ELSEWHERE CLASSIFIED 05/05/2013 MADL GAMBRELER, COREY L 599.0 URINARY TRACT INFECTION SITE NOT SPECIFIED 05/05/2013 MADL GAMBRELER, COREY L 627.9 UNSPECIFIED MENOPAUSAL AND POSTMENOPAUSAL [...] CHRONIC BRONCHITIS WITH (ACUTE) EXACERBATION 06/03/2013 COREY JAUREZ APRN L 491.21 OBSTRUCTIVE CHRONIC BRONCHITIS WITH [...] BRONCHITIS WITH (ACUTE ) EXACERBATION 06/03/2013 LARRY GAMBRELERMEGAN PerezNYA L 491.21 OBSTRUCTIVE CHRONIC BRONCHITIS WITH (ACUTE ) EXACERBATION 06/03/2013 PAUL MAGUIRE DOA K 491.21 OBSTRUCTIVE CHRONIC BRONCHITIS WITH (ACUTE) EXACERBATION 06/03/2013 PAUL MAGUIRE DOA K 491.21 OBSTRUCTIVE CHRONIC BRONCHITIS WITH (ACUTE) EXACERBATION 06/03/2013 MADL GAMBRELER, COREY L 491.21 OBSTRUCTIVE CHRONIC BRONCHITIS WITH (ACUTE ) EXACERBATION 06/03/2013 ALVERTO MAGUIRE DO 491.21 OBSTRUCTIVE CHRONIC BRONCHITIS WITH (ACUTE) EXACERBATION 06/03/2013 GILMER GAMBRELER, BRYSON A 491.21 OBSTRUCTIVE CHRONIC BRONCHITIS WITH ( ACUTE) EXACERBATION 06/03/2013 MADL GAMBRELER, COREY L 491.21 OBSTRUCTIVE CHRONIC BRONCHITIS WITH (ACUTE ) EXACERBATION 06/03/2013 GILMER GAMBRELER, BRYSON A 491.21 OBSTRUCTIVE CHRONIC BRONCHITIS WITH ( ACUTE) EXACERBATION 06/03/2013 TRENT GAMBRELER, EDUARDO R 491.21 OBSTRUCTIVE CHRONIC BRONCHITIS WITH (ACUTE) EXACERBATION 06/03/2013 MADL GAMBRELER, COREY L 491.21 OBSTRUCTIVE CHRONIC BRONCHITIS WITH (ACUTE ) EXACERBATION 06/03/2013 MADL GAMBRELER, COREY L 491.21 OBSTRUCTIVE CHRONIC BRONCHITIS WITH (ACUTE ) EXACERBATION 06/03/2013 MADL GAMBRELER, COREY L 491.21 OBSTRUCTIVE CHRONIC BRONCHITIS WITH (ACUTE ) EXACERBATION 06/03/2013 SABIHA GAMBRELER, ANGIE S 491.21 OBSTRUCTIVE CHRONIC BRONCHITIS WITH ( ACUTE) EXACERBATION 06/03/2013 SABIHA GAMBRELER, ANGIE S 491.21 OBSTRUCTIVE CHRONIC BRONCHITIS WITH ( ACUTE) EXACERBATION 06/03/2013 MADL GAMBRELER, COREY L 491.21 OBSTRUCTIVE CHRONIC BRONCHITIS WITH (ACUTE ) EXACERBATION 06/03/2013 MADL GAMBRELER, COREY L 491.21 OBSTRUCTIVE CHRONIC BRONCHITIS WITH (ACUTE ) EXACERBATION 06/03/2013 ALVERTO MAGUIRE DO 491.21 OBSTRUCTIVE CHRONIC BRONCHITIS WITH (ACUTE) EXACERBATION 06/03/2013 MADL GAMBRELER, COREY L 491.21 OBSTRUCTIVE CHRONIC BRONCHITIS WITH (ACUTE ) EXACERBATION 06/03/2013 MADL GAMBRELER, COREY L 491.21 OBSTRUCTIVE CHRONIC BRONCHITIS WITH (ACUTE ) EXACERBATION 06/03/2013 MADL GAMBRELER, COREY L 491.21 OBSTRUCTIVE CHRONIC BRONCHITIS WITH (ACUTE ) EXACERBATION 06/22/2013 ALVERTO MAGUIRE DO 518.82 OTHER PULMONARY INSUFFICIENCY NOT ELSEWHERE CLASSIFIED 06/22/2013 ALVERTO MAGUIRE DO 518.82 OTHER PULMONARY INSUFFICIENCY NOT ELSEWHERE CLASSIFIED 06/22/2013 MAGUIRE DO, ALVERTO K 518.82 OTHER PULMONARY INSUFFICIENCY NOT ELSEWHERE CLASSIFIED 06/22/2013 MAGUIRE DO, ALVERTO K 518.82 OTHER PULMONARY INSUFFICIENCY NOT ELSEWHERE CLASSIFIED 06/22/2013 MADL GAMBRELER, COREY L 518.82 OTHER PULMONARY INSUFFICIENCY NOT ELSEWHERE CLASSIFIED 06/22/2013 MAGUIRE DO, ALVERTO K 518.82 OTHER PULMONARY INSUFFICIENCY NOT ELSEWHERE CLASSIFIED 06/22/2013 MAGUIRE DO, ALVERTO K 518.82 OTHER PULMONARY INSUFFICIENCY NOT ELSEWHERE CLASSIFIED 06/22/2013 MADL GAMBRELER, COREY L 518.82 OTHER PULMONARY INSUFFICIENCY NOT ELSEWHERE CLASSIFIED 06/22/2013 MADL GAMBRELER, COREY L 518.82 OTHER PULMONARY INSUFFICIENCY NOT ELSEWHERE CLASSIFIED 06/22/2013 MAGUIRE DO, ALVERTO K 518.82 OTHER PULMONARY INSUFFICIENCY NOT ELSEWHERE CLASSIFIED 06/22/2013 MAGUIRE DO, ALVERTO K 518.82 OTHER PULMONARY INSUFFICIENCY NOT ELSEWHERE CLASSIFIED 06/22/2013 MADL GAMBRELER, COREY L 518.82 OTHER PULMONARY INSUFFICIENCY NOT ELSEWHERE CLASSIFIED 06/22/2013 MAGUIRE DO, ALVERTO K 518.82 OTHER PULMONARY INSUFFICIENCY NOT ELSEWHERE CLASSIFIED 06/22/2013 MADL GAMBRELER, COREY L 518.82 OTHER PULMONARY INSUFFICIENCY NOT ELSEWHERE CLASSIFIED 06/22/2013 MADL GAMBRELER, COREY L 518.82 OTHER PULMONARY INSUFFICIENCY NOT ELSEWHERE CLASSIFIED 06/22/2013 MAGUIRE DO, ALVERTO K 518.82 OTHER PULMONARY INSUFFICIENCY NOT ELSEWHERE CLASSIFIED 06/22/2013 MAGUIRE DO, ALVERTO K 518.82 OTHER PULMONARY INSUFFICIENCY NOT ELSEWHERE CLASSIFIED 06/22/2013 MADL GAMBRELER, COREY L 518.82 OTHER PULMONARY INSUFFICIENCY NOT ELSEWHERE CLASSIFIED 06/22/2013 MAGUIRE DO, ALVERTO K 518.82 OTHER PULMONARY INSUFFICIENCY NOT ELSEWHERE CLASSIFIED 06/22/2013 GILMER GAMBRELER, BRYSON A 518.82 OTHER PULMONARY INSUFFICIENCY NOT ELSEWHERE CLASSIFIED 06/22/2013 MADL GAMBRELER, COREY L 518.82 OTHER PULMONARY INSUFFICIENCY NOT ELSEWHERE CLASSIFIED 06/22/2013 GILMER GAMBRELER, BRYSON A 518.82 OTHER PULMONARY INSUFFICIENCY NOT ELSEWHERE CLASSIFIED 06/22/2013 TWAN GAMBRELER, EDUARDO R 518.82 OTHER PULMONARY INSUFFICIENCY NOT ELSEWHERE CLASSIFIED 06/22/2013 MADL GAMBRELER, COREY L 518.82 OTHER PULMONARY INSUFFICIENCY NOT ELSEWHERE CLASSIFIED 06/22/2013 MADL GAMBRELER, COREY L 518.82 OTHER PULMONARY INSUFFICIENCY NOT ELSEWHERE CLASSIFIED 06/22/2013 MADL GAMBRELER, COREY L 518.82 OTHER PULMONARY INSUFFICIENCY NOT ELSEWHERE CLASSIFIED 06/22/2013 SABIHA GAMBRELER, ANGIE S 518.82 OTHER PULMONARY INSUFFICIENCY NOT ELSEWHERE CLASSIFIED 06/22/2013 SABIHA GAMBRELER, ANGIE S 518.82 OTHER PULMONARY INSUFFICIENCY NOT ELSEWHERE CLASSIFIED 06/22/2013 MADL GAMBRELER, COREY L 518.82 OTHER PULMONARY INSUFFICIENCY NOT ELSEWHERE CLASSIFIED 06/22/2013 MADL GAMBRELER, COREY L 518.82 OTHER PULMONARY INSUFFICIENCY NOT ELSEWHERE CLASSIFIED 06/22/2013 ALVERTO MAGUIRE DO K 518.82 OTHER PULMONARY INSUFFICIENCY NOT ELSEWHERE CLASSIFIED 06/22/2013 MADL GAMBRELER, COREY L 518.82 OTHER PULMONARY INSUFFICIENCY NOT ELSEWHERE CLASSIFIED 06/22/2013 MADL GAMBRELER, COREY L 518.82 OTHER PULMONARY INSUFFICIENCY NOT ELSEWHERE CLASSIFIED 06/22/2013 MADL GAMBRELER, COREY L 518.82 OTHER PULMONARY INSUFFICIENCY NOT [...] BODY MASS INDEX 35.0-35.9, ADULT 08/10/2013 MADL GAMBRELER, COREY L 785.1 PALPITATIONS 08/10/2013 MADL GAMBRELER, COREY L 785.1 PALPITATIONS 08/10/2013 MAGUIRE DO, ALVERTO K 785.1 PALPITATIONS 08/10/2013 MAGUIRE DO, ALVERTO K 785.1 PALPITATIONS 08/10/2013 MADL GAMBRELER, COREY L 785.1 PALPITATIONS 08/10/2013 MAGUIRE DO, ALVERTO K 785.1 PALPITATIONS 08/10/2013 MADL GAMBRELER, COREY L 785.1 PALPITATIONS 08/10/2013 MADL GAMBRELER, COREY L 785.1 PALPITATIONS 08/10/2013 MAGUIRE DO, ALVERTO K 785.1 PALPITATIONS 08/10/2013 MAGUIRE DO, ALVERTO K 785.1 PALPITATIONS 08/10/2013 MADL GAMBRELER, COREY L 785.1 PALPITATIONS 08/10/2013 MAGUIRE DO, ALVERTO K 785.1 PALPITATIONS 08/10/2013 GILMER GAMBRELER, BRYSON A 785.1 PALPITATIONS 08/10/2013 MADL GAMBRELER, COREY L 785.1 PALPITATIONS 08/10/2013 GILMER GAMBRELER, BRYSON A 785.1 PALPITATIONS 08/10/2013 TRENT GAMBRELER, EDUARDO R 785.1 PALPITATIONS 08/10/2013 MADL GAMBRELER, COREY L 785.1 PALPITATIONS 08/10/2013 MADL GAMBRELER, COREY L 785.1 PALPITATIONS 08/10/2013 MADL GAMBRELER, COREY L 785.1 PALPITATIONS 08/10/2013 SABIHA GAMBRELER, ANGIE S 785.1 PALPITATIONS 08/10/2013 SABIHA GAMBRELER, ANGIE S 785.1 PALPITATIONS 08/10/2013 MADL GAMBRELER, COREY L 785.1 PALPITATIONS 08/10/2013 MADL GAMBRELER, COREY L 785.1 PALPITATIONS 08/10/2013 MAGUIRE DO, ALVERTO K 785.1 PALPITATIONS 08/10/2013 MADL GAMBRELER, COREY L 785.1 PALPITATIONS 08/10/2013 MADL GAMBRELER, COREY L 785.1 PALPITATIONS 08/10/2013 MADL GAMBRELER, COREY L 785.1 PALPITATIONS 09/08/2013 MAGUIRE DO, ALVERTO K 401.9 HYPERTENSION, UNSPECIFIED ESSENTIAL 09/08/2013 MAGUIRE DO, ALVERTO K 786.05 SHORTNESS OF BREATH 09/08/2013 MAGUIRE DO, ALVERTO K 786.09 DYSPNEA 09/08/2013 MADL GAMBRELER, COREY L 401.9 HYPERTENSION, UNSPECIFIED ESSENTIAL 09/08/2013 MADL GAMBRELER, COREY L 786.05 SHORTNESS OF BREATH 09/08/2013 MADL GAMBRELER, COREY L 786.09 DYSPNEA 09/08/2013 MAGUIRE DO, ALVERTO K 401.9 HYPERTENSION, UNSPECIFIED ESSENTIAL 09/08/2013 MAGUIRE DO, ALVERTO K 786.05 SHORTNESS OF BREATH 09/08/2013 MAGUIRE DO, ALVERTO K 786.09 DYSPNEA 09/08/2013 MADL GAMBRELER, COREY L 401.9 HYPERTENSION, UNSPECIFIED ESSENTIAL 09/08/2013 MADL GAMBRELER, COREY L 786.05 SHORTNESS OF BREATH 09/08/2013 MADL GAMBRELER, COREY L 786.09 DYSPNEA 09/08/2013 MADL GAMBRELER, COREY L 401.9 HYPERTENSION, UNSPECIFIED ESSENTIAL 09/08/2013 MADL GAMBRELER, COREY L 786.05 SHORTNESS OF BREATH 09/08/2013 MADL GAMBRELER, COREY L 786.09 DYSPNEA 09/08/2013 MAGUIRE DO, ALVERTO K 401.9 HYPERTENSION, UNSPECIFIED ESSENTIAL 09/08/2013 MAGUIRE DO, ALVERTO K 786.05 SHORTNESS OF BREATH 09/08/2013 MAGUIRE DO, ALVERTO K 786.09 DYSPNEA 09/08/2013 MAGUIRE DO, ALVERTO K 401.9 HYPERTENSION, UNSPECIFIED ESSENTIAL 09/08/2013 MAGUIRE DO, ALVERTO K 786.05 SHORTNESS OF BREATH 09/08/2013 MAGUIRE DO, ALVERTO K 786.09 DYSPNEA 09/08/2013 MADL GAMBRELER, COREY L 401.9 HYPERTENSION, UNSPECIFIED ESSENTIAL 09/08/2013 MADL GAMBRELER, COREY L 786.05 SHORTNESS OF BREATH 09/08/2013 MADL GAMBRELER, COREY L 786.09 DYSPNEA 09/08/2013 MAGUIRE DO, ALVERTO K 401.9 HYPERTENSION, UNSPECIFIED ESSENTIAL 09/08/2013 MAGUIRE DO, ALVERTO K 786.05 SHORTNESS OF BREATH 09/08/2013 MAGUIRE DO, ALVERTO K 786.09 DYSPNEA 09/08/2013 GILMER GAMBRELER, BRYSON A 401.9 HYPERTENSION, UNSPECIFIED ESSENTIAL 09/08/2013 GILMER GAMBRELER, BRYSON A 786.05 SHORTNESS OF BREATH 09/08/2013 GILMER GAMBRELER, BRYSON A 786.09 DYSPNEA 09/08/2013 MADL GAMBRELER, COREY L 401.9 HYPERTENSION, UNSPECIFIED ESSENTIAL 09/08/2013 MADL GAMBRELER, COREY L 786.05 SHORTNESS OF BREATH 09/08/2013 MADL GAMBRELER, COREY L 786.09 DYSPNEA 09/08/2013 GILMER GAMBRELER, BRYSON A 401.9 HYPERTENSION, UNSPECIFIED ESSENTIAL 09/08/2013 GILMER GAMBRELER, BRYSON A 786.05 SHORTNESS OF BREATH 09/08/2013 GILMER GAMBRELER, BRYSON A 786.09 DYSPNEA 09/08/2013 EDUARDO TRENT APRN R 401.9 HYPERTENSION, UNSPECIFIED ESSENTIAL 09/08/2013 TWAN GAMBRELER, EDUARDO R 786.05 SHORTNESS OF BREATH 09/08/2013 TRENT GAMBRELER, EDUARDO R 786.09 DYSPNEA 09/08/2013 MADL GAMBRELER, COREY L 401.9 HYPERTENSION, UNSPECIFIED ESSENTIAL 09/08/2013 MADL GAMBRELER, COREY L 786.05 SHORTNESS OF BREATH 09/08/2013 MADL GAMBRELER, COREY L 786.09 DYSPNEA 09/08/2013 MADL GAMBRELER, COREY L 401.9 HYPERTENSION, UNSPECIFIED ESSENTIAL 09/08/2013 MADL GAMBRELER, COREY L 786.05 SHORTNESS OF BREATH 09/08/2013 MADL GAMBRELER, COREY L 786.09 DYSPNEA 09/08/2013 MADL GAMBRELER, COREY L 401.9 HYPERTENSION, UNSPECIFIED ESSENTIAL 09/08/2013 MADL GAMBRELER, COREY L 786.05 SHORTNESS OF BREATH 09/08/2013 MADL GAMBRELER, COREY L 786.09 DYSPNEA 09/08/2013 SABIHA GAMBRELER, ANGIE S 401.9 HYPERTENSION, UNSPECIFIED ESSENTIAL 09/08/2013 SABIHA GAMBRELER, ANGIE S 786.05 SHORTNESS OF BREATH 09/08/2013 SABIHA GAMBRELER, ANGIE S 786.09 DYSPNEA 09/08/2013 SABIHA GAMBRELER, ANGIE S 401.9 HYPERTENSION, UNSPECIFIED ESSENTIAL 09/08/2013 SABIHA GAMBRELER, ANGIE S 786.05 SHORTNESS OF BREATH 09/08/2013 SABIHA GAMBRELER, ANGIE S 786.09 DYSPNEA 09/08/2013 MADL GAMBRELER, COREY L 401.9 HYPERTENSION, UNSPECIFIED ESSENTIAL 09/08/2013 MADL GAMBRELER, COREY L 786.05 SHORTNESS OF BREATH 09/08/2013 MADL GAMBRELER, COREY L 786.09 DYSPNEA 09/08/2013 MADL GAMBRELER, COREY L 401.9 HYPERTENSION, UNSPECIFIED ESSENTIAL 09/08/2013 MADL GAMBRELER, COREY L 786.05 SHORTNESS OF BREATH 09/08/2013 MADL GAMBRELER, COREY L 786.09 DYSPNEA 09/08/2013 MAGUIRE DO, ALVERTO K 401.9 HYPERTENSION, UNSPECIFIED ESSENTIAL 09/08/2013 MAGUIRE DO ALVERTO K 786.05 SHORTNESS OF BREATH 09/08/2013 MAGUIRE DO, ALVRETO K 786.09 DYSPNEA 09/08/2013 MADL GAMBRELER, COREY L 401.9 HYPERTENSION, UNSPECIFIED ESSENTIAL 09/08/2013 MADL GAMBRELER, COREY L 786.05 SHORTNESS OF BREATH 09/08/2013 MADL GAMBRELER, COREY L 786.09 DYSPNEA 09/08/2013 MADL GAMBRELER, COREY L 401.9 HYPERTENSION, UNSPECIFIED ESSENTIAL 09/08/2013 MADL GAMBRELER, COREY L 786.05 SHORTNESS OF BREATH 09/08/2013 MADL GAMBRELER, COREY L 786.09 DYSPNEA 09/08/2013 MADL GAMBRELER, COREY L 401.9 HYPERTENSION, UNSPECIFIED ESSENTIAL 09/08/2013 MADL GAMBRELER, COREY L 786.05 SHORTNESS OF BREATH 09/08/2013 MADL GAMBRELER, COREY L 786.09 DYSPNEA 11/10/2013 MADL GAMBRELER, COREY L 250.90 DIABETES TYPE 2 W/ COMPLICATIONS (UNSPEC) 11/10/2013 MADL GAMBRELER, COREY L 786.50 CHEST PAIN 11/10/2013 ANDREZ RAMSEY, ALVERTO K 250.90 DIABETES TYPE 2 W/ COMPLICATIONS (UNSPEC) 11/10/2013 ANDREZ RAMSEY, ALVERTO K 786.50 CHEST PAIN 11/10/2013 GILMER GAMBRELER, BRYSON A 250.90 DIABETES TYPE 2 W/ COMPLICATIONS (UNSPEC ) 11/10/2013 GILMER GAMBRELER, BRYSON A 786.50 CHEST PAIN 11/10/2013 MADL GAMBRELER, COREY L 250.90 DIABETES TYPE 2 W/ COMPLICATIONS (UNSPEC) 11/10/2013 MADL GAMBRELER, COREY L 786.50 CHEST PAIN 11/10/2013 GILMER GAMBRELER, BRYSON A 250.90 DIABETES TYPE 2 W/ COMPLICATIONS (UNSPEC ) 11/10/2013 GILMER GAMBRELER, BRYSON A 786.50 CHEST PAIN 11/10/2013 CHIKI TRENT APRNRICIA R 250.90 DIABETES TYPE 2 W/ COMPLICATIONS ( UNSPEC) 11/10/2013 SHOLA TRENT APRNIA R 786.50 CHEST PAIN 11/10/2013 MADL GAMBRELER, COREY L 250.90 DIABETES TYPE 2 W/ COMPLICATIONS (UNSPEC) 11/10/2013 MADL GAMBRELER, COREY L 786.50 CHEST PAIN 11/10/2013 MADL GAMBRELER, COREY L 250.90 DIABETES TYPE 2 W/ COMPLICATIONS (UNSPEC) 11/10/2013 MADL GAMBRELER, COREY L 786.50 CHEST PAIN 11/10/2013 MADL GAMBRELER, COREY L 250.90 DIABETES TYPE 2 W/ COMPLICATIONS (UNSPEC) 11/10/2013 MADL GAMBRELER, COREY L 786.50 CHEST PAIN 11/10/2013 SABIHA GAMBRELER, ANGIE S 250.90 DIABETES TYPE 2 W/ COMPLICATIONS ( UNSPEC) 11/10/2013 SABIHA GAMBRELER, ANGIE S 786.50 CHEST PAIN 11/10/2013 SABIHA GAMBRELER, ANGIE S 250.90 DIABETES TYPE 2 W/ COMPLICATIONS ( UNSPEC) 11/10/2013 SABIHA GAMBRELER, ANGIE S 786.50 CHEST PAIN 11/10/2013 MADL GAMBRELER, COREY L 250.90 DIABETES TYPE 2 W/ COMPLICATIONS (UNSPEC) 11/10/2013 MADL GAMBRELER, COREY L 786.50 CHEST PAIN 11/10/2013 MADL GAMBRELER, COREY L 250.90 DIABETES TYPE 2 W/ COMPLICATIONS (UNSPEC) 11/10/2013 MADL GAMBRELER, COREY L 786.50 CHEST PAIN 11/10/2013 MAGUIRE DO, ALVERTO K 250.90 DIABETES TYPE 2 W/ COMPLICATIONS (UNSPEC) 11/10/2013 MAGUIRE DO, ALVERTO K 786.50 CHEST PAIN 11/10/2013 MADL GAMBRELER, COREY L 250.90 DIABETES TYPE 2 W/ COMPLICATIONS (UNSPEC) 11/10/2013 MADL GAMBRELER, COREY L 786.50 CHEST PAIN 11/10/2013 MADL GAMBRELER, COREY L 250.90 DIABETES TYPE 2 W/ COMPLICATIONS (UNSPEC) 11/10/2013 MADL GAMBRELER, COREY L 786.50 CHEST PAIN 11/10/2013 MADL GAMBRELER, COREY L 250.90 DIABETES TYPE 2 W/ COMPLICATIONS (UNSPEC) 11/10/2013 MADL GAMBRELER, COREY L 786.50 CHEST PAIN 11/12/2013 MADL GAMBRELER, COREY L 461.9 SINUSITIS ACUTE 11/12/2013 PAUL MAGUIRE DOA K 461.9 SINUSITIS ACUTE 11/12/2013 GILMER GAMBRELER, BRYSON A 461.9 SINUSITIS ACUTE 11/12/2013 MADL GAMBRELER, COREY L 461.9 SINUSITIS ACUTE 11/12/2013 GILMER GAMBRELER, BRYSON A 461.9 SINUSITIS ACUTE 11/12/2013 TWAN GAMBRELER, EDUARDO R 461.9 SINUSITIS ACUTE 11/12/2013 MADL GAMBRELER, COREY L 461.9 SINUSITIS ACUTE 11/12/2013 MADL GAMBRELER, COREY L 461.9 SINUSITIS ACUTE 11/12/2013 MADL GAMBRELER, COREY L 461.9 SINUSITIS ACUTE 11/12/2013 SABIHA GAMBRELER, ANGIE S 461.9 SINUSITIS ACUTE 11/12/2013 SABIHA GAMBRELER, ANGIE S 461.9 SINUSITIS ACUTE 11/12/2013 MADL GAMBRELER, COREY L 461.9 SINUSITIS ACUTE 11/12/2013 MADL GAMBRELER, COREY L 461.9 SINUSITIS ACUTE 11/12/2013 ANDREZ DOPAULA K 461.9 SINUSITIS ACUTE 11/12/2013 MADL GAMBRELER, COREY L 461.9 SINUSITIS ACUTE 11/12/2013 MADL GAMBRELER, COREY L 461.9 SINUSITIS ACUTE 11/12/2013 MADL GAMBRELER, COREY L 461.9 SINUSITIS ACUTE 11/19/2013 GAGE MARSHALL FACC, SHRUTHI FACP CCDS Ot 250.00 DIAB AVELINA WO COMPL, TYPE II OR UNSPEC TY 11/19/2013 SHRUTHI MANUEL MD, FACC FACP CCDS Ot 272.4 HYPERLIPIDEMIA NEC/NOS 11/19/2013 SHRUTHI MANUEL MD, FACC FACP CCDS Ot 401.9 HYPERTENSION NOS 11/19/2013 GAGE MARSHALL FACC, SHRUTHI FACP CCDS Ot 414.01 CORONARY ATHEROSCLEROSIS OF [place] CORON 11/19/2013 SHRUTHI MANUEL MD, FACCP CCDS [...] Ot V58.69 OTH MED,LT,CURRENT USE 12/23/2013 GILMER GAMBRELER, BRYSON A 564.00 UNSPECIFIED CONSTIPATION 12/23/2013 MADL GAMBRELER, COREY L 564.00 UNSPECIFIED CONSTIPATION 12/23/2013 GILMER GAMBRELER, BRYSON A 564.00 UNSPECIFIED CONSTIPATION 12/23/2013 EDUARDO TRENT APRN R 564.00 UNSPECIFIED CONSTIPATION 12/23/2013 MADL GAMBRELER, COREY L 564.00 UNSPECIFIED CONSTIPATION 12/23/2013 MADL GAMBRELER, COREY L 564.00 UNSPECIFIED CONSTIPATION 12/23/2013 MADL GAMBRELER, COREY L 564.00 UNSPECIFIED CONSTIPATION 12/23/2013 SABIHA GAMBRELER, ANGIE S 564.00 UNSPECIFIED CONSTIPATION 12/23/2013 SABIHA GAMBRELER, ANGIE S 564.00 UNSPECIFIED CONSTIPATION 12/23/2013 MADL GAMBRELER, COREY L 564.00 UNSPECIFIED CONSTIPATION 12/23/2013 MADL GAMBRELER, COREY L 564.00 UNSPECIFIED CONSTIPATION 12/23/2013 ANDREZ DO, ALVERTO K 564.00 UNSPECIFIED CONSTIPATION 12/23/2013 MADL GAMBRELER, COREY L 564.00 UNSPECIFIED CONSTIPATION 12/23/2013 MADL GAMBRELER, COREY L 564.00 UNSPECIFIED CONSTIPATION 12/23/2013 MADL GAMBRELER, COREY L 564.00 UNSPECIFIED CONSTIPATION 12/31/2013 MADL GAMBRELER, COREY L V04.81 FLU SHOT 12/31/2013 GILMER CASTRO BRYSON A V04.81 FLU SHOT 12/31/2013 SHOLA TRENT APRNIA R V04.81 FLU SHOT 12/31/2013 MADL GAMBRELER, COREY L V04.81 FLU SHOT 12/31/2013 MADL GAMBRELER, COREY L V04.81 FLU SHOT 12/31/2013 MADL GAMBRELER, COREY L V04.81 FLU SHOT 12/31/2013 SABIHA GAMBRELER, ANGIE S V04.81 FLU SHOT 12/31/2013 SABIHA GAMBRELER, ANGIE S V04.81 FLU SHOT 12/31/2013 MADL GAMBRELER, COREY L V04.81 FLU SHOT 12/31/2013 MADL GAMBRELER, COREY L V04.81 FLU SHOT 12/31/2013 MAGUIRE DO, ALVERTO K V04.81 FLU SHOT 12/31/2013 MADL GAMBRELER, COREY L V04.81 FLU SHOT 12/31/2013 MADL GAMBRELER, COREY L V04.81 FLU SHOT 12/31/2013 MADL GAMBRELER, COREY L V04.81 FLU SHOT 01/05/2014 GILMER GAMBRELER, BRYSON A V72.31 ENZYME CHEMIST EXAM, ROUTINE 01/05/2014 GILMER GAMBRELER, BRYSON A V76.10 BREAST CANCER SCREENING 01/05/2014 TRENT GAMBRELER, EDUARDO R V72.31 ENZYME CHEMIST EXAM, ROUTINE 01/05/2014 TRENT GAMBRELER, EDUARDO R V76.10 BREAST CANCER SCREENING 01/05/2014 MADL GAMBRELER, COREY L V72.31 ENZYME CHEMIST EXAM, ROUTINE 01/05/2014 MADL GAMBRELER, COREY L V76.10 BREAST CANCER SCREENING 01/05/2014 MADL GAMBRELER, COREY L V72.31 ENZYME CHEMIST EXAM, ROUTINE 01/05/2014 MADL GAMBRELER, COREY L V76.10 BREAST CANCER SCREENING 01/05/2014 MADL GAMBRELER, COREY L V72.31 ENZYME CHEMIST EXAM, ROUTINE 01/05/2014 MADL GAMBRELER, COREY L V76.10 BREAST CANCER SCREENING 01/05/2014 SABIHA GAMBRELER, ANGIE S V72.31 ENZYME CHEMIST EXAM, ROUTINE 01/05/2014 SABIHA GAMBRELER, ANGIE S V76.10 BREAST CANCER SCREENING 01/05/2014 SABIHA GAMBRELER, ANGIE S V72.31 ENZYME CHEMIST EXAM, ROUTINE 01/05/2014 SABIHA GAMBRELER, ANGIE S V76.10 BREAST CANCER SCREENING 01/05/2014 MADL GAMBRELER, COREY L V72.31 ENZYME CHEMIST EXAM, ROUTINE 01/05/2014 MADL GAMBRELER, COREY L V76.10 BREAST CANCER SCREENING 01/05/2014 MADL GAMBRELER, COREY L V72.31 ENZYME CHEMIST EXAM, ROUTINE 01/05/2014 MADL GAMBRELER, COREY L V76.10 BREAST CANCER SCREENING 01/05/2014 MAGUIRE DO, ALVERTO K V72.31 ENZYME CHEMIST EXAM, ROUTINE 01/05/2014 MAGUIRE DO, ALVERTO K V76.10 BREAST CANCER SCREENING 01/05/2014 MADL GAMBRELER, COREY L V72.31 ENZYME CHEMIST EXAM, ROUTINE 01/05/2014 MADL GAMBRELER, COREY L V76.10 BREAST CANCER SCREENING 01/05/2014 MADL GAMBRELER, COREY L V72.31 ENZYME CHEMIST EXAM, ROUTINE 01/05/2014 MADL GAMBRELER, COREY L V76.10 BREAST CANCER SCREENING 01/05/2014 MADL GAMBRELER, COREY L V72.31 ENZYME CHEMIST EXAM, ROUTINE 01/05/2014 MADL GAMBRELER, COREY L V76.10 BREAST CANCER SCREENING 02/01/2014 CATARINO INTERIANO GAMBRELER Ot 729.5 PAIN IN LIMB 02/03/2014 BRYSON SCHERER GAMBRELER Ot V76.12 02/07/2014 RACHAEL MARSHALL, WILL Martin Ot 723.1 02/07/2014 RACHAEL MARSHALL, WILL Martin Ot 784.2 02/07/2014 ZELALEM SUMMERS DO Ot 327.23 02/07/2014 ZELALEM SUMMERS DO Ot 493.20 02/07/2014 GAGE MARSHALL [facility], ALI FACP CCDS Ot 272.4 02/07/2014 GAGE MARSHALL FAC, ALI FACP CCDS Ot 414.00 02/07/2014 BRYSON SCHERER GAMBRELER Ot V76.12 02/07/2014 FFII NELSON MD Ot 723.0 02/07/2014 RICKEY ROTH PRODUCTION ADMINISTRATIVE ASSISTANT Ot 272.4 02/10/2014 BRYSON SCHERER GAMBRELER Ot V76.12 02/16/2014 FIFI NELSON MD J Ot 723.0 02/22/2014 MADL GAMBRELER, COREY L 728.85 SPASM OF MUSCLE 02/22/2014 SABIHA GAMBRELER, ANGIE S 728.85 SPASM OF MUSCLE 02/22/2014 SABIHA GAMBRELER, ANGIE S 728.85 SPASM OF MUSCLE 02/22/2014 MADL GAMBRELER, COREY L 728.85 SPASM OF MUSCLE 02/22/2014 MADL GAMBRELER, COREY L 728.85 SPASM OF MUSCLE 02/22/2014 MAGUIRE PAUL RAMSEYA K 728.85 SPASM OF MUSCLE 02/22/2014 MADL GAMBRELER, COREY L 728.85 SPASM OF MUSCLE 02/22/2014 MADL GAMBRELER, COREY L 728.85 SPASM OF MUSCLE 02/22/2014 MADL GAMBRELER, COREY L 728.85 SPASM OF MUSCLE 03/01/2014 RICKEY ROTH PRODUCTION ADMINISTRATIVE ASSISTANT Ot 272.4 03/02/2014 GAGE PACKERC, ALI FACP [...] NELSON MD Ot 723.0 03/11/2014 RICKEY ROTH PRODUCTION ADMINISTRATIVE ASSISTANT Ot 272.4 03/23/2014 GAGE PACKERC, ALI FACP CCDS Ot 250.00 03/23/2014 GAGE PACKERC, ALI FACP CCDS Ot 272.4 03/23/2014 GAGE PACKERC, ALI FACP CCDS Ot 278.00 03/23/2014 GAGE PACKERC, ALI FACP CCDS Ot 327.23 03/23/2014 GAGE PACKERC, ALI FACP CCDS Ot 414.00 03/23/2014 GAGE PACKERC, ALI FACP CCDS Ot 496 03/23/2014 GAGE MARSHALL [facility], ALI FACP CCDS Ot 729.5 03/31/2014 GAGE MARSHALL [facility], ALI FACP CCDS Ot 250.00 03/31/2014 GAGE MARSHALL [facility], ALI FACP CCDS Ot 272.4 03/31/2014 GAGE MARSHALL [facility], ALI FACP CCDS Ot 278.00 03/31/2014 GAGE MARSHALL [facility], ALI FACP CCDS Ot 327.23 03/31/2014 GAGE MARSHALL [facility], ALI FACP CCDS Ot 414.00 03/31/2014 GAGE MARSHALL [facility], ALI FACP CCDS Ot 496 03/31/2014 GAGE MARSHALL [facility], ALI FACP CCDS Ot 729.5 04/03/2014 MALIA RAMÍREZ Ot 487.1 FLU W RESP MANIFEST NEC 04/03/2014 MALIA RAMÍREZ Ot 491.21 OBSTR CHRONIC BRONCHITIS, W (ACUTE) EXAC 04/03/2014 MALIA RAMÍREZ Ot 786.2 COUGH 05/02/2014 RICKEY ROTH PRODUCTION ADMINISTRATIVE ASSISTANT Ot 414.00 05/02/2014 BAIMA, RICKEY L PRODUCTION ADMINISTRATIVE ASSISTANT Ot 785.1 05/10/2014 BAIMA, RICKEY L PRODUCTION ADMINISTRATIVE ASSISTANT Ot 414.00 05/10/2014 BAIMA, RICKEY L PRODUCTION ADMINISTRATIVE ASSISTANT Ot 785.1 06/15/2014 WILL CANO MD Ot 723.1 06/15/2014 WILL CANO MD Ot 784.2 06/24/2014 MADL GAMBRELER, COREY L 716.90 ARTHRITIS/ ARTHROPATHY, UNSPECIFIED 06/24/2014 MADL GAMBRELER, COREY L 729.1 MYALGIA AND MYOSITIS UNSPECIFIED 06/24/2014 MADL GAMBRELER, COREY L 716.90 ARTHRITIS/ ARTHROPATHY, UNSPECIFIED 06/24/2014 MADL GAMBRELER, COREY L 729.1 MYALGIA AND MYOSITIS UNSPECIFIED 06/24/2014 MADL GAMBRELER, COREY L 716.90 ARTHRITIS/ ARTHROPATHY, UNSPECIFIED 06/24/2014 MADL GAMBRELER, COREY L 729.1 MYALGIA AND MYOSITIS UNSPECIFIED [...] FIFI Pedraza Ot 723.0 07/01/2014 RICKEY ROTH PRODUCTION ADMINISTRATIVE ASSISTANT Ot 272.4 07/01/2014 GAGE MARSHALL FACC, ALI [...] FACP CCDS Ot 729.5 07/01/2014 RICKEY ROTH PRODUCTION ADMINISTRATIVE ASSISTANT Ot 414.00 07/01/2014 RICKEY ROTH PRODUCTION ADMINISTRATIVE ASSISTANT Ot 785.1 07/01/2014 MAGUIRE DO ALVERTO K Ot 491.21 07/01/2014 MAGUIRE DO, ALVERTO K Ot 518.81 07/02/2014 MAGUIRE DO, ALVERTO K Ot 491.21 07/02/2014 MAGUIRE DO, ALVERTO K Ot 518.81 07/02/2014 MAGUIRE DO, ALVERTO K Ot 491.21 07/02/2014 PAUL MAGUIRE DOA Danyell Ot 518.81 07/03/2014 MAGUIRE PAUL RAMSEYA K Ot 491.21 07/03/2014 PAUL MAGUIRE DOA K Ot 518.81 07/04/2014 PAUL MAGUIRE [...] ZELALEM SUMMERS DO Ot 493.20 07/27/2014 GAGE AMRSHALL FAC, SHRUTHI PACKERP CCDS Ot 272.4 07/27/2014 GAGE MARSHALL FACC, SHRUTHI PACKERP CCDS Ot 414.00 07/27/2014 BRYSON SCHERER APRN Ot V76.12 07/27/2014 FIFI NELSON MD Ot 723.0 07/27/2014 RICKEY ROTH PRODUCTION ADMINISTRATIVE ASSISTANT Ot 272.4 07/27/2014 GAGE MARSHALL FACC, ALI OCHOAP CCDS Ot 250.00 07/27/2014 GAGE MARSHALL FACC, ALI FACP CCDS Ot 272.4 07/27/2014 GAGE MARSHALL [facility], ALI FACP CCDS Ot 278.00 07/27/2014 GAGE MARSHALL [facility], ALI FACP CCDS Ot 327.23 07/27/2014 GAGE MARSHALL [facility], ALI FACP CCDS Ot 414.00 07/27/2014 GAGE MARSHALL [facility], ALI FACP CCDS Ot 496 07/27/2014 GAGE MARSHALL [facility], ALI FACP CCDS Ot 729.5 07/27/2014 BUFFYRICKEY DOWNS Daxa PRODUCTION ADMINISTRATIVE ASSISTANT Ot 414.00 07/27/2014 BUFFYYARELI RICKEY L PRODUCTION ADMINISTRATIVE ASSISTANT Ot 785.1 08/22/2014 MELINA DO, ZELALEM M Ot 278.00 08/22/2014 MELINA DO, ZELALEM M Ot 327.23 08/22/2014 MELINA DO, ZELALEM M Ot 493.90 09/05/2014 MELINA DO, ZELALEM M Ot 278.00 09/05/2014 MELINA DO, ZELALEM M Ot 327.23 09/05/2014 MELINA DO, ZELALEM M Ot 493.90 11/27/2014 MELINA DO, ZELALEM M Ot 278.00 11/27/2014 MELINA DO, ZELALEM M Ot 327.23 11/27/2014 MELINA DO, ZELALEM M Ot 493.90 11/27/2014 GAGE MARSHALL [facility], ALI FACP CCDS Ot 250.60 11/27/2014 GAGE MARSHALL [facility], ALI FACP CCDS Ot 272.4 11/27/2014 GAGE MARSHALL [facility], ALI FACP CCDS Ot 278.00 11/27/2014 GAGE MARSHALL [facility], ALI FACP CCDS Ot 327.23 11/27/2014 GAGE MARSHALL [facility], ALI FACP CCDS Ot 357.2 11/27/2014 GAGE MARSHALL [facility], ALI FACP CCDS Ot 414.00 11/27/2014 GAGE MARSHALL [facility], ALI FACP CCDS Ot 433.10 11/27/2014 GAGE MARSHALL [facility], ALI FACP CCDS Ot 496 11/27/2014 CATARINO INTERIANO GAMBRELER Ot 306.4 PSYCHOGENIC GI DISEASE 11/27/2014 CATARINO [...] CCDS Ot 496 01/23/2015 MADL, COREY L PRODUCTION ADMINISTRATIVE ASSISTANT Ot Z12.31 01/24/2015 MADL, COREY L PRODUCTION ADMINISTRATIVE ASSISTANT Ot Z12.31 02/08/2015 MADL, COREY L PRODUCTION ADMINISTRATIVE ASSISTANT Ot Z12.31 02/11/2015 TRACY MARSHALL, WAGNER Castorena [...] NELSON MD Ot 723.0 02/11/2015 RICKEY ROTH PRODUCTION ADMINISTRATIVE ASSISTANT Ot 272.4 02/11/2015 GAGE MARSHALL FACC, ALI [...] FACP CCDS Ot 729.5 02/11/2015 RICKEY ROTH PRODUCTION ADMINISTRATIVE ASSISTANT Ot 414.00 02/11/2015 RICKEY ROTH PRODUCTION ADMINISTRATIVE ASSISTANT Ot 785.1 02/11/2015 MELINA RAMSEY ZELALEM Mario [...] CCDS Ot 496 02/11/2015 LARRY COREY L PRODUCTION ADMINISTRATIVE ASSISTANT Ot Z12.31 02/13/2015 PAUL MAGUIRE DOA Danyell [...] K Ot I25.10 ATHSCL HEART DISEASE OF [place] CORONARY 02/13/2015 PAUL MAGUIRE DOA K Ot [...] OF NICOTINE DEPENDENCE 02/13/2015 LEONORA JUAREZA Daxa PRODUCTION ADMINISTRATIVE ASSISTANT Ot Z12.31 04/12/2015 CRYSTAL SANTIAGO MD Ot E11.9 TYPE 2 DIABETES MELLITUS WITHOUT COMPLIC 04/12/2015 CRYSTAL SANTIAGO MD Ot E66.9 OBESITY, UNSPECIFIED 04/12/2015 CRYSTAL SANTIAGO MD Ot F41.9 ANXIETY DISORDER, UNSPECIFIED 04/12/2015 CRYSTAL SANTIAGO MD Ot G47.33 OBSTRUCTIVE SLEEP APNEA (ADULT) (PEDIATR 04/12/2015 CRYSTAL SANTIAGO MD Ot I10 ESSENTIAL (PRIMARY) HYPERTENSION 04/12/2015 CRYSTAL SANTIAGO MD Ot I25.10 ATHSCL HEART DISEASE OF [place] CORONARY 04/12/2015 CRYSTAL ASNTIAGO MD Ot J38.3 OTHER DISEASES OF VOCAL [...] ADULT 04/12/2015 CRYSTAL SANTIAGO MD Ot Z79.02 [employer] (CURRENT) USE OF ANTITHROMBOTI 04/12/2015 CRYSTAL SANTIAGO MD Ot Z87.891 PERSONAL HISTORY OF NICOTINE DEPENDENCE 04/12/2015 CRYSTAL SANTIAGO MD Ot Z95.5 PRESENCE OF CORONARY ANGIOPLASTY IMPLANT 04/26/2015 GAGE MARSHALL FACC, ALI FACP CCDS Ot E11.9 04/26/2015 GAGE MARSHALL FACC, ALI FACP CCDS Ot E78.5 05/03/2015 CRYSTAL SANTIAGO MD Ot E11.9 05/03/2015 CRYSTAL SANTIAGO MD Ot E66.9 05/03/2015 CRYSTAL SANTIAGO MD Ot F41.9 05/03/2015 CRYSTAL SANTIAGO MD [...] CRYSTAL N Ot J96.20 05/04/2015 JACK MARSHALL, CRYTSAL N Ot M06.9 05/04/2015 JACK MARSHALL, CRYSTAL [...] MARSHALL, CRYSTAL N Ot Z95.5 05/08/2015 JACK MRASHALL, CRYSTAL N Ot E11.9 05/08/2015 JACK MARSHALL, [...] JACK MARSHALL, CRYSTAL N Ot E11.9 05/08/2015 JAKC MARSHALL, CRYSTAL N Ot E66.01 05/08/2015 JACK [...] CRYSTAL N Ot Z95.5 05/09/2015 JACK MARSHALL, CRYSATL N Ot E11.9 05/09/2015 JACK MARSHALL, CRYSTAL [...] MD Ot I25.10 ATHSCL HEART DISEASE OF [place] CORONARY 05/09/2015 CRYSTAL SANTIAGO MD Ot J15.211 [...] 05/10/2015 ZELALEM SUMMERS DO Ot J38.3 05/10/2015 EZLALEM SUMMERS DO Ot J45.909 05/12/2015 CATARINO INTERIANO [...] NELSON MD Ot 723.0 05/12/2015 RICKEY ROTH PRODUCTION ADMINISTRATIVE ASSISTANT Ot 272.4 05/12/2015 GAGE MARSHALL FACC, ALI [...] FACP CCDS Ot 729.5 05/12/2015 RICKEY ROTH PRODUCTION ADMINISTRATIVE ASSISTANT Ot 414.00 05/12/2015 RICKEY ROTH PRODUCTION ADMINISTRATIVE ASSISTANT Ot 785.1 05/17/2015 ZELALEM SUMMERS DO Ot [...] MD, Ot I25.10 ATHSCL HEART DISEASE OF [place] CORONARY 05/25/2015 JAMAR CLARK MD, Ot J11.08 [...] MD, Ot M06.9 RHEUMATOID ARTHRITIS, UNSPECIFIED 05/25/2015 JAMAR CLARK MD Ot M79.7 FIBROMYALGIA 05/25/2015 JAMAR [...] MD Ot I25.10 ATHSCL HEART DISEASE OF [place] CORONARY 05/29/2015 JAMAR CLARK MD Ot J11.08 [...] CLARK MD Ot Z95.5 06/30/2015 COREY JUAREZ PRODUCTION ADMINISTRATIVE ASSISTANT Ot Z12.31 06/30/2015 GAGE MARSHALL FACC, ALI [...] FACP CCDS Ot 272.4 06/30/2015 GAGE MARSHALL [facility], ALI FACP CCDS Ot 414.00 06/30/2015 BRYSON SCHERER APRN Ot V76.12 06/30/2015 FIFI NELSON MD Ot 723.0 06/30/2015 RICKEY ROTH PRODUCTION ADMINISTRATIVE ASSISTANT Ot 272.4 06/30/2015 GAGE MARSHALL FACC, ALI [...] FACP CCDS Ot 729.5 06/30/2015 RICKEY ROTH PRODUCTION ADMINISTRATIVE ASSISTANT Ot 414.00 06/30/2015 BUFFYRICKEY DOWNS PRODUCTION ADMINISTRATIVE ASSISTANT Ot 785.1 06/30/2015 ZELALEM SUMMERS DO Ot 278.00 06/30/2015 ZELALEM SUMMERS DO Ot 327.23 06/30/2015 ZELALEM SUMMERS DO Ot 493.90 06/30/2015 GAGE MARSHALL [facility], ALI FACP CCDS Ot 250.60 06/30/2015 GAGE MARSHALL [facility], ALI FACP CCDS Ot 272.4 06/30/2015 GAGE MARSHALL [facility], ALI FACP CCDS Ot 278.00 06/30/2015 GAGE MARSHALL [facility], ALI FACP CCDS Ot 327.23 06/30/2015 GAGE MARSHALL [facility], ALI FACP CCDS Ot 357.2 06/30/2015 GAGE MARSHALL [facility], ALI FACP CCDS Ot 414.00 06/30/2015 GAGE MARSHALL [facility], ALI FACP CCDS Ot 433.10 06/30/2015 GAGE MARSHALL [facility], ALI FACP CCDS Ot 496 06/30/2015 COREY JUAREZ PRODUCTION ADMINISTRATIVE ASSISTANT Ot Z12.31 06/30/2015 GAGE MARSHALL [facility], ALI FACP CCDS Ot E11.9 06/30/2015 GAGE MARSHALL [facility], ALI FACP CCDS Ot E78.5 06/30/2015 PEEWEE [...] ALTAMIRANO DO Ot Z99.81 07/06/2015 COREY JUAREZ PRODUCTION ADMINISTRATIVE ASSISTANT Ot Z12.31 07/06/2015 GAGE MARSHALL [facility], ALI [facility] CCDS Ot E11.9 07/06/2015 GAGE MARSHALL FAC, ALI [facility] CCDS Ot E78.5 07/06/2015 PEEWEE MARSHALL, LEONELA [...] MD Ot I25.10 ATHSCL HEART DISEASE OF [place] CORONARY 07/07/2015 CRYSTAL SANTIAGO MD Ot J39.8 [...] MD Ot I25.10 ATHSCL HEART DISEASE OF [place] CORONARY 07/07/2015 CRYSTAL SANTIAGO MD Ot J39.8 [...] MD Ot I25.10 ATHSCL HEART DISEASE OF [place] CORONARY 07/08/2015 CRSYTAL SANTIAGO MD Ot J39.8 OTHER SPECIFIED DISEASES [...] MD Ot I25.10 ATHSCL HEART DISEASE OF [place] CORONARY 07/09/2015 CRYSTAL SANTIAGO MD Ot J39.8 [...] 10/09/2015 TRACY MARSHALL, WAGNER Castorena Ot V72.81 [id number] CARDIOVASCULAR 10/09/2015 TRACY MARSHALL, WAGNER Castorena Ot [...] 723.0 CERVICAL SPINAL STENOSIS 10/09/2015 RICKEY ROTH PRODUCTION ADMINISTRATIVE ASSISTANT Ot 272.4 HYPERLIPIDEMIA NEC/NOS 10/09/2015 GAGE MARSHALL [...] 729.5 PAIN IN LIMB 10/09/2015 BUFFYRICKEY DOWNS PRODUCTION ADMINISTRATIVE ASSISTANT Ot 414.00 CORON ATHEROSCLER NOS TYPE VESSEL, NATIV 10/09/2015 BUFFYRICKEY DOWNS PRODUCTION ADMINISTRATIVE ASSISTANT Ot 785.1 PALPITATIONS 10/09/2015 ZELALEM SUMMERS DO [...] AIRWAY OBSTRUCT NEC 10/09/2015 LARRY COREY L PRODUCTION ADMINISTRATIVE ASSISTANT Ot Z12.31 ENCNTR SCREEN MAMMOGRAM FOR MALIGNANT [...] J45.909 UNSPECIFIED ASTHMA, UNCOMPLICATED 10/09/2015 RICKEY ROTH PRODUCTION ADMINISTRATIVE ASSISTANT Ot E78.5 HYPERLIPIDEMIA, UNSPECIFIED 10/09/2015 BUFFYMARICKEY PRODUCTION ADMINISTRATIVE ASSISTANT Ot E78.5 HYPERLIPIDEMIA, UNSPECIFIED 10/10/2015 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 L PRODUCTION ADMINISTRATIVE ASSISTANT Ot E78.5 HYPERLIPIDEMIA, UNSPECIFIED 10/11/2015 DELIA BROWER [...] HISTORY OF COLONIC POLYPS 11/03/2015 RICKEY ROTH PRODUCTION ADMINISTRATIVE ASSISTANT Ot E78.5 HYPERLIPIDEMIA, UNSPECIFIED 11/09/2015 RICKEY ROTH PRODUCTION ADMINISTRATIVE ASSISTANT Ot E78.5 HYPERLIPIDEMIA, UNSPECIFIED 01/26/2016 WAGNER MOLINA MD Ot 723.0 CERVICAL SPINAL STENOSIS 01/26/2016 WAGNER MOLINA MD Ot V72.63 PRE-PROCEDURAL LABORATORY EXAMINATION 01/26/2016 WAGNER MOLINA MD Ot V72.81 [id number] CARDIOVASCULAR 01/26/2016 WAGNER MOLINA MD Ot V74.8 [...] 723.0 CERVICAL SPINAL STENOSIS 01/26/2016 RICKEY ROTH PRODUCTION ADMINISTRATIVE ASSISTANT Ot 272.4 HYPERLIPIDEMIA NEC/NOS 01/26/2016 GAGE MARSHALL [...] 729.5 PAIN IN LIMB 01/26/2016 RICKEY ROTH PRODUCTION ADMINISTRATIVE ASSISTANT Ot 414.00 CORON ATHEROSCLER NOS TYPE VESSEL, NATIV 01/26/2016 RICKEY ROTH PRODUCTION ADMINISTRATIVE ASSISTANT Ot 785.1 PALPITATIONS 01/26/2016 ZELALEM SUMMERS DO [...] CHR AIRWAY OBSTRUCT NEC 01/26/2016 COREY JUAREZ PRODUCTION ADMINISTRATIVE ASSISTANT Ot Z12.31 ENCNTR SCREEN MAMMOGRAM FOR MALIGNANT [...] J45.909 UNSPECIFIED ASTHMA, UNCOMPLICATED 01/26/2016 RICKEY ROTH PRODUCTION ADMINISTRATIVE ASSISTANT Ot E78.5 HYPERLIPIDEMIA, UNSPECIFIED 02/06/2016 GAGE MARSHALL FACC, SHRUTHI FACP CCDS Ot E11.9 TYPE 2 DIABETES MELLITUS WITHOUT COMPLIC 02/06/2016 GAGE MARSHALL FACC, SHRUTHI FACP CCDS Ot E66.9 OBESITY, UNSPECIFIED 02/06/2016 GAGE MARSHALL FACC, SHRUTHI FACP CCDS Ot E78.1 PURE HYPERGLYCERIDEMIA 02/06/2016 SHRUTHI MANUEL MD, FACC FACP CCDS Ot I25.10 ATHSCL HEART DISEASE OF [place] CORONARY 02/06/2016 SHRUTHI MANUEL MD, FACC FACP CCDS Ot J44.9 CHRONIC OBSTRUCTIVE PULMONARY DISEASE, U 02/06/2016 SHRUTHI MANUEL MD, FACC FACP CCDS Ot R06.02 SHORTNESS OF BREATH 02/06/2016 GAGE MARSHALL FACC, SHRUTHI FACP CCDS Ot Z68.36 BODY MASS INDEX (BMI) 36.0-36.9 , ADULT 02/06/2016 SHRUTHI MANUEL MD, FACC FACP CCDS Ot Z79.899 OTHER WOODEN BARREL MECHANIC (CURRENT) DRUG THERAPY 02/06/2016 GAGE MARSHALL FACC, SHRUTHI FORDE CCDS Ot Z87.891 PERSONAL HISTORY OF NICOTINE DEPENDENCE 02/06/2016 GAGE MARSHALL FACC, SHRUTHI FORDE CCDS Ot Z95.5 PRESENCE OF CORONARY ANGIOPLASTY IMPLANT 02/08/2016 BAIMA, RICKEY L PRODUCTION ADMINISTRATIVE ASSISTANT Ot R06.09 OTHER FORMS OF DYSPNEA 02/08/2016 BAIMA, RICKEY L PRODUCTION ADMINISTRATIVE ASSISTANT Ot R06.09 OTHER FORMS OF DYSPNEA 02/09/2016 BAIMA, RICKEY L PRODUCTION ADMINISTRATIVE ASSISTANT Ot I25.10 ATHSCL HEART DISEASE OF [place] CORONARY 02/09/2016 BAIMA, RICKEY L PRODUCTION ADMINISTRATIVE ASSISTANT Ot I65.23 OCCLUSION AND STENOSIS OF BILATERAL DYE 02/09/2016 BAIMA, RICKEY L PRODUCTION ADMINISTRATIVE ASSISTANT Ot J44.9 CHRONIC OBSTRUCTIVE PULMONARY DISEASE, U 02/09/2016 BAIMA, RICKEY L PRODUCTION ADMINISTRATIVE ASSISTANT Ot R00.0 TACHYCARDIA, UNSPECIFIED 02/09/2016 BAIMA, RICKEY L PRODUCTION ADMINISTRATIVE ASSISTANT Ot R06.09 OTHER FORMS OF DYSPNEA 02/09/2016 BAIMA, RICKEY L PRODUCTION ADMINISTRATIVE ASSISTANT Ot I25.10 ATHSCL HEART DISEASE OF [place] CORONARY 02/09/2016 BAIMA, RICKEY L PRODUCTION ADMINISTRATIVE ASSISTANT Ot I65.23 OCCLUSION AND STENOSIS OF BILATERAL DYE 02/09/2016 BAIMA, RICKEY L PRODUCTION ADMINISTRATIVE ASSISTANT Ot J44.9 CHRONIC OBSTRUCTIVE PULMONARY DISEASE, U 02/09/2016 BAIMA, RICKEY L PRODUCTION ADMINISTRATIVE ASSISTANT Ot R00.0 TACHYCARDIA, UNSPECIFIED 02/09/2016 BAIMA, RICKEY L PRODUCTION ADMINISTRATIVE ASSISTANT Ot R06.09 OTHER FORMS OF DYSPNEA 02/20/2016 BAIMA, RICKEY L PRODUCTION ADMINISTRATIVE ASSISTANT Ot E78.5 HYPERLIPIDEMIA, UNSPECIFIED 02/20/2016 BAIMA, RICKEY L PRODUCTION ADMINISTRATIVE ASSISTANT Ot I25.10 ATHSCL HEART DISEASE OF [place] CORONARY 02/26/2016 BAIMA, RICKEY L PRODUCTION ADMINISTRATIVE ASSISTANT Ot E78.5 HYPERLIPIDEMIA, UNSPECIFIED 02/26/2016 BAIMA, RICKEY L PRODUCTION ADMINISTRATIVE ASSISTANT Ot I25.10 ATHSCL HEART DISEASE OF [place] CORONARY 02/27/2016 MADDaxa COREY L PRODUCTION ADMINISTRATIVE ASSISTANT Ot Z12.31 ENCNTR SCREEN MAMMOGRAM FOR MALIGNANT NE 02/28/2016 LARRY COREY L PRODUCTION ADMINISTRATIVE ASSISTANT Ot Z12.31 ENCNTR SCREEN MAMMOGRAM FOR MALIGNANT NE 02/28/2016 COREY JUAREZ PRODUCTION ADMINISTRATIVE ASSISTANT Ot Z12.31 ENCNTR SCREEN MAMMOGRAM FOR MALIGNANT NE 02/29/2016 BAIMA, RICKEY L PRODUCTION ADMINISTRATIVE ASSISTANT Ot E78.4 OTHER HYPERLIPIDEMIA 02/29/2016 BAIMA, RICKEY L PRODUCTION ADMINISTRATIVE ASSISTANT Ot G47.33 OBSTRUCTIVE SLEEP APNEA (ADULT) ( PEDIATR 02/29/2016 BAIMA, RICKEY L PRODUCTION ADMINISTRATIVE ASSISTANT Ot I25.10 ATHSCL HEART DISEASE OF [place] CORONARY 02/29/2016 BAIMA, RICKEY L PRODUCTION ADMINISTRATIVE ASSISTANT Ot I65.23 OCCLUSION AND STENOSIS OF BILATERAL DYE 02/29/2016 BAIMA, RICKEY L PRODUCTION ADMINISTRATIVE ASSISTANT Ot R00.2 PALPITATIONS 02/29/2016 BAIMA, RICKEY L PRODUCTION ADMINISTRATIVE ASSISTANT Ot E78.4 OTHER HYPERLIPIDEMIA 02/29/2016 BAIMA, RICKEY L PRODUCTION ADMINISTRATIVE ASSISTANT Ot G47.33 OBSTRUCTIVE SLEEP APNEA (ADULT) ( PEDIATR 02/29/2016 BAIMA, RICKEY L PRODUCTION ADMINISTRATIVE ASSISTANT Ot I25.10 ATHSCL HEART DISEASE OF [place] CORONARY 02/29/2016 BAIMA, RICKEY L PRODUCTION ADMINISTRATIVE ASSISTANT Ot I65.23 OCCLUSION AND STENOSIS OF BILATERAL DYE 02/29/2016 BAIMA, RICKEY L PRODUCTION ADMINISTRATIVE ASSISTANT Ot R00.2 PALPITATIONS 02/29/2016 BAIMA, RICKEY L PRODUCTION ADMINISTRATIVE ASSISTANT Ot E78.4 OTHER HYPERLIPIDEMIA 02/29/2016 BAIMA, RICKEY L PRODUCTION ADMINISTRATIVE ASSISTANT Ot G47.33 OBSTRUCTIVE SLEEP APNEA (ADULT) ( PEDIATR 02/29/2016 BAIMA, RICKEY L PRODUCTION ADMINISTRATIVE ASSISTANT Ot I25.10 ATHSCL HEART DISEASE OF [place] CORONARY 02/29/2016 BAIMA, RICKEY L PRODUCTION ADMINISTRATIVE ASSISTANT Ot I65.23 OCCLUSION AND STENOSIS OF BILATERAL DYE 02/29/2016 BAIMA, RICKEY L PRODUCTION ADMINISTRATIVE ASSISTANT Ot R00.2 PALPITATIONS 03/06/2016 BAIMA, RICKEY L PRODUCTION ADMINISTRATIVE ASSISTANT Ot I25.10 ATHSCL HEART DISEASE OF [place] CORONARY 03/06/2016 BAIMA, RICEKY L PRODUCTION ADMINISTRATIVE ASSISTANT Ot I65.23 OCCLUSION AND STENOSIS OF BILATERAL DYE 03/06/2016 BAIMA, RICKEY L PRODUCTION ADMINISTRATIVE ASSISTANT Ot J44.9 CHRONIC OBSTRUCTIVE PULMONARY DISEASE, U 03/06/2016 BAIMA, RICKEY L PRODUCTION ADMINISTRATIVE ASSISTANT Ot R00.0 TACHYCARDIA, UNSPECIFIED 03/06/2016 BAIMA, RICKEY L PRODUCTION ADMINISTRATIVE ASSISTANT Ot R06.09 OTHER FORMS OF DYSPNEA 03/07/2016 GAGE MARSHALL FACC, ALI FACP CCDS Ot E11.9 TYPE 2 DIABETES MELLITUS WITHOUT COMPLIC 03/07/2016 GGAE MARSHALL FACC, ALI FACP CCDS Ot E66.9 OBESITY, UNSPECIFIED 03/07/2016 GAGE MARSHALL FACC, ALI FACP CCDS Ot E78.1 PURE HYPERGLYCERIDEMIA 03/07/2016 GAGE MARSHALL FACC, ALI FACP CCDS Ot I25.10 ATHSCL HEART DISEASE OF [place] CORONARY 03/07/2016 GAGE MARSHALL FACC, ALI FACP CCDS Ot J44.9 CHRONIC OBSTRUCTIVE PULMONARY DISEASE, U 03/07/2016 GAGE MRASHALL FACC, ALI FACP CCDS Ot R06.02 SHORTNESS OF BREATH 03/07/2016 GAGE MARSHALL FACC, ALI FACP CCDS Ot Z68.36 BODY MASS INDEX (BMI) 36.0-36.9 , ADULT 03/07/2016 GAGE MARSHALL FACC, ALI FACP CCDS Ot Z79.899 OTHER RESIDENTIAL (CURRENT) DRUG THERAPY 03/07/2016 GAGE MARSHALL FACC, ALI FACP CCDS Ot Z87.891 PERSONAL HISTORY OF NICOTINE DEPENDENCE 03/07/2016 GAGE MARSHALL FACC, ALI FACP CCDS Ot Z95.5 PRESENCE OF CORONARY ANGIOPLASTY IMPLANT 03/13/2016 RICKEY ROTH PRODUCTION ADMINISTRATIVE ASSISTANT Ot I25.10 ATHSCL HEART DISEASE OF [place] CORONARY 03/13/2016 RICKEY ROTH PRODUCTION ADMINISTRATIVE ASSISTANT Ot I65.23 OCCLUSION AND STENOSIS OF BILATERAL DYE 03/13/2016 RICKEY ROTH PRODUCTION ADMINISTRATIVE ASSISTANT Ot J44.9 CHRONIC OBSTRUCTIVE PULMONARY DISEASE, U 03/13/2016 RICKEY ROTH PRODUCTION ADMINISTRATIVE ASSISTANT Ot R00.0 TACHYCARDIA, UNSPECIFIED 03/13/2016 RICKEY ROTH L PRODUCTION ADMINISTRATIVE ASSISTANT Ot R06.09 OTHER FORMS OF DYSPNEA 03/22/2016 MADCOREY Mittal PRODUCTION ADMINISTRATIVE ASSISTANT Ot Z12.31 ENCNTR SCREEN MAMMOGRAM FOR MALIGNANT NE 03/28/2016 MILYLCOREY L PRODUCTION ADMINISTRATIVE ASSISTANT Ot Z12.31 ENCNTR SCREEN MAMMOGRAM FOR MALIGNANT NE 05/14/2016 RICKEY ROTH L PRODUCTION ADMINISTRATIVE ASSISTANT Ot E78.4 OTHER HYPERLIPIDEMIA 05/14/2016 RICKEY ROTH L PRODUCTION ADMINISTRATIVE ASSISTANT Ot G47.33 OBSTRUCTIVE SLEEP APNEA (ADULT) ( PEDIATR 05/14/2016 BAIMA, RICKEY L PRODUCTION ADMINISTRATIVE ASSISTANT Ot I25.10 ATHSCL HEART DISEASE OF [place] CORONARY 05/14/2016 BAIMA, RICKEY L PRODUCTION ADMINISTRATIVE ASSISTANT Ot I65.23 OCCLUSION AND STENOSIS OF BILATERAL DYE 05/14/2016 BAIMA, RICKEY L PRODUCTION ADMINISTRATIVE ASSISTANT Ot R00.2 PALPITATIONS 05/16/2016 BAIMA, RICKEY L PRODUCTION ADMINISTRATIVE ASSISTANT Ot E78.4 OTHER HYPERLIPIDEMIA 05/16/2016 BAIMA, RICKEY L PRODUCTION ADMINISTRATIVE ASSISTANT Ot G47.33 OBSTRUCTIVE SLEEP APNEA (ADULT) ( PEDIATR 05/16/2016 BAIMA, RICKEY L PRODUCTION ADMINISTRATIVE ASSISTANT Ot I25.10 ATHSCL HEART DISEASE OF [place] CORONARY 05/16/2016 BAIMA, RICKEY L PRODUCTION ADMINISTRATIVE ASSISTANT Ot I65.23 OCCLUSION AND STENOSIS OF BILATERAL DYE 05/16/2016 BAIMA, RICKEY L PRODUCTION ADMINISTRATIVE ASSISTANT Ot R00.2 PALPITATIONS 05/27/2016 BAIMA, RICKEY L PRODUCTION ADMINISTRATIVE ASSISTANT Ot E78.4 OTHER HYPERLIPIDEMIA 05/27/2016 BAIMA, RICKEY L PRODUCTION ADMINISTRATIVE ASSISTANT Ot G47.33 OBSTRUCTIVE SLEEP APNEA (ADULT) ( PEDIATR 05/27/2016 BAIMA, RICKEY L PRODUCTION ADMINISTRATIVE ASSISTANT Ot I25.10 ATHSCL HEART DISEASE OF [place] CORONARY 05/27/2016 BAIMA, RICKEY L PRODUCTION ADMINISTRATIVE ASSISTANT Ot I65.23 OCCLUSION AND STENOSIS OF BILATERAL DYE 05/27/2016 BAIMA, RICKEY L PRODUCTION ADMINISTRATIVE ASSISTANT Ot R00.2 PALPITATIONS 06/26/2016 BAIMA, RICKEY L PRODUCTION ADMINISTRATIVE ASSISTANT Ot E11.9 TYPE 2 DIABETES MELLITUS WITHOUT COMPLIC 06/26/2016 BAIMA, RICKEY L PRODUCTION ADMINISTRATIVE ASSISTANT Ot E66.09 OTHER OBESITY DUE TO EXCESS CALORIES 06/26/2016 BAIMA, RICKEY L PRODUCTION ADMINISTRATIVE ASSISTANT Ot E78.4 OTHER HYPERLIPIDEMIA 06/26/2016 BAIMA, RICKEY L PRODUCTION ADMINISTRATIVE ASSISTANT Ot G47.33 OBSTRUCTIVE SLEEP APNEA (ADULT) ( PEDIATR 06/26/2016 BAIMA, RICKEY L PRODUCTION ADMINISTRATIVE ASSISTANT Ot I25.10 ATHSCL HEART DISEASE OF [place] CORONARY 06/26/2016 BAIMA, RICKEY L PRODUCTION ADMINISTRATIVE ASSISTANT Ot I65.23 OCCLUSION AND STENOSIS OF BILATERAL DYE 06/26/2016 BAIMA, RICKEY L PRODUCTION ADMINISTRATIVE ASSISTANT Ot J43.8 OTHER EMPHYSEMA 06/26/2016 BAIMA, RICKEY L PRODUCTION ADMINISTRATIVE ASSISTANT Ot R26.89 OTHER ABNORMALITIES OF GAIT AND MOBILITY 06/26/2016 BAIMA, RICKEY L PRODUCTION ADMINISTRATIVE ASSISTANT Ot E11.9 TYPE 2 DIABETES MELLITUS WITHOUT COMPLIC 06/26/2016 GONZALEZ RICKEYHER Daxa WATSON Ot E66.09 OTHER OBESITY DUE TO EXCESS CALORIES 06/26/2016 RICKEY ROTHP Ot E78.4 OTHER HYPERLIPIDEMIA 06/26/2016 GONZALEZ RICKEYHER Daxa AUGUSTEP Ot G47.33 OBSTRUCTIVE SLEEP APNEA (ADULT) ( PEDIATR 06/26/2016 GONZALEZ RICKEYHER Daxa WATSON Ot I25.10 ATHSCL HEART DISEASE OF [place] CORONARY 06/26/2016 RICKEY ROTH Ot I65.23 OCCLUSION AND STENOSIS OF BILATERAL DYE 06/26/2016 RICKEY ROTH Ot J43.8 OTHER EMPHYSEMA 06/26/2016 RICKEY ROTH Ot R26.89 OTHER ABNORMALITIES OF GAIT [...] DO, Ot I25.10 ATHSCL HEART DISEASE OF [place] CORONARY 07/23/2016 TRISTAN CAMARILLO DO, Ot J44.9 CHRONIC OBSTRUCTIVE PULMONARY DISEASE, U 07/23/2016 TRISTAN CAMARILLO DO, Ot R10.13 EPIGASTRIC PAIN 07/23/2016 TRISTAN CAMARILLO DO, Ot R11.10 VOMITING, UNSPECIFIED 07/23/2016 TRISTAN CAMARILLO DO, Ot Z79.82 RESIDENTIAL (CURRENT) USE OF ASPIRIN 07/23/2016 TRISTAN CAMARILLO DO, Ot Z79.84 RESIDENTIAL (CURRENT) USE OF ORAL HYPOGLYC 07/23/2016 TRISTAN CAMARILLO DO, Ot Z79.899 OTHER RESIDENTIAL (CURRENT) DRUG THERAPY 07/23/2016 TRISTAN CAMARILLO DO Ot Z95.5 PRESENCE OF CORONARY ANGIOPLASTY IMPLANT 07/23/2016 COREY JUAREZ Ot Z12.31 ENCNTR SCREEN MAMMOGRAM FOR MALIGNANT NE 07/23/2016 GAGE MARSHALL [facility], SHRUTHI FORDE CCDS Ot E11.9 TYPE 2 DIABETES MELLITUS WITHOUT COMPLIC 07/23/2016 GAGE MARSHALL [facility], SHRUTHI FORDE CCDS Ot E78.5 HYPERLIPIDEMIA, UNSPECIFIED [...] UNSPECIFIED ASTHMA, UNCOMPLICATED 07/23/2016 BUFFYMA RICKEY L PRODUCTION ADMINISTRATIVE ASSISTANT Ot E78.5 HYPERLIPIDEMIA, UNSPECIFIED 07/23/2016 BAIMA, RICKEY L PRODUCTION ADMINISTRATIVE ASSISTANT Ot E78.5 HYPERLIPIDEMIA, UNSPECIFIED 07/23/2016 BAIMA, RICKEY L PRODUCTION ADMINISTRATIVE ASSISTANT Ot I25.10 ATHSCL HEART DISEASE OF [place] CORONARY 07/23/2016 BAIMA, RICKEY L PRODUCTION ADMINISTRATIVE ASSISTANT Ot I25.10 ATHSCL HEART DISEASE OF [place] CORONARY 07/23/2016 BAIMA RICKEY L PRODUCTION ADMINISTRATIVE ASSISTANT Ot I65.23 OCCLUSION AND STENOSIS OF BILATERAL DYE 07/23/2016 BUFFYMA RICKEY L PRODUCTION ADMINISTRATIVE ASSISTANT Ot J44.9 CHRONIC OBSTRUCTIVE PULMONARY DISEASE, U 07/23/2016 BAIMA, RICKEY L PRODUCTION ADMINISTRATIVE ASSISTANT Ot R00.0 TACHYCARDIA, UNSPECIFIED 07/23/2016 BAIMA, RICKEY L PRODUCTION ADMINISTRATIVE ASSISTANT Ot R06.09 OTHER FORMS OF DYSPNEA 07/23/2016 COREY JUAREZ PRODUCTION ADMINISTRATIVE ASSISTANT Ot Z12.31 ENCNTR SCREEN MAMMOGRAM FOR MALIGNANT NE 07/23/2016 BUFFYMA RICKEY L PRODUCTION ADMINISTRATIVE ASSISTANT Ot E78.4 OTHER HYPERLIPIDEMIA 07/23/2016 BUFFYMA RICKEY L PRODUCTION ADMINISTRATIVE ASSISTANT Ot G47.33 OBSTRUCTIVE SLEEP APNEA (ADULT) ( PEDIATR 07/23/2016 RICKEY ROTH L PRODUCTION ADMINISTRATIVE ASSISTANT Ot I25.10 ATHSCL HEART DISEASE OF [place] CORONARY 07/23/2016 RICKEY ROTH L PRODUCTION ADMINISTRATIVE ASSISTANT Ot I65.23 OCCLUSION AND STENOSIS OF BILATERAL DYE 07/23/2016 GONZALEZ RICKEY L PRODUCTION ADMINISTRATIVE ASSISTANT Ot R00.2 PALPITATIONS 07/23/2016 GONZALEZ RICKEY L PRODUCTION ADMINISTRATIVE ASSISTANT Ot E11.9 TYPE 2 DIABETES MELLITUS WITHOUT COMPLIC 07/23/2016 GONZALEZ RICKEY L PRODUCTION ADMINISTRATIVE ASSISTANT Ot E66.09 OTHER OBESITY DUE TO EXCESS CALORIES 07/23/2016 GONZALEZ RICKEY L PRODUCTION ADMINISTRATIVE ASSISTANT Ot E78.4 OTHER HYPERLIPIDEMIA 07/23/2016 BAIYARELI RICKEY L PRODUCTION ADMINISTRATIVE ASSISTANT Ot G47.33 OBSTRUCTIVE SLEEP APNEA (ADULT) ( PEDIATR 07/23/2016 BAIRICKEY DOWNS L PRODUCTION ADMINISTRATIVE ASSISTANT Ot I25.10 ATHSCL HEART DISEASE OF [place] CORONARY 07/23/2016 GONZALEZ RICKEY L PRODUCTION ADMINISTRATIVE ASSISTANT Ot I65.23 OCCLUSION AND STENOSIS OF BILATERAL DYE 07/23/2016 BUFFYYARELI RICKEY L PRODUCTION ADMINISTRATIVE ASSISTANT Ot J43.8 OTHER EMPHYSEMA 07/23/2016 GONZALEZ RICKEY L PRODUCTION ADMINISTRATIVE ASSISTANT Ot R26.89 OTHER ABNORMALITIES OF GAIT AND MOBILITY 07/24/2016 LEONELA ALEMAN MD Ot E11.9 TYPE 2 DIABETES MELLITUS WITHOUT COMPLIC 07/24/2016 LEONELA ALEMAN MD Ot F32.9 MAJOR DEPRESSIVE DISORDER, SINGLE EPISOD 07/24/2016 LEONELA ALEMAN MD Ot I10 ESSENTIAL (PRIMARY) HYPERTENSION 07/24/2016 LEONELA ALEMAN MD Ot I25.10 ATHSCL HEART DISEASE OF [place] CORONARY 07/24/2016 LEONELA ALEMAN MD Ot J44.9 CHRONIC OBSTRUCTIVE PULMONARY DISEASE, U 07/24/2016 LEONELA ALEMAN MD Ot M06.9 RHEUMATOID ARTHRITIS, UNSPECIFIED 07/24/2016 LEONELA ALEMAN MD, Ot M65.4 RADIAL STYLOID TENOSYNOVITIS [DE QUERVAI 07/24/2016 LEONELA ALEMAN MD Ot M79.1 MYALGIA 07/24/2016 LEONELA ALEMAN MD, Ot Z79.899 OTHER RESIDENTIAL (CURRENT) DRUG THERAPY 07/24/2016 LEONELA ALEMAN MD [...] MD, Ot I25.10 ATHSCL HEART DISEASE OF [place] CORONARY 07/25/2016 LEONELA ALEMAN MD, Ot J44.9 CHRONIC OBSTRUCTIVE PULMONARY DISEASE, U 07/25/2016 LEONELA ALEMAN MD, Ot M06.9 RHEUMATOID ARTHRITIS, UNSPECIFIED 07/25/2016 LEONELA ALEMAN MD, Ot M65.4 RADIAL STYLOID TENOSYNOVITIS [DE QUERVAI 07/25/2016 LEONELA ALEMAN MD Ot M79.1 MYALGIA 07/25/2016 LEONELA ALEMAN MD, Ot Z79.899 OTHER WOODEN BARREL MECHANIC (CURRENT) DRUG THERAPY 07/25/2016 LEONELA ALEMAN MD, Ot Z87.891 PERSONAL HISTORY OF NICOTINE DEPENDENCE 07/25/2016 LEONELA ALEMAN MD, Ot Z95.5 PRESENCE OF CORONARY ANGIOPLASTY IMPLANT 07/28/2016 TRISTAN CAMARILLO DO, Ot E11.9 TYPE 2 DIABETES MELLITUS WITHOUT COMPLIC 07/28/2016 TRISTAN CAMARILLO DO, Ot I10 ESSENTIAL (PRIMARY) HYPERTENSION 07/28/2016 TRISTAN CAMARILLO DO, Ot I25.10 ATHSCL HEART DISEASE OF [place] CORONARY 07/28/2016 TRISTAN CAMARILLO DO, Ot J44.9 CHRONIC OBSTRUCTIVE PULMONARY DISEASE, U 07/28/2016 TRISTAN CAMARILLO DO, Ot R10.13 EPIGASTRIC PAIN 07/28/2016 TRISTAN CAMARILLO DO, Ot R11.10 VOMITING, UNSPECIFIED 07/28/2016 TRISTAN CAMARILLO DO, Ot Z79.82 RESIDENTIAL (CURRENT) USE OF ASPIRIN 07/28/2016 TRISTAN CAMARILLO DO, Ot Z79.84 WOODEN BARREL MECHANIC (CURRENT) USE OF ORAL HYPOGLYC 07/28/2016 TRISTAN CAMARILLO DO, Ot Z79.899 OTHER RESIDENTIAL (CURRENT) DRUG THERAPY 07/28/2016 TRISTAN CAMARILLO DO, Ot Z95.5 PRESENCE OF CORONARY ANGIOPLASTY IMPLANT 07/30/2016 LEONELA ALEMAN MD Ot E11.9 TYPE 2 DIABETES MELLITUS WITHOUT COMPLIC 07/30/2016 LEONELA ALEMAN MD Ot F32.9 MAJOR DEPRESSIVE DISORDER, SINGLE EPISOD 07/30/2016 LEONELA ALEMAN MD Ot I10 ESSENTIAL (PRIMARY) HYPERTENSION 07/30/2016 LEONELA ALEMAN MD Ot I25.10 ATHSCL HEART DISEASE OF [place] CORONARY 07/30/2016 LEONELA ALEMAN MD Ot J44.9 CHRONIC OBSTRUCTIVE PULMONARY DISEASE, U 07/30/2016 LEONELA ALEMAN MD Ot M06.9 RHEUMATOID ARTHRITIS, UNSPECIFIED 07/30/2016 LEONELA ALEMAN MD Ot M65.4 RADIAL STYLOID TENOSYNOVITIS [DE QUERVAI 07/30/2016 LEONELA ALEMAN MD Ot M79.1 MYALGIA 07/30/2016 LEONELA ALEMAN MD Ot Z79.899 OTHER RESIDENTIAL (CURRENT) DRUG THERAPY 07/30/2016 LEONELA ALEMAN MD [...] MD Ot I25.10 ATHSCL HEART DISEASE OF [place] CORONARY 07/31/2016 LEONELA ALEMAN MD Ot J44.9 CHRONIC OBSTRUCTIVE PULMONARY DISEASE, U 07/31/2016 LEONELA ALEMAN MD Ot M06.9 RHEUMATOID ARTHRITIS, UNSPECIFIED 07/31/2016 LEONELA ALEMAN MD Ot M65.4 RADIAL STYLOID TENOSYNOVITIS [DE QUERVAI 07/31/2016 LEONELA ALEMAN MD Ot M79.1 MYALGIA 07/31/2016 LEONELA ALEMAN MD Ot Z79.899 OTHER WOODEN BARREL MECHANIC (CURRENT) DRUG THERAPY 07/31/2016 LEONELA ALEMAN MD Ot Z87.891 PERSONAL HISTORY OF NICOTINE DEPENDENCE 07/31/2016 LEONELA ALEMAN MD Ot Z95.5 PRESENCE OF CORONARY ANGIOPLASTY IMPLANT 08/08/2016 RICKEY ROTH L PRODUCTION ADMINISTRATIVE ASSISTANT Ot E66.09 OTHER OBESITY DUE TO EXCESS CALORIES 08/08/2016 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 L PRODUCTION ADMINISTRATIVE ASSISTANT Ot E78.4 OTHER HYPERLIPIDEMIA 08/08/2016 BAIMA, RICKEY L PRODUCTION ADMINISTRATIVE ASSISTANT Ot G47.33 OBSTRUCTIVE SLEEP APNEA (ADULT) ( PEDIATR 08/08/2016 BAIMA RICKEY L PRODUCTION ADMINISTRATIVE ASSISTANT Ot I25.10 ATHSCL HEART DISEASE OF [place] CORONARY 08/08/2016 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 L PRODUCTION ADMINISTRATIVE ASSISTANT Ot I65.23 OCCLUSION AND STENOSIS OF BILATERAL DYE 08/08/2016 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 L PRODUCTION ADMINISTRATIVE ASSISTANT Ot J43.8 OTHER EMPHYSEMA 08/08/2016 BROWERDELIA GERARD DO Ot K86.89 OTHER SPECIFIED DISEASES OF PANCREAS 08/09/2016 DELIA BROWER DO Ot K86.89 OTHER SPECIFIED DISEASES OF PANCREAS 08/14/2016 DELIA BROWER DO Ot K86.89 OTHER SPECIFIED DISEASES OF PANCREAS 08/30/2016 BAIROYAL DOWNSHER L PRODUCTION ADMINISTRATIVE ASSISTANT Ot E66.09 OTHER OBESITY DUE TO EXCESS CALORIES 08/30/2016 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 L PRODUCTION ADMINISTRATIVE ASSISTANT Ot E78.4 OTHER HYPERLIPIDEMIA 08/30/2016 BAIMA, RICKEY L PRODUCTION ADMINISTRATIVE ASSISTANT Ot G47.33 OBSTRUCTIVE SLEEP APNEA (ADULT) ( PEDIATR 08/30/2016 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 L PRODUCTION ADMINISTRATIVE ASSISTANT Ot I25.10 ATHSCL HEART DISEASE OF [place] CORONARY 08/30/2016 BAIRICKEY DOWNS L PRODUCTION ADMINISTRATIVE ASSISTANT Ot I65.23 OCCLUSION AND STENOSIS OF BILATERAL DYE 08/30/2016 BUFFYMARICKEY L PRODUCTION ADMINISTRATIVE ASSISTANT Ot J43.8 OTHER EMPHYSEMA 08/30/2016 TUYET SMITH MD Ot I10 ESSENTIAL (PRIMARY) HYPERTENSION 08/30/2016 TUYET SMITH MD Ot I25.10 ATHSCL HEART DISEASE OF [place] CORONARY 08/30/2016 TUYET SMITH MD Ot J44.9 CHRONIC OBSTRUCTIVE PULMONARY DISEASE, U 08/30/2016 TUYET SMITH MD Ot K59.03 DRUG INDUCED CONSTIPATION 08/30/2016 TUYET SMTIH MD Ot R10.13 EPIGASTRIC PAIN 08/30/2016 TUYET [...] MD Ot I25.10 ATHSCL HEART DISEASE OF [place] CORONARY 09/01/2016 TUYET SMITH MD Ot J44.9 [...] OF CORONARY ANGIOPLASTY IMPLANT 09/04/2016 RICKEY ROTH PRODUCTION ADMINISTRATIVE ASSISTANT Ot E66.09 OTHER OBESITY DUE TO EXCESS CALORIES 09/04/2016 RICKEY ROTH PRODUCTION ADMINISTRATIVE ASSISTANT Ot E78.4 OTHER HYPERLIPIDEMIA 09/04/2016 RICKEY ROTH PRODUCTION ADMINISTRATIVE ASSISTANT Ot G47.33 OBSTRUCTIVE SLEEP APNEA (ADULT) ( PEDIATR 09/04/2016 RICKEY ROTH PRODUCTION ADMINISTRATIVE ASSISTANT Ot I25.10 ATHSCL HEART DISEASE OF [place] CORONARY 09/04/2016 RICKEY ROTH PRODUCTION ADMINISTRATIVE ASSISTANT Ot I65.23 OCCLUSION AND STENOSIS OF BILATERAL DYE 09/04/2016 RICKEY ROTH PRODUCTION ADMINISTRATIVE ASSISTANT Ot J43.8 OTHER EMPHYSEMA Procedures Code Description [place] [address] UA W/ CULTURE IF INDICATED 08/14/2012 18457 CULTURE URINE 80.99 01/25/2013 81.02 01/25/2013 81.62 01/25/2013 84.51 01/25/2013 29.11 01/27/2013 33.24 02/03/2013 33.27 02/03/2013 60430 UA LONG DIP 05/[address] NECK, SOFT TISSUE NECK W/DYE 05/10/2013 30943 BMP 05/10/2013 23751 A1C (IN-HOUSE) 64469 OXIMETRY 2013 96.04 06/22/2013 96.71 06/22/2013 78641 OXIMETRY 2013 47526 ROUTINE VENIPUNCTURE 07/01/2013 43193 OXIMETRY 2013 0435543 GFR CALC (RESULT ONLY) 07/01/2013 92412 BMP 07/01/2013 76186 BNP 07/02/2013 OTOLARYNG LEONELA VIDES 07/08/2013 58478 OXIMETRY 2013 14463 THERAPUTIC INJ SQ/IM 07/08/2013 J1100 DEXAMETHASONE SODIUM PHOS, 1 MG 07/08/2013 2000F BLOOD PRESSURE CHECK 2013 35782 UA W/ CULTURE IF INDICATED 07/20/2013 Pulmonary Zelalem Summers 07/21/2013 2000F BLOOD PRESSURE CHECK 07/22/2013 93804 OXIMETRY 2013 Cardiolog Shruthi Manuel 08/10/2013 88424 ROUTINE VENIPUNCTURE 08/11/2013 03888 EKG, TRACING 08700 CMP 08/11/2013 80595 LIPID PANEL 08/11 44955 MAGNESIUM 2013 83521 CBC 08/11/2013 7333928 GFR CALC (RESULT ONLY) 08/11/2013 81354 TSH 08/11/2013 05169 A1C (IN-HOUSE) 79660 ROUTINE VENIPUNCTURE 09/29/2013 1723800 RAGWEED COMMON-"SHORT RAGWEED" 09/30/2013 7250740 [place] WHITE 09/30/2013 5108968 DUST MITE (DERM.FARINE D2) 09/30/2013 4069710 DOG DANDER 12/2013 8815008 CLADOSPORIUM MOLD 09/30/2013 4817648 CAT DANDER 12/2013 9254668 BERMUDA GRASS 09/30/2013 4742959 ALTERNARIA TENUIS 09/30/2013 81409 IGE 09/30/2013 J1100 DEXAMETHASONE SODIUM PHOS, 1 MG 10/08/2013 47457 THERAPUTIC INJ SQ/IM 10/08/2013 43185 LEFT HEART CATH 11/12/2013 70878 OXIMETRY 2013 J1100 DEXAMETHASONE SODIUM PHOS, 1 MG 11/12/2013 14580 OXIMETRY 2013 65181 THERAPUTIC INJ SQ/IM 11/12/2013 13956 UA W/ CULTURE IF INDICATED 12/23/2013 56087 ROUTINE VENIPUNCTURE 12/31/2013 95735 A1C (IN-HOUSE) 81742 CMP 12/31/2013 63319 LIPID PANEL 12/31 86743 TSH 12/31/2013 33865 CBC 12/31/2013 93186 MAMMOGRAM, SCREENING 01/05/2014 11785 OXIMETRY 2013 11990 OXIMETRY 2013 14605 ROUTINE VENIPUNCTURE 02/22/2014 47374 CMP 02/22/2014 56415 CPK 02/22/2014 75150 MAGNESIUM 2013 21989 URIC ACID 2013 21644 INFLUENZA A & B (IN-HOUSE) 03/11/2014 94975 STREP A (IN-HOUSE) 03/11/2014 14241 XRAY CHEST 2 VIEW 03/12/2014 83557 OXIMETRY 2013 63076 THERAPUTIC INJ SQ/IM 03/12/2014 J1100 DEXAMETHASONE SODIUM PHOS, 1 MG 03/12/2014 48153 ROUTINE VENIPUNCTURE 06/24/2014 27293 URIC ACID 2014 39011 CRP 06/24/2014 ANAANA GAURAV ANALYZER (SCREEN) 06/25/2014 95641 RA FACTOR 2014 34022 ROUTINE VENIPUNCTURE 06/30/2014 45214 CMP 06/30/2014 62257 LIPID PANEL 06/30 86765 OXIMETRY 2014 [id number] INSERTION OF ENDOTRACHEAL AIRWAY INTO TR 02/11/2015 [id number] RESPIRATORY VENTILATION, LESS THAN 24 CO 02/11/2015 [id number] BYPASS TRACHEA TO CUTANEOUS WITH TRACH D [...] measurement by glucometer (mass/volume) 163 mg/dL 70-110 [id number] - 08/07/16 11:14 Serum or plasma urea [...] Status Pt. Type Provider Facility Loc./Unit Complaint [id number] 07/12/2014 10:52:00 07/12/2014 23: 59:59 CLS Outpatient MILYL COREY CASTRO [id number] 06/30/2014 12:17:00 06/30/2014 23: 59:59 CLS Outpatient MILYCOREY Mittal APRN [id number] 06/24/2014 13:01:00 06/24/2014 23: 59:59 CLS Outpatient COREY JUAREZ APRN [id number] 05/30/2014 10:42:00 05/30/2014 23: 59:59 CLS Outpatient ALVERTO MAGUIRE DO [id number] 05/02/2014 10:50:00 05/02/2014 23: 59:59 CLS Outpatient MADL GAMBRELERCOREY L [id number] 03/25/2014 13:34:00 03/25/2014 23: 59:59 CLS Outpatient MADL GAMBRELERCOREY L [id number] 03/12/2014 09:45:00 03/12/2014 23: 59:59 CLS Outpatient SABIHA GAMBRELERALVERTOA S [id number] 03/12/2014 09:45:00 03/12/2014 23: 59:59 CLS Outpatient SABIHA GAMBRELERANGIE S [id number] 02/22/2014 13:52:00 02/22/2014 23: 59:59 CLS Outpatient MADL GAMBRELERLEONORAA L [id number] 01/25/2014 13:37:00 01/25/2014 23: 59:59 CLS Outpatient MADL GAMBRELERLEONORAA L [id number] 01/18/2014 13:55:00 01/18/2014 23: 59:59 CLS Outpatient MADL GAMBRELERLEONORAA L [id number] 01/17/2014 13:48:00 01/17/2014 23: 59:59 CLS Outpatient EDUARDO TRENT APRN [id number] 01/05/2014 16:39:00 01/05/2014 23: 59:59 CLS Outpatient GILMERBRYSON Perez APRN [id number] 12/31/2013 08:27:00 12/31/2013 23: 59:59 CLS Outpatient MADL GAMBRELERCOREY L [id number] 12/23/2013 11:21:00 12/23/2013 23: 59:59 CLS Outpatient GILMERBRYSON Perez APRN A [id number] 11/12/2013 14:02:00 11/12/2013 23: 59:59 CLS Outpatient MADL GAMBRELERMEGANCOREY L [id number] 11/12/2013 14:02:00 11/12/2013 23: 59:59 CLS Outpatient ANDREZ DOALVERTO [id number] 10/12/2013 15:31:00 10/12/2013 23: 59:59 CLS Outpatient ALVERTO MAGUIRE DO [id number] 10/08/2013 09:59:00 10/08/2013 23: 59:59 CLS Outpatient ALVERTO MAGUIRE DO [id number] 10/08/2013 09:59:00 10/08/2013 23: 59:59 CLS Outpatient MADL GAMBRELER, COREY L [id number] 09/29/2013 15:38:00 09/29/2013 23: 59:59 CLS Outpatient MAGUIRE DO, ALVERTO Child [id number] 09/22/2013 09:37:00 09/22/2013 23: 59:59 CLS Outpatient MADL GAMBRELER, COREY L [id number] 09/22/2013 09:37:00 09/22/2013 23: 59:59 CLS Outpatient MADL GAMBRELER, COREY L [id number] 09/08/2013 07:58:00 09/08/2013 23: 59:59 CLS Outpatient MAGUIRE DO, ALVERTO Danyell [id number] 08/11/2013 12:31:00 08/11/2013 23: 59:59 CLS Outpatient MADL GAMBRELER, COREY L [id number] 08/10/2013 11:32:00 08/10/2013 23: 59:59 CLS Outpatient MADL GAMBRELER, COREY L [id number] 08/10/2013 11:32:00 08/10/2013 23: 59:59 CLS Outpatient MAGUIRE DO, ALVERTO Danyell [id number] 07/22/2013 13:38:00 07/22/2013 23: 59:59 CLS Outpatient MAGUIRE DO, ALVERTO K [id number] 07/20/2013 13:11:00 07/20/2013 23: 59:59 CLS Outpatient MADL GAMBRELER, COREY L [id number] 2013 15:37:00 2013 23: 59:59 CLS Outpatient MAGUIRE DO, ALVERTO K [id number] 07/08/2013 13:46:00 07/08/2013 23: 59:59 CLS Outpatient MAGUIRE DO, ALVERTO K [id number] 07/08/2013 13:46:00 07/08/2013 23: 59:59 CLS Outpatient MAGUIRE DO, ALVERTO K [id number] 07/01/2013 14:28:00 07/01/2013 23: 59:59 CLS Outpatient MAGUIRE DO, ALVERTO K [id number] 06/22/2013 11:00:00 06/22/2013 23: 59:59 CLS Outpatient MAGUIRE DO, ALVERTO K [id number] 06/03/2013 11:17:00 06/03/2013 23: 59:59 CLS Outpatient ANDREZ ALVERTO RAMSEY [id number] 05/05/2013 13:31:00 05/05/2013 23: 59:59 CLS Outpatient WILL CANO MD [id number] 05/05/2013 13:31:00 05/05/2013 23: 59:59 CLS Outpatient WILL CANO MD [id number] 08/14/2012 11:25:00 Document Registration
[2016-10-01] MEDS ORDERED: SUCRALFATE 1 GM (CARAFATE) TAB PO PRN (22:15)
[2016-10-02] VITALS (16 sets, daily range): BP systolic 104–159; BP diastolic 49–82
[2016-10-02] MEDS: RT-ALBUTEROL/IPRATROPIUM 3 ML (DUONEB) VIAL IH SCH ×6 (03:18→22:11)
[2016-10-02 04:38] LABS: BASOPHILS % (AUTO) 0 % (0-10); EOSINOPHILS % (AUTO) 0 % (0-10); LYMPHOCYTES # (AUTO) 0.9 X 10^3 (1.0-4.0); LYMPHOCYTES % (AUTO) 9 % (12-44); MEAN CORPUSCULAR HEMOGLOBIN 28 PG (25-34); MEAN CORPUSCULAR HGB CONC 33 G/DL (32-36); MEAN CORPUSCULAR VOLUME 83 FL (80-99); MEAN PLATELET VOLUME 10.7 FL (7.4-10.4); MONOCYTES # (AUTO) 0.9 X 10^3 (0.0-1.0); MONOCYTES % (AUTO) 9 % (0-12); NEUTROPHILS % (AUTO) 82 % (42-75); PLATELET COUNT 160 10^3/uL (130-400); RED BLOOD COUNT 3.53 10^6/uL (4.35-5.85); RED CELL DISTRIBUTION WIDTH 13.4 % (10.0-14.5); WHITE BLOOD COUNT 9.7 10^3/uL (4.3-11.0)
[2016-10-02] MEDS: HYDROcodone/APAP 10 MG/325 MG (LORTAB) TAB PO PRN ×3 (04:48→21:53)
[2016-10-02 05:03] LABS: CREATININE SERUM 0.94 MG/DL (0.60-1.30); MAGNESIUM 2.3 MG/DL (1.8-2.4); POTASSIUM 3.8 MMOL/L (3.6-5.0)
[2016-10-02] MEDS ORDERED: fentaNYL INJECTION 100 MCG/2 ML AMP ONE (05:25)
[2016-10-02] MEDS ORDERED: guaiFENesin/DM (ROBITUSSIN DM) 10 ML UDC ONE (05:25)
[2016-10-02] MEDS: MULTIVIT W/MINERALS TAB (THERAGRAN M) PO SCH (05:37)
[2016-10-02] MEDS: inSUlin (REGULAR) HUMAN 1 UNIT/0.01 ML (CHARGE PER UNIT) SC SCH ×4 (05:44→21:49)
[2016-10-02] MEDS ORDERED: MAGNESIUM 1 GM/100 ML IVPB 100 ML IV SCH (06:00)
[2016-10-02] MEDS ORDERED: POTASSIUM CL 10MEQ/50ML IVPB 50 ML IV SCH (06:00)
[2016-10-02] MEDS ORDERED: fentaNYL INJECTION 100 MCG/2 ML AMP IV ONE (06:15)
[2016-10-02] MEDS: guaiFENesin/DM (ROBITUSSIN DM) 10 ML UDC PO PRN ×2 (06:16→14:18)
[2016-10-02] MEDS: NS IV 1000 ML 1,000 ML IV SCH ×2 (06:18→14:16)
--- NOTE | 2016-10-02 07:25 | Pulmonary Progress Note ---
Subjective Time Seen by Provider: 07:52 Subjective/Events-last exam PT had episode of worsening respiratory failure this morning. She did improve after SVNs. Exam Exam Vital Signs Date Time Temp Pulse Resp B/P (MAP) Pulse Ox O2 Delivery O2 Flow Rate FiO2 10/02/16 06:16 98.5 10/02/16 06:00 77 17 157/71 NIV Bilevel 50.00 10/02/16 05:57 95 NIV CPAP 5.00 10/02/16 05:44 98.5 10/02/16 05:18 98.5 10/02/16 05:00 74 32 149/76 NIV Bilevel 50.00 10/02/16 04:48 98.5 10/02/16 04:00 74 23 150/78 NIV Bilevel 50.00 10/02/16 04:00 NIV Bilevel 50 10/02/16 03:00 74 16 159/75 95 NIV Bilevel 50.00 10/02/16 02:00 78 19 143/69 90 NIV Bilevel 50.00 10/02/16 01:00 69 17 137/79 98 NIV Bilevel 50.00 10/02/16 01:00 105 10/02/16 01:00 69 10/02/16 00:00 NIV Bilevel 50 10/02/16 00:00 73 20 148/75 98 NIV Bilevel 50.00 10/02/16 00:00 98.5 21 94 NIV Bilevel 50.00 10/01/16 23:00 71 29 145/75 98 NIV Bilevel 50.00 10/01/16 22:58 72 32 97 50.00 10/01/16 22:00 75 19 145/71 95 NIV Bilevel 50.00 10/01/16 21:00 75 22 152/80 98 NIV Bilevel 50.00 10/01/16 20:47 98.9 10/01/16 20:00 Nasal Cannula 2.00 10/01/16 20:00 82 21 158/76 94 NIV Bilevel 50.00 10/01/16 19:36 97 Nasal Cannula 3.00 10/01/16 19:00 70 10/01/16 19:00 70 24 146/95 96 NIV Bilevel 50.00 10/01/16 19:00 70 10/01/16 18:00 70 14 137/74 98 NIV Bilevel 50.00 10/01/16 17:00 70 28 116/66 99 NIV Bilevel 50.00 10/01/16 16:05 97.2 Nasal Cannula 5.00 10/01/16 16:05 Nasal Cannula 5.00 10/01/16 16:00 78 14 132/57 93 NIV Bilevel 50.00 10/01/16 15:30 97 Nasal Cannula 3.00 10/01/16 15:28 63 20 98 50.00 10/01/16 15:00 60 20 113/58 97 NIV Bilevel 50.00 10/01/16 14:00 60 17 109/55 99 NIV Bilevel 50.00 10/01/16 13:00 60 10/01/16 13:00 60 10/01/16 13:00 60 17 92/49 97 NIV Bilevel 50.00 10/01/16 12:00 NIV Bilevel 50 10/01/16 12:00 59 17 91/48 97 NIV Bilevel 50.00 10/01/16 11:00 65 28 94/51 97 NIV Bilevel 50.00 10/01/16 10:00 62 16 94/58 95 NIV Bilevel 50.00 10/01/16 09:47 56 20 99 50.00 10/01/16 09:47 99 NIV CPAP 50 10/01/16 09:00 56 18 92/49 100 NIV Bilevel 50.00 10/01/16 08:12 58 10/01/16 08:12 58 10/01/16 08:06 59 23 97 50.00 10/01/16 08:02 97.5 69 18 100/55 97 NIV/Bilevel 50.00 10/01/16 08:02 97.5 69 18 100/55 97 NIV Bilevel 50.00 10/01/16 08:00 NIV Bilevel 50 I & O 10/02/16 07:00 Intake Total 5900 ml Output Total 5450 ml Balance 450 ml General Appearance: WD/WN, Moderate Distress HEENT: PERRL/EOMI, TMs Normal, Normal ENT Inspection, Pharynx Normal Neck: Normal Inspection Respiratory: No Accessory Muscle Use, No Respiratory Distress, Wheezing, Other (Delayed forced expiratory phase, barking cough) Cardiovascular: Regular Rate, Rhythm, No Murmur, Other (Mild lower extremity edema) Capillary Refill: Less Than 3 Seconds Gastrointestinal: normal bowel sounds, non tender, soft, no organomegaly Extremity: Pedal Edema (Mild lower extremity edema equal bilaterally) Neurologic/Psychiatric: Alert, Oriented x3, No Motor/Sensory Deficits, Normal Mood/Affect, fitter placer II-XII Norm as Tested Skin: Normal Color, Warm/Dry Results Lab Laboratory Tests 10/01/16 04:16 10/02/16 04:20 Assessment/Plan Assessment/Plan -Acute on Chronic respiratory failure -Pt is currently on a NC eating breakfast -Pneumonia with respiratory failure -Continue SVNs, Abx -Hines cultures -Obesity Hx of vocal cord paralysis Poor IV Access 233 Keep in ICU for at least another 24hrs then probably ICU step down. Clinical Quality Measures DVT/VTE Risk/Contraindication: Risk Factor Score Per Nursin RFS Level Per Nursing on Admit: 4+=Very High MILE SUMMERS DO Oct 02, 2016 07:25
[2016-10-02] MEDS: FLUTICASONE NASAL SPRAY (FLONASE) 16 GM BTL NS SCH (08:35)
[2016-10-02] MEDS: PANTOPRAZOLE 40 MG (PROTONIX) TAB PO SCH ×2 (08:35→21:40)
[2016-10-02] MEDS: ARTIFICAL TEARS 0.4 ML UNIT DOSE (REFRESH PLUS) OU SCH ×2 (08:35→21:39)
[2016-10-02] MEDS: VITAMIN D3 1,000 UNITS (CHOLECALCIFEROL) TABLET PO SCH (08:36)
[2016-10-02] MEDS: lisINopril 5 MG (PRINIVIL) TABLET PO SCH (08:36)
[2016-10-02] MEDS: ASPIRIN E.C. 81 MG (ECOTRIN) TAB PO SCH (08:36)
[2016-10-02] MEDS: LORATADINE (CLARITIN) 10 MG TAB PO SCH (08:36)
--- NOTE | 2016-10-02 08:45 | Diagnostic Imaging Report ---
INDICATION: Dyspnea. Frontal chest obtained at 7:09 a.m. and compared with yesterday. FINDINGS: Right IJ central catheter is unchanged. The heart is borderline in size. There are extensive infiltrates throughout the right lung which appears similar to the prior study. There is milder infiltrate in the left midlung and base, without significant change. There is no pneumothorax or gross pleural fluid. IMPRESSION: Unchanged extensive infiltrate throughout the right lung. Milder infiltrate is present in the left midlung and base. There is no new abnormality. Dictated by: Dictated on workstation # [id number]
[2016-10-02] MEDS ORDERED: NON-FORMULARY MEDICATION 1 EA EA (Fluticasone Propionate (Flonase Allergy Relief) 1 SPRAY) NSEACH SCH (09:00)
[2016-10-02] MEDS ORDERED: NON-FORMULARY MEDICATION 1 EA EA (Cetirizine HCl 10 MG) PO SCH (09:00)
[2016-10-02] MEDS ORDERED: ARIPIPRAZOLE 10 MG (ABILIFY) TAB PO SCH (09:00)
[2016-10-02] MEDS ORDERED: ARIPIPRAZOLE 2.5 MG PO SCH (09:00)
[2016-10-02] MEDS ORDERED: NON-FORMULARY MEDICATION 1 EA EA PO SCH (09:00)
[2016-10-02] MEDS ORDERED: NON-FORMULARY MEDICATION 1 EA EA (Cholecalciferol (Vitamin D3) (Vitamin D3) 1,000 UNIT) PO SCH (09:00)
[2016-10-02] MEDS ORDERED: NON-FORMULARY MEDICATION 1 EA EA (Fenofibrate Nanocrystallized (Fenofibrate) 145 MG) PO SCH (09:00)
--- NOTE | 2016-10-02 10:58 | Progress Note (SOAP) ---
Subjective Subjective/Events-last exam Pt states that she was better this morning but then decided to go back on BiPAP. is more comfortable on the BiPAP. Review of Systems Date Seen by Provider: Oct 02, 2016 Time Seen by Provider: 10:20 Pulmonary: Dyspnea, Cough Objective Exam Last Set of Vital Signs Vital Signs Date Time Temp Pulse Resp B/P (MAP) Pulse Ox O2 Delivery O2 Flow Rate FiO2 10/02/16 10:16 71 22 96 50.00 10/02/16 10:07 Nasal Cannula 10/02/16 08:00 98.0 150/67 10/02/16 04:00 50 Capillary Refill : Less Than 3 Seconds I&O Bad tableGeneral: Alert, Oriented X3, Cooperative, Mild Distress Lungs: Other (wheezing/rhonchi throughout with good effort) Heart: Regular Rate, Normal S1, Normal S2, No Murmurs, Gallops, Rubs Abdomen: Normal Bowel Sounds, Soft, No Tenderness Extremities: No Clubbing, No Cyanosis, No Edema Results/Procedures Lab Laboratory Tests 10/01/16 11:50: Urine Color YELLOW, Urine Clarity CLEAR, Urine pH 5, Urine Specific [place] 1.015L, Urine Protein 1+H, Urine Glucose (UA) NEGATIVE, Urine Ketones NEGATIVE, Urine Nitrite NEGATIVE, Urine Bilirubin NEGATIVE, Urine Urobilinogen NORMAL, Urine Leukocyte Esterase NEGATIVE, Urine RBC (Auto) NEGATIVE, Urine RBC NONE, Urine WBC NONE, Urine Squamous Epithelial Cells NONE, Urine Crystals NONE, Urine Amorphous Sediment MOD ESTUARDO URATESH, Urine Bacteria NEGATIVE, Urine Casts PRESENT, Urine Hyaline Casts 0-2H, Urine Mucus NEGATIVE, Urine Culture Indicated NO 10/01/16 13:28: Glucometer 245H 10/01/16 20:43: Glucometer 305H 10/02/16 04:20: White Blood Count 9.7, Red Blood Count 3.53L, Hemoglobin 9.8L, Hematocrit 29L, Mean Corpuscular Volume 83, Mean Corpuscular Hemoglobin 28, Mean Corpuscular Hemoglobin Concent 33, Red Cell Distribution Width 13.4, Platelet Count 160, Mean Platelet Volume 10.7H, Neutrophils (%) (Auto) 82H, Lymphocytes (%) (Auto) 9L, Monocytes (%) (Auto) 9, Eosinophils (%) (Auto) 0, Basophils (%) (Auto) 0, Neutrophils # (Auto) 8.0H, Lymphocytes # (Auto) 0.9L, Monocytes # (Auto) 0.9, Eosinophils # (Auto) 0.0, Basophils # (Auto) 0.0, Sodium Level 138, Potassium Level 3.8, Chloride Level 108H, Carbon Dioxide Level 21, Anion Gap 9, Blood Urea Nitrogen 23H, Creatinine 0.94, Estimat Glomerular Filtration Rate 60, BUN/ Creatinine Ratio 24, Glucose Level 242H, Calcium Level 9.0, Magnesium Level 2.3 Microbiology 10/01/16 Blood Culture - Preliminary, Resulted No growth 10/01/16 Gram Stain - Final, Resulted 10/01/16 Sputum Culture - Preliminary, Resulted Probable Haemophilus Radiology Date of Exam:10/01/16 CHEST 1 VIEW, AP/PA ONLY INDICATION: Shortness of breath, COPD, asthma. COMPARISON STUDY: Chest from 07/08/2015. FINDINGS: Portable semiupright view of the chest demonstrates patchy infiltrates throughout the right lung and in the left base. Heart size is upper limits of normal. Vascularity is normal. There are no pleural effusions. IMPRESSION: There are bilateral pulmonary infiltrates. Assessment/Plan Assessment/Plan Admission Dx SEPTIC SHOCK COMMUNITY ACQUIRED PNEUMONIA ACUTE ON CHRONIC RESPIRATORY FAILURE DIABETES MELLITUS TYPE 2, NON INSULIN REQUIRING Plan SEPTIC SHOCK ADM: protocol initiated with fluid boluses, has received Levaquin (PCN allergy) . will monitor in ICU for now. Have consulted Dr Reid who told me he thinks intubation may be needed - as it has multiple times in dar past. BLood cultures pending. 10/02 - resolved. holding her BP. appears to have averted intubation. cultures still pending. COMMUNITY ACQUIRED PNEUMONIA ACUTE ON CHRONIC RESPIRATORY FAILURE ADM: On BiPAP now, will see how she does over the next few hours to see if intubation is required. Levaquin right now, cultures pending. IV steroids, MAT protocol. 10/02 - continue BiPAP. levaquin day 2; MAT protocol. pt is in fact not on steroids. cultures pending - sputum is haemophilus. DIABETES MELLITUS TYPE 2, NON INSULIN REQUIRING ADM: SSI per ICU protocol for now. NPO due to BiPAP. 10/02 - no change, BS above goal, will monitor for another 24h, may need more aggressive regimen ACUTE KIDNEY INJURY ADM: Baseline creatinine 0.9, up to 1.7 today. will monitor again in 12h, after fluid boluses. 10/02 - improved GFR today. DVT Proph: on SCDs, not lovenox GI proph: continue home regimen. Diagnosis/Problems: Clinical Quality Measures DVT/VTE Risk/Contraindication: Risk Factor Score Per Nursin RFS Level Per Nursing on Admit: 4+=Very High JAMAR RIVERS MD Oct 02, 2016 10:58 am
[2016-10-02] MEDS: GABAPENTIN 600 MG (NEURONTIN) TAB PO SCH (11:45)
[2016-10-02] MEDS: ONDANSETRON 4 MG/2 ML (SDV) Z0FRAN IV PRN ×2 (14:10→21:49)
[2016-10-02] MEDS: ARIPIPRAZOLE 5 MG TAB PO SCH ×2 (16:28→21:42)
[2016-10-02] MEDS ORDERED: CALC PO SCH (21:00)
[2016-10-02] MEDS ORDERED: FOLIC ACID PO SCH (21:00)
[2016-10-02] MEDS ORDERED: MULTIVIT PO SCH (21:00)
[2016-10-02] MEDS ORDERED: MONTELUKAST 10 MG (SINGULAIR) TAB PO SCH (21:00)
[2016-10-02] MEDS ORDERED: ATORVASTATIN 20 MG (LIPITOR) TABLET PO SCH (21:00)
[2016-10-02] MEDS ORDERED: GABAPENTIN 600 MG (NEURONTIN) TAB PO SCH (21:00)
[2016-10-02] MEDS ORDERED: FENOFIBRATE 134 MG (LOFIBRA) CAPSULE PO SCH (21:00)
[2016-10-02] MEDS ORDERED: SERTRALINE 100 MG (ZOLOFT) TAB PO SCH (21:00)
[2016-10-02] MEDS ORDERED: [UNRECOGNIZED DRUG - OTHER] PO SCH (21:00)
[2016-10-02] MEDS ORDERED: BUPRENORPHINE TD SCH (22:15)
[2016-10-03] VITALS (33 sets, daily range): BP systolic 91–198; BP diastolic 40–87
[2016-10-03] MEDS: RT-ALBUTEROL/IPRATROPIUM 3 ML (DUONEB) VIAL IH SCH ×6 (02:21→22:03)
[2016-10-03 05:33] LABS: BASOPHILS % (AUTO) 0 % (0-10); EOSINOPHILS % (AUTO) 0 % (0-10); LYMPHOCYTES # (AUTO) 1.4 X 10^3 (1.0-4.0); LYMPHOCYTES % (AUTO) 14 % (12-44); MEAN CORPUSCULAR HEMOGLOBIN 28 PG (25-34); MEAN CORPUSCULAR HGB CONC 32 G/DL (32-36); MEAN CORPUSCULAR VOLUME 85 FL (80-99); MEAN PLATELET VOLUME 10.3 FL (7.4-10.4); MONOCYTES # (AUTO) 1.2 X 10^3 (0.0-1.0); MONOCYTES % (AUTO) 12 % (0-12); NEUTROPHILS # (AUTO) 7.6 X 10^3 (1.8-7.8); NEUTROPHILS % (AUTO) 74 % (42-75); PLATELET COUNT 209 10^3/uL (130-400); RED BLOOD COUNT 3.34 10^6/uL (4.35-5.85); RED CELL DISTRIBUTION WIDTH 14.1 % (10.0-14.5); WHITE BLOOD COUNT 10.2 10^3/uL (4.3-11.0)
[2016-10-03 06:00] LABS: ANION GAP 11 MMOL/L (5-14); BLOOD UREA NITROGEN 17 MG/DL (7-18); BUN/CREATININE RATIO 20; CALCIUM 8.5 MG/DL (8.5-10.1); CARBON DIOXIDE 21 MMOL/L (21-32); CHLORIDE 107 MMOL/L (98-107); CREATININE SERUM 0.83 MG/DL (0.60-1.30); GFR ESTIMATED > 60; GLUCOSE 107 MG/DL (70-105); MAGNESIUM 1.8 MG/DL (1.8-2.4); PHOSPHORUS 1.9 MG/DL (2.3-4.7); POTASSIUM 3.7 MMOL/L (3.6-5.0); SODIUM 139 MMOL/L (135-145)
[2016-10-03] MEDS: KCL 20 MEQ TAB (K-DUR) PO SCH (06:16)
[2016-10-03] MEDS: inSUlin (REGULAR) HUMAN 1 UNIT/0.01 ML (CHARGE PER UNIT) SC SCH ×5 (06:16→23:39)
[2016-10-03] MEDS: POTASSIUM CL 10MEQ/50ML IVPB 50 ML IV SCH (06:16)
[2016-10-03] MEDS: MAGNESIUM 1 GM/100 ML IVPB 100 ML IV SCH (06:16)
[2016-10-03] MEDS ORDERED: LEVOFLOXACIN 750 MG/D5W 150 ML PRE-MIX IV SCH (07:00)
[2016-10-03] MEDS: MULTIVIT W/MINERALS TAB (THERAGRAN M) PO SCH (07:04)
[2016-10-03] MEDS ORDERED: FUROSEMIDE 40 MG/4 ML INJ (LASIX) IVP ONE (07:30)
[2016-10-03] MEDS ORDERED: NS IV 500 ML 500 ML ONE (07:42)
--- NOTE | 2016-10-03 07:43 | Diagnostic Imaging Report ---
INDICATION: Shortness of breath. Portable chest 4:24 AM. Comparison to the previous day. Right IJ central tip projects over the SVC. There is a dense alveolar infiltrate throughout the right lung and in the periphery and lower aspect of the left lung. The distribution and pattern of the infiltrates has not appreciably changed from previous day. There is no effusion. IMPRESSION: Stable chest with bilateral pulmonary infiltrates greater on the right than on the left. Dictated by: Dictated on workstation # [id number]
[2016-10-03] MEDS ORDERED: PROPOFOL DRIP (ICU) 100 ML IV ONE (07:46)
--- NOTE | 2016-10-03 07:48 | Pulmonary Progress Note ---
Subjective Time Seen by Provider: 07:20 Subjective/Events-last exam PT is having worsening SOB and is requiring BiPAP currently Exam Exam Vital Signs Date Time Temp Pulse Resp B/P (MAP) Pulse Ox O2 Delivery O2 Flow Rate FiO2 10/03/16 06:29 85 23 92 52.00 10/03/16 06:00 75 38 120/58 93 NIV Bilevel 53.00 10/03/16 05:00 73 36 126/61 94 NIV Bilevel 53.00 10/03/16 04:22 75 33 86 50.00 10/03/16 04:22 80 33 87 NIV Bilevel 53.00 10/03/16 04:00 NIV CPAP 6.00 10/03/16 04:00 73 30 110/60 91 NIV Bilevel 50.00 10/03/16 03:00 73 34 107/58 89 NIV Bilevel 50.00 10/03/16 02:41 71 32 93 NIV Bilevel 50.00 10/03/16 02:21 69 37 94 55.00 10/03/16 02:00 73 33 111/59 93 NIV Bilevel 55.00 10/03/16 01:00 75 10/03/16 01:00 74 30 108/54 93 NIV Bilevel 55.00 10/03/16 00:35 84 20 91 NIV Bilevel 55.00 10/03/16 00:35 82 36 90 55.00 10/03/16 00:00 85 35 120/59 85 NIV CPAP 8.00 10/03/16 00:00 NIV CPAP 6.00 10/02/16 23:10 90 34 91 NIV CPAP 8.00 10/02/16 23:00 94 26 134/75 80 NIV CPAP 4.00 10/02/16 22:23 97.0 10/02/16 22:11 92 NIV CPAP 5.00 10/02/16 22:00 84 33 154/72 90 NIV CPAP 4.00 10/02/16 22:00 97.0 10/02/16 21:53 96.8 10/02/16 21:00 79 19 127/58 89 NIV CPAP 4.00 10/02/16 20:00 73 35 104/49 90 NIV CPAP 4.00 10/02/16 20:00 NIV CPAP 4.00 10/02/16 19:00 81 10/02/16 19:00 81 17 146/82 92 NIV CPAP 4.00 10/02/16 18:51 92 Nasal Cannula 5.00 10/02/16 17:00 Nasal Cannula 6.00 10/02/16 16:28 96.8 69 17 137/69 92 NIV CPAP 4.00 10/02/16 15:25 NIV CPAP 4.00 10/02/16 14:06 92 Nasal Cannula 5.00 10/02/16 14:00 NIV CPAP 4.00 10/02/16 13:00 70 10/02/16 12:00 Nasal Cannula 3.00 10/02/16 11:27 NIV Bilevel 50 10/02/16 11:26 96.9 67 23 150/67 100 NIV Bilevel 50.00 10/02/16 10:30 NIV Bilevel 50.00 10/02/16 10:16 71 22 96 50.00 10/02/16 10:07 88 Nasal Cannula 3.00 10/02/16 08:40 Nasal Cannula 3.00 10/02/16 08:15 Nasal Cannula 6.00 10/02/16 08:00 98.0 75 28 150/67 95 Nasal Cannula 6.00 I & O 10/03/16 07:00 Intake Total 2320 ml Output Total 1975 ml Balance 345 ml General Appearance: WD/WN, Severe Distress HEENT: PERRL/EOMI, TMs Normal, Normal ENT Inspection, Pharynx Normal Neck: Normal Inspection Respiratory: No Accessory Muscle Use, No Respiratory Distress, Wheezing, Other (Delayed forced expiratory phase, barking cough) Cardiovascular: Regular Rate, Rhythm, No Murmur, Other (Mild lower extremity edema) Capillary Refill: Less Than 3 Seconds Gastrointestinal: normal bowel sounds, non tender, soft, no organomegaly Extremity: Pedal Edema (Mild lower extremity edema equal bilaterally) Neurologic/Psychiatric: Alert, Oriented x3, No Motor/Sensory Deficits, Normal Mood/Affect, living advisor II-XII Norm as Tested Skin: Normal Color, Warm/Dry Results Lab Laboratory Tests 10/02/16 04:20 10/03/16 05:27 Assessment/Plan Assessment/Plan -Acute on Chronic respiratory failure -worsening -Currently on Levaquin sputum has grown out haemophilus influenza that is beta lactamase positive. -I discussed with Jon from pharmacy and he agrees we need to change Abx to Merrem IV. Will d/c Levaquin -Check ABG in 1 hr after intubation -Diprivan gtt check BNP -OG tube -check CVP monitoring and obtain A-Line -Pneumonia with respiratory failure -Continue SVNs, Abx -Hines cultures -Obesity Hx of vocal cord paralysis Poor IV Access 120min not including intubation Discussed with patient, Dr. Claudio, nursing staff, pharmacy, and anesthesia regarding plan of care. Pt is getting worse and needs to be intubated. Clinical Quality Measures DVT/VTE Risk/Contraindication: Risk Factor Score Per Nursin RFS Level Per Nursing on Admit: 4+=Very High MILE SUMMERS DO Oct 03, 2016 07:48
[2016-10-03] MEDS ORDERED: SUCCINYLCHOLINE INJ 100 MG/5 ML SYR INJ ONE (08:00)
[2016-10-03] MEDS ORDERED: MIDAZOLAM 5 MG/5 ML (VERSED) VIAL INJ ONE (08:00)
--- NOTE | 2016-10-03 08:17 | Pulmonary Procedures ---
Pulmonary Procedures Date of Procedure Date of Service: Oct 03, 2016 Reason for Intubation: Acute respiratory failure Time of Intubation: 08:16 Medications: Propofol, Succinylcholine, Versed Positive End Tide CO2: Yes Breath Sounds after Intubation: bilateral-equal Intubation Complications: no complications Post Intubation Xray: Yes MILE SUMMERS DO Oct 03, 2016 08:17
[2016-10-03] MEDS ORDERED: fentaNYL (OMNICELL DRIP KIT ONLY) 250 MCG/5 ML AMP ONE (08:20)
[2016-10-03] MEDS ORDERED: NS (IVPB) 100 ML ONE (08:20)
[2016-10-03] MEDS ORDERED: ATRACURIUM INJECTION 250 MG in NS (IVPB) 225 ML IV SCH (08:21)
[2016-10-03] MEDS: PROPOFOL DRIP (ICU) 100 ML IV SCH ×3 (08:30→22:15)
--- NOTE | 2016-10-03 08:55 | Diagnostic Imaging Report ---
Portable upright radiograph of the chest. INDICATION: Intubation. FINDINGS: There are extensive bilateral infiltrates. ET tube is in good position. The right IJ line is at the SVC level. When compared to 10/03/2016, no significant change is seen. No significant effusion or pneumothorax is noted. IMPRESSION: Extensive bilateral infiltrates seen. Dictated by: Dictated on workstation # [id number]
--- NOTE | 2016-10-03 08:59 | Anesthesia-Procedure Note ---
Procedure Start/Stop Time Date of Procedure: Oct 03, 2016 Start Time: 08:02 Stop Time: 08:08 Procedures/Interventions Arterial Line Catheter: 20G Type: Radial Location: Right Procedure: prepped, draped in sterile fashion, good wave-form was obtained, patient tolerated procedure well, no immediate complications, post procedure area cleaned, post procedure dressing applied AVINASH SABILLON CRNA Oct 03, 2016 08:59
--- NOTE | 2016-10-03 10:11 | Pulmonary Procedures ---
Pulmonary Procedures Date of Procedure Date of Service: Oct 03, 2016 Bronch Bronchoscopy with bronchoalveolar lavage (BAL) Preop DX Mucous plugging Postop DX: same Complications: none After informed consent obtained and formal time out pt was sedated using Fentanyl Diprivan. Bronchoscope was advanced through the ET tube. An anatomical tour was undertaken down to the segmental bronchi bilaterally. No endobronchial lesions noted. Thick copious secretions noted from airways bilaterally. From the RML a bronchoalveolar lavage (BAL) obtained. Pt tolerated procedure well. No complications noted. Stat CXR is pending. MILE SUMMERS DO Oct 03, 2016 10:11
[2016-10-03] MEDS: MEROPENEM 500 MG in NS (IVPB) 100 ML IV SCH ×4 (11:01→23:39)
[2016-10-03] MEDS: APAP 325 MG/10.15 ML LIQ (TYLENOL) UDC PO PRN (11:03)
[2016-10-03 11:14] LABS: ABG HCO3 24 MMOL/L (23-27); ABG OXYGEN SATURATION 96 % (94-100); ABG PCO2 53 MMHG (35-45); ABG PO2 88 MMHG (79-93); ABG TCO2 25.1 MMOL/L (21.0-31.0)
[2016-10-03 11:19] LABS: ABG PH 7.28 (7.37-7.43); ALLENS TEST YES-POS
[2016-10-03] MEDS: fentaNYL INJECTION 1,250 MCG in NS (IVPB) 225 ML IV SCH (11:38)
[2016-10-03] MEDS: PANTOPRAZOLE 40 MG (PROTONIX) TAB PO SCH (12:40)
[2016-10-03] MEDS: ASPIRIN E.C. 81 MG (ECOTRIN) TAB PO SCH (12:40)
[2016-10-03] MEDS: LORATADINE (CLARITIN) 10 MG TAB PO SCH (12:41)
[2016-10-03] MEDS: FLUTICASONE NASAL SPRAY (FLONASE) 16 GM BTL NS SCH (12:41)
[2016-10-03] MEDS: ARIPIPRAZOLE 5 MG TAB PO SCH (12:41)
[2016-10-03] MEDS: ARTIFICAL TEARS 0.4 ML UNIT DOSE (REFRESH PLUS) OU SCH ×2 (12:42→20:29)
[2016-10-03] MEDS: lisINopril 5 MG (PRINIVIL) TABLET PO SCH (12:42)
[2016-10-03] MEDS: VITAMIN D3 1,000 UNITS (CHOLECALCIFEROL) TABLET PO SCH (12:42)
[2016-10-03] MEDS: GABAPENTIN 600 MG (NEURONTIN) TAB PO SCH (12:42)
[2016-10-03] MEDS: ARTIFICIAL TEARS OINT (LACRI-LUBE) 3.5 GM TUBE OU SCH ×4 (14:53→23:39)
--- NOTE | 2016-10-03 14:53 | Progress Note (SOAP) ---
Subjective Subjective/Events-last exam pt worsened steadily through the night, required intubation this morning Review of Systems Date Seen by Provider: Oct 03, 2016 Time Seen by Provider: 10:00 UTO Objective Exam Last Set of Vital Signs Vital Signs Date Time Temp Pulse Resp B/P (MAP) Pulse Ox O2 Delivery O2 Flow Rate FiO2 10/03/16 14:46 66 20 96 50 10/03/16 12:01 Mechanical Ventilator 10/03/16 11:48 99.1 10/03/16 11:36 106/40 10/03/16 11:30 50.00 Capillary Refill : Less Than 3 Seconds I&O Bad tableGeneral: Other (sedated on vent) Lungs: Other (rhonchi throughout) Heart: Regular Rate, Normal S1, Normal S2, No Murmurs, Gallops, Rubs Abdomen: Normal Bowel Sounds, Soft, No Tenderness Extremities: No Clubbing, No Cyanosis, No Edema Results/Procedures Lab Laboratory Tests 10/02/16 16:15: Glucometer 168H 10/02/16 21:49: Glucometer 107 10/03/16 05:27: White Blood Count 10.2, Red Blood Count 3.34L, Hemoglobin 9.2L, Hematocrit 29L, Mean Corpuscular Volume 85, Mean Corpuscular Hemoglobin 28, Mean Corpuscular Hemoglobin Concent 32, Red Cell Distribution Width 14.1, Platelet Count 209, Mean Platelet Volume 10.3, Neutrophils (%) (Auto) 74, Lymphocytes (%) (Auto) 14 , Monocytes (%) (Auto) 12, Eosinophils (%) (Auto) 0, Basophils (%) (Auto) 0, Neutrophils # (Auto) 7.6, Lymphocytes # (Auto) 1.4, Monocytes # (Auto) 1.2H, Eosinophils # (Auto) 0.0, Basophils # (Auto) 0.0, Sodium Level 139, Potassium Level 3.7, Chloride Level 107, Carbon Dioxide Level 21, Anion Gap 11, Blood Urea Nitrogen 17, Creatinine 0.83, Estimat Glomerular Filtration Rate > 60, BUN/ Creatinine Ratio 20, Glucose Level 107H, Calcium Level 8.5, Phosphorus Level 1.9L, Magnesium Level 1.8, B-Type Natriuretic Peptide 422.8H 10/03/16 11:07: Blood Gas Puncture Site RT RADIAL, Blood Gas Patient Temperature 101.0, Arterial Blood pH 7.28*L, Arterial Blood Partial Pressure CO2 53H, Arterial Blood Partial Pressure O2 88, Arterial Blood HCO3 24, Arterial Blood Total CO2 25.1, Arterial Blood Oxygen Saturation 96, Arterial Blood Base Excess -2.0, Afshin Test YES-POS, Blood Gas Ventilator Setting YES, Blood Gas Inspired Oxygen 60% Microbiology 10/01/16 Blood Culture - Preliminary, Resulted No growth 10/01/16 Gram Stain - Final, Complete 10/01/16 Sputum Culture - Final, Complete Haemophilus Influenza Normal cee Yeast Species Radiology Date of Exam:10/01/16 CHEST 1 VIEW, AP/PA ONLY INDICATION: Shortness of breath, COPD, asthma. COMPARISON STUDY: Chest from 07/08/2015. FINDINGS: Portable semiupright view of the chest demonstrates patchy infiltrates throughout the right lung and in the left base. Heart size is upper limits of normal. Vascularity is normal. There are no pleural effusions. IMPRESSION: There are bilateral pulmonary infiltrates. Assessment/Plan Assessment/Plan Admission Dx SEPTIC SHOCK COMMUNITY ACQUIRED PNEUMONIA ACUTE ON CHRONIC RESPIRATORY FAILURE DIABETES MELLITUS TYPE 2, NON INSULIN REQUIRING Plan SEPTIC SHOCK ADM: protocol initiated with fluid boluses, has received Levaquin (PCN allergy) . will monitor in ICU for now. Have consulted Dr Reid who told me he thinks intubation may be needed - as it has multiple times in dar past. BLood cultures pending. 10/02 - resolved. holding her BP. appears to have averted intubation. cultures still pending. COMMUNITY ACQUIRED PNEUMONIA ACUTE ON CHRONIC RESPIRATORY FAILURE ADM: On BiPAP now, will see how she does over the next few hours to see if intubation is required. Levaquin right now, cultures pending. IV steroids, MAT protocol. 10/02 - continue BiPAP. levaquin day 2; MAT protocol. pt is in fact not on steroids. cultures pending - sputum is haemophilus. 10/03 - B-lactamas Haemophilus. DC levaquin, start merrem. DIABETES MELLITUS TYPE 2, NON INSULIN REQUIRING ADM: SSI per ICU protocol for now. NPO due to BiPAP. 10/02 - no change, BS above goal, will monitor for another 24h, may need more aggressive regimen 10/03 - maintain ICU SSI ACUTE KIDNEY INJURY ADM: Baseline creatinine 0.9, up to 1.7 today. will monitor again in 12h, after fluid boluses. 10/02 - improved GFR today. 10/03 - resolved DVT Proph: on SCDs, not lovenox GI proph: continue home regimen. Diagnosis/Problems: Clinical Quality Measures DVT/VTE Risk/Contraindication: Risk Factor Score Per Nursin RFS Level Per Nursing on Admit: 4+=Very High JAMAR RIVERS MD Oct 03, 2016 2:53 pm
[2016-10-03] MEDS: PANTOPRAZOLE 40 MG/10 ML (PROTONIX) VIAL IV SCH (20:28)
[2016-10-03] MEDS: NS IV 1000 ML 1,000 ML IV SCH (23:38)
[2016-10-04] VITALS (38 sets, daily range): BP systolic 94–200; BP diastolic 36–73
[2016-10-04] MEDS ORDERED: fentaNYL (OMNICELL DRIP KIT ONLY) 250 MCG/5 ML AMP ONE (01:40)
[2016-10-04] MEDS ORDERED: NS (IVPB) 100 ML ONE (01:41)
[2016-10-04] MEDS: RT-ALBUTEROL/IPRATROPIUM 3 ML (DUONEB) VIAL IH SCH ×6 (02:08→22:20)
[2016-10-04] MEDS: PROPOFOL DRIP (ICU) 100 ML IV SCH ×4 (03:15→19:15)
[2016-10-04] MEDS: ARTIFICIAL TEARS OINT (LACRI-LUBE) 3.5 GM TUBE OU SCH ×2 (03:15→08:22)
[2016-10-04 04:05] LABS: ABG BASE EXCESS -0.6 MMOL/L (-2.5-2.5); ABG HCO3 24 MMOL/L (23-27); ABG OXYGEN SATURATION 97 % (94-100); ABG PCO2 46 MMHG (35-45); ABG PO2 85 MMHG (79-93); ABG TCO2 25.7 MMOL/L (21.0-31.0); BASOPHILS % (AUTO) 0 % (0-10); EOSINOPHILS # (AUTO) 0.1 10^3/uL (0.0-0.3); EOSINOPHILS % (AUTO) 1 % (0-10); LYMPHOCYTES % (AUTO) 11 % (12-44); MEAN CORPUSCULAR HEMOGLOBIN 28 PG (25-34); MEAN CORPUSCULAR HGB CONC 32 G/DL (32-36); MEAN CORPUSCULAR VOLUME 87 FL (80-99); MEAN PLATELET VOLUME 10.3 FL (7.4-10.4); MONOCYTES # (AUTO) 1.1 X 10^3 (0.0-1.0); MONOCYTES % (AUTO) 12 % (0-12); NEUTROPHILS # (AUTO) 7.1 X 10^3 (1.8-7.8); NEUTROPHILS % (AUTO) 76 % (42-75); PLATELET COUNT 167 10^3/uL (130-400); RED BLOOD COUNT 2.84 10^6/uL (4.35-5.85); RED CELL DISTRIBUTION WIDTH 14.1 % (10.0-14.5); WHITE BLOOD COUNT 9.3 10^3/uL (4.3-11.0)
[2016-10-04 04:11] LABS: ABG PH 7.34 (7.37-7.43); ALLENS TEST YES-POS; PATIENT TEMP 98.5
[2016-10-04 04:22] LABS: ANION GAP 10 MMOL/L (5-14); BLOOD UREA NITROGEN 14 MG/DL (7-18); BUN/CREATININE RATIO 19; CALCIUM 8.6 MG/DL (8.5-10.1); CARBON DIOXIDE 22 MMOL/L (21-32); CHLORIDE 109 MMOL/L (98-107); CREATININE SERUM 0.75 MG/DL (0.60-1.30); GFR ESTIMATED > 60; GLUCOSE 101 MG/DL (70-105); MAGNESIUM 1.8 MG/DL (1.8-2.4); PHOSPHORUS 2.9 MG/DL (2.3-4.7); POTASSIUM 3.3 MMOL/L (3.6-5.0); SODIUM 141 MMOL/L (135-145)
[2016-10-04] MEDS: POTASSIUM CL 10MEQ/50ML IVPB 50 ML IV SCH ×8 (04:32→13:07)
[2016-10-04] MEDS: MAGNESIUM 1 GM/100 ML IVPB 100 ML IV SCH (04:32)
[2016-10-04] MEDS: KCL 20 MEQ TAB (K-DUR) PO SCH (04:33)
[2016-10-04] MEDS: MEROPENEM 500 MG in NS (IVPB) 100 ML IV SCH ×3 (05:52→18:43)
[2016-10-04] MEDS: inSUlin (REGULAR) HUMAN 1 UNIT/0.01 ML (CHARGE PER UNIT) SC SCH ×3 (05:52→18:43)
[2016-10-04] MEDS ORDERED: FLUCONAZOLE 200 MG/100 ML 100 ML IV NR (06:45)
--- NOTE | 2016-10-04 06:52 | Pulmonary Progress Note ---
Subjective Time Seen by Provider: 06:45 Subjective/Events-last exam Pt has been hypotensive through the night however currently her SBP is 120's. Exam Exam Vital Signs Date Time Temp Pulse Resp B/P (MAP) Pulse Ox O2 Delivery O2 Flow Rate FiO2 10/04/16 06:17 71 25 95 55 10/04/16 06:00 69 27 112/43 95 Mechanical Ventilator 55.00 111/51 10/04/16 05:00 70 26 117/42 94 Mechanical Ventilator 55.00 110/56 10/04/16 04:10 67 21 95 55 10/04/16 04:02 98.5 Mechanical Ventilator 55.00 10/04/16 04:00 66 23 94/36 94 Mechanical Ventilator 55.00 98/48 10/04/16 04:00 Mechanical Ventilator 55 10/04/16 03:15 69 10/04/16 03:00 72 25 95/36 92 Mechanical Ventilator 55.00 94/46 10/04/16 02:09 87 29 96 60 10/04/16 02:00 88 28 200/58 89 Mechanical Ventilator 55.00 123/67 10/04/16 01:00 71 10/04/16 01:00 71 24 141/44 93 Mechanical Ventilator 55.00 106/53 10/04/16 00:05 74 22 95 55 10/04/16 00:00 Mechanical Ventilator 55 10/04/16 00:00 75 17 147/43 92 Mechanical Ventilator 55.00 109/55 10/03/16 23:58 98.6 Mechanical Ventilator 55.00 10/03/16 23:00 85 25 161/44 92 Mechanical Ventilator 55.00 119/58 10/03/16 22:15 76 10/03/16 22:05 67 22 113/44 96 Mechanical Ventilator 55.00 10/03/16 22:03 68 23 96 60 10/03/16 22:00 67 23 110/44 97 Mechanical Ventilator 60.00 95/49 10/03/16 21:00 71 23 115/45 96 Mechanical Ventilator 60.00 96/52 10/03/16 20:14 72 23 95 60 10/03/16 20:00 Mechanical Ventilator 60 10/03/16 20:00 74 24 117/48 95 Mechanical Ventilator 60.00 96/52 10/03/16 19:30 98.4 Mechanical Ventilator 60.00 10/03/16 19:00 82 10/03/16 19:00 82 27 118/40 94 Mechanical Ventilator 60.00 97/49 10/03/16 18:29 100 29 91 45 10/03/16 18:00 89 26 125/72 92 Mechanical Ventilator 45.00 10/03/16 17:00 82 24 108/53 90 Mechanical Ventilator 45.00 10/03/16 16:33 73 21 93 45 10/03/16 16:28 99.9 NIV Bilevel 45.00 10/03/16 16:25 Mechanical Ventilator 45 10/03/16 16:00 81 22 98/52 92 Mechanical Ventilator 50.00 10/03/16 15:00 92 20 121/59 93 Mechanical Ventilator 50.00 10/03/16 14:46 66 20 96 50 10/03/16 14:00 69 22 95/55 95 Mechanical Ventilator 50.00 10/03/16 13:00 70 23 100/55 96 Mechanical Ventilator 50.00 10/03/16 13:00 69 10/03/16 12:34 70 20 94 50 10/03/16 12:01 Mechanical Ventilator 50 10/03/16 11:48 99.1 10/03/16 11:36 106/40 10/03/16 11:30 99.1 Mechanical Ventilator 50.00 10/03/16 11:03 102.3 10/03/16 11:00 91 25 91/55 97 Mechanical Ventilator 50.00 10/03/16 11:00 101.0 Mechanical Ventilator 50.00 10/03/16 10:26 89 20 96 60 10/03/16 10:00 89 19 100 Mechanical Ventilator 60.00 10/03/16 09:44 14 10/03/16 09:00 95 23 154/52 100 Mechanical Ventilator 60.00 10/03/16 09:00 102.3 Mechanical Ventilator 60.00 10/03/16 08:30 143/82 10/03/16 08:00 92 26 96 100 10/03/16 08:00 99.8 NIV Bilevel 55.00 10/03/16 08:00 20 99 NIV Bilevel 55.00 10/03/16 08:00 NIV Bilevel 55 10/03/16 07:00 92 10/03/16 07:00 38 135/87 91 NIV Bilevel 53.00 I & O 10/04/16 07:00 Intake Total 1511 ml Output Total 2225 ml Balance -714 ml General Appearance: WD/WN, Moderate Distress HEENT: PERRL/EOMI, TMs Normal, Normal ENT Inspection, Pharynx Normal Neck: Normal Inspection Respiratory: No Accessory Muscle Use, No Respiratory Distress, Wheezing, Other (Delayed forced expiratory phase, barking cough) Cardiovascular: Regular Rate, Rhythm, No Murmur, Other (Mild lower extremity edema) Capillary Refill: Less Than 3 Seconds Gastrointestinal: normal bowel sounds, non tender, soft, no organomegaly Extremity: Pedal Edema (Mild lower extremity edema equal bilaterally) Neurologic/Psychiatric: Alert, Oriented x3, No Motor/Sensory Deficits, Normal Mood/Affect, eddy current inspector II-XII Norm as Tested Skin: Normal Color, Warm/Dry Results Lab Laboratory Tests 10/03/16 05:27 10/04/16 03:52 Assessment/Plan Assessment/Plan --Acute on Chronic respiratory failure -worsening -Continue Merrem start Diflucan -Diprivan gtt, and fentanyl -Start TF with [facility] -Will consult dietary - Continuous CVP monitoring -Pneumonia with respiratory failure with ARDS Pa02/Fi02 = 154 -Increase PEEP to [id number], -continue vent AC 20/450/10 -No attempts at ventilator weaning this weekend. Will continue daily sedation vacation -Continue SVNs, Abx -Hines cultures Hypokalemia -replace -Obesity Hx of vocal cord paralysis Poor IV Access 60min spent with patient and medical staff. Will discuss with admitting regarding plan of care. I am out of town this weekend. I will have RN call me daily and PRN with updates and concerns. I am reachable by phone. Dr. Claudio along with EICU is going to be managing ventilator. Clinical Quality Measures DVT/VTE Risk/Contraindication: Risk Factor Score Per Nursin RFS Level Per Nursing on Admit: 4+=Very High MILE SUMMERS DO Oct 04, 2016 06:52
--- NOTE | 2016-10-04 07:59 | Diagnostic Imaging Report ---
Portable upright radiograph of the chest. INDICATION: Pneumonia. COMPARISON: 10/03/2016. FINDINGS: There is an ET tube, NG tube, and right IJ line all in place. Extensive bilateral pulmonary infiltrates are again noted without significant change. There is slightly decreased pulmonary inflation compared to the prior study. The cardiac contour is largely obscured. There is suggestion of a small right effusion. No pneumothorax. IMPRESSION: Stable extensive pulmonary infiltrates and minimally decreased lung volumes. Dictated by: Dictated on workstation # [id number]
[2016-10-04] MEDS: PANTOPRAZOLE 40 MG/10 ML (PROTONIX) VIAL IV SCH ×2 (08:22→20:25)
[2016-10-04] MEDS: ARTIFICAL TEARS 0.4 ML UNIT DOSE (REFRESH PLUS) OU SCH ×2 (08:22→20:25)
[2016-10-04] MEDS: APAP 325 MG/10.15 ML LIQ (TYLENOL) UDC PO PRN (10:14)
[2016-10-04] MEDS: fentaNYL INJECTION 1,250 MCG in NS (IVPB) 225 ML IV SCH (10:48)
[2016-10-04] MEDS ORDERED: VANCOMYCIN INJECTION 0.1 MG in NS (IVPB) 250 ML IV SCH (11:30)
[2016-10-04] MEDS ORDERED: VANCOMYCIN 1500 MG/NS 500 ML IVPB IV NR ×2 (12:00)
--- NOTE | 2016-10-04 12:10 | Progress Note (SOAP) ---
Subjective Subjective/Events-last exam Sedated on vent, has had a fever yesterday and now this morning. Review of Systems Date Seen by Provider: Oct 04, 2016 Time Seen by Provider: 11:00 UTO Objective Exam Last Set of Vital Signs Vital Signs Date Time Temp Pulse Resp B/P (MAP) Pulse Ox O2 Delivery O2 Flow Rate FiO2 10/04/16 10:38 101.3 112 27 133/55 98 Mechanical Ventilator 50 10/04/16 10:25 50.00 Capillary Refill : Less Than 3 Seconds I&O Intake and Output 10/03/16 23:59 Intake Total 1711 ml Output Total 2450 ml Balance -739 ml Intake Oral 200 ml IV Total 1461 ml Tube Feeding 50 ml Output Urine Total 2350 ml Gastric Drainage Total 100 ml General: Other (sedated, intubated) Lungs: Other (rhonchi throughout) Heart: Regular Rate, Normal S1, Normal S2, No Murmurs, Gallops, Rubs Abdomen: Normal Bowel Sounds, Soft, No Tenderness Extremities: No Clubbing, No Cyanosis, No Edema Results/Procedures Lab Laboratory Tests 10/04/16 03:52: White Blood Count 9.3, Red Blood Count 2.84L, Hemoglobin 7.9L, Hematocrit 25L, Mean Corpuscular Volume 87, Mean Corpuscular Hemoglobin 28, Mean Corpuscular Hemoglobin Concent 32, Red Cell Distribution Width 14.1, Platelet Count 167, Mean Platelet Volume 10.3, Neutrophils (%) (Auto) 76H, Lymphocytes (%) (Auto) 11L, Monocytes (%) (Auto) 12, Eosinophils (%) (Auto) 1, Basophils (%) (Auto) 0, Neutrophils # (Auto) 7.1, Lymphocytes # (Auto) 1.0, Monocytes # (Auto) 1.1H, Eosinophils # (Auto) 0.1, Basophils # (Auto) 0.0, Blood Gas Puncture Site RIGHT RADIAL, Blood Gas Patient Temperature 98.5, Arterial Blood pH 7.34*L, Arterial Blood Partial Pressure CO2 46H, Arterial Blood Partial Pressure O2 85, Arterial Blood HCO3 24, Arterial Blood Total CO2 25.7, Arterial Blood Oxygen Saturation 97, Arterial Blood Base Excess -0.6, Afshin Test YES-POS, Blood Gas Ventilator Setting YES, Blood Gas Inspired Oxygen 55%, Sodium Level 141, Potassium Level 3.3L, Chloride Level 109H, Carbon Dioxide Level 22, Anion Gap 10, Blood Urea Nitrogen 14, Creatinine 0.75, Estimat Glomerular Filtration Rate > 60, BUN/ Creatinine Ratio 19, Glucose Level 101, Calcium Level 8.6, Phosphorus Level 2.9 , Magnesium Level 1.8 Microbiology 10/01/16 Blood Culture - Preliminary, Resulted No growth 10/03/16 Gram Stain - Final, Resulted 10/03/16 Bronchial Culture - Preliminary, Resulted No growth 10/03/16 Fungal Culture, Resulted Pending Radiology Date of Exam:10/01/16 CHEST 1 VIEW, AP/PA ONLY INDICATION: Shortness of breath, COPD, asthma. COMPARISON STUDY: Chest from 07/08/2015. FINDINGS: Portable semiupright view of the chest demonstrates patchy infiltrates throughout the right lung and in the left base. Heart size is upper limits of normal. Vascularity is normal. There are no pleural effusions. IMPRESSION: There are bilateral pulmonary infiltrates. Assessment/Plan Assessment/Plan Admission Dx SEPTIC SHOCK COMMUNITY ACQUIRED PNEUMONIA ACUTE ON CHRONIC RESPIRATORY FAILURE DIABETES MELLITUS TYPE 2, NON INSULIN REQUIRING Plan SEPTIC SHOCK ADM: protocol initiated with fluid boluses, has received Levaquin (PCN allergy) . will monitor in ICU for now. Have consulted Dr Reid who told me he thinks intubation may be needed - as it has multiple times in dar past. BLood cultures pending. 10/02 - resolved. holding her BP. appears to have averted intubation. cultures still pending. COMMUNITY ACQUIRED PNEUMONIA ACUTE ON CHRONIC RESPIRATORY FAILURE ADM: On BiPAP now, will see how she does over the next few hours to see if intubation is required. Levaquin right now, cultures pending. IV steroids, MAT protocol. 10/02 - continue BiPAP. levaquin day 2; MAT protocol. pt is in fact not on steroids. cultures pending - sputum is haemophilus. 10/03 - B-lactamas Haemophilus. DC levaquin, start merrem. 10/04 - resp cx also grew yeast - diflucan started today. vanc also added due to another fever today. merrem day 2. vent to be managed by Dr Plaza with phone assistance from Dr Reid and also Alice. I will be available to come in over the weekend if necessary. DIABETES MELLITUS TYPE 2, NON INSULIN REQUIRING ADM: SSI per ICU protocol for now. NPO due to BiPAP. 10/02 - no change, BS above goal, will monitor for another 24h, may need more aggressive regimen 10/03 - maintain ICU SSI 10/04 - improved, continue ICU SSI ACUTE KIDNEY INJURY ADM: Baseline creatinine 0.9, up to 1.7 today. will monitor again in 12h, after fluid boluses. 10/02 - improved GFR today. 10/03 - resolved ANEMIA, HEMODILUTIONAL 10/04 - 1 unit PRBCs today DVT Proph: on SCDs, not lovenox GI proph: continue home regimen. DISPOSITION 10/04 - UR asking if patient is LTAC appropriate. we will see how she does this weekend and make a decision from there. no plans to extubate this weekend. Diagnosis/Problems: Clinical Quality Measures DVT/VTE Risk/Contraindication: Risk Factor Score Per Nursin RFS Level Per Nursing on Admit: 4+=Very High JAMAR RIVERS MD Oct 04, 2016 12:10 pm
[2016-10-04] MEDS: NS IV 1000 ML 1,000 ML IV SCH ×2 (13:08→20:25)
[2016-10-05] VITALS (34 sets, daily range): BP systolic 95–160; BP diastolic 38–94
[2016-10-05] MEDS: MEROPENEM 500 MG in NS (IVPB) 100 ML IV SCH ×5 (00:05→23:08)
[2016-10-05] MEDS: PROPOFOL DRIP (ICU) 100 ML IV SCH ×5 (00:05→22:33)
[2016-10-05] MEDS: inSUlin (REGULAR) HUMAN 1 UNIT/0.01 ML (CHARGE PER UNIT) SC SCH ×5 (00:13→23:07)
[2016-10-05] MEDS: VANCOMYCIN 1250 MG/NS 250 ML IVPB IV SCH ×6 (00:49→23:40)
[2016-10-05] MEDS ORDERED: NS (IVPB) 100 ML ONE (02:10)
[2016-10-05] MEDS ORDERED: fentaNYL (OMNICELL DRIP KIT ONLY) 250 MCG/5 ML AMP ONE (02:10)
[2016-10-05] MEDS: RT-ALBUTEROL/IPRATROPIUM 3 ML (DUONEB) VIAL IH SCH ×6 (02:20→22:17)
[2016-10-05 04:16] LABS: BASOPHILS % (AUTO) 0 % (0-10); EOSINOPHILS # (AUTO) 0.2 10^3/uL (0.0-0.3); EOSINOPHILS % (AUTO) 1 % (0-10); LYMPHOCYTES # (AUTO) 1.1 X 10^3 (1.0-4.0); LYMPHOCYTES % (AUTO) 9 % (12-44); MEAN CORPUSCULAR HEMOGLOBIN 28 PG (25-34); MEAN CORPUSCULAR HGB CONC 32 G/DL (32-36); MEAN CORPUSCULAR VOLUME 88 FL (80-99); MEAN PLATELET VOLUME 10.3 FL (7.4-10.4); MONOCYTES # (AUTO) 1.3 X 10^3 (0.0-1.0); MONOCYTES % (AUTO) 10 % (0-12); NEUTROPHILS # (AUTO) 10.1 X 10^3 (1.8-7.8); NEUTROPHILS % (AUTO) 80 % (42-75); PLATELET COUNT 209 10^3/uL (130-400); RED BLOOD COUNT 3.15 10^6/uL (4.35-5.85); RED CELL DISTRIBUTION WIDTH 14.8 % (10.0-14.5); WHITE BLOOD COUNT 12.7 10^3/uL (4.3-11.0)
[2016-10-05 04:17] LABS: ABG BASE EXCESS -4.2 MMOL/L (-2.5-2.5); ABG HCO3 21 MMOL/L (23-27); ABG OXYGEN SATURATION 95 % (94-100); ABG PCO2 49 MMHG (35-45); ABG PO2 82 MMHG (79-93); ABG TCO2 22.8 MMOL/L (21.0-31.0)
[2016-10-05 04:24] LABS: ABG PH 7.27 (7.37-7.43)
[2016-10-05 04:25] LABS: ALLENS TEST ART LINE; PATIENT TEMP 100.6
[2016-10-05 04:39] LABS: ANION GAP 11 MMOL/L (5-14); BLOOD UREA NITROGEN 14 MG/DL (7-18); BUN/CREATININE RATIO 20; CALCIUM 8.4 MG/DL (8.5-10.1); CARBON DIOXIDE 19 MMOL/L (21-32); CHLORIDE 113 MMOL/L (98-107); GFR ESTIMATED > 60; GLUCOSE 165 MG/DL (70-105); MAGNESIUM 1.9 MG/DL (1.8-2.4); PHOSPHORUS 3.1 MG/DL (2.3-4.7); POTASSIUM 4.1 MMOL/L (3.6-5.0); SODIUM 143 MMOL/L (135-145)
[2016-10-05] MEDS: NS IV 1000 ML 1,000 ML IV SCH (05:04)
[2016-10-05] MEDS: POTASSIUM CL 10MEQ/50ML IVPB 50 ML IV SCH (06:05)
[2016-10-05] MEDS: MAGNESIUM 1 GM/100 ML IVPB 100 ML IV SCH (06:05)
[2016-10-05] MEDS: KCL 20 MEQ TAB (K-DUR) PO SCH (06:06)
[2016-10-05] MEDS: FLUCONAZOLE 100 MG/50 ML 50 ML IV SCH (09:08)
[2016-10-05] MEDS: LACTATED RINGERS 1,000 ML IV SCH ×2 (09:08→20:08)
[2016-10-05] MEDS: ARTIFICAL TEARS 0.4 ML UNIT DOSE (REFRESH PLUS) OU SCH ×2 (09:08→20:08)
[2016-10-05] MEDS: PANTOPRAZOLE 40 MG/10 ML (PROTONIX) VIAL IV SCH ×2 (09:08→20:08)
[2016-10-05] MEDS: fentaNYL INJECTION 1,250 MCG in NS (IVPB) 225 ML IV SCH ×2 (09:09→10:51)
--- NOTE | 2016-10-05 10:20 | Diagnostic Imaging Report ---
INDICATION: Dyspnea. TECHNIQUE: Single view chest 5:33 AM. CORRELATION STUDY: 10/04/2016 FINDINGS: Endotracheal tube, gastric tube and right IJ central line remain in place. Heart size and mediastinum are generally stable. There is extensive 5-lobed infiltrate again demonstrated. This may be very slightly improved on the left, overall slightly more consolidated on the right. IMPRESSION: 1. Stable support lines and tubes. Extensive 5-lobed infiltrates again demonstrated. Dictated by: Dictated on workstation # [id number]
--- NOTE | 2016-10-05 15:22 | Progress Note (SOAP) ---
Subjective Subjective/Events-last exam Remains sedated and on mechanical ventilation. Review of Systems Date Seen by Provider: Oct 05, 2016 Time Seen by Provider: 09:45 Objective Exam Last Set of Vital Signs Vital Signs Date Time Temp Pulse Resp B/P (MAP) Pulse Ox O2 Delivery O2 Flow Rate FiO2 10/05/16 13:00 71 30 126/48 92 Mechanical Ventilator 60.00 119/57 10/05/16 12:58 60 10/05/16 12:30 97.9 Capillary Refill : Less Than 3 Seconds I&O Intake and Output 10/05/16 00:00 Intake Total 3906 ml Output Total 1295 ml Balance 2611 ml Intake Oral 0 ml IV Total 3515 ml Tube Feeding 183 ml Other 208 ml Output Urine Total 1220 ml Gastric Drainage Total 75 ml General: Other (Sedated and intubated) HEENT: PERRLA, Mucous Memb Moist/[place] Lungs: Other (Diffuse crackles, no wheezing, breathing over vent) Heart: Regular Rate, No Murmurs Abdomen: Normal Bowel Sounds, Soft Extremities: Other (2+ pitting edema bilaterally) Skin: No Rashes Results/Procedures Lab Laboratory Tests 10/04/16 18:43: Glucometer 104 10/05/16 00:12: Glucometer 128H 10/05/16 04:09: White Blood Count 12.7H, Red Blood Count 3.15L, Hemoglobin 8.9L, Hematocrit 28L , Mean Corpuscular Volume 88, Mean Corpuscular Hemoglobin 28, Mean Corpuscular Hemoglobin Concent 32, Red Cell Distribution Width 14.8H, Platelet Count 209, Mean Platelet Volume 10.3, Neutrophils (%) (Auto) 80H, Lymphocytes (%) (Auto) 9L , Monocytes (%) (Auto) 10, Eosinophils (%) (Auto) 1, Basophils (%) (Auto) 0, Neutrophils # (Auto) 10.1H, Lymphocytes # (Auto) 1.1, Monocytes # (Auto) 1.3H, Eosinophils # (Auto) 0.2, Basophils # (Auto) 0.0, Blood Gas Puncture Site ART LINE, Blood Gas Patient Temperature 100.6, Arterial Blood pH 7.27*L, Arterial Blood Partial Pressure CO2 49H, Arterial Blood Partial Pressure O2 82, Arterial Blood HCO3 21L, Arterial Blood Total CO2 22.8, Arterial Blood Oxygen Saturation 95, Arterial Blood Base Excess -4.2L, Afshin Test ART LINE, Blood Gas Ventilator Setting YES, Blood Gas Inspired Oxygen 55%, Sodium Level 143, Potassium Level 4.1, Chloride Level 113H, Carbon Dioxide Level 19L, Anion Gap 11, Blood Urea Nitrogen 14, Creatinine 0.70, Estimat Glomerular Filtration Rate > 60, BUN/ Creatinine Ratio 20, Glucose Level 165H, Calcium Level 8.4L, Phosphorus Level 3.1, Magnesium Level 1.9 Microbiology 10/01/16 Blood Culture - Preliminary, Resulted No growth 10/03/16 Mycobacterial Culture - Preliminary, Resulted Radiology Date of Exam:10/01/16 CHEST 1 VIEW, AP/PA ONLY INDICATION: Shortness of breath, COPD, asthma. COMPARISON STUDY: Chest from 07/08/2015. FINDINGS: Portable semiupright view of the chest demonstrates patchy infiltrates throughout the right lung and in the left base. Heart size is upper limits of normal. Vascularity is normal. There are no pleural effusions. IMPRESSION: There are bilateral pulmonary infiltrates. Assessment/Plan Assessment/Plan Admission Dx SEPTIC SHOCK COMMUNITY ACQUIRED PNEUMONIA ACUTE ON CHRONIC RESPIRATORY FAILURE DIABETES MELLITUS TYPE 2, NON INSULIN REQUIRING Plan SEPTIC SHOCK ADM: protocol initiated with fluid boluses, has received Levaquin (PCN allergy) . will monitor in ICU for now. Have consulted Dr Reid who told me he thinks intubation may be needed - as it has multiple times in dar past. BLood cultures pending. 10/02 - resolved. holding her BP. appears to have averted intubation. cultures still pending. COMMUNITY ACQUIRED PNEUMONIA ACUTE ON CHRONIC RESPIRATORY FAILURE, considered for ARDS ADM: On BiPAP now, will see how she does over the next few hours to see if intubation is required. Levaquin right now, cultures pending. IV steroids, MAT protocol. 10/02 - continue BiPAP. levaquin day 2; MAT protocol. pt is in fact not on steroids. cultures pending - sputum is haemophilus. 10/03 - B-lactamas Haemophilus. DC levaquin, start merrem. 10/04 - resp cx also grew yeast - diflucan started today. vanc also added due to another fever today. merrem day 2. vent to be managed by Dr Plaza with phone assistance from Dr Reid and also Alice. I will be available to come in over the weekend if necessary. 10/05 - pH 7.27 this AM, Dr Reid notified, repeat ABG in AM, Afebrile since yesterday AM, Continue Diflucan, Merropenum and Vanc DIABETES MELLITUS TYPE 2, NON INSULIN REQUIRING ADM: SSI per ICU protocol for now. NPO due to BiPAP. 10/02 - no change, BS above goal, will monitor for another 24h, may need more aggressive regimen 10/03 - maintain ICU SSI 10/04 - improved, continue ICU SSI 10/05 - Blood sugars at goal, Continue ICU SSI ACUTE KIDNEY INJURY: Resolved ANEMIA, HEMODILUTIONAL 10/04 - 1 unit PRBCs today DVT Proph: on SCDs, not lovenox GI proph: continue home regimen. DISPOSITION 10/04 - UR asking if patient is LTAC appropriate. we will see how she does this weekend and make a decision from there. no plans to extubate this weekend. 10/05 - Patient continues to need full mechanical ventilation Diagnosis/Problems: Clinical Quality Measures DVT/VTE Risk/Contraindication: Risk Factor Score Per Nursin RFS Level Per Nursing on Admit: 4+=Very High RICHIE PLAZA MD Oct 05, 2016 15:22
[2016-10-05] MEDS: CATHETER FLUSH 10 ML SYR IV PRN (20:08)
[2016-10-06] VITALS (43 sets, daily range): BP systolic 91–178; BP diastolic 20–76
[2016-10-06] MEDS: RT-ALBUTEROL/IPRATROPIUM 3 ML (DUONEB) VIAL IH SCH ×6 (02:19→21:58)
[2016-10-06] MEDS: fentaNYL INJECTION 1,250 MCG in NS (IVPB) 225 ML IV SCH ×2 (03:00→22:21)
[2016-10-06 04:42] LABS: BASOPHILS % (AUTO) 0 % (0-10); EOSINOPHILS # (AUTO) 0.2 10^3/uL (0.0-0.3); EOSINOPHILS % (AUTO) 2 % (0-10); LYMPHOCYTES # (AUTO) 1.2 X 10^3 (1.0-4.0); LYMPHOCYTES % (AUTO) 11 % (12-44); MEAN CORPUSCULAR HEMOGLOBIN 28 PG (25-34); MEAN CORPUSCULAR HGB CONC 31 G/DL (32-36); MEAN CORPUSCULAR VOLUME 89 FL (80-99); MEAN PLATELET VOLUME 10.3 FL (7.4-10.4); MONOCYTES # (AUTO) 0.8 X 10^3 (0.0-1.0); MONOCYTES % (AUTO) 7 % (0-12); NEUTROPHILS # (AUTO) 9.1 X 10^3 (1.8-7.8); NEUTROPHILS % (AUTO) 81 % (42-75); PLATELET COUNT 197 10^3/uL (130-400); RED BLOOD COUNT 2.71 10^6/uL (4.35-5.85); RED CELL DISTRIBUTION WIDTH 14.8 % (10.0-14.5); WHITE BLOOD COUNT 11.3 10^3/uL (4.3-11.0)
[2016-10-06 04:43] LABS: ABG BASE EXCESS -2.1 MMOL/L (-2.5-2.5); ABG HCO3 23 MMOL/L (23-27); ABG OXYGEN SATURATION 96 % (94-100); ABG PCO2 43 MMHG (35-45); ABG PO2 75 MMHG (79-93); ABG TCO2 24.1 MMOL/L (21.0-31.0)
[2016-10-06 04:45] LABS: ALLENS TEST ART LINE
[2016-10-06 04:46] LABS: ABG PH 7.34 (7.37-7.43); PATIENT TEMP 98.6
[2016-10-06] MEDS: LACTATED RINGERS 1,000 ML IV SCH (04:51)
[2016-10-06] MEDS: PROPOFOL DRIP (ICU) 100 ML IV SCH ×5 (04:51→23:18)
[2016-10-06 04:59] LABS: ANION GAP 7 MMOL/L (5-14); BLOOD UREA NITROGEN 14 MG/DL (7-18); BUN/CREATININE RATIO 24; CALCIUM 7.4 MG/DL (8.5-10.1); CARBON DIOXIDE 19 MMOL/L (21-32); CHLORIDE 117 MMOL/L (98-107); CREATININE SERUM 0.59 MG/DL (0.60-1.30); GFR ESTIMATED > 60; GLUCOSE 153 MG/DL (70-105); MAGNESIUM 1.6 MG/DL (1.8-2.4); POTASSIUM 3.7 MMOL/L (3.6-5.0); SODIUM 143 MMOL/L (135-145)
[2016-10-06] MEDS: KCL 20 MEQ TAB (K-DUR) PO SCH (05:17)
[2016-10-06] MEDS: POTASSIUM CL 10MEQ/50ML IVPB 50 ML IV SCH (05:17)
[2016-10-06] MEDS: MAGNESIUM 1 GM/100 ML IVPB 100 ML IV SCH ×3 (05:24→06:31)
[2016-10-06] MEDS: MEROPENEM 500 MG in NS (IVPB) 100 ML IV SCH ×3 (05:37→18:23)
[2016-10-06] MEDS: inSUlin (REGULAR) HUMAN 1 UNIT/0.01 ML (CHARGE PER UNIT) SC SCH ×3 (05:37→19:01)
[2016-10-06] MEDS: PANTOPRAZOLE 40 MG/10 ML (PROTONIX) VIAL IV SCH ×2 (08:12→21:14)
[2016-10-06] MEDS: ARTIFICAL TEARS 0.4 ML UNIT DOSE (REFRESH PLUS) OU SCH ×2 (08:12→21:14)
[2016-10-06] MEDS: FLUCONAZOLE 100 MG/50 ML 50 ML IV SCH (08:12)
--- NOTE | 2016-10-06 09:21 | Diagnostic Imaging Report ---
INDICATION: Dyspnea. Comparison made with prior examination from 10/05/16. FINDINGS: There's cardiomegaly. There is diffuse bilateral airspace disease right greater than left. There is no pleural effusion or pneumothorax. Lines and tubes are in satisfactory position. Some underlying central pulmonary venous congestion cannot be excluded. IMPRESSION: Persistent diffuse bilateral airspace disease right greater than left. Underlying congestive failure cannot be excluded. Recommend clinical correlation. Dictated by: Dictated on workstation # [id number]
[2016-10-06] MEDS ORDERED: FUROSEMIDE 40 MG/4 ML INJ (LASIX) IVP NR ×2 (10:00→21:00)
[2016-10-06 10:18] LABS: RED BLOOD COUNT 2.7 10^6/uL (4.35-5.85); RETICULOCYTE % 0.66 % (0.50-2.40)
[2016-10-06] MEDS: VANCOMYCIN 1250 MG/NS 250 ML IVPB IV SCH ×2 (12:36)
[2016-10-06] MEDS ORDERED: NS IV 500 ML 500 ML ONE (13:50)
[2016-10-06] MEDS ORDERED: NS IV 500 ML 500 ML IV ONE (14:15)
--- NOTE | 2016-10-06 16:19 | Progress Note (SOAP) ---
Subjective Subjective/Events-last exam Patient sedated and intubated this AM. No new ON events Review of Systems Date Seen by Provider: Oct 06, 2016 Time Seen by Provider: 09:30 Objective Exam Last Set of Vital Signs Vital Signs Date Time Temp Pulse Resp B/P (MAP) Pulse Ox O2 Delivery O2 Flow Rate FiO2 10/06/16 15:43 163/55 10/06/16 15:00 70 26 96 Mechanical Ventilator 50.00 10/06/16 14:36 97.7 10/06/16 13:58 60 Capillary Refill : Less Than 3 Seconds I&O Intake and Output 10/06/16 00:00 Intake Total 5644.0 ml Output Total 1125 ml Balance 4519.0 ml Intake Oral 0 ml IV Total 4425.0 ml Tube Feeding 909 ml Other 310 ml Output Urine Total 1125 ml General: Other (Intubated and sedated) HEENT: PERRLA, Mucous Memb Moist/[place] Lungs: Other (Diffuse crackles, no wheezing, breathing over vent) Heart: Regular Rate, No Murmurs Abdomen: Normal Bowel Sounds, Soft, No Hepatosplenomegaly, No Masses Extremities: Other (3+ pitting edema in arm and legs) Skin: No Rashes Results/Procedures Lab Laboratory Tests 10/05/16 18:17: Glucometer 190H 10/05/16 22:59: Glucometer 170H 10/05/16 23:00: Vancomycin Level Trough 11.5 10/06/16 04:30: White Blood Count 11.3H, Red Blood Count 2.70L, Hemoglobin 7.5L, Hematocrit 24L , Mean Corpuscular Volume 89, Mean Corpuscular Hemoglobin 28, Mean Corpuscular Hemoglobin Concent 31L, Red Cell Distribution Width 14.8H, Platelet Count 197, Mean Platelet Volume 10.3, Neutrophils (%) (Auto) 81H, Lymphocytes (%) (Auto) 11L, Monocytes (%) (Auto) 7, Eosinophils (%) (Auto) 2, Basophils (%) (Auto) 0, Neutrophils # (Auto) 9.1H, Lymphocytes # (Auto) 1.2, Monocytes # (Auto) 0.8, Eosinophils # (Auto) 0.2, Basophils # (Auto) 0.0, Absolute Reticulocyte Count 18L, Percent Reticulocyte Count 0.66, Blood Gas Puncture Site r rad art, Blood Gas Patient Temperature 98.6, Arterial Blood pH 7.34*L, Arterial Blood Partial Pressure CO2 43, Arterial Blood Partial Pressure O2 75L, Arterial Blood HCO3 23 , Arterial Blood Total CO2 24.1, Arterial Blood Oxygen Saturation 96, Arterial Blood Base Excess -2.1, Afshin Test ART LINE, Blood Gas Ventilator Setting YES, Blood Gas Inspired Oxygen 60%, Sodium Level 143, Potassium Level 3.7, Chloride Level 117H, Carbon Dioxide Level 19L, Anion Gap 7, Blood Urea Nitrogen 14, Creatinine 0.59L, Estimat Glomerular Filtration Rate > 60, BUN/Creatinine Ratio 24, Glucose Level 153H, Calcium Level 7.4L, Phosphorus Level 3.0, Magnesium Level 1.6L 10/06/16 10:50: 10/06/16 12:29: Glucometer 204H Microbiology 10/01/16 Blood Culture - Final, Complete No growth 10/03/16 Mycobacterial Culture - Preliminary, Resulted Radiology Date of Exam:10/01/16 CHEST 1 VIEW, AP/PA ONLY INDICATION: Shortness of breath, COPD, asthma. COMPARISON STUDY: Chest from 07/08/2015. FINDINGS: Portable semiupright view of the chest demonstrates patchy infiltrates throughout the right lung and in the left base. Heart size is upper limits of normal. Vascularity is normal. There are no pleural effusions. IMPRESSION: There are bilateral pulmonary infiltrates. Assessment/Plan Assessment/Plan Admission Dx SEPTIC SHOCK COMMUNITY ACQUIRED PNEUMONIA ACUTE ON CHRONIC RESPIRATORY FAILURE DIABETES MELLITUS TYPE 2, NON INSULIN REQUIRING Plan SEPTIC SHOCK ADM: protocol initiated with fluid boluses, has received Levaquin (PCN allergy) . will monitor in ICU for now. Have consulted Dr Reid who told me he thinks intubation may be needed - as it has multiple times in dar past. BLood cultures pending. 10/02 - resolved. holding her BP. appears to have averted intubation. cultures still pending. COMMUNITY ACQUIRED PNEUMONIA ACUTE ON CHRONIC RESPIRATORY FAILURE, considered for ARDS ADM: On BiPAP now, will see how she does over the next few hours to see if intubation is required. Levaquin right now, cultures pending. IV steroids, MAT protocol. 10/02 - continue BiPAP. levaquin day 2; MAT protocol. pt is in fact not on steroids. cultures pending - sputum is haemophilus. 10/03 - B-lactamas Haemophilus. DC levaquin, start merrem. 10/04 - resp cx also grew yeast - diflucan started today. vanc also added due to another fever today. merrem day 2. vent to be managed by Dr Plaza with phone assistance from Dr Reid and also Alice. I will be available to come in over the weekend if necessary. 10/05 - pH 7.27 this AM, Dr Reid notified, repeat ABG in AM, Afebrile since yesterday AM, Continue Diflucan, Merropenum and Vanc 10/06- No changes in antiboitics today DIABETES MELLITUS TYPE 2, NON INSULIN REQUIRING ADM: SSI per ICU protocol for now. NPO due to BiPAP. 10/02 - no change, BS above goal, will monitor for another 24h, may need more aggressive regimen 10/03 - maintain ICU SSI 10/04 - improved, continue ICU SSI 10/05 - Blood sugars at goal, Continue ICU SSI ACUTE KIDNEY INJURY: Resolved ANEMIA, Normcytic 10/04 - 1 unit PRBCs today 10/06- 2 untis pRBCs given today for hgb of 7.8 Fluid Overload 10/06- Patient has gain over 10 kg since admission, likely fluid, Gave lasix 40 mg IV before and after blood was administered today, will watch fluid status closely DVT Proph: on SCDs, not lovenox GI proph: continue home regimen. DISPOSITION 10/04 - UR asking if patient is LTAC appropriate. we will see how she does this weekend and make a decision from there. no plans to extubate this weekend. 10/05 - Patient continues to need full mechanical ventilation Diagnosis/Problems: Clinical Quality Measures DVT/VTE Risk/Contraindication: Risk Factor Score Per Nursin RFS Level Per Nursing on Admit: 4+=Very High RICHIE PLAZA MD Oct 06, 2016 16:19
[2016-10-06 18:54] LABS: FERRITIN 400.6 ng/mL (15.0-150.0)
[2016-10-07] VITALS (33 sets, daily range): BP systolic 96–191; BP diastolic 40–153
[2016-10-07] MEDS: inSUlin (REGULAR) HUMAN 1 UNIT/0.01 ML (CHARGE PER UNIT) SC SCH ×4 (00:20→18:16)
[2016-10-07] MEDS: VANCOMYCIN 1250 MG/NS 250 ML IVPB IV SCH ×4 (00:20→14:14)
[2016-10-07] MEDS: MEROPENEM 500 MG in NS (IVPB) 100 ML IV SCH ×4 (00:21→18:16)
[2016-10-07] MEDS: RT-ALBUTEROL/IPRATROPIUM 3 ML (DUONEB) VIAL IH SCH ×6 (02:00→22:29)
[2016-10-07] MEDS: PROPOFOL DRIP (ICU) 100 ML IV SCH ×4 (02:12→14:26)
[2016-10-07 04:06] LABS: ABG BASE EXCESS 2.1 MMOL/L (-2.5-2.5); ABG HCO3 26 MMOL/L (23-27); ABG OXYGEN SATURATION 96 % (94-100); ABG PCO2 41 MMHG (35-45); ABG PH 7.43 (7.37-7.43); ABG PO2 78 MMHG (79-93); ABG TCO2 27.4 MMOL/L (21.0-31.0)
[2016-10-07 04:10] LABS: ALLENS TEST ART LINE; PATIENT TEMP 98.4
[2016-10-07 04:15] LABS: BASOPHILS % (AUTO) 0 % (0-10); EOSINOPHILS # (AUTO) 0.3 10^3/uL (0.0-0.3); EOSINOPHILS % (AUTO) 2 % (0-10); LYMPHOCYTES # (AUTO) 1.4 X 10^3 (1.0-4.0); LYMPHOCYTES % (AUTO) 11 % (12-44); MEAN CORPUSCULAR HEMOGLOBIN 28 PG (25-34); MEAN CORPUSCULAR HGB CONC 32 G/DL (32-36); MEAN CORPUSCULAR VOLUME 87 FL (80-99); MEAN PLATELET VOLUME 10.2 FL (7.4-10.4); MONOCYTES # (AUTO) 0.6 X 10^3 (0.0-1.0); MONOCYTES % (AUTO) 5 % (0-12); NEUTROPHILS # (AUTO) 10.2 X 10^3 (1.8-7.8); NEUTROPHILS % (AUTO) 82 % (42-75); PLATELET COUNT 242 10^3/uL (130-400); RED BLOOD COUNT 3.41 10^6/uL (4.35-5.85); RED CELL DISTRIBUTION WIDTH 15.1 % (10.0-14.5); WHITE BLOOD COUNT 12.5 10^3/uL (4.3-11.0)
[2016-10-07 04:34] LABS: ANION GAP 12 MMOL/L (5-14); BLOOD UREA NITROGEN 14 MG/DL (7-18); BUN/CREATININE RATIO 20; CALCIUM 8.3 MG/DL (8.5-10.1); CARBON DIOXIDE 22 MMOL/L (21-32); CHLORIDE 108 MMOL/L (98-107); CREATININE SERUM 0.69 MG/DL (0.60-1.30); GFR ESTIMATED > 60; GLUCOSE 204 MG/DL (70-105); MAGNESIUM 1.7 MG/DL (1.8-2.4); PHOSPHORUS 3.6 MG/DL (2.3-4.7); POTASSIUM 3.4 MMOL/L (3.6-5.0); SODIUM 142 MMOL/L (135-145)
[2016-10-07] MEDS: POTASSIUM CL 10MEQ/50ML IVPB 50 ML IV SCH ×6 (04:58→09:14)
[2016-10-07] MEDS: KCL 20 MEQ TAB (K-DUR) PO SCH (04:59)
[2016-10-07] MEDS: MAGNESIUM 1 GM/100 ML IVPB 100 ML IV SCH ×3 (04:59→06:30)
[2016-10-07] MEDS ORDERED: POTASSIUM CL 10MEQ/50ML IVPB 50 ML IV SCH (06:15)
[2016-10-07] MEDS ORDERED: FUROSEMIDE 40 MG/4 ML INJ (LASIX) IVP ONE (06:15)
--- NOTE | 2016-10-07 06:16 | Pulmonary Progress Note ---
Subjective Time Seen by Provider: 06:14 Subjective/Events-last exam Pt is still requiring 10 Peep and 50% Fi02. She is not ready for weaning yet. Exam Exam Vital Signs Date Time Temp Pulse Resp B/P (MAP) Pulse Ox O2 Delivery O2 Flow Rate FiO2 10/07/16 06:00 60 22 109/47 93 Mechanical Ventilator 50.00 103/54 10/07/16 05:40 60 10/07/16 05:00 60 29 122/50 95 Mechanical Ventilator 50.00 115/65 10/07/16 04:00 98.4 60 22 100/43 93 Mechanical Ventilator 50.00 102/54 10/07/16 04:00 Mechanical Ventilator 50 10/07/16 03:51 60 22 93 50 10/07/16 03:00 67 27 124/50 93 Mechanical Ventilator 50.00 133/64 10/07/16 02:12 73 10/07/16 02:00 59 27 109/44 93 Mechanical Ventilator 50.00 114/55 10/07/16 02:00 59 27 93 50 10/07/16 01:00 58 10/07/16 01:00 58 23 96/40 93 Mechanical Ventilator 50.00 104/55 10/07/16 00:11 58 22 93 50 10/07/16 00:00 58 23 108/44 94 Mechanical Ventilator 50.00 110/58 10/07/16 00:00 98.9 Mechanical Ventilator 50.00 10/07/16 00:00 Mechanical Ventilator 50 10/06/16 23:18 58 10/06/16 23:00 61 26 112/44 94 Mechanical Ventilator 50.00 116/58 10/06/16 22:00 57 24 112/48 93 Mechanical Ventilator 50.00 114/59 10/06/16 21:59 57 24 94 50 10/06/16 21:00 63 26 108/47 92 Mechanical Ventilator 50.00 111/55 10/06/16 20:43 68 24 93 50 10/06/16 20:30 98.6 67 20 130/51 98 Mechanical Ventilator 50 10/06/16 20:19 98.5 Mechanical Ventilator 50.00 10/06/16 20:03 69 10/06/16 20:00 Mechanical Ventilator 50 10/06/16 20:00 66 25 133/53 92 Mechanical Ventilator 50.00 137/72 10/06/16 19:06 64 29 92 50 10/06/16 19:00 68 31 140/62 91 Mechanical Ventilator 50.00 142/70 10/06/16 19:00 68 10/06/16 18:00 58 21 109/45 95 Mechanical Ventilator 50.00 108/52 10/06/16 17:57 97.8 57 109/45 10/06/16 17:42 97.7 58 110/46 10/06/16 17:07 97.8 60 110/47 10/06/16 17:05 97.8 10/06/16 17:00 59 23 111/47 95 Mechanical Ventilator 50.00 114/56 10/06/16 16:31 61 23 96 50 10/06/16 16:00 67 26 124/48 96 Mechanical Ventilator 50.00 123/59 10/06/16 16:00 Mechanical Ventilator 60 10/06/16 15:43 163/55 10/06/16 15:00 70 26 131/20 96 Mechanical Ventilator 50.00 127/58 10/06/16 14:40 98.0 72 133/51 10/06/16 14:36 97.7 70 130/51 10/06/16 14:26 99.4 72 127/47 10/06/16 14:00 61 24 103/43 100 Mechanical Ventilator 50.00 108/62 10/06/16 13:58 61 22 100 60 10/06/16 13:00 71 25 108/43 99 Mechanical Ventilator 60.00 114/64 10/06/16 13:00 71 10/06/16 12:44 98.0 10/06/16 12:00 82 26 125/49 97 Mechanical Ventilator 60.00 128/57 10/06/16 12:00 Mechanical Ventilator 60 10/06/16 11:53 84 20 98 60 10/06/16 11:13 127/54 10/06/16 11:00 67 27 128/53 97 Mechanical Ventilator 60.00 127/54 10/06/16 10:19 61 25 95 60 10/06/16 10:00 58 24 113/47 100 Mechanical Ventilator 60.00 95/64 10/06/16 09:00 60 20 109/46 99 Mechanical Ventilator 60.00 111/59 10/06/16 08:12 98.0 65 24 117/46 99 Mechanical Ventilator 60.00 117/55 10/06/16 08:05 67 23 98 60 10/06/16 08:00 Mechanical Ventilator 60 10/06/16 07:00 79 10/06/16 07:00 79 23 131/48 99 Mechanical Ventilator 60.00 125/62 10/06/16 06:39 60 27 98 60 I & O 10/07/16 07:00 Intake Total 4248.0 ml Output Total 3900 ml Balance 348.0 ml General Appearance: WD/WN, Moderate Distress HEENT: PERRL/EOMI, TMs Normal, Normal ENT Inspection, Pharynx Normal Neck: Normal Inspection Respiratory: No Accessory Muscle Use, No Respiratory Distress, Wheezing, Other (Delayed forced expiratory phase, barking cough) Cardiovascular: Regular Rate, Rhythm, No Murmur, Other (Mild lower extremity edema) Capillary Refill: Less Than 3 Seconds Gastrointestinal: normal bowel sounds, non tender, soft, no organomegaly Extremity: Pedal Edema (Mild lower extremity edema equal bilaterally) Neurologic/Psychiatric: Alert, Oriented x3, No Motor/Sensory Deficits, Normal 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, 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 Norm as Tested Skin: Normal Color, Warm/Dry Results Lab Laboratory Tests 10/06/16 04:30 10/07/16 03:50 Assessment/Plan Assessment/Plan --Acute on Chronic respiratory failure -worsening - Vanco, Merrem Diflucan -Diprivan gtt, and fentanyl -TF with pulmicare - Continuous CVP monitoring CVP is around 5 -Pneumonia with respiratory failure with ARDS Pa02/Fi02 = 156 -Increase PEEP to [id number], -continue vent AC 20/450/10 -Continue SVNs, Abx -Hines cultures -Add Solumedrol 40mg IV daily Hypokalemia, hypomagnesium -replace -Obesity Hx of vocal cord paralysis Poor IV Access 233 Clinical Quality Measures DVT/VTE Risk/Contraindication: Risk Factor Score Per Nursin RFS Level Per Nursing on Admit: 4+=Very High MILE SUMMERS DO Oct 07, 2016 06:16
[2016-10-07] MEDS: FLUCONAZOLE 100 MG/50 ML 50 ML IV SCH (08:06)
[2016-10-07] MEDS: ARTIFICAL TEARS 0.4 ML UNIT DOSE (REFRESH PLUS) OU SCH ×2 (08:06→20:01)
[2016-10-07] MEDS: PANTOPRAZOLE 40 MG/10 ML (PROTONIX) VIAL IV SCH ×2 (08:06→20:01)
--- NOTE | 2016-10-07 08:41 | Diagnostic Imaging Report ---
INDICATION: Dyspnea 0440 hours Since the examination of one day earlier, there is persistent diffuse airspace disease in both lungs. No pneumothorax is identified. Endotracheal tube is in place with tip at the level of the thoracic inlet. Nasogastric tube passes below the diaphragm. IMPRESSION: Extensive bilateral airspace disease which may be due to edema. Superimposed pneumonia or developing ARDS is not excluded. Dictated by: Dictated on workstation # [id number]
[2016-10-07] MEDS ORDERED: TROUGH ORDER-PHARMACY XX ONE (11:00)
[2016-10-07] MEDS ORDERED: ANIDULAFUNGIN 200 MG/NS 250 ML IVPB IV ONE ×2 (11:00)
[2016-10-07] MEDS: DEXMEDETOMIDINE INJECTION 200 MCG in NS (IVPB) 50 ML IV SCH ×9 (11:41→22:59)
[2016-10-07] MEDS: methylPREDNISolone 40 MG/ML (Solu-MEDROL) VIAL IV SCH ×2 (11:41→18:15)
[2016-10-07] MEDS: BISACODYL 10 MG SUPP (DULCOLAX) PR PRN (12:30)
[2016-10-07] MEDS: MILK OF MAGNESIA 400 MG/5 ML 30 ML UDC PO PRN (14:14)
[2016-10-07] MEDS: fentaNYL INJECTION 1,250 MCG in NS (IVPB) 225 ML IV SCH (14:44)
[2016-10-07] MEDS ORDERED: NS (IVPB) 100 ML ONE (16:20)
[2016-10-07] MEDS ORDERED: MIDAZOLAM FOR DRIPS 10 MG/2 ML VIAL ONE (16:20)
[2016-10-07] MEDS: MIDAZOLAM INJECTION FOR DRIPS 50 MG in NS (IVPB) 90 ML IV SCH (16:36)
[2016-10-07] MEDS ORDERED: FUROSEMIDE 40 MG/4 ML INJ (LASIX) IVP NR (17:45)
[2016-10-07] MEDS: amLODIPine 5 MG (NORVASC) TAB PO SCH (18:16)
--- NOTE | 2016-10-07 18:20 | Progress Note (SOAP) ---
Subjective Subjective/Events-last exam Patient remains sedated and intubated. ON blood pressures have started to increase. Review of Systems Date Seen by Provider: Oct 07, 2016 Time Seen by Provider: 10:20 Objective Exam Last Set of Vital Signs Vital Signs Date Time Temp Pulse Resp B/P (MAP) Pulse Ox O2 Delivery O2 Flow Rate FiO2 10/07/16 16:36 163/80 10/07/16 16:00 100.3 Mechanical Ventilator 45.00 10/07/16 16:00 50 10/07/16 15:21 58 26 97 Capillary Refill : Less Than 3 Seconds I&O Intake and Output 10/07/16 00:00 Intake Total 5778.0 ml Output Total 3125 ml Balance 2653.0 ml Intake Oral 0 ml IV Total 3335.0 ml Tube Feeding 1758 ml Other 685 ml Output Urine Total 3125 ml General: Other (sedated and intubated) HEENT: PERRLA Lungs: Other (diffuse crackles) Heart: Regular Rate, No Murmurs Abdomen: Soft Extremities: Other (3+ pitting edema in UE and LE bilaterally) Results/Procedures Lab Laboratory Tests 10/06/16 18:54: Glucometer 200H 10/07/16 00:12: Glucometer 208H 10/07/16 03:50: White Blood Count 12.5H, Red Blood Count 3.41L, Hemoglobin 9.5#L, Hematocrit 30L , Mean Corpuscular Volume 87, Mean Corpuscular Hemoglobin 28, Mean Corpuscular Hemoglobin Concent 32, Red Cell Distribution Width 15.1H, Platelet Count 242, Mean Platelet Volume 10.2, Neutrophils (%) (Auto) 82H, Lymphocytes (%) (Auto) 11L, Monocytes (%) (Auto) 5, Eosinophils (%) (Auto) 2, Basophils (%) (Auto) 0, Neutrophils # (Auto) 10.2H, Lymphocytes # (Auto) 1.4, Monocytes # (Auto) 0.6, Eosinophils # (Auto) 0.3, Basophils # (Auto) 0.0, Blood Gas Puncture Site R RAD ART, Blood Gas Patient Temperature 98.4, Arterial Blood pH 7.43, Arterial Blood Partial Pressure CO2 41, Arterial Blood Partial Pressure O2 78L, Arterial Blood HCO3 26, Arterial Blood Total CO2 27.4, Arterial Blood Oxygen Saturation 96, Arterial Blood Base Excess 2.1, Afshin Test ART LINE, Blood Gas Ventilator Setting YES, Blood Gas Inspired Oxygen 50%, Sodium Level 142, Potassium Level 3.4L, Chloride Level 108H, Carbon Dioxide Level 22, Anion Gap 12, Blood Urea Nitrogen 14, Creatinine 0.69, Estimat Glomerular Filtration Rate > 60, BUN/ Creatinine Ratio 20, Glucose Level 204H, Calcium Level 8.3L, Phosphorus Level 3.6, Magnesium Level 1.7L 10/07/16 11:15: Glucometer 199H 10/07/16 12:04: Vancomycin Level Trough 12.3 10/07/16 12:41: Lab Scanned Report Transfusion Reaction Form Microbiology 10/01/16 Blood Culture - Final, Complete No growth 10/03/16 Mycobacterial Culture - Preliminary, Resulted Radiology Date of Exam:10/01/16 CHEST 1 VIEW, AP/PA ONLY INDICATION: Shortness of breath, COPD, asthma. COMPARISON STUDY: Chest from 07/08/2015. FINDINGS: Portable semiupright view of the chest demonstrates patchy infiltrates throughout the right lung and in the left base. Heart size is upper limits of normal. Vascularity is normal. There are no pleural effusions. IMPRESSION: There are bilateral pulmonary infiltrates. Assessment/Plan Assessment/Plan Admission Dx SEPTIC SHOCK COMMUNITY ACQUIRED PNEUMONIA ACUTE ON CHRONIC RESPIRATORY FAILURE DIABETES MELLITUS TYPE 2, NON INSULIN REQUIRING Plan SEPTIC SHOCK ADM: protocol initiated with fluid boluses, has received Levaquin (PCN allergy) . will monitor in ICU for now. Have consulted Dr Reid who told me he thinks intubation may be needed - as it has multiple times in dar past. BLood cultures pending. 10/02 - resolved. holding her BP. appears to have averted intubation. cultures still pending. COMMUNITY ACQUIRED PNEUMONIA ACUTE ON CHRONIC RESPIRATORY FAILURE, considered for ARDS ADM: On BiPAP now, will see how she does over the next few hours to see if intubation is required. Levaquin right now, cultures pending. IV steroids, MAT protocol. 10/02 - continue BiPAP. levaquin day 2; MAT protocol. pt is in fact not on steroids. cultures pending - sputum is haemophilus. 10/03 - B-lactamas Haemophilus. DC levaquin, start merrem. 10/04 - resp cx also grew yeast - diflucan started today. vanc also added due to another fever today. merrem day 2. vent to be managed by Dr Plaza with phone assistance from Dr Reid and also eICU. I will be available to come in over the weekend if necessary. 10/05 - pH 7.27 this AM, Dr Reid notified, repeat ABG in AM, Afebrile since yesterday AM, Continue Diflucan, Merropenum and Vanc 10/06- No changes in antiboitics today HTN 10/07 - Started Norvasc per tube, will continue to monitor blood pressures, if they remain elevated will restart Lisinopril DIABETES MELLITUS TYPE 2, NON INSULIN REQUIRING ADM: SSI per ICU protocol for now. NPO due to BiPAP. 10/02 - no change, BS above goal, will monitor for another 24h, may need more aggressive regimen 10/03 - maintain ICU SSI 10/04 - improved, continue ICU SSI 10/05 - Blood sugars at goal, Continue ICU SSI ACUTE KIDNEY INJURY: Resolved ANEMIA, Normcytic 10/04 - 1 unit PRBCs today 10/06- 2 untis pRBCs given today for hgb of 7.8 Fluid Overload 10/06- Patient has gain over 10 kg since admission, likely fluid, Gave lasix 40 mg IV before and after blood was administered today, will watch fluid status closely 10/07 - Lasix 40 mg giving today for fluid overload DVT Proph: on SCDs, not lovenox GI proph: continue home regimen. DISPOSITION 10/04 - UR asking if patient is LTAC appropriate. we will see how she does this weekend and make a decision from there. no plans to extubate this weekend. 10/05 - Patient continues to need full mechanical ventilation Diagnosis/Problems: Clinical Quality Measures DVT/VTE Risk/Contraindication: Risk Factor Score Per Nursin RFS Level Per Nursing on Admit: 4+=Very High RICHIE PLAZA MD Oct 07, 2016 18:20
[2016-10-07] MEDS ORDERED: MIDAZOLAM 2 MG/2 ML (VERSED) VIAL ONE (20:03)
[2016-10-08] VITALS (34 sets, daily range): BP systolic 121–200; BP diastolic 53–123
[2016-10-08] MEDS ORDERED: MIDAZOLAM 2 MG/2 ML (VERSED) VIAL IVP PRN
[2016-10-08] MEDS: VANCOMYCIN 1250 MG/NS 250 ML IVPB IV SCH ×4 (00:28→13:06)
[2016-10-08] MEDS: MEROPENEM 500 MG in NS (IVPB) 100 ML IV SCH ×4 (00:28→17:27)
[2016-10-08] MEDS: DEXMEDETOMIDINE INJECTION 200 MCG in NS (IVPB) 50 ML IV SCH ×5 (00:28→05:48)
[2016-10-08] MEDS: inSUlin (REGULAR) HUMAN 1 UNIT/0.01 ML (CHARGE PER UNIT) SC SCH ×5 (00:31→18:00)
[2016-10-08] MEDS: methylPREDNISolone 40 MG/ML (Solu-MEDROL) VIAL IV SCH ×4 (00:31→17:27)
[2016-10-08] MEDS ORDERED: FLEET ENEMA ADULT 1 EA BTL PR ONE (00:45)
[2016-10-08] MEDS: RT-ALBUTEROL/IPRATROPIUM 3 ML (DUONEB) VIAL IH SCH ×6 (02:44→22:10)
[2016-10-08 04:25] LABS: ABG HCO3 28 MMOL/L (23-27); ABG OXYGEN SATURATION 99 % (94-100); ABG PCO2 40 MMHG (35-45); ABG PH 7.46 (7.37-7.43); ABG PO2 109 MMHG (79-93); ABG TCO2 28.9 MMOL/L (21.0-31.0); ALLENS TEST ART LINE; BASOPHILS % (AUTO) 0 % (0-10); EOSINOPHILS % (AUTO) 0 % (0-10); LYMPHOCYTES # (AUTO) 0.9 X 10^3 (1.0-4.0); LYMPHOCYTES % (AUTO) 7 % (12-44); MEAN CORPUSCULAR HEMOGLOBIN 28 PG (25-34); MEAN CORPUSCULAR HGB CONC 33 G/DL (32-36); MEAN CORPUSCULAR VOLUME 86 FL (80-99); MEAN PLATELET VOLUME 10.1 FL (7.4-10.4); MONOCYTES # (AUTO) 0.3 X 10^3 (0.0-1.0); MONOCYTES % (AUTO) 2 % (0-12); NEUTROPHILS # (AUTO) 12.1 X 10^3 (1.8-7.8); NEUTROPHILS % (AUTO) 90 % (42-75); PATIENT TEMP 99.9; PLATELET COUNT 270 10^3/uL (130-400); RED BLOOD COUNT 3.97 10^6/uL (4.35-5.85); RED CELL DISTRIBUTION WIDTH 14.6 % (10.0-14.5); WHITE BLOOD COUNT 13.5 10^3/uL (4.3-11.0)
[2016-10-08] MEDS: fentaNYL INJECTION 1,250 MCG in NS (IVPB) 225 ML IV SCH ×2 (04:27→13:08)
[2016-10-08] MEDS ORDERED: fentaNYL INJECTION 100 MCG/2 ML AMP ONE (04:32)
[2016-10-08 04:44] LABS: ANION GAP 14 MMOL/L (5-14); BLOOD UREA NITROGEN 21 MG/DL (7-18); BUN/CREATININE RATIO 29; CALCIUM 8.8 MG/DL (8.5-10.1); CARBON DIOXIDE 25 MMOL/L (21-32); CHLORIDE 106 MMOL/L (98-107); CREATININE SERUM 0.72 MG/DL (0.60-1.30); GFR ESTIMATED > 60; GLUCOSE 327 MG/DL (70-105); POTASSIUM 3.4 MMOL/L (3.6-5.0); SODIUM 145 MMOL/L (135-145)
[2016-10-08] MEDS: KCL 20 MEQ TAB (K-DUR) PO SCH (04:47)
[2016-10-08] MEDS: POTASSIUM CL 10MEQ/50ML IVPB 50 ML IV SCH ×8 (04:47→11:14)
[2016-10-08] MEDS: MAGNESIUM 1 GM/100 ML IVPB 100 ML IV SCH (04:47)
[2016-10-08 05:12] LABS: BAND NEUTROPHILS 14 %; BASOPHILS % (MANUAL) 1 %; LYMPHOCYTES % (MANUAL) 7 %; METAMYELOCYTES % 1 %; NEUTROPHILS % (MANUAL) 75 %
[2016-10-08 05:13] LABS: POLYCHROMASIA SLIGHT
[2016-10-08] MEDS ORDERED: fentaNYL INJECTION 100 MCG/2 ML AMP IV ONE (06:15)
--- NOTE | 2016-10-08 06:46 | Pulmonary Progress Note ---
Subjective Time Seen by Provider: 06:45 Subjective/Events-last exam Pt has been very agitated since d/cing Chet[place]. Pt is also having gastric distention and not tolerating TF. Exam Exam Vital Signs Date Time Temp Pulse Resp B/P (MAP) Pulse Ox O2 Delivery O2 Flow Rate FiO2 10/08/16 06:22 74 20 94 45 10/08/16 06:00 75 21 168/77 94 Mechanical Ventilator 45.00 10/08/16 05:00 79 21 168/79 95 Mechanical Ventilator 45.00 10/08/16 04:56 79 22 95 50 10/08/16 04:50 99.9 10/08/16 04:00 Mechanical Ventilator 45 10/08/16 04:00 89 19 180/102 Mechanical Ventilator 45.00 10/08/16 03:00 82 18 175/77 Mechanical Ventilator 45.00 10/08/16 02:45 80 28 95 45 10/08/16 02:00 80 17 160/77 Mechanical Ventilator 45.00 10/08/16 01:00 78 10/08/16 01:00 75 21 165/78 Mechanical Ventilator 45.00 10/08/16 00:00 Mechanical Ventilator 45 10/08/16 00:00 83 43 165/78 95 Mechanical Ventilator 45.00 10/08/16 00:00 98.5 10/07/16 23:00 89 22 167/74 94 Mechanical Ventilator 45.00 10/07/16 22:29 78 25 94 45 10/07/16 22:00 66 174/88 94 Mechanical Ventilator 45.00 10/07/16 21:00 66 21 180/85 95 Mechanical Ventilator 45.00 10/07/16 20:54 67 22 95 50 10/07/16 20:00 68 26 180/81 96 Mechanical Ventilator 45.00 10/07/16 20:00 Mechanical Ventilator 45 10/07/16 19:42 98.5 Mechanical Ventilator 45.00 10/07/16 19:00 68 26 95 Mechanical Ventilator 45.00 170/79 10/07/16 19:00 68 10/07/16 18:59 66 23 95 45 10/07/16 18:00 100.3 71 24 190/79 96 Mechanical Ventilator 45.00 182/83 10/07/16 17:00 100.3 74 23 188/77 94 Mechanical Ventilator 45.00 181/87 10/07/16 16:36 163/80 10/07/16 16:00 100.3 Mechanical Ventilator 45.00 10/07/16 16:00 100.3 75 30 173/77 96 Mechanical Ventilator 45.00 183/87 10/07/16 16:00 Mechanical Ventilator 50 10/07/16 15:21 58 26 97 50 10/07/16 15:00 62 23 180/73 97 Mechanical Ventilator 50.00 178/82 10/07/16 14:26 170/74 10/07/16 14:00 58 23 161/83 96 Mechanical Ventilator 50.00 163/80 10/07/16 13:00 76 10/07/16 13:00 63 25 163/86 96 Mechanical Ventilator 50.00 155/77 10/07/16 12:15 72 32 96 50 10/07/16 12:05 Mechanical Ventilator 50 10/07/16 12:05 99.3 Mechanical Ventilator 50.00 10/07/16 11:00 62 27 121/46 94 Mechanical Ventilator 50.00 115/60 10/07/16 10:49 58 24 95 50 10/07/16 10:00 57 25 113/48 95 Mechanical Ventilator 50.00 114/61 10/07/16 09:14 130/51 10/07/16 09:00 61 26 126/51 96 Mechanical Ventilator 50.00 121/69 10/07/16 08:25 Mechanical Ventilator 50 10/07/16 08:25 72 26 95 50 10/07/16 08:23 99.1 Mechanical Ventilator 50.00 10/07/16 08:00 64 24 109/46 94 Mechanical Ventilator 50.00 107/56 10/07/16 07:10 61 26 95 50 10/07/16 07:00 59 24 127/53 95 Mechanical Ventilator 50.00 109/54 10/07/16 07:00 63 I & O 10/08/16 07:00 Intake Total 2736.5 ml Output Total 6375 ml Balance -3638.5 ml General Appearance: WD/WN, Moderate Distress HEENT: PERRL/EOMI, TMs Normal, Normal ENT Inspection, Pharynx Normal Neck: Normal Inspection Respiratory: No Accessory Muscle Use, No Respiratory Distress, Wheezing, Other (Delayed forced expiratory phase, barking cough) Cardiovascular: Regular Rate, Rhythm, No Murmur, Other (Mild lower extremity edema) Capillary Refill: Less Than 3 Seconds Gastrointestinal: non tender, soft, no organomegaly, abnormal bowel sounds, distended Extremity: Pedal Edema (Mild lower extremity edema equal bilaterally) Neurologic/Psychiatric: Alert, Oriented x3, No Motor/Sensory Deficits, Normal 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 -Current sedation is Precedex, fentanyl, versed, and Haldol 5mg BID -wean versed to D/C -Wean Fentanyl to <25mcg/hr -Use Diprivan at night -TF with pulmicare - hold for 2hrs if residual >250 - Continuous CVP monitoring CVP -Pneumonia with respiratory failure with ARDS Pa02/Fi02 = 242 - improving -decrease PEEP to 8cmh20, -continue vent AC 20/450/8 -Continue SVNs, Abx -Hines cultures reviewed -Solumedrol 40mg IV Q6 Ileus -Start Reglan 10mg IV daily -Start lactulose -check KUB Hyperglycemia -start Levemir 7units BID -Continue SSI Hypokalemia -replace Hypertension -add lopressor, norvasc, PRN hydralazine for SBP >160 -Obesity Hx of vocal cord paralysis 120min spent with patient and medical staff. I discussed with nursing, and pharmacy regarding sedation, HTN, ileus and plan of care. Clinical Quality Measures DVT/VTE Risk/Contraindication: Risk Factor Score Per Nursin RFS Level Per Nursing on Admit: 4+=Very High MILE SUMMERS DO Oct 08, 2016 06:46
[2016-10-08] MEDS ORDERED: LACTATED RINGERS 1,000 ML IV SCH (07:30)
[2016-10-08] MEDS: DEXMEDETOMIDINE INJECTION 400 MCG in NS (IVPB) 100 ML IV SCH ×7 (07:38→22:31)
[2016-10-08] MEDS: HALOPERIDOL 5 MG/ML (HALDOL) AMP IV SCH ×2 (07:38→21:08)
[2016-10-08] MEDS: hydrALAZINE (APESOLINE) 20 MG/ML VIAL IV PRN ×3 (07:39→21:08)
--- NOTE | 2016-10-08 08:41 | Diagnostic Imaging Report ---
Supine view of the abdomen. INDICATION: Abdominal distention. FINDINGS: There is moderate amounts of fecal material in the rectosigmoid area. There is a nonspecific mild gaseous distention in the colon. No significantly dilated small bowel loops are suggested. Constipation in the right side of the pelvis is likely a phlebolith. Surgical clips in the right upper abdomen seen. IMPRESSION: Moderate amount of fecal material in the rectosigmoid area. Nonspecific mild gaseous distention of the proximal colon. Dictated by: Dictated on workstation # [id number]
--- NOTE | 2016-10-08 08:47 | Diagnostic Imaging Report ---
INDICATION: Dyspnea. COMPARISON: 10/07/2016. FINDINGS: Single frontal radiographic view of the chest was obtained and demonstrates indwelling endotracheal tube with tip at the clavicular heads. Enteric tube tip terminates within the stomach. Right internal jugular central venous catheter tip is also noted and is in stable position. Lungs continue show diffuse interstitial opacities with scattered and confluent areas of more consolidative alveolar opacification. Overall, aeration has improved, particularly within the right upper lung field. There is no large effusion or pneumothorax. Cardiac silhouette is mostly obscured, but appears stable. IMPRESSION: 1. Persistent diffuse mixed interstitial and alveolar infiltrates, but with some overall improved aeration. Continued followup is recommended. 2. Lines and tubes as above. Dictated by: Dictated on workstation # [id number]
[2016-10-08] MEDS ORDERED: METOCLOPRAMIDE 10 MG (REGLAN) TAB PO ONE (09:00)
[2016-10-08] MEDS: amLODIPine 5 MG (NORVASC) TAB PO SCH (09:11)
[2016-10-08] MEDS: LACTULOSE SYRUP 10GM/15ML (ENULOSE) 30ML UDC PO SCH ×2 (09:11→21:09)
[2016-10-08] MEDS: MILK OF MAGNESIA 400 MG/5 ML 30 ML UDC PO PRN (09:11)
[2016-10-08] MEDS: PANTOPRAZOLE 40 MG/10 ML (PROTONIX) VIAL IV SCH ×2 (09:11→21:08)
[2016-10-08] MEDS: meTOprolol TARTRATE 25 MG (LOPRESSOR) TABLET PO SCH ×2 (09:11→21:09)
[2016-10-08] MEDS: inSUlin DETERMIR 1 UNIT/0.01 ML (LEVEMIR) CHARGE PER UNIT SQ SCH ×2 (09:12→21:09)
[2016-10-08] MEDS: METOCLOPRAMIDE INJ 10 MG/2 ML (REGLAN) IVP SCH (09:12)
[2016-10-08] MEDS: MINERAL OIL CONCENTRATE 99.9% 15 ML UDC PO PRN ×2 (09:14→21:09)
[2016-10-08] MEDS: ANIDULAFUNGIN INJECTION 100 MG in NS (IVPB) 100 ML IV SCH (11:38)
[2016-10-08] MEDS: ARTIFICAL TEARS 0.4 ML UNIT DOSE (REFRESH PLUS) OU SCH ×2 (13:12→21:09)
[2016-10-08] MEDS: morphine INJ 4 MG/ML 1 ML (VIAL/SYRINGE) IVP PRN (13:19)
[2016-10-08] MEDS: HALOPERIDOL 5 MG/ML (HALDOL) AMP IV PRN (13:42)
[2016-10-08] MEDS: MIDAZOLAM INJECTION FOR DRIPS 50 MG in NS (IVPB) 90 ML IV SCH (17:27)
[2016-10-08] MEDS: BISACODYL 10 MG SUPP (DULCOLAX) PR PRN (17:59)
--- NOTE | 2016-10-08 19:12 | Progress Note (SOAP) ---
Subjective Subjective/Events-last exam Patient followed simple commands this AM. Opens eyes upon using her name. Seems to be agitated. Remains intubated. Review of Systems Date Seen by Provider: Oct 08, 2016 Time Seen by Provider: 09:10 Objective Exam Last Set of Vital Signs Vital Signs Date Time Temp Pulse Resp B/P (MAP) Pulse Ox O2 Delivery O2 Flow Rate FiO2 10/08/16 18:26 77 23 94 45 10/08/16 18:00 184/77 Mechanical Ventilator 45.00 10/08/16 08:00 99.2 Capillary Refill : Less Than 3 Seconds I&O Intake and Output 10/08/16 00:00 Intake Total 3167.0 ml Output Total 5725 ml Balance -2558.0 ml Intake Oral 0 ml IV Total 1741.0 ml Tube Feeding 926 ml Other 500 ml Output Urine Total 5725 ml General: Other (Intubated, awake today) HEENT: PERRLA, Mucous Memb Moist/[place] Lungs: Other (Diffuse crackles, better air movement ) Heart: Regular Rate, No Murmurs Abdomen: Normal Bowel Sounds, Soft, Other (distended) Extremities: Other (2+ pitting edema LE and 3+ pitting edema UE bilaterally) Skin: No Rashes, No Breakdown Neuro: Other (Follows simple commands and opens eyes) Results/Procedures Lab Laboratory Tests 10/08/16 00:22: Glucometer 357H 10/08/16 04:10: White Blood Count 13.5H, Red Blood Count 3.97L, Hemoglobin 11.1L, Hematocrit 34L , Mean Corpuscular Volume 86, Mean Corpuscular Hemoglobin 28, Mean Corpuscular Hemoglobin Concent 33, Red Cell Distribution Width 14.6H, Platelet Count 270, Mean Platelet Volume 10.1, Neutrophils (%) (Auto) 90H, Lymphocytes (%) (Auto) 7L , Monocytes (%) (Auto) 2, Eosinophils (%) (Auto) 0, Basophils (%) (Auto) 0, Neutrophils # (Auto) 12.1H, Lymphocytes # (Auto) 0.9L, Monocytes # (Auto) 0.3, Eosinophils # (Auto) 0.0, Basophils # (Auto) 0.0, Neutrophils % (Manual) 75, Lymphocytes % (Manual) 7, Monocytes % (Manual) 2, Basophils % (Manual) 1, Metamyelocytes % 1, Band Neutrophils 14, Nucleated Red Blood Cells 1, Polychromasia SLIGHT, Blood Gas Puncture Site ARTLINE, Blood Gas Patient Temperature 99.9, Arterial Blood pH 7.46H, Arterial Blood Partial Pressure CO2 40, Arterial Blood Partial Pressure O2 109H, Arterial Blood HCO3 28H, Arterial Blood Total CO2 28.9, Arterial Blood Oxygen Saturation 99, Arterial Blood Base Excess 4.0H, Afshin Test ART LINE, Blood Gas Ventilator Setting YES, Blood Gas Inspired Oxygen 45%, Sodium Level 145, Potassium Level 3.4L, Chloride Level 106 , Carbon Dioxide Level 25, Anion Gap 14, Blood Urea Nitrogen 21H, Creatinine 0.72, Estimat Glomerular Filtration Rate > 60, BUN/Creatinine Ratio 29, Glucose Level 327H, Calcium Level 8.8, Phosphorus Level 5.0H, Magnesium Level 2.0 10/08/16 11:33: Glucometer 240H Microbiology 10/01/16 Blood Culture - Final, Complete No growth 10/03/16 Mycobacterial Culture - Preliminary, Resulted Radiology Date of Exam:10/01/16 CHEST 1 VIEW, AP/PA ONLY INDICATION: Shortness of breath, COPD, asthma. COMPARISON STUDY: Chest from 07/08/2015. FINDINGS: Portable semiupright view of the chest demonstrates patchy infiltrates throughout the right lung and in the left base. Heart size is upper limits of normal. Vascularity is normal. There are no pleural effusions. IMPRESSION: There are bilateral pulmonary infiltrates. Assessment/Plan Assessment/Plan Admission Dx SEPTIC SHOCK COMMUNITY ACQUIRED PNEUMONIA ACUTE ON CHRONIC RESPIRATORY FAILURE DIABETES MELLITUS TYPE 2, NON INSULIN REQUIRING Plan SEPTIC SHOCK ADM: protocol initiated with fluid boluses, has received Levaquin (PCN allergy) . will monitor in ICU for now. Have consulted Dr Reid who told me he thinks intubation may be needed - as it has multiple times in dar past. BLood cultures pending. 10/02 - resolved. holding her BP. appears to have averted intubation. cultures still pending. COMMUNITY ACQUIRED PNEUMONIA ACUTE ON CHRONIC RESPIRATORY FAILURE, considered for ARDS ADM: On BiPAP now, will see how she does over the next few hours to see if intubation is required. Levaquin right now, cultures pending. IV steroids, MAT protocol. 10/02 - continue BiPAP. levaquin day 2; MAT protocol. pt is in fact not on steroids. cultures pending - sputum is haemophilus. 10/03 - B-lactamas Haemophilus. DC levaquin, start merrem. 10/04 - resp cx also grew yeast - diflucan started today. vanc also added due to another fever today. merrem day 2. vent to be managed by Dr Plaza with phone assistance from Dr Reid and also [place]. I will be available to come in over the weekend if necessary. 10/05 - pH 7.27 this AM, Dr Reid notified, repeat ABG in AM, Afebrile since yesterday AM, Continue Diflucan, Merropenum and Vanc 10/06- No changes in antiboitics today 10/08 - Remains intubated but seems to be moving air better, minimal change in CXR HTN 10/07 - Started Norvasc per tube, will continue to monitor blood pressures, if they remain elevated will restart Lisinopril 10/08 - Restart lisinopril and schedule lasix x 4 doses to control fluid overload DIABETES MELLITUS TYPE 2, NON INSULIN REQUIRING ADM: SSI per ICU protocol for now. NPO due to BiPAP. 10/02 - no change, BS above goal, will monitor for another 24h, may need more aggressive regimen 10/03 - maintain ICU SSI 10/04 - improved, continue ICU SSI 10/05 - Blood sugars at goal, Continue ICU SSI ACUTE KIDNEY INJURY: Resolved ANEMIA, Normcytic 10/04 - 1 unit PRBCs today 10/06- 2 untis pRBCs given today for hgb of 7.8 10/08 - Hgb improved and stable, will continue to monitor and give iron when ok with Dr Reid Fluid Overload 10/06- Patient has gain over 10 kg since admission, likely fluid, Gave lasix 40 mg IV before and after blood was administered today, will watch fluid status closely 10/07 - Lasix 40 mg giving today for fluid overload 10/08 - Scheduled lasix 40 BID x 4 doses DVT Proph: on SCDs, not lovenox GI proph: continue home regimen. DISPOSITION 10/04 - UR asking if patient is LTAC appropriate. we will see how she does this weekend and make a decision from there. no plans to extubate this weekend. 10/05 - Patient continues to need full mechanical ventilation Diagnosis/Problems: Clinical Quality Measures DVT/VTE Risk/Contraindication: Risk Factor Score Per Nursin RFS Level Per Nursing on Admit: 4+=Very High RICHIE PLAZA MD Oct 08, 2016 19:12
[2016-10-08] MEDS ORDERED: FUROSEMIDE 40 MG/4 ML INJ (LASIX) IVP SCH (21:00)
[2016-10-08] MEDS: lisINopril 10 MG (PRINIVIL) TAB PO SCH (21:11)
[2016-10-09] VITALS (34 sets, daily range): BP systolic 106–193; BP diastolic 46–90
[2016-10-09] MEDS: morphine INJ 4 MG/ML 1 ML (VIAL/SYRINGE) IVP PRN ×3 (00:13→18:26)
[2016-10-09] MEDS: HALOPERIDOL 5 MG/ML (HALDOL) AMP IV PRN ×2 (00:13→16:44)
[2016-10-09] MEDS: MEROPENEM 500 MG in NS (IVPB) 100 ML IV SCH ×5 (00:24→23:49)
[2016-10-09] MEDS: inSUlin (REGULAR) HUMAN 1 UNIT/0.01 ML (CHARGE PER UNIT) SC SCH ×5 (00:24→23:52)
[2016-10-09] MEDS: methylPREDNISolone 40 MG/ML (Solu-MEDROL) VIAL IV SCH ×5 (00:24→23:49)
[2016-10-09] MEDS: DEXMEDETOMIDINE INJECTION 400 MCG in NS (IVPB) 100 ML IV SCH ×3 (01:00→18:53)
[2016-10-09] MEDS ORDERED: LORazepam INJ 2 MG/ML (ATIVAN) VIAL ONE (01:29)
[2016-10-09] MEDS ORDERED: HALOPERIDOL 5 MG/ML (HALDOL) AMP IV ONE (01:45)
[2016-10-09] MEDS ORDERED: LORazepam INJ 2 MG/ML (ATIVAN) VIAL IVP ONE (01:45)
[2016-10-09] MEDS: RT-ALBUTEROL/IPRATROPIUM 3 ML (DUONEB) VIAL IH SCH ×6 (02:11→22:18)
[2016-10-09 04:06] LABS: BASOPHILS % (AUTO) 0 % (0-10); EOSINOPHILS % (AUTO) 0 % (0-10); LYMPHOCYTES # (AUTO) 0.7 X 10^3 (1.0-4.0); LYMPHOCYTES % (AUTO) 8 % (12-44); MEAN CORPUSCULAR HEMOGLOBIN 28 PG (25-34); MEAN CORPUSCULAR HGB CONC 32 G/DL (32-36); MEAN CORPUSCULAR VOLUME 88 FL (80-99); MEAN PLATELET VOLUME 9.8 FL (7.4-10.4); MONOCYTES # (AUTO) 0.5 X 10^3 (0.0-1.0); MONOCYTES % (AUTO) 5 % (0-12); NEUTROPHILS # (AUTO) 8.4 X 10^3 (1.8-7.8); NEUTROPHILS % (AUTO) 87 % (42-75); PLATELET COUNT 277 10^3/uL (130-400); RED BLOOD COUNT 3.63 10^6/uL (4.35-5.85); RED CELL DISTRIBUTION WIDTH 15.2 % (10.0-14.5); WHITE BLOOD COUNT 9.6 10^3/uL (4.3-11.0)
[2016-10-09 04:07] LABS: ABG BASE EXCESS 5.3 MMOL/L (-2.5-2.5); ABG HCO3 28 MMOL/L (23-27); ABG OXYGEN SATURATION 96 % (94-100); ABG PCO2 35 MMHG (35-45); ABG PH 7.52 (7.37-7.43); ABG PO2 79 MMHG (79-93); ABG TCO2 29.5 MMOL/L (21.0-31.0)
[2016-10-09 04:13] LABS: ALLENS TEST ART LINE; PATIENT TEMP 98.4
[2016-10-09] MEDS: hydrALAZINE (APESOLINE) 20 MG/ML VIAL IV PRN ×2 (04:18→17:46)
[2016-10-09 04:25] LABS: ANION GAP 15 MMOL/L (5-14); BLOOD UREA NITROGEN 28 MG/DL (7-18); BUN/CREATININE RATIO 36; CALCIUM 8.3 MG/DL (8.5-10.1); CARBON DIOXIDE 23 MMOL/L (21-32); CHLORIDE 108 MMOL/L (98-107); CREATININE SERUM 0.77 MG/DL (0.60-1.30); GFR ESTIMATED > 60; GLUCOSE 312 MG/DL (70-105); MAGNESIUM 2.4 MG/DL (1.8-2.4); PHOSPHORUS 2.8 MG/DL (2.3-4.7); POTASSIUM 3.1 MMOL/L (3.6-5.0); SODIUM 146 MMOL/L (135-145)
[2016-10-09] MEDS: KCL 20 MEQ TAB (K-DUR) PO SCH (04:28)
[2016-10-09] MEDS: POTASSIUM CL 10MEQ/50ML IVPB 50 ML IV SCH ×9 (04:28→10:48)
[2016-10-09] MEDS: MAGNESIUM 1 GM/100 ML IVPB 100 ML IV SCH (04:28)
[2016-10-09] MEDS ORDERED: POTASSIUM CL 10MEQ/50ML IVPB 50 ML IV SCH ×3 (06:15→12:30)
--- NOTE | 2016-10-09 06:23 | Pulmonary Progress Note ---
Subjective Time Seen by Provider: 06:15 Subjective/Events-last exam PT is not tolerating sedation weaning Exam Exam Vital Signs Date Time Temp Pulse Resp B/P (MAP) Pulse Ox O2 Delivery O2 Flow Rate FiO2 10/09/16 06:07 80 33 95 45 10/09/16 05:05 84 10/09/16 05:00 91 42 154/73 94 Mechanical Ventilator 45.00 10/09/16 04:15 85 29 93 45 10/09/16 04:00 Mechanical Ventilator 45 10/09/16 04:00 86 25 156/69 93 Mechanical Ventilator 45.00 10/09/16 03:00 90 20 157/77 95 Mechanical Ventilator 45.00 10/09/16 02:12 76 26 95 45 10/09/16 02:00 77 19 154/71 95 Mechanical Ventilator 45.00 10/09/16 01:00 83 10/09/16 01:00 84 27 154/74 93 Mechanical Ventilator 45.00 10/09/16 00:12 89 33 94 45 10/09/16 00:00 Mechanical Ventilator 45 10/09/16 00:00 87 43 150/70 93 Mechanical Ventilator 45.00 10/09/16 00:00 98.5 Mechanical Ventilator 45.00 10/08/16 23:00 92 26 144/59 98 Mechanical Ventilator 45.00 10/08/16 22:10 73 33 96 45 10/08/16 22:00 77 30 125/62 94 Mechanical Ventilator 45.00 10/08/16 21:08 74 10/08/16 21:00 75 19 128/64 94 Mechanical Ventilator 45.00 10/08/16 20:00 79 29 94 45 10/08/16 20:00 98.9 10/08/16 20:00 Mechanical Ventilator 45 10/08/16 20:00 79 19 158/75 94 Mechanical Ventilator 45.00 10/08/16 19:00 82 18 156/78 94 Mechanical Ventilator 45.00 10/08/16 19:00 82 10/08/16 18:26 77 23 94 45 10/08/16 18:00 78 24 184/77 91 Mechanical Ventilator 45.00 10/08/16 17:27 172/63 10/08/16 17:00 80 45 177/67 96 Mechanical Ventilator 45.00 10/08/16 16:20 Mechanical Ventilator 45 10/08/16 16:00 76 19 175/66 97 Mechanical Ventilator 45.00 10/08/16 15:21 78 26 96 45 10/08/16 15:00 80 23 169/63 96 Mechanical Ventilator 45.00 10/08/16 14:26 170/66 10/08/16 14:00 81 17 121/84 90 Mechanical Ventilator 45.00 10/08/16 13:40 85 33 94 45 10/08/16 13:01 82 10/08/16 13:00 82 11 200/73 99 Mechanical Ventilator 45.00 10/08/16 12:15 Mechanical Ventilator 45 10/08/16 12:00 90 27 177/83 96 Mechanical Ventilator 45.00 10/08/16 11:32 72 27 95 45 10/08/16 11:00 77 34 162/73 97 Mechanical Ventilator 45.00 10/08/16 10:00 77 25 162/79 96 Mechanical Ventilator 45.00 10/08/16 09:00 76 25 164/69 94 Mechanical Ventilator 45.00 10/08/16 08:47 78 24 95 45 10/08/16 08:05 Mechanical Ventilator 45 10/08/16 08:00 99.2 Mechanical Ventilator 45.00 10/08/16 08:00 88 34 165/75 96 Mechanical Ventilator 45.00 10/08/16 07:00 81 10/08/16 07:00 81 18 167/78 95 Mechanical Ventilator 45.00 10/08/16 06:48 79 22 95 10/08/16 06:22 74 20 94 45 I & O 10/09/16 07:00 Intake Total 1972.5 ml Output Total 2925 ml Balance -952.5 ml General Appearance: WD/WN, Moderate Distress HEENT: PERRL/EOMI, TMs Normal, Normal ENT Inspection, Pharynx Normal Neck: Normal Inspection Respiratory: No Accessory Muscle Use, No Respiratory Distress, Wheezing, Other (Delayed forced expiratory phase, barking cough) Cardiovascular: Regular Rate, Rhythm, No Murmur, Other (Mild lower extremity edema) Capillary Refill: Less Than 3 Seconds Gastrointestinal: non tender, soft, no organomegaly, abnormal bowel sounds, distended Extremity: Pedal Edema (Mild lower extremity edema equal bilaterally) Neurologic/Psychiatric: Alert, Oriented x3, No Motor/Sensory Deficits, Normal Mood/Affect, minister of 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 -Current sedation is Precedex, fentanyl, versed, and Haldol 5mg BID -wean versed to D/C -Wean Fentanyl to <25mcg/hr -Use Diprivan at night -TF with pulmicare - hold for 2hrs if residual >250 - Continuous CVP monitoring CVP -Pneumonia with respiratory failure with ARDS Pa02/Fi02 =175 - PEEP to 8cmh20 -continue vent AC 20/450/8 -Continue SVNs, Abx -Hines cultures reviewed -Solumedrol 40mg IV Q6 Ileus/constipation - Reglan 10mg IV daily -add mad citrate and mineral oil enema - KUB reviewed Hyperglycemia -increase Levemir 10units BID -Continue SSI Hypokalemia -replace and add KCL to IVF Hypernatremia -Change IVF to 1/2 NS with 20 KCL -andd 250 cc of free water to OG tube Q6 Hypertension - increase lopressor to 50 mg BID , norvasc, PRN hydralazine for SBP >160 -Obesity Hx of vocal cord paralysis Labs and radiology reviewed 120min spent with patient and medical staff. I discussed with nursing, and pharmacy regarding pulmary status, sedation, HTN, ileus and plan of care. Clinical Quality Measures DVT/VTE Risk/Contraindication: Risk Factor Score Per Nursin RFS Level Per Nursing on Admit: 4+=Very High MILE SUMMERS DO Oct 09, 2016 06:23
[2016-10-09] MEDS ORDERED: MINERAL OIL ENEMA 133 ML BTL PR PRN (06:30)
[2016-10-09] MEDS ORDERED: MAGNESIUM CITRATE 300 ML BTL PO NR (06:30)
[2016-10-09] MEDS ORDERED: FUROSEMIDE 40 MG/4 ML INJ (LASIX) IVP NR (06:30)
[2016-10-09] MEDS: 1/2 NS W/KCL 20 MEQ/L 1,000 ML IV SCH (06:37)
[2016-10-09] MEDS: fentaNYL INJECTION 1,250 MCG in NS (IVPB) 225 ML IV SCH ×2 (06:42→13:56)
--- NOTE | 2016-10-09 08:57 | Diagnostic Imaging Report ---
INDICATION: Dyspnea. COMPARISON: 10/08/2016. FINDINGS: The severe 5 lobed airspace opacities show no substantial change. The ET tube is above the jhon. The right IJ is at the SVC. The OG catheter is in the stomach. IMPRESSION: Unchanged severe 5 lobed airspace disease and support apparatus. Dictated by: Dictated on workstation # [id number]
[2016-10-09] MEDS: HALOPERIDOL 5 MG/ML (HALDOL) AMP IV SCH ×2 (09:17→20:51)
[2016-10-09] MEDS: inSUlin DETERMIR 1 UNIT/0.01 ML (LEVEMIR) CHARGE PER UNIT SQ SCH ×2 (09:18→20:52)
[2016-10-09] MEDS: LACTULOSE SYRUP 10GM/15ML (ENULOSE) 30ML UDC PO SCH ×3 (09:48→20:52)
[2016-10-09] MEDS: meTOprolol TARTRATE 25 MG (LOPRESSOR) TABLET PO SCH ×2 (09:57→20:53)
[2016-10-09] MEDS: METOCLOPRAMIDE INJ 10 MG/2 ML (REGLAN) IVP SCH (09:57)
[2016-10-09] MEDS: lisINopril 10 MG (PRINIVIL) TAB PO SCH (09:57)
[2016-10-09] MEDS: amLODIPine 5 MG (NORVASC) TAB PO SCH (09:57)
[2016-10-09] MEDS: ARTIFICAL TEARS 0.4 ML UNIT DOSE (REFRESH PLUS) OU SCH ×2 (09:57→20:52)
[2016-10-09] MEDS: PANTOPRAZOLE 40 MG/10 ML (PROTONIX) VIAL IV SCH ×2 (09:57→20:51)
[2016-10-09] MEDS: ANIDULAFUNGIN INJECTION 100 MG in NS (IVPB) 100 ML IV SCH (12:08)
[2016-10-09 15:44] LABS: ANION GAP 11 MMOL/L (5-14); BLOOD UREA NITROGEN 28 MG/DL (7-18); BUN/CREATININE RATIO 39; CALCIUM 8.5 MG/DL (8.5-10.1); CARBON DIOXIDE 26 MMOL/L (21-32); CHLORIDE 110 MMOL/L (98-107); CREATININE SERUM 0.72 MG/DL (0.60-1.30); GFR ESTIMATED > 60; GLUCOSE 148 MG/DL (70-105); POTASSIUM 4.1 MMOL/L (3.6-5.0); SODIUM 147 MMOL/L (135-145)
--- NOTE | 2016-10-09 16:17 | Physical Therapy Evaluation ---
PT Evaluation-General Medical Diagnosis Admission Date Oct 01, 2016 at 06:28 Medical Diagnosis: PNE Onset Date: Oct 01, 2016 Therapy Diagnosis Therapy Diagnosis: impaired mobility, strength, endurance Height/Weight Height (Feet): 5 Height (Inches): 7.00 Weight (Pounds): 243 Weight (Ounces): 12.8 Precautions Precautions/Isolations: Fall Prevention, Standard Precautions Referral Physician: Zelalem Reid DO Reason for Referral: Evaluation/Treatment Medical History Pertinent Medical History: CAD, COPD, DM, HTN, Neuropathy, OA Additional Medical History former smoker, dysphasia post op cervical fusion, DJD, HLP, STACY, morbid obesity , LLL pneumonia, fibromyalgia, IBS, surg (hysterectomy, appendectomy, RCR, tonsillectomy, tracheostomy) Current History went to ER with barking cough and difficulty breathing Social History patient is intubated, unable to communicate Prior/Core FIM Prior Level of Function Functional [place] Measure 0=Not Assessed/NA 4=Minimal Assistance 1=Total Assistance 5=Supervision or Setup 2=Maximal Assistance 6=Modified [place] 3=Moderate Assistance 7=Complete [place] unobtainable PT Evaluation-Current Subjective Patient in bed pre tx, has restraints on upper extremities, intubated Pt/Family Goals none stated Objective Patient Orientation: Unable to Assess many attachments, urinary catheter, intubated, rectal tube ROM/Strength ROM Lower Extremities generally slightly limited in lower extremities Strenght Lower Extremities 2/5 gross bilateral lower extremities Neuromuscular (Tone, Coordination, Reflexes) NT Transfers Functional [place] Measure 0=Not Assessed/NA 4=Minimal Assistance 1=Total Assistance 5=Supervision or Setup 2=Maximal Assistance 6=Modified [place] 3=Moderate Assistance 7=Complete [place] Treatment Patient performed bilateral lower extremity bed exercises x10 (AP, HS, SLR, hip abd/add, SAQ), patient was able to follow directions for exercises and she was able to perform AAROM but she could not perform the exercises on her own. Assessment/Needs Patient is intubated, has impaired mobility, strength, endurance. Rehab Potential: Poor PT Toll Repairer Central Office Goals Usp Goals PT Usp Goals Time Frame: Oct 16, 2016 Transfers (B,C,W/C) (FIM): 2 PT Plan Problem List Problem List: Activity Tolerance, Functional Strength, Safety, Balance, Gait, Transfer, Bed Mobility, ROM Treatment/Plan Treatment Plan: Continue Plan of Care Treatment Plan: Bed Mobility, Education, Functional Activity Fadi, Functional Strength, Gait, Safety, Therapeutic Exercise, Transfers Treatment Duration: Oct 16, 2016 Frequency: 6 times per week Estimated Hrs Per Day: .25 hour per day (15-30 min per day) Patient and/or Family Agrees t: Yes (unsure if patient actually agrees to this) Safety Risks/Education Patient Education: Correct Positioning, Safety Issues Teaching Recipient: Patient Teaching Methods: Discussion Response to Teaching: Reinforcement Needed Discharge Recommendations Plan Patient will perform bed mobility and transfer training, balance and endurance training, functional strengthening, gait training if able, and education to improve functional mobility and independence. Therapy D/C Recommendations: Usp (TCU/NH) Time/GCodes Time In: 1550 Time Out: 1605 Total Billed Treatment Time: 15 Total Billed Treatment 1 visit TORSTEN SANTY MONDRAGON PT Oct 09, 2016 16:17
--- NOTE | 2016-10-09 19:04 | Progress Note (SOAP) ---
Subjective Subjective/Events-last exam Patient remain intubated. BM this AM that was large. Patient is awake and answering Y/N questions. Review of Systems Date Seen by Provider: Oct 09, 2016 Time Seen by Provider: 09:45 Objective Exam Last Set of Vital Signs Vital Signs Date Time Temp Pulse Resp B/P (MAP) Pulse Ox O2 Delivery O2 Flow Rate FiO2 10/09/16 18:23 97.2 10/09/16 18:00 Mechanical Ventilator 10/09/16 17:00 82 33 94 10/09/16 16:00 45 10/09/16 11:00 45.00 Capillary Refill : Less Than 3 Seconds I&O Intake and Output 10/09/16 00:00 Intake Total 2002.5 ml Output Total 2800 ml Balance -797.5 ml Intake Oral 0 ml IV Total 1356.5 ml Tube Feeding 346 ml Other 300 ml Output Urine Total 2525 ml Gastric Drainage Total 275 ml General: Mild Distress, Other (Awake and breathing over vent, + anxiety) Neck: Supple Lungs: Other (+ crackles and wheezes throughout) Heart: Regular Rate, No Murmurs Abdomen: Normal Bowel Sounds, Soft, No Tenderness, No Masses Extremities: No Tenderness/Swelling, Other (edema 2+ pitting bilaterally) Neuro: Other (opens eyes on command, moves all extremities, answers simple questions appropriately) Psych/Mental Status: Other (Anxious) Results/Procedures Lab Laboratory Tests 10/08/16 23:50: Stool Occult Blood Immunoassay NEGATIVE 10/09/16 00:18: Glucometer 351H 10/09/16 03:50: White Blood Count 9.6, Red Blood Count 3.63L, Hemoglobin 10.1L, Hematocrit 32L, Mean Corpuscular Volume 88, Mean Corpuscular Hemoglobin 28, Mean Corpuscular Hemoglobin Concent 32, Red Cell Distribution Width 15.2H, Platelet Count 277, Mean Platelet Volume 9.8, Neutrophils (%) (Auto) 87H, Lymphocytes (%) (Auto) 8L , Monocytes (%) (Auto) 5, Eosinophils (%) (Auto) 0, Basophils (%) (Auto) 0, Neutrophils # (Auto) 8.4H, Lymphocytes # (Auto) 0.7L, Monocytes # (Auto) 0.5, Eosinophils # (Auto) 0.0, Basophils # (Auto) 0.0, Blood Gas Puncture Site ARTLINE, Blood Gas Patient Temperature 98.4, Arterial Blood pH 7.52H, Arterial Blood Partial Pressure CO2 35, Arterial Blood Partial Pressure O2 79, Arterial Blood HCO3 28H, Arterial Blood Total CO2 29.5, Arterial Blood Oxygen Saturation 96, Arterial Blood Base Excess 5.3H, Afshin Test ART LINE, Blood Gas Ventilator Setting YES, Blood Gas Inspired Oxygen 45%, Sodium Level 146H, Potassium Level 3.1L, Chloride Level 108H, Carbon Dioxide Level 23, Anion Gap 15H, Blood Urea Nitrogen 28H, Creatinine 0.77, Estimat Glomerular Filtration Rate > 60, BUN/ Creatinine Ratio 36, Glucose Level 312H, Calcium Level 8.3L, Phosphorus Level 2.8, Magnesium Level 2.4 10/09/16 13:00: Glucometer 158H 10/09/16 15:15: Sodium Level 147H, Potassium Level 4.1, Chloride Level 110H, Carbon Dioxide Level 26, Anion Gap 11, Blood Urea Nitrogen 28H, Creatinine 0.72, Estimat Glomerular Filtration Rate > 60, BUN/Creatinine Ratio 39, Glucose Level 148H, Calcium Level 8.5 10/09/16 18:21: Glucometer 200H Microbiology 10/01/16 Blood Culture - Final, Complete No growth 10/08/16 C. difficile GDH Antigen & Toxins - Preliminary, Resulted 10/03/16 Mycobacterial Culture - Preliminary, Resulted Radiology Date of Exam:10/01/16 CHEST 1 VIEW, AP/PA ONLY INDICATION: Shortness of breath, COPD, asthma. COMPARISON STUDY: Chest from 07/08/2015. FINDINGS: Portable semiupright view of the chest demonstrates patchy infiltrates throughout the right lung and in the left base. Heart size is upper limits of normal. Vascularity is normal. There are no pleural effusions. IMPRESSION: There are bilateral pulmonary infiltrates. Assessment/Plan Assessment/Plan Admission Dx SEPTIC SHOCK COMMUNITY ACQUIRED PNEUMONIA ACUTE ON CHRONIC RESPIRATORY FAILURE DIABETES MELLITUS TYPE 2, NON INSULIN REQUIRING Plan SEPTIC SHOCK ADM: protocol initiated with fluid boluses, has received Levaquin (PCN allergy) . will monitor in ICU for now. Have consulted Dr Reid who told me he thinks intubation may be needed - as it has multiple times in dar past. BLood cultures pending. 10/02 - resolved. holding her BP. appears to have averted intubation. cultures still pending. COMMUNITY ACQUIRED PNEUMONIA ACUTE ON CHRONIC RESPIRATORY FAILURE, considered for ARDS ADM: On BiPAP now, will see how she does over the next few hours to see if intubation is required. Levaquin right now, cultures pending. IV steroids, MAT protocol. 10/02 - continue BiPAP. levaquin day 2; MAT protocol. pt is in fact not on steroids. cultures pending - sputum is haemophilus. 10/03 - B-lactamas Haemophilus. DC levaquin, start merrem. 10/04 - resp cx also grew yeast - diflucan started today. vanc also added due to another fever today. merrem day 2. vent to be managed by Dr Plaza with phone assistance from Dr Reid and also Alice. I will be available to come in over the weekend if necessary. 10/05 - pH 7.27 this AM, Dr Reid notified, repeat ABG in AM, Afebrile since yesterday AM, Continue Diflucan, Merropenum and Vanc 10/06- No changes in antiboitics today 10/08 - Remains intubated but seems to be moving air better, minimal change in CXR HTN: Uncontrolled 10/07 - Started Norvasc per tube, will continue to monitor blood pressures, if they remain elevated will restart Lisinopril 10/08 - Restart lisinopril and schedule lasix x 4 doses to control fluid overload 10/09 - Metoprolol added today by Dr Reid DIABETES MELLITUS TYPE 2, NON INSULIN REQUIRING ADM: SSI per ICU protocol for now. NPO due to BiPAP. 10/02 - no change, BS above goal, will monitor for another 24h, may need more aggressive regimen 10/03 - maintain ICU SSI 10/04 - improved, continue ICU SSI 10/05 - Blood sugars at goal, Continue ICU SSI ACUTE KIDNEY INJURY: Resolved ANEMIA, Normcytic 10/04 - 1 unit PRBCs today 10/06- 2 untis pRBCs given today for hgb of 7.8 10/08 - Hgb improved and stable, will continue to monitor and give iron when ok with Dr Reid Fluid Overload 10/06- Patient has gain over 10 kg since admission, likely fluid, Gave lasix 40 mg IV before and after blood was administered today, will watch fluid status closely 10/07 - Lasix 40 mg giving today for fluid overload 10/08 - Gave 1 dose of lasix last night, patient diuresed well, good UOP, weight trending down HyperNa 10/09 - Free water flushes started today and IVF changed to 1/2NS, will continue to monitor DVT Proph: Lovenox 40 GFR>40 GI proph: continue home regimen. DISPOSITION 10/04 - UR asking if patient is LTAC appropriate. we will see how she does this weekend and make a decision from there. no plans to extubate this weekend. 10/05 - Patient continues to need full mechanical ventilation 10/09 - - Commodore to evaluate patient Diagnosis/Problems: Clinical Quality Measures DVT/VTE Risk/Contraindication: Risk Factor Score Per Nursin RFS Level Per Nursing on Admit: 4+=Very High RICHIE PLAZA MD Oct 09, 2016 19:04
[2016-10-09] MEDS: PROPOFOL DRIP (ICU) 100 ML IV SCH (19:34)
[2016-10-09] MEDS: ENOXAPARIN 40 MG/0.4 ML (LOVENOX) SYR SC SCH (20:52)
[2016-10-09] MEDS: CATHETER FLUSH 10 ML SYR IV PRN (20:53)
[2016-10-10] VITALS (36 sets, daily range): BP systolic 96–172; BP diastolic 51–88
[2016-10-10] MEDS: PROPOFOL DRIP (ICU) 100 ML IV SCH ×5 (00:42→19:50)
[2016-10-10] MEDS: RT-ALBUTEROL/IPRATROPIUM 3 ML (DUONEB) VIAL IH SCH ×6 (02:35→21:54)
[2016-10-10 04:17] LABS: ABG BASE EXCESS 3.6 MMOL/L (-2.5-2.5); ABG HCO3 28 MMOL/L (23-27); ABG OXYGEN SATURATION 97 % (94-100); ABG PCO2 41 MMHG (35-45); ABG PH 7.44 (7.37-7.43); ABG PO2 84 MMHG (79-93); ABG TCO2 29.1 MMOL/L (21.0-31.0)
[2016-10-10 04:19] LABS: ALLENS TEST ART LINE
[2016-10-10 04:41] LABS: BASOPHILS % (AUTO) 0 % (0-10); EOSINOPHILS % (AUTO) 0 % (0-10); LYMPHOCYTES # (AUTO) 0.6 X 10^3 (1.0-4.0); LYMPHOCYTES % (AUTO) 8 % (12-44); MEAN CORPUSCULAR HEMOGLOBIN 28 PG (25-34); MEAN CORPUSCULAR HGB CONC 31 G/DL (32-36); MEAN CORPUSCULAR VOLUME 90 FL (80-99); MEAN PLATELET VOLUME 9.7 FL (7.4-10.4); MONOCYTES # (AUTO) 0.3 X 10^3 (0.0-1.0); MONOCYTES % (AUTO) 3 % (0-12); NEUTROPHILS % (AUTO) 89 % (42-75); PLATELET COUNT 244 10^3/uL (130-400); RED BLOOD COUNT 3.42 10^6/uL (4.35-5.85); RED CELL DISTRIBUTION WIDTH 15.2 % (10.0-14.5); WHITE BLOOD COUNT 7.9 10^3/uL (4.3-11.0)
[2016-10-10 05:01] LABS: ANION GAP 9 MMOL/L (5-14); BLOOD UREA NITROGEN 29 MG/DL (7-18); BUN/CREATININE RATIO 44; CALCIUM 7.9 MG/DL (8.5-10.1); CARBON DIOXIDE 25 MMOL/L (21-32); CHLORIDE 110 MMOL/L (98-107); CREATININE SERUM 0.66 MG/DL (0.60-1.30); GFR ESTIMATED > 60; GLUCOSE 306 MG/DL (70-105); MAGNESIUM 2.5 MG/DL (1.8-2.4); PHOSPHORUS 3.7 MG/DL (2.3-4.7); POTASSIUM 4.2 MMOL/L (3.6-5.0); SODIUM 144 MMOL/L (135-145); TRIGLYCERIDES 375 MG/DL (<150)
[2016-10-10] MEDS: POTASSIUM CL 10MEQ/50ML IVPB 50 ML IV SCH (05:27)
[2016-10-10] MEDS: KCL 20 MEQ TAB (K-DUR) PO SCH (05:28)
[2016-10-10] MEDS: MAGNESIUM 1 GM/100 ML IVPB 100 ML IV SCH (05:28)
[2016-10-10] MEDS: DEXMEDETOMIDINE INJECTION 400 MCG in NS (IVPB) 100 ML IV SCH ×5 (05:40→19:10)
[2016-10-10] MEDS: MEROPENEM 500 MG in NS (IVPB) 100 ML IV SCH ×3 (05:44→19:11)
[2016-10-10] MEDS: inSUlin (REGULAR) HUMAN 1 UNIT/0.01 ML (CHARGE PER UNIT) SC SCH ×3 (05:44→19:11)
[2016-10-10] MEDS: methylPREDNISolone 40 MG/ML (Solu-MEDROL) VIAL IV SCH (05:44)
[2016-10-10] MEDS: 1/2 NS W/KCL 20 MEQ/L 1,000 ML IV SCH (05:48)
[2016-10-10] MEDS: fentaNYL INJECTION 1,250 MCG in NS (IVPB) 225 ML IV SCH ×2 (06:18→12:49)
--- NOTE | 2016-10-10 07:56 | Pulmonary Progress Note ---
Subjective Time Seen by Provider: 07:51 Subjective/Events-last exam PT is awake/alert and appropriate. PT did well on weaning parameters. Will D/C Diprivan and start weaning vent Exam Exam Vital Signs Date Time Temp Pulse Resp B/P (MAP) Pulse Ox O2 Delivery O2 Flow Rate FiO2 10/10/16 06:51 53 23 98 45 10/10/16 06:49 53 10/10/16 05:00 57 10 137/73 96 Mechanical Ventilator 45.00 10/10/16 04:10 52 18 96 10/10/16 04:00 54 24 97 45 10/10/16 04:00 Mechanical Ventilator 45 10/10/16 04:00 96.0 10/10/16 04:00 55 16 138/76 97 Mechanical Ventilator 45.00 10/10/16 03:00 57 10 107/59 97 Mechanical Ventilator 45.00 10/10/16 02:35 49 24 97 45 10/10/16 02:00 48 18 126/75 97 Mechanical Ventilator 45.00 10/10/16 01:00 50 10/10/16 01:00 51 9 122/67 97 Mechanical Ventilator 45.00 10/10/16 00:42 103/57 10/10/16 00:11 52 24 96 45 10/10/16 00:00 96.9 10/10/16 00:00 Mechanical Ventilator 45 10/10/16 00:00 50 11 112/56 96 Mechanical Ventilator 45.00 10/09/16 23:00 59 15 106/59 97 Mechanical Ventilator 45.00 10/09/16 22:18 55 26 97 45 10/09/16 22:00 62 15 114/66 96 Mechanical Ventilator 45.00 10/09/16 21:00 64 34 125/63 96 Mechanical Ventilator 45.00 10/09/16 20:03 74 23 94 45 10/09/16 20:00 77 26 142/64 93 Mechanical Ventilator 45.00 10/09/16 20:00 Mechanical Ventilator 45 10/09/16 20:00 97.8 10/09/16 19:34 167/57 10/09/16 19:00 93 138/64 95 Mechanical Ventilator 45.00 10/09/16 19:00 91 10/09/16 18:42 88 35 95 45 10/09/16 18:23 97.2 10/09/16 18:00 Mechanical Ventilator 10/09/16 17:00 82 33 193/87 94 Mechanical Ventilator 10/09/16 16:46 98.3 10/09/16 16:00 93 31 189/76 94 Mechanical Ventilator 10/09/16 16:00 Mechanical Ventilator 45 10/09/16 15:51 101 26 95 45 10/09/16 15:00 91 39 185/83 94 Mechanical Ventilator 10/09/16 14:04 78 23 95 45 10/09/16 14:00 99.7 10/09/16 14:00 80 24 178/78 95 Mechanical Ventilator 10/09/16 13:11 99.9 10/09/16 13:00 79 14 169/77 95 Mechanical Ventilator 10/09/16 13:00 81 10/09/16 12:00 Mechanical Ventilator 45 10/09/16 12:00 99 40 93 45 10/09/16 11:25 100.0 10/09/16 11:00 79 36 149/77 94 Mechanical Ventilator 45.00 10/09/16 10:48 180/59 10/09/16 10:05 101 42 95 45 10/09/16 10:00 95 34 155/73 94 Mechanical Ventilator 45.00 10/09/16 09:00 92 41 161/72 95 Mechanical Ventilator 45.00 10/09/16 08:00 93 30 148/70 94 Mechanical Ventilator 45.00 10/09/16 08:00 98.0 10/09/16 08:00 Mechanical Ventilator 45 I & O 10/10/16 07:00 Intake Total 3907.5 ml Output Total 3600 ml Balance 307.5 ml General Appearance: WD/WN, Moderate Distress HEENT: PERRL/EOMI, TMs Normal, Normal ENT Inspection, Pharynx Normal Neck: Normal Inspection Respiratory: No Accessory Muscle Use, No Respiratory Distress, Wheezing, Other (Delayed forced expiratory phase, barking cough) Cardiovascular: Regular Rate, Rhythm, No Murmur, Other (Mild lower extremity edema) Capillary Refill: Less Than 3 Seconds Gastrointestinal: non tender, soft, no organomegaly, abnormal bowel sounds, distended Extremity: Pedal Edema (Mild lower extremity edema equal bilaterally) Neurologic/Psychiatric: Alert, Oriented x3, No Motor/Sensory Deficits, Normal 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, 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 Norm as Tested Skin: Normal Color, Warm/Dry Lymphatic: No Adenopathy Results Lab Laboratory Tests 10/09/16 03:50 10/09/16 15:15 10/10/16 04:09 Assessment/Plan Assessment/Plan --Acute on Chronic respiratory failure - appears to be doing better today - Merrem Eraxis -continue precedex - versed D/C -D/C Fentanyl -TF with pulmicare - hold for 2hrs if residual >250 - Continuous CVP monitoring CVP -Pneumonia with respiratory failure with ARDS Pa02/Fi02 =187 - PEEP to 8cmh20 -continue vent AC 20/450/8 -Continue SVNs, Abx -Hines cultures reviewed -Solumedrol - d/c Hyperglycemia -increase Levemir 10units BID -Continue SSI -replace and add KCL to IVF -D/C steroids Hypertension - increase lopressor to 50 mg BID , norvasc, PRN hydralazine for SBP >160 -Obesity Hx of vocal cord paralysis Labs and radiology reviewed 120min spent with patient and medical staff. I discussed with nursing, and pharmacy regarding pulmonary status, sedation, HTN, ileus and plan of care. Clinical Quality Measures DVT/VTE Risk/Contraindication: Risk Factor Score Per Nursin RFS Level Per Nursing on Admit: 4+=Very High MILE SUMMERS DO Oct 10, 2016 07:56
--- NOTE | 2016-10-10 08:20 | Diagnostic Imaging Report ---
INDICATION: Dyspnea. Exam compared 10/09/2016. The support apparatus projects in unchanged alignment aside from interval placement of a right PICC line at the mid/ lower SVC. Five lobe airspace disease shows mild interval improvement at the level of the left upper lobe but remains substantial. No convincing evidence for substantial pleural fluid. No pneumothorax. IMPRESSION: Newly placed right PICC line in good position, slight improvement in what remain to be severe five lobe airspace infiltrates. Dictated by: Dictated on workstation # [id number]
[2016-10-10] MEDS: FUROSEMIDE 40 MG/4 ML INJ (LASIX) IVP SCH (09:42)
[2016-10-10] MEDS: METOCLOPRAMIDE INJ 10 MG/2 ML (REGLAN) IVP SCH (09:42)
[2016-10-10] MEDS: HALOPERIDOL 5 MG/ML (HALDOL) AMP IV SCH ×2 (09:42→21:30)
[2016-10-10] MEDS: PANTOPRAZOLE 40 MG/10 ML (PROTONIX) VIAL IV SCH ×2 (09:42→21:30)
[2016-10-10] MEDS: meTOprolol TARTRATE 25 MG (LOPRESSOR) TABLET PO SCH ×2 (09:43→21:31)
[2016-10-10] MEDS: amLODIPine 5 MG (NORVASC) TAB PO SCH (09:43)
[2016-10-10] MEDS: lisINopril 10 MG (PRINIVIL) TAB PO SCH (09:43)
[2016-10-10] MEDS: inSUlin DETERMIR 1 UNIT/0.01 ML (LEVEMIR) CHARGE PER UNIT SQ SCH ×2 (09:44→21:30)
[2016-10-10] MEDS: ARTIFICAL TEARS 0.4 ML UNIT DOSE (REFRESH PLUS) OU SCH ×2 (09:44→21:30)
--- NOTE | 2016-10-10 11:07 | Physical Therapy Daily Note ---
PT Daily Note-Current Subjective Patient in bed pre tx, still intubated. Patient indicates with a nod of the head that she will participate in bed exercises. Patient shakes her head when asked if she has any pain. Appearance Patient in bed post tx with heels elevated on pillow. Restraints on wrists. Mental Status Patient Orientation: Unable to Assess many attachments Transfers Functional [place] Measure 0=Not Assessed/NA 4=Minimal Assistance 1=Total Assistance 5=Supervision or Setup 2=Maximal Assistance 6=Modified [place] 3=Moderate Assistance 7=Complete IndependenceIRFPAI Quality Coding Scale 6 Independent with activity with or without an assistive device 5 Patient requires set up or clean up by helper. Patient completes activity by themselves 4 Supervision or touching assist (CGA). [place] provide cues , steadying assist 3 The helper provides less than half the effort to complete the activity 2 The helper provides more than half the effort to complete the activity 1 Dependent. The helper does all the effort to complete an activity 7 Patient refused to complete or attempt activity 9 The patient did not perform the activity before the current illness or injury 88 Not attempted due to Medical conditions or safety concerns Exercises Supine Ex: Ankle pumps, Heel Slides Supine Reps: 10 Patient performed the ankle pumps with AROM but needed AAROM for the heel slides. Patient indicated with a stopping motion with her hand that she was done and wanted to stop after these 2 exercises. She still indicated that she did not have any pain but shakes her head yes when asked if she is tired. Treatments functional strengthening Assessment Current Status: Poor Progress no change PT Videogame Designer Goals Videogame Designer Goals PT Videogame Designer Goals Time Frame: Oct 16, 2016 Transfers (B,C,W/C) (FIM): 2 PT Plan Problem List Problem List: Activity Tolerance, Functional Strength, Safety, Balance, Gait, Transfer, Bed Mobility, ROM Treatment/Plan Treatment Plan: Continue Plan of Care Treatment Plan: Bed Mobility, Education, Functional Activity Fadi, Functional Strength, Gait, Safety, Therapeutic Exercise, Transfers Treatment Duration: Oct 16, 2016 Frequency: 6 times per week Estimated Hrs Per Day: .25 hour per day (15-30 min per day) Patient and/or Family Agrees t: Yes (unsure if patient actually agrees to this) Safety Risks/Education Patient Education: Correct Positioning Teaching Recipient: Patient Teaching Methods: Discussion Response to Teaching: Reinforcement Needed Time/GCodes Time In: 1050 Time Out: 1100 Total Billed Treatment Time: 10 Total Billed Treatment 1 visit EX 10SANTY LESTER PT Oct 10, 2016 11:07
[2016-10-10] MEDS: ANIDULAFUNGIN INJECTION 100 MG in NS (IVPB) 100 ML IV SCH (11:22)
--- NOTE | 2016-10-10 11:43 | Diagnostic Imaging Report ---
INDICATION: Left hand swelling. TECHNIQUE: Color and grayscale sonographic images with duplex Doppler evaluation of the upper extremity venous system. CORRELATION STUDY: None FINDINGS: There is no intraluminal filling defect within the visualized portion of the internal jugular, subclavian, axillary, brachial and/or basilic veins to suggest thrombus formation. Where applicable, these vessels demonstrate normal response to compression and augmentation. There is no significant soft tissue fluid collection. IMPRESSION: 1. Negative left upper extremity venous duplex Doppler evaluation. Dictated by: Dictated on workstation # [id number]
[2016-10-10] MEDS: HALOPERIDOL 5 MG/ML (HALDOL) AMP IV PRN (13:44)
--- NOTE | 2016-10-10 13:52 | Occupational Therapy Eval ---
OT Evaluation-General/PLF Medical Diagnosis Admission Date Oct 01, 2016 at 06:28 Medical Diagnosis: PNE Onset Date: Oct 01, 2016 Therapy Diagnosis Therapy Diagnosis: decr self care, weakness, edema, decr funct mobility, decr activ tolerance Height/Weight Height (Feet): 5 Height (Inches): 7.00 Weight (Pounds): 233 Weight (Ounces): 8.0 Precautions Precautions/Isolations: Standard Precautions Safety Interventions: None Referral Physician: Zelalem Reid DO Referral Reason: Evaluation/Treatment Medical History Pertinent Medical History: CAD, COPD, DM, HTN, Neuropathy, OA Additional Medical History former smoker, dysphasia post op cervical fusion, DJD, HLP, STACY, morbid obesity , LLL pneumonia, fibromyalgia, IBS, surg (hysterectomy, appendectomy, RCR, tonsillectomy, tracheostomy 05/09 for laryngeal spasms) Current History went to ER with barking cough and difficulty breathing. Now in ICU on ventilator , pending discharge to [facility] tomorrow Reviewed History: Yes Social History Current Living Status: Spouse ADL-Prior Level of Function ADL PLOF Comments Pt is intubated and unable to verbally answer questions about prior functional status or to nod agreement to questions about PFS. OT Current Status Subjective Pt seen in room, in bed, agreeable to OT. Nodded that she wasn't in any pain Mental Status/Objective Patient Orientation: Person, Confused Attachments: Central Line, Leroy Catheter, IV, Oxygen, Telemetry, Ventilator Current Upper Extremity ROM Pt had difficulty following instructions to assess ROM. Her bilat UEs are edematous and she is in restraints. She has a splint on her R wrist, apparently to protect IV site. Able to reach overhead on R but reluctant to lift L UE up off the bed. Able to move fingers bilat but not make a fist Upper Extremity Strength Grossly 2+/5 bilat. Assist needed to reach overhead with R UE and unable to maintain position ADL-Treatment ADL-Current Pt is intubated, NPO. Has leroy catheter. Dependant with ADLs Functional [place] Measure 0=Not Assessed/NA 4=Minimal Assistance 1=Total Assistance 5=Supervision or Setup 2=Maximal Assistance 6=Modified [place] 3=Moderate Assistance 7=Complete IndependenceIRFPAI Quality Coding Scale 6 Independent with activity with or without an assistive device 5 Patient requires set up or clean up by helper. Patient completes activity by themselves 4 Supervision or touching assist (CGA). [place] provide cues , steadying assist 3 The helper provides less than half the effort to complete the activity 2 The helper provides more than half the effort to complete the activity 1 Dependent. The helper does all the effort to complete an activity 7 Patient refused to complete or attempt activity 9 The patient did not perform the activity before the current illness or injury 88 Not attempted due to Medical conditions or safety concerns Requested for and obtained pressure sensitive call light because she has difficulty pressing call button on regular controls. Call light tested and pt is able to use it to turn light on. OT Detention Goals Stenographic [employer] Reporter Goals Time Frame: Nov 01, 2016 Maximize independence in basic ADLs, with target levels to be developed as she is able to increase mobility and functional use of UEs Additional Goals: 2-Verbalize Understanding, 3-ImproveStrength/Fadi 1=Demonstrate adherence to instructed precautions during ADL tasks. 2=Patient will verbalize/demonstrate understanding of assistive devices/ modifications for ADL. 3=Patient will improve strength/tolerance for activity to enable patient to perform ADL's. OT Education/Plan Problem List/Assessment Assessment: Decreased Activ Tolerance, Decreased UE Strength, Dependent Transfers, Edema, Impaired Cognition, Impaired Coordination, Impaired Funct Balance, Impaired Self-Care Skills Pt would benefit from skilled OT to increase the functional use of her UEs and increase her independence in basic self care to allow her to return home safely and to decrease caregiver burden Discharge Recommendations Plan/Recommendations: Continue POC Treatment Plan/Plan of Care Treatment,Training & Education: Yes Patient would benefit from OT for education, treatment and training to promote independence in ADL's, mobility, safety and/or upper extremity function for ADL' s. Plan of Care: ADL Retraining, Functional Mobility, UE Funct Exercise/Act, UE Neuromus Re-Ed/Coord Treatment Duration: Oct 25, 2016 Frequency: Daily Estimated Hrs Per Day: .5 hour per day Agreement: Yes Rehab Potential: Poor Time/GCodes Start Time: 13:25 Stop Time: 13:45 Total Time Billed (hr/min): 20 Billed Treatment Time visit, 20 minutes evaluation high intensity FELICIANO FRIAS OT Oct 10, 2016 13:52
[2016-10-10 14:18] LABS: ABG BASE EXCESS 4.7 MMOL/L (-2.5-2.5); ABG HCO3 28 MMOL/L (23-27); ABG OXYGEN SATURATION 99 % (94-100); ABG PCO2 34 MMHG (35-45); ABG PH 7.52 (7.37-7.43); ABG PO2 107 MMHG (79-93)
[2016-10-10 14:19] LABS: ALLENS TEST ART LINE; PATIENT TEMP 96.7
--- NOTE | 2016-10-10 19:17 | Progress Note (SOAP) ---
Subjective Subjective/Events-last exam Patient intubated off sedation this AM. Awake and answering Y/N questions. Review of Systems Date Seen by Provider: Oct 10, 2016 Time Seen by Provider: 10:05 Cardiovascular: No: Chest Pain Gastrointestinal: No: Abdominal Pain Objective Exam Last Set of Vital Signs Vital Signs Date Time Temp Pulse Resp B/P (MAP) Pulse Ox O2 Delivery O2 Flow Rate FiO2 10/10/16 18:00 45 11 111/56 98 Mechanical Ventilator 45.00 10/10/16 16:22 45 10/10/16 12:00 96.7 Capillary Refill : Less Than 3 Seconds I&O Intake and Output 10/09/16 23:59 Intake Total 1992.5 ml Output Total 5100 ml Balance -3107.5 ml Intake Oral 0 ml IV Total 1189.5 ml Tube Feeding 313 ml Other 490 ml Output Urine Total 5100 ml # Bowel Movements 7 General: Alert HEENT: PERRLA, Mucous Memb Moist/[place] Lungs: Other (Crackles w/o wheezing, improving) Heart: Regular Rate, No Murmurs Abdomen: Normal Bowel Sounds, Soft, No Tenderness Extremities: Other (+ swelling and edema) Skin: No Rashes, No Breakdown Results/Procedures Lab Laboratory Tests 10/09/16 23:45: Glucometer 239H 10/10/16 04:09: White Blood Count 7.9, Red Blood Count 3.42L, Hemoglobin 9.7L, Hematocrit 31L, Mean Corpuscular Volume 90, Mean Corpuscular Hemoglobin 28, Mean Corpuscular Hemoglobin Concent 31L, Red Cell Distribution Width 15.2H, Platelet Count 244, Mean Platelet Volume 9.7, Neutrophils (%) (Auto) 89H, Lymphocytes (%) (Auto) 8L , Monocytes (%) (Auto) 3, Eosinophils (%) (Auto) 0, Basophils (%) (Auto) 0, Neutrophils # (Auto) 7.0, Lymphocytes # (Auto) 0.6L, Monocytes # (Auto) 0.3, Eosinophils # (Auto) 0.0, Basophils # (Auto) 0.0, Sodium Level 144, Potassium Level 4.2, Chloride Level 110H, Carbon Dioxide Level 25, Anion Gap 9, Blood Urea Nitrogen 29H, Creatinine 0.66, Estimat Glomerular Filtration Rate > 60, BUN /Creatinine Ratio 44, Glucose Level 306H, Calcium Level 7.9L, Phosphorus Level 3.7, Magnesium Level 2.5H, Triglycerides Level 375H 10/10/16 04:10: Blood Gas Puncture Site JOHANNA, Blood Gas Patient Temperature 96.0, Arterial Blood pH 7.44H, Arterial Blood Partial Pressure CO2 41, Arterial Blood Partial Pressure O2 84, Arterial Blood HCO3 28H, Arterial Blood Total CO2 29.1, Arterial Blood Oxygen Saturation 97, Arterial Blood Base Excess 3.6H, Afshin Test ART LINE, Blood Gas Ventilator Setting YES, Blood Gas Inspired Oxygen 45% 10/10/16 13:45: Blood Gas Puncture Site A LINE, Blood Gas Patient Temperature 96.7, Arterial Blood pH 7.52H, Arterial Blood Partial Pressure CO2 34L, Arterial Blood Partial Pressure O2 107H, Arterial Blood HCO3 28H, Arterial Blood Total CO2 29.0, Arterial Blood Oxygen Saturation 99, Arterial Blood Base Excess 4.7H, Afshin Test ART LINE, Blood Gas Ventilator Setting YES, Blood Gas Inspired Oxygen 45% 10/10/16 16:11: Glucometer 214H Microbiology 10/01/16 Blood Culture - Final, Complete No growth 10/08/16 C. difficile GDH Antigen & Toxins - Preliminary, Resulted 10/03/16 Mycobacterial Culture - Preliminary, Resulted Radiology Date of Exam:10/01/16 CHEST 1 VIEW, AP/PA ONLY INDICATION: Shortness of breath, COPD, asthma. COMPARISON STUDY: Chest from 07/08/2015. FINDINGS: Portable semiupright view of the chest demonstrates patchy infiltrates throughout the right lung and in the left base. Heart size is upper limits of normal. Vascularity is normal. There are no pleural effusions. IMPRESSION: There are bilateral pulmonary infiltrates. Assessment/Plan Assessment/Plan Admission Dx SEPTIC SHOCK COMMUNITY ACQUIRED PNEUMONIA ACUTE ON CHRONIC RESPIRATORY FAILURE DIABETES MELLITUS TYPE 2, NON INSULIN REQUIRING Plan SEPTIC SHOCK ADM: protocol initiated with fluid boluses, has received Levaquin (PCN allergy) . will monitor in ICU for now. Have consulted Dr Reid who told me he thinks intubation may be needed - as it has multiple times in dar past. BLood cultures pending. 10/02 - resolved. holding her BP. appears to have averted intubation. cultures still pending. COMMUNITY ACQUIRED PNEUMONIA ACUTE ON CHRONIC RESPIRATORY FAILURE, considered for ARDS ADM: On BiPAP now, will see how she does over the next few hours to see if intubation is required. Levaquin right now, cultures pending. IV steroids, MAT protocol. 10/02 - continue BiPAP. levaquin day 2; MAT protocol. pt is in fact not on steroids. cultures pending - sputum is haemophilus. 10/03 - B-lactamas Haemophilus. DC levaquin, start merrem. 10/04 - resp cx also grew yeast - diflucan started today. vanc also added due to another fever today. merrem day 2. vent to be managed by Dr Plaza with phone assistance from Dr Reid and also eICU. I will be available to come in over the weekend if necessary. 10/05 - pH 7.27 this AM, Dr Reid notified, repeat ABG in AM, Afebrile since yesterday AM, Continue Diflucan, Merropenum and Vanc 10/06- No changes in antiboitics today 10/08 - Remains intubated but seems to be moving air better, minimal change in CXR 10/10 - Working on weaning the vent today per Dr Reid HTN: Uncontrolled 10/07 - Started Norvasc per tube, will continue to monitor blood pressures, if they remain elevated will restart Lisinopril 10/08 - Restart lisinopril and schedule lasix x 4 doses to control fluid overload 10/09 - Metoprolol added today by Dr Reid DIABETES MELLITUS TYPE 2, NON INSULIN REQUIRING ADM: SSI per ICU protocol for now. NPO due to BiPAP. 10/02 - no change, BS above goal, will monitor for another 24h, may need more aggressive regimen 10/03 - maintain ICU SSI 10/04 - improved, continue ICU SSI 10/05 - Blood sugars at goal, Continue ICU SSI ACUTE KIDNEY INJURY: Resolved ANEMIA, Normcytic 10/04 - 1 unit PRBCs today 10/06- 2 untis pRBCs given today for hgb of 7.8 10/08 - Hgb improved and stable, will continue to monitor and give iron when ok with Dr Reid Fluid Overload 10/06- Patient has gain over 10 kg since admission, likely fluid, Gave lasix 40 mg IV before and after blood was administered today, will watch fluid status closely 10/07 - Lasix 40 mg giving today for fluid overload 10/08 - Gave 1 dose of lasix last night, patient diuresed well, good UOP, weight trending down HyperNa 10/09 - Free water flushes started today and IVF changed to 1/2NS, will continue to monitor DVT Proph: Lovenox 40 GFR>40 GI proph: continue home regimen. DISPOSITION 10/04 - UR asking if patient is LTAC appropriate. we will see how she does this weekend and make a decision from there. no plans to extubate this weekend. 10/05 - Patient continues to need full mechanical ventilation 10/09 - - [place] [facility] to evaluate patient Diagnosis/Problems: Clinical Quality Measures DVT/VTE Risk/Contraindication: Risk Factor Score Per Nursin RFS Level Per Nursing on Admit: 4+=Very High RICHIE PLAZA MD Oct 10, 2016 19:16
[2016-10-10] MEDS: ENOXAPARIN 40 MG/0.4 ML (LOVENOX) SYR SC SCH (21:30)
[2016-10-10] MEDS: CATHETER FLUSH 10 ML SYR IV PRN (21:31)
[2016-10-11] VITALS (17 sets, daily range): BP systolic 82–160; BP diastolic 40–80
[2016-10-11] MEDS: inSUlin (REGULAR) HUMAN 1 UNIT/0.01 ML (CHARGE PER UNIT) SC SCH ×3 (00:10→13:00)
[2016-10-11] MEDS: MEROPENEM 500 MG in NS (IVPB) 100 ML IV SCH ×3 (00:11→13:00)
[2016-10-11] MEDS ORDERED: NS (IVPB) 50 ML ONE ×2 (01:25→04:24)
[2016-10-11] MEDS: DEXMEDETOMIDINE INJECTION 400 MCG in NS (IVPB) 100 ML IV SCH ×3 (01:35→09:12)
[2016-10-11] MEDS: RT-ALBUTEROL/IPRATROPIUM 3 ML (DUONEB) VIAL IH SCH ×3 (02:28→10:04)
[2016-10-11] MEDS: PROPOFOL DRIP (ICU) 100 ML IV SCH (03:02)
[2016-10-11 04:54] LABS: ABG BASE EXCESS 5.1 MMOL/L (-2.5-2.5); ABG HCO3 29 MMOL/L (23-27); ABG OXYGEN SATURATION 99 % (94-100); ABG PCO2 41 MMHG (35-45); ABG PH 7.46 (7.37-7.43); ABG PO2 133 MMHG (79-93); ABG TCO2 30.5 MMOL/L (21.0-31.0)
[2016-10-11 04:56] LABS: ALLENS TEST YES-POS
[2016-10-11 04:57] LABS: PATIENT TEMP 96.4
[2016-10-11 05:15] LABS: ANION GAP 8 MMOL/L (5-14); BLOOD UREA NITROGEN 20 MG/DL (7-18); BUN/CREATININE RATIO 57; GFR ESTIMATED > 60; PHOSPHORUS 2.4 MG/DL (2.3-4.7); SODIUM 147 MMOL/L (135-145); TRIGLYCERIDES 176 MG/DL (<150)
[2016-10-11] MEDS: KCL 20 MEQ TAB (K-DUR) PO SCH (05:43)
[2016-10-11 05:56] LABS: BASOPHILS % (AUTO) 0 % (0-10); EOSINOPHILS % (AUTO) 1 % (0-10); LYMPHOCYTES # (AUTO) 1.7 X 10^3 (1.0-4.0); LYMPHOCYTES % (AUTO) 28 % (12-44); MEAN CORPUSCULAR HEMOGLOBIN 28 PG (25-34); MEAN CORPUSCULAR HGB CONC 32 G/DL (32-36); MEAN CORPUSCULAR VOLUME 89 FL (80-99); MEAN PLATELET VOLUME 9.7 FL (7.4-10.4); MONOCYTES # (AUTO) 0.4 X 10^3 (0.0-1.0); MONOCYTES % (AUTO) 7 % (0-12); NEUTROPHILS # (AUTO) 3.9 X 10^3 (1.8-7.8); NEUTROPHILS % (AUTO) 65 % (42-75); PLATELET COUNT 259 10^3/uL (130-400); RED BLOOD COUNT 3.64 10^6/uL (4.35-5.85); RED CELL DISTRIBUTION WIDTH 14.8 % (10.0-14.5)
[2016-10-11 06:14] LABS: CALCIUM 7.5 MG/DL (8.5-10.1); CARBON DIOXIDE 25 MMOL/L (21-32); CHLORIDE 107 MMOL/L (98-107); CREATININE SERUM 0.62 MG/DL (0.60-1.30); GLUCOSE 80 MG/DL (70-105); POTASSIUM 3.4 MMOL/L (3.6-5.0)
[2016-10-11] MEDS: 1/2 NS W/KCL 20 MEQ/L 1,000 ML IV SCH (06:30)
[2016-10-11 06:32] LABS: MAGNESIUM 2.5 MG/DL (1.8-2.4)
[2016-10-11] MEDS: POTASSIUM CL 10MEQ/50ML IVPB 50 ML IV SCH ×3 (06:37→07:41)
[2016-10-11] MEDS: MAGNESIUM 1 GM/100 ML IVPB 100 ML IV SCH (06:37)
--- NOTE | 2016-10-11 07:28 | Pulmonary Progress Note ---
Subjective Time Seen by Provider: 07:31 Subjective/Events-last exam PT appears to be doing better. Exam Exam Vital Signs Date Time Temp Pulse Resp B/P (MAP) Pulse Ox O2 Delivery O2 Flow Rate FiO2 10/11/16 06:57 48 24 97 40 10/11/16 06:00 48 14 111/56 98 Mechanical Ventilator 45.00 10/11/16 05:10 45 21 98 45 10/11/16 05:00 45 17 90/51 98 Mechanical Ventilator 45.00 10/11/16 04:00 Mechanical Ventilator 45 10/11/16 04:00 46 20 85/47 98 Mechanical Ventilator 45.00 10/11/16 04:00 96.4 10/11/16 03:59 46 23 98 45 10/11/16 03:02 45 10/11/16 03:00 43 14 91/50 98 Mechanical Ventilator 45.00 10/11/16 02:29 42 21 98 45 10/11/16 02:00 42 18 99/54 98 Mechanical Ventilator 45.00 10/11/16 01:00 43 18 99/56 98 Mechanical Ventilator 45.00 10/11/16 01:00 42 10/11/16 00:50 44 23 98 45 10/11/16 00:00 Mechanical Ventilator 45 10/10/16 23:00 45 23 96/52 98 Mechanical Ventilator 45.00 10/10/16 22:00 48 15 102/67 98 Mechanical Ventilator 45.00 10/10/16 21:54 47 23 98 45 10/10/16 21:00 49 17 99/53 98 Mechanical Ventilator 45.00 10/10/16 20:00 96.8 10/10/16 20:00 Mechanical Ventilator 45 10/10/16 20:00 50 23 112/57 98 Mechanical Ventilator 45.00 10/10/16 19:50 Mechanical Ventilator 10/10/16 19:13 50 28 98 45 10/10/16 19:00 47 33 108/61 98 Mechanical Ventilator 45.00 10/10/16 19:00 48 10/10/16 18:00 45 11 111/56 98 Mechanical Ventilator 45.00 10/10/16 17:12 Mechanical Ventilator 10/10/16 17:00 48 13 100/53 98 Mechanical Ventilator 45.00 10/10/16 16:22 46 23 97 45 10/10/16 16:00 Mechanical Ventilator 45 10/10/16 16:00 48 17 105/51 97 Mechanical Ventilator 45.00 10/10/16 15:00 64 23 129/72 96 Mechanical Ventilator 45.00 10/10/16 14:41 69 26 97 45 10/10/16 14:37 71 26 97 45 10/10/16 14:00 72 16 170/73 97 Mechanical Ventilator 45.00 10/10/16 13:00 70 16 167/78 97 Mechanical Ventilator 45.00 10/10/16 13:00 70 10/10/16 12:21 70 28 100 45 10/10/16 12:00 Mechanical Ventilator 45 10/10/16 12:00 96.7 57 20 166/67 99 Mechanical Ventilator 45.00 10/10/16 11:00 63 16 160/85 97 Mechanical Ventilator 45.00 10/10/16 10:28 64 24 98 45 10/10/16 10:00 57 26 161/88 97 Mechanical Ventilator 45.00 10/10/16 09:00 57 10 150/72 97 Mechanical Ventilator 45.00 10/10/16 08:33 55 24 98 45 10/10/16 08:30 96.5 52 20 156/69 98 Mechanical Ventilator 45.00 10/10/16 08:00 Mechanical Ventilator 45 10/10/16 08:00 56 27 139/76 97 Mechanical Ventilator 45.00 I & O 10/11/16 07:00 Intake Total 1859 ml Output Total 4125 ml Balance -2266 ml General Appearance: WD/WN, Mild Distress HEENT: PERRL/EOMI, TMs Normal, Normal ENT Inspection, Pharynx Normal Neck: Normal Inspection Respiratory: No Accessory Muscle Use, No Respiratory Distress, Wheezing, Other (Delayed forced expiratory phase, barking cough) Cardiovascular: Regular Rate, Rhythm, No Murmur, Other (Mild lower extremity edema) Capillary Refill: Less Than 3 Seconds Gastrointestinal: non tender, soft, no organomegaly, abnormal bowel sounds, distended Extremity: Pedal Edema (Mild lower extremity edema equal bilaterally) Neurologic/Psychiatric: Alert, Oriented x3, No Motor/Sensory Deficits, Normal Mood/Affect, biopharmaceutical rep II-XII Norm as Tested Skin: Normal Color, Warm/Dry Lymphatic: No Adenopathy Results Lab Laboratory Tests 10/09/16 15:15 10/10/16 04:09 10/11/16 04:40 10/11/16 05:30 Assessment/Plan Assessment/Plan --Acute on Chronic respiratory failure - appears to be doing better today - Merrem Eraxis -continue precedex - Fentanyl, Haldo BID -TF with pulmicare - Continuous CVP monitoring CVP -Pneumonia with respiratory failure with s/p ARDS Pa02/Fi02 =295 -Continue SVNs, Abx -Change vent to SIMV/PS /11/05 -Hines cultures reviewed bradycardia - secondary to Lopressor PO -Hold lopressor for HR <60 and SBP <100 Hypertension - increase lopressor , norvasc, PRN hydralazine -Obesity Hx of vocal cord paralysis Labs and radiology reviewed 60min spent with patient and medical team. Pt is transferring to [facility] today. Clinical Quality Measures DVT/VTE Risk/Contraindication: Risk Factor Score Per Nursin RFS Level Per Nursing on Admit: 4+=Very High MILE SUMMERS DO Oct 11, 2016 07:28
--- NOTE | 2016-10-11 07:46 | Diagnostic Imaging Report ---
INDICATION: Ventilated patient. Dyspnea. COMPARISON: 10/10/2016 FINDINGS: Single frontal radiographic view of the chest was obtained and demonstrates indwelling endotracheal tube with tip at clavicular heads. Enteric tube tip terminates in the stomach. Lungs continue to show diffuse patchy and confluent bilateral infiltrates. Overall, aeration is stable. There is no new large effusion or pneumothorax. Cardiac silhouette is partially obscured, but appears stable as well. Bony structures show no gross acute abnormalities. IMPRESSION: 1. Stable exam of the chest showing diffuse patchy and confluent alveolar opacities. Findings could be on the basis of edema, pneumonia, or possible ARDS. 2. Lines and tubes as above. Dictated by: Dictated on workstation # [id number]
[2016-10-11] MEDS: morphine INJ 4 MG/ML 1 ML (VIAL/SYRINGE) IVP PRN (08:39)
[2016-10-11] MEDS: FUROSEMIDE 40 MG/4 ML INJ (LASIX) IVP SCH (08:39)
[2016-10-11] MEDS: PANTOPRAZOLE 40 MG/10 ML (PROTONIX) VIAL IV SCH (08:40)
[2016-10-11] MEDS: METOCLOPRAMIDE INJ 10 MG/2 ML (REGLAN) IVP SCH (08:40)
[2016-10-11] MEDS: amLODIPine 5 MG (NORVASC) TAB PO SCH (08:40)
[2016-10-11] MEDS: ARTIFICAL TEARS 0.4 ML UNIT DOSE (REFRESH PLUS) OU SCH (08:41)
[2016-10-11] MEDS: lisINopril 10 MG (PRINIVIL) TAB PO SCH (08:41)
[2016-10-11] MEDS: HALOPERIDOL 5 MG/ML (HALDOL) AMP IV SCH (08:41)
[2016-10-11] MEDS ORDERED: meTOprolol TARTRATE 25 MG (LOPRESSOR) TABLET PO SCH (09:00)
[2016-10-11 09:08] LABS: ABG BASE EXCESS 5.2 MMOL/L (-2.5-2.5); ABG HCO3 29 MMOL/L (23-27); ABG OXYGEN SATURATION 97 % (94-100); ABG PCO2 37 MMHG (35-45); ABG PO2 85 MMHG (79-93); ABG TCO2 29.7 MMOL/L (21.0-31.0)
--- NOTE | 2016-10-11 11:12 | Physical Therapy Daily Note ---
PT Daily Note-Current Subjective Pt. intubated, shakes head yes and makes eye contact that she is willing to exercise, move LEs etc Pain Numeric Pain Scale: 0-No Pain Mental Status Patient Orientation: Eyes Open Attachments: Oxygen, Ventilator, IV Transfers Functional [place] Measure 0=Not Assessed/NA 4=Minimal Assistance 1=Total Assistance 5=Supervision or Setup 2=Maximal Assistance 6=Modified [place] 3=Moderate Assistance 7=Complete IndependenceIRFPAI Quality Coding Scale 6 Independent with activity with or without an assistive device 5 Patient requires set up or clean up by helper. Patient completes activity by themselves 4 Supervision or touching assist (CGA). [place] provide cues , steadying assist 3 The helper provides less than half the effort to complete the activity 2 The helper provides more than half the effort to complete the activity 1 Dependent. The helper does all the effort to complete an activity 7 Patient refused to complete or attempt activity 9 The patient did not perform the activity before the current illness or injury 88 Not attempted due to Medical conditions or safety concerns Exercises Supine Ex: Bridging, Ankle pumps, Quad Set, Glut sets, Heel Slides, Short Arc Quads, Scooting, Straight leg raise, Hip abd/add Supine Reps: 12 Assessment Current Status: Good Progress pt. moving well in bed considering limitations of vent. PT Media Marketing Coordinator Goals Penitentiary Goals PT Penitentiary Goals Time Frame: Oct 16, 2016 Transfers (B,C,W/C) (FIM): 2 PT Plan Treatment/Plan Treatment Plan: Continue Plan of Care Treatment Plan: Bed Mobility, Education, Functional Activity Fadi, Functional Strength, Gait, Safety, Therapeutic Exercise, Transfers Treatment Duration: Oct 16, 2016 Frequency: 6 times per week Estimated Hrs Per Day: .25 hour per day (15-30 min per day) Patient and/or Family Agrees t: Yes (unsure if patient actually agrees to this) Time/GCodes Time In: 1040 Time Out: 1055 Total Billed Treatment Time: 15 Total Billed Treatment 1,EX15m G Codes Necessary: No VON PUGH FUNCTIONAL SUPPORT ANALYST Oct 11, 2016 11:11
[2016-10-11] MEDS: ANIDULAFUNGIN INJECTION 100 MG in NS (IVPB) 100 ML IV SCH (11:45)
--- NOTE | 2016-10-11 12:17 | Progress Note (SOAP) ---
Subjective Subjective/Events-last exam Patient intubated and awake this AM. Answers Y/N questions. Denies any pain. Review of Systems Date Seen by Provider: Oct 11, 2016 Time Seen by Provider: 10:05 General: No Chills HEENT: No Head Aches Cardiovascular: No: Chest Pain Gastrointestinal: No: Abdominal Pain Objective Exam Last Set of Vital Signs Vital Signs Date Time Temp Pulse Resp B/P (MAP) Pulse Ox O2 Delivery O2 Flow Rate FiO2 10/11/16 10:06 67 24 96 40 10/11/16 08:00 Mechanical Ventilator 10/11/16 07:00 96.8 160/54 40.00 Capillary Refill : Less Than 3 Seconds I&O Intake and Output 10/11/16 00:00 Intake Total 3167 ml Output Total 4250 ml Balance -1083 ml IV Total 1514 ml Tube Feeding 1103 ml Other 550 ml Output Urine Total 4150 ml Stool Total 100 ml General: Alert, Other (Intubated) HEENT: Mucous Memb Moist/[place] Neck: No JVD Lungs: Other (+ crackles no wheezing, comfortable breathing on vent) Heart: Regular Rate, No Murmurs Abdomen: Normal Bowel Sounds, Soft, No Tenderness Extremities: Other (Edema 1+ (improving)) Results/Procedures Lab Laboratory Tests 10/10/16 13:45: Blood Gas Puncture Site A LINE, Blood Gas Patient Temperature 96.7, Arterial Blood pH 7.52H, Arterial Blood Partial Pressure CO2 34L, Arterial Blood Partial Pressure O2 107H, Arterial Blood HCO3 28H, Arterial Blood Total CO2 29.0, Arterial Blood Oxygen Saturation 99, Arterial Blood Base Excess 4.7H, Afshin Test ART LINE, Blood Gas Ventilator Setting YES, Blood Gas Inspired Oxygen 45% 10/10/16 16:11: Glucometer 214H 10/11/16 00:10: Glucometer 87 10/11/16 04:40: Sodium Level 147H, Potassium Level 3.4L, Chloride Level 107, Carbon Dioxide Level 25, Anion Gap 8, Blood Urea Nitrogen 20H, Creatinine 0.62, Estimat Glomerular Filtration Rate > 60, BUN/Creatinine Ratio 57, Glucose Level 80, Calcium Level 7.5L, Phosphorus Level 2.4, Magnesium Level 2.5H, Triglycerides Level 176H 10/11/16 04:50: Blood Gas Puncture Site R RAD, Blood Gas Patient Temperature 96.4, Arterial Blood pH 7.46H, Arterial Blood Partial Pressure CO2 41, Arterial Blood Partial Pressure O2 133H, Arterial Blood HCO3 29H, Arterial Blood Total CO2 30.5, Arterial Blood Oxygen Saturation 99, Arterial Blood Base Excess 5.1H, Afshin Test YES-POS, Blood Gas Ventilator Setting YES, Blood Gas Inspired Oxygen UNKNOWN 10/11/16 05:30: White Blood Count 6.0, Red Blood Count 3.64L, Hemoglobin 10.2L, Hematocrit 32L, Mean Corpuscular Volume 89, Mean Corpuscular Hemoglobin 28, Mean Corpuscular Hemoglobin Concent 32, Red Cell Distribution Width 14.8H, Platelet Count 259, Mean Platelet Volume 9.7, Neutrophils (%) (Auto) 65, Lymphocytes (%) (Auto) 28, Monocytes (%) (Auto) 7, Eosinophils (%) (Auto) 1, Basophils (%) (Auto) 0, Neutrophils # (Auto) 3.9, Lymphocytes # (Auto) 1.7, Monocytes # (Auto) 0.4, Eosinophils # (Auto) 0.0, Basophils # (Auto) 0.0 10/11/16 09:00: Blood Gas Puncture Site art line, Blood Gas Patient Temperature 98.0, Arterial Blood pH 7.50H, Arterial Blood Partial Pressure CO2 37, Arterial Blood Partial Pressure O2 85, Arterial Blood HCO3 29H, Arterial Blood Total CO2 29.7, Arterial Blood Oxygen Saturation 97, Arterial Blood Base Excess 5.2H, Afshin Test art line, Blood Gas Ventilator Setting YES, Blood Gas Inspired Oxygen 40% Microbiology 10/01/16 Blood Culture - Final, Complete No growth 10/08/16 C. difficile GDH Antigen & Toxins - Final, Complete 10/03/16 Mycobacterial Culture - Preliminary, Resulted Radiology Date of Exam:10/01/16 CHEST 1 VIEW, AP/PA ONLY INDICATION: Shortness of breath, COPD, asthma. COMPARISON STUDY: Chest from 07/08/2015. FINDINGS: Portable semiupright view of the chest demonstrates patchy infiltrates throughout the right lung and in the left base. Heart size is upper limits of normal. Vascularity is normal. There are no pleural effusions. IMPRESSION: There are bilateral pulmonary infiltrates. Assessment/Plan Assessment/Plan Admission Dx SEPTIC SHOCK COMMUNITY ACQUIRED PNEUMONIA ACUTE ON CHRONIC RESPIRATORY FAILURE DIABETES MELLITUS TYPE 2, NON INSULIN REQUIRING Plan SEPTIC SHOCK ADM: protocol initiated with fluid boluses, has received Levaquin (PCN allergy) . will monitor in ICU for now. Have consulted Dr Reid who told me he thinks intubation may be needed - as it has multiple times in dar past. BLood cultures pending. 10/02 - resolved. holding her BP. appears to have averted intubation. cultures still pending. COMMUNITY ACQUIRED PNEUMONIA ACUTE ON CHRONIC RESPIRATORY FAILURE, considered for ARDS ADM: On BiPAP now, will see how she does over the next few hours to see if intubation is required. Levaquin right now, cultures pending. IV steroids, MAT protocol. 10/02 - continue BiPAP. levaquin day 2; MAT protocol. pt is in fact not on steroids. cultures pending - sputum is haemophilus. 10/03 - B-lactamas Haemophilus. DC levaquin, start merrem. 10/04 - resp cx also grew yeast - diflucan started today. vanc also added due to another fever today. merrem day 2. vent to be managed by Dr Plaaz with phone assistance from Dr Reid and also eICU. I will be available to come in over the weekend if necessary. 10/05 - pH 7.27 this AM, Dr Reid notified, repeat ABG in AM, Afebrile since yesterday AM, Continue Diflucan, Merropenum and Vanc 10/06- No changes in antiboitics today 10/08 - Remains intubated but seems to be moving air better, minimal change in CXR 10/10 - Working on weaning the vent today per Dr Reid HTN: Uncontrolled 10/07 - Started Norvasc per tube, will continue to monitor blood pressures, if they remain elevated will restart Lisinopril 10/08 - Restart lisinopril and schedule lasix x 4 doses to control fluid overload 10/09 - Metoprolol added today by Dr Reid 10/11 - Had a few episodes of hypoHTN overnight, continue to monitor DIABETES MELLITUS TYPE 2, NON INSULIN REQUIRING ADM: SSI per ICU protocol for now. NPO due to BiPAP. 10/02 - no change, BS above goal, will monitor for another 24h, may need more aggressive regimen 10/03 - maintain ICU SSI 10/04 - improved, continue ICU SSI 10/05 - Blood sugars at goal, Continue ICU SSI ACUTE KIDNEY INJURY: Resolved ANEMIA, Normcytic 10/04 - 1 unit PRBCs today 10/06- 2 untis pRBCs given today for hgb of 7.8 10/08 - Hgb improved and stable, will continue to monitor and give iron when ok with Dr Reid Fluid Overload 10/06- Patient has gain over 10 kg since admission, likely fluid, Gave lasix 40 mg IV before and after blood was administered today, will watch fluid status closely 10/07 - Lasix 40 mg giving today for fluid overload 10/08 - Gave 1 dose of lasix last night, patient diuresed well, good UOP, weight trending down HyperNa 10/09 - Free water flushes started today and IVF changed to 1/2NS, will continue to monitor 10/11 - Resolved today DVT Proph: Lovenox 40 GFR>40 GI proph: continue home regimen. DISPOSITION 10/04 - UR asking if patient is LTAC appropriate. we will see how she does this weekend and make a decision from there. no plans to extubate this weekend. 10/05 - Patient continues to need full mechanical ventilation 10/09 - [place] to evaluate patient 10/11 - Plans to transfer patient to [facility] today Diagnosis/Problems: Clinical Quality Measures DVT/VTE Risk/Contraindication: Risk Factor Score Per Nursin RFS Level Per Nursing on Admit: 4+=Very High RICHIE PLAZA MD Oct 11, 2016 12:17
--- NOTE | 2016-10-11 12:17 | Discharge Summary ---
Diagnosis/Chief Complaint Date of Admission Oct 01, 2016 at 06:28 Date of Discharge Admission Diagnosis Admission Diagnosis SEPTIC SHOCK COMMUNITY ACQUIRED PNEUMONIA ACUTE ON CHRONIC RESPIRATORY FAILURE DIABETES MELLITUS TYPE 2, NON INSULIN REQUIRING Chief Complaint/HPI Chief Complaint/HPI 66yo woman well known to [facility] presents with longstanding history of respiratory failure, vocal cord dysfunction, COPD, and morbid obesity. Patient came to ER with complaints of barking cough and difficulty breathing worsening in dar past few days. Subjective fever at home. States she has been using her home inhalers but sx continued to worsen, prompting her to seek treatment. Of note, her history is somewhat abbreviated by the BiPAP. Discharge Summary-Simple/Stand Consultations Zelalem Reid DO Discharge Physical Examination Allergies: Coded Allergies: dornase lloyd (Verified Allergy, Unknown, RAPID HEART BEAT, 05/25/15) Penicillins (Verified Adverse Reaction, Mild, NAUSEA, 05/25/15) codeine (Verified Adverse Reaction, Mild, NAUSEA, PT TAKES HYDROCODONE AT HOME, 05/25/15) Vitals & I&Os Vital Sign - Last 12Hours Date Time Temp Pulse Resp B/P (MAP) Pulse Ox O2 Delivery O2 Flow Rate FiO2 10/11/16 10:06 67 24 96 40 10/11/16 08:00 Mechanical Ventilator 10/11/16 07:00 96.8 160/54 40.00 Intake and Output 10/11/16 00:00 Intake Total 889 ml Output Total 3150 ml Balance -2261 ml Hospital Course See final discharge diagnosis. Radiology Reviewed Date of Exam:10/01/16 CHEST 1 VIEW, AP/PA ONLY INDICATION: Shortness of breath, COPD, asthma. COMPARISON STUDY: Chest from 07/08/2015. FINDINGS: Portable semiupright view of the chest demonstrates patchy infiltrates throughout the right lung and in the left base. Heart size is upper limits of normal. Vascularity is normal. There are no pleural effusions. IMPRESSION: There are bilateral pulmonary infiltrates. Discharge Instructions to patient/family Please see electonic discharge instructions given to patient. Discharge Medications Reviewed and agree with Discharge Medication list on patient's Discharge Instruction sheet Clinical Quality Measures DVT/VTE Risk/Contraindication: Risk Factor Score Per Nursin RFS Level Per Nursing on Admit: 4+=Very High RICHIE ALVAREZ MD Oct 11, 2016 12:17
== END 2016-10-11 11:45 | DRG 853 ==
LOC: EDUNIT# 03:58 → ER 04:00 → 4TH 06:28 → ICU 06:29
PROVIDERS: ADMIT Pediatrics; ATTEND Pediatrics
PROC: 0B9D8ZX Drainage of Right Middle Lung Lobe, Via Natural or Artificial Opening Endoscopic, Diagnostic (ICD-10-PCS; principal; 2016-10-03)
PROC: 5A1955Z Respiratory Ventilation, Greater than 96 Consecutive Hours (ICD-10-PCS; 2016-10-03)
DX: A41.9 Sepsis, unspecified organism (principal); R65.21 Severe sepsis with septic shock; J44.0 Chronic obstructive pulmonary disease with (acute) lower respiratory infection; J14 Pneumonia due to Hemophilus influenzae; J44.1 Chronic obstructive pulmonary disease with (acute) exacerbation; J96.20 Acute and chronic respiratory failure, unspecified whether with hypoxia or hypercapnia; N17.9 Acute kidney failure, unspecified; K56.7 Ileus, unspecified; E87.1 Hypo-osmolality and hyponatremia; E87.6 Hypokalemia; E87.70 Fluid overload, unspecified; E83.42 Hypomagnesemia; D64.89 Other specified anemias; J98.09 Other diseases of bronchus, not elsewhere classified; J45.909 Unspecified asthma, uncomplicated; E11.65 Type 2 diabetes mellitus with hyperglycemia; E11.42 Type 2 diabetes mellitus with diabetic polyneuropathy; I25.10 Atherosclerotic heart disease of native coronary artery without angina pectoris; I10 Essential (primary) hypertension; E78.00 Pure hypercholesterolemia, unspecified; G47.33 Obstructive sleep apnea (adult) (pediatric); E66.01 Morbid (severe) obesity due to excess calories; J38.00 Paralysis of vocal cords and larynx, unspecified; M06.9 Rheumatoid arthritis, unspecified; Z99.81 Dependence on supplemental oxygen; Z87.891 Personal history of nicotine dependence; Z68.35 Body mass index [BMI] 35.0-35.9, adult; Z95.5 Presence of coronary angioplasty implant and graft; Z79.84 Long term (current) use of oral hypoglycemic drugs
CPT/HCPCS: 36415; 36569; 71010; 74000; 76937; 80048; 80053; 80202; 81000; 82274; 82728; 82805; 82962; 83540; 83605; 83735; 83880; 84100; 84478; 84484; 85007; 85025; 85027; 85045; 85610; 85730; 86141; 86850; 86900; 86901; 86920; 87040; 87070; 87077; 87101; 87116; 87205; 87324; 87449; 93005; 93041; 93306; 94002; 94003; 94640; 94660; 94799; 96361; 96365; 96375

== ENCOUNTER → 2016-11-14 | Outpatient (CLI) | payer MEDICARE, MEDICAID ==
[~2016-11-14] MED LIST changes: +ALIR75PE SC; +AZIT250T12 PO; -AZIT250T5 PO; +BENZ-36 PO; -BENZ100C23 PO; +CYCL1DRO OU; +GABA600T2 PO; +METF500T8 PO; -METO-270 PO; -METO-272 PO; +METO-370 PO; +METO-387 PO; +PANT40TA3 PO
[2016-11-14 08:20] LABS: BASOPHILS % (AUTO) 0 % (0-10); EOSINOPHILS # (AUTO) 0.1 10^3/uL (0.0-0.3); EOSINOPHILS % (AUTO) 2 % (0-10); LYMPHOCYTES # (AUTO) 2.5 X 10^3 (1.0-4.0); LYMPHOCYTES % (AUTO) 41 % (12-44); MEAN CORPUSCULAR HEMOGLOBIN 28 PG (25-34); MEAN CORPUSCULAR HGB CONC 34 G/DL (32-36); MEAN CORPUSCULAR VOLUME 83 FL (80-99); MEAN PLATELET VOLUME 9.8 FL (7.4-10.4); MONOCYTES # (AUTO) 0.5 X 10^3 (0.0-1.0); MONOCYTES % (AUTO) 8 % (0-12); NEUTROPHILS % (AUTO) 49 % (42-75); PLATELET COUNT 224 10^3/uL (130-400); RED BLOOD COUNT 4.14 10^6/uL (4.35-5.85); RED CELL DISTRIBUTION WIDTH 15.3 % (10.0-14.5); WHITE BLOOD COUNT 6.2 10^3/uL (4.3-11.0)
[2016-11-14 08:37] LABS: ERYTHROCYTE SEDIMENTATION RATE 8 MM/HR (0-30)
[2016-11-14 08:41] LABS: ALANINE AMINOTRANSFERASE 23 U/L (0-55); ALBUMIN 4.2 GM/DL (3.2-4.5); ANION GAP 11 MMOL/L (5-14); ASPARTATE AMINO TRANSFERASE 22 U/L (5-34); BILIRUBIN,TOTAL 0.5 MG/DL (0.1-1.0); BLOOD UREA NITROGEN 14 MG/DL (7-18); BUN/CREATININE RATIO 19; CALCIUM 9.6 MG/DL (8.5-10.1); CARBON DIOXIDE 24 MMOL/L (21-32); CHLORIDE 107 MMOL/L (98-107); CHOLESTEROL 145 MG/DL (< 200); CREATININE SERUM 0.75 MG/DL (0.60-1.30); DIRECT LDL 66 MG/DL (1-129); GFR ESTIMATED > 60; GLUCOSE 111 MG/DL (70-105); MAGNESIUM 1.9 MG/DL (1.8-2.4); SODIUM 142 MMOL/L (135-145); TOTAL PROTEIN 6.7 GM/DL (6.4-8.2); TRIGLYCERIDES 299 MG/DL (<150); VLDL CHOLESTEROL 60 MG/DL (5-40)
[2016-11-14 09:01] LABS: THYROID STIMULATING HORMONE 3.68 UIU/ML (0.35-4.94)
== END ==
LOC: LAB 07:50
PROVIDERS: ATTEND Internal Medicine Cardiovascular Disease
DX: R00.2 Palpitations (principal); I65.23 Occlusion and stenosis of bilateral carotid arteries; E11.9 Type 2 diabetes mellitus without complications; G47.33 Obstructive sleep apnea (adult) (pediatric); I25.10 Atherosclerotic heart disease of native coronary artery without angina pectoris; J43.8 Other emphysema; I27.2 Other secondary pulmonary hypertension
CPT/HCPCS: 36415; 80053; 80061; 83735; 84443; 85025; 85652

== ENCOUNTER → 2016-11-14 | Outpatient (CLI) | payer MEDICARE, MEDICAID ==
[~2016-11-14] MED LIST changes: -AZIT250T12 PO; +AZIT250T5 PO; -BENZ-36 PO; +BENZ100C23 PO; +METO-270 PO; +METO-272 PO; -METO-370 PO; -METO-387 PO
== END ==
LOC: CARD 10:24
PROVIDERS: ATTEND Internal Medicine Cardiovascular Disease
DX: R00.2 Palpitations (principal); G47.33 Obstructive sleep apnea (adult) (pediatric); I25.10 Atherosclerotic heart disease of native coronary artery without angina pectoris; I65.23 Occlusion and stenosis of bilateral carotid arteries; J43.8 Other emphysema; E11.9 Type 2 diabetes mellitus without complications; I27.2 Other secondary pulmonary hypertension
CPT/HCPCS: 93225; 93226

== ENCOUNTER 2016-11-27 10:29 | Outpatient (RCR) | payer MEDICARE, MEDICAID | END 2016-11-27 11:42 | disposition home or self-care (01) | PROVIDERS: ATTEND Nurse Practitioner Family | DX: R53.1 Weakness (principal) ==

== ENCOUNTER 2017-03-23 13:06 | Observation (INO) | payer MEDICARE, MEDICAID ==
[~2017-03-23] VITALS: Ht 172.7 cm; Wt 94.3 kg
[~2017-03-23 13:06] MED LIST changes: +AZIT250T12 PO; -AZIT250T5 PO; +BENZ-36 PO; -BENZ100C23 PO; -METO-270 PO; -METO-272 PO; +METO-370 PO; +METO-387 PO
--- OUTSIDE RECORDS SUMMARY | 2017-03-23 13:15 | XMS REPORT ---
Author Author COREY JUAREZ [facility] Address [address] [place] [address] Care Team Providers Care Rewriter Name Role Phone COREY JUAREZ Unavailable PROBLEMS Type Condition ICD9-CM Code [id number] Code Onset Dates Condition Status SNOMED Code Problem Neck pain M54.2 Active 23014643 Problem COPD with acute exacerbation J44.1 Active 019402319 Problem Fall from bed, sequela W06.XXXS Active 83571380 Problem Weakness generalized R53.1 Active 36901975 Problem STACY on CPAP G47.33 Active 35587994 Problem Gastroesophageal reflux disease, esophagitis presence not specified K21.9 Active 288100370 Problem Left wrist tendonitis M77.8 Active 724195453 Problem Muscular deconditioning R29.898 Active 913438891 Problem Epigastric pain R10.13 Active 13897775 Problem Gastroesophageal reflux disease without esophagitis K21.9 Active 953966031 Problem COPD (chronic obstructive pulmonary disease) J44.9 Active 79964022 Problem History of respiratory failure Z87.09 Active 430748457 Problem Hypoxia R09.02 Active 821210029 Problem Chronic pain G89.29 Active 14938165 Problem Anxiety F41.9 Active 38653378 Problem Essential hypertension with goal blood pressure less than 130\/85 I10 Active 29251043 Problem Respiratory distress R06.00 Active 359800804 Problem Depression F32.9 Active 49572340 Problem Type 2 diabetes mellitus with diabetic neuropathy E11.40 Active 26168946 Problem Cervical stenosis of spinal canal M48.02 Active 59958570 ALLERGIES No Information SOCIAL HISTORY Never Assessed PLAN OF CARE VITAL SIGNS MEDICATIONS Unknown Medications RESULTS No Results PROCEDURES No Known procedures IMMUNIZATIONS No Known Immunizations MEDICAL (GENERAL) HISTORY Type Description Date Medical History fibromyalgia Medical History cervical stenosis Medical History chronic obstructive pulmonary disease (COPD) Medical History asthma Medical History hypertension Medical History diabetes mellitus Medical History chronic pain Medical History CAD Medical History Pheripheral Neuropathy Medical History Depression Medical History Essential hypertension, benign Medical History Cervicalgia Medical History Chronic respiratory failure with hypoxia Medical History COlonoscopy 2016 revealed tubular adenoma needs repeat 2020 Medical History Family history of colon cancer Medical History Personal history of colonic polyps Surgical History appendectomy age 8 Surgical History hysterectomy 1982 Surgical History orthopedic surgery rotator cuff 1992 Surgical History cholecystectomy Surgical History anterior fusion C5-C7 performed by Dr. Agee 01/2013 Surgical History colonosocpy with tubular ademoma due 2020 Surgical History trachiotomy- Dr Reid --pt removed 08/2015 Surgical History L. wrist dequevain's tendonitis- Dr Reno 07/2016 Surgical History Pancreatic Scope - Dr. Muñiz 08/2016 Hospitalization History respiratory distress 06/2014 Hospitalization History respiratory distress 01/2015 Hospitalization History respiratory distress 03/2015 Hospitalization History Pneumonia-VC 05/2015 Hospitalization History Tracheitis 06/2015 Hospitalization History x20 respiratory distress 09/2016
--- OUTSIDE RECORDS SUMMARY | 2017-03-23 13:16 | XMS REPORT ---
Author Author CHRISTY REDMAN Organization [facility] Address [address] [place] [address] Care Team Providers Care Nursing Specialist Name Role Phone MANUEL REDMANNETTE Unavailable PROBLEMS Type Condition ICD9-CM Code [id number] Code Onset Dates Condition Status SNOMED Code Problem Neck pain M54.2 Active 69232951 Problem COPD with acute exacerbation J44.1 Active 052611866 Problem Fall from bed, sequela W06.XXXS Active 58133857 Problem Weakness generalized R53.1 Active 23064411 Problem STACY on CPAP G47.33 Active 85072193 Problem Gastroesophageal reflux disease, esophagitis presence not specified K21.9 Active 154844078 Problem Left wrist tendonitis M77.8 Active 313999148 Problem Muscular deconditioning R29.898 Active 718407201 Problem Epigastric pain R10.13 Active 04336337 Problem Gastroesophageal reflux disease without esophagitis K21.9 Active 337477846 Problem COPD (chronic obstructive pulmonary disease) J44.9 Active 52255651 Problem History of respiratory failure Z87.09 Active 998520555 Problem Hypoxia R09.02 Active 159773381 Problem Chronic pain G89.29 Active 02689758 Problem Anxiety F41.9 Active 58676268 Problem Essential hypertension with goal blood pressure less than 130\/85 I10 Active 61188062 Problem Respiratory distress R06.00 Active 404060053 Problem Depression F32.9 Active 41542075 Problem Type 2 diabetes mellitus with diabetic neuropathy E11.40 Active 66491047 Problem Cervical stenosis of spinal canal M48.02 Active 82725849 ALLERGIES No Information SOCIAL HISTORY Never Assessed PLAN OF CARE VITAL SIGNS MEDICATIONS Medication Instructions Dosage Frequency Start Date End Date Duration Status Butrans 5 MCG/HR Transdermal change patch every 7 days- must last 28 days 1 patch to skin Active Hydrocodone-Acetaminophen 10-325 MG Orally 4 times a day prn must lat 28 days take 1 tablet Apr, Active RESULTS No Results PROCEDURES No Known procedures [...] respiratory failure with hypoxia Medical History COlonoscopy 2015 revealed tubular adenoma needs repeat 2020 Medical [...]
--- OUTSIDE RECORDS SUMMARY | 2017-03-23 13:17 | XMS REPORT ---
Author Author COREY JUAREZ [facility] Address [address] [place] [address] Care Team Providers Care Police Pilot Name Role Phone COREY JUAREZ Unavailable PROBLEMS Type Condition ICD9-CM Code [id number] Code Onset Dates Condition Status SNOMED Code Problem Neck pain M54.2 Active 06338761 Problem COPD with acute exacerbation J44.1 Active 998217274 Problem Fall from bed, sequela W06.XXXS Active 38649884 Problem Weakness generalized R53.1 Active 91075693 Problem STACY on CPAP G47.33 Active 70150736 Problem Gastroesophageal reflux disease, esophagitis presence not specified K21.9 Active 947245393 Problem Left wrist tendonitis M77.8 Active 149900359 Problem Muscular deconditioning R29.898 Active 027191865 Problem Epigastric pain R10.13 Active 11153191 Problem Gastroesophageal reflux disease without esophagitis K21.9 Active 288959382 Problem COPD (chronic obstructive pulmonary disease) J44.9 Active 47036817 Problem History of respiratory failure Z87.09 Active 910520385 Problem Hypoxia R09.02 Active 558192466 Problem Chronic pain G89.29 Active 77278145 Problem Anxiety F41.9 Active 50260871 Problem Essential hypertension with goal blood pressure less than 130\/85 I10 Active 01307075 Problem Respiratory distress R06.00 Active 716297039 Problem Depression F32.9 Active 80043311 Problem Type 2 diabetes mellitus with diabetic neuropathy E11.40 Active 24138486 Problem Cervical stenosis of spinal canal M48.02 Active 82211007 ALLERGIES No Information SOCIAL HISTORY Never Assessed PLAN OF CARE VITAL SIGNS MEDICATIONS Medication Instructions Dosage Frequency Start Date End Date Duration Status Hydrocodone-Acetaminophen 10-325 MG Orally 4 times a day prn must lat 28 days take 1 tablet Apr, Jun, 28 days Active Butrans 5 MCG/HR Transdermal change patch every 7 days- must last 28 days 1 patch to skin 28 Active RESULTS No Results PROCEDURES No Known [...]
--- OUTSIDE RECORDS SUMMARY | 2017-03-23 13:18 | XMS REPORT ---
Author Author COREY JUAREZ Organization [facility] Address [address] [place] [address] Care Team Providers Care Warehouse Administrator Name Role Phone COREY JUAREZ Unavailable PROBLEMS Type Condition ICD9-CM Code [id number] Code Onset Dates Condition Status SNOMED Code Problem Anxiety F41.9 Active 09743300 Problem Depression F32.9 Active 143969878 Problem Essential hypertension with goal blood pressure less than 130\/85 I10 Active 68957665 Problem Epigastric pain R10.13 Active 98233073 Problem Gastroesophageal reflux disease without esophagitis K21.9 Active 741829028 Problem Cervical stenosis of spinal canal M48.02 Active 05875806 Problem Neck pain M54.2 Active 31492245 Problem Muscular deconditioning R29.898 Active 598081607 Problem COPD with acute exacerbation J44.1 Active 021852533 Problem Hypoxia R09.02 Active 810601659 Problem Chronic pain G89.29 Active 25163119 Problem STACY on CPAP G47.33 Active 77798009 Problem COPD (chronic obstructive pulmonary disease) J44.9 Active 50340688 Problem History of respiratory failure Z87.09 Active 071077140 Problem Type 2 diabetes mellitus with diabetic neuropathy E11.40 Active 18352450 ALLERGIES No Information SOCIAL HISTORY Never Assessed PLAN OF CARE VITAL SIGNS MEDICATIONS Medication Instructions Dosage Frequency Start Date End Date Duration Status Sucralfate 1 GM Orally 4 times a day 1 tablet with meals and at bedtime 6h Aug, 30 day(s) Active RESULTS No Results PROCEDURES No Known [...]
--- OUTSIDE RECORDS SUMMARY | 2017-03-23 13:18 | XMS REPORT ---
Author Author COREY JUAREZ [facility] Address [address] [place] [address] Care Team Providers Care Head Packager Name Role Phone COREY JUAREZ Unavailable PROBLEMS Type Condition ICD9-CM Code [id number] Code Onset Dates Condition Status SNOMED Code Problem Neck pain M54.2 Active 51343989 Problem COPD with acute exacerbation J44.1 Active 086262016 Problem Fall from bed, sequela W06.XXXS Active 49091892 Problem Weakness generalized R53.1 Active 46670457 Problem STACY on CPAP G47.33 Active 59552191 Problem Gastroesophageal reflux disease, esophagitis presence not specified K21.9 Active 618248445 Problem Left wrist tendonitis M77.8 Active 619356313 Problem Muscular deconditioning R29.898 Active 886560998 Problem Epigastric pain R10.13 Active 70947982 Problem Gastroesophageal reflux disease without esophagitis K21.9 Active 973447585 Problem COPD (chronic obstructive pulmonary disease) J44.9 Active 51086835 Problem History of respiratory failure Z87.09 Active 843429014 Problem Hypoxia R09.02 Active 695094388 Problem Chronic pain G89.29 Active 81233601 Problem Anxiety F41.9 Active 92130603 Problem Essential hypertension with goal blood pressure less than 130\/85 I10 Active 10905496 Problem Respiratory distress R06.00 Active 914605892 Problem Depression F32.9 Active 110532337 Problem Type 2 diabetes mellitus with diabetic neuropathy E11.40 Active 86409929 Problem Cervical stenosis of spinal canal M48.02 Active 33173346 ALLERGIES No Information SOCIAL HISTORY Never Assessed [...]
--- OUTSIDE RECORDS SUMMARY | 2017-03-23 13:18 | XMS REPORT ---
Author Author COREY JUAREZ [facility] Address [address] [place] [address] Care Team Providers Care Associate Account Manager Name Role Phone COREY JUAREZ Unavailable PROBLEMS Type Condition ICD9-CM Code [id number] Code Onset Dates Condition Status SNOMED Code Problem Neck pain M54.2 Active 55173013 Problem COPD with acute exacerbation J44.1 Active 518598707 Problem Fall from bed, sequela W06.XXXS Active 14523259 Problem Weakness generalized R53.1 Active 59215706 Problem STACY on CPAP G47.33 Active 34941564 Problem Gastroesophageal reflux disease, esophagitis presence not specified K21.9 Active 926454225 Problem Left wrist tendonitis M77.8 Active 834408263 Problem Muscular deconditioning R29.898 Active 977734392 Problem Epigastric pain R10.13 Active 39750785 Problem Gastroesophageal reflux disease without esophagitis K21.9 Active 508903625 Problem COPD (chronic obstructive pulmonary disease) J44.9 Active 19286803 Problem History of respiratory failure Z87.09 Active 803716497 Problem Hypoxia R09.02 Active 036889827 Problem Chronic pain G89.29 Active 39079308 Problem Anxiety F41.9 Active 74892699 Problem Essential hypertension with goal blood pressure less than 130\/85 I10 Active 29766696 Problem Respiratory distress R06.00 Active 689431189 Problem Depression F32.9 Active 30398182 Problem Type 2 diabetes mellitus with diabetic neuropathy E11.40 Active 08934008 Problem Cervical stenosis of spinal canal M48.02 Active 19081844 ALLERGIES Substance Reaction Event Type Date Status Prazosin HCl Vaginal Bleeding/night tremors Drug Allergy May, Active Penicillin V Potassium bronchospasm Drug Allergy May, Active Hymenoptra Tests shortness of breath Drug Allergy May, Active Fentanyl dizziness Drug Allergy May, Active Dornase Wesley anaphylaxis Drug Allergy May, Active Codeine bronchospasm Drug Allergy May, Active SOCIAL HISTORY Never Assessed PLAN OF CARE Activity Details Follow Up keep appt with eye doctor & Dr. Delgadillo Reason: VITAL SIGNS Height 67 in 2016-06-06 Weight 223.5 lbs 2016-06-06 Temperature 97.3 degrees Fahrenheit 2016-06-06 Heart Rate 76 bpm 2016-06-06 Respiratory Rate 20 2016-06-06 BMI 35.00 kg/m2 2016-06-06 Blood pressure systolic 108 mmHg 2016-06-06 Blood pressure diastolic 58 mmHg 2016-06-06 MEDICATIONS Medication Instructions Dosage Frequency Start Date End Date Duration Status Aspirin 81 mg 1 tablet by Oral route 1 time per day Aug, Active Tricor 145 MG TAKE ONE TABLET BY MOUTH DAILY 30 Active Singulair 10 MG take 1 tablet (10 mg) by oral route once daily in the evening Active Glimepiride 2 MG orally daily 1 tablet 24h 30 Active Flonase 50 MCG/ACT Nasally Once a day 1 spray in each nostril 24h Aug, 30 day(s) Active Centrum Silver Active Zoloft 100 MG Orally Once at bedtime 1 tablet Active Fish Oil Concentrate 2 Capsule 2 times per day Dec, Active DuoNeb 0.5 mg-3 mg(2.5 mg base)/3 mL 1 Nebulize Solution by Inhalation route 4 times per day Active Lipitor 20 MG Orally at hs 1 tablet by Oral route 1 time per day Dec, Active Lisinopril 5 MG TAKE ONE TABLET BY MOUTH ONCE DAILY 30 Active Lorazepam 0.5 MG Orally 2 times a day prn 1 tablet as needed 28 days Active TobraDex 0.3-0.1 % Ophthalmic 4 times a day 1 drop into affected eye 6h May, 07 days Active ZyrTEC 10 mg 1 Tablet by Oral route 1 time per day Active Spiriva HandiHaler 18 MCG Inhalation Once a day 24h Active Butrans 5 MCG/HR Transdermal change patch every 7 days- must last 28 days 1 patch to skin 28 Active MetFORMIN HCl ER 500 MG Orally Once a day 1 tablet with evening meal x 7 days then 2 daily 24h 30 day(s) Active Advair Diskus 250-50 MCG/DOSE inhale 1 puff by inhalation route 2 times per day in the morning and evening approximately 12 hours apart Active Albuterol Sulfate 90 mcg/actuation inhale 1 puff by inhalation route every 4-6 hours as needed Active Oxygen Active Hydrocodone-Acetaminophen 10-325 MG Orally 4 times a day prn must lat 28 days take 1 tablet Apr, Active Omeprazole 40 MG TAKE ONE CAPSULE BY MOUTH ONCE DAILY 30 Active Gabapentin 600 MG Orally at noon and two capsules in the evening 1 tablet Active Zoloft 50 mg Orally Once at bedtime 1 tablet Active Metoprolol Succinate ER 25 MG Orally Once a day 1 tablet 24h Active Amitriptyline HCl 25 MG Orally Once a day at hs 1 tablet May, 30 day(s) Active RESULTS No Results PROCEDURES Procedure Date Ordered Result Body Site VISUAL ACUITY SCREEN June 06, 2016 ON LICENSE OF [facility] VISIT ESTABLISHED PATIENT June 06, 2016 IMMUNIZATIONS No Known Immunizations MEDICAL (GENERAL) HISTORY [...] History colonosocpy with tubular ademoma due 2020 [id number] Surgical History trachiotomy- Dr Reid --pt removed 08/2015 Surgical History L. wrist dequevain's tendonitis- Dr Reno 07/2016 Surgical History Pancreatic Scope - Dr. Muñiz 08/2016 Hospitalization History respiratory distress 06/2014 Hospitalization History respiratory distress 01/2015 Hospitalization History respiratory distress 03/2015 Hospitalization History Pneumonia-VC 05/2015 Hospitalization History Tracheitis 06/2015 Hospitalization History x20 respiratory distress 09/2016
--- OUTSIDE RECORDS SUMMARY | 2017-03-23 13:19 | XMS REPORT ---
Author Author COREY JUAREZ [facility] Address [address] [place] [address] Care Team Providers Care Counter Clerk Name Role Phone COREY JUAREZ Unavailable PROBLEMS Type Condition ICD9-CM Code [id number] Code Onset Dates Condition Status SNOMED Code Problem Neck pain M54.2 Active 79272789 Problem COPD with acute exacerbation J44.1 Active 188879158 Problem Fall from bed, sequela W06.XXXS Active 24441621 Problem Weakness generalized R53.1 Active 75213305 Problem STACY on CPAP G47.33 Active 76177140 Problem Gastroesophageal reflux disease, esophagitis presence not specified K21.9 Active 722501680 Problem Left wrist tendonitis M77.8 Active 407760661 Problem Muscular deconditioning R29.898 Active 991825759 Problem Epigastric pain R10.13 Active 96129843 Problem Gastroesophageal reflux disease without esophagitis K21.9 Active 795875702 Problem Hypoxia R09.02 Active 396824838 Problem History of respiratory failure Z87.09 Active 429019267 Problem Chronic pain G89.29 Active 62008268 Problem COPD (chronic obstructive pulmonary disease) J44.9 Active 89318500 Problem Anxiety F41.9 Active 96766039 Problem Essential hypertension with goal blood pressure less than 130\/85 I10 Active 12706156 Problem Type 2 diabetes mellitus with diabetic neuropathy E11.40 Active 66996457 Problem Depression F32.9 Active 814022707 Problem Respiratory distress R06.00 Active 178103373 Problem Cervical stenosis of spinal canal M48.02 Active 72643279 ALLERGIES Unknown Allergies SOCIAL HISTORY No smoking Hx information available PLAN OF CARE VITAL SIGNS MEDICATIONS Medication Instructions Dosage Frequency Start Date End Date Duration Status Butrans 5 MCG/HR Transdermal change patch every 7 days- must last 28 days 1 patch to skin Dec, Active Hydrocodone-Acetaminophen 10-325 MG Orally 3 times a day take 1 tablet 8h Active RESULTS No Results PROCEDURES No Known procedures IMMUNIZATIONS No Known Immunizations
--- OUTSIDE RECORDS SUMMARY | 2017-03-23 13:19 | XMS REPORT ---
Author Author GERMAINE BRENNAN [facility] Address [address] [place] [address] Care Team Providers Care Senior Business Intelligence Analyst Name Role Phone GERMAINE BRENNAN Unavailable PROBLEMS Type Condition ICD9-CM Code [id number] Code Onset Dates Condition Status SNOMED Code Problem Neck pain M54.2 Active 98788861 Problem COPD with acute exacerbation J44.1 Active 264191004 Problem Fall from bed, sequela W06.XXXS Active 77384496 Problem Weakness generalized R53.1 Active 99700820 Problem STACY on CPAP G47.33 Active 05036055 Problem Gastroesophageal reflux disease, esophagitis presence not specified K21.9 Active 355823468 Problem Left wrist tendonitis M77.8 Active 119041523 Problem Muscular deconditioning R29.898 Active 590384676 Problem Epigastric pain R10.13 Active 96655087 Problem Gastroesophageal reflux disease without esophagitis K21.9 Active 810476682 Problem Hypoxia R09.02 Active 941104072 Problem History of respiratory failure Z87.09 Active 262105031 Problem Chronic pain G89.29 Active 01790279 Problem COPD (chronic obstructive pulmonary disease) J44.9 Active 29534781 Problem Anxiety F41.9 Active 25285149 Problem Essential hypertension with goal blood pressure less than 130\/85 I10 Active 11289876 Problem Type 2 diabetes mellitus with diabetic neuropathy E11.40 Active 42424373 Problem Depression F32.9 Active 325826187 Problem Respiratory distress R06.00 Active 704797457 Problem Cervical stenosis of spinal canal M48.02 Active 07746557 ALLERGIES Substance Reaction Event Type Date Status Prazosin HCl Vaginal Bleeding/night tremors Drug Allergy Feb, Active Penicillin V Potassium bronchospasm Drug Allergy Feb, Active Hymenoptra Tests shortness of breath Drug Allergy Feb, Active Fentanyl dizziness Drug Allergy Feb, Active Dornase Wesley anaphylaxis Drug Allergy Feb, Active Codeine bronchospasm Drug Allergy Feb, Active SOCIAL HISTORY No smoking Hx information available PLAN OF CARE Activity Details Follow Up 2 Months Reason: VITAL SIGNS Height 67 in 2016-02-28 Weight 235.0 lbs 2016-02-28 Heart Rate 84 bpm 2016-02-28 Respiratory Rate 20 2016-02-28 BMI 36.80 kg/m2 2016-02-28 Blood pressure systolic 137 mmHg 2016-02-28 Blood pressure diastolic 83 mmHg 2016-02-28 MEDICATIONS Medication Instructions Dosage Frequency Start Date End Date Duration Status Acyclovir 800 MG Orally Five times a day 1 tablet 3 days Active Albuterol Sulfate 90 mcg/actuation inhale 1 puff by inhalation route every 4-6 hours as needed Active Glimepiride 2 MG TAKE ONE TABLET BY MOUTH ONCE DAILY 30 Active Fish Oil Concentrate 2 Capsule 2 times per day Dec, Active Metoprolol Succinate ER 25 MG Orally Once a day 1 tablet 24h Active Amitriptyline HCl 100 MG TAKE ONE TABLET BY MOUTH AT BEDTIME 30 Active Gabapentin 600 MG Orally at noon and two capsules in the evening 1 tablet Active Tricor 145 MG TAKE ONE TABLET BY MOUTH DAILY 30 Active Gabapentin 300 MG TAKE ONE CAPSULE BY MOUTH IN THE MORNING, TWO CAPSULES AT NOON AND TWO CAPSULES IN THE EVENING 30 Active Butrans 5 MCG/HR Transdermal change patch every 7 days- must last 28 days 1 patch to skin Dec, Active Lidocaine 5 % Externally to shingles areas qid prn as directed Jan, Active Zoloft 50 mg Orally Once at bedtime 1 tablet Active DuoNeb 0.5 mg-3 mg(2.5 mg base)/3 mL 1 Nebulize Solution by Inhalation route 4 times per day Active Flonase 50 MCG/ACT Nasally Once a day 1 spray in each nostril 24h Aug, 30 day(s) Active Centrum Silver Active Hydrocodone-Acetaminophen 10-325 MG Orally 3 times a day take 1 tablet 8h Active Lorazepam 0.5 MG Orally 2 times a day prn 1 tablet as needed 28 days Active ZyrTEC 10 mg 1 Tablet by Oral route 1 time per day Active Singulair 10 MG take 1 tablet (10 mg) by oral route once daily in the evening Active Lipitor 80 MG Orally at hs 1 tablet by Oral route 1 time per day Dec, Active Advair Diskus 250-50 MCG/DOSE inhale 1 puff by inhalation route 2 times per day in the morning and evening approximately 12 hours apart Active Aspirin 81 mg 1 tablet by Oral route 1 time per day Aug, Active Zoloft 100 MG Orally Once at bedtime 1 tablet Active Spiriva HandiHaler 18 MCG Inhalation Once a day 24h Active Omeprazole 40 MG TAKE ONE CAPSULE BY MOUTH ONCE DAILY 30 Active Oxygen Active Lisinopril 5 MG TAKE ONE TABLET BY MOUTH ONCE DAILY 30 Active RESULTS No Results PROCEDURES Procedure Date Ordered Related Diagnosis Body Site [facility] VISIT ESTABLISHED PATIENT Feb 28, 2016 Office Visit, Est Pt., Level 2 Feb 28, 2016 IMMUNIZATIONS No Known Immunizations
--- OUTSIDE RECORDS SUMMARY | 2017-03-23 13:20 | XMS REPORT ---
Author Author COREY JUAREZ [facility] Address [address] [place] [address] Care Team Providers Care Animal Bounty Hunter Name Role Phone COREY JUAREZ Unavailable PROBLEMS Type Condition ICD9-CM Code [id number] Code Onset Dates Condition Status SNOMED Code Problem Neck pain M54.2 Active 44804088 Problem COPD with acute exacerbation J44.1 Active 259891436 Problem Fall from bed, sequela W06.XXXS Active 57875210 Problem Weakness generalized R53.1 Active 64846837 Problem STACY on CPAP G47.33 Active 42612483 Problem Gastroesophageal reflux disease, esophagitis presence not specified K21.9 Active 298905105 Problem Left wrist tendonitis M77.8 Active 439736120 Problem Muscular deconditioning R29.898 Active 177913807 Problem Epigastric pain R10.13 Active 86185359 Problem Gastroesophageal reflux disease without esophagitis K21.9 Active 701468200 Problem COPD (chronic obstructive pulmonary disease) J44.9 Active 75922152 Problem History of respiratory failure Z87.09 Active 809380861 Problem Hypoxia R09.02 Active 973186390 Problem Chronic pain G89.29 Active 48584736 Problem Anxiety F41.9 Active 98212636 Problem Essential hypertension with goal blood pressure less than 130\/85 I10 Active 14915273 Problem Respiratory distress R06.00 Active 748520658 Problem Depression F32.9 Active 53795266 Problem Type 2 diabetes mellitus with diabetic neuropathy E11.40 Active 67329807 Problem Cervical stenosis of spinal canal M48.02 Active 25013272 ALLERGIES No Information SOCIAL HISTORY Never Assessed PLAN OF CARE VITAL SIGNS MEDICATIONS Medication Instructions Dosage Frequency Start Date End Date Duration Status MetFORMIN HCl ER 500 mg Orally twice a day 1 tablet 12h 30 day(s) Active RESULTS No Results PROCEDURES [...]
--- OUTSIDE RECORDS SUMMARY | 2017-03-23 13:20 | XMS REPORT ---
Author Author COREY JUAREZ [facility] Address [address] [place] [address] Care Team Providers Care Electronic Tech Name Role Phone COREY JUAREZ Unavailable PROBLEMS Type Condition ICD9-CM Code RUN24-FC Code Onset Dates Condition Status SNOMED Code Problem Neck pain M54.2 Active 80648495 Problem COPD with acute exacerbation J44.1 Active 093301048 Problem Fall from bed, sequela W06.XXXS Active 17726390 Problem Weakness generalized R53.1 Active 09336746 Problem STACY on CPAP G47.33 Active 14267227 Problem Gastroesophageal reflux disease, esophagitis presence not specified K21.9 Active 809137475 Problem Left wrist tendonitis M77.8 Active 157234239 Problem Muscular deconditioning R29.898 Active 162899482 Problem Epigastric pain R10.13 Active 38938352 Problem Gastroesophageal reflux disease without esophagitis K21.9 Active 056500205 Problem COPD (chronic obstructive pulmonary disease) J44.9 Active 73379255 Problem History of respiratory failure Z87.09 Active 865422492 Problem Hypoxia R09.02 Active 873695816 Problem Chronic pain G89.29 Active 95000923 Problem Anxiety F41.9 Active 54542782 Problem Essential hypertension with goal blood pressure less than 130\/85 I10 Active 86323697 Problem Respiratory distress R06.00 Active 838308396 Problem Depression F32.9 Active 99560963 Problem Type 2 diabetes mellitus with diabetic neuropathy E11.40 Active 25677637 Problem Cervical stenosis of spinal canal M48.02 Active 81466234 ALLERGIES No Information SOCIAL HISTORY Never Assessed PLAN OF CARE VITAL SIGNS MEDICATIONS Unknown Medications RESULTS Name Result Date Reference Range [employer] 2016-06-06 PROCEDURES Procedure Date Ordered Result Body Site No Charge June 06, 2016 IMMUNIZATIONS No Known Immunizations [...]
--- OUTSIDE RECORDS SUMMARY | 2017-03-23 13:20 | XMS REPORT ---
Author Author COREY JUAREZ [facility] Address [address] [place] [address] Care Team Providers Care Board Design Engineer Name Role Phone COREY JUAREZ Unavailable PROBLEMS Type Condition ICD9-CM Code TII62-GD Code Onset Dates Condition Status SNOMED Code Problem Neck pain M54.2 Active 35747988 Problem COPD with acute exacerbation J44.1 Active 969330264 Problem Fall from bed, sequela W06.XXXS Active 48469233 Problem Weakness generalized R53.1 Active 00611779 Problem STACY on CPAP G47.33 Active 01896982 Problem Gastroesophageal reflux disease, esophagitis presence not specified K21.9 Active 260761744 Problem Left wrist tendonitis M77.8 Active 207729726 Problem Muscular deconditioning R29.898 Active 593723694 Problem Epigastric pain R10.13 Active 76355585 Problem Gastroesophageal reflux disease without esophagitis K21.9 Active 577838344 Problem COPD (chronic obstructive pulmonary disease) J44.9 Active 77002097 Problem History of respiratory failure Z87.09 Active 088680985 Problem Hypoxia R09.02 Active 065981799 Problem Chronic pain G89.29 Active 07855025 Problem Anxiety F41.9 Active 47832344 Problem Essential hypertension with goal blood pressure less than 130\/85 I10 Active 97062418 Problem Respiratory distress R06.00 Active 528621962 Problem Depression F32.9 Active 513189485 Problem Type 2 diabetes mellitus with diabetic neuropathy E11.40 Active 78607663 Problem Cervical stenosis of spinal canal M48.02 Active 08259049 ALLERGIES Substance Reaction Event Type Date Status Prazosin HCl Vaginal Bleeding/night tremors Drug Allergy Mar, Active Penicillin V Potassium bronchospasm Drug Allergy Mar, Active Hymenoptra Tests shortness of breath Drug Allergy Mar, Active Fentanyl dizziness Drug Allergy Mar, Active Dornase Wesley anaphylaxis Drug Allergy Mar, Active Codeine bronchospasm Drug Allergy Mar, Active SOCIAL HISTORY No smoking Hx information available PLAN OF CARE Activity Details Follow Up 2 Months Reason:DM/Pain VITAL SIGNS Height 67 in 2016-04-18 Weight 226.7 lbs 2016-04-18 Temperature 99.5 degrees Fahrenheit 2016-04-18 Heart Rate 76 bpm 2016-04-18 Respiratory Rate 18 2016-04-18 BMI 35.50 kg/m2 2016-04-18 Blood pressure systolic 122 mmHg 2016-04-18 Blood pressure diastolic 64 mmHg 2016-04-18 MEDICATIONS Medication Instructions Dosage Frequency Start Date End Date Duration Status PredniSONE 20 mg Orally Once a day 1 tablet 24h Mar, 2 Apr, 2016 07 days Active Centrum Silver Active Zoloft 50 mg Orally Once at bedtime 1 tablet Active Glimepiride 2 MG orally daily 1 tablet 24h 30 Active Zoloft 100 MG Orally Once at bedtime 1 tablet Active Singulair 10 MG take 1 tablet (10 mg) by oral route once daily in the evening Active DuoNeb 0.5 mg-3 mg(2.5 mg base)/3 mL 1 Nebulize Solution by Inhalation route 4 times per day Active ZyrTEC 10 mg 1 Tablet by Oral route 1 time per day Active Omeprazole 40 MG TAKE ONE CAPSULE BY MOUTH ONCE DAILY 30 Active Aspirin 81 mg 1 tablet by Oral route 1 time per day Aug, Active Lisinopril 5 MG TAKE ONE TABLET BY MOUTH ONCE DAILY 30 Active Butrans 5 MCG/HR Transdermal change patch every 7 days- must last 28 days 1 patch to skin Active Amitriptyline HCl 100 mg Orally Once a day 1/2 tablet 24h Active Lorazepam 0.5 MG Orally 2 times a day prn 1 tablet as needed 28 days Active Gabapentin 600 MG Orally at noon and two capsules in the evening 1 tablet Active Spiriva HandiHaler 18 MCG Inhalation Once a day 24h Active Albuterol Sulfate 90 mcg/actuation inhale 1 puff by inhalation route every 4-6 hours as needed Active Advair Diskus 250-50 MCG/DOSE inhale 1 puff by inhalation route 2 times per day in the morning and evening approximately 12 hours apart Active Hydrocodone-Acetaminophen 10-325 MG Orally 4 times a day take 1 tablet 6h Active MetFORMIN HCl ER 500 MG Orally Once a day 1 tablet with evening meal x 7 days then 2 daily 24h 30 day(s) Active Flonase 50 MCG/ACT Nasally Once a day 1 spray in each nostril 24h 16 Aug, 2015 30 day(s) Active Metoprolol Succinate ER 25 MG Orally Once a day 1 tablet 24h Active Tricor 145 MG TAKE ONE TABLET BY MOUTH DAILY 30 Active Lipitor 20 MG Orally at hs 1 tablet by Oral route 1 time per day Dec, Active Oxygen Active Fish Oil Concentrate 2 Capsule 2 times per day Dec, Active RESULTS Name Result Date Reference Range [facility] 2016-04-18 Glucose, Serum 91 65-99 BUN 18 8-27 Creatinine, Serum 0.74 0.57-1.00 eGFR If NonAfricn Am 86 >59 eGFR If Africn Am 100 >59 BUN/Creatinine Ratio 24 11-26 Sodium, Serum 141 134-144 Potassium, Serum 4.3 3.5-5.2 Chloride, Serum 99 96-106 Carbon Dioxide, Total 23 18-29 Calcium, Serum 9.5 8.7-10.3 Protein, Total, Serum 6.1 6.0-8.5 Albumin, Serum 4.5 3.6-4.8 Globulin, Total 1.6 1.5-4.5 A/G Ratio 2.8 1.1-2.5 Bilirubin, Total 0.3 0.0-1.2 Alkaline Phosphatase, S 67 39-117 AST (SGOT) 26 0-40 ALT (SGPT) 26 0-32 PROCEDURES Procedure Date Ordered Related Diagnosis Body Site LAB NOT BILLED BY [facility] Apr 18, 2016 [facility] VISIT ESTABLISHED PATIENT Apr 18, 2016 VENDEZ, ROUTINE* Apr 18, 2016 Office Visit, Est Pt., Level 5 Apr 18, 2016 IMMUNIZATIONS No Known Immunizations
--- OUTSIDE RECORDS SUMMARY | 2017-03-23 13:21 | XMS REPORT ---
Author Author RICHIE ALVAREZ [facility] Address [address] [place] [address] Care Team Providers Care Culinary Manager Name Role Phone RICHIE ALVAREZ Unavailable PROBLEMS Type Condition ICD9-CM Code [id number] Code Onset Dates Condition Status SNOMED Code Problem Neck pain M54.2 Active 13818770 Problem COPD with acute exacerbation J44.1 Active 608083774 Problem Fall from bed, sequela W06.XXXS Active 95659737 Problem Weakness generalized R53.1 Active 82083007 Problem STACY on CPAP G47.33 Active 33979250 Problem Gastroesophageal reflux disease, esophagitis presence not specified K21.9 Active 586512931 Problem Left wrist tendonitis M77.8 Active 535429439 Problem Muscular deconditioning R29.898 Active 435121277 Problem Epigastric pain R10.13 Active 79493185 Problem Gastroesophageal reflux disease without esophagitis K21.9 Active 976206040 Problem COPD (chronic obstructive pulmonary disease) J44.9 Active 78669166 Problem History of respiratory failure Z87.09 Active 236401910 Problem Hypoxia R09.02 Active 725159238 Problem Chronic pain G89.29 Active 83208938 Problem Anxiety F41.9 Active 13899307 Problem Essential hypertension with goal blood pressure less than 130\/85 I10 Active 57793084 Problem Respiratory distress R06.00 Active 644052848 Problem Depression F32.9 Active 14443331 Problem Type 2 diabetes mellitus with diabetic neuropathy E11.40 Active 69748829 Problem Cervical stenosis of spinal canal M48.02 Active 08171116 ALLERGIES Substance Reaction Event Type Date Status Prazosin HCl Vaginal Bleeding/night tremors Drug Allergy Apr, Active Penicillin V Potassium bronchospasm Drug Allergy Apr, Active Hymenoptra Tests shortness of breath Drug Allergy Apr, Active Fentanyl dizziness Drug Allergy Apr, Active Dornase Welsey anaphylaxis Drug Allergy Apr, Active Codeine bronchospasm Drug Allergy Apr, Active SOCIAL HISTORY Never Assessed PLAN OF CARE Activity Details Follow Up 2 Weeks with PCP madl Reason: VITAL SIGNS Height 67 in 2016-04-29 Weight 222 lbs 2016-04-29 Temperature 98.7 degrees Fahrenheit 2016-04-29 Heart Rate 80 bpm 2016-04-29 Respiratory Rate 20 2016-04-29 Oximetry w/ oxygen @ 2L:97 % 2016-04-29 BMI 34.77 kg/m2 2016-04-29 Blood pressure systolic 122 mmHg 2016-04-29 Blood pressure diastolic 76 mmHg 2016-04-29 MEDICATIONS Medication Instructions Dosage Frequency Start Date End Date Duration Status Lipitor 20 MG Orally at hs 1 tablet by Oral route 1 time per day Dec, Active Amitriptyline HCl 100 mg Orally Once a day 1/2 tablet 24h Active Glimepiride 2 MG orally daily 1 tablet 24h 30 Active Aspirin 81 mg 1 tablet by Oral route 1 time per day Aug, Active Advair Diskus 250-50 MCG/DOSE inhale 1 puff by inhalation route 2 times per day in the morning and evening approximately 12 hours apart Active Singulair 10 MG take 1 tablet (10 mg) by oral route once daily in the evening Active Spiriva HandiHaler 18 MCG Inhalation Once a day 24h Active Doxycycline Hyclate 100 mg Orally every 12 hrs 1 capsule 12h Apr, Apr, 07 days Active Centrum Silver Active DuoNeb 0.5 mg-3 mg(2.5 mg base)/3 mL 1 Nebulize Solution by Inhalation route 4 times per day Active Fish Oil Concentrate 2 Capsule 2 times per day Dec, Active Metoprolol Succinate ER 25 MG Orally Once a day 1 tablet 24h Active Tricor 145 MG TAKE ONE TABLET BY MOUTH DAILY 30 Active Zoloft 50 mg Orally Once at bedtime 1 tablet Active ZyrTEC 10 mg 1 Tablet by Oral route 1 time per day Active Flonase 50 MCG/ACT Nasally Once a day 1 spray in each nostril 24h Aug, 30 day(s) Active Omeprazole 40 MG TAKE ONE CAPSULE BY MOUTH ONCE DAILY 30 Active Hydrocodone-Acetaminophen 10-325 MG Orally 4 times a day take 1 tablet 6h Active Albuterol Sulfate 90 mcg/actuation inhale 1 puff by inhalation route every 4-6 hours as needed Active Zoloft 100 MG Orally Once at bedtime 1 tablet Active Gabapentin 600 MG Orally at noon and two capsules in the evening 1 tablet Active PredniSONE 20 mg Orally Once a day 1 tablet 24h Mar, Apr, 07 days Active Oxygen Active Lorazepam 0.5 MG Orally 2 times a day prn 1 tablet as needed 28 days Active Lisinopril 5 MG TAKE ONE TABLET BY MOUTH ONCE DAILY 30 Active Butrans 5 MCG/HR Transdermal change patch every 7 days- must last 28 days 1 patch to skin Active MetFORMIN HCl ER 500 MG Orally Once a day 1 tablet with evening meal x 7 days then 2 daily 24h 30 day(s) Active RESULTS Name Result Date Reference Range INFLUENZA A & B (IN HOUSE) 2016-04-29 INFLUENZA A negative INFLUENZA B negative Control + Lot # [id number] Exp date 09/19/17 STREP A (IN HOUSE) 2016-04-29 STREP A negative Control + Lot # [id number] Exp date 02/20/2017 Xray : Chest (IN HOUSE) 2016-04-29 PROCEDURES Procedure Date Ordered Result Body Site CHEST X-RAY Apr 29, 2016 MEASURE BLOOD OXYGEN LEVEL Apr 29, 2016 STREP A ASSAY W/OPTIC Apr 29, 2016 INFLUENZA ASSAY W/OPTIC Apr 29, 2016 FQ VISIT ESTABLISHED PATIENT Apr 29, 2016 IMMUNIZATIONS No Known Immunizations MEDICAL (GENERAL) [...] History colonosocpy with tubular ademoma due 2020 [id number] Surgical History trachiotomy- Dr Reid --pt removed 08/2015 Surgical History L. wrist dequevain's tendonitis- Dr Reno 07/2016 Surgical History Pancreatic Scope - Dr. Muñiz 08/2016 Hospitalization History respiratory distress 06/2014 Hospitalization History respiratory distress 01/2015 Hospitalization History respiratory distress 03/2015 Hospitalization History Pneumonia-VC 05/2015 Hospitalization History Tracheitis 06/2015 Hospitalization History x20 respiratory distress 09/2016
--- OUTSIDE RECORDS SUMMARY | 2017-03-23 13:22 | XMS REPORT ---
Author Author GERMAINE BRENNAN [facility] Address [address] [place] [address] Care Team Providers Care Clear Coat Sprayer Name Role Phone GERMAINE BRENNAN Unavailable PROBLEMS Type Condition ICD9-CM Code [id number] Code Onset Dates Condition Status SNOMED Code Problem Neck pain M54.2 Active 78023815 Problem COPD with acute exacerbation J44.1 Active 432378409 Problem Fall from bed, sequela W06.XXXS Active 39360431 Problem Weakness generalized R53.1 Active 04934120 Problem STACY on CPAP G47.33 Active 34580575 Problem Gastroesophageal reflux disease, esophagitis presence not specified K21.9 Active 032354805 Problem Left wrist tendonitis M77.8 Active 571545836 Problem Muscular deconditioning R29.898 Active 125263082 Problem Epigastric pain R10.13 Active 30659116 Problem Gastroesophageal reflux disease without esophagitis K21.9 Active 913125370 Problem COPD (chronic obstructive pulmonary disease) J44.9 Active 10955677 Problem History of respiratory failure Z87.09 Active 524751230 Problem Hypoxia R09.02 Active 646415650 Problem Chronic pain G89.29 Active 54998705 Problem Anxiety F41.9 Active 09679562 Problem Essential hypertension with goal blood pressure less than 130\/85 I10 Active 39437738 Problem Respiratory distress R06.00 Active 673725419 Problem Depression F32.9 Active 26943138 Problem Type 2 diabetes mellitus with diabetic neuropathy E11.40 Active 85544731 Problem Cervical stenosis of spinal canal M48.02 Active 22323951 ALLERGIES Substance Reaction Event Type Date Status Prazosin HCl Vaginal Bleeding/night tremors Drug Allergy Apr, Active Penicillin V Potassium bronchospasm Drug Allergy Apr, Active Hymenoptra Tests shortness of breath Drug Allergy Apr, Active Fentanyl dizziness Drug Allergy Apr, Active Dornase Wesley anaphylaxis Drug Allergy Apr, Active Codeine bronchospasm Drug Allergy Apr, Active SOCIAL HISTORY Never Assessed PLAN OF CARE Activity Details Follow Up 2 Months Reason: VITAL SIGNS Height 67 in 2016-05-14 Weight 226.0 lbs 2016-05-14 Heart Rate 72 bpm 2016-05-14 Respiratory Rate 20 2016-05-14 BMI 35.39 kg/m2 2016-05-14 Blood pressure systolic 112 mmHg 2016-05-14 Blood pressure diastolic 64 mmHg 2016-05-14 MEDICATIONS Medication Instructions Dosage Frequency Start Date End Date Duration Status Amitriptyline HCl 100 mg Orally Once a day 1/2 tablet 24h Active PredniSONE 20 mg Orally Once a day 1 tablet 24h Mar, Apr, 07 days Active Gabapentin 600 MG Orally at noon and two capsules in the evening 1 tablet Active Oxygen Active Aspirin 81 mg 1 tablet by Oral route 1 time per day Aug, Active DuoNeb 0.5 mg-3 mg(2.5 mg base)/3 mL 1 Nebulize Solution by Inhalation route 4 times per day Active Hydrocodone-Acetaminophen 10-325 MG Orally 4 times a day prn must lat 28 days take 1 tablet Apr, Active Spiriva HandiHaler 18 MCG Inhalation Once a day 24h Active ZyrTEC 10 mg 1 Tablet by Oral route 1 time per day Active Singulair 10 MG take 1 tablet (10 mg) by oral route once daily in the evening Active Lisinopril 5 MG TAKE ONE TABLET BY MOUTH ONCE DAILY 30 Active Albuterol Sulfate 90 mcg/actuation inhale 1 puff by inhalation route every 4-6 hours as needed Active Zoloft 50 mg Orally Once at bedtime 1 tablet Active Zoloft 100 MG Orally Once at bedtime 1 tablet Active Flonase 50 MCG/ACT Nasally Once a day 1 spray in each nostril 24h Aug, 30 day(s) Active Lipitor 20 MG Orally at hs 1 tablet by Oral route 1 time per day Dec, Active Metoprolol Succinate ER 25 MG Orally Once a day 1 tablet 24h Active Omeprazole 40 MG TAKE ONE CAPSULE BY MOUTH ONCE DAILY 30 Active Lorazepam 0.5 MG Orally 2 times a day prn 1 tablet as needed 28 days Active Glimepiride 2 MG orally daily 1 tablet 24h 30 Active Centrum Silver Active Tricor 145 MG TAKE ONE TABLET BY MOUTH DAILY 30 Active Advair Diskus 250-50 MCG/DOSE inhale 1 puff by inhalation route 2 times per day in the morning and evening approximately 12 hours apart Active Fish Oil Concentrate 2 Capsule 2 times per day Dec, Active MetFORMIN HCl ER 500 MG Orally Once a day 1 tablet with evening meal x 7 days then 2 daily 24h 30 day(s) Active Butrans 5 MCG/HR Transdermal change patch every 7 days- must last 28 days 1 patch to skin Active RESULTS No Results PROCEDURES Procedure Date Ordered Result Body Site [facility] VISIT ESTABLISHED PATIENT May 14, 2016 IMMUNIZATIONS No Known Immunizations MEDICAL (GENERAL) [...]
--- OUTSIDE RECORDS SUMMARY | 2017-03-23 13:23 | XMS REPORT ---
Author Author COREY JUAREZ [facility] Address [address] [place] [address] Care Team Providers Care Back Closer Name Role Phone COREY JUAREZ Unavailable PROBLEMS Type Condition ICD9-CM Code [id number] Code Onset Dates Condition Status SNOMED Code Problem Neck pain M54.2 Active 29353586 Problem COPD with acute exacerbation J44.1 Active 054309002 Problem Fall from bed, sequela W06.XXXS Active 74132838 Problem Weakness generalized R53.1 Active 52723253 Problem STACY on CPAP G47.33 Active 82285195 Problem Gastroesophageal reflux disease, esophagitis presence not specified K21.9 Active 021106541 Problem Left wrist tendonitis M77.8 Active 901849795 Problem Muscular deconditioning R29.898 Active 909271914 Problem Epigastric pain R10.13 Active 04259073 Problem Gastroesophageal reflux disease without esophagitis K21.9 Active 813806443 Problem COPD (chronic obstructive pulmonary disease) J44.9 Active 57124509 Problem History of respiratory failure Z87.09 Active 212445159 Problem Hypoxia R09.02 Active 537685607 Problem Chronic pain G89.29 Active 87799902 Problem Anxiety F41.9 Active 11350586 Problem Essential hypertension with goal blood pressure less than 130\/85 I10 Active 97975195 Problem Respiratory distress R06.00 Active 614041395 Problem Depression F32.9 Active 732626832 Problem Type 2 diabetes mellitus with diabetic neuropathy E11.40 Active 55488473 Problem Cervical stenosis of spinal canal M48.02 Active 29595873 ALLERGIES No Information SOCIAL HISTORY Never Assessed [...]
--- OUTSIDE RECORDS SUMMARY | 2017-03-23 13:23 | XMS REPORT ---
Author Author COREY JUAREZ [facility] Address [address] [place] [address] Care Team Providers Care Receptionist Secretary Name Role Phone COREY JUAREZ Unavailable PROBLEMS Type Condition ICD9-CM Code [id number] Code Onset Dates Condition Status SNOMED Code Problem Neck pain M54.2 Active 27215722 Problem COPD with acute exacerbation J44.1 Active 097412884 Problem Fall from bed, sequela W06.XXXS Active 38820053 Problem Weakness generalized R53.1 Active 54346281 Problem STACY on CPAP G47.33 Active 20201398 Problem Gastroesophageal reflux disease, esophagitis presence not specified K21.9 Active 391136729 Problem Left wrist tendonitis M77.8 Active 396980784 Problem Muscular deconditioning R29.898 Active 138464528 Problem Epigastric pain R10.13 Active 09282664 Problem Gastroesophageal reflux disease without esophagitis K21.9 Active 629685277 Problem COPD (chronic obstructive pulmonary disease) J44.9 Active 02158300 Problem History of respiratory failure Z87.09 Active 916920077 Problem Hypoxia R09.02 Active 799778217 Problem Chronic pain G89.29 Active 29670341 Problem Anxiety F41.9 Active 09156998 Problem Essential hypertension with goal blood pressure less than 130\/85 I10 Active 31211242 Problem Respiratory distress R06.00 Active 693693691 Problem Depression F32.9 Active 540865563 Problem Type 2 diabetes mellitus with diabetic neuropathy E11.40 Active 27394190 Problem Cervical stenosis of spinal canal M48.02 Active 19606375 ALLERGIES Unknown Allergies SOCIAL HISTORY No smoking Hx information available PLAN OF CARE VITAL SIGNS MEDICATIONS Medication Instructions Dosage Frequency Start Date End Date Duration Status Butrans 5 MCG/HR Transdermal change patch every 7 days- must last 28 days 1 patch to skin Active Hydrocodone-Acetaminophen 10-325 MG Orally 4 times a day take 1 tablet 6h Active RESULTS No Results PROCEDURES No Known procedures IMMUNIZATIONS No Known Immunizations
--- OUTSIDE RECORDS SUMMARY | 2017-03-23 13:23 | XMS REPORT ---
Author Author [facility] Address [address] [place] [address] Care Team Providers Care Certified Nurses' Aide Name Role Phone GERMAINE BRENNAN Unavailable PROBLEMS Type Condition ICD9-CM Code [id number] Code Onset Dates Condition Status SNOMED Code Problem Neck pain M54.2 Active 34588304 Problem COPD with acute exacerbation J44.1 Active 714137625 Problem Fall from bed, sequela W06.XXXS Active 07858511 Problem Weakness generalized R53.1 Active 95423406 Problem STACY on CPAP G47.33 Active 21421734 Problem Gastroesophageal reflux disease, esophagitis presence not specified K21.9 Active 328935710 Problem Left wrist tendonitis M77.8 Active 384980630 Problem Muscular deconditioning R29.898 Active 412872332 Problem Epigastric pain R10.13 Active 60930813 Problem Gastroesophageal reflux disease without esophagitis K21.9 Active 656685635 Problem COPD (chronic obstructive pulmonary disease) J44.9 Active 54184772 Problem History of respiratory failure Z87.09 Active 009183499 Problem Hypoxia R09.02 Active 280727779 Problem Chronic pain G89.29 Active 99530259 Problem Anxiety F41.9 Active 26098342 Problem Essential hypertension with goal blood pressure less than 130\/85 I10 Active 97687295 Problem Respiratory distress R06.00 Active 143236013 Problem Depression F32.9 Active 757636290 Problem Type 2 diabetes mellitus with diabetic neuropathy E11.40 Active 83167543 Problem Cervical stenosis of spinal canal M48.02 Active 71332649 ALLERGIES Substance Reaction Event Type Date Status Prazosin HCl Vaginal Bleeding/night tremors Drug Allergy Jun, Active Penicillin V Potassium bronchospasm Drug Allergy Jun, Active Hymenoptra Tests shortness of breath Drug Allergy Jun, Active Fentanyl dizziness Drug Allergy Jun, Active Dornase Wesley anaphylaxis Drug Allergy Jun, Active Codeine bronchospasm Drug Allergy Jun, Active SOCIAL HISTORY Never Assessed PLAN OF CARE Activity Details Follow Up 6 Weeks Reason: VITAL SIGNS Height 67 in 2016-07-12 Weight 221 lbs 2016-07-12 Heart Rate 72 bpm 2016-07-12 Respiratory Rate 20 2016-07-12 BMI 34.61 kg/m2 2016-07-12 Blood pressure systolic 110 mmHg 2016-07-12 Blood pressure diastolic 65 mmHg 2016-07-12 MEDICATIONS Medication Instructions Dosage Frequency Start Date End Date Duration Status Lisinopril 5 MG TAKE ONE TABLET BY MOUTH ONCE DAILY 30 Active Lorazepam 0.5 MG Orally 2 times a day prn 1 tablet as needed 28 days Active Omeprazole 40 MG TAKE ONE CAPSULE BY MOUTH ONCE DAILY 30 Active DuoNeb 0.5 mg-3 mg(2.5 mg base)/3 mL 1 Nebulize Solution by Inhalation route 4 times per day Active Butrans 5 MCG/HR Transdermal change patch every 7 days- must last 28 days 1 patch to skin 28 Active Amitriptyline HCl 100 mg Orally Once a day 1/2 tablet 24h Active Fish Oil Concentrate 2 Capsule 2 times per day Dec, Active Hydrocodone-Acetaminophen 10-325 MG Orally 4 times a day prn must lat 28 days take 1 tablet Apr, Active Abilify 2 MG Orally twice a day 1 tablet 12h Jun, 30 day(s) Active Lipitor 20 MG Orally at hs 1 tablet by Oral route 1 time per day Dec, Active Zoloft 100 mg Orally Once at bedtime 1.5 tablets 30 days Active Metoprolol Succinate ER 25 MG Orally Once a day 1 tablet 24h Active Aspirin 81 mg 1 tablet by Oral route 1 time per day Aug, Active Spiriva HandiHaler 18 MCG Inhalation Once a day 24h Active Flonase 50 MCG/ACT Nasally Once a day 1 spray in each nostril 24h Aug, 30 day(s) Active Centrum Silver Active MetFORMIN HCl ER 500 mg Orally twice a day 1 tablet 12h 30 day(s) Active Albuterol Sulfate 90 mcg/actuation inhale 1 puff by inhalation route every 4-6 hours as needed Active Gabapentin 600 MG Orally at noon and two capsules in the evening 1 tablet Active Singulair 10 MG take 1 tablet (10 mg) by oral route once daily in the evening Active Zoloft 50 mg Orally Once at bedtime 1 tablet Active TobraDex 0.3-0.1 % Ophthalmic 4 times a day 1 drop into affected eye 6h May, 07 days Active Oxygen Active ZyrTEC 10 mg 1 Tablet by Oral route 1 time per day Active Tricor 145 MG TAKE ONE TABLET BY MOUTH DAILY 30 Active Advair Diskus 250-50 MCG/DOSE inhale 1 puff by inhalation route 2 times per day in the morning and evening approximately 12 hours apart Active Glimepiride 2 MG orally daily 1 tablet 24h 30 Active Amitriptyline HCl 25 MG Orally Once a day at hs 1 tablet May, 30 day(s) Active RESULTS No Results PROCEDURES Procedure Date Ordered Result Body Site [facility] VISIT ESTABLISHED PATIENT July 12, 2016 IMMUNIZATIONS No Known Immunizations MEDICAL (GENERAL) [...]
--- OUTSIDE RECORDS SUMMARY | 2017-03-23 13:25 | XMS REPORT ---
Author Author COREY JUAREZ [facility] Address [address] [place] [address] Care Team Providers Care Product Promoter Retail Pet Name Role Phone COREY JUAREZ Unavailable PROBLEMS Type Condition ICD9-CM Code [id number] Code Onset Dates Condition Status SNOMED Code Problem Neck pain M54.2 Active 47066994 Problem COPD with acute exacerbation J44.1 Active 928856939 Problem Fall from bed, sequela W06.XXXS Active 20424219 Problem Weakness generalized R53.1 Active 40034054 Problem STACY on CPAP G47.33 Active 36877776 Problem Gastroesophageal reflux disease, esophagitis presence not specified K21.9 Active 694300225 Problem Left wrist tendonitis M77.8 Active 840814794 Problem Muscular deconditioning R29.898 Active 988184014 Problem Epigastric pain R10.13 Active 79120601 Problem Gastroesophageal reflux disease without esophagitis K21.9 Active 002109143 Problem Hypoxia R09.02 Active 598553594 Problem History of respiratory failure Z87.09 Active 938556674 Problem Chronic pain G89.29 Active 39391656 Problem COPD (chronic obstructive pulmonary disease) J44.9 Active 12867993 Problem Anxiety F41.9 Active 15893167 Problem Essential hypertension with goal blood pressure less than 130\/85 I10 Active 74645410 Problem Type 2 diabetes mellitus with diabetic neuropathy E11.40 Active 14357296 Problem Depression F32.9 Active 206081849 Problem Respiratory distress R06.00 Active 969447807 Problem Cervical stenosis of spinal canal M48.02 Active 92221435 ALLERGIES Substance Reaction Event Type Date Status [...] CARE Activity Details Follow Up 2 Weeks Reason:pain/DM VITAL SIGNS Height 67 in 2016-03-21 Weight 233 lbs 2016-03-21 Temperature 98.7 degrees Fahrenheit 2016-03-21 Heart Rate 80 bpm 2016-03-21 Respiratory Rate 20 2016-03-21 Oximetry w/ oxygen @ 2L:98 % 2016-03-21 BMI 36.49 kg/m2 2016-03-21 Blood pressure systolic 130 mmHg 2016-03-21 Blood pressure diastolic 70 mmHg 2016-03-21 MEDICATIONS Medication Instructions Dosage Frequency Start Date End Date Duration Status Fish Oil Concentrate 2 Capsule 2 times per day Dec, Active Advair Diskus 250-50 MCG/DOSE inhale 1 puff by inhalation route 2 times per day in the morning and evening approximately 12 hours apart Active Zoloft 100 MG Orally Once at bedtime 1 tablet Active Oxygen Active Gabapentin 600 MG Orally at noon and two capsules in the evening 1 tablet Active Flonase 50 MCG/ACT Nasally Once a day 1 spray in each nostril 24h Aug, 30 day(s) Active Spiriva HandiHaler 18 MCG Inhalation Once a day 24h Active Zoloft 50 mg Orally Once at bedtime 1 tablet Active Centrum Silver Active Singulair 10 MG take 1 tablet (10 mg) by oral route once daily in the evening Active Lipitor 80 MG Orally at hs 1 tablet by Oral route 1 time per day Dec, Active Gabapentin 300 MG TAKE ONE CAPSULE BY MOUTH IN THE MORNING, TWO CAPSULES AT NOON AND TWO CAPSULES IN THE EVENING 30 Active Hydrocodone-Acetaminophen 10-325 MG Orally 4 times a day take 1 tablet 6h Active Albuterol Sulfate 90 mcg/actuation inhale 1 puff by inhalation route every 4-6 hours as needed Active ZyrTEC 10 mg 1 Tablet by Oral route 1 time per day Active DuoNeb 0.5 mg-3 mg(2.5 mg base)/3 mL 1 Nebulize Solution by Inhalation route 4 times per day Active Glimepiride 2 MG orally daily 1 tablet 24h 30 Active Lisinopril 5 MG TAKE ONE TABLET BY MOUTH ONCE DAILY 30 Active Tricor 145 MG TAKE ONE TABLET BY MOUTH DAILY 30 Active Metoprolol Succinate ER 25 MG Orally Once a day 1 tablet 24h Active Butrans 5 MCG/HR Transdermal change patch every 7 days- must last 28 days 1 patch to skin Active MetFORMIN HCl ER 500 MG Orally Once a day 1 tablet with evening meal x 7 days then 2 daily 24h Feb, 30 day(s) Active Omeprazole 40 MG TAKE ONE CAPSULE BY MOUTH ONCE DAILY 30 Active Amitriptyline HCl 100 MG TAKE ONE TABLET BY MOUTH AT BEDTIME 30 Active Lidocaine 5 % Externally to shingles areas qid prn as directed Jan, Active Aspirin 81 mg 1 tablet by Oral route 1 time per day Aug, Active Lorazepam 0.5 MG Orally 2 times a day prn 1 tablet as needed 28 days Active RESULTS Name Result Date Reference Range A1C (IN HOUSE) 2016-03-21 A1C IN HOUSE 8.6 4.3 - 5.6 % Previous A1c 8.1 Lot [id number] Exp date 12/2017 MICROALBUMIN, URINE (IN HOUSE) 2016-03-21 MICROALBUMIN normal Lot # [id number] Exp date 04/23/2017 Clarity clear Color yellow ALB 10 CRE 50 A:C (IN HOUSE) <30 Control Control Lot # Exp date PROCEDURES Procedure Date Ordered Related Diagnosis Body Site MEASURE BLOOD OXYGEN LEVEL Mar 21, 2016 GLYCATED HEMOGLOBIN TEST Mar 21, 2016 [facility] VISIT ESTABLISHED PATIENT Mar 21, 2016 MICROALBUMIN, SEMIQUANT Mar 21, 2016 Office Visit, Est Pt., Level 4 Mar 21, 2016 IMMUNIZATIONS No Known Immunizations
--- NOTE | 2017-03-23 13:52 | ED Fever ---
History of Present Illness General Stated Complaint: POSS PNEUMONIA Source: patient Exam Limitations: no limitations History of Present Illness Time seen by provider: 13:47 Initial Comments The patient is a 66-year-old white female who has been sick with fever and cough since Friday. She has been getting worse steadily. Her states that her temperature was 104.1 minus morning. She has been coughing up UG LY phlegm. She is gotten progressively short of breath. She stopped smoking 15 years ago but was a 2-1/2 pack per day smoker at that time. She uses O2 at home. 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 Associated Symptoms: cough, diaphoresis, muscle aches Allergies and Home Medications Allergies Coded Allergies: dornase lloyd (Verified Allergy, Unknown, RAPID HEART BEAT, 05/25/15) Penicillins (Verified Adverse Reaction, Mild, NAUSEA, 05/25/15) codeine (Verified Adverse Reaction, Mild, NAUSEA, PT TAKES HYDROCODONE AT HOME, 05/25/15) Home Medications Albuterol Sulfate 18 Gm Hfa.aer.ad, 2 PUFF INH Q4H PRN for SHORTNESS OF BREATH, (Reported) Alirocumab 75 Mg/1 Ml Pen.injctr, 75 MG SC EVERY 14 DAYS, (Reported) Aripiprazole 5 Mg Tablet, 2.5 MG PO BID, (Reported) TAKES 1/2 (5MG) TABLET Aspirin 81 Mg Tablet.dr, 81 MG PO DAILY, (Reported) Atorvastatin Calcium 20 Mg Tablet, 20 MG PO HS, (Reported) Buprenorphine 1 Each Patch.tdwk, 1 PATCH TD We, (Reported) Cetirizine HCl 10 Mg Tablet, 10 MG PO DAILY, (Reported) Cholecalciferol (Vitamin D3) 1,000 Unit Capsule, 1,000 UNIT PO DAILY, (Reported) Cyclosporine 1 Each Droperette, 1 DROP OU BID, (Reported) Fenofibrate Nanocrystallized 145 Mg Tablet, 145 MG PO DAILY, (Reported) Fluticasone Propionate 9.9 Ml [place].susp, 1 SPRAY NSEACH DAILY, (Reported) Fluticasone/Salmeterol 1 Each Blst.w.dev, 1 PUFF IH BID, (Reported) Gabapentin 600 Mg Tablet, 600 MG PO 1200, (Reported) Gabapentin 600 Mg Tablet, 1,200 MG PO HS, (Reported) TAKES 2 (600MG) TABLETS Glimepiride 2 Mg Tablet, 2 MG PO DAILY, (Reported) Hydrocodone/Acetaminophen 1 Each Tablet, 1 TAB PO QID PRN for PAIN-MODERATE, ( Reported) Ipratropium/Albuterol Sulfate 3 Ml Ampul.neb, 3 ML IH Q4H PRN for SHORTNESS OF BREATH, (Reported) Lisinopril 5 Mg Tablet, 5 MG PO DAILY, (Reported) Metformin HCl 500 Mg Tab.er.24h, 1,000 MG PO 1730, (Reported) Metoprolol Succinate 25 Mg Tab.er.24h, 25 MG PO DAILY, (Reported) Montelukast Sodium 10 Mg Tablet, 10 MG PO HS, (Reported) Multivit, Calc, Min/Folic Acid 400 Mcg Capsule, 1 CAP PO HS, (Reported) [place]-3/Dha/Epa/Fish Oil 1 Each Capsule, 2,000 MG PO BID, (Reported) TAKES 2 (1000MG) CAPSULES Pantoprazole Sodium 40 Mg Tablet.dr, 40 MG PO BID, (Reported) Sertraline HCl 100 Mg Tablet, 200 MG PO HS, (Reported) TAKES 2 (100MG) TABLETS Sucralfate 1 Gm Tablet, 1 GM PO ACHS PRN for STOMACH UPSET, (Reported) Tiotropium [place] 1 Inh Aerp, 1 CAP IH DAILY, (Reported) Constitutional: see HPI EENTM: nose congestion Respiratory: see HPI, cough, dyspnea on exertion, phlegm, short of breath Cardiovascular: other (tachycardia) Genitourinary: no symptoms reported Musculoskeletal: muscle pain Skin: no symptoms reported Psychiatric/Neurological: No Symptoms Reported Hematologic/Lymphatic: No Symptoms Reported Immunological/Allergic: no symptoms reported Past Cnpgmwn-Nfmwlm-Tmgird Hx Patient Social History Type Used: Cigarettes Former Smoker, Quit: Feb 05, 2003 2nd Hand Smoke Exposure: Yes Recent Foreign Travel: No Contact w/Someone Who Travel: No Recent Hopitalizations: Yes (ER VISIT 07/22/16 FOR ABD PAIN, STATES "I HAVE AN ULCER.") Immunizations Up To Date Tetanus Booster (TDap): Unknown PED Vaccines UTD: Yes Date of Pneumonia Vaccine: Dec 22, 2014 Date of Influenza Vaccine: Dec 21, 2015 Seasonal Allergies Seasonal Allergies: Yes Surgeries History of Surgeries: Yes (C-SPINE, RIGHT RCR, TRACH, eyelid lift) Surgeries: Appendectomy, Cardiac, Coronary Stent, Gallbladder, 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, Orthopedic, Tonsillectomy, Tracheostomy Respiratory History of Respiratory Disorde: Yes (COPD, PLEURISY, WEARS OXYGEN, BRONCHOSPASM , VOCAL CORD SPASM) Respiratory Disorders: Asthma, Pneumonia, Chronic Bronchitis, COPD, Emphysema Currently Using CPAP: No Currently Using BIPAP: Yes Cardiovascular History of Cardiac Disorders: Yes (Cardiac stents x2) Cardiac Disorders: Coronary Artery Disease, High Cholesterol, Hypertension Neurological History of Neurological Disord: No 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 System Hx 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 Disorders: No Sexually Transmitted Disease: No HOST AND HOSTESS History: 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, Menopausal Genitourinary History of Genitourinary Disor: No Genitourinary Disorders: Bladder Infection, Kidney Stones Gastrointestinal History of Gastrointestinal Di: Yes (SPASMODIC COLON) Gastrointestinal Disorders: Gastroesophageal Reflux Musculoskeletal History of Musculoskeletal Dis: Yes (NECK PAIN, CERVICAL STENOSIS, ) Musculoskeletal Disorders: Arthritis, Fibromyalgia, Rheumatoid Arthritis, Chronic Back Pain Endocrine History of Endocrine Disorders: Yes Endocrine Disorders: Diabetes, Non-Insulin dep HEENT History of HEENT Disorders: No Loss of Vision: Denies Hearing Impairment: Denies Cancer History of Cancer: No Psychosocial History of Psychiatric Problem: Yes Behavioral Health Disorders: Anxiety, Depression Integumentary History of Skin or Integumenta: No Blood Transfusions History of Blood Disorders: No Adverse Reaction to a Blood Tr: No Family Medical History Significant Family History: No Pertinent Family Hx Family Medial History: Cancer 03 MOTHER (lung cancer 1987) Cardiovascular disease G8 BROTHER G8 SISTER Diabetes mellitus G8 SISTER Family history: Asthma 03 MOTHER Family history: Cardiovascular disease 03 FATHER Family history: Hypertension 03 MOTHER Family history: Osteoporosis 03 MOTHER History of - respiratory disease Hypertension G8 BROTHER G8 SISTER Respiratory disorder G8 BROTHER (LUNG CA) Stroke 03 MOTHER (1969, stroke paraylsis lower extremies w/c ) Physical Exam Vital Signs Vital Sign - Last 12Hours 03/23/17 13:53 Temp 99.4 Pulse 98 Resp 28 B/P (MAP) 110/64 (79) Pulse Ox 98 O2 Delivery Nasal Cannula Capillary Refill : General Appearance: other (cough and noisy respirations) Eyes: Bilateral Eye Lid Inflammation HEENT: normal ENT inspection Neck: non-tender, full range of motion, supple, normal inspection, carotid bruit Respiratory: respiratory distress, decreased breath sounds, accessory muscle use, rhonchi, stridor Cardiovascular: tachycardia Gastrointestinal: normal bowel sounds, non tender, soft, no organomegaly, no pulsatile mass Extremities: pedal edema (1+) 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 Skin: normal color Lymphatic: no adenopathy Focused Exam Evaluation Lactate Level Laboratory Tests 03/23/17 13:53: Lactic Acid Level 1.21 Lactic Acid Level Laboratory Tests Test 03/23/17 13:53 Lactic Acid Level 1.21 MMOL/L (0.50-2.00) Time of ETT Placement: 0800 Progress/Results/Core Measures Suspected Sepsis SIRS Temperature: Pulse: Respiratory Rate: Laboratory Tests 03/23/17 13:53: White Blood Count 8.1 Blood Pressure / Mean: Laboratory Tests 03/23/17 13:53: Lactic Acid Level 1.21 Laboratory Tests 03/23/17 13:53: Creatinine 1.21, Platelet Count 179, Total Bilirubin 0.8 Results/Orders Lab Results Laboratory Tests Test 03/23/17 13:53 Range/Units White Blood Count 8.1 4.3-11.0 10^3/uL Red Blood Count 4.35 4.35-5.85 10^6/uL Hemoglobin 12.8 11.5-16.0 G/DL Hematocrit 37 35-52 % Mean Corpuscular Volume 85 80-99 FL Mean Corpuscular Hemoglobin 29 25-34 PG Mean Corpuscular Hemoglobin Concent 35 32-36 G/DL Red Cell Distribution Width 14.2 10.0-14.5 % Platelet Count 179 130-400 10^3/uL Mean Platelet Volume 10.2 7.4-10.4 FL Neutrophils (%) (Auto) 67 42-75 % Lymphocytes (%) (Auto) 21 12-44 % Monocytes (%) (Auto) 11 0-12 % Eosinophils (%) (Auto) 1 0-10 % Basophils (%) (Auto) 0 0-10 % Neutrophils # (Auto) 5.5 1.8-7.8 X 10^3 Lymphocytes # (Auto) 1.7 1.0-4.0 X 10^3 Monocytes # (Auto) 0.9 0.0-1.0 X 10^3 Eosinophils # (Auto) 0.1 0.0-0.3 10^3/uL Basophils # (Auto) 0.0 0.0-0.1 10^3/uL Sodium Level 139 135-145 MMOL/L Potassium Level 4.0 3.6-5.0 MMOL/L Chloride Level 104 98-107 MMOL/L Carbon Dioxide Level 20 L 21-32 MMOL/L Anion Gap 15 H 5-14 MMOL/L Blood Urea Nitrogen 18 7-18 MG/DL Creatinine 1.21 0.60-1.30 MG/DL Estimat Glomerular Filtration Rate 45 BUN/Creatinine Ratio 15 Glucose Level 176 H 70-105 MG/DL Lactic Acid Level 1.21 0.50-2.00 MMOL/L Calcium Level 9.5 8.5-10.1 MG/DL Total Bilirubin 0.8 0.1-1.0 MG/DL Aspartate Amino Transf (AST/SGOT) 33 5-34 U/L Alanine Aminotransferase (ALT/SGPT) 34 0-55 U/L Alkaline Phosphatase 52 40-136 U/L Total Protein 7.0 6.4-8.2 GM/DL Albumin 4.2 3.2-4.5 GM/DL My Orders Orders - SIVAN WHITESIDE MD Cbc With Automated Diff (03/23/17 13:46) Comprehensive Metabolic Panel (03/23/17 13:46) Blood Culture (03/23/17 13:46) Influenza A And B Antigens (03/23/17 13:46) Sputum Culture (03/23/17 13:46) Chest 1 View, Ap/Pa Only (03/23/17 13:46) Lactic Acid Analyzer (03/23/17 13:46) Albuterol/Ipra Inhalation Soln (Duoneb I (03/23/17 14:30) Svn Sm Volume Nebulizer Rt-Rfs (03/23/17 14:24) Vital Signs/I&O Vital Sign - Last 12Hours 03/23/17 13:53 Temp 99.4 Pulse 98 Resp 28 B/P (MAP) 110/64 (79) Pulse Ox 98 O2 Delivery Nasal Cannula Capillary Refill : Departure Communication (Admissions) Progress Notes X-ray suggested atelectasis or early infiltrate in the right infrahilar region. Given remainder of symptoms and degree of fever I have spoken to Dr. brenner at [facility] the patient will be admitted Impression Impression: Primary Impression: pneumonia Disposition: ADMITTED INPATIENT Condition: Stable/Unchanged Admissions Decision to Admit Reason: Admit from ER (General) Decision to Admit/Date: Mar 23, 2017 Time/Decision to Admit Time: 15:02 Departure-Patient Inst. Referrals: ALVERTO MAGUIRE DO (PCP) Primary Care Physician COREY JUAREZ (Family) Primary Care Physician SIVAN WHITESIDE MD Mar 23, 2017 13:52
[2017-03-23 14:04] LABS: BASOPHILS % (AUTO) 0 % (0-10); EOSINOPHILS # (AUTO) 0.1 10^3/uL (0.0-0.3); EOSINOPHILS % (AUTO) 1 % (0-10); HEMATOCRIT 37 % (35-52); HEMOGLOBIN 12.8 G/DL (11.5-16.0); LYMPHOCYTES # (AUTO) 1.7 X 10^3 (1.0-4.0); LYMPHOCYTES % (AUTO) 21 % (12-44); MEAN CORPUSCULAR HEMOGLOBIN 29 PG (25-34); MEAN CORPUSCULAR HGB CONC 35 G/DL (32-36); MEAN CORPUSCULAR VOLUME 85 FL (80-99); MEAN PLATELET VOLUME 10.2 FL (7.4-10.4); MONOCYTES # (AUTO) 0.9 X 10^3 (0.0-1.0); MONOCYTES % (AUTO) 11 % (0-12); NEUTROPHILS # (AUTO) 5.5 X 10^3 (1.8-7.8); NEUTROPHILS % (AUTO) 67 % (42-75); PLATELET COUNT 179 10^3/uL (130-400); RED BLOOD COUNT 4.35 10^6/uL (4.35-5.85); RED CELL DISTRIBUTION WIDTH 14.2 % (10.0-14.5); WHITE BLOOD COUNT 8.1 10^3/uL (4.3-11.0)
--- NOTE | 2017-03-23 14:16 | Diagnostic Imaging Report ---
INDICATION: Short of air with cough and congestion. EXAMINATION: Chest, 03/23/2017. COMPARISON: 10/11/2016. FINDINGS: The heart is normal in appearance. Pulmonary vasculature unremarkable. There is mild atelectasis versus early infiltrate in the right infrahilar region correlate with symptoms. The remaining lungs appear to be clear with no effusions noted. There is no pneumothorax. Postoperative change incidentally noted in the cervical spine. IMPRESSION: 1. Right infrahilar atelectasis versus early infiltrate otherwise negative chest. Dictated by: Dictated on workstation # [id number]
[2017-03-23 14:25] LABS: ALBUMIN 4.2 GM/DL (3.2-4.5); BILIRUBIN,TOTAL 0.8 MG/DL (0.1-1.0); CALCIUM 9.5 MG/DL (8.5-10.1); CREATININE SERUM 1.21 MG/DL (0.60-1.30)
[2017-03-23] MEDS ORDERED: RT-ALBUTEROL/IPRATROPIUM 3 ML (DUONEB) VIAL INH ONE (14:30)
[2017-03-23] MEDS ORDERED: cefTRIAXone INJECTION 1,000 MG in NS (IVPB) 50 ML IV ONE (15:15)
[2017-03-23] MEDS ORDERED: ONDANSETRON 4 MG/2 ML (SDV) Z0FRAN ONE (15:48)
[2017-03-23] MEDS ORDERED: ONDANSETRON 4 MG/2 ML (SDV) Z0FRAN IVP ONE (16:00)
[2017-03-23 16:07] VITALS: BP 117/57
[2017-03-23] MEDS ORDERED: ACETAMINOPHEN 500 MG TAB (TYLENOL) PO PRN (16:30)
[2017-03-23] MEDS ORDERED: AZITHROMYCIN 500 MG/NS 250 ML IVPB IV SCH ×2 (16:30)
[2017-03-23] MEDS: OSELTAMIVIR 75 MG (TAMIFLU) BOX OF 10 PO SCH ×2 (16:36→20:16)
[2017-03-23] MEDS: NS IV 1000 ML 1,000 ML IV SCH (16:37)
[2017-03-23 16:48] VITALS: BP 110/64
[2017-03-23] MEDS ORDERED: ARIP10TA17 PO (16:56)
[2017-03-23] MEDS ORDERED: AMIT25TA9 PO (16:56)
[2017-03-23] MEDS ORDERED: MULT400C3 PO (17:14)
[2017-03-23] MEDS ORDERED: RT-ALBUTEROL/IPRATROPIUM 3 ML (DUONEB) VIAL INH PRN (17:15)
[2017-03-23] MEDS: RT-ALBUTEROL/IPRATROPIUM 3 ML (DUONEB) VIAL INH SCH ×2 (18:52→22:20)
[2017-03-23 19:20] VITALS: BP 100/63
[2017-03-23] MEDS ORDERED: SUCRALFATE 1 GM (CARAFATE) TAB PO PRN (22:00)
[2017-03-23] MEDS ORDERED: HYDROcodone/APAP 10 MG/325 MG (LORTAB) TAB PO PRN (22:00)
[2017-03-24 00:25] VITALS: BP 108/65
[2017-03-24] MEDS: RT-ALBUTEROL/IPRATROPIUM 3 ML (DUONEB) VIAL INH SCH ×3 (02:18→10:51)
[2017-03-24] MEDS: NS IV 1000 ML 1,000 ML IV SCH ×2 (03:52→12:30)
[2017-03-24 04:15] VITALS: BP 134/76
[2017-03-24 05:54] LABS: BASOPHILS % (AUTO) 0 % (0-10); EOSINOPHILS % (AUTO) 0 % (0-10); HEMATOCRIT 32 % (35-52); HEMOGLOBIN 10.5 G/DL (11.5-16.0); LYMPHOCYTES # (AUTO) 1.4 X 10^3 (1.0-4.0); LYMPHOCYTES % (AUTO) 30 % (12-44); MEAN CORPUSCULAR HEMOGLOBIN 29 PG (25-34); MEAN CORPUSCULAR HGB CONC 33 G/DL (32-36); MEAN CORPUSCULAR VOLUME 87 FL (80-99); MEAN PLATELET VOLUME 10.3 FL (7.4-10.4); MONOCYTES # (AUTO) 0.6 X 10^3 (0.0-1.0); MONOCYTES % (AUTO) 13 % (0-12); NEUTROPHILS # (AUTO) 2.7 X 10^3 (1.8-7.8); NEUTROPHILS % (AUTO) 57 % (42-75); PLATELET COUNT 141 10^3/uL (130-400); RED BLOOD COUNT 3.61 10^6/uL (4.35-5.85); RED CELL DISTRIBUTION WIDTH 14.8 % (10.0-14.5); WHITE BLOOD COUNT 4.7 10^3/uL (4.3-11.0)
[2017-03-24] MEDS ORDERED: MULTIVIT W/MINERALS TAB (THERAGRAN M) PO SCH (07:00)
[2017-03-24] MEDS ORDERED: ARTIFICAL TEARS 0.4 ML UNIT DOSE (REFRESH PLUS) OU PRN (08:00)
[2017-03-24 08:40] VITALS: BP 129/78
--- NOTE | 2017-03-24 08:49 | Discharge Summary ---
Diagnosis/Chief Complaint Date of Admission Mar 23, 2017 at 15:19 Date of Discharge 03/24/17 Admission Diagnosis Admission Diagnosis Influenza A Fever Dependence on supplemental oxygen COPD Type II Diabetes Mellitus Anxiety HTN Obesity STACY with CPAP use GERD Discharge Diagnosis Influenza A -history of intubation for influenza a few years ago, but currently maintaining sats on her baseline oxygen -Tamiflu 75 mg BID, started 12 PM, will discharge with medication to complete 5 day course given her lung history -given that white count is stable and illness is viral, will discharge to home today -patient cautioned that nebulizers aerosolize the virus, and that no one should be in the room when she uses her nebulizer or for approximately 30 minutes afterwards to help decrease the risk of spread -follow up with Mariah Casillas APRN in 1 week Fever -likely secondary to influenza -tylenol PRN at home and PO hydrate Dependence on supplemental oxygen -maintaining sats on baseline oxygen, continue home O2 therapy COPD -continue meds as prior to admission Type II Diabetes Mellitus -continue meds as prior to admission Anxiety -continue meds as prior to admission HTN -continue meds as prior to admission STACY with CPAP use -continue CPAP use at night with previous settings when asleep GERD -continue meds as prior to admission Chief Complaint/HPI Chief Complaint/HPI The patient is a 66-year-old white female who has been sick with fever and cough since Friday. She has been getting worse steadily. Her states that her temperature was 104.1 this morning. She has been coughing up some phlegm. She reports getting progressively more short of breath. She stopped smoking 15 years ago but was a 2-1/2 pack per day smoker at that time. She uses O2 at home at baseline. Patient reports that yesterday she had sudden onset of fatigue and body aches, in addition to her fever, which spiked as well. She presented to the ED and tested positive for Influenza A. She was placed in observation overnight given her history of supplemental oxygen dependence and history of influenza requiring a ventilator and 3 weeks in the hospital a few years ago. She did receive a flu shot this year. This morning she reports that she still is feeling ill, but better than yesterday, and she would like to go home, as she has oxygen at home and is tolerating PO fluids and medication and feels she would be much more comfortable there. Febrile overnight, Tmax 101.7, no other acute events. No concerns from nursing staff. Discharge Summary-OBS Procedures None. Discharge Physical Examination Allergies: Coded Allergies: dornase lloyd (Verified Allergy, Unknown, RAPID HEART BEAT, 03/23/17) Penicillins (Verified Adverse Reaction, Mild, NAUSEA, 03/23/17) codeine (Verified Adverse Reaction, Mild, NAUSEA, PT TAKES HYDROCODONE AT HOME, 03/23/17) Vitals & I&Os Intake and Output 03/24/17 00:00 Intake Total 2100 ml Balance 2100 ml Vital Sign - Last 12Hours Date Time Temp Pulse Resp B/P (MAP) Pulse Ox O2 Delivery O2 Flow Rate FiO2 03/24/17 08:40 97.2 72 18 129/78 (95) 97 Nasal Cannula 2.00 General Appearance: Alert, Oriented X3, Cooperative, No Acute Distress HEENT: Atraumatic, PERRLA, EOMI, Mucous Memb Moist/[place] Respiratory: Clear to Auscultation, Other (decreased in bilateral bases) Cardiovascular: Regular Rate, Normal S1, Normal S2 Abdominal: Normal Bowel Sounds, Soft, No Tenderness Extremities: No Clubbing, No Cyanosis Skin: No Rashes, No Significant Lesion Neuro: Normal Speech, Normal Tone, Cranial Nerves 3-12 NL Psych/Mental Status: Mental Status NL, Mood NL Hospital Course see HPI and Final Diagnosis Labs Laboratory Tests 03/23/17 13:53: White Blood Count 8.1, Red Blood Count 4.35, Hemoglobin 12.8, Hematocrit 37, Mean Corpuscular Volume 85, Mean Corpuscular Hemoglobin 29, Mean Corpuscular Hemoglobin Concent 35, Red Cell Distribution Width 14.2, Platelet Count 179, Mean Platelet Volume 10.2, Neutrophils (%) (Auto) 67, Lymphocytes (%) (Auto) 21 , Monocytes (%) (Auto) 11, Eosinophils (%) (Auto) 1, Basophils (%) (Auto) 0, Neutrophils # (Auto) 5.5, Lymphocytes # (Auto) 1.7, Monocytes # (Auto) 0.9, Eosinophils # (Auto) 0.1, Basophils # (Auto) 0.0, Sodium Level 139, Potassium Level 4.0, Chloride Level 104, Carbon Dioxide Level 20L, Anion Gap 15H, Blood Urea Nitrogen 18, Creatinine 1.21, Estimat Glomerular Filtration Rate 45, BUN/ Creatinine Ratio 15, Glucose Level 176H, Lactic Acid Level 1.21, Calcium Level 9.5, Total Bilirubin 0.8, Aspartate Amino Transf (AST/SGOT) 33, Alanine Aminotransferase (ALT/SGPT) 34, Alkaline Phosphatase 52, Total Protein 7.0, Albumin 4.2 03/24/17 04:53: White Blood Count 4.7, Red Blood Count 3.61L, Hemoglobin 10.5L, Hematocrit 32L, Mean Corpuscular Volume 87, Mean Corpuscular Hemoglobin 29, Mean Corpuscular Hemoglobin Concent 33, Red Cell Distribution Width 14.8H, Platelet Count 141, Mean Platelet Volume 10.3, Neutrophils (%) (Auto) 57, Lymphocytes (%) (Auto) 30 , Monocytes (%) (Auto) 13H, Eosinophils (%) (Auto) 0, Basophils (%) (Auto) 0, Neutrophils # (Auto) 2.7, Lymphocytes # (Auto) 1.4, Monocytes # (Auto) 0.6, Eosinophils # (Auto) 0.0, Basophils # (Auto) 0.0 Microbiology 03/23/17 Influenza Types A,B Antigen (CASSIE) - Final, Complete Radiology Reviewed Right infrahilar atelectasis versus early infiltrate otherwise negative chest. Discussion & Recommendations see HPI and final diagnosis for details. patient with atelectasis vs early infiltrate per prelim radiology read; per my review patient does not appear to have pneumonia, suspect atelectasis and fever is due to influenza. will stop azithromycin at discharge. Discharge Condition at discharge Stable Instructions to patient/family Please see electronic discharge instructions given to patient. Discharge Medications Reviewed and agree with Discharge Medication list on patient's Discharge Instruction sheet Clinical Quality Measures DVT/VTE Risk/Contraindication: Risk Factor Score Per Nursin RFS Level Per Nursing on Admit: 4+=Very High YANDEL VERONICA DO Mar 24, 2017 08:49
[2017-03-24] MEDS ORDERED: AMITRIPTYLINE 25 MG (ELAVIL) TAB PO SCH (09:00)
[2017-03-24] MEDS ORDERED: PANTOPRAZOLE 40 MG (PROTONIX) TAB PO SCH (09:00)
[2017-03-24] MEDS ORDERED: NON-FORMULARY MEDICATION 1 EA EA (Cholecalciferol (Vitamin D3) (Vitamin D3) 1,000 UNIT) PO SCH (09:00)
[2017-03-24] MEDS ORDERED: NON-FORMULARY MEDICATION 1 EA EA (Cetirizine HCl 10 MG) PO SCH (09:00)
[2017-03-24] MEDS ORDERED: ASPIRIN E.C. 81 MG (ECOTRIN) TAB PO SCH (09:00)
[2017-03-24] MEDS ORDERED: FOLIC ACID PO SCH (09:00)
[2017-03-24] MEDS ORDERED: VITAMIN D3 1,000 UNITS (CHOLECALCIFEROL) TABLET PO SCH (09:00)
[2017-03-24] MEDS ORDERED: NON-FORMULARY MEDICATION 1 EA EA (Omega-3/Dha/Epa/Fish Oil (Fish Oil 1,000 mg Softgel) 2,0 PO SCH (09:00)
[2017-03-24] MEDS ORDERED: VIT K1 PO SCH (09:00)
[2017-03-24] MEDS ORDERED: ARIPIPRAZOLE 10 MG (ABILIFY) TAB PO SCH (09:00)
[2017-03-24] MEDS ORDERED: FENOFIBRATE 134 MG (LOFIBRA) CAPSULE PO SCH (09:00)
[2017-03-24] MEDS ORDERED: OMEGA 3 (FISH OIL) 1000 MG CAP PO SCH (09:00)
[2017-03-24] MEDS ORDERED: [UNRECOGNIZED DRUG - OTHER] PO SCH (09:00)
[2017-03-24] MEDS ORDERED: LORATADINE (CLARITIN) 10 MG TAB PO SCH (09:00)
[2017-03-24] MEDS ORDERED: GLIMEPIRIDE 2 MG (AMARYL) TAB PO SCH (09:00)
[2017-03-24] MEDS ORDERED: lisINopril 5 MG (PRINIVIL) TABLET PO SCH (09:00)
[2017-03-24] MEDS ORDERED: MULTIVIT MIN PO SCH (09:00)
[2017-03-24] MEDS: OSELTAMIVIR 75 MG (TAMIFLU) BOX OF 10 PO SCH (09:26)
[2017-03-24] MEDS ORDERED: GABAPENTIN 600 MG (NEURONTIN) TAB PO SCH ×2 (12:00→21:00)
[2017-03-24] MEDS ORDERED: OSLT75C PO (13:19)
--- NOTE | 2017-03-24 13:22 | Discharge Instructions ---
Discharge [facility] Discharge Medications New, Converted or Re-Newed RX: RX Given to Pt/Family New Medications: Oseltamivir Phosphate (Tamiflu) 75 Mg Cap 1 CAP PO BID for 4 Days, #7 CAP 0 Refills Continued Medications: Albuterol Sulfate (Ventolin Hfa) 18 Gm Hfa.aer.ad 2 PUFF INH Q4H PRN for SHORTNESS OF BREATH, INHALER Amitriptyline HCl (Amitriptyline HCl) 25 Mg Tablet 25 MG PO DAILY Aripiprazole (Aripiprazole) 10 Mg Tablet 5 MG PO BID TAKES 1/2 OF A (10 MG) TABLET Aspirin (Aspir 81) 81 Mg Tablet.dr 81 MG PO DAILY, TAB Atorvastatin Calcium (Atorvastatin Calcium) 20 Mg Tablet 20 MG PO HS, TAB Buprenorphine (Butrans) 1 Each Patch.tdwk 1 PATCH TD We, EA Cetirizine HCl (Cetirizine HCl) 10 Mg Tablet 10 MG PO DAILY, TAB Cholecalciferol (Vitamin D3) (Vitamin D3) 1,000 Unit Capsule 1000 UNIT PO DAILY, CAP Cyclosporine (Restasis) 1 Each Droperette 1 DROP OU BID, EA Fenofibrate Nanocrystallized (Fenofibrate) 145 Mg Tablet 145 MG PO DAILY, TAB Gabapentin (Gabapentin) 600 Mg Tablet 600 MG PO 1200, TAB Gabapentin (Gabapentin) 600 Mg Tablet 1200 MG PO HS, TAB TAKES 2 (600MG) TABLETS Glimepiride (Glimepiride) 2 Mg Tablet 2 MG PO DAILY, TAB Hydrocodone/Acetaminophen (Hydrocodon-Acetaminophn 10-325) 1 Each Tablet 1 TAB PO QID PRN for PAIN-MODERATE, TAB Ipratropium/Albuterol Sulfate (Iprat-Albut 0.5-3(2.5) mg/3 ml) 3 Ml Ampul.neb 3 ML IH Q4H PRN for SHORTNESS OF BREATH, EACH Lisinopril (Lisinopril) 5 Mg Tablet 5 MG PO DAILY, TAB Metformin HCl (Metformin HCl ER) 500 Mg Tab.er.24h 1000 MG PO 1730, TAB Metoprolol Succinate (Metoprolol Succinate) 25 Mg Tab.er.24h 25 MG PO DAILY, TAB Multivit-Min/Folic Acid/Vit K1 (Multi For Her 50 Plus Softgel) 1 Each Capsule 1 CAP PO DAILY, CAP [place]-3/Dha/Epa/Fish Oil (Fish Oil 1,000 mg Softgel) 1 Each Capsule 2000 MG PO BID, CAP TAKES 2 (1000MG) CAPSULES Pantoprazole Sodium (Pantoprazole Sodium) 40 Mg Tablet.dr 40 MG PO BID, TAB Sertraline HCl (Sertraline HCl) 100 Mg Tablet 200 MG PO HS, TAB TAKES 2 (100MG) TABLETS Sucralfate (Sucralfate) 1 Gm Tablet 1 GM PO ACHS PRN for STOMACH UPSET, TAB Patient Instructions Patient Instructions Do not have anyone else in room while doing nebulizer treatment or for 30 minutes after treatment is finished to help prevent spread of virus. Keep appointments as scheduled. Take medication as prescribed. Goal/Follow Up Appt: Clinic will contact patient to schedule follow up with Mariah WATSON Return to The Hospital For: severe shortness of breath unrelieved by medications and oxygen at home, chest pain or pressure, nausea or vomiting that makes you unable to keep down ice chips/medications/sips of water, or any other emergent concerns Activity & Diet Discharge Diet: ADA Diet, Cardiac Diet Activity as Tolerated: Yes YANDEL VERONICA DO Mar 24, 2017 13:22
[2017-03-24] MEDS ORDERED: AZITHROMYCIN 250 MG TAB (ZITHROMAX) PO SCH (15:00)
[2017-03-24] MEDS ORDERED: cefTRIAXone 1 GM/NS 50 ML IVPB IV SCH ×2 (16:00)
[2017-03-24] MEDS ORDERED: metFORMIN XR 500 MG (GLUCOPHAGE XR) TAB PO SCH (17:30)
[2017-03-24] MEDS ORDERED: ATORVASTATIN 20 MG (LIPITOR) TABLET PO SCH (21:00)
[2017-03-24] MEDS ORDERED: SERTRALINE 100 MG (ZOLOFT) TAB PO SCH (21:00)
[2017-03-26] MEDS ORDERED: BUPRENORPHINE TD SCH (22:00)
== END 2017-03-24 13:19 | disposition home or self-care (01) ==
LOC: EDUNIT# 13:06 → ER 13:07 → UNDOADMOB 15:19 → 4TH 15:19 → UNDODISOB 03-24 14:58
PROVIDERS: ADMIT Family Medicine; ATTEND Family Medicine
DX: J10.1 Influenza due to other identified influenza virus with other respiratory manifestations (principal); R50.9 Fever, unspecified; J98.11 Atelectasis; J43.9 Emphysema, unspecified; J45.909 Unspecified asthma, uncomplicated; I10 Essential (primary) hypertension; E11.9 Type 2 diabetes mellitus without complications; I25.10 Atherosclerotic heart disease of native coronary artery without angina pectoris; G47.33 Obstructive sleep apnea (adult) (pediatric); K21.9 Gastro-esophageal reflux disease without esophagitis; F41.9 Anxiety disorder, unspecified; F32.9 Major depressive disorder, single episode, unspecified; E66.9 Obesity, unspecified; E78.00 Pure hypercholesterolemia, unspecified; M79.7 Fibromyalgia; M48.02 Spinal stenosis, cervical region; Z99.81 Dependence on supplemental oxygen; Z87.891 Personal history of nicotine dependence; Z79.84 Long term (current) use of oral hypoglycemic drugs; Z95.5 Presence of coronary angioplasty implant and graft; Z68.31 Body mass index [BMI] 31.0-31.9, adult
CPT/HCPCS: 36415; 71010; 80053; 83605; 85025; 87040; 87070; 87205; 87804; 94640; 94760; 99284; G0378

== ENCOUNTER 2017-04-10 13:02 | Inpatient (IN) | payer MEDICARE, MEDICAID ==
[~2017-04-10] VITALS: Ht 172.7 cm; Wt 94.3 kg
[~2017-04-10 13:02] MED LIST changes: +ARIP10TA17 PO; +OSLT75C PO
[2017-04-10] MEDS ORDERED: methylPREDNISolone 125 MG (Solu-MEDROL) VIAL IVP ONE (15:30)
[2017-04-10] MEDS ORDERED: DEXAMETHASONE 4 MG/ML SDV (DECADRON) IH ONE (15:30)
[2017-04-10] MEDS ORDERED: RT-ALBUTEROL/IPRATROPIUM 3 ML (DUONEB) VIAL INH ONE (15:30)
[2017-04-10 15:35] LABS: BASOPHILS % (AUTO) 0 % (0-10); EOSINOPHILS # (AUTO) 0.1 10^3/uL (0.0-0.3); EOSINOPHILS % (AUTO) 1 % (0-10); HEMATOCRIT 36 % (35-52); HEMOGLOBIN 12.5 G/DL (11.5-16.0); LYMPHOCYTES # (AUTO) 2.2 X 10^3 (1.0-4.0); LYMPHOCYTES % (AUTO) 25 % (12-44); MEAN CORPUSCULAR HEMOGLOBIN 30 PG (25-34); MEAN CORPUSCULAR HGB CONC 35 G/DL (32-36); MEAN CORPUSCULAR VOLUME 86 FL (80-99); MEAN PLATELET VOLUME 10.1 FL (7.4-10.4); MONOCYTES % (AUTO) 12 % (0-12); NEUTROPHILS # (AUTO) 5.4 X 10^3 (1.8-7.8); NEUTROPHILS % (AUTO) 62 % (42-75); PLATELET COUNT 199 10^3/uL (130-400); RED BLOOD COUNT 4.19 10^6/uL (4.35-5.85); RED CELL DISTRIBUTION WIDTH 14.2 % (10.0-14.5); WHITE BLOOD COUNT 8.7 10^3/uL (4.3-11.0)
[2017-04-10 15:51] LABS: ALBUMIN 4.4 GM/DL (3.2-4.5); CALCIUM 9.6 MG/DL (8.5-10.1); CREATININE SERUM 0.98 MG/DL (0.60-1.30); POTASSIUM 4.1 MMOL/L (3.6-5.0); TOTAL PROTEIN 7.6 GM/DL (6.4-8.2)
--- NOTE | 2017-04-10 16:10 | Diagnostic Imaging Report ---
INDICATION: Cough. EXAMINATION: Erect AP chest at 3:44. FINDINGS: The heart size is within normal limits and stable when compared to 03/23/2017. The prior study did note right infrahilar atelectasis/infiltrate. On this exam there are a few crowded bronchovascular markings in the right infrahilar region but I am not certain that there is any pneumonia or atelectasis present in this area. The right upper lung and left lung are clear. The mediastinum is not widened. The osseous structures are intact. The orthopedic hardware overlying the cervicothoracic junction, seen previously, is again evident. IMPRESSION: 1. There are a few crowded bronchovascular markings in the right infrahilar region but there is no clear evidence for pneumonia or atelectasis in this area. 2. There is no acute cardiopulmonary abnormality noted otherwise. Dictated by: Dictated on workstation # [id number]
[2017-04-10] MEDS ORDERED: CEFEPIME INJECTION 2,000 MG in NS (IVPB) 50 ML IV ONE (16:30)
[2017-04-10] MEDS ORDERED: ONDANSETRON 4 MG/2 ML (SDV) Z0FRAN IVP ONE (16:30)
[2017-04-10] MEDS ORDERED: ACETAMINOPHEN 500 MG TAB (TYLENOL) PO ONE (16:45)
[2017-04-10] MEDS ORDERED: IBUPROFEN 800 MG (MOTRIN) TAB PO ONE (16:45)
--- NOTE | 2017-04-10 17:57 | ED Cough/URI ---
General Chief Complaint: Cough/Cold/Flu Symptoms Stated Complaint: PNEUMONIA;HYPOXIA;COPD EXACERBATION Nursing Triage Note: c/o cough/fever/weakness. Onset 2-3 days ago. Source: patient History of Present Illness Date Seen by Provider: Apr 10, 2017 Time Seen by Provider: 15:15 Initial Comments PT ARRIVES VIA POV FROM HOME PT STATES SHE HAS HAD FEVER UP TO 103, BODY ACHES, AND PRODUCTIVE COUGH X 3-4 DAYS SPUTUM IS YELLOW-BROWN IN COLOR HAS COPD,BUT HAS HAD INCREASED SHORTNESS OF BREATH THIS WEEK AND IS MUCH WORSE WITH COUGHING ALSO HAVING CHEST DISCOMFORT WITH COUGHING PT HAS INHALER AT HOME, BUT HAS NOT USED FOR A LONG TIME. HAS NEBULIZER,BUT HAS NOT USED FOR A FEW DAYS, AND ONLY USED 1 TIME--RARELY USES IT. PT WEARS HOME O2 AT 2L/NC CONTINUOUSLY PT HAS SLEEP APNEA AND WEARS CPAP AT HS PT HAS NOT HAD ANY MEDICATIONS TODAY BECAUSE SHE FELT TOO SICK --HAS ALSO HAD ALOT OF NAUSEA AND SPITTING UP TODAY. DID TAKE MEDICATIONS YESTERDAY PT WAS ADMITTED OVERNIGHT 03/23/17 FOR PNEUMONIA AND INFLUENZA A --HAD THESE SAME SYMPTOMS AT THAT TIME. WAS TREATED WITH TAMIFLU. 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 PCP: CASSY, STACEY JUAREZ Allergies and Home Medications Allergies Coded Allergies: dornase lloyd (Verified Allergy, Unknown, RAPID HEART BEAT, 03/23/17) Penicillins (Verified Adverse Reaction, Mild, NAUSEA, 03/23/17) codeine (Verified Adverse Reaction, Mild, NAUSEA, PT TAKES HYDROCODONE AT HOME, 03/23/17) Home Medications Albuterol Sulfate 18 Gm Hfa.aer.ad, 2 PUFF INH Q4H PRN for SHORTNESS OF BREATH, (Reported) Amitriptyline HCl 25 Mg Tablet, 25 MG PO DAILY, (Reported) Aripiprazole 10 Mg Tablet, 5 MG PO BID, (Reported) TAKES 1/2 OF A (10 MG) TABLET Aspirin 81 Mg Tablet.dr, 81 MG PO DAILY, (Reported) Atorvastatin Calcium 20 Mg Tablet, 20 MG PO HS, (Reported) Buprenorphine 1 Each Patch.tdwk, 1 PATCH TD We, (Reported) Cetirizine HCl 10 Mg Tablet, 10 MG PO DAILY, (Reported) Cholecalciferol (Vitamin D3) 1,000 Unit Capsule, 1,000 UNIT PO DAILY, (Reported) Cyclosporine 1 Each Droperette, 1 DROP OU BID, (Reported) Fenofibrate Nanocrystallized 145 Mg Tablet, 145 MG PO DAILY, (Reported) Gabapentin 600 Mg Tablet, 600 MG PO 1200, (Reported) Gabapentin 600 Mg Tablet, 1,200 MG PO HS, (Reported) TAKES 2 (600MG) TABLETS Glimepiride 2 Mg Tablet, 2 MG PO DAILY, (Reported) Hydrocodone/Acetaminophen 1 Each Tablet, 1 TAB PO QID PRN for PAIN-MODERATE, ( Reported) Ipratropium/Albuterol Sulfate 3 Ml Ampul.neb, 3 ML IH Q4H PRN for SHORTNESS OF BREATH, (Reported) Lisinopril 5 Mg Tablet, 5 MG PO DAILY, (Reported) Metformin HCl 500 Mg Tab.er.24h, 1,000 MG PO 1730, (Reported) Metoprolol Succinate 25 Mg Tab.er.24h, 25 MG PO DAILY, (Reported) Multivit-Min/Folic Acid/Vit K1 1 Each Capsule, 1 CAP PO DAILY, (Reported) Melvern-3/Dha/Epa/Fish Oil 1 Each Capsule, 2,000 MG PO BID, (Reported) TAKES 2 (1000MG) CAPSULES Oseltamivir Phosphate 75 Mg Cap, 1 CAP PO BID for 4 Days, #7 Ref 0 Prescribed by: YANDEL VERONICA on 03/24/17 1319 Pantoprazole Sodium 40 Mg Tablet.dr, 40 MG PO BID, (Reported) Sertraline HCl 100 Mg Tablet, 200 MG PO HS, (Reported) TAKES 2 (100MG) TABLETS Sucralfate 1 Gm Tablet, 1 GM PO ACHS PRN for STOMACH UPSET, (Reported) Constitutional: see HPI, chills, fever, malaise, weakness EENTM: nose congestion Respiratory: see HPI, cough, dyspnea on exertion, orthopnea, phlegm, short of breath, wheezing Cardiovascular: see HPI, chest pain Gastrointestinal: see HPI, No abdominal pain, loss of appetite, nausea, vomiting Genitourinary: no symptoms reported Musculoskeletal: see HPI (BODY ACHES) Skin: no symptoms reported Psychiatric/Neurological: See HPI, Headache Hematologic/Lymphatic: No Symptoms Reported Immunological/Allergic: no symptoms reported Past Mestncf-Sznbbu-Xlciwx Hx Patient Social History Alcohol Use: Rarely Uses Recreational Drug Use: No Smoking Status: Former Smoker (03/25- PPD) Type Used: Cigarettes (03/25 - PPD) Former Smoker, Quit: Feb 05, 2003 2nd Hand Smoke Exposure: Yes Recent Foreign Travel: No Contact w/Someone Who Travel: No Recent Infectious Disease Expo: No Recent Hopitalizations: No Immunizations Up To Date Tetanus Booster (TDap): Unknown PED Vaccines UTD: Yes Date of Pneumonia Vaccine: Feb 21, 2017 Date of Influenza Vaccine: Dec 22, 2016 Seasonal Allergies Seasonal Allergies: Yes Surgeries History of Surgeries: Yes (C-SPINE SURGERY, RIGHT ROTATOR CUFF REPAIR; TRACH 01/2015-06/2015 FOR VOCAL CORD SPASMS; EYELID LIFT; LEFT DEQUERVAIN'S RELEASE; COLONOSCOPIES/POLYPECTOMY; CARDIAC CATHS-STENTS X 2) Surgeries: Appendectomy, Cardiac, Coronary Stent, Gallbladder, 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, Orthopedic, Tonsillectomy, Tracheostomy Respiratory History of Respiratory Disorde: Yes (COPD, PLEURISY, WEARS OXYGEN 2L/NC CONTINUOUSLY, BRONCHOSPASM; TRACH 01/2015-06/2015 FOR VOCAL CORD SPASM; VENTILATOR X 3 WEEKS 09/2016 FOR PNEUMONIA) Respiratory Disorders: Asthma, Pneumonia, Chronic Bronchitis, COPD, Emphysema Currently Using CPAP: No Currently Using BIPAP: No Cardiovascular History of Cardiac Disorders: Yes (Cardiac stents x2) Cardiac Disorders: Coronary Artery Disease, High Cholesterol, Hypertension Neurological History of Neurological Disord: No 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 System Hx 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 Disorders: No Sexually Transmitted Disease: No [employer] F[employer] WORKER History: 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, Menopausal Genitourinary History of Genitourinary Disor: Yes Genitourinary Disorders: Bladder Infection, Kidney Stones Gastrointestinal History of Gastrointestinal Di: Yes (SPASMODIC COLON) Gastrointestinal Disorders: Gastroesophageal Reflux, Chronic Diarrhea, Irritable Bowel Musculoskeletal History of Musculoskeletal Dis: Yes (NECK PAIN, CERVICAL STENOSIS, ) Musculoskeletal Disorders: Arthritis, Fibromyalgia, Rheumatoid Arthritis, Chronic Back Pain Endocrine History of Endocrine Disorders: Yes Endocrine Disorders: Diabetes, Non-Insulin dep HEENT History of HEENT Disorders: Yes (VOCAL CORD SPASM/LARYNGOSPASM;GLASSES;DENTURES ) Loss of Vision: Denies Hearing Impairment: Denies Cancer History of Cancer: No Psychosocial History of Psychiatric Problem: Yes Behavioral Health Disorders: Anxiety, Depression Integumentary History of Skin or Integumenta: No Blood Transfusions History of Blood Disorders: No Adverse Reaction to a Blood Tr: No Family Medical History Family Medial History: Cancer 03 MOTHER (lung cancer 1987) Cardiovascular disease G8 BROTHER G8 SISTER Diabetes mellitus G8 SISTER Family history: Asthma 03 MOTHER Family history: Cardiovascular disease 03 FATHER Family history: Hypertension 03 MOTHER Family history: Osteoporosis 03 MOTHER History of - respiratory disease Hypertension G8 BROTHER G8 SISTER Respiratory disorder G8 BROTHER (LUNG CA) Stroke 03 MOTHER (1969,s stroke paraylsis lower extremies w/c ) Physical Exam Vital Signs Vital Sign - Last 12Hours 04/10/17 04/10/17 15:10 16:49 Temp 103.5 Pulse 95 Resp 22 B/P (MAP) 133/70 (91) Pulse Ox 95 O2 Flow Rate 2.00 Capillary Refill : Less Than 3 Seconds General Appearance: mild distress, obese, other (FREQUENT VERY HARSH, LOOSE/ MOIST COUGH; MILDLY DYSPNEIC, ESPECIALLY WITH COUGHING; DIFFUSE AUDIBLE RHONCHI FROM DOORWAY) HEENT: PERRL/EOMI, other (PERIORBITAL EDEMA) Neck: normal inspection Respiratory: respiratory distress, decreased breath sounds, accessory muscle use, rales, rhonchi, wheezing, other (AUDIBLE RHONCHI FROM DOORWAY; ) Cardiovascular: regular rate, rhythm, no murmur Gastrointestinal: normal bowel sounds, non tender, soft Extremities: normal range of motion, non-tender, no calf tenderness, normal capillary refill, pedal edema (TRACE BILATERALLY) Neurologic/Psychiatric: gold stamper II-XII nml as tested, no motor/sensory deficits, alert, normal mood/affect, oriented x 3 Skin: normal color, warm/dry Focused Exam Evaluation Lactate Level Laboratory Tests 04/10/17 15:21: Lactic Acid Level 1.37 Lactic Acid Level Laboratory Tests Test 04/10/17 15:21 Lactic Acid Level 1.37 MMOL/L (0.50-2.00) Time of ETT Placement: 0800 Progress/Results/Core Measures Suspected Sepsis Recent Fever Within 48 Hours: Yes Infection Criteria Present: Suspected New Infection New/Unexplained Altered Menta: Yes Sepsis Screen: Possible Severe Sepsis Risk Sepsis Diagnosis: SIRS Temperature:103.5 Pulse: 95 Respiratory Rate: 22 Laboratory Tests 04/10/17 15:21: White Blood Count 8.7 Blood Pressure 133 /70 Mean: 91 Laboratory Tests 04/10/17 15:21: Lactic Acid Level 1.37 Laboratory Tests 04/10/17 15:21: Creatinine 0.98, Platelet Count 199, Total Bilirubin 1.0 Results/Orders Lab Results Laboratory Tests Test 04/10/17 15:21 Range/Units White Blood Count 8.7 4.3-11.0 10^3/uL Red Blood Count 4.19 L 4.35-5.85 10^6/uL Hemoglobin 12.5 11.5-16.0 G/DL Hematocrit 36 35-52 % Mean Corpuscular Volume 86 80-99 FL Mean Corpuscular Hemoglobin 30 25-34 PG Mean Corpuscular Hemoglobin Concent 35 32-36 G/DL Red Cell Distribution Width 14.2 10.0-14.5 % Platelet Count 199 130-400 10^3/uL Mean Platelet Volume 10.1 7.4-10.4 FL Neutrophils (%) (Auto) 62 42-75 % Lymphocytes (%) (Auto) 25 12-44 % Monocytes (%) (Auto) 12 0-12 % Eosinophils (%) (Auto) 1 0-10 % Basophils (%) (Auto) 0 0-10 % Neutrophils # (Auto) 5.4 1.8-7.8 X 10^3 Lymphocytes # (Auto) 2.2 1.0-4.0 X 10^3 Monocytes # (Auto) 1.0 0.0-1.0 X 10^3 Eosinophils # (Auto) 0.1 0.0-0.3 10^3/uL Basophils # (Auto) 0.0 0.0-0.1 10^3/uL Sodium Level 138 135-145 MMOL/L Potassium Level 4.1 3.6-5.0 MMOL/L Chloride Level 103 98-107 MMOL/L Carbon Dioxide Level 21 21-32 MMOL/L Anion Gap 14 5-14 MMOL/L Blood Urea Nitrogen 17 7-18 MG/DL Creatinine 0.98 0.60-1.30 MG/DL Estimat Glomerular Filtration Rate 57 BUN/Creatinine Ratio 17 Glucose Level 126 H 70-105 MG/DL Lactic Acid Level 1.37 0.50-2.00 MMOL/L Calcium Level 9.6 8.5-10.1 MG/DL Magnesium Level 2.0 1.8-2.4 MG/DL Total Bilirubin 1.0 0.1-1.0 MG/DL Aspartate Amino Transf (AST/SGOT) 25 5-34 U/L Alanine Aminotransferase (ALT/SGPT) 32 0-55 U/L Alkaline Phosphatase 56 40-136 U/L B-Type Natriuretic Peptide 19.5 <100.0 PG/ML Total Protein 7.6 6.4-8.2 GM/DL Albumin 4.4 3.2-4.5 GM/DL Micro Results Microbiology 04/10/17 Influenza Types A,B Antigen (CASSIE) - Final, Complete My Orders Orders - DUSTIN ALTAMIRANO DO BNP (04/10/17 15:21) Magnesium (04/10/17 15:21) Sputum Culture (04/10/17 15:21) Albuterol/Ipra Inhalation Soln (Duoneb I (04/10/17 15:30) Dexamethasone Injection (Decadron Inject (04/10/17 15:30) Rt Request For Service (04/10/17 15:21) Svn Sm Volume Nebulizer Rt-Rfs (04/10/17 15:21) Methylprednisolone Sod Succ (Solu-Medrol (04/10/17 15:30) Chest 1 View, Ap/Pa Only (04/10/17 15:28) Ondansetron Injection (Zofran Injectio (04/10/17 16:30) Cefepime Injection (Maxipime Injection) (04/10/17 16:30) Acetaminophen Tablet (Tylenol Tablet) (04/10/17 16:45) Ibuprofen Tablet (Motrin Tablet) (04/10/17 16:45) Medications Given in ED Current Medications Medications Dose Ordered Sig/Dominique Route Start Time Stop Time Status Last Admin Dose Admin Acetaminophen 1,000 mg ONCE ONCE PO 04/10/17 16:45 04/10/17 16:46 DC 04/10/17 17:33 1,000 MG Albuterol/ Ipratropium 3 ml ONCE ONCE INH 04/10/17 15:30 04/10/17 15:31 DC 04/10/17 16:48 3 ML Cefepime HCl 2000 mg/Sodium Chloride 50 ml @ 100 mls/hr ONCE ONCE IV 04/10/17 16:30 04/10/17 16:59 DC 04/10/17 17:33 100 MLS/HR Dexamethasone Sodium Phosphate 20 mg ONCE ONCE IH 04/10/17 15:30 04/10/17 15:31 DC 04/10/17 16:48 20 MG Ibuprofen 800 mg ONCE ONCE PO 04/10/17 16:45 04/10/17 16:46 DC 04/10/17 17:32 800 MG Methylprednisolone Sodium Succinate 125 mg ONCE ONCE IVP 04/10/17 15:30 04/10/17 15:31 DC 04/10/17 16:26 125 MG Ondansetron HCl 8 mg ONCE ONCE IVP 04/10/17 16:30 04/10/17 16:31 DC 04/10/17 17:33 8 MG Vital Signs/I&O Vital Sign - Last 12Hours 04/10/17 04/10/17 04/10/17 04/10/17 15:10 16:49 17:32 17:33 Temp 103.5 103.5 103.5 Pulse 95 Resp 22 B/P (MAP) 133/70 (91) Pulse Ox 95 93 O2 Flow Rate 2.00 Capillary Refill : Less Than 3 Seconds Blood Pressure Mean: 91 Progress Note : Progress Note O2 INCREASED TO 4L/NC O2 SATS 90% ON 2L/NC--SATS REMAINED AROUND 94% ON 4L/NC MILD IMPROVEMENT WITH NEB TREATMENTS, BUT STILL WITH SIGNIFICANT RHONCHI AND WHEEZING AND MILD DYSPNEA CONTINUED TO HAVE NAUSEA,NO VOMITING --TEMPORARILY EASED WITH ZOFRAN SIGNIFICANT COUGH CONTINUED, BUT SOMEWHAT IMPROVED WITH TESSALON AND ROBITUSSIN DM Diagnostic Imaging Comments CXR--RIGHT INFRAHILAR INCREASED MARKINGS, BUT NO DEFINITE CONSOLIDATION OR ATELECTASIS--PER RADIOLOGIST REPORT @ 1625 Reviewed: Reviewed by Me Departure Communication (Admissions) Progress Notes 626--SPOKE WITH DR. ALVAREZ, ACCEPTS PT FOR ADMIT. Impression Impression: Primary Impression: Pneumonia Additional Impressions: COPD exacerbation Hypoxia NIDDM Disposition: 09 ADMITTED INPATIENT Condition: Stable Admissions Decision to Admit Reason: Admit from ER (General) Decision to Admit/Date: Apr 10, 2017 Time/Decision to Admit Time: 16:30 Departure-Patient Inst. Referrals: ALVERTO MAGUIRE DO (PCP) Primary Care Physician COREY JUAREZ (Family) Primary Care Physician DUSTIN ALTAMIRANO DO Apr 10, 2017 17:57
[2017-04-10] MEDS ORDERED: guaiFENesin/DM (ROBITUSSIN DM) 10 ML UDC PO PRN (18:00)
[2017-04-10] MEDS ORDERED: BENZONATATE 100 MG (TESSALON) CAPSULE PO NR (18:00)
[2017-04-10] MEDS ORDERED: ONDANSETRON 4 MG/2 ML (SDV) Z0FRAN ONE (18:36)
[2017-04-10] MEDS ORDERED: ONDANSETRON 4 MG/2 ML (SDV) Z0FRAN IVP NR (18:45)
[2017-04-10] MEDS ORDERED: ACETAMINOPHEN 500 MG TAB (TYLENOL) PO PRN (19:45)
[2017-04-10] MEDS ORDERED: ONDANSETRON 4 MG/2 ML (SDV) Z0FRAN IV PRN (19:45)
[2017-04-10] MEDS ORDERED: CATHETER FLUSH 10 ML SYR IV PRN (19:45)
[2017-04-10] MEDS ORDERED: IBUPROFEN 800 MG (MOTRIN) TAB PO PRN (19:45)
[2017-04-10 19:49] VITALS: BP 133/70
[2017-04-10] MEDS ORDERED: RT-ALBUTEROL SULF 2.5 MG/3 ML PRE-MIX VIAL INH PRN (20:15)
[2017-04-10 20:19] VITALS: BP 124/69
[2017-04-10] MEDS: BENZONATATE 100 MG (TESSALON) CAPSULE PO SCH (20:34)
[2017-04-10] MEDS: guaiFENesin (MUCINEX) 600 MG TAB PO SCH (20:34)
[2017-04-10] MEDS: CATHETER FLUSH 10 ML SYR IV SCH (21:09)
[2017-04-10] MEDS: GABAPENTIN 600 MG (NEURONTIN) TAB PO SCH (21:09)
[2017-04-10] MEDS: inSUlin (REGULAR) HUMAN 1 UNIT/0.01 ML (CHARGE PER UNIT) SC SCH (21:09)
[2017-04-10] MEDS: HYDROcodone/APAP 10 MG/325 MG (LORTAB) TAB PO PRN (21:23)
[2017-04-10 21:27] LABS: BILIRUBIN,URINE NEGATIVE (NEGATIVE); CLARITY,URINE CLEAR; COLOR,URINE YELLOW; GLUCOSE, URINE (UA) NEGATIVE (NEGATIVE); KETONES,URINE NEGATIVE (NEGATIVE); LEUKOCYTE ESTERASE ,URINE 2+ (NEGATIVE); NITRITE,URINE NEGATIVE (NEGATIVE); PH,URINE 6 (5-9); PROTEIN,URINE 1+ (NEGATIVE); UROBILINOGEN,URINE NORMAL (NORMAL)
[2017-04-10 21:39] LABS: BACTERIA,URINE NEGATIVE /HPF
[2017-04-10] MEDS: RT-ALBUTEROL/IPRATROPIUM 3 ML (DUONEB) VIAL INH SCH (21:51)
[2017-04-10 22:38] VITALS: BP 128/67
[2017-04-11] VITALS (10 sets, daily range): BP systolic 107–150; BP diastolic 53–84
[2017-04-11] MEDS: methylPREDNISolone 125 MG (Solu-MEDROL) VIAL IV SCH ×3 (00:24→13:27)
[2017-04-11] MEDS: RT-ALBUTEROL/IPRATROPIUM 3 ML (DUONEB) VIAL INH SCH ×6 (02:29→22:46)
[2017-04-11] MEDS: HYDROcodone/APAP 10 MG/325 MG (LORTAB) TAB PO PRN ×2 (05:16→20:03)
[2017-04-11] MEDS ORDERED: inSUlin (REGULAR) HUMAN 1 UNIT/0.01 ML (CHARGE PER UNIT) SC ONE (05:30)
[2017-04-11] MEDS: CATHETER FLUSH 10 ML SYR IV SCH ×3 (05:32→22:02)
[2017-04-11] MEDS: inSUlin (REGULAR) HUMAN 1 UNIT/0.01 ML (CHARGE PER UNIT) SC SCH ×4 (05:32→21:40)
[2017-04-11 06:40] LABS: BASOPHILS % (AUTO) 0 % (0-10); EOSINOPHILS % (AUTO) 0 % (0-10); HEMATOCRIT 30 % (35-52); HEMOGLOBIN 10.4 G/DL (11.5-16.0); LYMPHOCYTES # (AUTO) 1.3 X 10^3 (1.0-4.0); LYMPHOCYTES % (AUTO) 16 % (12-44); MEAN CORPUSCULAR HEMOGLOBIN 30 PG (25-34); MEAN CORPUSCULAR HGB CONC 35 G/DL (32-36); MEAN CORPUSCULAR VOLUME 86 FL (80-99); MEAN PLATELET VOLUME 10.6 FL (7.4-10.4); MONOCYTES # (AUTO) 0.4 X 10^3 (0.0-1.0); MONOCYTES % (AUTO) 5 % (0-12); NEUTROPHILS # (AUTO) 6.6 X 10^3 (1.8-7.8); NEUTROPHILS % (AUTO) 79 % (42-75); PLATELET COUNT 184 10^3/uL (130-400); RED BLOOD COUNT 3.47 10^6/uL (4.35-5.85); WHITE BLOOD COUNT 8.3 10^3/uL (4.3-11.0)
[2017-04-11 07:13] LABS: ALBUMIN 3.8 GM/DL (3.2-4.5); BILIRUBIN,TOTAL 0.6 MG/DL (0.1-1.0); CALCIUM 8.9 MG/DL (8.5-10.1); CREATININE SERUM 1.44 MG/DL (0.60-1.30); POTASSIUM 3.5 MMOL/L (3.6-5.0); TOTAL PROTEIN 6.7 GM/DL (6.4-8.2)
--- NOTE | 2017-04-11 08:53 | History & Physicial (CHS) ---
ANSELMO VASQUEZ [facility] 04/11/17 0853: HPI History of Present Illness: 66yo female with PMH of COPD, HTN, Hyperlipidemia, Sleep Apnea, Diabetes, Neuropathy, and Anxiety/Depression presents with cough, fever and increased SOA. Pt is normally on 2L at home of oxygen. Pt states she had the flu and was hospitalized on 03/23/17. She returned home and improved, but for the last 2 weeks she has started to develop a cough, increased SOA, and increased mucous production. She started to have weakness and fever for the past few days. Pt states she feels a lot better today. She feels like there is a lot of mucous in her lungs that she can't get out. SOA is improving. Pt has increased SOA when she gets up to go to bathroom. Pt states she has some chest pain when she coughs. The cough also hurts her throat. Pt also had palpitations after her breathing treatment this AM. Pt states she has had some nausea and unable to keep much down the past few days. Pt denies N/V currently; medication has helped since hospitalization. Pt states she has had some swelling in her hands the last few days; denies pain or numbness/tingling. Denies fever, chills, abdominal pain, N/V/D/C, skin changes, urinary problems, numbness/tingling. Pt states she has IBS and sometimes has D/C. Pt reports she has had some headaches. Pt quit smoking 15 years ago. Pt uses a CPAP at home for sleep apnea; she will have her bring it today. Pt states she was told she has pre-diabetes. Pt states her sugars have never been as high as they were during this hospitalization. Source: patient Exam Limitations: no limitations Date seen by provider: Apr 11, 2017 Time Seen by Provider: 10:35 Attending Physician Richie Alvarez MD PCP Geetha Patrick DO Consult Date of Admission Apr 10, 2017 at 17:37 Home Medications Home Medications Reviewed patient Home Medication Reconciliation Form Allergies Coded Allergies: dornase lloyd (Verified Allergy, Unknown, RAPID HEART BEAT, 03/23/17) Penicillins (Verified Adverse Reaction, Mild, NAUSEA, 03/23/17) codeine (Verified Adverse Reaction, Mild, NAUSEA, PT TAKES HYDROCODONE AT HOME, 03/23/17) [id number] Hx Patient Social History Alcohol Use: Rarely Uses Recreational Drug Use: No Smoking Status: Former Smoker Former smoker/When Quit: May 22, 2001 Type Used: Cigarettes 2nd Hand Smoke Exposure: Yes Recent Foreign Travel: No Contact w/other who traveled: No Recent Hopitalizations: No Recent Infectious Disease Expo: No Physical Abuse Screen: No Sexual Abuse: No Immunizations Up To Date Tetanus Booster (TDap): Unknown Date of Pneumonia Vaccine: Feb 21, 2017 Date of Influenza Vaccine: Dec 22, 2016 Past Medical History Past Medical History 1. Dysphagia with risk for aspiration per Speech post op cervical fusion.02/03. Resolved per swallow study. 2. DJD 3. COPD- on home O2 4. DM 5. HLP 6. RLE weakness with AFO secondary to "peripheral neuropathy" 7. STACY- recently started on CPAP 8. Morbid Obesity 9. History of LLL pneumonia sp surgery 02/03 with work up by Dr. Reid in the past 10. Fibromyalgia 11. IBS 12. Coronary artery disease with stenting 13. 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 ACDF C5-7 02/03 2. 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 3. Appendectomy 4. Rotator cuff repair 93 5. Tonsillectomy 6. Tracheostomy 05/09 Family Medical History Family History: Cancer 03 MOTHER (lung cancer 1987) Cardiovascular disease G8 BROTHER G8 SISTER Diabetes mellitus G8 SISTER Family history: Asthma 03 MOTHER Family history: Cardiovascular disease 03 FATHER Family history: Hypertension 03 MOTHER Family history: Osteoporosis 03 MOTHER History of - respiratory disease Hypertension G8 BROTHER G8 SISTER Respiratory disorder G8 BROTHER (LUNG CA) Stroke 03 MOTHER (1969, stroke paraylsis lower extremies w/c ) Review of Systems (CHC) Constitutional: no symptoms reported EENTM: throat pain, No blurred vision, No vision loss Respiratory: cough, dyspnea on exertion, phlegm, short of breath, wheezing Cardiovascular: chest pain (with coughing), No edema, palpitations (after breathing treatment) Gastrointestinal: no symptoms reported, No abdominal pain, No constipation, No diarrhea, No nausea, No vomiting Genitourinary: no symptoms reported, No dysuria, No frequency, No hematuria Musculoskeletal: No back pain, No joint pain, No muscle pain, muscle weakness, No neck pain Skin: No change in color, dryness, No rash, other (Pt states she feels like her hands are swollen and red) Psychiatric/Neurological: Denies Anxiety, Denies Depressed, Headache, Denies Numbness, Denies Paresthesia, Denies Tingling, Denies Tremors, Weakness Reviewed Test Results Reviewed Test Results Lab Laboratory Tests Test 04/10/17 15:21 04/10/17 20:55 04/10/17 21:20 04/11/17 05:08 Range/Units White Blood Count 8.7 4.3-11.0 10^3/uL Red Blood Count 4.19 L 4.35-5.85 10^6/uL Hemoglobin 12.5 11.5-16.0 G/DL Hematocrit 36 35-52 % Mean Corpuscular Volume 86 80-99 FL Mean Corpuscular Hemoglobin 30 25-34 PG Mean Corpuscular Hemoglobin Concent 35 32-36 G/DL Red Cell Distribution Width 14.2 10.0-14.5 % Platelet Count 199 130-400 10^3/uL Mean Platelet Volume 10.1 7.4-10.4 FL Neutrophils (%) (Auto) 62 42-75 % Lymphocytes (%) (Auto) 25 12-44 % Monocytes (%) (Auto) 12 0-12 % Eosinophils (%) (Auto) 1 0-10 % Basophils (%) (Auto) 0 0-10 % Neutrophils # (Auto) 5.4 1.8-7.8 X 10^3 Lymphocytes # (Auto) 2.2 1.0-4.0 X 10^3 Monocytes # (Auto) 1.0 0.0-1.0 X 10^3 Eosinophils # (Auto) 0.1 0.0-0.3 10^3/uL Basophils # (Auto) 0.0 0.0-0.1 10^3/uL Sodium Level 138 135-145 MMOL/L Potassium Level 4.1 3.6-5.0 MMOL/L Chloride Level 103 98-107 MMOL/L Carbon Dioxide Level 21 21-32 MMOL/L Anion Gap 14 5-14 MMOL/L Blood Urea Nitrogen 17 7-18 MG/DL Creatinine 0.98 0.60-1.30 MG/DL Estimat Glomerular Filtration Rate 57 BUN/Creatinine Ratio 17 Glucose Level 126 H 70-105 MG/DL Lactic Acid Level 1.37 0.50-2.00 MMOL/L Calcium Level 9.6 8.5-10.1 MG/DL Magnesium Level 2.0 1.8-2.4 MG/DL Total Bilirubin 1.0 0.1-1.0 MG/DL Aspartate Amino Transf (AST/SGOT) 25 5-34 U/L Alanine Aminotransferase (ALT/SGPT) 32 0-55 U/L Alkaline Phosphatase 56 40-136 U/L B-Type Natriuretic Peptide 19.5 <100.0 PG/ML Total Protein 7.6 6.4-8.2 GM/DL Albumin 4.4 3.2-4.5 GM/DL Glucometer 364 H 510 *H 70-110 MG/DL Urine Color YELLOW Urine Clarity CLEAR Urine pH 6 5-9 Urine Specific [place] 1.020 1.016-1.022 Urine Protein 1+ H NEGATIVE Urine Glucose (UA) NEGATIVE NEGATIVE Urine Ketones NEGATIVE NEGATIVE Urine Nitrite NEGATIVE NEGATIVE Urine Bilirubin NEGATIVE NEGATIVE Urine Urobilinogen NORMAL NORMAL MG/DL Urine Leukocyte Esterase 2+ H NEGATIVE Urine RBC (Auto) NEGATIVE NEGATIVE Urine RBC NONE /HPF Urine WBC 5-10 H /HPF Urine Squamous Epithelial Cells 5-10 /HPF Urine Crystals NONE /LPF Urine Bacteria NEGATIVE /HPF Urine Casts NONE /LPF Urine Mucus NEGATIVE /LPF Urine Culture Indicated YES Test 04/11/17 05:50 Range/Units White Blood Count 8.3 4.3-11.0 10^3/uL Red Blood Count 3.47 L 4.35-5.85 10^6/uL Hemoglobin 10.4 L 11.5-16.0 G/DL Hematocrit 30 L 35-52 % Mean Corpuscular Volume 86 80-99 FL Mean Corpuscular Hemoglobin 30 25-34 PG Mean Corpuscular Hemoglobin Concent 35 32-36 G/DL Red Cell Distribution Width 14.0 10.0-14.5 % Platelet Count 184 130-400 10^3/uL Mean Platelet Volume 10.6 H 7.4-10.4 FL Neutrophils (%) (Auto) 79 H 42-75 % Lymphocytes (%) (Auto) 16 12-44 % Monocytes (%) (Auto) 5 0-12 % Eosinophils (%) (Auto) 0 0-10 % Basophils (%) (Auto) 0 0-10 % Neutrophils # (Auto) 6.6 1.8-7.8 X 10^3 Lymphocytes # (Auto) 1.3 1.0-4.0 X 10^3 Monocytes # (Auto) 0.4 0.0-1.0 X 10^3 Eosinophils # (Auto) 0.0 0.0-0.3 10^3/uL Basophils # (Auto) 0.0 0.0-0.1 10^3/uL Sodium Level 132 L 135-145 MMOL/L Potassium Level 3.5 L 3.6-5.0 MMOL/L Chloride Level 99 98-107 MMOL/L Carbon Dioxide Level 16 L 21-32 MMOL/L Anion Gap 17 H 5-14 MMOL/L Blood Urea Nitrogen 28 H 7-18 MG/DL Creatinine 1.44 H 0.60-1.30 MG/DL Estimat Glomerular Filtration Rate 37 BUN/Creatinine Ratio 19 Glucose Level 506 *H 70-105 MG/DL Calcium Level 8.9 8.5-10.1 MG/DL Total Bilirubin 0.6 0.1-1.0 MG/DL Aspartate Amino Transf (AST/SGOT) 19 5-34 U/L Alanine Aminotransferase (ALT/SGPT) 27 0-55 U/L Alkaline Phosphatase 52 40-136 U/L Total Protein 6.7 6.4-8.2 GM/DL Albumin 3.8 3.2-4.5 GM/DL Radiology Date of Exam: 04/10/17 CHEST 1 VIEW, AP/PA ONLY INDICATION: Cough. EXAMINATION: Erect AP chest at 3:44. FINDINGS: The heart size is within normal limits and stable when compared to 03/23/2017. The prior study did note right infrahilar atelectasis/infiltrate. On this exam there are a few crowded bronchovascular markings in the right infrahilar region but I am not certain that there is any pneumonia or atelectasis present in this area. The right upper lung and left lung are clear. The mediastinum is not widened. The osseous structures are intact. The orthopedic hardware overlying the cervicothoracic junction, seen previously, is again evident. IMPRESSION: 1. There are a few crowded bronchovascular markings in the right infrahilar region but there is no clear evidence for pneumonia or atelectasis in this area. 2. There is no acute cardiopulmonary abnormality noted otherwise. Date of Exam:04/11/17 CHEST PA/LAT (2 VIEW) INDICATION: Pneumonia. COMPARISON: 04/10/2017. FINDINGS: The right greater than left perihilar and infrahilar infiltrates have increased. No effusion or pneumothorax. IMPRESSION: The bilateral infiltrates in the mid to lower lungs, greater right, have progressed from the prior exam. Physical Exam-([facility]C) Physical Exam Vital Signs VS - Last 72 Hours, by Label 04/10/17 04/10/17 04/10/17 04/10/17 15:10 16:49 17:32 17:33 Temp 103.5 103.5 103.5 Pulse 95 Resp 22 B/P (MAP) 133/70 (91) Pulse Ox 95 93 O2 Flow Rate 2.00 04/10/17 04/10/17 04/10/17 04/10/17 18:50 19:15 19:49 19:58 Temp 103.5 Pulse 95 95 90 Resp 22 Pulse Ox 93 93 O2 Delivery Nasal Cannula Room Air O2 Flow Rate 2.00 3.00 FiO2 28 04/10/17 04/10/17 04/10/17 04/11/17 20:19 21:51 22:38 00:00 Temp 99.5 97.8 96.8 Pulse 87 88 87 Resp 22 B/P (MAP) 124/69 (87) 128/67 (87) 133/61 (85) Pulse Ox 96 92 96 93 O2 Delivery Room Air Nasal Cannula Room Air Nasal Cannula O2 Flow Rate 3.00 3.00 04/11/17 04/11/17 04/11/17 04/11/17 00:00 01:00 02:29 02:56 Temp 96.8 96.8 Pulse 87 74 73 Resp 18 B/P (MAP) 133/61 (85) 107/53 (71) Pulse Ox 93 92 95 O2 Delivery Nasal Cannula Nasal Cannula Nasal Cannula O2 Flow Rate 3.00 3.00 4.00 3.00 04/11/17 04/11/17 04/11/17 04/11/17 04:00 04:00 06:00 06:43 Temp 97.1 97.1 97.5 Pulse 76 76 84 Resp 18 18 24 B/P (MAP) 120/58 (78) 120/58 (78) 118/57 (77) Pulse Ox 94 94 98 95 O2 Delivery Nasal Cannula Nasal Cannula Nasal Cannula Nasal Cannula O2 Flow Rate 4.00 4.00 4.00 4.00 04/11/17 04/11/17 08:00 10:10 Pulse Ox 97 97 O2 Delivery Nasal Cannula Nasal Cannula O2 Flow Rate 4.00 4.00 Capillary Refill : Less Than 3 Seconds General Appearance: WD/WN, mild distress HEENT: PERRL/EOMI, normal ENT inspection, pharynx normal Neck: non-tender, full range of motion, supple, normal inspection Respiratory: chest non-tender, respiratory distress, rhonchi, wheezing Cardiovascular: normal peripheral pulses, regular rate, rhythm, no murmur Gastrointestinal: normal bowel sounds, non tender, soft, no organomegaly, no pulsatile mass Back: normal inspection Extremities: normal range of motion, non-tender, normal inspection, no pedal edema, no calf tenderness, normal capillary refill 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, no motor/sensory deficits, alert, normal mood/affect, oriented x 3 Skin: normal color, warm/dry, other (mild redness/ mild swelling in bilateral hands/lower UE) Lymphatic: no adenopathy Clinical Quality Measures DVT/VTE Risk/Contraindication: Risk Factor Score Per Nursin RFS Level Per Nursing on Admit: 2=Moderate Copy Copies To 1: [facility] Assessment/Plan Assessment/Plan Plan 66yo female with PMH of COPD, HTN, Hyperlipidemia, Sleep Apnea, Diabetes, Neuropathy, and Anxiety/Depression presents with cough, fever and increased SOA Hypoxia 2/2 COPD exacerbation vs Pneumonia - pt currently on 4L of O2; baseline is 2L; wean O2 if possible - continue Cefepime - continue to encourage Aerobika and deep breathing - Pulm/Dr. Reid consulted - continue breathing treatments and steroids; RT following Pneumonia - CXR: bilateral infiltrates in lower lungs - continue Cefepime COPD with O2 dependence - pt currently on 4L of O2; baseline is 2L - continue to wean O2 as tolerated; RT following - continue breathing treatments Acute kidney failure - Creatinine elevated since admission labs - continue IVF - recheck with AM labs Non-insulin dependent diabetes - chronic - holding pt home medications - blood sugars elevated; pt is on steroids currently - Add Levemir 10U and continue SSI Hypokalemia - replace potassium - recheck with AM labs Hyponatremia - monitor for symptoms - recheck with AM labs Sleep Apnea - chronic - pt having family bring CPAP; use CPAP while pt is sleeping HTN - normotensive currently - chronic - holding home medications Hyperlipidemia - chronic - consider restarting home statin Anxiety/Depression - chronic - consider restarting home SSRI FEN: diabetic diet DVT PPX: lovenox Dispo: Pt requiring increased O2 and IV antibiotics. Pt will likely be hospitalized for a few days. RICHIE ALVAREZ MD 04/11/17 1511: Home Medications Allergies Coded Allergies: dornase lloyd (Verified Allergy, Unknown, RAPID HEART BEAT, 03/23/17) Penicillins (Verified Adverse Reaction, Mild, NAUSEA, 03/23/17) codeine (Verified Adverse Reaction, Mild, NAUSEA, PT TAKES HYDROCODONE AT HOME, 03/23/17) JSI-[id number]-Ijdlnr Hx Family Medical History Family History: Cancer 03 MOTHER (lung cancer 1987) Cardiovascular disease G8 BROTHER G8 SISTER Diabetes mellitus G8 SISTER Family history: Asthma 03 MOTHER Family history: Cardiovascular disease 03 FATHER Family history: Hypertension 03 MOTHER Family history: Osteoporosis 03 MOTHER History of - respiratory disease Hypertension G8 BROTHER G8 SISTER Respiratory disorder G8 BROTHER (LUNG CA) Stroke 03 MOTHER (1969,s stroke paraylsis lower extremies w/c ) Physical Exam-([facility]) Physical Exam Vital Signs VS - Last 72 Hours, by Label 04/10/17 04/10/17 04/10/17 04/10/17 15:10 16:49 17:32 17:33 Temp 103.5 103.5 103.5 Pulse 95 Resp 22 B/P (MAP) 133/70 (91) Pulse Ox 95 93 O2 Flow Rate 2.00 04/10/17 04/10/17 04/10/17 04/10/17 18:50 19:15 19:49 19:58 Temp 103.5 Pulse 95 95 90 Resp 22 Pulse Ox 93 93 O2 Delivery Nasal Cannula Room Air O2 Flow Rate 2.00 3.00 FiO2 28 04/10/17 04/10/17 04/10/17 04/11/17 20:19 21:51 22:38 00:00 Temp 99.5 97.8 96.8 Pulse 87 88 87 Resp 21 20 22 B/P (MAP) 124/69 (87) 128/67 (87) 133/61 (85) Pulse Ox 96 92 96 93 O2 Delivery Room Air Nasal Cannula Room Air Nasal Cannula O2 Flow Rate 3.00 3.00 04/11/17 04/11/17 04/11/17 04/11/17 00:00 01:00 02:29 02:56 Temp 96.8 96.8 Pulse 87 74 73 Resp 22 18 B/P (MAP) 133/61 (85) 107/53 (71) Pulse Ox 93 92 95 O2 Delivery Nasal Cannula Nasal Cannula Nasal Cannula O2 Flow Rate 3.00 3.00 4.00 3.00 04/11/17 04/11/17 04/11/17 04/11/17 04:00 04:00 06:00 06:43 Temp 97.1 97.1 97.5 Pulse 76 76 84 Resp 18 18 24 B/P (MAP) 120/58 (78) 120/58 (78) 118/57 (77) Pulse Ox 94 94 98 95 O2 Delivery Nasal Cannula Nasal Cannula Nasal Cannula Nasal Cannula O2 Flow Rate 4.00 4.00 4.00 4.00 04/11/17 04/11/17 04/11/17 04/11/17 08:00 08:00 09:00 10:10 Temp 97.5 Pulse 89 Resp 24 B/P (MAP) 129/60 (83) Pulse Ox 92 97 97 O2 Delivery Nasal Cannula Nasal Cannula Nasal Cannula Nasal Cannula O2 Flow Rate 4.00 4.00 4.00 4.00 04/11/17 04/11/17 12:30 14:00 Temp 96.0 Pulse 88 Resp 28 B/P (MAP) 146/84 (104) Pulse Ox 97 96 O2 Delivery Nasal Cannula Nasal Cannula O2 Flow Rate 4.00 4.00 Copy Copies To 1: Sonja GOLDMAN Assessment/Plan Assessment/Plan Plan 66 yo F with long standing COPD that was admitted with increase oxygen requirement with concerns for PNA Acute on Chronic Respiratory Failure with Hypoxia - Dr Reid Consulted as this is a mutual patient with long standing COPD - RT with MAT protocol Community Acquire PNA - Broad spectrum antiboitics - See Above COPD Exacerbation - Continue IV steroids, start to titrate tomorrow Acute Renal Failure - Gentle hydration, repeat CMP in AM Non Insulin Dependent DM - Started on Levemir qhs while on steroids, SSI STACY on Bipap HTN: Normotensive - Hold home blood pressure meds HLD Hypokalemia: replaced and repeat BMP in AM FEN: ADA diet DVT PPX: Lovenox Dispo: Admit to Med/Surg for Sepsis with PNA ANSELMO VASQUEZ [facility] Apr 11, 2017 08:53 RICHIE ALVAREZ MD Apr 11, 2017 15:11
[2017-04-11] MEDS ORDERED: CEFEPIME 2 GM/NS 50 ML IVPB IV SCH ×2 (09:00)
[2017-04-11] MEDS: guaiFENesin (MUCINEX) 600 MG TAB PO SCH ×2 (09:03→20:03)
[2017-04-11] MEDS: BENZONATATE 100 MG (TESSALON) CAPSULE PO SCH ×3 (09:03→20:03)
--- NOTE | 2017-04-11 09:21 | Diagnostic Imaging Report ---
INDICATION: Pneumonia. COMPARISON: 04/10/2017. FINDINGS: The right greater than left perihilar and infrahilar infiltrates have increased. No effusion or pneumothorax. IMPRESSION: The bilateral infiltrates in the mid to lower lungs, greater right, have progressed from the prior exam. Dictated by: Dictated on workstation # [id number]
[2017-04-11] MEDS ORDERED: LIDO700A45 TD (09:52)
[2017-04-11] MEDS ORDERED: inSUlin DETERMIR 1 UNIT/0.01 ML (LEVEMIR) CHARGE PER UNIT SQ NR (11:00)
[2017-04-11] MEDS ORDERED: inSUlin (REGULAR) HUMAN 1 UNIT/0.01 ML (CHARGE PER UNIT) SC NR ×2 (11:00→16:15)
[2017-04-11] MEDS ORDERED: ARTIFICAL TEARS 0.4 ML UNIT DOSE (REFRESH PLUS) OU PRN (15:00)
[2017-04-11] MEDS: AMITRIPTYLINE 25 MG (ELAVIL) TAB PO SCH (20:02)
[2017-04-11] MEDS: ARIPIPRAZOLE 10 MG (ABILIFY) TAB PO SCH (20:03)
[2017-04-11] MEDS: GABAPENTIN 600 MG (NEURONTIN) TAB PO SCH (20:03)
[2017-04-11] MEDS: CEFEPIME 2 GM/D5W 50 ML IVPB IV SCH ×2 (20:04)
[2017-04-11] MEDS ORDERED: NON-FORMULARY MEDICATION 1 EA EA (Cyclosporine (Restasis) 1 DROP) OU SCH (21:00)
[2017-04-11] MEDS: inSUlin DETERMIR 1 UNIT/0.01 ML (LEVEMIR) CHARGE PER UNIT SQ SCH (21:40)
[2017-04-12] VITALS (12 sets, daily range): BP systolic 110–165; BP diastolic 55–83
[2017-04-12] MEDS: RT-ALBUTEROL/IPRATROPIUM 3 ML (DUONEB) VIAL INH SCH ×6 (02:01→22:09)
[2017-04-12] MEDS: HYDROcodone/APAP 10 MG/325 MG (LORTAB) TAB PO PRN ×3 (02:38→20:23)
[2017-04-12 05:12] LABS: BASOPHILS % (AUTO) 0 % (0-10); EOSINOPHILS % (AUTO) 0 % (0-10); HEMATOCRIT 29 % (35-52); HEMOGLOBIN 10.1 G/DL (11.5-16.0); LYMPHOCYTES # (AUTO) 1.7 X 10^3 (1.0-4.0); LYMPHOCYTES % (AUTO) 12 % (12-44); MEAN CORPUSCULAR HEMOGLOBIN 30 PG (25-34); MEAN CORPUSCULAR HGB CONC 35 G/DL (32-36); MEAN CORPUSCULAR VOLUME 86 FL (80-99); MEAN PLATELET VOLUME 10.5 FL (7.4-10.4); MONOCYTES # (AUTO) 1.2 X 10^3 (0.0-1.0); MONOCYTES % (AUTO) 9 % (0-12); NEUTROPHILS # (AUTO) 10.8 X 10^3 (1.8-7.8); NEUTROPHILS % (AUTO) 79 % (42-75); PLATELET COUNT 206 10^3/uL (130-400); RED BLOOD COUNT 3.37 10^6/uL (4.35-5.85); WHITE BLOOD COUNT 13.7 10^3/uL (4.3-11.0)
[2017-04-12] MEDS: inSUlin (REGULAR) HUMAN 1 UNIT/0.01 ML (CHARGE PER UNIT) SC SCH ×4 (05:22→20:33)
[2017-04-12] MEDS: CATHETER FLUSH 10 ML SYR IV SCH ×3 (05:23→20:36)
[2017-04-12 05:53] LABS: ALBUMIN 3.8 GM/DL (3.2-4.5); BILIRUBIN,TOTAL 0.4 MG/DL (0.1-1.0); CALCIUM 9.3 MG/DL (8.5-10.1); CREATININE SERUM 1.09 MG/DL (0.60-1.30); POTASSIUM 3.6 MMOL/L (3.6-5.0); TOTAL PROTEIN 6.6 GM/DL (6.4-8.2)
--- NOTE | 2017-04-12 09:15 | Progress Note (SOAP) ---
Subjective Subjective/Events-last exam Patient reports overall she feels much better. She is very aware of her clinical condition. She has been on ventilator in the past as well as trached in the past. She reports she has a cough that is somewhat productive but she cannot get it out. RT is involved. Review of Systems Date Seen by Provider: Apr 12, 2017 Time Seen by Provider: 07:45 Objective Exam Last Set of Vital Signs Vital Signs Date Time Temp Pulse Resp B/P (MAP) Pulse Ox O2 Delivery O2 Flow Rate FiO2 04/12/17 07:00 81 04/12/17 07:00 95 Nasal Cannula 4.00 04/12/17 06:00 97.0 20 120/56 (77) 04/10/17 19:49 28 Capillary Refill : Less Than 3 SecondsLess Than 3 Seconds I&O Intake and Output 04/12/17 00:00 Intake Total 3540 ml Output Total 4800 ml Balance -1260 ml Intake Oral 3440 ml IV Total 100 ml Output Urine Total 4800 ml # Voids 2 General: No Acute Distress (And is very pleasant) Neck: Supple Lungs: Other (Air movement distant) Heart: Regular Rate Abdomen: Soft Skin: No Rashes Results/Procedures Lab Laboratory Tests 04/11/17 10:45: Glucometer 537*H 04/11/17 15:59: Glucometer 502*H 04/11/17 21:00: Glucometer 392H 04/12/17 03:59: White Blood Count 13.7H, Red Blood Count 3.37L, Hemoglobin 10.1L, Hematocrit 29L , Mean Corpuscular Volume 86, Mean Corpuscular Hemoglobin 30, Mean Corpuscular Hemoglobin Concent 35, Red Cell Distribution Width 14.0, Platelet Count 206, Mean Platelet Volume 10.5H, Neutrophils (%) (Auto) 79H, Lymphocytes (%) (Auto) 12, Monocytes (%) (Auto) 9, Eosinophils (%) (Auto) 0, Basophils (%) (Auto) 0, Neutrophils # (Auto) 10.8H, Lymphocytes # (Auto) 1.7, Monocytes # (Auto) 1.2H, Eosinophils # (Auto) 0.0, Basophils # (Auto) 0.0, Sodium Level 137, Potassium Level 3.6, Chloride Level 104, Carbon Dioxide Level 20L, Anion Gap 13, Blood Urea Nitrogen 29H, Creatinine 1.09, Estimat Glomerular Filtration Rate 51, BUN/ Creatinine Ratio 27, Glucose Level 303H, Calcium Level 9.3, Total Bilirubin 0.4 , Aspartate Amino Transf (AST/SGOT) 16, Alanine Aminotransferase (ALT/SGPT) 21, Alkaline Phosphatase 47, Total Protein 6.6, Albumin 3.8 04/12/17 05:11: Glucometer 280H Microbiology 04/10/17 Blood Culture - Preliminary, Resulted No growth 04/10/17 Influenza Types A,B Antigen (CASSIE) - Final, Complete 04/10/17 Urine Culture - Preliminary, Resulted Radiology Date of Exam: 04/10/17 CHEST 1 VIEW, AP/PA ONLY INDICATION: Cough. EXAMINATION: Erect AP chest at 3:44. FINDINGS: The heart size is within normal limits and stable when compared to 03/23/2017. The prior study did note right infrahilar atelectasis/infiltrate. On this exam there are a few crowded bronchovascular markings in the right infrahilar region but I am not certain that there is any pneumonia or atelectasis present in this area. The right upper lung and left lung are clear. The mediastinum is not widened. The osseous structures are intact. The orthopedic hardware overlying the cervicothoracic junction, seen previously, is again evident. IMPRESSION: 1. There are a few crowded bronchovascular markings in the right infrahilar region but there is no clear evidence for pneumonia or atelectasis in this area. 2. There is no acute cardiopulmonary abnormality noted otherwise. Date of Exam:04/11/17 CHEST PA/LAT (2 VIEW) INDICATION: Pneumonia. COMPARISON: 04/10/2017. FINDINGS: The right greater than left perihilar and infrahilar infiltrates have increased. No effusion or pneumothorax. IMPRESSION: The bilateral infiltrates in the mid to lower lungs, greater right, have progressed from the prior exam. Assessment/Plan Assessment/Plan Plan 66 yo F with long standing COPD that was admitted with increase oxygen requirement with concerns for PNA Acute on Chronic Respiratory Failure with Hypoxia - Dr Reid Consulted as this is a mutual patient with long standing COPD - RT with MAT protocol 04/12 -Patient is overall improved with her respiratory failure and hypoxemia after starting Solu-Medrol. She is currently at 125 mg every 6 hours. Community Acquire PNA - Broad spectrum antiboitics - See Above 04/12 Today is day number 3 of cefepime COPD Exacerbation - Continue IV steroids Acute Renal Failure - Gentle hydration, repeat CMP in AM 04/12 -Her creatinine is 1.09 today. We will continue to monitor. She is taking oral fluids okay. Non Insulin Dependent DM - Started on Levemir qhs while on steroids, SSI 04/12 -Levemir 15 units was started last night. Patient is aware of this. She thinks most likely she will not need this at home but this is to be determined. STACY on Bipap HTN: Normotensive - Hold home blood pressure meds HLD Hypokalemia: replaced and repeat BMP in AM 04/12 -Improved. This will be rechecked in the morning of April 13 Clinical Quality Measures DVT/VTE Risk/Contraindication: Risk Factor Score Per Nursin RFS Level Per Nursing on Admit: 2=Moderate CRISTIANA MCKINNEY MD Apr 12, 2017 09:15
[2017-04-12] MEDS: ASPIRIN E.C. 81 MG (ECOTRIN) TAB PO SCH (09:32)
[2017-04-12] MEDS: guaiFENesin (MUCINEX) 600 MG TAB PO SCH ×2 (09:33→20:22)
[2017-04-12] MEDS: ARIPIPRAZOLE 10 MG (ABILIFY) TAB PO SCH ×2 (09:33→20:22)
[2017-04-12] MEDS: BENZONATATE 100 MG (TESSALON) CAPSULE PO SCH ×3 (09:33→20:22)
[2017-04-12] MEDS: CEFEPIME 2 GM/D5W 50 ML IVPB IV SCH ×4 (09:36→20:22)
[2017-04-12] MEDS ORDERED: PATIENT MAY USE OWN MED,SINGLE MED PO SCH (09:45)
[2017-04-12] MEDS ORDERED: BUPRENORPHINE 5 MCG/HR TD SCH (11:19)
[2017-04-12] MEDS: GABAPENTIN 600 MG (NEURONTIN) TAB PO SCH (20:22)
[2017-04-12] MEDS: inSUlin DETERMIR 1 UNIT/0.01 ML (LEVEMIR) CHARGE PER UNIT SQ SCH (20:32)
[2017-04-12] MEDS: AMITRIPTYLINE 25 MG (ELAVIL) TAB PO SCH (20:33)
[2017-04-13] VITALS (10 sets, daily range): BP systolic 120–159; BP diastolic 56–73
[2017-04-13] MEDS: RT-ALBUTEROL/IPRATROPIUM 3 ML (DUONEB) VIAL INH SCH ×6 (02:23→22:51)
[2017-04-13] MEDS: inSUlin (REGULAR) HUMAN 1 UNIT/0.01 ML (CHARGE PER UNIT) SC SCH ×4 (05:58→21:40)
[2017-04-13] MEDS: CATHETER FLUSH 10 ML SYR IV SCH ×3 (06:09→21:41)
[2017-04-13] MEDS: HYDROcodone/APAP 10 MG/325 MG (LORTAB) TAB PO PRN ×2 (06:52→23:50)
[2017-04-13 07:05] LABS: BASOPHILS % (AUTO) 0 % (0-10); EOSINOPHILS % (AUTO) 0 % (0-10); HEMATOCRIT 29 % (35-52); HEMOGLOBIN 9.7 G/DL (11.5-16.0); LYMPHOCYTES % (AUTO) 33 % (12-44); MEAN CORPUSCULAR HEMOGLOBIN 30 PG (25-34); MEAN CORPUSCULAR HGB CONC 34 G/DL (32-36); MEAN CORPUSCULAR VOLUME 88 FL (80-99); MEAN PLATELET VOLUME 10.5 FL (7.4-10.4); MONOCYTES # (AUTO) 1.1 X 10^3 (0.0-1.0); MONOCYTES % (AUTO) 9 % (0-12); NEUTROPHILS % (AUTO) 58 % (42-75); PLATELET COUNT 192 10^3/uL (130-400); RED BLOOD COUNT 3.28 10^6/uL (4.35-5.85); RED CELL DISTRIBUTION WIDTH 14.5 % (10.0-14.5); WHITE BLOOD COUNT 12.1 10^3/uL (4.3-11.0)
[2017-04-13 07:22] LABS: BUN/CREATININE RATIO 26; CALCIUM 8.7 MG/DL (8.5-10.1); CARBON DIOXIDE 25 MMOL/L (21-32); CHLORIDE 106 MMOL/L (98-107); CREATININE SERUM 0.84 MG/DL (0.60-1.30); GFR ESTIMATED > 60; GLUCOSE 114 MG/DL (70-105); POTASSIUM 4.1 MMOL/L (3.6-5.0); SODIUM 143 MMOL/L (135-145)
--- NOTE | 2017-04-13 08:45 | Progress Note (SOAP) ---
Subjective Subjective/Events-last exam Patient reports that her throat is a little bit sore. She has had this happen before and it was thrush. She still has cough and has mucus in the bronchial airways. Review of Systems Date Seen by Provider: Apr 13, 2017 Time Seen by Provider: 07:50 Objective Exam Last Set of Vital Signs Vital Signs Date Time Temp Pulse Resp B/P (MAP) Pulse Ox O2 Delivery O2 Flow Rate FiO2 04/13/17 07:16 98 Nasal Cannula 3.00 04/13/17 07:16 71 32 04/13/17 06:00 96.2 18 129/60 (83) Capillary Refill : Less Than 3 SecondsLess Than 3 Seconds I&O Intake and Output 04/13/17 00:00 Intake Total 2710 ml Output Total 3800 ml Balance -1090 ml Intake Oral 2710 ml Output Urine Total 3800 ml General: No Acute Distress HEENT: Other (She is noted to have splotchy erythema on the posterior pharynx) Lungs: Other (Rhonchi) Heart: Regular Rate Abdomen: Soft Results/Procedures Lab Laboratory Tests 04/12/17 10:57: Glucometer 181H 04/12/17 15:53: Glucometer 238H 04/12/17 20:28: Glucometer 301H 04/13/17 05:49: Glucometer 120H 04/13/17 06:19: White Blood Count 12.1H, Red Blood Count 3.28L, Hemoglobin 9.7L, Hematocrit 29L , Mean Corpuscular Volume 88, Mean Corpuscular Hemoglobin 30, Mean Corpuscular Hemoglobin Concent 34, Red Cell Distribution Width 14.5, Platelet Count 192, Mean Platelet Volume 10.5H, Neutrophils (%) (Auto) 58, Lymphocytes (%) (Auto) 33 , Monocytes (%) (Auto) 9, Eosinophils (%) (Auto) 0, Basophils (%) (Auto) 0, Neutrophils # (Auto) 7.0, Lymphocytes # (Auto) 4.0, Monocytes # (Auto) 1.1H, Eosinophils # (Auto) 0.0, Basophils # (Auto) 0.0, Sodium Level 143, Potassium Level 4.1, Chloride Level 106, Carbon Dioxide Level 25, Anion Gap 12, Blood Urea Nitrogen 22H, Creatinine 0.84, Estimat Glomerular Filtration Rate > 60, BUN /Creatinine Ratio 26, Glucose Level 114H, Calcium Level 8.7 Microbiology 04/10/17 Blood Culture - Preliminary, Resulted No growth 04/10/17 Influenza Types A,B Antigen (CASSIE) - Final, Complete 04/10/17 Urine Culture - Final, Complete Radiology Date of Exam: 04/10/17 CHEST 1 VIEW, AP/PA ONLY INDICATION: Cough. EXAMINATION: Erect AP chest at 3:44. FINDINGS: The heart size is within normal limits and stable when compared to 03/23/2017. The prior study did note right infrahilar atelectasis/infiltrate. On this exam there are a few crowded bronchovascular markings in the right infrahilar region but I am not certain that there is any pneumonia or atelectasis present in this area. The right upper lung and left lung are clear. The mediastinum is not widened. The osseous structures are intact. The orthopedic hardware overlying the cervicothoracic junction, seen previously, is again evident. IMPRESSION: 1. There are a few crowded bronchovascular markings in the right infrahilar region but there is no clear evidence for pneumonia or atelectasis in this area. 2. There is no acute cardiopulmonary abnormality noted otherwise. Date of Exam:04/11/17 CHEST PA/LAT (2 VIEW) INDICATION: Pneumonia. COMPARISON: 04/10/2017. FINDINGS: The right greater than left perihilar and infrahilar infiltrates have increased. No effusion or pneumothorax. IMPRESSION: The bilateral infiltrates in the mid to lower lungs, greater right, have progressed from the prior exam. Assessment/Plan Assessment/Plan Plan 66 yo F with long standing COPD that was admitted with increase oxygen requirement with concerns for PNA 1. Acute on Chronic Respiratory Failure with Hypoxia - Dr Reid Consulted as this is a mutual patient with long standing COPD - RT with MAT protocol 04/12 -Patient is overall improved with her respiratory failure and hypoxemia after starting Solu-Medrol. She is currently at 125 mg every 6 hours. 2. Community Acquire PNA - Broad spectrum antiboitics - See Above 04/12 Today is day number 3 of cefepime 04/13 -Day number 4 cefepime 3. COPD Exacerbation - Continue IV steroids 04/13 -Begin to taper Solu-Medrol 125 mg IV every 8 hours 4. Acute Renal Failure - Gentle hydration, repeat CMP in AM 04/12 -Her creatinine is 1.09 today. We will continue to monitor. She is taking oral fluids okay. 04/13 -Creatinine this morning is 0.84, reassuring 5. Non Insulin Dependent DM - Started on Levemir qhs while on steroids, SSI 04/12 -Levemir 15 units was started last night. Patient is aware of this. She thinks most likely she will not need this at home but this is to be determined. 04/13 -Glucose 114 this a.m. with Levemir continuing during the evening 6. STACY on Bipap 7. HTN: Normotensive - Hold home blood pressure meds 8. HLD 9. Hypokalemia: replaced and repeat BMP in AM 04/12 -Improved. This will be rechecked in the morning of April 13 Clinical Quality Measures DVT/VTE Risk/Contraindication: Risk Factor Score Per Nursin RFS Level Per Nursing on Admit: 2=Moderate CRISTIANA MCKINNEY MD Apr 13, 2017 08:45
[2017-04-13] MEDS: ASPIRIN E.C. 81 MG (ECOTRIN) TAB PO SCH (09:21)
[2017-04-13] MEDS: ARIPIPRAZOLE 10 MG (ABILIFY) TAB PO SCH ×2 (09:21→20:17)
[2017-04-13] MEDS: guaiFENesin (MUCINEX) 600 MG TAB PO SCH ×2 (09:22→21:40)
[2017-04-13] MEDS: CEFEPIME 2 GM/D5W 50 ML IVPB IV SCH ×4 (09:22→20:18)
[2017-04-13] MEDS: BENZONATATE 100 MG (TESSALON) CAPSULE PO SCH ×3 (09:22→20:18)
[2017-04-13] MEDS: NYSTATIN ORAL SUSP 5 ML UDC PO SCH ×3 (11:02→23:23)
[2017-04-13] MEDS ORDERED: methylPREDNISolone 125 MG (Solu-MEDROL) VIAL IVP ONE (11:15)
[2017-04-13] MEDS ORDERED: LORazepam 0.5 MG (ATIVAN) TABLET PO NR (11:15)
[2017-04-13] MEDS ORDERED: methylPREDNISolone 125 MG (Solu-MEDROL) VIAL ONE (11:17)
[2017-04-13] MEDS ORDERED: methylPREDNISolone 125 MG (Solu-MEDROL) VIAL IVP NR (11:22)
[2017-04-13] MEDS ORDERED: RT-epiNEPHrine (RACEMIC) 2.25% 0.5 ML VIAL INH NR (11:45)
[2017-04-13] MEDS ORDERED: CHLORASEPTIC SPRAY 177 ML LIQUID MC PRN (11:45)
--- NOTE | 2017-04-13 11:52 | Diagnostic Imaging Report ---
INDICATION: Shortness of breath. Comparison made with prior examination from 04/11/2017. FINDINGS: There is some left basilar atelectasis and/or pneumonitis. Heart size is normal. The mediastinum is unremarkable. There is no pneumothorax. IMPRESSION: Left basilar atelectasis and/or pneumonitis. Dictated by: Dictated on workstation # [id number]
[2017-04-13 12:23] LABS: ABG BASE EXCESS 1.2 MMOL/L (-2.5-2.5); ABG OXYGEN SATURATION 98 % (94-100); ABG PCO2 22 MMHG (35-45); ABG PO2 68 MMHG (79-93); ABG TCO2 23.5 MMOL/L (21.0-31.0)
[2017-04-13 12:25] LABS: ABG PH 7.62 (7.37-7.43)
[2017-04-13 12:26] LABS: ALLENS TEST YES-POS; INSPIRED O2 3; PATIENT TEMP 97.7
[2017-04-13] MEDS: AMITRIPTYLINE 25 MG (ELAVIL) TAB PO SCH (20:17)
[2017-04-13] MEDS: GABAPENTIN 600 MG (NEURONTIN) TAB PO SCH (20:18)
[2017-04-13] MEDS: inSUlin DETERMIR 1 UNIT/0.01 ML (LEVEMIR) CHARGE PER UNIT SQ SCH (21:40)
[2017-04-14] VITALS (7 sets, daily range): BP systolic 143–172; BP diastolic 68–89
[2017-04-14] MEDS: RT-ALBUTEROL/IPRATROPIUM 3 ML (DUONEB) VIAL INH SCH ×6 (02:29→22:10)
[2017-04-14] MEDS: RT-epiNEPHrine (RACEMIC) 2.25% 0.5 ML VIAL INH PRN (03:53)
[2017-04-14] MEDS: inSUlin (REGULAR) HUMAN 1 UNIT/0.01 ML (CHARGE PER UNIT) SC SCH ×4 (05:40→21:47)
[2017-04-14] MEDS: NYSTATIN ORAL SUSP 5 ML UDC PO SCH ×3 (05:42→17:22)
[2017-04-14] MEDS: CATHETER FLUSH 10 ML SYR IV SCH ×3 (05:42→21:51)
--- NOTE | 2017-04-14 07:19 | Pulmonary Consultation ---
History of Present Illness History of Present Illness Date of Consultation 04/14/17 07:14 Time Seen by Provider: 07:14 Date of Admission History of Present Illness 66yo with hx of COPD on 2 liters of oxygen at home, vocal cord spasms, anxiety/ depression, tracheostomy, and sleep apnea presented secondary to worsening SOB, and productive cough x 2 wks. Pt was recently hospitalized 03/23 secondary to flu. pt is feeling improved since admission. I am consulted for pulmonary management. Allergies and Home Medications Allergies Coded Allergies: dornase lloyd (Verified Allergy, Unknown, RAPID HEART BEAT, 03/23/17) Penicillins (Verified Adverse Reaction, Mild, NAUSEA, 03/23/17) codeine (Verified Adverse Reaction, Mild, NAUSEA, PT TAKES HYDROCODONE AT HOME, 03/23/17) Home Medications Albuterol Sulfate 18 Gm Hfa.aer.ad, 2 PUFF INH Q4H PRN for SHORTNESS OF BREATH, (Reported) Amitriptyline HCl 25 Mg Tablet, 25 MG PO HS, (Reported) Aripiprazole 10 Mg Tablet, 5 MG PO BID, (Reported) TAKES 1/2 OF A (10 MG) TABLET Aspirin 81 Mg Tablet.dr, 81 MG PO DAILY, (Reported) Atorvastatin Calcium 20 Mg Tablet, 20 MG PO HS, (Reported) Buprenorphine 1 Each Patch.tdwk, 1 PATCH TD We, (Reported) Cetirizine HCl 10 Mg Tablet, 10 MG PO DAILY, (Reported) Cholecalciferol (Vitamin D3) 1,000 Unit Capsule, 1,000 UNIT PO DAILY, (Reported) Cyclosporine 1 Each Droperette, 1 DROP OU BID, (Reported) Fenofibrate Nanocrystallized 145 Mg Tablet, 145 MG PO DAILY, (Reported) Gabapentin 600 Mg Tablet, 600 MG PO 1200, (Reported) Gabapentin 600 Mg Tablet, 1,200 MG PO HS, (Reported) TAKES 2 (600MG) TABLETS Glimepiride 2 Mg Tablet, 2 MG PO DAILY, (Reported) Hydrocodone/Acetaminophen 1 Each Tablet, 1 TAB PO QID PRN for PAIN-MODERATE, ( Reported) Ipratropium/Albuterol Sulfate 3 Ml Ampul.neb, 3 ML IH Q4H PRN for SHORTNESS OF BREATH, (Reported) Lidocaine 1 Each Adh..patch, 1 PATCH TD DAILY, (Reported) Lisinopril 5 Mg Tablet, 5 MG PO DAILY, (Reported) Metformin HCl 500 Mg Tab.er.24h, 1,000 MG PO 1730, (Reported) Metoprolol Succinate 25 Mg Tab.er.24h, 25 MG PO DAILY, (Reported) Multivit-Min/Folic Acid/Vit K1 1 Each Capsule, 1 CAP PO DAILY, (Reported) [place]-3/Dha/Epa/Fish Oil 1 Each Capsule, 2,000 MG PO BID, (Reported) TAKES 2 (1000MG) CAPSULES Pantoprazole Sodium 40 Mg Tablet.dr, 40 MG PO BID, (Reported) Sertraline HCl 100 Mg Tablet, 200 MG PO HS, (Reported) TAKES 2 (100MG) TABLETS Past Bjavojn-Lxllpa-Otfqbq Hx Patient Social History Alcohol Use: Rarely Uses Number of Drinks Today: 0 Recreational Drug Use: No Smoking Status: Former Smoker Type Used: Cigarettes Former Smoker, Quit: Feb 05, 2003 2nd Hand Smoke Exposure: Yes Recent Foreign Travel: No Contact w/Someone Who Travel: No Recent Infectious Disease Expo: No Recent Hopitalizations: No Immunizations Up To Date Tetanus Booster (TDap): Unknown PED Vaccines UTD: Yes Date of Pneumonia Vaccine: Feb 21, 2017 Date of Influenza Vaccine: Dec 22, 2016 Seasonal Allergies Seasonal Allergies: Yes Surgeries History of Surgeries: Yes Surgeries: Appendectomy, Cardiac, Coronary Stent, Gallbladder, 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, Orthopedic, Tonsillectomy, Tracheostomy Respiratory History of Respiratory Disorde: Yes Respiratory Disorders: Asthma, Pneumonia, Chronic Bronchitis, COPD, Emphysema Currently Using CPAP: Yes Currently Using BIPAP: No Cardiovascular History of Cardiac Disorders: Yes (Cardiac stents x2) Cardiac Disorders: Coronary Artery Disease, High Cholesterol, Hypertension Neurological History of Neurological Disord: No 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 System Hx 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 Disorders: No Sexually Transmitted Disease: No [employer] History: 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, Menopausal Genitourinary History of Genitourinary Disor: Yes Genitourinary Disorders: Bladder Infection, Kidney Stones Gastrointestinal History of Gastrointestinal Di: Yes (SPASMODIC COLON) Gastrointestinal Disorders: Gastroesophageal Reflux, Chronic Diarrhea, Irritable Bowel Musculoskeletal History of Musculoskeletal Dis: Yes (NECK PAIN, CERVICAL STENOSIS, ) Musculoskeletal Disorders: Arthritis, Fibromyalgia, Rheumatoid Arthritis, Chronic Back Pain Endocrine History of Endocrine Disorders: Yes Endocrine Disorders: Diabetes, Non-Insulin dep HEENT History of HEENT Disorders: Yes (VOCAL CORD SPASM/LARYNGOSPASM;GLASSES;DENTURES ) Loss of Vision: Denies Hearing Impairment: Denies Cancer History of Cancer: No Psychosocial History of Psychiatric Problem: Yes Behavioral Health Disorders: Anxiety, Depression Integumentary History of Skin or Integumenta: No Blood Transfusions History of Blood Disorders: No Adverse Reaction to a Blood Tr: No Family Medical History Family Medial History: Cancer 03 MOTHER (lung cancer 1987) Cardiovascular disease G8 BROTHER G8 SISTER Diabetes mellitus G8 SISTER Family history: Asthma 03 MOTHER Family history: Cardiovascular disease 03 FATHER Family history: Hypertension 03 MOTHER Family history: Osteoporosis 03 MOTHER History of - respiratory disease Hypertension G8 BROTHER G8 SISTER Respiratory disorder G8 BROTHER (LUNG CA) Stroke 03 MOTHER ( stroke paraylsis lower extremies w/c ) Review of Systems Time Seen by Provider: 07:42 Constitutional: Sweats, Weakness, Malaise, No: Fever, Chills, Other Eyes: No: Pain, Vision change, Conjunctivae inflammation, Eyelid inflammation, Other, Redness ENT: No: Ear pain, Ear discharge, Nose pain, Nose discharge, Nose congestion, Mouth pain, Mouth swelling, Throat pain, Throat swelling, Other Respiratory: Cough, Shortness of breath, SOB with excertion, Wheezing, Sputum Cardiovascular: Palpitations, Paroxysmal Noc. Dyspnea, Lt Headedness Gastrointestinal: No: Nausea, Vomiting, Abdominal Pain, Diarrhea, Constipation , Melena, Hematochezia, Other Genitourinary: No Dysuria, No Frequency, No Incontinence, No Hematuria, No Retention, No Other Skin: No: Rash, Lesions, Jaundice, Bruising, Other Neurological: Weakness Exam Exam Vital Signs Date Time Temp Pulse Resp B/P (MAP) Pulse Ox O2 Delivery O2 Flow Rate FiO2 04/14/17 06:05 98.0 80 17 143/72 (95) 95 Nasal Cannula 3.00 04/14/17 04:15 97.9 76 18 159/68 (98) 94 Nasal Cannula 3.00 04/14/17 03:55 91 Nasal Cannula 3.00 04/14/17 02:30 97 Nasal Cannula 3.00 04/14/17 02:00 97.8 81 17 150/68 (95) 94 Nasal Cannula 3.00 04/14/17 01:00 79 04/14/17 00:15 97.7 82 17 146/74 (98) 94 Nasal Cannula 3.00 04/13/17 22:52 93 Nasal Cannula 3.00 04/13/17 22:14 97.9 79 20 159/73 (101) 96 Nasal Cannula 3.00 04/13/17 20:11 97.3 80 20 157/69 (98) 97 Nasal Cannula 3.00 04/13/17 19:50 96 Nasal Cannula 3.00 04/13/17 19:01 94 Nasal Cannula 3.00 04/13/17 19:00 74 04/13/17 18:46 96.7 75 20 144/64 (90) 96 Nasal Cannula 3.00 04/13/17 16:04 97.9 84 24 137/65 (89) 97 Nasal Cannula 3.00 04/13/17 14:51 95 Nasal Cannula 3.00 04/13/17 13:00 70 04/13/17 11:55 93 Nasal Cannula 3.00 04/13/17 10:54 95 Nasal Cannula 3.00 04/13/17 10:45 98.6 78 38 134/56 (82) 94 Nasal Cannula 3.00 04/13/17 08:30 97.3 76 24 120/60 (80) 95 Nasal Cannula 3.00 04/13/17 08:10 Nasal Cannula 3.00 04/13/17 07:16 98 Nasal Cannula 3.00 04/13/17 07:16 71 98 32 I & O 04/14/17 07:00 Intake Total 3910 ml Output Total 5600 ml Balance -1690 ml General Appearance: No Apparent Distress, WD/WN, Anxious HEENT: PERRL/EOMI, Normal ENT Inspection, Pharynx Normal Neck: Non Tender, Supple Respiratory: Decreased Breath Sounds, Rhonci, Wheezing Cardiovascular: No Gallop, No Murmur, Tachycardia Capillary Refill: Less Than 3 Seconds Gastrointestinal: normal bowel sounds, non tender, soft, no organomegaly, no pulsatile mass Extremity: Normal Capillary Refill, Normal Inspection, Normal Range of Motion, Non Tender Neurologic/Psychiatric: Alert, Oriented x3 Skin: Normal Color, Warm/Dry Lymphatic: No Adenopathy Results Lab Laboratory Tests 04/13/17 06:19 Assessment/Plan Assessment/Plan Acute on chronic respiratory failure with hypoxia - improving PNA - CAP -Continue Abx COPDAE -SVNs -Oxygen -prednisone taper, give solumedrol 125mg IV x 1 acute renal failure NIDDM STACY -BIPAP 254 Clinical Quality Measures DVT/VTE Risk/Contraindication: Risk Factor Score Per Nursin RFS Level Per Nursing on Admit: 2=Moderate MILE SUMMERS DO Apr 14, 2017 07:19
[2017-04-14] MEDS ORDERED: methylPREDNISolone 125 MG (Solu-MEDROL) VIAL IVP NR (07:30)
[2017-04-14] MEDS: CEFEPIME 2 GM/D5W 50 ML IVPB IV SCH ×4 (08:26→21:40)
[2017-04-14] MEDS: BENZONATATE 100 MG (TESSALON) CAPSULE PO SCH ×3 (08:27→21:40)
[2017-04-14] MEDS: ARIPIPRAZOLE 10 MG (ABILIFY) TAB PO SCH ×2 (08:27→21:40)
[2017-04-14] MEDS: ASPIRIN E.C. 81 MG (ECOTRIN) TAB PO SCH (08:27)
[2017-04-14] MEDS: guaiFENesin (MUCINEX) 600 MG TAB PO SCH ×2 (08:27→21:40)
[2017-04-14] MEDS: HYDROcodone/APAP 10 MG/325 MG (LORTAB) TAB PO PRN ×2 (08:28→15:23)
--- NOTE | 2017-04-14 09:49 | Progress Note (SOAP) ---
Subjective Subjective/Events-last exam Patient seen this morning while sitting up in the chair, her is in the room at bedside. The patient reports that overall she is still not feeling back to her baseline, but is feeling much improved since admission. She is currently on 3L per NC and her baseline use is 2L NC. She reports that she rested well overnight and that she saw Dr. Reid this morning, whom she also follows with in pulmonology clinic as an outpatient. She has no complaints or concerns today, and is hoping that she might be well enough to go home on Friday or so. No acute concerns from nursing staff. Review of Systems Date Seen by Provider: Apr 14, 2017 Time Seen by Provider: 10:40 General: No Chills, No Night Sweats, No Fatigue, No Malaise HEENT: No Head Aches, No Eye Pain, No Ear Pain, No Dysphasia, Post Nasal Drip Pulmonary: Dyspnea, Cough, No Pleuritic Chest Pain Cardiovascular: Orthopnea, Paroxysmal Noc. Dyspnea, No: Chest Pain, Palpitations Gastrointestinal: No: Nausea, Vomiting, Abdominal Pain, Diarrhea Genitourinary: No Dysuria, No Frequency Neurological: No: Weakness, Numbness, Incoordination, Change in speech, Confusion Objective Exam Last Set of Vital Signs Vital Signs Date Time Temp Pulse Resp B/P (MAP) Pulse Ox O2 Delivery O2 Flow Rate FiO2 04/14/17 08:00 96.6 75 20 165/89 (114) 94 Nasal Cannula 3.00 04/13/17 07:16 32 Capillary Refill : Less Than 3 SecondsLess Than 3 Seconds I&O Intake and Output 04/14/17 00:00 Intake Total 4570 ml Output Total 7200 ml Balance -2630 ml Intake Oral 4520 ml IV Total 50 ml Output Urine Total 7200 ml # Voids 2 General: Alert, Oriented X3, Cooperative, Mild Distress HEENT: Atraumatic, PERRLA, EOMI, Mucous Memb Moist/[place] Neck: Supple, No JVD, No Thyromegaly Lungs: Other (scattered wheezes, decreased air exchange throughout, most notable in bases) Heart: Regular Rate, Normal S1, Normal S2 Abdomen: Normal Bowel Sounds, Soft, No Tenderness, No Hepatosplenomegaly, No Masses Extremities: No Clubbing, No Cyanosis, Normal Pulses, No Tenderness/Swelling Skin: No Rashes, No Significant Lesion Neuro: Normal Speech, Normal Tone, Sensation Intact, Cranial Nerves 3-12 NL Psych/Mental Status: Mental Status NL, Mood NL Results/Procedures Lab Laboratory Tests 04/13/17 11:06: Glucometer 181H 04/13/17 12:15: Blood Gas Puncture Site right radial, Blood Gas Patient Temperature 97.7, Arterial Blood pH 7.62*H, Arterial Blood Partial Pressure CO2 22L, Arterial Blood Partial Pressure O2 68L, Arterial Blood HCO3 23, Arterial Blood Total CO2 23.5, Arterial Blood Oxygen Saturation 98, Arterial Blood Base Excess 1.2, Afshin Test YES-POS, Blood Gas Ventilator Setting NA, Blood Gas Inspired Oxygen 3 04/13/17 16:07: Glucometer 306H 04/13/17 21:18: Glucometer 375H 04/14/17 05:31: Glucometer 190H Microbiology 04/10/17 Blood Culture - Preliminary, Resulted No growth 04/10/17 Influenza Types A,B Antigen (CASSIE) - Final, Complete 04/10/17 Urine Culture - Final, Complete Radiology Date of Exam: 04/10/17 CHEST 1 VIEW, AP/PA ONLY INDICATION: Cough. EXAMINATION: Erect AP chest at 3:44. FINDINGS: The heart size is within normal limits and stable when compared to 03/23/2017. The prior study did note right infrahilar atelectasis/infiltrate. On this exam there are a few crowded bronchovascular markings in the right infrahilar region but I am not certain that there is any pneumonia or atelectasis present in this area. The right upper lung and left lung are clear. The mediastinum is not widened. The osseous structures are intact. The orthopedic hardware overlying the cervicothoracic junction, seen previously, is again evident. IMPRESSION: 1. There are a few crowded bronchovascular markings in the right infrahilar region but there is no clear evidence for pneumonia or atelectasis in this area. 2. There is no acute cardiopulmonary abnormality noted otherwise. Date of Exam:04/11/17 CHEST PA/LAT (2 VIEW) INDICATION: Pneumonia. COMPARISON: 04/10/2017. FINDINGS: The right greater than left perihilar and infrahilar infiltrates have increased. No effusion or pneumothorax. IMPRESSION: The bilateral infiltrates in the mid to lower lungs, greater right, have progressed from the prior exam. Assessment/Plan Assessment/Plan Admission Dx Acute on Chronic Respiratory Failure Pneumonia Acute Exacerbation of COPD Dependence on Supplemental Oxygen Obesity Anemia Plan 66 yo F with long standing COPD that was admitted with increase oxygen requirement with concerns for PNA 1. Acute on Chronic Respiratory Failure with Hypoxia - Dr Reid Consulted as this is a mutual patient with long standing COPD - RT with MAT protocol 04/12 -Patient is overall improved with her respiratory failure and hypoxemia after starting Solu-Medrol. She is currently at 125 mg every 6 hours. 04/14 -pt continues to make slow improvement; seen by Dr. Reid who has been consulted for pulmonary management -changed to Prednisone 60 mg PO daily today, patient will likely need a long taper given her longstanding lung disease, but will defer this to Dr. Reid and his expertise -slowly weaning down on oxygen, now on 3L NC (baseline is 2L NC) 2. Community Acquire PNA - Broad spectrum antiboitics - See Above 04/12 Today is day number 3 of cefepime 04/13 -Day number 4 cefepime 04/14 -Day 5 Cefepime; given that pt had hospitalization ~2 weeks ago for influenza, possibility for HCAP vs CAP. 3. COPD Exacerbation - Continue IV steroids 04/13 -Begin to taper Solu-Medrol 125 mg IV every 8 hours 04/14 -pt received last dose of IV steroids this AM and has started PO prednisone at 60 mg, will likely require a long taper given her longstanding lung disease 4. Acute Renal Failure - Gentle hydration, repeat CMP in AM 04/12 -Her creatinine is 1.09 today. We will continue to monitor. She is taking oral fluids okay. 04/13 -Creatinine this morning is 0.84, reassuring 04/14 -acute kidney injury seems to have resolved after gentle hydration and has remained in normal limits today 5. Non Insulin Dependent DM - Started on Levemir qhs while on steroids, SSI 04/12 -Levemir 15 units was started last night. Patient is aware of this. She thinks most likely she will not need this at home but this is to be determined. 04/13 -Glucose 114 this a.m. with Levemir continuing during the evening 04/14 -continues to have some hypergylcemia, likely secondary to high dose IV solumedrol she has been receiving; will continue with sliding scale and Levemir 15 units at HS for now and see how patient does; as discharge comes closer will make final determination if patient will need low dose of insulin at home or if we can discontinue it at discharge 6. STACY on Bipap 04/14 -using home machine at night and for naps 7. HTN: Normotensive - Hold home blood pressure meds 04/14 -blood pressure is starting to rise and pt beginning to run slightly hypertensive, will likely add back in some of her home blood pressure medications as she is clinically improving from a respiratory standpoint and she can tolerating her home anti-hypertensives 8. HLD 04/14 -low cholesterol, heart healthy diet 9. Hypokalemia: replaced and repeat BMP in AM 04/12 -Improved. This will be rechecked in the morning of April 1304/14 -resolved, will recheck in AM FEN: Diabetic, Heart Healthy Diet DVT Ppx: SCDs, Ambulation, Lovenox Dispo: Patient making good progress, but continues to require an inpatient level of care due to her increased oxygen demand and her multiple comorbid conditions; if patient continues with good progress at her current rate, she may be ready for discharge in 48-96 hours. Clinical Quality Measures DVT/VTE Risk/Contraindication: Risk Factor Score Per Nursin RFS Level Per Nursing on Admit: 2=Moderate YANDEL VERONICA DO Apr 14, 2017 09:49
[2017-04-14] MEDS: predniSONE 10 MG TAB PO SCH (11:38)
[2017-04-14] MEDS: AMITRIPTYLINE 25 MG (ELAVIL) TAB PO SCH (21:40)
[2017-04-14] MEDS: GABAPENTIN 600 MG (NEURONTIN) TAB PO SCH (21:40)
[2017-04-14] MEDS: inSUlin DETERMIR 1 UNIT/0.01 ML (LEVEMIR) CHARGE PER UNIT SQ SCH (21:47)
[2017-04-15] VITALS: BP 168/74
[2017-04-15] MEDS: NYSTATIN ORAL SUSP 5 ML UDC PO SCH ×5 (00:33→23:26)
[2017-04-15] MEDS: HYDROcodone/APAP 10 MG/325 MG (LORTAB) TAB PO PRN ×2 (02:00→16:47)
[2017-04-15] MEDS: RT-ALBUTEROL/IPRATROPIUM 3 ML (DUONEB) VIAL INH SCH ×6 (02:56→22:41)
[2017-04-15] MEDS: RT-epiNEPHrine (RACEMIC) 2.25% 0.5 ML VIAL INH PRN (03:04)
[2017-04-15 04:00] VITALS: BP 157/72
[2017-04-15] MEDS: inSUlin (REGULAR) HUMAN 1 UNIT/0.01 ML (CHARGE PER UNIT) SC SCH ×4 (06:30→21:19)
[2017-04-15] MEDS: CATHETER FLUSH 10 ML SYR IV SCH ×3 (06:30→19:56)
[2017-04-15 07:41] LABS: BASOPHILS # (AUTO) 0.1 10^3/uL (0.0-0.1); BASOPHILS % (AUTO) 1 % (0-10); EOSINOPHILS % (AUTO) 0 % (0-10); HEMATOCRIT 30 % (35-52); HEMOGLOBIN 10.2 G/DL (11.5-16.0); LYMPHOCYTES # (AUTO) 2.6 X 10^3 (1.0-4.0); LYMPHOCYTES % (AUTO) 17 % (12-44); MEAN CORPUSCULAR HEMOGLOBIN 30 PG (25-34); MEAN CORPUSCULAR HGB CONC 34 G/DL (32-36); MEAN CORPUSCULAR VOLUME 87 FL (80-99); MEAN PLATELET VOLUME 10.1 FL (7.4-10.4); MONOCYTES # (AUTO) 1.4 X 10^3 (0.0-1.0); MONOCYTES % (AUTO) 9 % (0-12); NEUTROPHILS # (AUTO) 11.3 X 10^3 (1.8-7.8); NEUTROPHILS % (AUTO) 73 % (42-75); PLATELET COUNT 236 10^3/uL (130-400); RED BLOOD COUNT 3.45 10^6/uL (4.35-5.85); WHITE BLOOD COUNT 15.4 10^3/uL (4.3-11.0)
[2017-04-15 08:00] VITALS: BP 164/72
--- NOTE | 2017-04-15 08:01 | Pulmonary Progress Note ---
Subjective Time Seen by Provider: 08:00 Subjective/Events-last exam PT appears improved. No complications noted. Exam Exam Vital Signs Date Time Temp Pulse Resp B/P (MAP) Pulse Ox O2 Delivery O2 Flow Rate FiO2 04/15/17 07:14 95 Nasal Cannula 3.00 04/15/17 04:00 96.9 76 16 157/72 (100) 96 Nasal Cannula 3.00 04/15/17 03:04 96 Nasal Cannula 3.00 04/15/17 02:56 96 Nasal Cannula 3.00 04/15/17 01:00 75 04/15/17 00:00 97.9 89 18 168/74 (105) 95 Nasal Cannula 3.50 04/14/17 22:10 92 Nasal Cannula 3.00 04/14/17 20:10 94 Nasal Cannula 3.00 04/14/17 19:00 88 04/14/17 18:21 94 Nasal Cannula 3.00 04/14/17 15:55 98.4 76 20 172/78 (109) 95 Nasal Cannula 3.00 04/14/17 15:28 72 04/14/17 12:00 96.5 77 20 167/77 (107) 94 Nasal Cannula 3.00 04/14/17 11:13 96 Nasal Cannula 3.00 04/14/17 08:00 96.6 75 20 165/89 (114) 94 Nasal Cannula 3.00 04/14/17 08:00 94 Nasal Cannula 3.00 I & O 04/15/17 07:00 Intake Total 2210 ml Output Total 4700 ml Balance -2490 ml General Appearance: No Apparent Distress, WD/WN, Anxious HEENT: PERRL/EOMI, Normal ENT Inspection, Pharynx Normal Neck: Non Tender, Supple Respiratory: Decreased Breath Sounds, Rhonci, Wheezing Cardiovascular: No Gallop, No Murmur, Tachycardia Capillary Refill: Less Than 3 Seconds Gastrointestinal: normal bowel sounds, non tender, soft, no organomegaly, no pulsatile mass Extremity: Normal Capillary Refill, Normal Inspection, Normal Range of Motion, Non Tender Neurologic/Psychiatric: Alert, Oriented x3 Skin: Normal Color, Warm/Dry Lymphatic: No Adenopathy Results Lab Laboratory Tests 04/15/17 06:45 Assessment/Plan Assessment/Plan Acute on chronic respiratory failure with hypoxia - improving PNA - CAP -Continue Abx COPDAE -SVNs -Oxygen -prednisone taper, acute renal failure NIDDM STACY -BIPAP 232 Clinical Quality Measures DVT/VTE Risk/Contraindication: Risk Factor Score Per Nursin RFS Level Per Nursing on Admit: 2=Moderate MILE SUMMERS DO Apr 15, 2017 08:01
[2017-04-15 08:04] LABS: ALBUMIN 3.8 GM/DL (3.2-4.5); BILIRUBIN,TOTAL 0.5 MG/DL (0.1-1.0); CALCIUM 9.1 MG/DL (8.5-10.1); CREATININE SERUM 0.95 MG/DL (0.60-1.30); MAGNESIUM 2.5 MG/DL (1.8-2.4); POTASSIUM 3.8 MMOL/L (3.6-5.0); TOTAL PROTEIN 6.5 GM/DL (6.4-8.2)
[2017-04-15] MEDS: BENZONATATE 100 MG (TESSALON) CAPSULE PO SCH ×3 (08:46→19:52)
[2017-04-15] MEDS: guaiFENesin (MUCINEX) 600 MG TAB PO SCH ×2 (08:46→19:52)
[2017-04-15] MEDS: ASPIRIN E.C. 81 MG (ECOTRIN) TAB PO SCH (08:46)
[2017-04-15] MEDS: CEFEPIME 2 GM/D5W 50 ML IVPB IV SCH ×4 (08:46→19:51)
[2017-04-15] MEDS: ARIPIPRAZOLE 10 MG (ABILIFY) TAB PO SCH ×2 (08:47→19:52)
[2017-04-15 09:12] LABS: ANISOCYTOSIS SLIGHT; BAND NEUTROPHILS 13 %; BASOPHILS % (MANUAL) 0 %; EOSINOPHILS % (MANUAL) 0 %; LYMPHOCYTES % (MANUAL) 18 %; METAMYELOCYTES % 1 %; MONOCYTES % (MANUAL) 10 %; MYELOCYTES % 2 %; NEUTROPHILS % (MANUAL) 56 %
--- NOTE | 2017-04-15 09:16 | Progress Note (SOAP) ---
Subjective Subjective/Events-last exam No acute events overnight. Patient reports that she feels like she is slowly getting better, but doesn't feel like her breathing is much better today than yesterday. She reports coughing quite a bit, but not being able to cough anything up. Is on 3L NC. Feels very constipated and would like something to help with that - reports a history of IBS and that she often has to take something for constipation. Is also wanting to get up and walk in halls if possible. No additional concerns from nursing staff. Review of Systems Date Seen by Provider: Apr 15, 2017 Time Seen by Provider: 10:30 General: No Chills, No Night Sweats, No Fatigue HEENT: No Head Aches, No Eye Pain, No Dysphasia Pulmonary: Dyspnea, Cough Cardiovascular: Orthopnea, No: Chest Pain, Palpitations Gastrointestinal: Constipation, No: Nausea, Vomiting, Abdominal Pain, Diarrhea Genitourinary: No Dysuria, No Frequency Musculoskeletal: No: neck pain, shoulder pain Neurological: No: Weakness, Numbness, Change in speech, Confusion, Seizures Objective Exam Last Set of Vital Signs Vital Signs Date Time Temp Pulse Resp B/P (MAP) Pulse Ox O2 Delivery O2 Flow Rate FiO2 04/15/17 07:14 95 Nasal Cannula 3.00 04/15/17 04:00 96.9 76 16 157/72 (100) 04/13/17 07:16 32 Capillary Refill : Less Than 3 SecondsLess Than 3 Seconds I&O Intake and Output 04/15/17 00:00 Intake Total 2160 ml Output Total 3600 ml Balance -1440 ml Intake Oral 2110 ml IV Total 50 ml Output Urine Total 3600 ml # Voids 2 General: Alert, Oriented X3, Cooperative, Mild Distress HEENT: Atraumatic, EOMI, Mucous Memb Moist/[place] Neck: Supple, No Thyromegaly, +2 Carotid Pulse No Bruit Lungs: Other (lungs coarse throughout ) Heart: Regular Rate, Normal S1, Normal S2, No Murmurs Abdomen: Normal Bowel Sounds, Soft, No Tenderness, No Hepatosplenomegaly, No Masses Extremities: No Clubbing, No Cyanosis, No Tenderness/Swelling Skin: No Rashes, No Significant Lesion Neuro: Normal Gait, Normal Speech, Normal Tone, Sensation Intact, Cranial Nerves 3-12 NL Psych/Mental Status: Mental Status NL, Mood NL Results/Procedures Lab Laboratory Tests 04/14/17 11:27: Glucometer 224H 04/14/17 16:47: Glucometer 336H 04/14/17 20:47: Glucometer 384H 04/15/17 06:03: Glucometer 202H 04/15/17 06:45: White Blood Count 15.4H, Red Blood Count 3.45L, Hemoglobin 10.2L, Hematocrit 30L , Mean Corpuscular Volume 87, Mean Corpuscular Hemoglobin 30, Mean Corpuscular Hemoglobin Concent 34, Red Cell Distribution Width 14.0, Platelet Count 236, Mean Platelet Volume 10.1, Neutrophils (%) (Auto) 73, Lymphocytes (%) (Auto) 17 , Monocytes (%) (Auto) 9, Eosinophils (%) (Auto) 0, Basophils (%) (Auto) 1, Neutrophils # (Auto) 11.3H, Lymphocytes # (Auto) 2.6, Monocytes # (Auto) 1.4H, Eosinophils # (Auto) 0.0, Basophils # (Auto) 0.1, Neutrophils % (Manual) 56, Lymphocytes % (Manual) 18, Monocytes % (Manual) 10, Eosinophils % (Manual) 0, Basophils % (Manual) 0, Metamyelocytes % 1, Myelocytes % 2, Band Neutrophils 13 , Anisocytosis SLIGHT, Sodium Level 139, Potassium Level 3.8, Chloride Level 102 , Carbon Dioxide Level 24, Anion Gap 13, Blood Urea Nitrogen 30H, Creatinine 0.95, Estimat Glomerular Filtration Rate 59, BUN/Creatinine Ratio 32, Glucose Level 189H, Calcium Level 9.1, Magnesium Level 2.5H, Total Bilirubin 0.5, Aspartate Amino Transf (AST/SGOT) 14, Alanine Aminotransferase (ALT/SGPT) 21, Alkaline Phosphatase 61, Total Protein 6.5, Albumin 3.8 Microbiology 04/10/17 Blood Culture - Preliminary, Resulted No growth 04/10/17 Influenza Types A,B Antigen (CASSIE) - Final, Complete 04/10/17 Urine Culture - Final, Complete Radiology Date of Exam: 04/10/17 CHEST 1 VIEW, AP/PA ONLY INDICATION: Cough. EXAMINATION: Erect AP chest at 3:44. FINDINGS: The heart size is within normal limits and stable when compared to 03/23/2017. The prior study did note right infrahilar atelectasis/infiltrate. On this exam there are a few crowded bronchovascular markings in the right infrahilar region but I am not certain that there is any pneumonia or atelectasis present in this area. The right upper lung and left lung are clear. The mediastinum is not widened. The osseous structures are intact. The orthopedic hardware overlying the cervicothoracic junction, seen previously, is again evident. IMPRESSION: 1. There are a few crowded bronchovascular markings in the right infrahilar region but there is no clear evidence for pneumonia or atelectasis in this area. 2. There is no acute cardiopulmonary abnormality noted otherwise. Date of Exam:04/11/17 CHEST PA/LAT (2 VIEW) INDICATION: Pneumonia. COMPARISON: 04/10/2017. FINDINGS: The right greater than left perihilar and infrahilar infiltrates have increased. No effusion or pneumothorax. IMPRESSION: The bilateral infiltrates in the mid to lower lungs, greater right, have progressed from the prior exam. Assessment/Plan Assessment/Plan Admission Dx see below Plan 66 yo F with long standing COPD that was admitted with increase oxygen requirement with concerns for PNA 1. Acute on Chronic Respiratory Failure with Hypoxia - Dr Reid Consulted as this is a mutual patient with long standing COPD - RT with MAT protocol 04/12 -Patient is overall improved with her respiratory failure and hypoxemia after starting Solu-Medrol. She is currently at 125 mg every 6 hours. 04/14 -pt continues to make slow improvement; seen by Dr. Reid who has been consulted for pulmonary management -changed to Prednisone 60 mg PO daily today, patient will likely need a long taper given her longstanding lung disease, but will defer this to Dr. Reid and his expertise -slowly weaning down on oxygen, now on 3L NC (baseline is 2L NC) 04/15 -continues on PO prednisone -remains on 3L NC -defer pulmonary management to Dr. Reid 2. Community Acquire PNA - Broad spectrum antiboitics - See Above 04/12 Today is day number 3 of cefepime 04/13 -Day number 4 cefepime 04/14 -Day 5 Cefepime; given that pt had hospitalization ~2 weeks ago for influenza, possibility for HCAP vs CAP. 04/15 -Day 6 Cefepime -slight increase in WBC today 12.1 -->15.4 3. COPD Exacerbation - Continue IV steroids 04/13 -Begin to taper Solu-Medrol 125 mg IV every 8 hours 04/14 -pt received last dose of IV steroids this AM and has started PO prednisone at 60 mg, will likely require a long taper given her longstanding lung disease 04/15 -defer pulmonary management to Dr. Reid 4. Acute Renal Failure - Gentle hydration, repeat CMP in AM 04/12 -Her creatinine is 1.09 today. We will continue to monitor. She is taking oral fluids okay. 04/13 -Creatinine this morning is 0.84, reassuring 04/14 -acute kidney injury seems to have resolved after gentle hydration and has remained in normal limits today 04/15 -resolved 5. Non Insulin Dependent DM - Started on Levemir qhs while on steroids, SSI 04/12 -Levemir 15 units was started last night. Patient is aware of this. She thinks most likely she will not need this at home but this is to be determined. 04/13 -Glucose 114 this a.m. with Levemir continuing during the evening 04/14 -continues to have some hypergylcemia, likely secondary to high dose IV solumedrol she has been receiving; will continue with sliding scale and Levemir 15 units at HS for now and see how patient does; as discharge comes closer will make final determination if patient will need low dose of insulin at home or if we can discontinue it at discharge 04/15 -glucose remains elevated: [phone] 6. STACY on Bipap 04/14 -using home machine at night and for naps 04/15 -continue home machine use when asleep 7. HTN: Normotensive - Hold home blood pressure meds 04/14 -blood pressure is starting to rise and pt beginning to run slightly hypertensive, will likely add back in some of her home blood pressure medications as she is clinically improving from a respiratory standpoint and she can tolerating her home anti-hypertensives 8. HLD 04/14 -low cholesterol, heart healthy diet 9. Hypokalemia: replaced and repeat BMP in AM 04/12 -Improved. This will be rechecked in the morning of April 1304/14 -resolved, will recheck in AM FEN: Diabetic, Heart Healthy Diet DVT Ppx: SCDs, Ambulation, Lovenox Dispo: Patient making good progress, but continues to require an inpatient level of care due to her increased oxygen demand and her multiple comorbid conditions; if patient continues with good progress at her current rate, she may be ready for discharge in 48-72 hours. Clinical Quality Measures DVT/VTE Risk/Contraindication: Risk Factor Score Per Nursin RFS Level Per Nursing on Admit: 2=Moderate YANDEL VERONICA DO Apr 15, 2017 09:16
[2017-04-15] MEDS: predniSONE 10 MG TAB PO SCH (11:37)
[2017-04-15 12:00] VITALS: BP 132/62
[2017-04-15] MEDS: POLYETHYLENE GLYCOL 17 GM (MIRALAX) PACK PO PRN (13:13)
--- NOTE | 2017-04-15 13:15 | Physical Therapy Progress Note ---
Therapy Progress Note Patient declined PT intervention reporting she is up independently in hallway with O2 tank and family. PT educated patient on importance of continuing and increase activity and patient voices understanding. No skilled PT indicated due to refusal. 1 visit SAL [facility] PT Apr 15, 2017 13:15
[2017-04-15 16:11] VITALS: BP 154/72
[2017-04-15] MEDS: AMITRIPTYLINE 25 MG (ELAVIL) TAB PO SCH (19:52)
[2017-04-15] MEDS: GABAPENTIN 600 MG (NEURONTIN) TAB PO SCH (19:52)
[2017-04-15] MEDS: inSUlin DETERMIR 1 UNIT/0.01 ML (LEVEMIR) CHARGE PER UNIT SQ SCH (21:19)
[2017-04-16] VITALS: BP 163/73
[2017-04-16] MEDS: RT-ALBUTEROL/IPRATROPIUM 3 ML (DUONEB) VIAL INH SCH ×3 (02:49→10:43)
[2017-04-16 04:00] VITALS: BP 163/86
[2017-04-16] MEDS: inSUlin (REGULAR) HUMAN 1 UNIT/0.01 ML (CHARGE PER UNIT) SC SCH ×2 (05:15→11:08)
[2017-04-16] MEDS: CATHETER FLUSH 10 ML SYR IV SCH (05:21)
[2017-04-16] MEDS: NYSTATIN ORAL SUSP 5 ML UDC PO SCH ×2 (05:21→11:09)
[2017-04-16 05:55] LABS: BASOPHILS # (AUTO) 0.2 10^3/uL (0.0-0.1); BASOPHILS % (AUTO) 1 % (0-10); EOSINOPHILS % (AUTO) 0 % (0-10); HEMATOCRIT 31 % (35-52); HEMOGLOBIN 10.7 G/DL (11.5-16.0); LYMPHOCYTES # (AUTO) 2.9 X 10^3 (1.0-4.0); LYMPHOCYTES % (AUTO) 19 % (12-44); MEAN CORPUSCULAR HEMOGLOBIN 30 PG (25-34); MEAN CORPUSCULAR HGB CONC 34 G/DL (32-36); MEAN CORPUSCULAR VOLUME 87 FL (80-99); MEAN PLATELET VOLUME 9.8 FL (7.4-10.4); MONOCYTES # (AUTO) 1.2 X 10^3 (0.0-1.0); MONOCYTES % (AUTO) 8 % (0-12); NEUTROPHILS # (AUTO) 11.2 X 10^3 (1.8-7.8); NEUTROPHILS % (AUTO) 73 % (42-75); PLATELET COUNT 240 10^3/uL (130-400); RED BLOOD COUNT 3.58 10^6/uL (4.35-5.85); WHITE BLOOD COUNT 15.5 10^3/uL (4.3-11.0)
--- NOTE | 2017-04-16 05:56 | Pulmonary Progress Note ---
Subjective Time Seen by Provider: 06:27 Subjective/Events-last exam PT feels improved. However still coughing. Exam Exam Vital Signs Date Time Temp Pulse Resp B/P (MAP) Pulse Ox O2 Delivery O2 Flow Rate FiO2 04/16/17 04:00 97.8 73 19 163/86 (111) 96 Nasal Cannula 3.00 04/16/17 02:49 95 Nasal Cannula 3.00 04/16/17 01:00 72 04/16/17 00:00 96.4 84 16 163/73 (103) 96 Nasal Cannula 3.00 04/15/17 22:43 94 Nasal Cannula 3.00 04/15/17 19:56 Nasal Cannula 3.00 04/15/17 19:03 94 Nasal Cannula 3.00 04/15/17 19:00 83 04/15/17 16:11 98.1 81 20 154/72 (99) 95 Nasal Cannula 3.00 04/15/17 14:49 96 Nasal Cannula 3.00 04/15/17 12:00 96.7 73 20 132/62 (85) 94 Nasal Cannula 3.00 04/15/17 10:50 96 Nasal Cannula 3.00 04/15/17 08:00 92 Nasal Cannula 3.00 04/15/17 08:00 97.4 84 20 164/72 (102) 92 Nasal Cannula 3.00 04/15/17 07:14 95 Nasal Cannula 3.00 I & O 04/16/17 07:00 Intake Total 3330 ml Output Total 6400 ml Balance -3070 ml General Appearance: No Apparent Distress, WD/WN, Anxious HEENT: PERRL/EOMI, Normal ENT Inspection, Pharynx Normal Neck: Non Tender, Supple Respiratory: Decreased Breath Sounds, Rhonci, Wheezing Cardiovascular: No Gallop, No Murmur, Tachycardia Capillary Refill: Less Than 3 Seconds Gastrointestinal: normal bowel sounds, non tender, soft, no organomegaly, no pulsatile mass Extremity: Normal Capillary Refill, Normal Inspection, Normal Range of Motion, Non Tender Neurologic/Psychiatric: Alert, Oriented x3 Skin: Normal Color, Warm/Dry Lymphatic: No Adenopathy Results Lab Laboratory Tests 04/15/17 06:45 Assessment/Plan Assessment/Plan Acute on chronic respiratory failure with hypoxia - improving PNA - CAP -Continue Abx with omnicef at discharge for total of 10days. COPDAE -SVNs -Oxygen -prednisone taper, acute renal failure NIDDM STACY -BIPAP PT is ok for discharge from pulmonary standpoint. I will follow with her as out patient. Continue prednisone taper and resume previous home INH. continue Claritin and Singulair. 232 Clinical Quality Measures DVT/VTE Risk/Contraindication: Risk Factor Score Per Nursin RFS Level Per Nursing on Admit: 2=Moderate MILE SUMMERS DO Apr 16, 2017 05:56
[2017-04-16 06:24] LABS: ALANINE AMINOTRANSFERASE 21 U/L (0-55); ALBUMIN 3.8 GM/DL (3.2-4.5); ALKALINE PHOSPHATASE 61 U/L (40-136); BILIRUBIN,TOTAL 0.4 MG/DL (0.1-1.0); BUN/CREATININE RATIO 30; CALCIUM 9.1 MG/DL (8.5-10.1); CARBON DIOXIDE 24 MMOL/L (21-32); CHLORIDE 102 MMOL/L (98-107); CREATININE SERUM 0.87 MG/DL (0.60-1.30); GFR ESTIMATED > 60; GLUCOSE 166 MG/DL (70-105); MAGNESIUM 2.4 MG/DL (1.8-2.4); POTASSIUM 3.8 MMOL/L (3.6-5.0); SODIUM 139 MMOL/L (135-145); TOTAL PROTEIN 6.6 GM/DL (6.4-8.2)
[2017-04-16] MEDS: ARIPIPRAZOLE 10 MG (ABILIFY) TAB PO SCH (08:28)
[2017-04-16] MEDS: ASPIRIN E.C. 81 MG (ECOTRIN) TAB PO SCH (08:28)
[2017-04-16] MEDS: guaiFENesin (MUCINEX) 600 MG TAB PO SCH (08:28)
[2017-04-16] MEDS: BENZONATATE 100 MG (TESSALON) CAPSULE PO SCH (08:29)
[2017-04-16] MEDS: POLYETHYLENE GLYCOL 17 GM (MIRALAX) PACK PO PRN (08:29)
[2017-04-16] MEDS: HYDROcodone/APAP 10 MG/325 MG (LORTAB) TAB PO PRN (08:39)
[2017-04-16 08:43] VITALS: BP 170/80
[2017-04-16] MEDS ORDERED: CEFDINIR 300 MG (OMNICEF) CAP PO SCH (09:00)
[2017-04-16] MEDS ORDERED: LORATADINE (CLARITIN) 10 MG TAB PO SCH (09:00)
--- NOTE | 2017-04-16 10:06 | Discharge Summary ---
Diagnosis/Chief Complaint Date of Admission Apr 14, 2017 at 14:40 Date of Discharge 04/16/17 Admission Diagnosis Admission Diagnosis Acute on Chronic Respiratory Failure with Hypoxia Community Acquire PNA COPD Exacerbation Acute Renal Failure Non Insulin Dependent DM STACY HTN HLD Hypokalemia Discharge Diagnosis 66 yo F with long standing COPD that was admitted with increase oxygen requirement with concerns for PNA 1. Acute on Chronic Respiratory Failure with Hypoxia - Dr Reid Consulted as this is a mutual patient with long standing COPD - RT with MAT protocol 04/12 -Patient is overall improved with her respiratory failure and hypoxemia after starting Solu-Medrol. She is currently at 125 mg every 6 hours. 04/14 -pt continues to make slow improvement; seen by Dr. Reid who has been consulted for pulmonary management -changed to Prednisone 60 mg PO daily today, patient will likely need a long taper given her longstanding lung disease, but will defer this to Dr. Reid and his expertise -slowly weaning down on oxygen, now on 3L NC (baseline is 2L NC) 04/15 -continues on PO prednisone -remains on 3L NC -defer pulmonary management to Dr. Reid 04/16 -per Pulmonology okay to discharge to home with prednisone taper and 10 days total of antibiotics -continue on 3L O2 until seen in clinic for follow up -continue singulair and claritin, inhalers, nebulizers as documented on discharge instructions 2. Community Acquire PNA - Broad spectrum antiboitics - See Above 04/12 Today is day number 3 of cefepime 04/13 -Day number 4 cefepime 04/14 -Day 5 Cefepime; given that pt had hospitalization ~2 weeks ago for influenza, possibility for HCAP vs CAP. 04/15 -Day 6 Cefepime -slight increase in WBC today 12.1 -->15.4 04/16 -Day 7 Cefepime -discharge home on Omnicef x3 more days and prednisone taper - 40 mg PO x3 days , 30 mg PO x3 days, 20 mg PO x3 days, 10 mg x3 days -WBC stable 3. COPD Exacerbation - Continue IV steroids 04/13 -Begin to taper Solu-Medrol 125 mg IV every 8 hours 04/14 -pt received last dose of IV steroids this AM and has started PO prednisone at 60 mg, will likely require a long taper given her longstanding lung disease 04/15 -defer pulmonary management to Dr. Reid 04/16 -prednisone taper as outlined above -outpatient follow up with Dr. Reid 4. Acute Renal Failure - Gentle hydration, repeat CMP in AM 04/12 -Her creatinine is 1.09 today. We will continue to monitor. She is taking oral fluids okay. 04/13 -Creatinine this morning is 0.84, reassuring 04/14 -acute kidney injury seems to have resolved after gentle hydration and has remained in normal limits today 04/15 -resolved 5. Non Insulin Dependent DM - Started on Levemir qhs while on steroids, SSI 04/12 -Levemir 15 units was started last night. Patient is aware of this. She thinks most likely she will not need this at home but this is to be determined. 04/13 -Glucose 114 this a.m. with Levemir continuing during the evening 04/14 -continues to have some hypergylcemia, likely secondary to high dose IV solumedrol she has been receiving; will continue with sliding scale and Levemir 15 units at HS for now and see how patient does; as discharge comes closer will make final determination if patient will need low dose of insulin at home or if we can discontinue it at discharge 04/15 -glucose remains elevated: [phone] 04/16 -will stop insulin and discharge on home medications 6. STACY on Bipap 04/14 -using home machine at night and for naps 04/15 -continue home machine use when asleep 7. HTN: Normotensive - Hold home blood pressure meds 04/14 -blood pressure is starting to rise and pt beginning to run slightly hypertensive, will likely add back in some of her home blood pressure medications as she is clinically improving from a respiratory standpoint and she can tolerating her home anti-hypertensives 04/16 -resume home medications on discharge 8. HLD 04/14 -low cholesterol, heart healthy diet 9. Hypokalemia: replaced and repeat BMP in AM 04/12 -Improved. This will be rechecked in the morning of April 1304/14 -resolved, will recheck in AM FEN: Diabetic, Heart Healthy Diet DVT Ppx: SCDs, Ambulation, Lovenox Dispo: Patient significantly improved from yesterday and requesting discharge; cleared by pulmonology for discharge with recommendations as outlined above. Discharge to home, medications as outlined, oxygen at 3L until seen at follow up appointment. Chief Complaint/HPI Chief Complaint/HPI 66yo female with PMH of COPD, HTN, Hyperlipidemia, Sleep Apnea, Diabetes, Neuropathy, and Anxiety/Depression presents with cough, fever and increased SOA. Pt is normally on 2L at home of oxygen. Pt states she had the flu and was hospitalized on 03/23/17. She returned home and improved, but for the last 2 weeks she has started to develop a cough, increased SOA, and increased mucous production. She started to have weakness and fever for the past few days. Pt states she feels a lot better today. She feels like there is a lot of mucous in her lungs that she can't get out. SOA is improving. Pt has increased SOA when she gets up to go to bathroom. Pt states she has some chest pain when she coughs. The cough also hurts her throat. Pt also had palpitations after her breathing treatment this AM. Pt states she has had some nausea and unable to keep much down the past few days. Pt denies N/V currently; medication has helped since hospitalization. Pt states she has had some swelling in her hands the last few days; denies pain or numbness/tingling. Denies fever, chills, abdominal pain, N/V/D/C, skin changes, urinary problems, numbness/tingling. Pt states she has IBS and sometimes has D/C. Pt reports she has had some headaches. Pt quit smoking 15 years ago. Pt uses a CPAP at home for sleep apnea; she will have her bring it today. Pt states she was told she has pre-diabetes. Pt states her sugars have never been as high as they were during this hospitalization. Discharge Summary-Simple/Stand Consultations Dr. Reid, Pulmonology Discharge Physical Examination Allergies: Coded Allergies: dornase lloyd (Verified Allergy, Unknown, RAPID HEART BEAT, 03/23/17) Penicillins (Verified Adverse Reaction, Mild, NAUSEA, 03/23/17) codeine (Verified Adverse Reaction, Mild, NAUSEA, PT TAKES HYDROCODONE AT HOME, 03/23/17) Vitals & I&Os Vital Sign - Last 12Hours Date Time Temp Pulse Resp B/P (MAP) Pulse Ox O2 Delivery O2 Flow Rate FiO2 04/16/17 08:43 96.2 78 20 170/80 (110) 94 Nasal Cannula 3.00 04/13/17 07:16 32 Intake and Output 04/16/17 00:00 Intake Total 2920 ml Output Total 3000 ml Balance -80 ml General Appearance: Alert, Oriented X3, Cooperative, No Acute Distress HEENT: Atraumatic, EOMI, Mucous Memb Moist/[place] Respiratory: Other (scattered expiratory wheezes, but significant improvement from previous; loose, productive cough, 3L O2 per NC) Cardiovascular: Regular Rate, Normal S1, Normal S2, No Murmurs Abdominal: Normal Bowel Sounds, Soft, No Tenderness, No Hepatosplenomegaly, No Masses Extremities: No Clubbing, No Cyanosis, No Edema, Normal Pulses, No Tenderness/ Swelling Skin: No Rashes, No Significant Lesion Neuro: Normal Speech, Normal Tone, Sensation Intact, Cranial Nerves 3-12 NL Psych/Mental Status: Mental Status NL, Mood NL Hospital Course See final discharge diagnosis. Labs Laboratory Tests Test 04/15/17 21:10 04/16/17 04:52 04/16/17 05:12 04/16/17 11:06 Range/Units Glucometer 417 *H 155 H 172 H 70-110 MG/DL White Blood Count 15.5 H 4.3-11.0 10^3/uL Red Blood Count 3.58 L 4.35-5.85 10^6/uL Hemoglobin 10.7 L 11.5-16.0 G/DL Hematocrit 31 L 35-52 % Mean Corpuscular Volume 87 80-99 FL Mean Corpuscular Hemoglobin 30 25-34 PG Mean Corpuscular Hemoglobin Concent 34 32-36 G/DL Red Cell Distribution Width 14.0 10.0-14.5 % Platelet Count 240 130-400 10^3/uL Mean Platelet Volume 9.8 7.4-10.4 FL Neutrophils (%) (Auto) 73 42-75 % Lymphocytes (%) (Auto) 19 12-44 % Monocytes (%) (Auto) 8 0-12 % Eosinophils (%) (Auto) 0 0-10 % Basophils (%) (Auto) 1 0-10 % Neutrophils # (Auto) 11.2 H 1.8-7.8 X 10^3 Lymphocytes # (Auto) 2.9 1.0-4.0 X 10^3 Monocytes # (Auto) 1.2 H 0.0-1.0 X 10^3 Eosinophils # (Auto) 0.0 0.0-0.3 10^3/uL Basophils # (Auto) 0.2 H 0.0-0.1 10^3/uL Sodium Level 139 135-145 MMOL/L Potassium Level 3.8 3.6-5.0 MMOL/L Chloride Level 102 98-107 MMOL/L Carbon Dioxide Level 24 21-32 MMOL/L Anion Gap 13 5-14 MMOL/L Blood Urea Nitrogen 26 H 7-18 MG/DL Creatinine 0.87 0.60-1.30 MG/DL Estimat Glomerular Filtration Rate > 60 BUN/Creatinine Ratio 30 Glucose Level 166 H 70-105 MG/DL Calcium Level 9.1 8.5-10.1 MG/DL Magnesium Level 2.4 1.8-2.4 MG/DL Total Bilirubin 0.4 0.1-1.0 MG/DL Aspartate Amino Transf (AST/SGOT) 14 5-34 U/L Alanine Aminotransferase (ALT/SGPT) 21 0-55 U/L Alkaline Phosphatase 61 40-136 U/L Total Protein 6.6 6.4-8.2 GM/DL Albumin 3.8 3.2-4.5 GM/DL Radiology Reviewed Date of Exam: 04/10/17 CHEST 1 VIEW, AP/PA ONLY INDICATION: Cough. EXAMINATION: Erect AP chest at 3:44. FINDINGS: The heart size is within normal limits and stable when compared to 03/23/2017. The prior study did note right infrahilar atelectasis/infiltrate. On this exam there are a few crowded bronchovascular markings in the right infrahilar region but I am not certain that there is any pneumonia or atelectasis present in this area. The right upper lung and left lung are clear. The mediastinum is not widened. The osseous structures are intact. The orthopedic hardware overlying the cervicothoracic junction, seen previously, is again evident. IMPRESSION: 1. There are a few crowded bronchovascular markings in the right infrahilar region but there is no clear evidence for pneumonia or atelectasis in this area. 2. There is no acute cardiopulmonary abnormality noted otherwise. Date of Exam:04/11/17 CHEST PA/LAT (2 VIEW) INDICATION: Pneumonia. COMPARISON: 04/10/2017. FINDINGS: The right greater than left perihilar and infrahilar infiltrates have increased. No effusion or pneumothorax. IMPRESSION: The bilateral infiltrates in the mid to lower lungs, greater right, have progressed from the prior exam. Discussion & Recommendations see final discharge diagnosis Discharge Condition at discharge stable Instructions to patient/family Please see electronic discharge instructions given to patient. Discharge Medications Reviewed and agree with Discharge Medication list on patient's Discharge Instruction sheet Clinical Quality Measures DVT/VTE Risk/Contraindication: Risk Factor Score Per Nursin RFS Level Per Nursing on Admit: 2=Moderate Copy Copies To 1: [facility]/YANDEL ALEXANDER DO Apr 16, 2017 10:06
[2017-04-16] MEDS ORDERED: CEFD300C3 PO (10:15)
[2017-04-16] MEDS ORDERED: GUAI600T43 PO (10:15)
[2017-04-16] MEDS ORDERED: MONT10TA24 PO (10:15)
[2017-04-16] MEDS ORDERED: NYST1000 PO (10:15)
[2017-04-16] MEDS ORDERED: BENZ-36 PO (10:15)
[2017-04-16] MEDS ORDERED: MAGN296S50 PO (10:15)
[2017-04-16] MEDS ORDERED: PRD20T PO (10:26)
--- NOTE | 2017-04-16 10:26 | Discharge Instructions ---
Discharge [facility]-PSYCHIATRIC Discharge Medications New, Converted or Re-Newed RX: Transmitted to Pharmacy New Medications: Magnesium Citrate (Magnesium Citrate) 296 Ml Solution 296 ML PO DAILY PRN for CONSTIPATION-2ND LINE for 1 Day, #1 EA 0 Refills Prednisone (Prednisone) 20 Mg Tab 20 MG PO DAILY for 12 Days, #15 TAB 0 Refills 2 tablets daily x3 days 1.5 tablets daily x3 days 1 tablet daily x3 days 1/2 tablet daily x3 days Benzonatate (Benzonatate) 100 Mg Capsule 200 MG PO TID for 10 Days, #60 CAP Cefdinir (Cefdinir) 300 Mg Capsule 300 MG PO BID for 4 Days, #8 CAP Guaifenesin (Mucinex) 600 Mg Tab.er.12h 600 MG PO BID for 7 Days, #14 TAB Montelukast Sodium (Montelukast Sodium) 10 Mg Tablet 10 MG PO HS for 30 Days, #30 TAB 11 Refills Nystatin (Nystatin) 100,000 Unit/1 Ml Oral.susp 5 ML PO Q6HR for 7 Days, #210 ML Continued Medications: Albuterol Sulfate (Ventolin Hfa) 18 Gm Hfa.aer.ad 2 PUFF INH Q4H PRN for SHORTNESS OF BREATH, INHALER Amitriptyline HCl (Amitriptyline HCl) 25 Mg Tablet 25 MG PO HS, TAB Aripiprazole (Aripiprazole) 10 Mg Tablet 5 MG PO BID TAKES 1/2 OF A (10 MG) TABLET Aspirin (Aspir 81) 81 Mg Tablet.dr 81 MG PO DAILY, TAB Atorvastatin Calcium (Atorvastatin Calcium) 20 Mg Tablet 20 MG PO HS, TAB Buprenorphine (Butrans) 1 Each Patch.tdwk 1 PATCH TD We, EA Cetirizine HCl (Cetirizine HCl) 10 Mg Tablet 10 MG PO DAILY, TAB Cholecalciferol (Vitamin D3) (Vitamin D3) 1,000 Unit Capsule 1000 UNIT PO DAILY, CAP Cyclosporine (Restasis) 1 Each Droperette 1 DROP OU BID, EA Fenofibrate Nanocrystallized (Fenofibrate) 145 Mg Tablet 145 MG PO DAILY, TAB Gabapentin (Gabapentin) 600 Mg Tablet 600 MG PO 1200, TAB Gabapentin (Gabapentin) 600 Mg Tablet 1200 MG PO HS, TAB TAKES 2 (600MG) TABLETS Glimepiride (Glimepiride) 2 Mg Tablet 2 MG PO DAILY, TAB Hydrocodone/Acetaminophen (Hydrocodon-Acetaminophn 10-325) 1 Each Tablet 1 TAB PO QID PRN for PAIN-MODERATE, TAB Ipratropium/Albuterol Sulfate (Iprat-Albut 0.5-3(2.5) mg/3 ml) 3 Ml Ampul.neb 3 ML IH Q4H PRN for SHORTNESS OF BREATH, EACH Lidocaine (Lidocaine) 1 Each Adh..patch 1 PATCH TD DAILY, EA Lisinopril (Lisinopril) 5 Mg Tablet 5 MG PO DAILY, TAB Metformin HCl (Metformin HCl ER) 500 Mg Tab.er.24h 1000 MG PO 1730, TAB Metoprolol Succinate (Metoprolol Succinate) 25 Mg Tab.er.24h 25 MG PO DAILY, TAB Multivit-Min/Folic Acid/Vit K1 (Multi For Her 50 Plus Softgel) 1 Each Capsule 1 CAP PO DAILY, CAP [place]-3/Dha/Epa/Fish Oil (Fish Oil 1,000 mg Softgel) 1 Each Capsule 2000 MG PO BID, CAP TAKES 2 (1000MG) CAPSULES Pantoprazole Sodium (Pantoprazole Sodium) 40 Mg Tablet.dr 40 MG PO BID, TAB Sertraline HCl (Sertraline HCl) 100 Mg Tablet 200 MG PO HS, TAB TAKES 2 (100MG) TABLETS Patient Instructions Patient Instructions -take medications as directed -continue oxygen at 3L until follow up in office -keep follow up appointments as scheduled Goal/Follow Up Appt: Mariah Casillas APRN 04/22/2017 at 2 PM Return to The Hospital For: worsening shortness of breath not relieved by home medications and oxygen, chest pain or pressure, nausea or vomiting that makes you unable to keep down medication, as directed by crown ironer operator provider, or any emergent complaints or concerns Activity & Diet Discharge Diet: ADA Diet, Cardiac Diet Activity as Tolerated: Yes YANDEL VERONICA DO Apr 16, 2017 10:20
[2017-04-16] MEDS: predniSONE 10 MG TAB PO SCH (11:09)
[2017-04-16] MEDS ORDERED: MONTELUKAST 10 MG (SINGULAIR) TAB PO SCH (21:00)
== END 2017-04-16 11:45 | disposition home or self-care (01) | DRG 189 ==
LOC: EDUNIT# 13:02 → ER 13:04 → UNDOADMOB 17:37 → 4TH 17:37 → OBSVTOIN 04-14 14:40
PROVIDERS: ADMIT Family Medicine; ATTEND Family Medicine
DX: J96.21 Acute and chronic respiratory failure with hypoxia (principal); J18.9 Pneumonia, unspecified organism; J44.1 Chronic obstructive pulmonary disease with (acute) exacerbation; N17.9 Acute kidney failure, unspecified; E87.1 Hypo-osmolality and hyponatremia; J44.0 Chronic obstructive pulmonary disease with (acute) lower respiratory infection; G47.33 Obstructive sleep apnea (adult) (pediatric); I25.10 Atherosclerotic heart disease of native coronary artery without angina pectoris; E78.00 Pure hypercholesterolemia, unspecified; E78.5 Hyperlipidemia, unspecified; I10 Essential (primary) hypertension; D64.9 Anemia, unspecified; E11.65 Type 2 diabetes mellitus with hyperglycemia; T49.0X5A Adverse effect of local antifungal, anti-infective and anti-inflammatory drugs, initial encounter; E66.9 Obesity, unspecified; E11.42 Type 2 diabetes mellitus with diabetic polyneuropathy; E87.6 Hypokalemia; K21.9 Gastro-esophageal reflux disease without esophagitis; K58.9 Irritable bowel syndrome, unspecified; M19.91 Primary osteoarthritis, unspecified site; M79.7 Fibromyalgia; M06.9 Rheumatoid arthritis, unspecified; F41.9 Anxiety disorder, unspecified; F32.9 Major depressive disorder, single episode, unspecified; Z87.891 Personal history of nicotine dependence; Z99.81 Dependence on supplemental oxygen; Z95.5 Presence of coronary angioplasty implant and graft; Z79.84 Long term (current) use of oral hypoglycemic drugs; Z68.31 Body mass index [BMI] 31.0-31.9, adult
CPT/HCPCS: 36415; 71045; 71046; 80048; 80053; 81000; 82805; 82962; 83605; 83735; 83880; 85007; 85025; 85027; 87040; 87088; 87804; 94640; 94664; 94760; 96365; 96375; 99284; G0378

== ENCOUNTER → 2017-04-25 | Outpatient (CLI) | payer MEDICARE, MEDICAID ==
[~2017-04-25] MED LIST changes: +GUAI600T43 PO; +LIDO700A45 TD; +MAGN296S50 PO
--- NOTE | 2017-04-25 14:35 | Diagnostic Imaging Report ---
Indication: Routine screening. Comparison is made with prior study from 02/27/2016 and 01/18/2015. The current study was also evaluated with a Computer Aided Detection (CAD) system. Both breast demonstrate a moderate parenchymal heterogeneity and increased density, limiting the sensitivity of mammography. No dominant mass or malignant appearing microcalcifications are seen. There are benign calcifications bilaterally. The axillae are unremarkable. IMPRESSION: BI-RADS category 2 No mammographic features suspicious for malignancy are identified. ACR BI-RADS Category 2: Benign findings. Result letter will be mailed to the patient. Note: At least 10% of breast cancer is not imaged by mammography. Dictated by: Dictated on workstation # [id number]
== END ==
LOC: RAD 13:44
PROVIDERS: ATTEND Nurse Practitioner Family
DX: Z12.31 Encounter for screening mammogram for malignant neoplasm of breast (principal)
CPT/HCPCS: 77067

== ENCOUNTER → 2017-06-16 | Outpatient (CLI) | payer MEDICARE, MEDICAID ==
--- NOTE | 2017-06-16 10:59 | Diagnostic Imaging Report ---
Clinical indication: Evaluate COPD changes. Patient has no chest complaints. Exam: Chest x-ray PA and lateral views. Comparisons: Chest x-ray dated 04/13/2017. Findings: Lungs/pleura: There is improved aeration of the left lung base. Lungs are now clear. There is no pneumothorax. There is no pleural effusion. Mediastinum: Unremarkable. Pulmonary vasculature: Unremarkable. Heart: Unremarkable. Bones/extrathoracic soft tissue: There are hypertrophic spurs seen throughout the spine. Again seen lower cervical anterior disc fusion hardware. Impression: 1: There is no radiographic evidence of acute cardiopulmonary process. There is interval resolution of the previously seen left lung base infiltrate. Dictated by: Dictated on workstation # [id number]
== END ==
LOC: RAD 10:34
PROVIDERS: ATTEND Nurse Practitioner Family
DX: J44.9 Chronic obstructive pulmonary disease, unspecified (principal); Z98.1 Arthrodesis status
CPT/HCPCS: 71046

== ENCOUNTER → 2017-06-18 | Outpatient (CLI) | payer MEDICARE, MEDICAID ==
[~2017-06-18] MED LIST changes: +RT-ALBUTEROL SULF 2.5 MG/3 ML PRE-MIX VIAL INH ONE
== END ==
LOC: RT 12:34
PROVIDERS: ATTEND Nurse Practitioner Family
DX: J45.909 Unspecified asthma, uncomplicated (principal); J44.9 Chronic obstructive pulmonary disease, unspecified; R06.02 Shortness of breath; R09.02 Hypoxemia
CPT/HCPCS: 94060; 94726; 94729

== ENCOUNTER 2017-07-21 13:54 | Outpatient (RCR) | payer MEDICARE, MEDICAID ==
[~2017-07-21] VITALS: Ht 170.2 cm; Wt 104.3 kg
[~2017-07-21 13:54] MED LIST changes: -FENO145T20 PO; +FENO145T37 PO; +FURO40TA4 PO; -IPRA3AMP IH; +IPRA3AMP31 IH; -METF500T4 PO; +METF500T5 PO; +POTA10TA10 PO; -RT-ALBUTEROL SULF 2.5 MG/3 ML PRE-MIX VIAL INH ONE
[2017-07-21 14:16] VITALS: BP 115/60
[2017-08-06] MEDS ORDERED: HYDR-3816 PO (11:08)
== END 2017-10-19 | disposition home or self-care (01) ==
LOC: PULM 13:54
PROVIDERS: ATTEND Nurse Practitioner Family
DX: J44.9 Chronic obstructive pulmonary disease, unspecified (principal); R09.02 Hypoxemia

== ENCOUNTER 2017-08-05 05:41 | Outpatient (CLI) | payer MEDICARE, MEDICAID ==
[~2017-08-05] VITALS: Ht 170.2 cm; Wt 104.3 kg
[~2017-08-05 05:41] MED LIST changes: +IPRA3AMP IH; -IPRA3AMP31 IH
[2017-08-06] MEDS ORDERED: HYDR-3816 PO (11:08)
== END 2017-08-05 08:55 ==
LOC: PREOP 05:41
PROVIDERS: ATTEND Orthopaedic Surgery
DX: Z01.818 Encounter for other preprocedural examination (principal)

== ENCOUNTER 2017-08-06 07:55 | Day surgery (SDC) | payer MEDICARE, MEDICAID ==
--- NOTE | 2017-08-01 05:59 | HISTORY AND PHYSICAL ---
DATE OF SERVICE: OUTPATIENT SURGERY ON: 08/06/2017 CHIEF COMPLAINT: Left carpal tunnel release. HISTORY OF PRESENT ILLNESS: The patient is a 67-year-old right hand dominant female with complaints of left hand pain and paresthesias. She underwent an EMG nerve conduction study, which revealed evidence of left carpal tunnel syndrome. She reports difficulty with fine motor skills. She reports that she drops things. She reports of burning in her hand. She reports no relief with activity modifications or with splinting. Due to functional impairment and failure to improve with conservative measures, the patient elected to proceed with surgical intervention. REVIEW OF SYSTEMS: No chest pain, no shortness of breath, no dysuria. PAST MEDICAL HISTORY: Asthma, colon polyps, COPD, coronary artery disease, depression, diabetes, hypertension, cervical stenosis, fibromyalgia, chronic pain, peripheral neuropathy, chronic respiratory failure and back pain. PAST SURGICAL HISTORY: Appendectomy, cervical spine, cholecystectomy, hysterectomy, rotator cuff repair, tracheotomy and cardiac catheterization. PRIMARY CARE PROVIDER: [facility]. MEDICATIONS: 1. Centrum. 2. Fish oil. 3. Lipitor. 4. Spiriva. 5. Flonase inhaler. 6. Singulair. 7. Zyrtec. 8. Advair. 9. Metoprolol. 10. Aspirin. 11. Omeprazole. 12. Zoloft. 13. Lorazepam. 14. Gabapentin. 15. Glimepiride. 16. Metformin. 17. Tricor. 18. Amitriptyline. 19. Hydrocodone. ALLERGIES: No known drug allergies. SOCIAL HISTORY: The patient is a former smoker. Denies alcohol use. PHYSICAL EXAMINATION: GENERAL: The patient is well developed, well-nourished in no acute distress. HEENT: Normocephalic, atraumatic. Pupils are equal, round, reactive to light. Oropharynx is clear. NECK: Supple, with no lymphadenopathy. LUNGS: Clear to auscultation bilaterally. HEART: Regular rate and rhythm. ABDOMEN: Soft, nontender, nondistended. EXTREMITIES: The left hand demonstrates positive Tinel's at the carpal tunnel with positive Phalen's maneuver. She has decreased sensation in the median distribution. She has 5/5 thumb palmar abduction strength. Negative Tinel's at the cubital tunnel. IMPRESSION: Left carpal tunnel syndrome. PLAN: Left carpal tunnel release. The risks, benefits, options, ramifications, and recovery were discussed at length with the patient. She understands and wishes to proceed. Job ID: [id number] DocumentID: [id number] Dictated Date: 07/30/2017 17:13:47 Riprap Man Date: 07/30/2017 18:56:41 Dictated By: LEONELA ALEMNA MD
[~2017-08-06] VITALS: Ht 170.2 cm; Wt 104.3 kg
[2017-08-06] MEDS ORDERED: PROPOFOL INJECTION 50 ML IV ONE (08:43)
[2017-08-06] MEDS ORDERED: MIDAZOLAM 2 MG/2 ML (VERSED) VIAL ONE (08:43)
[2017-08-06] MEDS ORDERED: CLINDAMYCIN 600 MG/50 ML IVPB 50 ML IV ONE ×2 (08:45→09:00)
[2017-08-06] MEDS ORDERED: LACTATED RINGERS 1,000 ML IV PRN (08:46)
[2017-08-06] MEDS ORDERED: FAMOTIDINE 20MG/2ML IV (PEPCID) ONE (08:47)
[2017-08-06] MEDS ORDERED: FAMOTIDINE 20MG/2ML IV (PEPCID) IV ONE (09:00)
[2017-08-06] MEDS ORDERED: BUPIVACAINE 0.5% 30 ML (SENSORCAINE) VIAL ONE (09:00)
[2017-08-06] MEDS ORDERED: LIDOCAINE 1% INJ 20 ML 20 ML VIAL ONE (09:00)
--- NOTE | 2017-08-06 09:16 | Progress Note-Pre Operative ---
Pre-Operative Progress Note H&P Reviewed The H&P was reviewed, patient examined and no changes noted. Date Seen by Provider: August 06, 2017 Time Seen by Provider: 09:15 Date H&P Reviewed: August 06, 2017 Time H&P Reviewed: 09:15 Pre-Operative Diagnosis: left carpal tunnel syndrome LEONELA ALEMAN MD August 06, 2017 09:16
--- NOTE | 2017-08-06 09:19 | Progress Note-Post Operative ---
Post-Operative Progess Note Surgeon (s)/Director Of Nursing (s) Surgeon LEONELA ALEMAN MD Director Of Nursing: Toy Rodrigues Pre-Operative Diagnosis left carpal tunnel syndrome Post-Operative Diagnosis left carpal tunnel syndrome Procedure & Operative Findings Date of Procedure 08/06/17 Procedure Performed/Findings left carpal tunnel release Anesthesia Type MAC plus local Estimated Blood Loss Estimated blood loss (mL): minimal Specimens/Packing Specimens Removed none Packing: none LEONELA ALEMAN MD August 06, 2017 09:19
[2017-08-06 09:30] VITALS: BP 146/79
[2017-08-06] MEDS ORDERED: HYDROcodone/APAP 7.5 MG/325 MG (LORTAB, LORCET PLUS) TABLET PO PRN (09:30)
[2017-08-06] MEDS ORDERED: MEPERIDINE (DEMEROL) INJ 50 MG/ML IVP PRN (10:15)
[2017-08-06] MEDS ORDERED: morphine INJ 10 MG/ML 1ML (SYR OR VIAL) IVP PRN (10:15)
[2017-08-06] MEDS ORDERED: ONDANSETRON 4 MG/2 ML (SDV) Z0FRAN IVP PRN (10:15)
[2017-08-06 10:45] VITALS: BP 128/81
[2017-08-06] MEDS ORDERED: HYDR-3816 PO (11:08)
[2017-08-06 11:15] VITALS: BP 132/65
[2017-08-06 11:45] VITALS: BP 137/74
[2017-08-06 11:47] VITALS: BP 137/74
--- NOTE | 2017-08-06 13:45 | Anesthesia-General Post-Op ---
MAC Patient Condition Mental Status/LOC: Same as Preop Cardiovascular: Satisfactory Nausea/Vomiting: Absent Respiratory: Satisfactory Pain: Controlled Complications: Absent Post Op Complications Complications None Follow Up Care/Instructions Patient Instructions None needed. Anesthesiology Discharge Order Discharge Order Patient is doing well, no complaints, stable vital signs, no apparent adverse anesthesia problems. No complications reported per nursing. MARISA HUTCHINSON CRNA August 06, 2017 13:45
--- NOTE | 2017-08-06 19:48 | OPERATIVE REPORT ---
DATE OF SERVICE: 08/06/2017 PREOPERATIVE DIAGNOSIS: Left carpal tunnel syndrome. POSTOPERATIVE DIAGNOSIS: Left carpal tunnel syndrome. PROCEDURE: Left carpal tunnel release. SURGEON: Tyler Aleman MD BELLMAN CAPTAIN: Toy Rodrigues, who assisted her throughout the procedure and closed the incision. ANESTHESIA: Monitored anesthesia care plus local by Manjinder BLOSSOM. Tourniquet time is three minutes at 250 mmHg. ESTIMATED BLOOD LOSS: Minimal. DRAINS: None. COMPLICATIONS: None. POSTOPERATIVE PLAN: Routine protocol. STATEMENT OF MEDICAL NECESSITY: The patient is a 67-year-old right hand dominant female with complaints of left hand pain and paresthesia. She had positive Tinel's and carpal tunnel with positive Phalen's maneuver. She complained of night pain, pain with repetitive activities. She has tried rest, activity modification, splinting without relief and due to functional impairment and failure to improve with conservative measures, the patient elected to proceed with surgical intervention. DESCRIPTION OF PROCEDURE: After risks and benefits of procedure were discussed and questions were answered, an informed consent was signed and placed on the chart. The operative site was confirmed in the preoperative holding area initialed by the surgeon. The patient was transferred to the operating room and after adequate levels of monitored anesthesia care was obtained, a timeout was called confirming the operative site. Under sterile conditions, the incision site was infiltrated with a combination of plain lidocaine and plain Marcaine. The left upper extremity was then prepped and draped in the usual sterile fashion with the arm elevated, tourniquet was inflated to 250 mmHg. A standard incision was made in line with the radial border of the ring finger overlying the transverse carpal ligament. This was sharply dissected exposing the transverse carpal ligament, which was then incised. By pushing through with the scalpel blade the median nerve was identified and carefully protected throughout the procedure and intact at the conclusion of the procedure distally. This was confirmed fully with release of the freer. Proximally, transverse carpal ligament were spread above and below with dissection scissors and then opened with a slightly open scissor edges while carefully protecting the median nerve. This was confirmed fully freed with a freer. The tourniquet was deflated for a total tourniquet time of three minutes. Pressure was used for hemostasis. The wound was copiously irrigated and then closed with 4-0 nylon in running alternating horizontal mattress fashion. A soft dressing and brace were applied and the patient was transported to the recovery room in awake and stable condition. Job ID: [id number] DocumentID: [id number] Dictated Date: 08/06/2017 10:04:53 Software Administrator Date: 08/06/2017 19:47:46 Dictated By: TYLER ALEMAN MD
== END 2017-08-06 11:47 | disposition home or self-care (01) ==
LOC: SDC 07:55
PROVIDERS: ATTEND Orthopaedic Surgery
DX: G56.01 Carpal tunnel syndrome, right upper limb (principal); Z11.2 Encounter for screening for other bacterial diseases; E11.42 Type 2 diabetes mellitus with diabetic polyneuropathy; I10 Essential (primary) hypertension; M79.7 Fibromyalgia; J44.9 Chronic obstructive pulmonary disease, unspecified; Z79.84 Long term (current) use of oral hypoglycemic drugs; Z79.82 Long term (current) use of aspirin; Z79.899 Other long term (current) drug therapy; Z95.5 Presence of coronary angioplasty implant and graft; I25.10 Atherosclerotic heart disease of native coronary artery without angina pectoris; F32.9 Major depressive disorder, single episode, unspecified; K21.9 Gastro-esophageal reflux disease without esophagitis; Z87.891 Personal history of nicotine dependence; Z86.010 Personal history of colon polyps
CPT/HCPCS: 82962; 87081

== ENCOUNTER → 2017-08-25 | Outpatient (CLI) | payer MEDICARE, MEDICAID ==
--- NOTE | 2017-08-25 14:15 | Diagnostic Imaging Report ---
INDICATION: Restrictive lung disease. COMPARISON: 06/16/2017 FINDINGS: 2 views of the chest are obtained. Heart size is normal. The pulmonary vessels appear unremarkable. The lungs are clear. The osseous structures appear unremarkable. IMPRESSION: No acute abnormality is demonstrated. No interval change from the prior study. Dictated by: Dictated on workstation # [id number]
== END ==
LOC: RAD 13:06
PROVIDERS: ATTEND Nurse Practitioner Family
DX: J98.4 Other disorders of lung (principal); J06.9 Acute upper respiratory infection, unspecified; J30.9 Allergic rhinitis, unspecified
CPT/HCPCS: 71046

== ENCOUNTER 2018-04-14 08:46 | Day surgery (SDC) | payer MEDICARE, MEDICAID ==
[~2018-04-14] VITALS: Ht 171.4 cm; Wt 107.0 kg
[2018-04-14] VITALS (13 sets, daily range): BP systolic 95–183; BP diastolic 64–87
[~2018-04-14 08:46] MED LIST changes: -GABA600T2 PO; +GBPN600T PO; +HYDR-4226 PO; -HYDR-757 PO; -IPRA3AMP IH; +IPRA3AMP31 IH; +IPRA3AMP31 NEB; +METF-397 PO; -METF500T5 PO
[2018-04-14] MEDS ORDERED: NS IV 1000 ML 1,000 ML ONE (09:03)
[2018-04-14] MEDS ORDERED: HEParin (CATH LAB) 2,000 ML IV ONE (09:03)
[2018-04-14] MEDS ORDERED: LIDOCAINE 1% INJ 20 ML 20 ML VIAL ONE (09:03)
[2018-04-14 09:33] LABS: HEMOGLOBIN 12.6 G/DL (11.5-16.0); MEAN PLATELET VOLUME 10.2 FL (7.4-10.4); RED BLOOD COUNT 4.28 10^6/uL (4.35-5.85); RED CELL DISTRIBUTION WIDTH 14.2 % (10.0-14.5); WHITE BLOOD COUNT 5.2 10^3/uL (4.3-11.0)
[2018-04-14] MEDS: NS IV 1000 ML 1,000 ML IV SCH (09:40)
[2018-04-14 09:48] LABS: INR 0.9 (0.8-1.4); PROTHROMBIN TIME PATIENT 11.7 SEC (12.2-14.7)
[2018-04-14 09:52] LABS: ALBUMIN 4.3 GM/DL (3.2-4.5); BILIRUBIN,TOTAL 0.5 MG/DL (0.1-1.0); CALCIUM 9.7 MG/DL (8.5-10.1); CREATININE SERUM 0.96 MG/DL (0.60-1.30); POTASSIUM 4.1 MMOL/L (3.6-5.0); TOTAL PROTEIN 6.2 GM/DL (6.4-8.2)
[2018-04-14] MEDS ORDERED: MIDAZOLAM 5 MG/5 ML (VERSED) VIAL ONE (10:03)
[2018-04-14] MEDS ORDERED: fentaNYL INJECTION 100 MCG/2 ML AMP ONE (10:03)
[2018-04-14] MEDS ORDERED: ATOR40TA70 PO (10:09)
[2018-04-14] MEDS ORDERED: AMIT50TA3 PO (10:09)
[2018-04-14] MEDS ORDERED: INSU100I32 SQ (10:09)
[2018-04-14] MEDS ORDERED: HYDR-3820 PO (10:09)
[2018-04-14] MEDS ORDERED: FLUT16SP22 NS (10:09)
[2018-04-14] MEDS ORDERED: MULT-1029 PO (10:09)
[2018-04-14] MEDS ORDERED: PREG75CA PO (10:09)
--- NOTE | 2018-04-14 10:11 | NUR ---
PATIENT HAD HER MEDICATION BOTTLES WITH HER. WE WENT OVER EACH BOTTLE AND THE LIST FROM THE OFFICE. SHE VERIFIED HOW SHE TAKES THEM.
--- NOTE | 2018-04-14 10:27 | Cardiac Procedure Note-CS/ASA ---
Pre-Procedure Note Pre-Op Procedure Note H&P Reviewed The H&P was reviewed, patient examined and no changes noted. Date H&P Reviewed: Apr 14, 2018 Time H&P Reviewed: 10:27 Conscious Sedation Pre-Proced Time 10:27 ASA Score 3 For ASA 3 and 4: Consider anesthesia and medical clearance. Also, for patients with a history of failed moderate sedation consider anesthesia. Airway Lungs Heart ASA score ASA 1: a normal healthy patient ASA 2: a patient with a mild systemic disease (mid diabetes, controlled hypertension, obesity ASA 3: a patient with a severe systemic disease that limits activity (angina , COPD, prior Myocardial infarction) ASA 4: a patient with an incapacitating disease that is a constant threat to life (CHF, renal failure) ASA 5: a moribund patient not expected to survive 24 hrs. (ruptured aneurysm) ASA 6: a declared brain patient whose organs are being harvested. For emergent operations, add the letter E after the classification Mallampati Classification Grade 3 Sedation Plan Analgesia, Amnesia, Plan communicated to team members, Discussed options with patient/fam, Discussed risks with patient/fam The patient is an appropriate candidate to undergo the planned procedure, sedation, and anesthesia. The patient immediately re-assessed prior to indication. DIONTE ALMONTE MD FACP FAC CCDS Apr 14, 2018 10:27
[2018-04-14] MEDS ORDERED: ADENOSINE 3 MG/1 ML (ADENOSCAN) 30ML VIAL IV ONE (10:48)
[2018-04-14] MEDS ORDERED: HEParin 1000 UNIT/ML (10ML VIAL) FOR BOLUS ONE (10:48)
--- NOTE | 2018-04-14 11:00 | NUR ---
Pastoral Care Visit.
[2018-04-14] MEDS ORDERED: NITRO DRIP 25000 MCG/D5W 250 ML IV ONE (11:10)
[2018-04-14] MEDS ORDERED: ASPIRIN 81 MG CHEW (CHILDREN'S ASA) ONE (11:27)
[2018-04-14] MEDS ORDERED: CLOPIDOGREL 300 MG (PLAVIX) TABLET PO ONE (11:27)
[2018-04-14] MEDS ORDERED: NS IV 1000 ML 1,000 ML IV SCH (11:51)
[2018-04-14] MEDS ORDERED: PATIENT MAY USE OWN MEDS, ALL PO SCH (12:00)
[2018-04-14] MEDS ORDERED: RT-ALBUTEROL/IPRATROPIUM 3 ML (DUONEB) VIAL IH PRN (12:00)
[2018-04-14] MEDS ORDERED: NON-FORMULARY MEDICATION 1 EA EA (Cyclosporine (Restasis) 1 DROP) OU PRN (12:00)
[2018-04-14] MEDS ORDERED: RT-ALBUTEROL SULF 2.5 MG/3 ML PRE-MIX VIAL INH PRN (12:00)
[2018-04-14] MEDS ORDERED: HYDROcodone/APAP 10 MG/325 MG (LORTAB) TAB PO PRN ×2 (12:00→14:00)
--- NOTE | 2018-04-14 12:08 | CARDIAC CATHETERIZATION ---
DATE OF SERVICE: 04/14/2018 CARDIAC CATHETERIZATION AND CORONARY INTERVENTION REPORT INDICATION: The patient is a 67-year-old lady, who is known to have coronary artery disease and who has previously had stenting of the mid left anterior descending and the proximal right coronary arteries. She has lately had symptoms of recurrent angina. Cardiac catheterization was carried out today after having obtained informed consent for cardiac catheterization and possible ad hoc coronary intervention. PROCEDURE IN DETAIL: She was brought to the cardiac catheterization laboratory in a fasting state. Right groin was prepared and draped in the usual sterile fashion. Lidocaine 1% was used for local anesthesia. Modified Seldinger technique was used to advance a 5-American sheath in the right femoral artery, 5-American JL4 catheter was used for left coronary angiography, 5-American JR4 catheter for right coronary angiography, 5-American pigtail catheter was used for left heart catheterization and left ventricular angiography. FRACTIONAL FLOW RESERVE MEASUREMENT IN THE MID LEFT ANTERIOR DESCENDING ARTERY: Following completion of the diagnostic procedure, we exchanged the sheath over a wire for a 6-American sheath. We gave 7000 units of intravenous heparin. We advanced a Pressure Wire X across the lesion in the mid left anterior descending artery, which appeared to be 40 to 50% and was just past distal edge of the mid left anterior descending artery stent. We gave adenosine 140 mcg per kilogram per minute for 2 minutes and 45 seconds. Fractional flow reserve measured at 87, indicating that the lesion was hemodynamically insignificant. PERCUTANEOUS INTERVENTION TO THE FIRST DIAGONAL BRANCH OF THE LEFT ANTERIOR DESCENDING ARTERY: The first diagonal branch of the left anterior descending artery is jailed by the mid left anterior descending artery stent. This is a chronic situation. However, given that there appeared to be considerable disease in the ostial portion of this diagonal branch, we wired the lesion with a Pressure Wire X and the tip of the wire was placed in the distal vessel. It was difficult to advance any balloon across the lesion. However, with considerable difficulty, we were able to finally advance an Emerge 1.5 x 15 mm balloon across the ostial lesion and balloon inflations were carried out to 14 atmospheres. This balloon was removed and we then advanced an Emerge 2.0 x 20 mm balloon and multiple balloon inflations were carried out to 14 atmospheres. Subsequent angiography revealed improvement of stenosis from 90% to 50 to 60% residual. Flow throughout the vessel is normal. The angioplasty equipment was removed. Angiography of the right femoral artery was carried out through the sheath. Mynx was used to achieve hemostasis. She tolerated the procedure well. HEMODYNAMICS: Left ventricular end-diastolic pressure following coronary angiography was 7 mmHg. There was no significant pressure gradient on pullback across the aortic valve. Ascending aortic pressure was 123/59 with a mean of 92 mmHg. CORONARY ANGIOGRAPHY: Left main coronary artery is free of significant disease. Left anterior descending artery has a widely patent stent in its mid portion that is known to be Promus Premier 3.0 x 24 mm stent that was placed in 2013. I passed the stent, there is 40 to 50% stenosis that is hemodynamically insignificant (fractional flow reserve 0.87). The first diagonal branch of the left anterior descending artery is jailed by the stent. This was exhibiting 90% stenosis and balloon angioplasty was carried out through this lesion today resulting in improvement of stenosis to 50 to 60%. The left circumflex artery has mild plaques. Right coronary artery is dominant and has a widely patent stent in its proximal portion that is known to be Promus Premier 3.0 x 12 mm stent that was postdilated with a 3.5 mm balloon in 2013. LEFT VENTRICULAR ANGIOGRAPHY: Left ventricular angiography was carried out in the right anterior oblique projection. Global left ventricular systolic function is normal. No regional wall motion abnormalities were seen. Left ventricular ejection fraction is 60 to 65%. CONCLUSIONS: 1. Coronary artery disease primarily consisting of 90% ostial stenosis of a jailed first diagonal branch to which balloon angioplasty was carried out with reduction of stenosis to 50 to 60%. There are widely patent stents in the mid left anterior descending (Promus Premier 3.0 x 24 mm placed in 2013) and in proximal right coronary (Promus Premier 3.0 x 12 mm placed in 2013). The mid left anterior descending artery has 40 to 50% stenosis, which is hemodynamically insignificant (fractional flow reserve 0.87). 2. Normal left ventricular end-diastolic pressure. 3. Normal global left ventricular systolic function with ejection fraction of approximately 60%. DISCUSSION AND RECOMMENDATIONS: She is being hospitalized for overnight observation. Current cardiac regimen is being continued to which Plavix 75 mg a day has been added. Job ID: [id number] DocumentID: [id number] Dictated Date: 04/14/2018 11:48:32 Irrigation Service Technician Date: 04/14/2018 12:07:31 Dictated By: DIONTE ALMONTE MD, MA, FACP, FACC, MTDD
[2018-04-14] MEDS ORDERED: PREGABALIN 75 MG (LYRICA) CAP PO SCH (13:00)
[2018-04-14] MEDS ORDERED: ARTIFICAL TEARS 0.4 ML UNIT DOSE (REFRESH PLUS) OU PRN (13:45)
[2018-04-14] MEDS ORDERED: GLIMEPIRIDE 2 MG (AMARYL) TAB PO SCH (17:00)
[2018-04-14] MEDS ORDERED: OMEGA 3 (FISH OIL) 1000 MG CAP PO SCH (17:00)
[2018-04-14] MEDS: OMEGA 3 (FISH OIL) 1000 MG CAP PO SCH (17:49)
[2018-04-14] MEDS: PREGABALIN 75 MG (LYRICA) CAP PO SCH ×2 (17:49→21:22)
[2018-04-14] MEDS: GLIMEPIRIDE 2 MG (AMARYL) TAB PO SCH (17:53)
[2018-04-14] MEDS: RT-ADVAIR HFA 115/21 MCG PER PUFF IH SCH (20:07)
[2018-04-14] MEDS ORDERED: NON-FORMULARY MEDICATION 1 EA EA (Fluticasone/Salmeterol (Advair 250-50 Diskus) 1 PUFF) IH SCH (21:00)
[2018-04-14] MEDS ORDERED: PANTOPRAZOLE 40 MG (PROTONIX) TAB PO SCH (21:00)
[2018-04-14] MEDS ORDERED: ATORVASTATIN 40 MG (LIPITOR) TABLET PO SCH ×2 (21:00)
[2018-04-14] MEDS ORDERED: AMITRIPTYLINE 50 MG (ELAVIL) TAB PO SCH ×2 (21:00)
[2018-04-14] MEDS ORDERED: NON-FORMULARY MEDICATION 1 EA EA (Omega-3/Dha/Epa/Fish Oil (Fish Oil 1,000 mg Softgel) 2,0 PO SCH (21:00)
[2018-04-14] MEDS ORDERED: MONTELUKAST 10 MG (SINGULAIR) TAB PO SCH ×2 (21:00)
[2018-04-14] MEDS: PANTOPRAZOLE 40 MG (PROTONIX) TAB PO SCH (21:23)
[2018-04-15] VITALS: BP 151/79
[2018-04-15] MEDS: RT-ALBUTEROL/IPRATROPIUM 3 ML (DUONEB) VIAL IH PRN ×2 (00:20→06:47)
[2018-04-15 03:59] LABS: HEMOGLOBIN 11.3 G/DL (11.5-16.0); MEAN PLATELET VOLUME 10.7 FL (7.4-10.4); RED BLOOD COUNT 3.89 10^6/uL (4.35-5.85); RED CELL DISTRIBUTION WIDTH 14.1 % (10.0-14.5); WHITE BLOOD COUNT 4.8 10^3/uL (4.3-11.0)
[2018-04-15 04:00] VITALS: BP 178/83
[2018-04-15 04:28] LABS: BUN/CREATININE RATIO 13; CALCIUM 9.4 MG/DL (8.5-10.1); CARBON DIOXIDE 24 MMOL/L (21-32); CHLORIDE 105 MMOL/L (98-107); CREATININE SERUM 0.87 MG/DL (0.60-1.30); GFR ESTIMATED > 60; GLUCOSE 136 MG/DL (70-105); POTASSIUM 3.7 MMOL/L (3.6-5.0); SODIUM 142 MMOL/L (135-145)
[2018-04-15] MEDS: OMEGA 3 (FISH OIL) 1000 MG CAP PO SCH (06:20)
[2018-04-15] MEDS: PANTOPRAZOLE 40 MG (PROTONIX) TAB PO SCH (06:20)
[2018-04-15] MEDS: GLIMEPIRIDE 2 MG (AMARYL) TAB PO SCH (06:21)
[2018-04-15] MEDS: RT-ADVAIR HFA 115/21 MCG PER PUFF IH SCH (06:48)
[2018-04-15] MEDS ORDERED: MULTIVIT W/MINERALS TAB (THERAGRAN M) PO SCH ×2 (07:00)
--- NOTE | 2018-04-15 07:57 | Progress Note-Cardiology ---
Cardiology SOAP Progress Note Subjective: Sitting up in bed. Wants to go home. Chronic dyspnea with occ cough, unchanged today. No c/o CP, palpitations. No c/o right groin pain. Wants to go home. Objective: I&O/Vital Signs 04/15/18 04/15/18 04/15/18 04/15/18 00:00 00:20 01:00 03:25 Temp 96.9 Pulse 71 75 Resp 18 B/P (MAP) 151/79 (103) Pulse Ox 98 95 97 O2 Delivery Nasal Cannula Nasal Cannula Nasal Cannula O2 Flow Rate 3.00 3.00 3.00 04/15/18 04/15/18 04/15/18 04/15/18 04:00 06:49 07:00 08:00 Temp 97.8 97.0 Pulse 79 83 83 Resp 21 20 B/P (MAP) 178/83 (114) 131/85 (100) Pulse Ox 97 98 95 O2 Delivery Nasal Cannula Nasal Cannula Nasal Cannula O2 Flow Rate 3.00 3.00 3.00 04/15/18 08:15 Pulse Ox 95 O2 Delivery Nasal Cannula O2 Flow Rate 3.00 Weight (Pounds): 236 Weight (Ounces): 0.0 Weight (Calculated Kilograms): 107.874839 Side: right Groin site without hematoma: Yes Condition: DP/PT pulses palpable, extremity w/d/p Bruising: mild bruising Constitutional: AAO x 3 Respiratory: chest expansion is symmetric, chest is bilaterally symmetric, rhonchi (scattered), other (coarse lung sounds over large airways; prolonged expiratory phase) Cardiovascular: regular rate-rhythm; No JVD; S1 and S2, systolic murmur Gastrointestional: soft, round, audible bowel sounds Extremities: no lower extremity edema bilateral Neurologic/Psychiatric: grossly intact Skin: No rash, No ulcerations Results/Procedures: Labs Laboratory Tests 04/15/18 03:15: White Blood Count 4.8, Red Blood Count 3.89L, Hemoglobin 11.3L, Hematocrit 34L, Mean Corpuscular Volume 87, Mean Corpuscular Hemoglobin 29, Mean Corpuscular Hemoglobin Concent 34, Red Cell Distribution Width 14.1, Platelet Count 150, Mean Platelet Volume 10.7H, Sodium Level 142, Potassium Level 3.7, Chloride Level 105, Carbon Dioxide Level 24, Anion Gap 13, Blood Urea Nitrogen 11, Creatinine 0.87, Estimat Glomerular Filtration Rate > 60, BUN/Creatinine Ratio 13, Glucose Level 136H, Calcium Level 9.4 Procedures S/P cardiac cath with successful intervention. Please refer to Dr. Manuel's cardiac cath report for details. A/P: Assessment: Coronary artery disease. Last cath of 04/14/18 showed of 90% ostial stenosis of a jailed first diagonal branch to which balloon angioplasty was carried out with reduction of stenosis to 50 to 60%. There are widely patent stents in the mid left anterior descending (Promus Premier 3.0 x 24 mm placed in 2013) and in proximal right coronary (Promus Premier 3.0 x 12 mm placed in 2013). The mid left anterior descending artery has 40 to 50% stenosis, which is hemodynamically insignificant (fractional flow reserve 0.87). Normal left ventricular end-diastolic pressure. Normal global left ventricular systolic function with ejection fraction of approximately 60%. Chronic diastolic CHF - clinically compensated 24 Hour Holter of November 14, 2016 showed NSR with very rare isolated PVC's, asymptomatic S/P permanent tracheostomy placement on 05-04-[address] Hou d/t vocal cord dysfunction which subsequently had to be removed in June [address] Sepulveda d/t tracheal stenosis Echocardiogram of 10/04/16: LVEF 70-75%, grade I hidalgo dysfunction, mild TR, PASP approx 45-50 mmHg Carotid u/s from July 22, 2017 showed mild bilat carotid arterial disease Obesity with BMI approx 35 Hypertriglyceridemia H/o hyperlipidemia - unable to tolerate oral statin d/t generalized muscle cramps; unable to tolerate injectable statin d/t nausea and runny nose DM II COPD H/o asthma Quit tobacco use in 2001 Sleep apnea treated with CPAP Chronic leg cramps, sometimes worse with walking and improved with rest - NAVYA from 02-22-14 was normal Chronic R foot drop for which she wears a brace H/o diabetic neuropathy TSH of November 14, 2016: 3.68 Plan: Coronary status d/w her Continue current medication regimen including Plavix OK for discharge today F/U appt to see Dr. Manuel in 1-2 week Physician Assessment Physician Assessment Feels better Shortness of breath improved No cp or palp No groin discomfort Lungs: good bilat air entry, prolonged exp phase Cor: reg Ext: no c/c/e Mild R groin bruising and palpable peripheral pulses A&R * As documented in our note above that I updated (italics) and as noted below * I discussed with her in detail the procedure findings, the interventions undertakent, the med changes made, risk factor mod, and outpt f/u, and answered questions in detail RICKEY ROTH SHAKE SPLITTER Apr 15, 2018 07:57 DIONTE MANUEL MD [facility] Apr 15, 2018 10:45
[2018-04-15 08:00] VITALS: BP 131/85
[2018-04-15] MEDS ORDERED: TIOTROPIUM BROMIDE (SPIRIVA) 5'S INHALER IH SCH (08:00)
[2018-04-15] MEDS ORDERED: UMECLIDINIUM BROMIDE (INCRUSE ELLIPTA) 7'S IH SCH (08:00)
[2018-04-15] MEDS: PREGABALIN 75 MG (LYRICA) CAP PO SCH (08:32)
[2018-04-15] MEDS ORDERED: ceTIRizine 10 MG (ZyrTEC) TAB NON-FORMULARY PO SCH (09:00)
[2018-04-15] MEDS ORDERED: NON-FORMULARY MEDICATION 1 EA EA (Cetirizine HCl 10 MG) PO SCH (09:00)
[2018-04-15] MEDS ORDERED: lisINopril 5 MG (PRINIVIL) TABLET PO SCH ×2 (09:00)
[2018-04-15] MEDS ORDERED: NON-FORMULARY MEDICATION 1 EA EA (Fenofibrate Nanocrystallized (Fenofibrate) 145 MG) PO SCH (09:00)
[2018-04-15] MEDS ORDERED: FLUTICASONE NASAL SPRAY (FLONASE) 16 GM BTL NS SCH ×2 (09:00)
[2018-04-15] MEDS ORDERED: CLOPIDOGREL 75 MG (PLAVIX) TABLET PO SCH (09:00)
[2018-04-15] MEDS ORDERED: VITAMIN D3 1,000 UNITS (CHOLECALCIFEROL) TABLET PO SCH ×2 (09:00)
[2018-04-15] MEDS ORDERED: ASPIRIN 81 MG CHEW (CHILDREN'S ASA) PO SCH ×2 (09:00)
[2018-04-15] MEDS ORDERED: INSULIN DEGLUDEC 10 UNIT SQ SCH (09:00)
[2018-04-15] MEDS ORDERED: LORATADINE (CLARITIN) 10 MG TAB PO SCH (09:00)
[2018-04-15] MEDS ORDERED: FENOFIBRATE 145 MG TAB PO SCH (09:00)
[2018-04-15] MEDS ORDERED: inSUlin DETERMIR 1 UNIT/0.01 ML (LEVEMIR) CHARGE PER UNIT SQ SCH (09:00)
[2018-04-15] MEDS ORDERED: NON-FORMULARY MEDICATION 1 EA EA (Multivit-Min/FA/Lycopene/Lut (Centrum Silver Tablet) 1 T PO SCH (09:00)
[2018-04-15] MEDS ORDERED: NON-FORMULARY MEDICATION 1 EA EA (Cholecalciferol (Vitamin D3) (Vitamin D3) 1,000 UNIT) PO SCH (09:00)
[2018-04-15] MEDS ORDERED: CLOP75TA28 PO (09:09)
[2018-04-15] MEDS ORDERED: ASPI-999 PO (09:09)
--- NOTE | 2018-04-15 09:11 | Discharge Inst-Cardiology ---
Discharge Inst-Cardiac Discharge Medications New Medications: Aspirin (Aspirin) 81 Mg Tab.chew 0 MG PO DAILY, #30 TAB 5 Refills Clopidogrel Bisulfate (Clopidogrel) 75 Mg Tablet 75 MG PO DAILY, #30 TAB 5 Refills Continued Medications: Albuterol Sulfate (Ventolin Hfa) 18 Gm Hfa.aer.ad 2 PUFF INH Q4H PRN for SHORTNESS OF BREATH, INHALER Amitriptyline HCl (Amitriptyline HCl) 50 Mg Tablet 50 MG PO HS, TAB Atorvastatin Calcium (Atorvastatin Calcium) 40 Mg Tablet 40 MG PO HS, TAB Buprenorphine (Butrans) 1 Each Patch.tdwk 1 PATCH TD Th, EA Cetirizine HCl (Cetirizine HCl) 10 Mg Tablet 10 MG PO DAILY, TAB Cholecalciferol (Vitamin D3) (Vitamin D3) 1,000 Unit Capsule 1000 UNIT PO DAILY, CAP Cyclosporine (Restasis) 1 Each Droperette 1 DROP OU BID PRN for DRY EYES, EA Fenofibrate Nanocrystallized (Fenofibrate) 145 Mg Tablet 145 MG PO DAILY, TAB Fluticasone Propionate (Fluticasone Propionate) 16 Gm [place].susp 2 SPRAYS NS DAILY, SPRAY Fluticasone/Salmeterol (Advair 250-50 Diskus) 1 Each Blst.w.dev 1 PUFF IH BID, INHALER Glimepiride (Glimepiride) 2 Mg Tablet 2 MG PO BID, TAB Hydrocodone/Acetaminophen (Hydrocodon-Acetaminophn 10-325) 1 Each Tablet 1 TAB PO QID PRN for PAIN-MODERATE, TAB Insulin Degludec (Tresiba Flextouch U-100) 100 Unit/1 Ml Insuln.pen 10 UNIT SQ DAILY, EA Ipratropium/Albuterol Sulfate (Iprat-Albut 0.5-3(2.5) mg/3 ml) 3 Ml Ampul.neb 3 ML NEB Q4H PRN for SHORTNESS OF BREATH, EACH Lisinopril (Lisinopril) 5 Mg Tablet 5 MG PO DAILY, TAB Metformin HCl (Metformin HCl ER) 500 Mg Tab.er.24h 1000 MG PO 1730, TAB TAKES 2 (500MG) TABLETS Metoprolol Succinate (Metoprolol Succinate) 25 Mg Tab.er.24h 25 MG PO DAILY, TAB Montelukast Sodium (Montelukast Sodium) 10 Mg Tablet 10 MG PO HS, TAB Multivit-Min/FA/Lycopene/Lut (Centrum Silver Tablet) 1 Each Tablet 1 TAB PO DAILY, TAB [place]-3/Dha/Epa/Fish Oil (Fish Oil 1,000 mg Softgel) 1 Each Capsule 2000 MG PO BID, CAP TAKES 2 (1000MG) CAPSULES Pantoprazole Sodium (Pantoprazole Sodium) 40 Mg Tablet.dr 40 MG PO BID, TAB Pregabalin (Lyrica) 75 Mg Capsule 75 MG PO TID, CAP Tiotropium [place] (Spiriva) 1 Inh Aerp 1 CAP IH DAILY, INHALER Discontinued Medications: Aspirin (Aspir 81) 81 Mg Tablet.dr 81 MG PO DAILY, TAB New, Converted or Re-Newed RX: Transmitted to Pharmacy Patient Instructions Patient Instructions: HOLD METFORMIN TODAY AND TOMORROW. Restart on Friday, April 17, 2018 Please schedule follow up appointment to see Dr. Manuel in 1-2 weeks RICKEY ROTH Apr 15, 2018 09:11
[2018-04-15] MEDS: NS IV 1000 ML 1,000 ML IV SCH (10:08)
[2018-04-15 11:15] VITALS: BP 131/85
[2018-04-16] MEDS ORDERED: [UNRECOGNIZED DRUG - REMARK] TP SCH (08:59)
[2018-04-16] MEDS ORDERED: BUTRANS TD SCH (09:00)
[2018-04-16] MEDS ORDERED: BUPRENORPHINE TD SCH (12:00)
== END 2018-04-15 10:40 | disposition home or self-care (01) ==
LOC: CATH 08:46 → ICU 12:15 → CATH 04-15 10:40
PROVIDERS: ATTEND Internal Medicine Cardiovascular Disease
DX: I25.10 Atherosclerotic heart disease of native coronary artery without angina pectoris (principal); J44.9 Chronic obstructive pulmonary disease, unspecified; E11.40 Type 2 diabetes mellitus with diabetic neuropathy, unspecified; E78.5 Hyperlipidemia, unspecified; F39 Unspecified mood [affective] disorder; G47.33 Obstructive sleep apnea (adult) (pediatric); I27.20 Pulmonary hypertension, unspecified; Z86.010 Personal history of colon polyps; Z80.0 Family history of malignant neoplasm of digestive organs; Z80.1 Family history of malignant neoplasm of trachea, bronchus and lung; Z87.891 Personal history of nicotine dependence; I50.32 Chronic diastolic (congestive) heart failure; I77.89 Other specified disorders of arteries and arterioles; E66.9 Obesity, unspecified; Z68.35 Body mass index [BMI] 35.0-35.9, adult; E78.1 Pure hyperglyceridemia; M21.371 Foot drop, right foot; R25.2 Cramp and spasm; Z79.4 Long term (current) use of insulin; Z79.899 Other long term (current) drug therapy
CPT/HCPCS: 36415; 80048; 80053; 80061; 85027; 85610; 85730; 87081; 93005; 93458; 94640

== ENCOUNTER → 2018-06-09 | Outpatient (CLI) | payer MEDICARE, MEDICAID ==
[~2018-06-09] MED LIST changes: +AMIT50TA3 PO; +ATOR40TA70 PO; +FLUT16SP22 NS; +INSU100I32 SQ; +PREG75CA PO
--- NOTE | 2018-06-09 11:09 | Diagnostic Imaging Report ---
INDICATION: Postmenopausal screening for osteoporosis. COMPARISON: None FINDINGS: AP Spine L1-L4: [BMD (g/cm2): 1.068] [T-Score: -1.1] [Z-Score: NA] [BMD Previous: NA] [BMD % Change: NA] LT Hip Neck: [BMD (g/cm2): 1.161] [T-Score: 0.9] [Z-Score: NA] LT Hip Total: [BMD (g/cm2):1.178] [T-Score:1.4] [Z-Score: NA] [BMD Previous: NA] [BMD % Change: NA] RT Hip Neck: [BMD (g/cm2):1.156] [T-Score:0.8] [Z-Score:NA] RT Hip Total: [BMD (g/cm2):1.161] [T-score:1.2] [Z-Score:NA] [BMD Previous:NA] [BMD % Change:NA] *Indicates significant change from prior examination based on 95% confidence level. World Health Organization criteria for BMD interpretation classify patients as Normal (T-score at or above -1.0), Osteopenic (T-score between -1.0 and -2.5) or Osteoporotic (T-score at or below -2.5). LIMITATIONS AND MODIFICATION: None. FRACTURE RISK (FRAX SCORE): The ten year probability of (%): Major Osteoporotic Fracture: [NA] Hip Fracture: [NA] IMPRESSION: 1. Osteopenia (Low bone mass). 2. Baseline examination. 3. See below National Osteoporosis Foundation guidelines on when to potentially initiate pharmacologic therapy. Based on the National Osteoporosis Foundation Guidelines, pharmacologic treatment should be initiated in any of the following, unless clinical conditions suggest otherwise: * Any patient with prior fragility fracture of the hip or vertebrae. A spine fracture indicates 5X risk for subsequent spine fracture and 2X risk for subsequent hip fracture. * Osteoporosis (T-score <-2.5). * Postmenopausal women and men age 50 and older with low bone mass/osteopenia (T-score between -1.0 and -2.5) by DXA and 10-year major osteoporotic fracture greater than 20% or a 10-year probability of hip fracture greater than 3%. These fracture risks are supplied above in the FRAX score, if applicable. * Clinician judgement and/or patient preferences may indicate treatment for people with 10-year fracture probabilities above or below these levels. Dictated by: Dictated on workstation # [id number]
--- NOTE | 2018-06-09 12:47 | Diagnostic Imaging Report ---
INDICATION: Routine screening. Comparison is made with prior mammogram from 04/25/2017 and 02/27/2016. 2-D and 3-D bilateral screening mammography was performed with a Computer Aided Detection (CAD) system. FINDINGS: Both breasts are heterogeneously dense, limiting the sensitivity of mammography. The parenchymal pattern is stable. No mass or malignant-appearing microcalcifications are seen. There are benign calcifications bilaterally. The axillae are unremarkable. IMPRESSION: No mammographic features suspicious for malignancy are identified. ACR BI-RADS Category 2: Benign findings. Result letter will be mailed to the patient. Note: At least 10% of breast cancer is not imaged by mammography. Dictated by: Dictated on workstation # [id number]
== END ==
LOC: RAD 09:29
PROVIDERS: ATTEND Nurse Practitioner Primary Care
DX: Z12.31 Encounter for screening mammogram for malignant neoplasm of breast (principal); Z13.820 Encounter for screening for osteoporosis; M85.80 Other specified disorders of bone density and structure, unspecified site
CPT/HCPCS: 77067; 77080

== ENCOUNTER → 2018-06-18 | Outpatient (CLI) | payer MEDICARE, MEDICAID ==
[2018-06-18 11:00] LABS: ALANINE AMINOTRANSFERASE 40 U/L (0-55); ALBUMIN 4.1 GM/DL (3.2-4.5); ALKALINE PHOSPHATASE 58 U/L (40-136); BILIRUBIN,TOTAL 0.5 MG/DL (0.1-1.0); BUN/CREATININE RATIO 17; CALCIUM 9.8 MG/DL (8.5-10.1); CARBON DIOXIDE 27 MMOL/L (21-32); CHLORIDE 105 MMOL/L (98-107); CHOLESTEROL 255 MG/DL (< 200); CREATININE SERUM 0.88 MG/DL (0.60-1.30); GFR ESTIMATED > 60; GLUCOSE 113 MG/DL (70-105); HDL CHOLESTEROL 33 MG/DL (40-60); POTASSIUM 3.9 MMOL/L (3.6-5.0); SODIUM 140 MMOL/L (135-145); TOTAL PROTEIN 6.3 GM/DL (6.4-8.2); TRIGLYCERIDES 658 MG/DL (<150)
== END ==
LOC: LAB 10:02
PROVIDERS: ATTEND Internal Medicine Cardiovascular Disease
DX: I25.10 Atherosclerotic heart disease of native coronary artery without angina pectoris (principal); E11.9 Type 2 diabetes mellitus without complications; E78.5 Hyperlipidemia, unspecified
CPT/HCPCS: 36415; 80053; 80061; 84443

== ENCOUNTER → 2018-08-24 | Outpatient (CLI) | payer MEDICARE, MEDICAID ==
[2018-08-24 12:18] LABS: BASOPHILS % (AUTO) 0 % (0-10); EOSINOPHILS # (AUTO) 0.1 10^3/uL (0.0-0.3); EOSINOPHILS % (AUTO) 3 % (0-10); HEMATOCRIT 35 % (35-52); HEMOGLOBIN 11.9 G/DL (11.5-16.0); LYMPHOCYTES # (AUTO) 1.8 X 10^3 (1.0-4.0); LYMPHOCYTES % (AUTO) 47 % (12-44); MEAN CORPUSCULAR HEMOGLOBIN 29 PG (25-34); MEAN CORPUSCULAR HGB CONC 34 G/DL (32-36); MEAN CORPUSCULAR VOLUME 86 FL (80-99); MONOCYTES # (AUTO) 0.3 X 10^3 (0.0-1.0); MONOCYTES % (AUTO) 9 % (0-12); NEUTROPHILS # (AUTO) 1.6 X 10^3 (1.8-7.8); NEUTROPHILS % (AUTO) 41 % (42-75); PLATELET COUNT 169 10^3/uL (130-400); RED CELL DISTRIBUTION WIDTH 13.2 % (10.0-14.5); WHITE BLOOD COUNT 3.8 10^3/uL (4.3-11.0)
[2018-08-24 12:49] LABS: ALANINE AMINOTRANSFERASE 44 U/L (0-55); ALBUMIN 4.3 GM/DL (3.2-4.5); ALKALINE PHOSPHATASE 62 U/L (40-136); BILIRUBIN,TOTAL 0.6 MG/DL (0.1-1.0); BUN/CREATININE RATIO 17; CALCIUM 9.5 MG/DL (8.5-10.1); CARBON DIOXIDE 25 MMOL/L (21-32); CHLORIDE 106 MMOL/L (98-107); CHOLESTEROL 253 MG/DL (< 200); CREATININE SERUM 0.94 MG/DL (0.60-1.30); GFR ESTIMATED 60; GLUCOSE 171 MG/DL (70-105); HDL CHOLESTEROL 31 MG/DL (40-60); MAGNESIUM 2.1 MG/DL (1.8-2.4); SODIUM 140 MMOL/L (135-145); TOTAL PROTEIN 6.1 GM/DL (6.4-8.2); TRIGLYCERIDES 655 MG/DL (<150)
== END ==
LOC: LAB 11:54
PROVIDERS: ATTEND Internal Medicine Cardiovascular Disease
DX: I25.10 Atherosclerotic heart disease of native coronary artery without angina pectoris (principal); E11.9 Type 2 diabetes mellitus without complications; E78.5 Hyperlipidemia, unspecified; G47.33 Obstructive sleep apnea (adult) (pediatric); I27.20 Pulmonary hypertension, unspecified; R00.2 Palpitations
CPT/HCPCS: 36415; 80053; 80061; 83735; 84443; 85025

== ENCOUNTER → 2018-11-20 | Outpatient (CLI) | payer MEDICARE, MEDICAID ==
[2018-11-20 09:14] LABS: ALANINE AMINOTRANSFERASE 24 U/L (0-55); ALBUMIN 4.2 GM/DL (3.2-4.5); ALKALINE PHOSPHATASE 49 U/L (40-136); BILIRUBIN,TOTAL 0.4 MG/DL (0.1-1.0); BUN/CREATININE RATIO 20; CALCIUM 9.7 MG/DL (8.5-10.1); CARBON DIOXIDE 22 MMOL/L (21-32); CHLORIDE 105 MMOL/L (98-107); CHOLESTEROL 216 MG/DL (< 200); CREATININE SERUM 0.89 MG/DL (0.60-1.30); GFR ESTIMATED > 60; GLUCOSE 117 MG/DL (70-105); HDL CHOLESTEROL 46 MG/DL (40-60); POTASSIUM 3.7 MMOL/L (3.6-5.0); SODIUM 140 MMOL/L (135-145); TOTAL PROTEIN 6.5 GM/DL (6.4-8.2); TRIGLYCERIDES 173 MG/DL (<150); VLDL CHOLESTEROL 35 MG/DL (5-40)
== END ==
LOC: LAB 08:28
PROVIDERS: ATTEND Internal Medicine Cardiovascular Disease
DX: I25.10 Atherosclerotic heart disease of native coronary artery without angina pectoris (principal); E11.9 Type 2 diabetes mellitus without complications; I65.29 Occlusion and stenosis of unspecified carotid artery; E78.5 Hyperlipidemia, unspecified; E78.1 Pure hyperglyceridemia; I27.21 Secondary pulmonary arterial hypertension
CPT/HCPCS: 36415; 80053; 80061

== ENCOUNTER → 2019-02-22 | Outpatient (CLI) | payer MEDICARE, MEDICAID ==
[2019-02-22 12:31] LABS: ALANINE AMINOTRANSFERASE 43 U/L (0-55); ALBUMIN 4.3 GM/DL (3.2-4.5); ALKALINE PHOSPHATASE 46 U/L (40-136); BILIRUBIN,TOTAL 0.6 MG/DL (0.1-1.0); BUN/CREATININE RATIO 17; CALCIUM 9.8 MG/DL (8.5-10.1); CARBON DIOXIDE 26 MMOL/L (21-32); CHLORIDE 106 MMOL/L (98-107); CHOLESTEROL 245 MG/DL (< 200); CREATININE SERUM 0.89 MG/DL (0.60-1.30); GFR ESTIMATED > 60; GLUCOSE 162 MG/DL (70-105); HDL CHOLESTEROL 36 MG/DL (40-60); POTASSIUM 3.9 MMOL/L (3.6-5.0); SODIUM 141 MMOL/L (135-145); TOTAL PROTEIN 6.3 GM/DL (6.4-8.2); TRIGLYCERIDES 626 MG/DL (<150); VLDL CHOLESTEROL 125 MG/DL (5-40)
== END ==
LOC: LAB 11:48
PROVIDERS: ATTEND Nurse Practitioner Family
DX: I65.29 Occlusion and stenosis of unspecified carotid artery (principal); I25.10 Atherosclerotic heart disease of native coronary artery without angina pectoris; E78.5 Hyperlipidemia, unspecified; G47.33 Obstructive sleep apnea (adult) (pediatric)
CPT/HCPCS: 36415; 80053; 80061

== ENCOUNTER → 2019-03-05 | Outpatient (CLI) | payer MEDICARE, MEDICAID ==
--- NOTE | 2019-03-05 13:09 | Diagnostic Imaging Report ---
INDICATION: COPD ALLERGIC RHINITIS HYPOXEMIA REQUIRING OXYGEN SOB ON EXERTION COMPARISON: 08/25/2017 FINDINGS: Frontal and lateral views of the chest demonstrate normal heart size and pulmonary vascularity. The lungs are clear. There are no signs of infiltrate, pleural effusions or pneumothoraces. The visualized osseous structures show no acute abnormalities. IMPRESSION: 1. No acute process. No signs of infiltrates, effusions or pneumothoraces. Dictated by: Dictated on workstation # [id number]
== END ==
LOC: RAD 11:25
PROVIDERS: ATTEND Nurse Practitioner Family
DX: J44.9 Chronic obstructive pulmonary disease, unspecified (principal); J30.9 Allergic rhinitis, unspecified
CPT/HCPCS: 71046

== ENCOUNTER → 2019-03-11 | Outpatient (CLI) | payer MEDICARE, MEDICAID | LOC: CARD 10:30 | PROVIDERS: ATTEND Internal Medicine Cardiovascular Disease | DX: J43.8 Other emphysema (principal); I27.21 Secondary pulmonary arterial hypertension; R09.02 Hypoxemia; I34.0 Nonrheumatic mitral (valve) insufficiency ==

== ENCOUNTER → 2019-03-11 | Outpatient (CLI) | payer MEDICARE, MEDICAID ==
[~2019-03-11] MED LIST changes: +CATHETER FLUSH 10 ML SYR IV PRN; +HOLD METFORMIN - RECEIVED CONTRAST 20 ML VIAL IV SCH; +IOHEXOL 350 MG/ML 100 ML (OMNIPAQUE 350) VIAL IV ONE; +NS 100 ML (IVPB) BAG IV ONE
[2019-03-11 11:07] LABS: CREATININE SERUM 0.94 MG/DL (0.60-1.30)
--- NOTE | 2019-03-11 11:59 | Diagnostic Imaging Report ---
EXAMINATION: CT Chest with intravenous contrast. TECHNIQUE: Multiple contiguous axial images were obtained through the chest after the uneventful administration of intravenous contrast. All CT scans use one or more of the following dose optimizing techniques: automated exposure control, MA and/or KvP adjustment based on a patient size and exam type, or iterative reconstruction. HISTORY: Pneumonia. COMPARISON: 07/05/2015. FINDINGS: The lungs are clear without edema or pneumonia. No pleural effusion or pneumothorax. No suspicious nodules. Heart size is normal. No pericardial effusion. Aorta is normal in caliber. There is no axillary or supraclavicular lymphadenopathy. There is no mediastinal lymphadenopathy. There are coronary artery calcifications with what are likely stones present in the right coronary artery and left anterior descending artery. 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 Limited views of the upper abdomen are unremarkable. There are no suspicious osseus lesions. IMPRESSION: 1. Clear lungs. Dictated by: Dictated on workstation # [id number]
--- NOTE | 2019-03-11 12:28 | Diagnostic Imaging Report ---
INDICATION: Hypoxemia. PA and lateral chest. FINDINGS: Heart size and pulmonary vascularity are normal. Lungs are clear. There are no effusions or pneumothoraces. IMPRESSION: Negative chest. Dictated by: Dictated on workstation # [id number]
== END ==
LOC: RAD 10:34
PROVIDERS: ATTEND Nurse Practitioner Family
DX: J43.8 Other emphysema (principal); J30.9 Allergic rhinitis, unspecified; R09.02 Hypoxemia; I34.0 Nonrheumatic mitral (valve) insufficiency
CPT/HCPCS: 36415; 71046; 71260; 82565; 84520; 93306

== ENCOUNTER → 2019-08-17 | Outpatient (CLI) | payer MEDICARE, MEDICAID ==
[~2019-08-17] MED LIST changes: +ACHYD1T PO; -ARIP5TAB20 PO; +ARIP5TAB57 PO; -CATHETER FLUSH 10 ML SYR IV PRN; -DIAZ5TAB3 PO; +DIAZ5TAB49 PO; +FENO145T26 PO; -FENO145T37 PO; +GLIM2TAB4 PO; -HOLD METFORMIN - RECEIVED CONTRAST 20 ML VIAL IV SCH; -HYDR-3820 PO; -IOHEXOL 350 MG/ML 100 ML (OMNIPAQUE 350) VIAL IV ONE; -MAGN296S50 PO; +MAGN296S71 PO; +METF-865 PO; -METF500T8 PO; -METO-370 PO; -METO-387 PO; -MONT10TA24 PO; +MONT10TA26 PO; +MTP25TSR PO; -NS 100 ML (IVPB) BAG IV ONE; +OMEP40CA27 PO
[2019-08-17 09:09] LABS: CALCIUM 9.4 MG/DL (8.5-10.1)
[2019-08-17 09:13] LABS: CREATININE SERUM 1.14 MG/DL (0.60-1.30)
[2019-08-17 09:15] LABS: MAGNESIUM 2.1 MG/DL (1.6-2.4)
== END ==
LOC: LAB 08:39
PROVIDERS: ATTEND Nurse Practitioner Family
DX: I25.10 Atherosclerotic heart disease of native coronary artery without angina pectoris (principal); R06.00 Dyspnea, unspecified; R06.01 Orthopnea; E78.5 Hyperlipidemia, unspecified; G47.33 Obstructive sleep apnea (adult) (pediatric)
CPT/HCPCS: 36415; 80048; 83735

== ENCOUNTER → 2019-09-27 | Outpatient (CLI) | payer MEDICARE, MEDICAID ==
[2019-09-27 13:33] LABS: BASOPHILS % (AUTO) 0 % (0-10); EOSINOPHILS # (AUTO) 0.1 10^3/uL (0.0-0.3); EOSINOPHILS % (AUTO) 3 % (0-10); HEMATOCRIT 36 % (35-52); HEMOGLOBIN 12.1 G/DL (11.5-16.0); LYMPHOCYTES # (AUTO) 2.8 X 10^3 (1.0-4.0); LYMPHOCYTES % (AUTO) 58 % (12-44); MEAN CORPUSCULAR HEMOGLOBIN 29 PG (25-34); MEAN CORPUSCULAR HGB CONC 33 G/DL (32-36); MEAN CORPUSCULAR VOLUME 87 FL (80-99); MEAN PLATELET VOLUME 10.7 FL (7.4-10.4); MONOCYTES # (AUTO) 0.4 X 10^3 (0.0-1.0); MONOCYTES % (AUTO) 7 % (0-12); NEUTROPHILS # (AUTO) 1.6 X 10^3 (1.8-7.8); NEUTROPHILS % (AUTO) 32 % (42-75); PLATELET COUNT 159 10^3/uL (130-400); RED CELL DISTRIBUTION WIDTH 13.7 % (10.0-14.5); WHITE BLOOD COUNT 4.9 10^3/uL (4.3-11.0)
[2019-09-27 13:52] LABS: ALBUMIN 4.1 GM/DL (3.2-4.5); BILIRUBIN,TOTAL 0.4 MG/DL (0.1-1.0); CALCIUM 9.2 MG/DL (8.5-10.1); CREATININE SERUM 1.02 MG/DL (0.60-1.30); MAGNESIUM 1.8 MG/DL (1.6-2.4); TOTAL PROTEIN 6.1 GM/DL (6.4-8.2)
== END ==
LOC: CARD 13:11
PROVIDERS: ATTEND Internal Medicine Cardiovascular Disease
DX: I25.10 Atherosclerotic heart disease of native coronary artery without angina pectoris (principal); I10 Essential (primary) hypertension; I65.29 Occlusion and stenosis of unspecified carotid artery; J44.9 Chronic obstructive pulmonary disease, unspecified; E78.5 Hyperlipidemia, unspecified; G47.33 Obstructive sleep apnea (adult) (pediatric); I27.21 Secondary pulmonary arterial hypertension
CPT/HCPCS: 36415; 80053; 80061; 83735; 84443; 85025; 93225; 93226

== ENCOUNTER → 2019-10-26 | Outpatient (CLI) | payer MEDICARE, MEDICAID ==
[~2019-10-26] MED LIST changes: +RT-ALBUTEROL SULF 2.5 MG/3 ML PRE-MIX VIAL INH ONE
== END ==
LOC: RT 15:00
PROVIDERS: ATTEND Nurse Practitioner Family
DX: J45.909 Unspecified asthma, uncomplicated (principal)
CPT/HCPCS: 94060; 94726; 94729

== ENCOUNTER → 2019-12-16 | Outpatient (CLI) | payer MEDICARE, MEDICAID ==
[~2019-12-16] MED LIST changes: -PANT40TA3 PO; +PANT40TA52 PO; -RT-ALBUTEROL SULF 2.5 MG/3 ML PRE-MIX VIAL INH ONE
--- NOTE | 2019-12-20 08:19 | Diagnostic Imaging Report ---
Digital mammogram. Bilateral screening This study was compared to the prior exam of 06/09/2018, 04/25/2017 and 02/27/2016. At this time there are no current complaints. The current study was also evaluated with a Computer Aided Detection (CAD) system. FINDINGS: The fibroglandular tissue in both breasts is heterogeneously dense. This does limit the sensitivity of this exam. Overall, there does not appear to have been any significant change when compared to the prior study. No primary or secondary sign of malignancy is noted. IMPRESSION: There is no radiographic evidence for malignancy. ACR BI-RADS Category 1: Negative. Result letter will be mailed to the patient. Note: At least 10% of breast cancer is not imaged by mammography. Dictated by: Dictated on workstation # [id number]
== END ==
LOC: RAD 14:45
PROVIDERS: ATTEND Nurse Practitioner Family
DX: Z12.31 Encounter for screening mammogram for malignant neoplasm of breast (principal)
CPT/HCPCS: 77063; 77067

== ENCOUNTER 2019-12-25 18:09 | Inpatient (IN) | payer MEDICARE, MEDICAID ==
[~2019-12-25] VITALS: Ht 167 cm; Wt 112.5 kg
[2019-12-25] MEDS ORDERED: LACTATED RINGERS 1,000 ML IV ONE ×2 (18:11→19:12)
[2019-12-25] MEDS ORDERED: methylPREDNISolone 125 MG (Solu-MEDROL) VIAL ONE (18:11)
[2019-12-25] MEDS ORDERED: MAGNESIUM 1 GM/100 ML IVPB 100 ML IV ONE ×2 (18:13→18:30)
[2019-12-25] MEDS ORDERED: NITROGLYCERIN 2% OINT 1 GM UNIT DOSE PACKET ONE (18:18)
[2019-12-25] MEDS ORDERED: morphine INJ 10 MG/ML 1ML (SYR OR VIAL) IV STA (18:18)
[2019-12-25] MEDS ORDERED: NITROGLYCERIN 2% OINT 1 GM UNIT DOSE PACKET TOP STA (18:18)
[2019-12-25] MEDS ORDERED: VANCOMYCIN INJECTION 2,000 MG in NS IV 500 ML 500 ML IV ONE (18:22)
[2019-12-25] MEDS ORDERED: CEFEPIME INJECTION 1,000 MG in WATER (STERILE) FOR INJECTION 10 ML IV ONE (18:30)
[2019-12-25] MEDS ORDERED: LACTATED RINGERS 1,000 ML IV SCH ×2 (18:30→19:15)
[2019-12-25] MEDS ORDERED: ASPIRIN 81 MG CHEW (CHILDREN'S ASA) PO ONE (18:30)
[2019-12-25] MEDS ORDERED: methylPREDNISolone 125 MG (Solu-MEDROL) VIAL IVP ONE (18:30)
[2019-12-25 18:32] LABS: BASOPHILS % (AUTO) 0 % (0-10); EOSINOPHILS # (AUTO) 0.2 10^3/uL (0.0-0.3); EOSINOPHILS % (AUTO) 2 % (0-10); HEMATOCRIT 39 % (35-52); HEMOGLOBIN 13.1 g/dL (11.5-16.0); LYMPHOCYTES # (AUTO) 4.2 10^3/uL (1.0-4.0); LYMPHOCYTES % (AUTO) 41 % (12-44); MEAN CORPUSCULAR HEMOGLOBIN 29 pg (25-34); MEAN CORPUSCULAR HGB CONC 34 g/dL (32-36); MEAN CORPUSCULAR VOLUME 86 fL (80-99); MONOCYTES # (AUTO) 0.5 10^3/uL (0.0-1.0); MONOCYTES % (AUTO) 5 % (0-12); NEUTROPHILS # (AUTO) 5.3 10^3/uL (1.8-7.8); NEUTROPHILS % (AUTO) 52 % (42-75); PLATELET COUNT 245 10^3/uL (130-400); WHITE BLOOD COUNT 10.3 10^3/uL (4.3-11.0)
[2019-12-25] MEDS ORDERED: EPINEPHrine INJECTION 1 MG/ML AMP ONE (18:33)
[2019-12-25] MEDS ORDERED: EPINEPHrine INJECTION 1 MG/ML AMP IM ONE ×2 (18:45→19:45)
[2019-12-25 18:47] LABS: INR 0.8 (0.8-1.4); PROTHROMBIN TIME PATIENT 11.9 SEC (12.2-14.7)
[2019-12-25] MEDS ORDERED: RT-ALBUTEROL SULF 2.5 MG/3 ML PRE-MIX VIAL ONE (18:50)
[2019-12-25 18:57] LABS: ALBUMIN 4.8 GM/DL (3.2-4.5); CHLORIDE 98 MMOL/L (98-107); POTASSIUM 3.9 MMOL/L (3.6-5.0); SODIUM 137 MMOL/L (135-145)
[2019-12-25 18:58] LABS: CALCIUM 10.1 MG/DL (8.5-10.1)
[2019-12-25 18:59] LABS: GLUCOSE 217 MG/DL (70-105)
[2019-12-25 19:00] LABS: TOTAL PROTEIN 7.6 GM/DL (6.4-8.2)
[2019-12-25 19:00] LABS: ABG BASE EXCESS -1.3 MMOL/L (-2.5-2.5); ABG OXYGEN SATURATION 100 % (94-100); ABG PCO2 23 MMHG (35-45); ABG PH 7.56 (7.37-7.43); ABG PO2 339 MMHG (79-93); ABG TCO2 21.5 MMOL/L (21.0-31.0)
[2019-12-25 19:01] LABS: ALLENS TEST POS; INSPIRED O2 100; PATIENT TEMP 97.8; VENTILATOR YES
[2019-12-25 19:01] LABS: BILIRUBIN,TOTAL 0.5 MG/DL (0.1-1.0); CARBON DIOXIDE 20 MMOL/L (21-32)
[2019-12-25 19:03] LABS: ALKALINE PHOSPHATASE 55 U/L (40-136); CREATININE SERUM 1.35 MG/DL (0.60-1.30); GFR ESTIMATED 39
[2019-12-25 19:04] LABS: BUN/CREATININE RATIO 16
[2019-12-25 19:06] VITALS: BP 191/106
[2019-12-25 19:06] LABS: ALANINE AMINOTRANSFERASE 52 U/L (0-55); MAGNESIUM 1.8 MG/DL (1.6-2.4)
--- NOTE | 2019-12-25 19:10 | ED Respiratory ---
General Chief Complaint: Respiratory Problems Stated Complaint: SOB Nursing Triage Note: PT ARRIVES BY PRIVATE VEHICLE FROM THE MEDICAL [facility]ENTER WITH COA COPD EXACERBATION. PT COULD NOT GET OUT OF VEHICLE ON OWN, AND WORK OF BREATHING IS EXTREME. PT ON HOME O2 AT 3L. PT IS CAUGHING UP THICK GREEN SPUTUM. PT SAID THE MEDICAL CENTER PUT HER ON STEROIDS LAST WEEK BECAUSE SHE WAS SICK. Source: patient Exam Limitations: no limitations History of Present Illness Date Seen by Provider: Dec 25, 2019 Time Seen by Provider: 18:05 Initial Comments Patient arrives ER by private conveyance from the health clinic with shortness of breath and feeling that she has thick sputum in the back of her throat. She has had no fevers or productive cough. She has a history of tracheostomy and upper airway obstruction. She is a very difficult historian because of her sh ortness of air. She has a history of COPD or dependent on 3 L by nasal cannula. She says she took her albuterol inhaler before coming in and it did not help. The clinic did a rapid COVID swab which was negative. Patient states she has not been on antibiotics or steroids recently. Allergies and Home Medications Allergies Coded Allergies: dornase lloyd (Verified Allergy, Unknown, RAPID HEART BEAT, 03/23/17) Penicillins (Verified Adverse Reaction, Mild, NAUSEA, 03/23/17) codeine (Verified Adverse Reaction, Mild, NAUSEA, PT TAKES HYDROCODONE AT HOME, 03/23/17) etomidate (Verified Adverse Reaction, Unknown, seizures, 12/25/19) Home Medications Albuterol Sulfate 18 Gm Hfa.aer.ad, 2 PUFF INH Q4H PRN for SHORTNESS OF BREATH, (Reported) Amitriptyline HCl 50 Mg Tablet, 50 MG PO HS, (Reported) Aspirin 81 Mg Tab.chew, 0 MG PO DAILY Prescribed by: RICKEY ROTH on 04/15/18908 Atorvastatin Calcium 40 Mg Tablet, 40 MG PO HS, (Reported) Buprenorphine 1 Each Patch.tdwk, 1 PATCH TD Th, (Reported) Cetirizine HCl 10 Mg Tablet, 10 MG PO DAILY, (Reported) Cholecalciferol (Vitamin D3) 1,000 Unit Capsule, 1,000 UNIT PO DAILY, (Reported) Clopidogrel Bisulfate 75 Mg Tablet, 75 MG PO DAILY Prescribed by: RICKEY ROTH on 04/15/18 09 Cyclosporine 1 Each Droperette, 1 DROP OU BID PRN for DRY EYES, (Reported) Fenofibrate Nanocrystallized 145 Mg Tablet, 145 MG PO DAILY, (Reported) Fluticasone Propionate 16 Gm [place].susp, 2 SPRAYS NS DAILY, (Reported) Fluticasone/Salmeterol 1 Each Blst.w.dev, 1 PUFF IH BID, (Reported) Glimepiride 2 Mg Tablet, 2 MG PO BID, (Reported) Hydrocodone Bit/Acetaminophen 1 Each Tablet, 1 TAB PO QID PRN for PAIN-MODERATE, (Reported) Insulin Degludec 100 Unit/1 Ml Insuln.pen, 10 UNIT SQ DAILY, (Reported) Ipratropium/Albuterol Sulfate 3 Ml Ampul.neb, 3 ML NEB Q4H PRN for SHORTNESS OF BREATH, (Reported) Lisinopril 5 Mg Tablet, 5 MG PO DAILY, (Reported) Metformin HCl 500 Mg Tab.er.24h, 1,000 MG PO 1730, (Reported) TAKES 2 (500MG) TABLETS Metoprolol Succinate 25 Mg Tab.er.24h, 25 MG PO DAILY, (Reported) Montelukast Sodium 10 Mg Tablet, 10 MG PO HS, (Reported) Multivit-Min/FA/Lycopene/Lut 1 Each Tablet, 1 TAB PO DAILY, (Reported) Butner-3/Dha/Epa/Fish Oil 1 Each Capsule, 2,000 MG PO BID, (Reported) TAKES 2 (1000MG) CAPSULES Pantoprazole Sodium 40 Mg Tablet.dr, 40 MG PO BID, (Reported) Pregabalin 75 Mg Capsule, 75 MG PO TID, (Reported) Tiotropium Rodney 1 Inh Aerp, 1 CAP IH DAILY, (Reported) Patient Home Medication List Home Medication List Reviewed: Yes Review of Systems Review of Systems Constitutional: No chills, No diaphoresis EENTM: No ear discharge, No ear pain Respiratory: cough, phlegm, short of breath, stridor, wheezing Cardiovascular: chest pain; No palpitations Gastrointestinal: No abdominal pain, No nausea, No vomiting Genitourinary: No discharge, No dysuria Musculoskeletal: No back pain, No joint pain All Other Systems Reviewed Negative Unless Noted: Yes Past Jedmrbp-Guriay-Ndobol Hx Patient Social History Alcohol Use: Denies Use Recreational Drug Use: No Smoking Status: Former Smoker Type Used: Cigarettes Former Smoker, Quit: Jun 20, 2002 2nd Hand Smoke Exposure: Yes Recent Foreign Travel: No Contact w/Someone Who Travel: No Recent Infectious Disease Expo: No Recent Hopitalizations: No Immunizations Up To Date Tetanus Booster (TDap): Unknown PED Vaccines UTD: Yes Date of Pneumonia Vaccine: Feb 21, 2017 Date of Influenza Vaccine: Dec 15, 2017 Seasonal Allergies Seasonal Allergies: Yes Past Medical History Surgeries: Yes Appendectomy, Gallbladder, 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, Orthopedic Respiratory: Yes (02 at 3 l cont) COPD Currently Using CPAP: Yes Currently Using BIPAP: No Cardiac: Yes Coronary Artery Disease, Hypertension Neurological: No 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, 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 Sexually Transmitted Disease: No Genitourinary: No Kidney Stones Gastrointestinal: Yes Gastroesophageal Reflux, Polyps Musculoskeletal: Yes (NECK PAIN, CERVICAL STENOSIS, ) Arthritis, Fibromyalgia, Rheumatoid Arthritis, Chronic Back Pain Endocrine: Yes Diabetes, Non-Insulin dep HEENT: Yes (VOCAL CORD SPASM/LARYNGOSPASM;GLASSES;DENTURES) Loss of Vision: Denies Hearing Impairment: Denies Cancer: No Psychosocial: Yes Anxiety, Depression Integumentary: No Blood Disorders: No Adverse Reaction/Blood Tranf: No Family Medical History Cancer 03 MOTHER (lung cancer 1987) Cardiovascular disease G8 BROTHER G8 SISTER Diabetes mellitus G8 SISTER Family history: Asthma 03 MOTHER Family history: Cardiovascular disease 03 FATHER Family history: Hypertension 03 MOTHER Family history: Osteoporosis 03 MOTHER History of - respiratory disease Hypertension G8 BROTHER G8 SISTER Respiratory disorder G8 BROTHER (LUNG CA) Stroke 03 MOTHER (1970,s stroke paraylsis lower extremies w/c ) Physical Exam Vital Signs - First Documented 12/25/19 12/25/19 12/25/19 12/25/19 18:09 18:12 19:06 20:25 Temp 36.6 Pulse 72 Resp 22 B/P (MAP) 197/111 (139) Pulse Ox 96 O2 Delivery OxyMask O2 Flow Rate 80.00 FiO2 60 Capillary Refill : Less Than 3 Seconds Height: 5'7.50" Weight: 236lbs. 0.0oz. [id number]; 34.00 BMI Method:Stated General Appearance: severe distress, obese Eyes: Bilateral Eye Normal Inspection, Bilateral Eye PERRL, Bilateral Eye EOMI HEENT: PERRL/EOMI, normal ENT inspection, pharynx normal Neck: full range of motion, supple, normal inspection Respiratory: respiratory distress, accessory muscle use, rhonchi (bilaterally), wheezing Cardiovascular: normal peripheral pulses, regular rate, rhythm, no murmur Gastrointestinal: normal bowel sounds, non tender, soft Extremities: normal range of motion, non-tender, normal capillary refill Neurologic/Psychiatric: no motor/sensory deficits, alert, normal mood/affect, oriented x 3 Skin: normal color, warm/dry Focused Exam Lactate Level 12/25/19 18:30: Lactic Acid Level 3.67*H Lactic Acid Level Laboratory Tests Test 12/25/19 18:30 Lactic Acid Level 3.67 MMOL/L (0.50-2.00) *H Procedures/Interventions Lumen: triple Central Line Procedure: betadine prep, sterile drapes applied, sterile dressing applied Position: internal jugular (R) Anesthesia: Lidocaine (3) Volume Anesthetic (ccs): 3 Complications: none Post Position: sutured, good blood return, position confirmed w/ CXR Risks, benefits and alternatives were discussed with the patient and he consented to the procedure. He was positioned in the usual format and using the usual sterile garment and drapes the patient was dressed out. The skin was thoroughly cleaned with the supplied chlorhexidine prep. After the prep and dried a sterile drape was placed. The 20 cm 7 K[place] triple-lumen catheter was flushed with sterile saline. We used ultrasound guidance to pass the introducer needle into the right internal jugular without difficulty. A guidewire was placed easily without difficulty. No ectopy was seen on the monitor. The supplied 11 blade scalpel was used to make a 2 mm incision at the inferior portion of the introducer needle. The introducer needle was replaced with the dilator. The dilator was taken out and the patient had the central lumen of the triple lumen catheter threaded over the guidewire and placed at 14 cm. The guidewire was removed and the triple-lumen catheter was stitched in place using the supplied braided stitch at 2 different points. The catheter withdrew blood and flushed easily. A sterile dressing was placed over the catheter. The patient tolerated the procedure well. A chest x-ray was obtained that demonstrated no pneumothorax and a new interval central catheter over the shadow of the right internal jugular down the superior vena cava and terminating just proximal to the right atria. Reason for Intubation: upper airway obstruction Date of ETT Placement: Dec 25, 2019 Time of ETT Placement: 20:30 Intubation Method: orotracheal Tube Size: 7.5 Medications: Etomidate (40 mg), Rocuronium (50 mg) Positive End Tide CO2: Yes Breath Sounds after Intubation: bilateral-equal Intubation Complications: no complications Post Intubation Xray: Yes no pneumothorax. 2 half centimeters above the jhon. Good intubation. While giving the etomidate patient did have some seizure-like activity and plantar job down. Her oxygen sats appeared to be around 86%. A nasal trumpet was placed and using a bag valve mask we were able to get her oxygen sats up to 100% in about 30 seconds. Rocuronium was pushed which terminated her seizure-like activity. We then intubated the patient successfully on first attempt using a ArthroCAD video 3 laryngoscope and a 7.5 ET tube. Not a lot of edema seen in the epiglottis. No obstructive tissue. And no vomitus or aspirate was visualized. We did witness the ET tube passing easily across the vocal cords which were only mildly edematous. We placed the ET tube at 24 at the gums and secured it in antonio ce. She had colorimetric capnography paper color change, fogging of the tube on exhalation, rise and fall of the chest, bilateral symmetric breath sounds are auscultated and no air sounds heard over the epigastric region. Nursing then placed a OG. Progress/Results/Core Measures Suspected Sepsis Recent Fever Within 48 Hours: No Infection Criteria Present: None New/Unexplained Altered Menta: No Sepsis Screen: No Definite Risk SIRS Temperature: Pulse: 72 Respiratory Rate: 22 Laboratory Tests 12/25/19 18:08: White Blood Count 10.3 Blood Pressure 197 /111 Mean: 139 12/25/19 18:30: Lactic Acid Level 3.67*H Laboratory Tests 12/25/19 18:08: Creatinine 1.35H, INR Comment 0.8, Platelet Count 245, Total Bilirubin 0.5 Results/Orders Lab Results Laboratory Tests Test 12/25/19 18:08 12/25/19 18:25 12/25/19 18:30 12/25/19 19:45 Range/Units White Blood Count 10.3 4.3-11.0 10^3/uL Red Blood Count 4.54 3.80-5.11 10^6/uL Hemoglobin 13.1 11.5-16.0 g/dL Hematocrit 39 35-52 % Mean Corpuscular Volume 86 80-99 fL Mean Corpuscular Hemoglobin 29 25-34 pg Mean Corpuscular Hemoglobin Concent 34 32-36 g/dL Red Cell Distribution Width 13.9 10.0-14.5 % Platelet Count 245 130-400 10^3/uL Mean Platelet Volume 11.0 9.0-12.2 fL Immature Granulocyte % (Auto) 1 % Neutrophils (%) (Auto) 52 42-75 % Lymphocytes (%) (Auto) 41 12-44 % Monocytes (%) (Auto) 5 0-12 % Eosinophils (%) (Auto) 2 0-10 % Basophils (%) (Auto) 0 0-10 % Neutrophils # (Auto) 5.3 1.8-7.8 10^3/uL Lymphocytes # (Auto) 4.2 H 1.0-4.0 10^3/uL Monocytes # (Auto) 0.5 0.0-1.0 10^3/uL Eosinophils # (Auto) 0.2 0.0-0.3 10^3/uL Basophils # (Auto) 0.0 0.0-0.1 10^3/uL Immature Granulocyte # (Auto) 0.1 0.0-0.1 10^3/uL Prothrombin Time 11.9 L 12.2-14.7 SEC INR Comment 0.8 0.8-1.4 Activated Partial Thromboplast Time 25 24-35 SEC D-Dimer 0.43 0.00-0.49 UG/ML Sodium Level 137 135-145 MMOL/L Potassium Level 3.9 3.6-5.0 MMOL/L Chloride Level 98 98-107 MMOL/L Carbon Dioxide Level 20 L 21-32 MMOL/L Anion Gap 19 H 5-14 MMOL/L Blood Urea Nitrogen 21 H 7-18 MG/DL Creatinine 1.35 H 0.60-1.30 MG/DL Estimat Glomerular Filtration Rate 39 BUN/Creatinine Ratio 16 Glucose Level 217 H 70-105 MG/DL Calcium Level 10.1 8.5-10.1 MG/DL Corrected Calcium 8.5-10.1 MG/DL Magnesium Level 1.8 1.6-2.4 MG/DL Total Bilirubin 0.5 0.1-1.0 MG/DL Aspartate Amino Transf (AST/SGOT) 45 H 5-34 U/L Alanine Aminotransferase (ALT/SGPT) 52 0-55 U/L Alkaline Phosphatase 55 40-136 U/L Myoglobin 44.9 10.0-92.0 NG/ML Troponin I < 0.028 <0.028 NG/ML B-Type Natriuretic Peptide 21.3 <100.0 PG/ML Total Protein 7.6 6.4-8.2 GM/DL Albumin 4.8 H 3.2-4.5 GM/DL Blood Gas Puncture Site LT RAD LEFT RADIAL Blood Gas Patient Temperature 97.8 36.2 Arterial Blood pH 7.56 H 7.55 H 7.37-7.43 Arterial Blood Partial Pressure CO2 23 L 21 L 35-45 MMHG Arterial Blood Partial Pressure O2 339 H 175 H 79-93 MMHG Arterial Blood HCO3 21 L 19 L 23-27 MMOL/L Arterial Blood Total CO2 21.5 19.2 L 21.0-31.0 MMOL/L Arterial Blood Oxygen Saturation 100 100 94-100 % Arterial Blood Base Excess -1.3 -3.8 L -2.5-2.5 MMOL/L Afshin Test POS YES-POS Blood Gas Ventilator Setting YES NO Blood Gas Inspired Oxygen 100 40% Lactic Acid Level 3.67 *H 0.50-2.00 MMOL/L My Orders Orders - TUYET SMITH Methylprednisolone Sod Succ (Solu-Medrol (12/25/19 18:11) Lactated Ringers (Lr 1000 Ml Iv Solution (12/25/19 18:11) Magnesium 1 Gm/100 Ml Ivpb (Magnesium Marino (12/25/19 18:13) Cbc With Automated Diff (12/25/19 18:18) Magnesium (12/25/19 18:18) Chest 1 View, Ap/Pa Only (12/25/19 18:18) Ekg Tracing (12/25/19 18:18) Comprehensive Metabolic Panel (12/25/19 18:18) Myoglobin Serum (12/25/19 18:18) Protime With Inr (12/25/19 18:18) Partial Thromboplastin Time (12/25/19 18:18) O2 (12/25/19 18:18) Monitor-Rhythm Ecg Trace Only (12/25/19 18:18) Ed Iv/Invasive Line Start (12/25/19 18:18) BNP (12/25/19 18:18) Fibrin Degradation Products (12/25/19 18:18) Nitroglycerin Ointment (Nitrobid Ointme (12/25/19 18:18) Aspirin Chewable Tablet (Baby Aspirin Ch (12/25/19 18:30) Morphine Injection (Morphine Injection (12/25/19 18:18) Lactated Ringers (Lr 1000 Ml Iv Solution (12/25/19 18:30) Magnesium 1 Gm/100 Ml Ivpb (Magnesium Marino (12/25/19 18:30) Methylprednisolone Sod Succ (Solu-Medrol (12/25/19 18:30) Cefepime Injection (Maxipime Injection) (12/25/19 18:30) Vancomycin Injection (Vancomycin Injecti (12/25/19 18:22) Blood Culture (12/25/19 18:22) Sputum Culture (12/25/19 18:22) Lactic Acid Analyzer (12/25/19 18:22) Bipap (Bilevel) Set Up (12/25/19 18:22) Nitroglycerin Ointment (Nitrobid Ointme (12/25/19 18:18) Arterial Blood Gas (12/25/19 18:29) Epinephrine 1 Mg Injection (Adrenalin I (12/25/19 18:45) Epinephrine 1 Mg Injection (Adrenalin I (12/25/19 18:33) Troponin I (12/25/19 18:08) Albuterol Pre-Mix Nebs (Rt) (Proventil (12/25/19 18:50) Ed Iv/Invasive Line Start (12/25/19 19:12) Ekg Tracing (12/25/19 19:12) Lactated Ringers (Lr 1000 Ml Iv Solution (12/25/19 19:15) Lactated Ringers (Lr 1000 Ml Iv Solution (12/25/19 19:12) Morphine Injection (Morphine Injection (12/25/19 19:21) Epinephrine 1 Mg Injection (Adrenalin I (12/25/19 19:45) Catheter(Urinary) Insert & Ass 03,15 (12/25/19 19:49) Arterial Blood Gas (12/25/19 19:45) Arterial Blood Gas (12/25/19 20:12) Propofol Injection (Diprivan Injection) (12/25/19 20:24) Propofol Drip (Icu) (Diprivan Drip (Icu) (12/25/19 20:25) Chest 1 View, Ap/Pa Only (12/25/19 20:39) Propofol Drip (Icu) (Diprivan Drip (Icu) (12/25/19 21:00) Rocuronium 5 Ml Syringe (Rocuronium 5 Ml (12/25/19 21:00) Etomidate Injection (Amidate Injection) (12/25/19 21:00) Medications Given in ED Current Medications Medications Dose Ordered Sig/Dominique Route Start Time Stop Time Status Last Admin Dose Admin Aspirin 324 mg ONCE ONCE PO 12/25/19 18:30 12/25/19 18:31 DC 12/25/19 19:21 324 MG Cefepime HCl 1000 mg/Sterile Water 10 ml @ 200 mls/hr ONCE ONCE IV 12/25/19 18:30 12/25/19 18:32 DC 12/25/19 18:23 200 MLS/HR Epinephrine HCl 0.3 mg ONCE ONCE IM 12/25/19 18:45 12/25/19 18:46 DC 12/25/19 18:39 0.3 MG Epinephrine HCl 0.3 mg ONCE ONCE IM 12/25/19 19:45 12/25/19 19:46 DC 12/25/19 19:37 0.3 MG Epinephrine HCl 1 mg STK-MED ONCE .ROUTE 12/25/19 18:33 12/25/19 18:38 DC 12/25/19 18:39 1 MG Lactated Ringer's 1,000 ml @ 0 mls/hr Q0M ONCE IV 12/25/19 19:12 12/25/19 19:14 DC 12/25/19 19:21 1,000 MLS/HR Magnesium Sulfate/ Dextrose 100 ml @ 100 mls/hr ONCE ONCE IV 12/25/19 18:30 12/25/19 19:29 DC 12/25/19 18:23 100 MLS/HR Methylprednisolone Sodium Succinate 125 mg ONCE ONCE IVP 12/25/19 18:30 12/25/19 18:31 DC 12/25/19 18:28 125 MG Nitroglycerin 1 inch STK-MED ONCE .ROUTE 12/25/19 18:18 12/25/19 18:23 DC 12/25/19 18:30 1 INCH Propofol 200 mg STK-MED ONCE IV 12/25/19 20:24 12/25/19 20:29 DC 12/25/19 20:40 200 MG Vancomycin HCl 2000 mg/Sodium Chloride 500 ml @ 260 mls/hr 1822 ONCE IV 12/25/19 18:22 12/25/19 20:17 DC 12/25/19 18:50 260 MLS/HR Vital Signs/I&O 12/25/19 12/25/19 12/25/19 12/25/19 18:09 18:12 19:06 19:12 Temp 36.6 Pulse 72 97 70 Resp 22 38 24 B/P (MAP) 197/111 (139) Pulse Ox 96 100 98 O2 Delivery OxyMask O2 Flow Rate 80.00 40.00 12/25/19 12/25/19 20:25 20:52 Pulse 98 80 Resp 16 18 Pulse Ox 92 95 FiO2 60 60 12/26/19 00:00 Intake Total 1110 ml Balance 1110 ml Capillary Refill : Less Than 3 Seconds Blood Pressure Mean: 139 Progress Note : Time: 20:52 Progress Note Spoke to Pablo, the patient's son and updated him on the situation. We did attenuate present to the people of 10, FiO2 60%, rate of 18, tidal volume 450 and she has except a blood pressures with a end-tidal CO2 of 32 and a SPO2 of 96%. Heart rate in the 70s and blood pressures starting to come back down 190s over 70s after propofol has been initiated. ABG and 20 minutes. ECG Initial ECG Impression Date: Dec 25, 2019 Initial ECG Impression Time: 18:10 Initial ECG Rate: 73 Initial ECG Rhythm: Normal Sinus Initial ECG Intervals: Normal Initial ECG Impression: Normal, Nonspecific Changes Initial ECG Comparisson: No Previous ECG Available Comment Normal sinus rhythm without clinically relevant ST elevation or depression. There is respiratory artifact. EKG : EKG Time: 19:23 Rate: 76 Rhythm: Normal Sinus Intervals: Normal ECG Comparisson: Unchanged ECG Impression: Normal Comment Normal sinus rhythm without clinically relevant ST elevation or depression. There is a half block depression seen in the lateral leads ST segment. Diagnostic Imaging Diagonstic Imaging: Xray Plain Films/CT/US/NM/MRI: chest Comments NAME: VALENTÍN ROWAN Becky MED REC#: [id number] PT STATUS: REG ER : 1950 PHYSICIAN: TUYET SMITH MD ADMIT DATE: 12/25/19/ER Draft Date of Exam:12/25/19 CHEST 1 VIEW, AP/PA ONLY INDICATION: COPD exacerbation. TECHNIQUE: Single view chest, 7:14 PM. CORRELATION STUDY: 03/11/2019. FINDINGS: Limited depth of inspiration. Given this, heart size is mildly enlarged. Vasculature is overall within normal limits. Minimal crowding at the lung bases, likely basilar atelectasis. No overt infiltrate. IMPRESSION: Hypoventilation with some crowding at the lung bases. No definitive consolidating infiltrate. Dictated on workstation # [id number] Dict: 12/25/191928 Trans: 12/25/191935 PJ [id number] Interpreted by: FERNY ESQUIVEL DO Electronically signed by: Reviewed: Reviewed by Me Diagonstic Imaging: Xray Plain Films/CT/US/NM/MRI: chest Comments NG tube to be advanced about 57 m. ET tube terminates about 2-1/2 cm above the jhon with no pneumothorax. NAME: VALENTÍN ROWAN [facility] REC#: [id number] PT STATUS: REG ER : 1950 PHYSICIAN: TUYET SMITH MD ADMIT DATE: 12/25/19/ER Draft Date of Exam:12/25/19 CHEST 1 VIEW, AP/PA ONLY INDICATION: Intubation. TECHNIQUE: Single view chest, 8:36 PM. CORRELATION STUDY: 12/25/2019. FINDINGS: Endotracheal tube has been placed. Tip projects over the trachea just above the level of the clavicles at the thoracic inlet. Heart size remains enlarged. There is now presence of what appears to be a component of vascular congestion and perihilar edema. Mediastinum is prominent. Scattered pulmonary parenchymal densities are present, adversely changed from prior study. This may be reflective of edema versus infiltrate. Probable bilateral pleural effusions. Gastric tube is also in place with tip passing into the left upper quadrant likely at the gastroesophageal junction, side-port likely proximal to the GE junction. IMPRESSION: 1. Interval intubation. Endotracheal tube tip at the level of the thoracic inlet. 2. Gastric tube has been placed with tip likely just at the level of the gastroesophageal junction. 3. Adverse change with what appears to be pulmonary vascular congestion and likely pulmonary edema. Superimposed infiltrate or aspiration could also account for some of the lung findings. Follow-up imaging recommended. Dictated on workstation # [id number] Dict: 12/25/192044 Trans: 12/25/192111 RICK [id number] Interpreted by: FERNY ESQUIVEL DO Electronically signed by: Reviewed: Reviewed by Me Critical Care Note Critical Care Start Time: 18:05 Stop Time: 19:00 Total Time (minutes) 55m Progress The patient presents in extremis complaining of pain across her chest and extreme work of breathing. Her oxygen sats were fine 99 -100% on her baseline 3 L. We initiated BiPAP and nitroglycerin paste because she give a history of CHF and heard rhonchorous bilateral breath sounds. An hour-long breathing treatment was also initiated which only started to give her a slight amount of relief. She was working very hard to breathe and we're poised to intubate her when she says she had a history of epiglottitis. We did give her 0.3 mg IM epinephrine which took away the upper airway rhonchorous sounds. She began to relax and breathe much easier. She is still breathing 20-25 breaths per minute which is an improvement over 35-40 breaths per minute when she presented. She is willing to be intubated if necessary. She is a full code. We did give her Solu-Medrol as well as broad-spectrum antibiotics cefepime and vancomycin and a liter of LR. Her ABG demonstrated that she had plenty of oxygen and was blowing off all of her CO2 and had a pH of 7.5. Suspect upper airway obstruction would be the source of this finding and since the epinephrine worked and she says she feels much better and is able to talk and complete complete sentences we are going to let her stay on the BiPAP for now and monitor her here in the ER for a while longer. Her lactate is up and her BUN is mildly elevated so we are going to give her another 2 L of fluids. She says she takes Lasix daily for her CHF so we want to be cautious about going under a fluid overload. Her blood pressure is still significant elevated at 190/100 so we'll keep the nitroglycerin paste on for now. Initial EKG did not show any ST changes. The EKG had artifacts are going to repeat that and the troponin is still pending. We'll have her chew and swallow aspirin. : The patient did receive a second dose of epinephrine and is beginning to have some stridorous lung sounds again. While she said she felt better she seemed to be wearing out so the decision was made to intubate her. She did finally acquiesce after we discussed risks, benefits and alternatives. A third dose of 0.3 mg of epinephrine was given IM and the patient was intubated. She did have seizure-like activity and almost immediately after giving the etomidate 20 mg for sedation. She does not have a history of seizures. Nor does she have a history of allergy to etomidate. We did successfully intubate her on the first attempt and are working to get her ventilation correct. Initially we started her at 14 breaths per minute, PEEP 5 and FiO2 of 40% tidal volume 450 mL. We have bumped her up to 16 breaths per minute at FiO2 of 60% and PEEP 7 because her oxygen sats were flagging in the upper 80s. This is improved her into the low to mid 90s. We will repeat an ABG in half an hour. Departure Communication (Admissions) Time/Spoke to Admitting Phy: 21:10 Discussed the case with Dr. Baker. She agrees with antibiotics, steroids and consult with eICU. Time/Spoke to Consulting Phy: 21:15 Discussed the case with the on-call eICU doctor. Impression Primary Impression: Glottitis Additional Impression: Acute and chronic respiratory failure Disposition: ADMITTED INPATIENT Condition: Critical Admissions Decision to Admit Reason: Admit from ER (General) Decision to Admit/Date: Dec 25, 2019 Time/Decision to Admit Time: 19:50 Departure-Patient Inst. Referrals: [facility] [place] (PCP) Primary Care Physician WILIAN ZALDIVAR APRN (Family) Primary Care Physician TUYET SMITH Dec 25, 2019 19:10
--- NOTE | 2019-12-25 19:13 | NUR ---
PHONE NUMBER [phone]-- MARCIA (SON)
[2019-12-25] MEDS ORDERED: morphine INJ 10 MG/ML 1ML (SYR OR VIAL) IVP STA (19:21)
--- NOTE | 2019-12-25 19:36 | Diagnostic Imaging Report ---
INDICATION: COPD exacerbation. TECHNIQUE: Single view chest, 7:14 PM. CORRELATION STUDY: 03/11/2019. FINDINGS: Limited depth of inspiration. Given this, heart size is mildly enlarged. Vasculature is overall within normal limits. Minimal crowding at the lung bases, likely basilar atelectasis. No overt infiltrate. IMPRESSION: Hypoventilation with some crowding at the lung bases. No definitive consolidating infiltrate. Dictated by: Dictated on workstation # [id number]
[2019-12-25 19:59] LABS: ABG BASE EXCESS -3.8 MMOL/L (-2.5-2.5); ABG OXYGEN SATURATION 100 % (94-100); ABG PCO2 21 MMHG (35-45); ABG PH 7.55 (7.37-7.43); ABG PO2 175 MMHG (79-93); ABG TCO2 19.2 MMOL/L (21.0-31.0); ALLENS TEST YES-POS; INSPIRED O2 40%; PATIENT TEMP 36.2; VENTILATOR NO
[2019-12-25] MEDS ORDERED: proPOfol 200 MG/20 ML (DIPRIVAN) VIAL IV ONE (20:24)
[2019-12-25 20:25] VITALS: BP 250/103
[2019-12-25] MEDS ORDERED: PROPOFOL DRIP (ICU) 100 ML IV ONE (20:25)
[2019-12-25 20:52] VITALS: BP 190/77
[2019-12-25] MEDS ORDERED: ROCURONIUM 10 MG/ML 5 ML SYRINGE IV ONE (21:00)
[2019-12-25] MEDS ORDERED: ETOMIDATE IV SOLN 20 MG/10 ML VIAL IV ONE (21:00)
[2019-12-25] MEDS ORDERED: PROPOFOL DRIP (ICU) 100 ML IV SCH (21:00)
--- NOTE | 2019-12-25 21:03 | NUR ---
2015 RT TO ROOM FOR INTUBATION 2019 .3MG EPI IM 2020 ETOMIDATE 20MG 2022 50MG TEJ 2024 7.5 @ GUMS, ETCO2 WITH COLOR METRIC, BILAT BREATH SOUNDS CLEAR 2030 OG PLACED 2031 XRAY AT BEDSIDE TO CONFIRM OG AND INTUBATION. WHEN GIVING FIRST 10MG OF ETOMINDATE, PT BEGAN SEIZURE-LIKE ACTIVITY, GAVE ANOTHER 10MG WITH TEJ AND PATIENT TOLERATED WELL. PATIENT NOW TOLERATING INTUBATION WELL. ON PROPOFOL DRIP AT 30ML
--- NOTE | 2019-12-25 21:13 | Diagnostic Imaging Report ---
INDICATION: Intubation. TECHNIQUE: Single view chest, 8:36 PM. CORRELATION STUDY: 12/25/2019. FINDINGS: Endotracheal tube has been placed. Tip projects over the trachea just above the level of the clavicles at the thoracic inlet. Heart size remains enlarged. There is now presence of what appears to be a component of vascular congestion and perihilar edema. Mediastinum is prominent. Scattered pulmonary parenchymal densities are present, adversely changed from prior study. This may be reflective of edema versus infiltrate. Probable bilateral pleural effusions. Gastric tube is also in place with tip passing into the left upper quadrant likely at the gastroesophageal junction, side-port likely proximal to the GE junction. IMPRESSION: 1. Interval intubation. Endotracheal tube tip at the level of the thoracic inlet. 2. Gastric tube has been placed with tip likely just at the level of the gastroesophageal junction. 3. Adverse change with what appears to be pulmonary vascular congestion and likely pulmonary edema. Superimposed infiltrate or aspiration could also account for some of the lung findings. Follow-up imaging recommended. Dictated by: Dictated on workstation # [id number]
[2019-12-25 21:48] LABS: ABG BASE EXCESS -3.6 MMOL/L (-2.5-2.5); ABG OXYGEN SATURATION 98 % (94-100); ABG PCO2 50 MMHG (35-45); ABG PO2 118 MMHG (79-93); ABG TCO2 23.8 MMOL/L (21.0-31.0)
[2019-12-25 21:51] LABS: ABG PH 7.27 (7.37-7.43); ALLENS TEST YES-POS; INSPIRED O2 3L; PATIENT TEMP 97.8; VENTILATOR NO
[2019-12-25] MEDS ORDERED: MIDAZOLAM 5 MG/5 ML (VERSED) VIAL ONE (22:46)
[2019-12-26] VITALS (34 sets, daily range): BP systolic 89–171; BP diastolic 42–81
[2019-12-26] MEDS ORDERED: ACETAMINOPHEN 650 MG SUPP (TYLENOL) PR PRN (00:15)
[2019-12-26] MEDS ORDERED: VASOPRESSIN 20 UNITS/NS 100 ML DRIP IV SCH ×2 (00:30)
[2019-12-26] MEDS ORDERED: PHARMACY TO DOSE IV ONE (00:30)
[2019-12-26] MEDS ORDERED: CEFEPIME INJECTION 1,000 MG in WATER (STERILE) FOR INJECTION 10 ML IV ONE (00:30)
[2019-12-26] MEDS: LACTATED RINGERS 1,000 ML IV SCH ×4 (01:15→20:42)
[2019-12-26] MEDS: PROPOFOL DRIP (ICU) 100 ML IV SCH ×9 (01:16→23:29)
[2019-12-26] MEDS: EPINEPHrine 1 MG INJECTION 4 MG in NS (IVPB) 246 ML IV SCH ×4 (01:28→20:42)
[2019-12-26] MEDS: NOREPINEPHRINE 4 MG/250 ML 250 ML IV SCH ×4 (01:28→20:43)
[2019-12-26] MEDS: methylPREDNISolone 40 MG/ML (Solu-MEDROL) VIAL IV SCH ×4 (01:31→16:55)
[2019-12-26] MEDS: ENOXAPARIN 40 MG/0.4 ML (LOVENOX) SYR SC SCH ×2 (01:31→20:39)
[2019-12-26 01:32] LABS: ABG BASE EXCESS -4.4 MMOL/L (-2.5-2.5); ABG OXYGEN SATURATION 78 % (94-100); ABG PCO2 46 MMHG (35-45); ABG PO2 56 MMHG (79-93); ABG TCO2 22.6 MMOL/L (21.0-31.0)
[2019-12-26 01:34] LABS: ABG PH 7.29 (7.37-7.43)
[2019-12-26 01:35] LABS: ALLENS TEST YES-POS; INSPIRED O2 60%; PATIENT TEMP 36.8; VENTILATOR YES
[2019-12-26] MEDS ORDERED: CEFEPIME 1 GM (MAXIPIME) VIAL ONE (02:21)
[2019-12-26] MEDS: WATER IV SCH ×3 (02:29→16:55)
[2019-12-26] MEDS: CEFEPIME IV SCH ×3 (02:29→16:55)
[2019-12-26 02:51] LABS: BASOPHILS % (AUTO) 0 % (0-10); EOSINOPHILS % (AUTO) 0 % (0-10); HEMATOCRIT 31 % (35-52); HEMOGLOBIN 10.3 g/dL (11.5-16.0); LYMPHOCYTES # (AUTO) 1.3 10^3/uL (1.0-4.0); LYMPHOCYTES % (AUTO) 15 % (12-44); MEAN CORPUSCULAR HEMOGLOBIN 29 pg (25-34); MEAN CORPUSCULAR HGB CONC 33 g/dL (32-36); MEAN CORPUSCULAR VOLUME 89 fL (80-99); MEAN PLATELET VOLUME 11.4 fL (9.0-12.2); MONOCYTES # (AUTO) 0.2 10^3/uL (0.0-1.0); MONOCYTES % (AUTO) 2 % (0-12); NEUTROPHILS # (AUTO) 7.2 10^3/uL (1.8-7.8); NEUTROPHILS % (AUTO) 82 % (42-75); PLATELET COUNT 172 10^3/uL (130-400); WHITE BLOOD COUNT 8.7 10^3/uL (4.3-11.0)
[2019-12-26 03:17] LABS: ALBUMIN 3.6 GM/DL (3.2-4.5); POTASSIUM 4.5 MMOL/L (3.6-5.0)
[2019-12-26 03:18] LABS: CALCIUM 8.2 MG/DL (8.5-10.1)
[2019-12-26 03:20] LABS: TOTAL PROTEIN 5.7 GM/DL (6.4-8.2)
[2019-12-26 03:21] LABS: BILIRUBIN,TOTAL 0.5 MG/DL (0.1-1.0)
[2019-12-26 03:23] LABS: PHOSPHORUS 4.7 MG/DL (2.3-4.7)
[2019-12-26 03:24] LABS: CREATININE SERUM 1.62 MG/DL (0.60-1.30)
[2019-12-26 03:26] LABS: MAGNESIUM 1.8 MG/DL (1.6-2.4)
[2019-12-26 03:31] LABS: BAND NEUTROPHILS 1 %; LYMPHOCYTES % (MANUAL) 11 %; MONOCYTES % (MANUAL) 1 %; NEUTROPHILS % (MANUAL) 87 %; RBC MORPH NORMAL
[2019-12-26] MEDS ORDERED: NS IV 1000 ML 1,000 ML IV SCH ×2 (03:50)
[2019-12-26] MEDS ORDERED: 1/2 NS IV SOLUTION 1,000 ML IV SCH (03:50)
[2019-12-26] MEDS ORDERED: POTASSIUM CL 10MEQ/50ML IVPB 50 ML IV SCH ×3 (04:00)
[2019-12-26] MEDS ORDERED: D5 1/2 NS 1000 ML IV SOLUTION 1,000 ML IV SCH (04:00)
[2019-12-26 05:06] LABS: HEMOGLOBIN 10.9 g/dL (11.5-16.0); MEAN PLATELET VOLUME 11.2 fL (9.0-12.2); WHITE BLOOD COUNT 9.3 10^3/uL (4.3-11.0)
[2019-12-26] MEDS: 1/2 NS IV SOLUTION 1,000 ML IV SCH ×5 (05:10→19:47)
[2019-12-26] MEDS: POTASSIUM CL 10MEQ/50ML IVPB 50 ML IV SCH ×10 (05:10→23:36)
[2019-12-26 05:15] LABS: POTASSIUM 4.8 MMOL/L (3.6-5.0)
[2019-12-26 05:16] LABS: CALCIUM 8.3 MG/DL (8.5-10.1)
[2019-12-26 05:20] LABS: CREATININE SERUM 1.68 MG/DL (0.60-1.30)
[2019-12-26 05:39] LABS: ABG BASE EXCESS -5.5 MMOL/L (-2.5-2.5); ABG OXYGEN SATURATION 99 % (94-100); ABG PCO2 40 MMHG (35-45); ABG PO2 166 MMHG (79-93); ABG TCO2 20.9 MMOL/L (21.0-31.0)
[2019-12-26] MEDS ORDERED: RT-ALBUTEROL/IPRATROPIUM 3 ML (DUONEB) VIAL INH PRN (05:45)
[2019-12-26 05:48] LABS: ABG PH 7.31 (7.37-7.43); ALLENS TEST YES-POS; INSPIRED O2 60%; PATIENT TEMP 36.9; VENTILATOR YES
[2019-12-26] MEDS ORDERED: RT-ALBUTEROL/IPRATROPIUM 3 ML (DUONEB) VIAL INH SCH (06:00)
--- NOTE | 2019-12-26 06:15 | History & Physical-Hospitalist ---
History of Present Illness HPI/Chief Complaint CC: Respiratory failure HPI: This is a 69yoWF clinic patient of [facility] who presented to the ER with dyspnea and unable to breathe with stridor like signs. Patient was urgently intubated to protect airway and central line was placed. Patient is currently awake and alert. She has a h/o trach from respiratory failure and multiple other issues. RN has no concerns. Lactic acid is elevated. Source: patient, RN/MD Exam Limitations: clinical condition (intubation) Date Seen 12/26/19 Time Seen by a Provider: 10:00 Attending Physician Argenis Baker DO [facility] [place] [facility] [place] Referring Physician Date of Admission Dec 25, 2019 at 21:15 Home Medications & Allergies Home Medications Reviewed patient Home Medication Reconciliation performed by pharmacy medication reconciliations digital cartographic technician and/or nursing. Patients Allergies have been reviewed. Allergies Allergies Coded Allergies dornase lloyd (Verified Allergy, Unknown, RAPID HEART BEAT, 03/23/17) Penicillins (Verified Adverse Reaction, Mild, NAUSEA, 03/23/17) codeine (Verified Adverse Reaction, Mild, NAUSEA, PT TAKES HYDROCODONE AT HOME, 03/23/17) etomidate (Verified Adverse Reaction, Unknown, seizures, 12/25/19) Past Sebiiyb-Umbcun-Wgbewl Hx Past Med/Social Hx: Reviewed Nursing Past Med/Soc Hx, Reviewed and Corrections made Patient Social History Marrital Status: Employed/Student: retired Alcohol Use: Denies Use Recreational Drug Use: No Smoking Status: Former Smoker Former Smoker, Quit: Jun 20, 2002 Type Used: Cigarettes 2nd Hand Smoke Exposure: No Recent Foreign Travel: No Contact w/other who traveled: No Recent Hopitalizations: No Recent Infectious Disease Expo: No Immunizations Up To Date Tetanus Booster (TDap): Unknown Pediatric: Yes Date of Pneumonia Vaccine: Feb 21, 2017 Date of Influenza Vaccine: Dec 15, 2017 Seasonal Allergies Seasonal Allergies: Yes Past Medical History Surgeries: Appendectomy, Gallbladder, 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, Orthopedic Respiratory: COPD, Pneumonia Currently Using CPAP: Yes Currently Using BIPAP: No Cardiac: Coronary Artery Disease, Hypertension 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: No Sexually Transmitted Disease: No 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, Menopausal Genitourinary: Kidney Stones Gastrointestinal: Gastroesophageal Reflux, Polyps Musculoskeletal: Arthritis, Fibromyalgia, Rheumatoid Arthritis, Chronic Back Pain Endocrine: Diabetes, Non-Insulin dep Loss of Vision: Denies Hearing Impairment: Denies Psychosocial: Anxiety, Depression History of Blood Disorders: No Adverse Reaction to Blood Garcia: No Family History Cancer 03 MOTHER (lung cancer 1987) Cardiovascular disease G8 BROTHER G8 SISTER Diabetes mellitus G8 SISTER Family history: Asthma 03 MOTHER Family history: Cardiovascular disease 03 FATHER Family history: Hypertension 03 MOTHER Family history: Osteoporosis 03 MOTHER History of - respiratory disease Hypertension G8 BROTHER G8 SISTER Respiratory disorder G8 BROTHER (LUNG CA) Stroke 03 MOTHER (1970,s stroke paraylsis lower extremies w/c ) Review of Systems Constitutional: see HPI, malaise, weakness EENTM: throat pain, throat swelling Respiratory: cough, dyspnea on exertion Physical Exam Physical Exam Vital Signs Vital Signs - First Documented 12/25/19 12/25/19 12/25/19 12/25/19 18:09 18:12 19:06 20:25 Temp 36.6 Pulse 72 Resp 22 B/P (MAP) 197/111 (139) Pulse Ox 96 O2 Delivery OxyMask O2 Flow Rate 80.00 FiO2 60 Capillary Refill : Less Than 3 Seconds Height, Weight, BMI Height: 5'7.50" Weight: 236lbs. 0.0oz. 107.364084uu; 34.00 BMI Method:Stated General Appearance: No Apparent Distress, Chronically ill Eyes: Right Eye Normal Inspection, Right Eye PERRL HEENT: PERRL/EOMI, Normal ENT Inspection, Pharynx Normal, Moist Mucous Membranes Neck: Full Range of Motion, Normal Inspection, Non Tender Respiratory: Chest Non Tender, Lungs Clear, Normal Breath Sounds, No Accessory Muscle Use, No Respiratory Distress, Decreased Breath Sounds, Other (on vent) Cardiovascular: Regular Rate, Rhythm, No Edema, No Gallop, No JVD, No Murmur, Normal Peripheral Pulses Gastrointestinal: Normal Bowel Sounds, No Organomegaly, No Pulsatile Mass, Non Tender, Soft Back: Normal Inspection, No CVA Tenderness, No Vertebral Tenderness Extremity: Normal Capillary Refill, Normal Inspection, Normal Range of Motion, Non Tender, No Calf Tenderness, No Pedal Edema Neurologic/Psychiatric: Alert, Oriented x3, No Motor/Sensory Deficits, Normal Mood/Affect, Other (can't speak due to intubation) Skin: Normal Color, Warm/Dry Lymphatic: No Adenopathy Results Results/Procedures Labs Laboratory Tests 12/25/19 18:08 12/26/19 02:41 12/26/19 04:57 12/26/19 08:36 12/26/19 12:00 Patient resulted labs reviewed. Assessment/Plan Admission Diagnosis Assessment: Strido Respiratory insufficiency requiring intubation Lactic acidosis CAD DM h/o trach Plan: Monitor closely Intubation IVF Admission Status: Inpatient Order (span 2 midnights) Reason for Inpatient Admission: resp failure and intubated Diagnosis/Problems Diagnosis/Problems (1) Glottitis Status: Acute (2) Acute and chronic respiratory failure (3) CAD (coronary artery disease) (4) SOB (shortness of breath) on exertion (5) COPD exacerbation Status: Acute (6) Laryngospasm Status: Acute (7) Tracheitis Status: Acute Clinical Quality Measures DVT/VTE Risk/Contraindication: Risk Factor Score Per Nursin RFS Level Per Nursing on Admit: 4+=Very High ARGENIS BAKER DO Dec 26, 2019 06:15
[2019-12-26] MEDS ORDERED: fentaNYL (OMNICELL DRIP KIT ONLY) 250 MCG/5 ML AMP ONE ×2 (06:39→07:53)
[2019-12-26] MEDS ORDERED: NS (IVPB) 100 ML ONE (06:39)
[2019-12-26] MEDS: KCL 20 MEQ TAB (K-DUR) PO SCH (06:46)
[2019-12-26] MEDS: MAGNESIUM 1 GM/100 ML IVPB 100 ML IV SCH (06:47)
--- NOTE | 2019-12-26 07:56 | Diagnostic Imaging Report ---
Indication: Central line placement. Comparison: 12/25/2019. Discussion: Single portable upright view of the chest was obtained. The enteric tube tip is near the GE junction, recommend advancement of 5-10 cm. Stable heart size. Patchy infiltrates are again noted, decreased from the prior. No pleural fluid or pneumothorax. Endotracheal tube is noted within the mid trachea in good position. Suspected new right IJ central venous catheter is partially visualized though the tip is in the proximal SVC. No osseous abnormality. Impression: 1. Enteric tube tip at the GE junction, recommend advancement. 2. Suspect new right IJ central venous catheter with tip in the proximal SVC, incompletely viewed. 3. Decreasing pulmonary infiltrates. Dictated by: Dictated on workstation # [id number]
[2019-12-26] MEDS: RT-ALBUTEROL INHALER HFA (VENTOLIN HFA) 18 GM IH SCH ×5 (08:10→22:25)
--- NOTE | 2019-12-26 08:15 | Diagnostic Imaging Report ---
INDICATION: Glottitis, intubation COMPARISON STUDY: Chest from 12/25/2019. FINDINGS: A portable upright view of the chest demonstrates an endotracheal tube remaining in good position. An orogastric tube transverses the radiograph. The 1st sidehole is in the distal esophagus and was present there before. Lungs are clear the heart and vascularity are normal. IMPRESSION: Life support tubes remain in place. No acute findings are seen to the chest. Dictated by: Dictated on workstation # [id number]
[2019-12-26 09:02] LABS: BILIRUBIN,URINE NEGATIVE (NEGATIVE); CLARITY,URINE CLEAR; COLOR,URINE YELLOW; GLUCOSE, URINE (UA) 1+ (NEGATIVE); KETONES,URINE TRACE (NEGATIVE); LEUKOCYTE ESTERASE ,URINE NEGATIVE (NEGATIVE); NITRITE,URINE NEGATIVE (NEGATIVE); PH,URINE 5.5 (5-9); PROTEIN,URINE NEGATIVE (NEGATIVE)
[2019-12-26 09:09] LABS: AMORPHOUS SEDIMENT,UR FEW AMOR URATES /LPF; BACTERIA,URINE TRACE /HPF; HYALINE CASTS, URINE RARE /LPF
[2019-12-26 09:10] LABS: ALBUMIN 3.7 GM/DL (3.2-4.5); POTASSIUM 4.2 MMOL/L (3.6-5.0)
[2019-12-26 09:11] LABS: CALCIUM 8.2 MG/DL (8.5-10.1)
[2019-12-26 09:12] LABS: TOTAL PROTEIN 6.5 GM/DL (6.4-8.2)
[2019-12-26 09:14] LABS: BILIRUBIN,TOTAL 0.4 MG/DL (0.1-1.0)
[2019-12-26 09:16] LABS: CREATININE SERUM 1.62 MG/DL (0.60-1.30)
[2019-12-26] MEDS: fentaNYL INJECTION 1,250 MCG in NS (IVPB) 250 ML IV SCH ×2 (09:46→17:19)
[2019-12-26] MEDS ORDERED: ROCURONIUM 10 MG/ML 5 ML SYRINGE IV ONE (10:17)
[2019-12-26] MEDS ORDERED: ETOMIDATE IV SOLN 20 MG/10 ML VIAL IV ONE (10:17)
[2019-12-26 12:34] LABS: POTASSIUM 4.2 MMOL/L (3.6-5.0)
[2019-12-26 12:39] LABS: CREATININE SERUM 1.41 MG/DL (0.60-1.30)
[2019-12-26] MEDS: D5 1/2 NS 1000 ML IV SOLUTION 1,000 ML IV SCH ×2 (15:33→22:46)
[2019-12-26] MEDS ORDERED: VANCOMYCIN 1500 MG/NS 500 ML IVPB IV SCH ×2 (17:00)
[2019-12-26] MEDS: FAMOTIDINE 20MG/2ML IV (PEPCID) IVP SCH (17:03)
[2019-12-26 20:25] LABS: POTASSIUM 4.4 MMOL/L (3.6-5.0)
[2019-12-26 20:26] LABS: CALCIUM 7.7 MG/DL (8.5-10.1)
[2019-12-26 20:31] LABS: CREATININE SERUM 1.15 MG/DL (0.60-1.30)
[2019-12-26] MEDS ORDERED: NORMAL SALINE 250 ML ONE (22:19)
[2019-12-26] MEDS ORDERED: inSUlin (REGULAR) HUMAN 1 UNIT/0.01 ML (CHARGE PER UNIT) ONE (22:20)
[2019-12-27] VITALS (26 sets, daily range): BP systolic 99–192; BP diastolic 56–100
[2019-12-27] MEDS: methylPREDNISolone 40 MG/ML (Solu-MEDROL) VIAL IV SCH ×4 (00:54→19:01)
[2019-12-27] MEDS: 1/2 NS IV SOLUTION 1,000 ML IV SCH ×2 (01:01→11:44)
[2019-12-27] MEDS: POTASSIUM CL 10MEQ/50ML IVPB 50 ML IV SCH ×4 (01:31→14:00)
[2019-12-27] MEDS: PROPOFOL DRIP (ICU) 100 ML IV SCH ×2 (01:59→04:41)
[2019-12-27] MEDS: WATER IV SCH ×4 (02:00→22:15)
[2019-12-27] MEDS: CEFEPIME IV SCH ×4 (02:00→22:15)
[2019-12-27] MEDS: D5 1/2 NS 1000 ML IV SOLUTION 1,000 ML IV SCH ×3 (02:08→11:47)
[2019-12-27 02:26] LABS: BASOPHILS % (AUTO) 0 % (0-10); EOSINOPHILS % (AUTO) 0 % (0-10); HEMATOCRIT 29 % (35-52); HEMOGLOBIN 9.7 g/dL (11.5-16.0); LYMPHOCYTES # (AUTO) 2.2 10^3/uL (1.0-4.0); LYMPHOCYTES % (AUTO) 16 % (12-44); MEAN CORPUSCULAR HEMOGLOBIN 30 pg (25-34); MEAN CORPUSCULAR HGB CONC 33 g/dL (32-36); MEAN CORPUSCULAR VOLUME 89 fL (80-99); MEAN PLATELET VOLUME 11.5 fL (9.0-12.2); MONOCYTES % (AUTO) 7 % (0-12); NEUTROPHILS # (AUTO) 10.7 10^3/uL (1.8-7.8); NEUTROPHILS % (AUTO) 76 % (42-75); PLATELET COUNT 206 10^3/uL (130-400)
[2019-12-27 02:40] LABS: POTASSIUM 4.9 MMOL/L (3.6-5.0)
[2019-12-27 02:41] LABS: CALCIUM 7.5 MG/DL (8.5-10.1)
[2019-12-27 02:46] LABS: CREATININE SERUM 1.03 MG/DL (0.60-1.30)
[2019-12-27 02:48] LABS: MAGNESIUM 1.5 MG/DL (1.6-2.4)
[2019-12-27] MEDS ORDERED: NS (IVPB) 100 ML ONE (02:54)
[2019-12-27] MEDS ORDERED: fentaNYL (OMNICELL DRIP KIT ONLY) 250 MCG/5 ML AMP ONE (02:54)
[2019-12-27] MEDS ORDERED: CEFEPIME 1 GM (MAXIPIME) VIAL ONE ×4 (02:55→21:58)
[2019-12-27] MEDS: RT-ALBUTEROL INHALER HFA (VENTOLIN HFA) 18 GM IH SCH ×5 (03:11→21:28)
[2019-12-27] MEDS: LACTATED RINGERS 1,000 ML IV SCH ×3 (03:25→16:23)
[2019-12-27 03:41] LABS: ABG BASE EXCESS -6.2 MMOL/L (-2.5-2.5); ABG OXYGEN SATURATION 81 % (94-100); ABG PCO2 44 MMHG (35-45); ABG PO2 50 MMHG (79-93); ABG TCO2 21.2 MMOL/L (21.0-31.0)
[2019-12-27 03:43] LABS: ABG PH 7.26 (7.37-7.43); ALLENS TEST YES-POS
[2019-12-27 03:44] LABS: INSPIRED O2 21%; PATIENT TEMP 36.2; VENTILATOR YES
[2019-12-27] MEDS ORDERED: SODIUM BICARB 8.4% 50 MEQ/50 ML VIAL IV ONE ×2 (04:15→05:15)
--- NOTE | 2019-12-27 05:10 | Pulmonary Consultation ---
History of Present Illness History of Present Illness Date Seen by Provider: Dec 27, 2019 Time Seen by Provider: 05:05 Date of Admission Allergies and Home Medications Allergies Coded Allergies: dornase lloyd (Verified Allergy, Unknown, RAPID HEART BEAT, 03/23/17) Penicillins (Verified Adverse Reaction, Mild, NAUSEA, 03/23/17) codeine (Verified Adverse Reaction, Mild, NAUSEA, PT TAKES HYDROCODONE AT HOME, 03/23/17) etomidate (Verified Adverse Reaction, Unknown, seizures, 12/25/19) Home Medications Albuterol Sulfate 18 Gm Hfa.aer.ad, 2 PUFF INH Q4H PRN for SHORTNESS OF BREATH, (Reported) Amitriptyline HCl 50 Mg Tablet, 50 MG PO HS, (Reported) Aspirin 81 Mg Tab.chew, 0 MG PO DAILY Prescribed by: RICKEY ROTH on 04/15/18 09 Atorvastatin Calcium 40 Mg Tablet, 40 MG PO HS, (Reported) Buprenorphine 1 Each Patch.tdwk, 1 PATCH TD Th, (Reported) Cetirizine HCl 10 Mg Tablet, 10 MG PO DAILY, (Reported) Cholecalciferol (Vitamin D3) 1,000 Unit Capsule, 1,000 UNIT PO DAILY, (Reported) Clopidogrel Bisulfate 75 Mg Tablet, 75 MG PO DAILY Prescribed by: RICKEY ROTH on 04/15/18 09 Cyclosporine 1 Each Droperette, 1 DROP OU BID PRN for DRY EYES, (Reported) Fenofibrate Nanocrystallized 145 Mg Tablet, 145 MG PO DAILY, (Reported) Fluticasone Propionate 16 Gm [place].susp, 2 SPRAYS NS DAILY, (Reported) Fluticasone/Salmeterol 1 Each Blst.w.dev, 1 PUFF IH BID, (Reported) Glimepiride 2 Mg Tablet, 2 MG PO BID, (Reported) Hydrocodone Bit/Acetaminophen 1 Each Tablet, 1 TAB PO QID PRN for PAIN-MODERATE, (Reported) Insulin Degludec 100 Unit/1 Ml Insuln.pen, 10 UNIT SQ DAILY, (Reported) Ipratropium/Albuterol Sulfate 3 Ml Ampul.neb, 3 ML NEB Q4H PRN for SHORTNESS OF BREATH, (Reported) Lisinopril 5 Mg Tablet, 5 MG PO DAILY, (Reported) Metformin HCl 500 Mg Tab.er.24h, 1,000 MG PO 1730, (Reported) TAKES 2 (500MG) TABLETS Metoprolol Succinate 25 Mg Tab.er.24h, 25 MG PO DAILY, (Reported) Montelukast Sodium 10 Mg Tablet, 10 MG PO HS, (Reported) Multivit-Min/FA/Lycopene/Lut 1 Each Tablet, 1 TAB PO DAILY, (Reported) [place]-3/Dha/Epa/Fish Oil 1 Each Capsule, 2,000 MG PO BID, (Reported) TAKES 2 (1000MG) CAPSULES Pantoprazole Sodium 40 Mg Tablet.dr, 40 MG PO BID, (Reported) Pregabalin 75 Mg Capsule, 75 MG PO TID, (Reported) Tiotropium [place] 1 Inh Aerp, 1 CAP IH DAILY, (Reported) Past Kdjlpmf-Mxbvdy-Tsrmkv Hx Past Med/Social Hx: Reviewed Nursing Past Med/Soc Hx, Reviewed and Corrections made Patient Social History Alcohol Use: Denies Use Recreational Drug Use: No Smoking Status: Former Smoker Type Used: Cigarettes Former Smoker, Quit: Jun 20, 2002 2nd Hand Smoke Exposure: No Recent Foreign Travel: No Contact w/Someone Who Travel: No Recent Infectious Disease Expo: No Recent Hopitalizations: No Immunizations Up To Date Tetanus Booster (TDap): Unknown PED Vaccines UTD: Yes Date of Pneumonia Vaccine: Feb 21, 2017 Date of Influenza Vaccine: Dec 15, 2017 Seasonal Allergies Seasonal Allergies: Yes Past Medical History Surgeries: Yes Appendectomy, Gallbladder, 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, Orthopedic Respiratory: Yes (02 at 3 l cont) Asthma, COPD Currently Using CPAP: Yes Currently Using BIPAP: No Cardiac: Yes Coronary Artery Disease, Hypertension Neurological: No 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, 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 Sexually Transmitted Disease: No Genitourinary: No Kidney Stones Gastrointestinal: Yes Gastroesophageal Reflux, Polyps Musculoskeletal: Yes (NECK PAIN, CERVICAL STENOSIS, CARPAL TUNNEL SYNDROME) Arthritis, Fibromyalgia, Rheumatoid Arthritis, Chronic Back Pain Endocrine: Yes Diabetes, Non-Insulin dep HEENT: Yes (VOCAL CORD SPASM/LARYNGOSPASM;GLASSES;DENTURES) Loss of Vision: Denies Hearing Impairment: Denies Cancer: No Psychosocial: Yes Anxiety, Depression Integumentary: No Blood Disorders: No Adverse Reaction/Blood Tranf: No Family Medical History Cancer 03 MOTHER (lung cancer 1987) Cardiovascular disease G8 BROTHER G8 SISTER Diabetes mellitus G8 SISTER Family history: Asthma 03 MOTHER Family history: Cardiovascular disease 03 FATHER Family history: Hypertension 03 MOTHER Family history: Osteoporosis 03 MOTHER History of - respiratory disease Hypertension G8 BROTHER G8 SISTER Respiratory disorder G8 BROTHER (LUNG CA) Stroke 03 MOTHER (1970,s stroke paraylsis lower extremies w/c ) Review of Systems Time Seen by Provider: 05:13 Sepsis Event Evaluation Height, Weight, BMI Height: 5'7.50" Weight: 236lbs. 0.0oz. [id number]; 34.00 BMI Method:Stated Exam Exam Vital Signs Date Time Temp Pulse Resp B/P (MAP) Pulse Ox O2 Delivery O2 Flow Rate FiO2 12/27/19 04:41 41 117/59 12/27/19 04:00 40 22 115/60 (78) 92 Mechanical Ventilator 21.00 12/27/19 04:00 Mechanical Ventilator 40 12/27/19 03:30 40 17 126/65 (85) 92 Mechanical Ventilator 21.00 12/27/19 03:11 39 22 98 40 12/27/19 03:00 40 17 139/68 (91) 98 Mechanical Ventilator 40.00 12/27/19 02:00 40 17 119/65 (83) 97 Mechanical Ventilator 40.00 12/27/19 01:59 40 115/61 12/27/19 01:00 41 12/27/19 01:00 41 21 113/62 (79) 98 Mechanical Ventilator 40.00 12/27/19 00:00 Mechanical Ventilator 40 12/27/19 00:00 42 21 107/56 (73) 97 Mechanical Ventilator 40.00 12/26/19 23:29 43 109/57 12/26/19 23:00 43 22 107/55 (72) 97 Mechanical Ventilator 40.00 12/26/19 22:25 43 22 96 40 12/26/19 22:00 44 22 111/55 (73) 96 Mechanical Ventilator 40.00 12/26/19 21:00 43 21 109/54 (72) 97 Mechanical Ventilator 40.00 12/26/19 20:41 44 112/54 12/26/19 20:00 43 21 121/60 (80) 97 Mechanical Ventilator 40.00 12/26/19 20:00 Mechanical Ventilator 40 12/26/19 19:52 44 21 96 40 12/26/19 19:00 44 12/26/19 19:00 44 21 121/57 (78) 96 Mechanical Ventilator 40.00 12/26/19 18:00 45 21 111/55 (73) 97 Mechanical Ventilator 40.00 12/26/19 17:00 46 22 113/54 (73) 96 Mechanical Ventilator 40.00 12/26/19 16:00 46 21 108/51 (70) 96 Mechanical Ventilator 40.00 12/26/19 16:00 Mechanical Ventilator 40 12/26/19 15:32 47 110/53 12/26/19 15:03 47 22 96 40 12/26/19 15:00 47 21 111/55 (73) 96 Mechanical Ventilator 40.00 12/26/19 14:00 48 27 116/57 (76) 96 Mechanical Ventilator 40.00 12/26/19 13:20 58 107/61 12/26/19 13:00 48 12/26/19 13:00 48 22 116/51 (72) 96 Mechanical Ventilator 40.00 12/26/19 12:00 48 21 106/50 (68) 96 Mechanical Ventilator 40.00 12/26/19 12:00 96 Mechanical Ventilator 40 12/26/19 11:04 37.0 12/26/19 11:00 63 22 127/80 (96) 97 Mechanical Ventilator 40.00 12/26/19 10:04 52 116/44 12/26/19 10:00 52 21 116/44 (68) 96 Mechanical Ventilator 40.00 12/26/19 09:00 54 21 116/48 (70) 96 Mechanical Ventilator 40.00 12/26/19 08:32 37.0 Mechanical Ventilator 40.00 12/26/19 08:10 53 23 97 50 12/26/19 08:00 51 22 110/44 (66) 96 Mechanical Ventilator 50.00 12/26/19 08:00 96 Mechanical Ventilator 40 12/26/19 07:00 51 12/26/19 07:00 51 22 115/45 (68) 97 Mechanical Ventilator 50.00 12/26/19 06:36 60 127/75 12/26/19 06:00 52 21 100/45 (63) 96 Mechanical Ventilator 50.00 12/26/19 05:30 Mechanical Ventilator 50.00 I & O 12/27/19 07:00 Intake Total 0 ml Output Total 975 ml Balance -975 ml Height & Weight Height: 5'7.50" Weight: 236lbs. 0.0oz. 107.187446sg; 34.00 BMI Method:Stated General Appearance: No Apparent Distress, Chronically ill HEENT: PERRL/EOMI, Normal ENT Inspection, Pharynx Normal, Moist Mucous Membr anes Neck: Full Range of Motion, Normal Inspection, Non Tender Respiratory: Chest Non Tender, Lungs Clear, Normal Breath Sounds, No Accessory Muscle Use, No Respiratory Distress, Decreased Breath Sounds, Other (on vent) Cardiovascular: Regular Rate, Rhythm, No Edema, No Gallop, No JVD, No Murmur, Normal Peripheral Pulses Capillary Refill: Less Than 3 Seconds Gastrointestinal: normal bowel sounds, non tender, soft Extremity: Normal Capillary Refill, Normal Inspection, Normal Range of Motion, Non Tender, No Calf Tenderness, No Pedal Edema Neurologic/Psychiatric: Alert, Oriented x3, No Motor/Sensory Deficits, Normal Mood/Affect, Other (can't speak due to intubation) Skin: Normal Color, Warm/Dry Lymphatic: No Adenopathy Results Lab Laboratory Tests 12/25/19 18:08 12/26/19 02:41 12/26/19 04:57 12/26/19 08:36 12/26/19 12:00 12/26/19 19:50 12/27/19 02:05 Assessment/Plan Assessment/Plan Acute respiratory failure -Pt was intubated while in the ED -Will proceed with extubation to Vapotherm. 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 - -Hx of tracheostomy Metabolic acidosis -Give 2 amps of bicarb HX of vocal cord spasms CAD MILE WOOD DO Dec 27, 2019 05:10
--- NOTE | 2019-12-27 05:15 | NUR ---
0515 PATIENT EXTUBATED, FOLLOWED INSTRUCTIONS, COUGHED AND SPEAKING; VAPOTHERM 30L 100%, TITRATED DOWN TO 15L 30%. RESTRAINTS REMOVED AT 0515.
[2019-12-27] MEDS: EPINEPHrine 1 MG INJECTION 4 MG in NS (IVPB) 246 ML IV SCH ×3 (06:10→18:05)
[2019-12-27] MEDS: NOREPINEPHRINE 4 MG/250 ML 250 ML IV SCH ×3 (06:10→18:05)
[2019-12-27] MEDS: KCL 20 MEQ TAB (K-DUR) PO SCH (06:11)
[2019-12-27 07:11] LABS: POTASSIUM 4.5 MMOL/L (3.6-5.0)
[2019-12-27 07:12] LABS: CALCIUM 7.7 MG/DL (8.5-10.1)
[2019-12-27 07:17] LABS: CREATININE SERUM 1.03 MG/DL (0.60-1.30)
--- NOTE | 2019-12-27 08:08 | NUR ---
0350 OUT OF STOCKED INSULIN FOR DKA PATIENT, MIXED BAG WITH CANDIDO BARRETT RN TO VERIFY.
[2019-12-27] MEDS: MAGNESIUM 1 GM/100 ML IVPB 100 ML IV SCH ×2 (09:31→10:34)
[2019-12-27] MEDS: FAMOTIDINE 20MG/2ML IV (PEPCID) IVP SCH (09:31)
[2019-12-27] MEDS ORDERED: ENOXAPARIN 40 MG/0.4 ML (LOVENOX) SYR SC SCH (10:30)
--- NOTE | 2019-12-27 10:40 | Progress Note - Hospitalist ---
Subjective HPI/CC On Admission Date Seen by Provider: Dec 27, 2019 Time Seen by Provider: 09:00 CC: Respiratory failure HPI: This is a 69yoWF clinic patient of [facility] who presented to the ER with dyspnea and unable to breathe with stridor like signs. Patient was urgently intubated to protect airway and central line was placed. Patient is currently awake and alert. She has a h/o trach from respiratory failure and multiple other issues. RN has no concerns. Lactic acid is elevated. Subjective/Events-last exam Will DC Metformin due to elevated lactic acid that continued for severe all days after admission Off insulin drip Extubated today by Dr. Reid On high flow 5 liters Oxygen at home is 3-4 liters Covid swab is pending still Wants to go home soon Review of Systems General: Fatigue, Malaise Neurological: Weakness Focused Exam Lactate Level 12/26/19 17:00: Lactic Acid Level 2.32*H 12/26/19 19:50: Lactic Acid Level 2.32*H 12/26/19 22:43: Lactic Acid Level 1.91 Objective Exam Vital Signs Vital Signs Date Time Temp Pulse Resp B/P (MAP) Pulse Ox O2 Delivery O2 Flow Rate FiO2 12/27/19 21:00 36.8 12/27/19 18:00 70 19 184/95 (124) 96 High Flow N/C 5.00 12/27/19 07:25 30 Capillary Refill : Less Than 3 Seconds General Appearance: No Apparent Distress, WD/WN, Chronically ill Respiratory: Normal Breath Sounds Cardiovascular: Regular Rate, Rhythm Neurologic/Psychiatric: Alert, Oriented x3 Results/Procedures Lab Laboratory Tests 12/27/19 02:05 12/27/19 06:30 Patient resulted labs reviewed. Assessment/Plan Assessment and Plan Assess & Plan/Chief Complaint Assessment: Strido Respiratory insufficiency requiring intubation Lactic acidosis CAD DM h/o trach Plan: Monitor closely Intubation IVF 12/27/19: Discontinue Metformin Extubated successfully today High flow oxygen COVID swab pending Diagnosis/Problems Diagnosis/Problems (1) Glottitis Status: Acute (2) Acute and chronic respiratory failure (3) CAD (coronary artery disease) (4) SOB (shortness of breath) on exertion (5) COPD exacerbation Status: Acute (6) Laryngospasm Status: Acute (7) Tracheitis Status: Acute Clinical Quality Measures DVT/VTE Risk/Contraindication: Risk Factor Score Per Nursin RFS Level Per Nursing on Admit: 4+=Very High FRANTZ GROVE DO Dec 27, 2019 10:40
--- NOTE | 2019-12-27 10:53 | ST Dysphagia Evaluation ---
Speech Evaluation-General Medical Diagnosis Glottitis Onset Date: Dec 25, 2019 Therapy Diagnosis Therapy Diagnosis: Oropharyngeal Dysphagia Precautions Precautions: Aspiration Referral Referring Physician: Dr. Reid Reason for Referral: Evaluation/Treatment (r. ) Medical History Pertinent Medical History: CAD, COPD, DM, HTN, Neuropathy, OA Speech PLF/Current-Dysphagia Cognitive Status Patient Orientation: Person, Situation Oral Motor Skills Denture Type: Full- Upper & Lower Ability to Follow Directions: Good Patient was NPO pending BDE. Oral Expression Ability: No Impairment Voice Voice Phonatory-Based Quality: Hoarse, Weak Voice Pitch: Normal Voice Loudness: Mildly Soft/Quiet Face Facial Symmetry: Symmetrical Oral-Facial Assessment Oral-Facial Dentition: Normal Smile: Normal Puff Cheeks: Reduced Strength Lingual Protrusion: Normal Lingual ROM: Normal Lingual Strength: Normal Pharynx Velopharyngeal Move.: Normal Volitional Dry Swallow: Yes Voluntary Cough: Yes Can Clear Throat Volitionally: Yes Dysphagia Evaluation Consistencies Presented: Regular, Thin Liquid, Mechanical Soft, Pureed Oral phase is within normal range of function for all consistencies presented. Pharyngeal phase is within normal range of function for all consistencies presented. Dietary Recommendations: Regular Liquid Recommendations: Thin Swallowing Precautions: Alternate Liquids/Solids, Liquids from Straw, Small Bites and Sips, Sitting Upright 90 Degrees, Sitting 90 Degrees 30 Post Intake Dysphagia Evaluation Summary Patient is a pleasant 69 y/o female who was admitted to the ICU via ER. Patient was intubated during the ER process due to difficulty breathing. Patient was extubated this morning. Patient was seen at bedside for the BDE. Patient was presented thin liquids via 1/2 tsp x2 and small sips via straw x2 without difficulty. Patient was also presented 1/2 tsp bite size of puree, mechanical soft and regular without difficulty. Patient is recommended for regular diet level with thin liquids. This information was provided to her nurse as well as written on the white board in her room. Speech-Plan Patient/Family Goals Patient/Family Goals: Patient plans on returning to her home upon discharge. Treatment Plan Speech Therapy Treatment Plan: Discontinue ST Treatment Duration: Dec 27, 2019 Frequency: 1 time per week Estimated Hrs Per Day: .5 hour per day Rehab Potential: Good Barriers to Learning: None identified Pt/Family Agrees to Plan: Yes Safety Risks/Education Teaching Recipient: Patient Teaching Methods: Discussion Response to Teaching: Verbalize Understanding Education Topics Provided: Safety with oral intake, diet level Time Speech Therapy Time In: 09:05 Speech Therapy Time Out: 09:28 Total Billed Time: 23 Billed Treatment Time 1, PINA LOREDO [address] Dec 27, 2019 10:53
[2019-12-27] MEDS: ENOXAPARIN 40 MG/0.4 ML (LOVENOX) SYR SC SCH (11:32)
[2019-12-27] MEDS: hydrALAZINE (APESOLINE) 20 MG/ML VIAL IV PRN ×2 (13:59→22:18)
[2019-12-27] MEDS: inSUlin ASPART (NovoLOG) 1 UNIT/0.01 ML (CHARGE PER UNIT) SQ SCH ×2 (16:21→22:14)
[2019-12-27] MEDS: lisINopril 5 MG (PRINIVIL) TABLET PO SCH (16:21)
[2019-12-27] MEDS: HYDROcodone/APAP 10 MG/325 MG (LORTAB) TAB PO PRN ×2 (16:22→22:20)
[2019-12-27] MEDS ORDERED: FUROSEMIDE 40 MG/4 ML INJ (LASIX) IVP NR (16:30)
[2019-12-28] VITALS (17 sets, daily range): BP systolic 160–217; BP diastolic 63–93
[2019-12-28] MEDS: LACTATED RINGERS 1,000 ML IV SCH ×2 (01:00→04:55)
[2019-12-28] MEDS: HYDROcodone/APAP 10 MG/325 MG (LORTAB) TAB PO PRN ×4 (01:40→21:50)
[2019-12-28 01:52] LABS: BASOPHILS % (AUTO) 0 % (0-10); EOSINOPHILS % (AUTO) 0 % (0-10); HEMATOCRIT 32 % (35-52); LYMPHOCYTES # (AUTO) 1.2 10^3/uL (1.0-4.0); LYMPHOCYTES % (AUTO) 10 % (12-44); MEAN CORPUSCULAR HEMOGLOBIN 29 pg (25-34); MEAN CORPUSCULAR HGB CONC 34 g/dL (32-36); MEAN CORPUSCULAR VOLUME 86 fL (80-99); MEAN PLATELET VOLUME 11.1 fL (9.0-12.2); MONOCYTES # (AUTO) 0.8 10^3/uL (0.0-1.0); MONOCYTES % (AUTO) 6 % (0-12); NEUTROPHILS # (AUTO) 10.1 10^3/uL (1.8-7.8); NEUTROPHILS % (AUTO) 80 % (42-75); PLATELET COUNT 168 10^3/uL (130-400); WHITE BLOOD COUNT 12.6 10^3/uL (4.3-11.0)
[2019-12-28 02:01] LABS: POTASSIUM 4.4 MMOL/L (3.6-5.0)
[2019-12-28 02:02] LABS: CALCIUM 8.4 MG/DL (8.5-10.1)
[2019-12-28 02:07] LABS: CREATININE SERUM 1.1 MG/DL (0.60-1.30); PHOSPHORUS 3.3 MG/DL (2.3-4.7)
[2019-12-28 02:09] LABS: MAGNESIUM 2.2 MG/DL (1.6-2.4)
[2019-12-28] MEDS: NOREPINEPHRINE 4 MG/250 ML 250 ML IV SCH (02:14)
[2019-12-28] MEDS: EPINEPHrine 1 MG INJECTION 4 MG in NS (IVPB) 246 ML IV SCH (02:14)
[2019-12-28] MEDS: RT-ALBUTEROL INHALER HFA (VENTOLIN HFA) 18 GM IH SCH ×6 (02:15→21:32)
[2019-12-28] MEDS: POTASSIUM CL 10MEQ/50ML IVPB 50 ML IV SCH (04:57)
[2019-12-28] MEDS: MAGNESIUM 1 GM/100 ML IVPB 100 ML IV SCH (04:58)
[2019-12-28] MEDS: CEFEPIME IV SCH ×6 (04:59→21:49)
[2019-12-28] MEDS: KCL 20 MEQ TAB (K-DUR) PO SCH (04:59)
[2019-12-28] MEDS: WATER IV SCH ×6 (04:59→21:49)
[2019-12-28] MEDS ORDERED: CEFEPIME 1 GM (MAXIPIME) VIAL ONE ×2 (05:00→10:26)
[2019-12-28] MEDS ORDERED: WATER (STERILE) FOR INJECTION 10 ML ONE ×2 (05:00→10:26)
[2019-12-28] MEDS: inSUlin ASPART (NovoLOG) 1 UNIT/0.01 ML (CHARGE PER UNIT) SQ SCH ×4 (05:13→21:49)
[2019-12-28] MEDS: methylPREDNISolone 40 MG/ML (Solu-MEDROL) VIAL IV SCH ×4 (05:13→17:51)
--- NOTE | 2019-12-28 05:15 | Pulmonary Progress Note ---
Subjective Time Seen by a Provider: 05:15 Sepsis Event Evaluation Height, Weight, BMI Height: 5'7.50" Weight: 236lbs. 0.0oz. 107.752900gg; 34.00 BMI Method:Stated Focused Exam Lactate Level 12/26/19 17:00: Lactic Acid Level 2.32*H 12/26/19 19:50: Lactic Acid Level 2.32*H 12/26/19 22:43: Lactic Acid Level 1.91 Exam Exam Vital Signs Date Time Temp Pulse Resp B/P (MAP) Pulse Ox O2 Delivery O2 Flow Rate FiO2 12/28/19 04:25 70 25 194/75 (114) 96 Nasal Cannula 2.00 12/28/19 03:47 Nasal Cannula 2.00 12/28/19 03:05 67 10 95 Nasal Cannula 2.00 12/28/19 03:00 70 11 171/74 (106) 92 High Flow N/C 2.00 12/28/19 02:54 99 High Flow N/C 2.00 12/28/19 02:00 66 13 173/73 (106) 95 High Flow N/C 2.00 12/28/19 01:38 72 14 186/83 (117) 96 High Flow N/C 2.00 12/28/19 01:03 75 12/28/19 01:00 75 19 96 High Flow N/C 2.00 12/28/19 00:01 36.8 12/28/19 00:00 High Flow N/C 2.00 12/28/19 00:00 78 12 190/81 (117) 94 High Flow N/C 2.00 12/27/19 23:00 79 12 181/72 (108) 95 High Flow N/C 2.00 12/27/19 22:21 High Flow N/C 2.00 12/27/19 22:00 74 10 172/74 (106) 98 High Flow N/C 3.00 12/27/19 21:32 99 High Flow N/C 5.00 12/27/19 21:00 67 12 168/76 (106) 100 High Flow N/C 3.00 12/27/19 21:00 36.8 12/27/19 20:00 69 12 162/72 (102) 96 High Flow N/C 3.00 12/27/19 20:00 High Flow N/C 3.00 12/27/19 20:00 High Flow N/C 3.00 12/27/19 19:35 99 High Flow N/C 5.00 12/27/19 19:06 76 33 192/92 (125) 97 High Flow N/C 4.00 12/27/19 19:00 High Flow N/C 4.00 12/27/19 19:00 72 12/27/19 18:00 70 19 184/95 (124) 96 High Flow N/C 5.00 12/27/19 16:00 73 13 181/79 (113) 96 High Flow N/C 5.00 12/27/19 16:00 High Flow N/C 4.00 12/27/19 15:00 79 27 185/79 (114) 96 High Flow N/C 5.00 12/27/19 14:00 82 17 170/79 (109) 95 High Flow N/C 5.00 12/27/19 13:00 85 15 171/85 (113) 95 High Flow N/C 5.00 12/27/19 12:47 84 12/27/19 12:00 75 17 180/81 (114) High Flow N/C 5.00 12/27/19 12:00 High Flow N/C 4.00 12/27/19 11:00 71 23 182/75 (110) 95 High Flow N/C 5.00 12/27/19 10:00 70 39 168/100 (122) 96 High Flow N/C 5.00 12/27/19 09:00 65 18 172/76 (108) 96 High Flow N/C 5.00 12/27/19 08:00 High Flow N/C 4.00 12/27/19 08:00 74 11 173/73 (106) 96 High Flow N/C 5.00 12/27/19 07:44 High Flow N/C 5.00 12/27/19 07:25 94 Vapotherm 15.00 30 12/27/19 07:00 64 8 99/98 (98) 97 Vapotherm 30.00 50.00 12/27/19 06:40 66 12/27/19 06:15 70 11 170/76 (107) 94 Vapotherm 30.00 50.00 12/27/19 05:36 95 Vapotherm 30.00 50 I & O0 12/28/19 07:00 Intake Total 2920 ml Output Total 5550 ml Balance -2630 ml Height & Weight Height: 5'7.50" Weight: 236lbs. 0.0oz. 107.986343cd; 34.00 BMI Method:Stated General Appearance: No Apparent Distress, WD/WN, Chronically ill HEENT: PERRL/EOMI, Normal ENT Inspection, Pharynx Normal, Moist Mucous Membr anes Neck: Full Range of Motion, Normal Inspection, Non Tender Respiratory: Normal Breath Sounds Cardiovascular: Regular Rate, Rhythm Capillary Refill: Less Than 3 Seconds Gastrointestinal: normal bowel sounds, non tender, soft Extremity: Normal Capillary Refill, Normal Inspection, Normal Range of Motion, Non Tender, No Calf Tenderness, No Pedal Edema Neurologic/Psychiatric: Alert, Oriented x3 Skin: Normal Color, Warm/Dry Lymphatic: No Adenopathy Results Lab Laboratory Tests 12/26/19 08:36 12/26/19 12:00 12/26/19 19:50 12/27/19 02:05 12/27/19 06:30 12/28/19 01:43 Assessment/Plan Assessment/Plan Acute respiratory failure -Pt was intubated while in the ED -Will proceed with extubation to Vapotherm. 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 - -Hx of tracheostomy Metabolic acidosis -Give 2 amps of bicarb HX of vocal cord spasms MILE OROZCO DO Dec 28, 2019 05:15
[2019-12-28] MEDS: lisINopril 5 MG (PRINIVIL) TABLET PO SCH (08:05)
[2019-12-28] MEDS: FAMOTIDINE 20MG/2ML IV (PEPCID) IVP SCH (08:05)
[2019-12-28] MEDS ORDERED: ENOXAPARIN 40 MG/0.4 ML (LOVENOX) SYR SC SCH (09:00)
--- NOTE | 2019-12-28 09:11 | Progress Note - Hospitalist ---
Subjective HPI/CC On Admission Date Seen by Provider: Dec 28, 2019 Time Seen by Provider: 09:00 CC: Respiratory failure HPI: This is a 69yoWF clinic patient of [facility] who presented to the ER with dyspnea and unable to breathe with stridor like signs. Patient was urgently intubated to protect airway and central line was placed. Patient is currently awake and alert. She has a h/o trach from respiratory failure and multiple other issues. RN has no concerns. Lactic acid is elevated. Subjective/Events-last exam Pt doing pretty well except for swollen nodes I did evaluate her lymphadenopathy to be significant, so I will test her for mumps She had mumps as a child Will transfer down to fourth floor per Dr. Reid Likely discharge tomorrow Diarrhea is significant so will monitor that closely Review of Systems General: Fatigue, Malaise Neurological: Weakness Focused Exam Lactate Level 12/26/19 17:00: Lactic Acid Level 2.32*H 12/26/19 19:50: Lactic Acid Level 2.32*H 12/26/19 22:43: Lactic Acid Level 1.91 Objective Exam Vital Signs Vital Signs Date Time Temp Pulse Resp B/P (MAP) Pulse Ox O2 Delivery O2 Flow Rate FiO2 12/29/19 04:26 36.5 91 21 160/78 (105) 95 Nasal Cannula 3.00 12/27/19 07:25 30 Capillary Refill : Less Than 3 Seconds General Appearance: No Apparent Distress, WD/WN, Chronically ill Neck: Lymphadenopathy (L), Lymphadenopathy (R) Respiratory: Lungs Clear, Normal Breath Sounds, No Accessory Muscle Use, No Respiratory Distress Cardiovascular: Regular Rate, Rhythm Neurologic/Psychiatric: Alert, Oriented x3 Results/Procedures Lab Patient resulted labs reviewed. Assessment/Plan Assessment and Plan Assess & Plan/Chief Complaint Assessment: Strido Respiratory insufficiency requiring intubation Lactic acidosis CAD DM h/o trach Plan: Monitor closely Intubation IVF 12/27/19: Discontinue Metformin Extubated successfully today High flow oxygen COVID swab pending 12/28/19: Follow up on Mumps lab work Transfer to 4th floor Monitor diarrhea Tentative discharge planned for tomorrow Diagnosis/Problems Diagnosis/Problems (1) Glottitis Status: Acute (2) Acute and chronic respiratory failure (3) CAD (coronary artery disease) (4) SOB (shortness of breath) on exertion (5) COPD exacerbation Status: Acute (6) Laryngospasm Status: Acute (7) Tracheitis Status: Acute Clinical Quality Measures DVT/VTE Risk/Contraindication: Risk Factor Score Per Nursin RFS Level Per Nursing on Admit: 4+=Very High FRATNZ GROVE DO Dec 28, 2019 09:11
--- NOTE | 2019-12-28 10:20 | NUR ---
THIS NURSE CALLED REPORT TO JOSIAH RICHARD. PT TAKEN DOWN VIA WHEELCHAIR WITH BELONGINGS.
[2019-12-28] MEDS: ENOXAPARIN 40 MG/0.4 ML (LOVENOX) SYR SC SCH ×3 (10:31→21:50)
--- NOTE | 2019-12-28 10:45 | NUR ---
PT ARRIVED TO FLOOR FROM ICU, REPORT RECEIVED FROM ELEAZAR RICHARD
[2019-12-28] MEDS: hydrALAZINE (APESOLINE) 20 MG/ML VIAL IV PRN ×2 (12:02→17:51)
--- NOTE | 2019-12-28 12:22 | NUR ---
RECEIVED VERBAL ORDER FROM DR GROVE TO GIVE PRN PAIN MED EARLY.
[2019-12-28] MEDS: ONDANSETRON 4 MG/2 ML (SDV) Z0FRAN IV PRN ×2 (13:15→21:50)
[2019-12-29] MEDS: methylPREDNISolone 40 MG/ML (Solu-MEDROL) VIAL IV SCH ×3 (00:20→12:10)
[2019-12-29 00:33] VITALS: BP 158/62
[2019-12-29] MEDS: RT-ALBUTEROL INHALER HFA (VENTOLIN HFA) 18 GM IH SCH ×3 (01:42→10:32)
[2019-12-29 04:26] VITALS: BP 160/78
[2019-12-29] MEDS: WATER IV SCH ×2 (04:56→11:53)
[2019-12-29] MEDS: CEFEPIME IV SCH ×2 (04:56→11:53)
[2019-12-29 05:01] LABS: BASOPHILS % (AUTO) 0 % (0-10); EOSINOPHILS % (AUTO) 0 % (0-10); HEMATOCRIT 31 % (35-52); HEMOGLOBIN 10.3 g/dL (11.5-16.0); LYMPHOCYTES # (AUTO) 1.3 10^3/uL (1.0-4.0); LYMPHOCYTES % (AUTO) 15 % (12-44); MEAN CORPUSCULAR HEMOGLOBIN 29 pg (25-34); MEAN CORPUSCULAR HGB CONC 33 g/dL (32-36); MEAN CORPUSCULAR VOLUME 87 fL (80-99); MEAN PLATELET VOLUME 10.8 fL (9.0-12.2); MONOCYTES # (AUTO) 0.6 10^3/uL (0.0-1.0); MONOCYTES % (AUTO) 7 % (0-12); NEUTROPHILS # (AUTO) 6.5 10^3/uL (1.8-7.8); NEUTROPHILS % (AUTO) 74 % (42-75); PLATELET COUNT 165 10^3/uL (130-400); WHITE BLOOD COUNT 8.8 10^3/uL (4.3-11.0)
[2019-12-29 05:12] LABS: POTASSIUM 4.5 MMOL/L (3.6-5.0)
[2019-12-29 05:13] LABS: CALCIUM 8.5 MG/DL (8.5-10.1)
[2019-12-29 05:20] LABS: MAGNESIUM 2.4 MG/DL (1.6-2.4)
[2019-12-29] MEDS: inSUlin ASPART (NovoLOG) 1 UNIT/0.01 ML (CHARGE PER UNIT) SQ SCH ×2 (05:52→12:09)
--- NOTE | 2019-12-29 06:49 | Pulmonary Progress Note ---
Subjective Time Seen by a Provider: 06:48 Subjective/Events-last exam NO complications noted. Sepsis Event Evaluation Height, Weight, BMI Height: 5'7.50" Weight: 236lbs. 0.0oz. 107.030315xa; 34.00 BMI Method:Stated Focused Exam Lactate Level 12/26/19 17:00: Lactic Acid Level 2.32*H 12/26/19 19:50: Lactic Acid Level 2.32*H 12/26/19 22:43: Lactic Acid Level 1.91 Exam Exam Vital Signs Date Time Temp Pulse Resp B/P (MAP) Pulse Ox O2 Delivery O2 Flow Rate FiO2 12/29/19 06:45 96 Nasal Cannula 3.00 12/29/19 04:26 36.5 91 21 160/78 (105) 95 Nasal Cannula 3.00 12/29/19 01:44 96 Nasal Cannula 3.00 12/29/19 00:33 36.2 85 21 158/62 (94) 98 Nasal Cannula 3.00 12/28/19 21:33 96 Nasal Cannula 3.00 12/28/19 21:00 Nasal Cannula 3.00 12/28/19 20:40 36.6 92 22 171/79 (109) 98 Nasal Cannula 3.00 12/28/19 18:34 160/68 (98) 12/28/19 18:29 96 Nasal Cannula 3.00 12/28/19 16:28 36.6 84 22 175/81 (112) 99 Nasal Cannula 3.00 12/28/19 15:02 96 High Flow N/C 2.00 12/28/19 14:57 162/63 (96) 12/28/19 13:04 96 Nasal Cannula 2.00 12/28/19 12:41 66 197/88 (124) 12/28/19 11:34 36.1 60 20 217/93 (134) 96 Nasal Cannula 2.00 12/28/19 11:13 95 High Flow N/C 2.00 12/28/19 10:49 37.2 61 20 190/89 (122) 96 Nasal Cannula 2.00 12/28/19 09:00 67 14 184/81 (115) 95 Nasal Cannula 2.00 12/28/19 08:00 Nasal Cannula 2.00 12/28/19 08:00 69 18 195/84 (121) 96 Nasal Cannula 2.00 12/28/19 07:44 36.1 12/28/19 07:15 96 High Flow N/C 2.00 12/28/19 07:00 69 19 200/93 (128) 97 Nasal Cannula 2.00 I & O 12/29/19 07:00 Intake Total 1372 ml Output Total 800 ml Balance 572 ml Height & Weight Height: 5'7.50" Weight: 236lbs. 0.0oz. 107.175442yb; 34.00 BMI Method:Stated General Appearance: No Apparent Distress, WD/WN, Chronically ill HEENT: PERRL/EOMI, Normal ENT Inspection, Pharynx Normal, Moist Mucous Membranes Neck: Lymphadenopathy (L), Lymphadenopathy (R) Respiratory: Lungs Clear, Normal Breath Sounds, No Accessory Muscle Use, No Respiratory Distress Cardiovascular: Regular Rate, Rhythm Capillary Refill: Less Than 3 Seconds Gastrointestinal: normal bowel sounds, non tender, soft Extremity: Normal Capillary Refill, Normal Inspection, Normal Range of Motion, Non Tender, No Calf Tenderness, No Pedal Edema Neurologic/Psychiatric: Alert, Oriented x3 Skin: Normal Color, Warm/Dry Lymphatic: No Adenopathy Results Lab Laboratory Tests 12/28/19 01:43 12/29/19 04:30 Assessment/Plan Assessment/Plan s/p Acute respiratory failure -Pt uses 3 liters of oxygen at home. -s/p intubation while in the ED. -Hx of tracheostomy HX of vocal cord spasms CAD DM Pt is ok for discharge from pulmonary standpoint. MILE SUMMERS DO Dec 29, 2019 06:49
[2019-12-29 08:00] VITALS: BP 191/86
[2019-12-29] MEDS: FAMOTIDINE 20MG/2ML IV (PEPCID) IVP SCH (08:24)
[2019-12-29] MEDS: lisINopril 5 MG (PRINIVIL) TABLET PO SCH (08:24)
[2019-12-29] MEDS ORDERED: FLUO40CA PO (10:13)
[2019-12-29] MEDS ORDERED: CHOL10007 PO (10:13)
[2019-12-29] MEDS ORDERED: POTA10TA PO (10:13)
[2019-12-29] MEDS ORDERED: CLOP75TA28 PO (10:13)
[2019-12-29] MEDS ORDERED: FURO40TA4 PO (10:13)
[2019-12-29] MEDS ORDERED: OMEG-105 PO (10:13)
[2019-12-29] MEDS ORDERED: LEVO75TA6 PO (10:13)
[2019-12-29] MEDS ORDERED: ATOR80TA76 PO (10:13)
[2019-12-29] MEDS ORDERED: LISI40TA PO (10:22)
--- NOTE | 2019-12-29 10:26 | NUR ---
SPOKE WITH THE PT (I CALLED HER ROOM PHONE) AND SHE SUGGESTED I CALL HER YISEL SINCE HE HAS A MED LIST FOR THE PT. I TRIED TO CALL HER SEVERAL TIMES WITH NO ANSWER, HOWEVER IN THE MEANTIME THERE WAS A MEDICATION LIST IN HER CHART FROM [facility]. I USED THE MED LIST, WENT THRU THE EXT MED HISTORY AND CALLED RINA TO COMPLETE THE MED REC I TRIED TO SPEAK WITH THE PT AGAIN AND DIRECTED THE CONVERSATION USING THE MED LIST HOWEVER PT WAS NOT ABLE TO PROVIDE INFORMATION REGARDING HER PRESCRIPTIONS. LISINOPRIL- ON THE MED LIST IT SHOWS 10MG HOWEVER [facility] LAST FILLED THE 40MG METFORMIN- ON THE MED LIST IT SHOW METFORMIN 500MG AND METFORMIN ER 500MG, WHEN I SPOKE WITH RINA THEY HAVE ONLY EVER FILLED THE ER 500MG OTC MEDS: VIT D MTV FLONASE CETIRIZINE
[2019-12-29] MEDS ORDERED: AMLO5TAB4 PO (11:13)
[2019-12-29] MEDS ORDERED: CEFD300C3 PO (11:13)
[2019-12-29] MEDS ORDERED: MTP25TSR PO (11:13)
[2019-12-29] MEDS ORDERED: PRED10TA22 PO (11:13)
[2019-12-29] MEDS ORDERED: RT-ALBUTEROL/IPRATROPIUM 3 ML (DUONEB) VIAL IH PRN (11:15)
[2019-12-29] MEDS ORDERED: NYSTATIN ORAL SUSP 5 ML UDC PO ONE (11:15)
[2019-12-29] MEDS ORDERED: RT-ALBUTEROL SULF 2.5 MG/3 ML PRE-MIX VIAL INH PRN (11:15)
[2019-12-29] MEDS ORDERED: HYDROcodone/APAP 10 MG/325 MG (LORTAB) TAB PO PRN (11:15)
[2019-12-29] MEDS ORDERED: amLODIPine 5 MG (NORVASC) TAB PO NR (11:15)
[2019-12-29] MEDS ORDERED: NYST1000 PO (11:16)
--- NOTE | 2019-12-29 11:16 | Discharge Summary ---
Discharge Summary Hospital Course Was the Problem List Reviewed?: Yes Problems/Dx: (1) Glottitis Status: Acute (2) Acute and chronic respiratory failure (3) CAD (coronary artery disease) (4) SOB (shortness of breath) on exertion (5) COPD exacerbation Status: Acute (6) Laryngospasm Status: Acute (7) Tracheitis Status: Acute Hospital Course Date of Admission: Dec 25, 2019 at 21:15 Admission Diagnosis : Family Physician/Provider: Shruti Meyer Aprn Date of Discharge: 12/29/19 Discharge Diagnosis: Assessment: Strido Respiratory insufficiency requiring intubation Lactic acidosis CAD DM h/o trach Plan: Monitor closely Intubation IVF 12/27/19: Discontinue Metformin Extubated successfully today High flow oxygen COVID swab pending 12/28/19: Follow up on Mumps lab work Transfer to 4th floor Monitor diarrhea Tentative discharge planned for tomorrow Hospital Course: Hospital Course: Pt had a lengthy hospital course that started with Glotitis in addition to other pharyngeal edema requiring airway protection with intubation and central line and ICU admission. Overall she was able to be extubated after IV steroids and IV antibiotics. Cervical lymphadenopathy noted so mumps titer was sent to the labs and she had had mumps as a child. Overall she did well, chest x-ray remained stable, BP was elevated and I did start Norvasc in addition to restarting all of her home medications in addition to Nystatin for thrush from antibiotic use. She will remain on Cefdinir and will also require Nystatin swish and swallow for thrush. Labs and Pending Lab Test: Laboratory Tests 12/28/19 11:42: Glucometer 306H 12/28/19 16:36: Glucometer 228H 12/28/19 20:15: Glucometer 329H 12/29/19 04:30: White Blood Count 8.8, Red Blood Count 3.57L, Hemoglobin 10.3L, Hematocrit 31L, Mean Corpuscular Volume 87, Mean Corpuscular Hemoglobin 29, Mean Corpuscular Hemoglobin Concent 33, Red Cell Distribution Width 14.9H, Platelet Count 165, Mean Platelet Volume 10.8, Immature Granulocyte % (Auto) 4, Neutrophils (%) (Auto) 74, Lymphocytes (%) (Auto) 15, Monocytes (%) (Auto) 7, Eosinophils (%) (Auto) 0, Basophils (%) (Auto) 0, Neutrophils # (Auto) 6.5, Lymphocytes # (Auto) 1.3, Monocytes # (Auto) 0.6, Eosinophils # (Auto) 0.0, Basophils # (Auto) 0.0, Immature Granulocyte # (Auto) 0.4H, Sodium Level 137, Potassium Level 4.5, Chloride Level 101, Carbon Dioxide Level 24, Anion Gap 12, Blood Urea Nitrogen 21H, Creatinine 1.00, Estimat Glomerular Filtration Rate 55, BUN/Creatinine Ratio 21, Glucose Level 250H, Calcium Level 8.5, Phosphorus Level 3.0, Magnesium Level 2.4, Beta-Hydroxybutyrate (Chem panel) 0.39H Microbiology 12/25/19 MRSA Screen - Final, Complete MRSA not isolated 12/25/19 Blood Culture - Preliminary, Resulted No growth Home Meds Active Norvasc (Amlodipine Besylate) 5 Mg Tablet 5 Mg PO DAILY Prednisone 10 Mg Tab.ds.pk 10 Mg PO DAILY 4 pills once daily for 2 days then 2 pills daily for 2 days then 1 pill daily for 2 days Cefdinir 300 Mg Capsule 300 Mg PO BID Metoprolol Succinate 25 Mg Tab.er.24h 25 Mg PO DAILY Reported Lisinopril 40 Mg Tablet 40 Mg PO DAILY Fluoxetine HCl 40 Mg Capsule 40 Mg PO DAILY Levothyroxine Sodium 75 Mcg Tablet 75 Mcg PO DAILY Atorvastatin Calcium 80 Mg Tablet 80 Mg PO HS Clopidogrel (Clopidogrel Bisulfate) 75 Mg Tablet 75 Mg PO DAILY K-Tab ER (Potassium Chloride) 10 Meq Tablet.er 10 Meq PO BID [place]-3 Acid Ethyl Esters 1 Gm Capsule 2 Gm PO BID Furosemide 40 Mg Tablet 40 Mg PO DAILY Vitamin D3 (Cholecalciferol (Vitamin D3)) 25 Mcg Capsule 25 Mcg PO DAILY HYDROcodone/APAP 10/325 TABLET (Acetaminophen/Hydrocodone Bitart) 1 Each Tablet 1 Tab PO QID PRN Fluticasone Propionate 16 Gm [place].susp 2 Sprays NS DAILY Lyrica (Pregabalin) 75 Mg Capsule 75 Mg PO TID Tresiba Flextouch U-100 (Insulin Degludec) 100 Unit/1 Ml Insuln.pen 10 Unit SQ DAILY Centrum Silver Tablet (Multivit-Min/FA/Lycopene/Lut) 1 Each Tablet 1 Tab PO DAILY Amitriptyline HCl 50 Mg Tablet 50 Mg PO HS Spiriva (Tiotropium Constantia) 1 Inh Aerp 1 Cap IH DAILY Montelukast Sodium 10 Mg Tablet 10 Mg PO HS Metformin HCl ER (Metformin HCl) 500 Mg Tab.er.24h 1,000 Mg PO 1730 TAKES 2 (500MG) TABLETS Pantoprazole Sodium 40 Mg Tablet.dr 40 Mg PO BID Butrans (Buprenorphine) 1 Each Patch.tdwk 1 Patch TD TH Ventolin Hfa (Albuterol Sulfate) 18 Gm Hfa.aer.ad 2 Puff INH Q4H PRN Iprat-Albut 0.5-3(2.5) mg/3 ml (Ipratropium/Albuterol Sulfate) 3 Ml Ampul.neb 3 Ml NEB Q4H PRN Cetirizine HCl 10 Mg Tablet 10 Mg PO DAILY Fenofibrate (Fenofibrate Nanocrystallized) 145 Mg Tablet 145 Mg PO DAILY Glimepiride 2 Mg Tablet 2 Mg PO BID Assessment/Pt Instructions chc 1 week Discharge Planning: <30 minutes discharge planning Discharge Instructions Discharge Diet: No Restrictions Activity as Tolerated: Yes Discharge Physical Examination Vital Signs Vital Signs Date Time Temp Pulse Resp B/P (MAP) Pulse Ox O2 Delivery O2 Flow Rate FiO2 12/29/19 10:34 96 Nasal Cannula 3.00 12/29/19 08:00 36.6 62 18 191/86 (121) 12/27/19 07:25 30 General Appearance: No Apparent Distress, WD/WN, Chronically ill Respiratory: Normal Breath Sounds Cardiovascular: Regular Rate, Rhythm Neurologic/Psychiatric: Alert, Oriented x3 Allergies: Coded Allergies: dornase lloyd (Verified Allergy, Unknown, RAPID HEART BEAT, 03/23/17) Penicillins (Verified Adverse Reaction, Mild, NAUSEA, 03/23/17) codeine (Verified Adverse Reaction, Mild, NAUSEA, PT TAKES HYDROCODONE AT HOME, 03/23/17) etomidate (Verified Adverse Reaction, Unknown, seizures, 12/25/19) Discharge Summary Date of Admission Dec 25, 2019 at 21:15 Date of Discharge Discharge Date: Dec 29, 2019 Admission Diagnosis Assessment: Strido Respiratory insufficiency requiring intubation Lactic acidosis CAD DM h/o trach Plan: Monitor closely Intubation IVF Discharge Diagnosis Assessment: Strido Respiratory insufficiency requiring intubation Lactic acidosis CAD DM h/o trach Plan: Monitor closely Intubation IVF 12/27/19: Discontinue Metformin Extubated successfully today High flow oxygen COVID swab pending 12/28/19: Follow up on Mumps lab work Transfer to 4th floor Monitor diarrhea Tentative discharge planned for tomorrow (1) Glottitis Status: Acute (2) Acute and chronic respiratory failure (3) CAD (coronary artery disease) (4) SOB (shortness of breath) on exertion (5) COPD exacerbation Status: Acute (6) Laryngospasm Status: Acute (7) Tracheitis Status: Acute Clinical Quality Measures DVT/VTE Risk/Contraindication: Risk Factor Score Per Nursin RFS Level Per Nursing on Admit: 4+=Very High FRANTZ GROVE DO Dec 29, 2019 11:16
[2019-12-29] MEDS: ENOXAPARIN 40 MG/0.4 ML (LOVENOX) SYR SC SCH (11:52)
[2019-12-29] MEDS ORDERED: CEFDINIR 300 MG (OMNICEF) CAP PO NR (12:00)
[2019-12-29] MEDS ORDERED: NYSTATIN ORAL SUSP 5 ML UDC ONE (12:00)
[2019-12-29] MEDS ORDERED: FLUTICASONE NASAL SPRAY (FLONASE) 16 GM BTL NS SCH (12:03)
[2019-12-29] MEDS ORDERED: UMECLIDINIUM BROMIDE (INCRUSE ELLIPTA) 7'S IH SCH (12:15)
[2019-12-29 12:36] VITALS: BP 191/86
--- NOTE | 2019-12-29 12:36 | NUR ---
VALENTÍN ROWAN demonstrates understanding of discharge instructions and accurately returns instructions upon questioning. Copy of Post-Discharge Instructions and Medication Discharge Instructions given to PT. VALENTÍN ROWAN is able to manage continuing needs after discharge. Patients belongings returned to PT. Skin dry and intact; no breakdown noted. Patient discharged from 412-1 on at 1236. VALENTÍN ROWAN left floor via WC, accompanied by STAFF.
[2019-12-29] MEDS ORDERED: PREGABALIN 75 MG (LYRICA) CAP PO SCH (13:00)
[2019-12-29] MEDS ORDERED: metFORMIN XR 500 MG (GLUCOPHAGE XR) TAB PO SCH (17:30)
[2019-12-29] MEDS ORDERED: OMEGA 3 (FISH OIL) 1000 MG CAP PO SCH (18:00)
[2019-12-29] MEDS ORDERED: GLIMEPIRIDE 2 MG (AMARYL) TAB PO SCH (18:00)
[2019-12-29] MEDS ORDERED: KCL 10 MEQ TAB (MICRO K) PO SCH (18:00)
[2019-12-29] MEDS ORDERED: PANTOPRAZOLE 40 MG (PROTONIX) TAB PO SCH (21:00)
[2019-12-29] MEDS ORDERED: FENOFIBRATE 134 MG (LOFIBRA) CAPSULE PO SCH (21:00)
[2019-12-29] MEDS ORDERED: MONTELUKAST 10 MG (SINGULAIR) TAB PO SCH (21:00)
[2019-12-29] MEDS ORDERED: AMITRIPTYLINE 50 MG (ELAVIL) TAB PO SCH (21:00)
[2019-12-30] MEDS ORDERED: LEVOTHYROXINE 75 MCG (LEVOTHROID) TABLET PO SCH (06:30)
[2019-12-30] MEDS ORDERED: MULTIVIT W/MINERALS TAB (THERAGRAN M) PO SCH (07:00)
[2019-12-30] MEDS ORDERED: VITAMIN D3 25 MCG (1,000 UNITS) TABLET PO SCH (07:00)
[2019-12-30] MEDS ORDERED: lisINopril 40 MG (PRINIVIL) TABLET PO SCH (09:00)
[2019-12-30] MEDS ORDERED: FUROSEMIDE 40 MG (LASIX) TAB PO SCH (09:00)
[2019-12-30] MEDS ORDERED: FLUoxetine HCL 20 MG (PROzac) CAP PO SCH (09:00)
[2019-12-30] MEDS ORDERED: CLOPIDOGREL 75 MG (PLAVIX) TABLET PO SCH (09:00)
[2019-12-30] MEDS ORDERED: LORATADINE (CLARITIN) 10 MG TAB PO SCH (09:00)
[2019-12-30] MEDS ORDERED: BUPRENORPHINE TD SCH (11:15)
== END 2019-12-29 12:36 | disposition home or self-care (01) | DRG 208 ==
LOC: EDUNIT# 18:09 → ER 18:12 → ICU 21:15 → 4TH 12-28 12:23
PROVIDERS: ADMIT Internal Medicine; ATTEND Internal Medicine
PROC: 5A1945Z Respiratory Ventilation, 24-96 Consecutive Hours (ICD-10-PCS; principal; 2019-12-25)
PROC: 0BH17EZ Insertion of Endotracheal Airway into Trachea, Via Natural or Artificial Opening (ICD-10-PCS; 2019-12-25)
PROC: 02HV33Z Insertion of Infusion Device into Superior Vena Cava, Percutaneous Approach (ICD-10-PCS; 2019-12-25)
DX: J96.20 Acute and chronic respiratory failure, unspecified whether with hypoxia or hypercapnia (principal); J44.1 Chronic obstructive pulmonary disease with (acute) exacerbation; E87.2 Acidosis; J04.0 Acute laryngitis; J04.10 Acute tracheitis without obstruction; I25.10 Atherosclerotic heart disease of native coronary artery without angina pectoris; E11.9 Type 2 diabetes mellitus without complications; F41.9 Anxiety disorder, unspecified; F32.9 Major depressive disorder, single episode, unspecified; J30.2 Other seasonal allergic rhinitis; I10 Essential (primary) hypertension; K21.9 Gastro-esophageal reflux disease without esophagitis; M48.02 Spinal stenosis, cervical region; M19.91 Primary osteoarthritis, unspecified site; M79.7 Fibromyalgia; M06.9 Rheumatoid arthritis, unspecified; M54.9 Dorsalgia, unspecified; Z99.81 Dependence on supplemental oxygen; Z87.891 Personal history of nicotine dependence
CPT/HCPCS: 36415; 36600; 51702; 71045; 80048; 80053; 80061; 81000; 82010; 82805; 82962; 83036; 83605; 83735; 83874; 83880; 84100; 84478; 84484; 85007; 85025; 85027; 85379; 85610; 85730; 86735; 87040; 87081; 87635; 93005; 93041; 94002; 94003; 94640; 94660; 94799; 99291

== ENCOUNTER → 2020-02-15 | Outpatient (CLI) | payer MEDICARE, MEDICAID ==
[~2020-02-15] MED LIST changes: +AMLO5TAB4 PO; +LEVO75TA6 PO; +LISI40TA PO; +OMEG-105 PO; +POTA10TA PO; +PRED10TA22 PO
[2020-02-15 12:32] LABS: POTASSIUM 4.2 MMOL/L (3.6-5.0)
[2020-02-15 12:34] LABS: CALCIUM 8.8 MG/DL (8.5-10.1)
== END ==
LOC: LAB 11:59
PROVIDERS: ATTEND Internal Medicine Cardiovascular Disease
DX: R00.2 Palpitations (principal)
CPT/HCPCS: 36415; 80048

== ENCOUNTER → 2021-03-09 | Outpatient (CLI) | payer MEDICARE, MEDICAID ==
[~2021-03-09] MED LIST changes: -ALIR75PE SC; +ALIR75PE5 SC; -ARIP10TA17 PO; +ARIP10TA55 PO; -CIPR500T4 PO; +CIPR500T5 PO; -LISI-556 PO; -LISI40TA PO; +LISI40TA9 PO; +LISI5TAB20 PO; +MONT-40 PO; -MONT10TA26 PO; -OMEG-105 PO; +OMEG-218 PO; -OMEP40CA27 PO; +OMEP40CA6 PO; +SERT-413 PO; +SERT-414 PO; -SERT100T8 PO; -SERT50TA9 PO
--- NOTE | 2021-03-09 16:36 | Diagnostic Imaging Report ---
EXAMINATION: US Retroperitoneal Complete. TECHNIQUE: Multiple real-time grayscale images were obtained over the kidneys in various projections bilaterally. HISTORY: CHRONIC KIDNEY DISEASE COMPARISON: None available. FINDINGS: The right kidney demonstrates a 3.0 cm cyst which requires no followup. There is a subtle area of prominence within the mid kidney which is isoechoic measuring up to 2.3 cm. The right kidney measures 12.9 x 5.1 x 5.4 cm. No hydronephrosis. The left kidney demonstrates normal echogenicity and cortical thickness. The left kidney measures 11.4 x 6.9 x 5.1 cm. No hydronephrosis. Prominence of the mid left kidney which has an appearance suggesting a prominent column of [place]. The urinary bladder is normal. Bilateral ureteral jets are seen. The post void volume is 24 ml. IMPRESSION: 1. No hydronephrosis. 2. Bilateral isoechoic prominence of the mid kidneys which suggests prominent columns of Adarsh. These can be confirmed with CT or MRI of the abdomen renal mass protocol to exclude renal mass. Dictated by: Dictated on workstation # [id number]
== END ==
LOC: RAD 14:55
PROVIDERS: ATTEND Internal Medicine
DX: N18.32 Chronic kidney disease, stage 3b (principal)
CPT/HCPCS: 76770

== ENCOUNTER → 2021-03-30 | Outpatient (CLI) | payer MEDICARE, MEDICAID ==
[2021-03-30 10:34] LABS: ALBUMIN 4.2 GM/DL (3.2-4.5); POTASSIUM 3.9 MMOL/L (3.6-5.0)
[2021-03-30 10:36] LABS: BILIRUBIN,URINE NEGATIVE (NEGATIVE); CLARITY,URINE CLEAR; COLOR,URINE YELLOW; GLUCOSE, URINE (UA) NEGATIVE (NEGATIVE); KETONES,URINE NEGATIVE (NEGATIVE); LEUKOCYTE ESTERASE ,URINE NEGATIVE (NEGATIVE); NITRITE,URINE NEGATIVE (NEGATIVE); PH,URINE 6.5 (5-9); PROTEIN,URINE NEGATIVE (NEGATIVE)
[2021-03-30 10:36] LABS: CALCIUM 9.3 MG/DL (8.5-10.1)
[2021-03-30 10:40] LABS: CREATININE SERUM 0.83 MG/DL (0.60-1.30); PHOSPHORUS 3.7 MG/DL (2.3-4.7)
[2021-03-30 10:42] LABS: WBC,URINE 0-2 /HPF
[2021-03-30 10:43] LABS: MAGNESIUM 1.9 MG/DL (1.6-2.4)
[2021-03-30 10:43] LABS: BACTERIA,URINE NEGATIVE /HPF; SQUAMOUS EPITHELIAL CELL,UR RARE /HPF
== END ==
LOC: LAB 09:30
PROVIDERS: ATTEND Internal Medicine
DX: N18.32 Chronic kidney disease, stage 3b (principal)
CPT/HCPCS: 36415; 80069; 81000; 82043; 82306; 83735; 83970

== ENCOUNTER 2021-04-30 05:43 | Outpatient (CLI) | payer MEDICARE, MEDICAID ==
[~2021-04-30] VITALS: Ht 170.2 cm; Wt 92.5 kg
[2021-04-30] MEDS ORDERED: FLUO20TA28 PO (14:40)
[2021-04-30] MEDS ORDERED: PAMI30VI8 SQ (14:40)
[2021-04-30] MEDS ORDERED: ASPI-999 PO (14:40)
[2021-04-30] MEDS ORDERED: LISI40TA9 PO (14:40)
[2021-04-30] MEDS ORDERED: INSU100V5 SQ (14:40)
[2021-04-30] MEDS ORDERED: UMEC62.5 IH (14:40)
== END 2021-04-30 14:51 ==
LOC: PREOP 05:43
PROVIDERS: ATTEND Surgery
DX: Z01.818 Encounter for other preprocedural examination (principal)

== ENCOUNTER 2021-05-08 08:37 | Day surgery (SDC) | payer MEDICARE, MEDICAID ==
[~2021-05-08] VITALS: Ht 170.2 cm; Wt 92.5 kg
[~2021-05-08 08:37] MED LIST changes: +FLUO20TA28 PO; +INSU100V5 SQ; +PAMI30VI8 SQ; +UMEC62.5 IH
[2021-05-08] MEDS ORDERED: LACTATED RINGERS 1,000 ML IV ONE (08:48)
[2021-05-08] MEDS ORDERED: LACTATED RINGERS 1,000 ML IV STA (08:53)
[2021-05-08 09:05] VITALS: BP 184/82
[2021-05-08] MEDS ORDERED: ONDANSETRON 4 MG/2 ML (SDV) Z0FRAN ONE (09:09)
--- NOTE | 2021-05-08 09:31 | Progress Note-Pre Operative ---
Pre-Operative Progress Note H&P Reviewed The H&P was reviewed, patient examined and no changes noted. Date Seen by Provider: May 08, 2021 Time Seen by Provider: 09:30 Date H&P Reviewed: May 08, 2021 Time H&P Reviewed: 09:30 Pre-Operative Diagnosis: history of polyps DELIA BROWER DO May 08, 2021 09:30
[2021-05-08] MEDS ORDERED: KETAMINE 50 MG/5 ML SYRINGE ONE (10:31)
[2021-05-08] MEDS ORDERED: PROPOFOL INJECTION 50 ML IV ONE (10:32)
[2021-05-08 11:10] VITALS: BP 150/69
--- NOTE | 2021-05-08 11:11 | Progress Note-Post Operative ---
Post-Operative Progess Note Surgeon (s)/Chief Gauger (s) Surgeon DELIA BROWER DO Chief Gauger: N/A Pre-Operative Diagnosis history of polyps Post-Operative Diagnosis Colon polyps Procedure & Operative Findings Date of Procedure 05/08/21 Procedure Performed/Findings Colonoscopy with hot bx Polypectomy x3 Anesthesia Type per [employer] Estimated Blood Loss Estimated blood loss (mL): none Specimens/Packing Specimens Removed cecum polyp x1, asending colon polyp x2 DELIA BROWER DO May 08, 2021 11:11
--- NOTE | 2021-05-08 11:14 | Discharge Inst-Simple/Standard ---
Discharge Inst-Standard Patient Instructions/Follow Up Plan of Care/Instructions/FU: Mary Kay 2 weeks. Hold plavix 3 more days. Activity as Tolerated: Yes Discharge Diet: Regular Diet DELIA BROWER DO May 08, 2021 11:14
[2021-05-08 11:30] VITALS: BP 169/76
[2021-05-08 11:44] VITALS: BP 169/76
--- NOTE | 2021-05-08 12:01 | OPERATIVE REPORT ---
DATE OF SERVICE: 05/08/2021 PREOPERATIVE DIAGNOSIS: History of polyps. POSTOPERATIVE DIAGNOSIS: Colon polyps. PROCEDURE: Colonoscopy with hot biopsy polypectomy x3. SURGEON: Delia Muñiz DO ANESTHESIA: Per [employer]. ESTIMATED BLOOD LOSS: None. COMPLICATIONS: None. SPECIMENS: Cecal polyp x1, ascending colon polyp x2. INDICATIONS: The patient is a 70-year-old female needing colonoscopy for history of polyps. She understands risks and benefits of procedure and wishes to proceed. Consent was signed in the chart. DESCRIPTION OF PROCEDURE: The patient was taken to endoscopy suite, placed in left lateral recumbent position. Timeout was performed. Digital rectal exam was performed. No palpable polyps, masses or ulcerations. Scope was inserted in the rectum and advanced all the way to cecum with minimal difficulty. A small polyp was present in the cecum, which hot biopsy polypectomy was performed. Scope was then continuously retracted back in the ascending colon polyp. There were 2 small polyps, which hot biopsy polypectomy was performed. Scope was then continuously retracted back. No polyps, masses or ulcerations within the remainder of the ascending, transverse, descending, sigmoid and rectum. Once in the rectum, scope was retroflexed noting no other pathology. Scope was returned to its normal position, slowly withdrawn until completely removed. The patient tolerated procedure well without any complications. She was taken to recovery room in stable condition. RECOMMENDATIONS: The patient will need repeat colonoscopy in 5 years. Any issues before that be seen at that time. The patient will follow up in the office in 2 weeks to discuss pathology. Job ID: [id number] DocumentID: [id number] Dictated Date: 05/08/2021 11:20:44 Marine Equipment Engineer Date: 05/08/2021 12:00:24 Dictated By: DELIA MUÑIZ DO
--- NOTE | 2021-05-08 14:49 | Anesthesia-General Post-Op ---
MAC Patient Condition Mental Status/LOC: Same as Preop Cardiovascular: Satisfactory Nausea/Vomiting: Absent Respiratory: Satisfactory Pain: Controlled Complications: Absent Post Op Complications Complications None Follow Up Care/Instructions Patient Instructions None needed. Anesthesiology Discharge Order Discharge Order Patient is doing well, no complaints, stable vital signs, no apparent adverse anesthesia problems. No complications reported per nursing. MARISA HUTCHINSON CRNA May 08, 2021 14:49
== END 2021-05-08 11:43 | disposition home or self-care (01) ==
LOC: ENDO 08:37
PROVIDERS: ATTEND Surgery
DX: Z12.11 Encounter for screening for malignant neoplasm of colon (principal); D12.2 Benign neoplasm of ascending colon; K63.5 Polyp of colon; I10 Essential (primary) hypertension; E11.9 Type 2 diabetes mellitus without complications; E78.00 Pure hypercholesterolemia, unspecified; G47.33 Obstructive sleep apnea (adult) (pediatric); J43.9 Emphysema, unspecified; I25.10 Atherosclerotic heart disease of native coronary artery without angina pectoris; Z87.891 Personal history of nicotine dependence; Z79.899 Other long term (current) drug therapy; Z79.4 Long term (current) use of insulin; Z79.02 Long term (current) use of antithrombotics/antiplatelets; Z98.61 Coronary angioplasty status; Z79.82 Long term (current) use of aspirin

== ENCOUNTER 2021-06-06 13:09 | Inpatient (IN) | payer MEDICARE, MEDICAID ==
[~2021-06-06] VITALS: Ht 170 cm; Wt 99.6 kg
[~2021-06-06 13:09] MED LIST changes: +PAMI30VI8; -PAMI30VI8 SQ
[2021-06-06] MEDS ORDERED: FAMOTIDINE 20MG/2ML IV (PEPCID) IVP ONE (13:30)
[2021-06-06] MEDS ORDERED: ONDANSETRON 4 MG/2 ML (SDV) Z0FRAN IVP ONE (13:30)
[2021-06-06] MEDS ORDERED: fentaNYL INJ 100 MCG/2 ML AMP IVP ONE (13:30)
[2021-06-06] MEDS ORDERED: LACTATED RINGERS 1,000 ML IV ONE (13:30)
[2021-06-06 13:38] LABS: BASOPHILS % (AUTO) 0 % (0-10); EOSINOPHILS # (AUTO) 0.1 10^3/uL (0.0-0.3); EOSINOPHILS % (AUTO) 1 % (0-10); HEMATOCRIT 41 % (35-52); HEMOGLOBIN 13.6 g/dL (11.5-16.0); LYMPHOCYTES # (AUTO) 2.2 10^3/uL (1.0-4.0); LYMPHOCYTES % (AUTO) 24 % (12-44); MEAN CORPUSCULAR HEMOGLOBIN 29 pg (25-34); MEAN CORPUSCULAR HGB CONC 34 g/dL (32-36); MEAN CORPUSCULAR VOLUME 85 fL (80-99); MEAN PLATELET VOLUME 10.7 fL (9.0-12.2); MONOCYTES # (AUTO) 0.6 10^3/uL (0.0-1.0); MONOCYTES % (AUTO) 7 % (0-12); NEUTROPHILS # (AUTO) 6.4 10^3/uL (1.8-7.8); NEUTROPHILS % (AUTO) 68 % (42-75); PLATELET COUNT 237 10^3/uL (130-400); WHITE BLOOD COUNT 9.4 10^3/uL (4.3-11.0)
[2021-06-06] MEDS ORDERED: PROMETHAZINE INJ 25 MG/ML (PHENERGAN) AMP IVP ONE (13:45)
[2021-06-06] MEDS ORDERED: HYDROmorphone 2 MG/ML VIAL (DILAUDID) IV ONE ×2 (13:45→15:15)
[2021-06-06 13:48] LABS: ALBUMIN 4.2 GM/DL (3.2-4.5); POTASSIUM 3.7 MMOL/L (3.6-5.0)
[2021-06-06 13:49] LABS: CALCIUM 9.5 MG/DL (8.5-10.1)
[2021-06-06 13:51] LABS: TOTAL PROTEIN 6.4 GM/DL (6.4-8.2)
[2021-06-06 13:52] LABS: BILIRUBIN,TOTAL 1.4 MG/DL (0.1-1.0)
[2021-06-06 13:54] LABS: CREATININE SERUM 1.02 MG/DL (0.60-1.30)
[2021-06-06 13:57] LABS: MAGNESIUM 1.8 MG/DL (1.6-2.4)
[2021-06-06] MEDS ORDERED: IOHEXOL 350 MG/ML 100 ML (OMNIPAQUE 350) VIAL IV ONE (14:15)
[2021-06-06] MEDS ORDERED: HOLD METFORMIN - RECEIVED CONTRAST 20 ML VIAL IV SCH (14:15)
[2021-06-06] MEDS ORDERED: NS 100 ML (IVPB) BAG IV ONE (14:15)
[2021-06-06 14:47] LABS: CLARITY,URINE CLEAR; COLOR,URINE YELLOW; GLUCOSE, URINE (UA) TRACE (NEGATIVE); KETONES,URINE NEGATIVE (NEGATIVE); LEUKOCYTE ESTERASE ,URINE TRACE (NEGATIVE); NITRITE,URINE NEGATIVE (NEGATIVE); PH,URINE 6.5 (5-9); PROTEIN,URINE TRACE (NEGATIVE)
--- NOTE | 2021-06-06 14:55 | ED Abdominal Pain ---
General Chief Complaint: Abdominal/GI Problems Stated Complaint: ABD PAIN Nursing Triage Note: ARRIVED VIA AMB WITH COMPLAINTS OF UPPERGASTRIC PAIN STARTING ON FRIDAY AFTER HER SCOPE. Source of Information: Patient, Old Records, Other (Dr. Hong) Exam Limitations: No Limitations History of Present Illness Date Seen by Provider: Jun 06, 2021 Time Seen by Provider: 13:18 Initial Comments This 70-year-old woman presents to the emergency room with complaints of severe upper abdominal pain since June 04 after having a endoscopic biopsy of a pancreatic head cyst obtained under Doppler guidance by Dr. Galindo in [place]. She was not experiencing any significant pain prior to the procedure. She now has severe pain and vomiting. She is in distress. She has history of pancreatitis associated with this pancreatic cyst. She reports having multiple biopsies in the past that were benign. According to Dr. Galindo the tissue biopsy was benign but they are still awaiting the fluid cytology. According to Dr. 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 I was able to speak with him directly by phone. She is afebrile. Allergies and Home Medications Allergies Coded Allergies: dornase lloyd (Verified Allergy, Unknown, RAPID HEART BEAT, 03/23/17) Penicillins (Verified Adverse Reaction, Mild, NAUSEA, 03/23/17) codeine (Verified Adverse Reaction, Mild, NAUSEA, PT TAKES HYDROCODONE AT HOME, 03/23/17) etomidate (Verified Adverse Reaction, Unknown, seizures, 12/25/19) Patient Home Medication List Home Medication List Reviewed: Yes Albuterol Sulfate (Ventolin Hfa) 18 Gm Hfa.aer.ad, 2 PUFF INH Q4H PRN for SHORTNESS OF BREATH, (Reported) Entered as Reported by: WAGNER MAHARAJ on 07/22/162126 Aspirin (Aspirin) 81 Mg Tab.chew, 81 MG PO DAILY, (Reported) Entered as Reported by: JAMAR BORGES on 04/30/21 1440 Atorvastatin Calcium (Atorvastatin Calcium) 80 Mg Tablet, 80 MG PO HS, (Reported) Entered as Reported by: YUE SHANE on 12/29/19 1013 Cetirizine HCl (Cetirizine HCl) 10 Mg Tablet, 10 MG PO DAILY, (Reported) Entered as Reported by: CONRAD SÁNCHEZ on 02/13/15 0910 Clopidogrel Bisulfate (Clopidogrel) 75 Mg Tablet, 75 MG PO DAILY, (Reported) Entered as Reported by: YUE SHANE on 12/29/19 1013 Fenofibrate Nanocrystallized (Fenofibrate) 145 Mg Tablet, 145 MG PO DAILY, (Reported) Entered as Reported by: CONRAD SÁNCHEZ on 02/13/15 0910 Fluoxetine HCl (Fluoxetine HCl) 20 Mg Tablet, 20 MG PO DAILY, (Reported) Entered as Reported by: JAMAR BORGES on 04/30/21 1440 Fluticasone Propionate (Fluticasone Propionate) 16 Gm Custer.susp, 2 SPRAYS NS DAILY, (Reported) Entered as Reported by: CONRAD SÁNCHEZ on 04/14/18 1009 Furosemide (Furosemide) 40 Mg Tablet, 40 MG PO DAILY, (Reported) Entered as Reported by: YUE SHANE on 12/29/19 1013 Insulin Determir (Levemir) 1,000 Units/10 Ml Soln, 35 UNITS SQ DAILY, (Reported) Entered as Reported by: JAMAR BORGES on 04/30/21 1440 Insulin Lispro (Humalog) 100 Unit/1 Ml Cartridge, 20 UNIT SQ WM, (Reported) Entered as Reported by: JAMAR BORGES on 04/30/21 1440 Ipratropium/Albuterol Sulfate (Iprat-Albut 0.5-3(2.5) mg/3 ml) 3 Ml Ampul.neb, 3 ML NEB Q4H PRN for SHORTNESS OF BREATH, (Reported) Entered as Reported by: CONRAD SÁNCHEZ on 02/06/16 0854 Levothyroxine Sodium (Levothyroxine Sodium) 75 Mcg Tablet, 75 MCG PO DAILY, (Reported) Entered as Reported by: YUE SHANE on 12/29/19 1013 Lisinopril (Lisinopril) 40 Mg Tablet, 40 MG PO DAILY, (Reported) Entered as Reported by: JAMAR BORGES on 04/30/21 1440 Metoprolol Succinate (Metoprolol Succinate) 25 Mg Tab.er.24h, 25 MG PO DAILY Prescribed by: FRANTZ GROVE on 12/29/19 1113 Montelukast Sodium (Montelukast Sodium) 10 Mg Tablet, 10 MG PO HS, (Reported) Entered as Reported by: MICHELLE JORDAN on 07/11/17 1153 Multivit-Min/FA/Lycopene/Lut (Centrum Silver Tablet) 1 Each Tablet, 1 TAB PO DAILY, (Reported) Entered as Reported by: CONRAD SÁNCHEZ on 04/14/18 1009 [place]-3 Acid Ethyl Esters ([place]-3 Acid Ethyl Esters) 1 Gm Capsule, 2 GM PO BID, (Reported) Entered as Reported by: YUE SHANE on 12/29/19 1013 Potassium Chloride (K-Tab ER) 10 Meq Tablet.er, 10 MEQ PO BID, (Reported) Entered as Reported by: YUE SHANE on 12/29/19 1013 Pregabalin (Lyrica) 75 Mg Capsule, 75 MG PO TID, (Reported) Entered as Reported by: CONRAD SÁNCHEZ on 04/14/18 1009 Umeclidinium [place] (Incruse Ellipta) 62.5 Mcg Blst.w.dev, 62.5 MCG IH DAILY, (Reported) Entered as Reported by: JAMAR BORGES on 04/30/21 1440 Review of Systems Review of Systems Constitutional: no symptoms reported EENTM: No Symptoms Reported Respiratory: No Symptoms Reported Cardiovascular: No Symptoms Reported Gastrointestinal: See HPI Genitourinary: No Symptoms Reported Musculoskeletal: no symptoms reported Skin: no symptoms reported Psychiatric/Neurological: No Symptoms Reported Endocrine: No Symptoms Reported Hematologic/Lymphatic: No Symptoms Reported Past Wlsxntx-Wcmeaf-Plhaqq Hx Immunizations Up To Date Tetanus Booster (TDap): Unknown PED Vaccines UTD: Yes First/Initial COVID19 Vaccinat: MARCH 2020 Second COVID19 Vaccination Carlos: APRIL 2020 Third COVID19 Vaccination Date: DECEMBER 2020 Seasonal Allergies Seasonal Allergies: Yes Past Medical History Surgeries: Yes (Pancreatic biopsies) Appendectomy, Gallbladder, 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, Orthopedic Respiratory: Yes (02 at 3 l cont) Asthma, COPD Currently Using CPAP: Yes Currently Using BIPAP: No Cardiac: Yes Coronary Artery Disease, Hypertension Neurological: No 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 Disorders: 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, Menopausal Sexually Transmitted Disease: No Genitourinary: Yes Kidney Stones Gastrointestinal: Yes (Cystic neoplasm of the pancreatic head) Gastroesophageal Reflux, Polyps Musculoskeletal: Yes (NECK PAIN, CERVICAL STENOSIS, CARPAL TUNNEL SYNDROME) Arthritis, Fibromyalgia, Rheumatoid Arthritis, Chronic Back Pain Endocrine: Yes Hypothyroidsim, Diabetes, Non-Insulin dep HEENT: Yes (VOCAL CORD SPASM/LARYNGOSPASM;GLASSES;DENTURES) Loss of Vision: Denies Hearing Impairment: Denies Cancer: No Psychosocial: Yes Anxiety, Depression Integumentary: No Blood Disorders: No Adverse Reaction/Blood Tranf: No Family Medical History Cancer 03 MOTHER (lung cancer 1987) Cardiovascular disease G8 BROTHER G8 SISTER Diabetes mellitus G8 SISTER Family history: Asthma 03 MOTHER Family history: Cardiovascular disease 03 FATHER Family history: Hypertension 03 MOTHER Family history: Osteoporosis 03 MOTHER History of - respiratory disease Hypertension G8 BROTHER G8 SISTER Respiratory disorder G8 BROTHER (LUNG CA) Stroke 03 MOTHER (1969, stroke paraylsis lower extremies w/c ) Physical Exam Vital Signs Vital Signs - First Documented 06/06/21 13:10 Temp 35.3 Pulse 77 Resp 16 B/P (MAP) 196/107 (136) Pulse Ox 99 O2 Delivery Room Air Capillary Refill : Height/Weight/BMI Height: 5'7.50" Weight: 236lbs. 0.0oz. 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, no motor/sensory deficits, alert, normal mood/affect, oriented x 3 Skin: normal color, warm/dry Procedures/Interventions Date of ETT Placement: Dec 25, 2019 Time of ETT Placement: 2024 Progress/Results/Core Measures Results/Orders Lab Results Laboratory Tests Test 06/06/21 13:28 06/06/21 14:31 Range/Units White Blood Count 9.4 4.3-11.0 10^3/uL Red Blood Count 4.75 3.80-5.11 10^6/uL Hemoglobin 13.6 11.5-16.0 g/dL Hematocrit 41 35-52 % Mean Corpuscular Volume 85 80-99 fL Mean Corpuscular Hemoglobin 29 25-34 pg Mean Corpuscular Hemoglobin Concent 34 32-36 g/dL Red Cell Distribution Width 13.0 10.0-14.5 % Platelet Count 237 130-400 10^3/uL Mean Platelet Volume 10.7 9.0-12.2 fL Immature Granulocyte % (Auto) 1 % Neutrophils (%) (Auto) 68 42-75 % Lymphocytes (%) (Auto) 24 12-44 % Monocytes (%) (Auto) 7 0-12 % Eosinophils (%) (Auto) 1 0-10 % Basophils (%) (Auto) 0 0-10 % Neutrophils # (Auto) 6.4 1.8-7.8 10^3/uL Lymphocytes # (Auto) 2.2 1.0-4.0 10^3/uL Monocytes # (Auto) 0.6 0.0-1.0 10^3/uL Eosinophils # (Auto) 0.1 0.0-0.3 10^3/uL Basophils # (Auto) 0.0 0.0-0.1 10^3/uL Immature Granulocyte # (Auto) 0.1 0.0-0.1 10^3/uL Sodium Level 138 135-145 MMOL/L Potassium Level 3.7 3.6-5.0 MMOL/L Chloride Level 108 H 98-107 MMOL/L Carbon Dioxide Level 17 L 21-32 MMOL/L Anion Gap 13 5-14 MMOL/L Blood Urea Nitrogen 12 7-18 MG/DL Creatinine 1.02 0.60-1.30 MG/DL Estimat Glomerular Filtration Rate 60 BUN/Creatinine Ratio 12 Glucose Level 228 H 70-105 MG/DL Calcium Level 9.5 8.5-10.1 MG/DL Corrected Calcium 9.3 8.5-10.1 MG/DL Magnesium Level 1.8 1.6-2.4 MG/DL Total Bilirubin 1.4 H 0.1-1.0 MG/DL Aspartate Amino Transf (AST/SGOT) 15 5-34 U/L Alanine Aminotransferase (ALT/SGPT) 16 0-55 U/L Alkaline Phosphatase 62 40-136 U/L C-Reactive Protein High Sensitivity 6.08 H 0.00-0.50 MG/DL Total Protein 6.4 6.4-8.2 GM/DL Albumin 4.2 3.2-4.5 GM/DL Lipase 69 8-78 U/L Urine Color YELLOW Urine Clarity CLEAR Urine pH 6.5 5-9 Urine Specific [place] 1.010 L 1.016-1.022 Urine Protein TRACE H NEGATIVE Urine Glucose (UA) TRACE H NEGATIVE Urine Ketones NEGATIVE NEGATIVE Urine Nitrite NEGATIVE NEGATIVE Urine Bilirubin 1+ H NEGATIVE Urine Urobilinogen >=8.0 < = 1.0 MG/DL Urine Leukocyte Esterase TRACE H NEGATIVE Urine RBC (Auto) NEGATIVE NEGATIVE Urine RBC RARE /HPF Urine WBC RARE /HPF Urine Squamous Epithelial Cells NONE /HPF Urine Crystals NONE /LPF Urine Bacteria NEGATIVE /HPF Urine Casts NONE /LPF Urine Mucus NEGATIVE /LPF Urine Culture Indicated NO My Orders Orders - DAV GONZALEZ MD Fentanyl Inj (Sublimaze Injection) (06/06/21 13:30) Ondansetron Injection (Zofran Injectio (06/06/21 13:30) Famotidine Injection (Pepcid Injection) (06/06/21 13:30) Ed Iv/Invasive Line Start (06/06/21 13:20) Lactated Ringers (Lr 1000 Ml Iv Solution (06/06/21 13:30) Cbc With Automated Diff (06/06/21 13:20) Comprehensive Metabolic Panel (06/06/21 13:20) Hs C Reactive Protein (06/06/21 13:20) Lipase (06/06/21 13:20) Magnesium (06/06/21 13:20) Ua Culture If Indicated (06/06/21 13:20) Hydromorphone Injection (Dilaudid Inject (06/06/21 13:45) Promethazine Injection (Phenergan Injec (06/06/21 13:45) Ct Abdomen/Pelvis W (06/06/21 13:58) Iohexol Injection (Omnipaque 350 Mg/Ml 1 (06/06/21 14:15) Received Contrast (Hold Metformin- Contr (06/06/21 14:15) Ns (Ivpb) (Sodium Chloride 0.9% Ivpb Bag (06/06/21 14:15) Pantoprazole Injection (Protonix Injecti (06/06/21 15:15) Hydromorphone Injection (Dilaudid Inject (06/06/21 15:15) Medications Given in ED Current Medications Medications Dose Ordered Sig/Dominique Route Start Time Stop Time Status Last Admin Dose Admin Famotidine 20 mg ONCE ONCE IVP 06/06/21 13:30 06/06/21 13:31 DC 06/06/21 13:34 20 MG Fentanyl Citrate 75 mcg ONCE ONCE IVP 06/06/21 13:30 06/06/21 13:31 DC 06/06/21 13:32 75 MCG Hydromorphone HCl 0.5 mg ONCE ONCE IV 06/06/21 13:45 06/06/21 13:46 DC 06/06/21 13:49 0.5 MG Iohexol 100 ml ONCE ONCE IV 06/06/21 14:15 06/06/21 14:16 DC 06/06/21 14:26 100 ML Lactated Ringer's 1,000 ml @ 0 mls/hr Q0M ONCE IV 06/06/21 13:30 06/06/21 13:31 DC 06/06/21 13:36 1,000 MLS/HR Ondansetron HCl 8 mg ONCE ONCE IVP 06/06/21 13:30 06/06/21 13:31 DC 06/06/21 13:34 8 MG Promethazine HCl 25 mg ONCE ONCE IVP 06/06/21 13:45 06/06/21 13:46 DC 06/06/21 13:49 25 MG Sodium Chloride 100 ml ONCE ONCE IV 06/06/21 14:15 06/06/21 14:16 DC 06/06/21 14:26 80 ML Vital Signs/I&O 06/06/21 13:10 Temp 35.3 Pulse 77 Resp 16 B/P (MAP) 196/107 (136) Pulse Ox 99 O2 Delivery Room Air Blood Pressure Mean: 136 Progress Progress Note #1: Time: 14:54 Progress Note Patient was treated with fentanyl and Zofran. She still had significant pain, and pain was further treated with Dilaudid. Residual nausea was treated with Phenergan. IV fluids were administered with LR [address] scan was obtained after symptoms were controlled. Progress Note #2: Time: 15:30 Progress Note We eventually achieved control of the nausea and vomiting with the doses of Zofran and Phenergan. However, pain was rapidly rebounding even after fentanyl and Dilaudid. An additional dose of Dilaudid 1 mg IV was given prior to admiss ion. Protonix was also ordered to administer in the ER. CT was viewed by me and report reviewed. I discussed the findings with Dr. Galindo. The CT appears to identify either duodenitis or early pancreatitis possibly triggered by the biopsy. Dr. Galindo did not believe any procedural interventions were necessary at this time and recommended supportive care. Supportive care was offered to the patient with an observation admission. Patient eagerly accepted this invitation as she was feeling quite miserable. Dr. Alvarez excepts admission. CODE STATUS was discussed with the patient, and she would like to remain full code. Dr. Galindo's assistance with this case was greatly appreciated. He requested I place his cell phone number in the chart, . Diagnostic Imaging Diagonstic Imaging: CT Plain Films/CT/US/NM/MRI: abdomen, pelvis Comments CT abdomen and pelvis viewed by me and report reviewed. See report below: NAME: VALENTÍN ROWAN MED REC#: [id number] PT STATUS: REG ER : 1950 PHYSICIAN: DAV GONZALEZ MD ADMIT DATE: 06/06/21/ER Draft Date of Exam:06/06/21 CT ABDOMEN/PELVIS W PROCEDURE: CT abdomen and pelvis with contrast. TECHNIQUE: Multiple contiguous axial images were obtained through the abdomen and pelvis after administration of intravenous contrast. Auto Exposure Controls were utilized during the CT exam to meet ALARA standards for radiation dose reduction. All CT scans use one or more of the following dose optimizing techniques: Automated exposure control, MA and/or KvP adjustment based on patient size and exam type or iterative reconstruction. INDICATION: Abdominal pain, cystic neoplasm of the pancreas. COMPARISON: 08/30/2016. FINDINGS: Bibasilar peripheral reticular opacities are present. Cholecystectomy. Mild intrahepatic biliary dilatation is present, appearing more prominent than the prior examination. The common bile duct measures up to 1.0 cm, which is at the upper limits of normal given post-cholecystectomy status, though this has increased since the prior examination in 2017. No pancreatic ductal dilatation. 1.3 x 0.9 cm cystic hypodensity is identified within the uncinate process of the pancreas. This appears minimally more prominent than prior examination in 2017 when it measured 1.1 x 0.8 cm. Fat stranding is identified about the pancreatic head and adjacent to the distal stomach and proximal duodenum. No discrete focal fluid collection. 1.6 cm hypodensity within the right hepatic lobe is present, appearing relatively similar to 2017, favored to relate to a cyst. Calcified splenic granuloma. Otherwise, the spleen is unremarkable. The adrenal glands are unremarkable. Right renal cyst. No evidence of hydronephrosis. Moderate vascular calcifications within the abdominal aorta and its branch vessels without aneurysmal dilatation of the abdominal aorta. No bowel obstruction or pneumatosis. No significant adenopathy, free air, or free fluid within the abdomen or pelvis. Scattered osseous degenerative changes without acute osseous abnormality. IMPRESSION: Fluid and inflammatory stranding about the head of the pancreas and distal stomach/proximal duodenum. Findings are favored to relate to pancreatitis, though duodenitis with reactive changes would be an additional consideration. Small cystic lesion within the uncinate process of the pancreas. This appears slightly more prominent than in 2017. This could relate to a low-grade cystic neoplasm. Alternatively, this could simply relate to sequelae of remote pancreatitis. A follow-up CT of the abdomen with contrast within 6-12 months is recommended to reevaluate. Increasing prominence of the intrahepatic biliary tree and common bile duct. This has minimally increased since 2017 and could simply relate to reservoir effect status post cholecystectomy. Recommend correlation with laboratory values to evaluate for true underlying biliary obstruction. Additional findings as above. Dictated on workstation # [id number] Dict: 06/06/21 1436 Trans: 06/06/21 1456 [id number] Interpreted by: JOSIAH SERRANO MD Departure Communication (Admissions) Time/Spoke to Admitting Phy: 15:21 Dr. Alvarez Impression Primary Impression: Upper abdominal pain Additional Impressions: Nausea & vomiting Qualified Codes: R11.2 - Nausea with vomiting, unspecified Pancreatic cyst Disposition: ADMITTED INPATIENT Condition: Improved Admissions Decision to Admit Reason: Admit from ER (General) Decision to Admit/Date: Jun 06, 2021 Time/Decision to Admit Time: 15:15 Departure-Patient Inst. Referrals: [facility] (PCP/Family) Primary Care Physician Copy Copies To 1: RICHIE ALVAREZ MD, JOSHUA T MD Jun 06, 2021 14:55
[2021-06-06 15:06] LABS: BACTERIA,URINE NEGATIVE /HPF; BILIRUBIN,URINE 1+ (NEGATIVE); RBC,URINE RARE /HPF; WBC,URINE RARE /HPF
[2021-06-06] MEDS ORDERED: PANTOPRAZOLE 40 MG (PROTONIX) VIAL IV ONE (15:15)
[2021-06-06] MEDS ORDERED: PROMETHAZINE INJ 25 MG/ML (PHENERGAN) AMP IV PRN (16:45)
[2021-06-06] MEDS ORDERED: ONDANSETRON 4 MG/2 ML (SDV) Z0FRAN IV PRN (16:45)
[2021-06-06] MEDS ORDERED: CATHETER FLUSH 10 ML SYR IVP PRN (16:45)
[2021-06-06] MEDS: LACTATED RINGERS 1,000 ML IV SCH ×2 (16:56→23:41)
[2021-06-06] MEDS: fentaNYL INJ 100 MCG/2 ML AMP IV PRN ×2 (16:57→21:20)
[2021-06-06] MEDS: ENOXAPARIN 40 MG/0.4 ML (LOVENOX) SYR SQ SCH (18:37)
[2021-06-06] MEDS: HYDROmorphone 2 MG/ML VIAL (DILAUDID) IV PRN ×2 (18:39→23:39)
[2021-06-06 20:21] VITALS: BP 136/69
[2021-06-06] MEDS: inSUlin ASPART (NovoLOG) 1 UNIT/0.01 ML (CHARGE PER UNIT) SC SCH (21:05)
[2021-06-06] MEDS: PANTOPRAZOLE 40 MG (PROTONIX) VIAL IV SCH (21:11)
[2021-06-06 23:30] VITALS: BP 173/75
[2021-06-07] MEDS: fentaNYL INJ 100 MCG/2 ML AMP IV PRN ×2 (02:33→06:48)
[2021-06-07 04:25] VITALS: BP 139/64
[2021-06-07] MEDS: inSUlin ASPART (NovoLOG) 1 UNIT/0.01 ML (CHARGE PER UNIT) SC SCH ×4 (05:53→20:12)
[2021-06-07 06:40] LABS: ALBUMIN 3.3 GM/DL (3.2-4.5)
[2021-06-07 06:41] LABS: POTASSIUM 3.5 MMOL/L (3.6-5.0)
[2021-06-07 06:42] LABS: CALCIUM 8.6 MG/DL (8.5-10.1)
[2021-06-07 06:43] LABS: TOTAL PROTEIN 5.1 GM/DL (6.4-8.2)
[2021-06-07 06:45] LABS: BILIRUBIN,TOTAL 0.8 MG/DL (0.1-1.0)
[2021-06-07] MEDS: LACTATED RINGERS 1,000 ML IV SCH ×2 (06:46→14:06)
[2021-06-07 06:47] LABS: CREATININE SERUM 0.83 MG/DL (0.60-1.30)
[2021-06-07 07:03] LABS: BASOPHILS % (AUTO) 0 % (0-10); EOSINOPHILS # (AUTO) 0.1 10^3/uL (0.0-0.3); EOSINOPHILS % (AUTO) 1 % (0-10); HEMATOCRIT 33 % (35-52); HEMOGLOBIN 11.1 g/dL (11.5-16.0); LYMPHOCYTES # (AUTO) 2.5 10^3/uL (1.0-4.0); LYMPHOCYTES % (AUTO) 31 % (12-44); MEAN CORPUSCULAR HEMOGLOBIN 29 pg (25-34); MEAN CORPUSCULAR HGB CONC 34 g/dL (32-36); MEAN CORPUSCULAR VOLUME 87 fL (80-99); MEAN PLATELET VOLUME 10.4 fL (9.0-12.2); MONOCYTES # (AUTO) 0.9 10^3/uL (0.0-1.0); MONOCYTES % (AUTO) 11 % (0-12); NEUTROPHILS # (AUTO) 4.6 10^3/uL (1.8-7.8); NEUTROPHILS % (AUTO) 56 % (42-75); PLATELET COUNT 158 10^3/uL (130-400); WHITE BLOOD COUNT 8.2 10^3/uL (4.3-11.0)
[2021-06-07 08:13] VITALS: BP 128/60
[2021-06-07] MEDS: PANTOPRAZOLE 40 MG (PROTONIX) VIAL IV SCH ×2 (09:05→20:19)
[2021-06-07] MEDS: HYDROmorphone 2 MG/ML VIAL (DILAUDID) IV PRN ×2 (09:10→17:27)
[2021-06-07] MEDS ORDERED: FLUO40CA PO (10:44)
[2021-06-07] MEDS ORDERED: DULA4.5P INJ (10:44)
[2021-06-07] MEDS ORDERED: MELA5TAB14 PO (10:44)
[2021-06-07] MEDS ORDERED: INSU100I32 SQ (10:44)
[2021-06-07] MEDS ORDERED: PREG100C55 PO (10:44)
[2021-06-07] MEDS ORDERED: PANT40TA52 PO (10:44)
[2021-06-07] MEDS ORDERED: GLUC1AUT2 INJ (10:44)
[2021-06-07 11:43] VITALS: BP 111/54
[2021-06-07] MEDS ORDERED: oxyCODONE ER 10 MG (OxyCONTIN CR) TAB PO NR (12:30)
[2021-06-07 15:35] VITALS: BP 141/65
--- NOTE | 2021-06-07 15:50 | History & Physical ---
HPI History of Present Illness: 70 yo F that presented with worsening abdominal pain after having a pancreatic cyst biopsied. Patient had an endoscopic bx done on june 04 and since then has been having increasing abdominal pain. States that she has never had anything like this in the past. Denies any N/V. Nothing has helped with the pain. Since coming to the ER she states that the pain medications help for a short time and then the pain comes back. Source: patient Exam Limitations: no limitations Date seen by provider: Jun 07, 2021 Time Seen by Provider: 11:35 Attending Physician Richie Plaza MD PCP Center/[facility] [place] Consult Date of Admission Jun 06, 2021 at 15:27 Home Medications Home Medications Reviewed patient Home Medication Reconciliation performed by pharmacy medication reconciliations school laboratory technician and/or nursing. Patients Allergies have been reviewed. Allergies Coded Allergies: dornase lloyd (Verified Allergy, Unknown, RAPID HEART BEAT, 03/23/17) Penicillins (Verified Adverse Reaction, Mild, NAUSEA, 03/23/17) codeine (Verified Adverse Reaction, Mild, NAUSEA, PT TAKES HYDROCODONE AT HOME, 03/23/17) etomidate (Verified Adverse Reaction, Unknown, seizures, 12/25/19) LDQ-Qcsytx-Oexsse Hx Patient Social History Former smoker/When Quit: May 22, 2001 2nd Hand Smoke Exposure: No Recent Hopitalizations: No Alcohol Use?: No Have you traveled recently?: No Immunizations Up To Date Tetanus Booster (TDap): Unknown Influenza Vaccine Up-to-Date: Yes; Up-to-Date First/Initial COVID19 Vaccinat: MARCH 2020 Second COVID19 Vaccination Carlos: APRIL 2020 Third COVID19 Vaccination Date: DECEMBER 2020 Past Medical History Past Medical History 1. Dysphagia with risk for aspiration per Speech post op cervical fusion.02/03. Resolved per swallow study. 2. DJD 3. COPD- on home O2 4. DM 5. HLP 6. RLE weakness with AFO secondary to "peripheral neuropathy" 7. STACY- recently started on CPAP 8. Morbid Obesity 9. History of LLL pneumonia sp surgery 02/[address] with work up by Dr. Reid in the past 10. Fibromyalgia 11. IBS 12. Coronary artery disease with stenting 13. 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 ACDF C5-7 02/03 2. 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 3. Appendectomy 4. Rotator cuff repair 93 5. Tonsillectomy 6. Tracheostomy 05/09 Family Medical History Family History: Cancer 03 MOTHER (lung cancer 1987) Cardiovascular disease G8 BROTHER G8 SISTER Diabetes mellitus G8 SISTER Family history: Asthma 03 MOTHER Family history: Cardiovascular disease 03 FATHER Family history: Hypertension 03 MOTHER Family history: Osteoporosis 03 MOTHER History of - respiratory disease Hypertension G8 BROTHER G8 SISTER Respiratory disorder G8 BROTHER (LUNG CA) Stroke 03 MOTHER (1969,s stroke paraylsis lower extremies w/c ) Review of Systems (CHC) Constitutional: no symptoms reported; No chills, No fever EENTM: no symptoms reported; No mouth pain, No nose congestion, No nose pain Respiratory: No cough, No dyspnea on exertion; short of breath Cardiovascular: no symptoms reported; No chest pain, No edema, No palpitations Gastrointestinal: abdominal pain; No constipation, No diarrhea; loss of ap petite; No nausea, No vomiting Genitourinary: no symptoms reported; No dysuria, No frequency, No hematuria Musculoskeletal: back pain; No joint pain, No muscle pain Skin: no symptoms reported Psychiatric/Neurological: No Symptoms Reported Reviewed Test Results Reviewed Test Results Lab Laboratory Tests Test 06/06/21 20:25 06/07/21 05:36 06/07/21 06:04 06/07/21 06:56 Range/Units Glucometer 170 H 102 70-110 MG/DL Sodium Level 138 135-145 MMOL/L Potassium Level 3.5 L 3.6-5.0 MMOL/L Chloride Level 108 H 98-107 MMOL/L Carbon Dioxide Level 19 L 21-32 MMOL/L Anion Gap 11 5-14 MMOL/L Blood Urea Nitrogen 9 7-18 MG/DL Creatinine 0.83 0.60-1.30 MG/DL Estimat Glomerular Filtration Rate 77 BUN/Creatinine Ratio 11 Glucose Level 107 H 70-105 MG/DL Calcium Level 8.6 8.5-10.1 MG/DL Corrected Calcium 9.2 8.5-10.1 MG/DL Total Bilirubin 0.8 0.1-1.0 MG/DL Aspartate Amino Transf (AST/SGOT) 12 5-34 U/L Alanine Aminotransferase (ALT/SGPT) 13 0-55 U/L Alkaline Phosphatase 51 40-136 U/L Total Protein 5.1 L 6.4-8.2 GM/DL Albumin 3.3 3.2-4.5 GM/DL Lipase 25 8-78 U/L White Blood Count 8.2 4.3-11.0 10^3/uL Red Blood Count 3.81 3.80-5.11 10^6/uL Hemoglobin 11.1 L 11.5-16.0 g/dL Hematocrit 33 L 35-52 % Mean Corpuscular Volume 87 80-99 fL Mean Corpuscular Hemoglobin 29 25-34 pg Mean Corpuscular Hemoglobin Concent 34 32-36 g/dL Red Cell Distribution Width 13.2 10.0-14.5 % Platelet Count 158 130-400 10^3/uL Mean Platelet Volume 10.4 9.0-12.2 fL Immature Granulocyte % (Auto) 0 % Neutrophils (%) (Auto) 56 42-75 % Lymphocytes (%) (Auto) 31 12-44 % Monocytes (%) (Auto) 11 0-12 % Eosinophils (%) (Auto) 1 0-10 % Basophils (%) (Auto) 0 0-10 % Neutrophils # (Auto) 4.6 1.8-7.8 10^3/uL Lymphocytes # (Auto) 2.5 1.0-4.0 10^3/uL Monocytes # (Auto) 0.9 0.0-1.0 10^3/uL Eosinophils # (Auto) 0.1 0.0-0.3 10^3/uL Basophils # (Auto) 0.0 0.0-0.1 10^3/uL Immature Granulocyte # (Auto) 0.0 0.0-0.1 10^3/uL Test 06/07/21 10:03 06/07/21 14:53 Range/Units Glucometer 105 110 70-110 MG/DL Physical Exam-(CHC) Physical Exam Vital Signs VS - Last 72 Hours, by Label 06/06/21 06/06/21 06/06/21 06/06/21 13:10 16:19 16:44 20:00 Temp 35.3 Pulse 77 77 Resp 16 16 B/P (MAP) 196/107 (136) 164/74 Pulse Ox 99 98 O2 Delivery Room Air Room Air Nasal Cannula Nasal Cannula O2 Flow Rate 3.00 3.00 06/06/21 06/06/21 06/07/21 06/07/21 20:21 23:30 04:25 08:13 Temp 36.6 37.1 37.0 38.1 Pulse 64 60 65 66 Resp 20 20 18 20 B/P (MAP) 136/69 (91) 173/75 (107) 139/64 (89) 128/60 (82) Pulse Ox 98 96 97 94 O2 Delivery Room Air Nasal Cannula Nasal Cannula Nasal Cannula O2 Flow Rate 2.00 1.00 1.00 06/07/21 06/07/21 06/07/21 06/07/21 09:00 11:37 11:43 15:35 Temp 36.2 37.4 Pulse 63 62 Resp 18 20 B/P (MAP) 111/54 (73) 141/65 (90) Pulse Ox 96 96 95 O2 Delivery Nasal Cannula Nasal Cannula Nasal Cannula Nasal Cannula O2 Flow Rate 1.00 1.00 1.00 1.00 Capillary Refill : General Appearance: WD/WN, mild distress (due to pain) HEENT: PERRL/EOMI Neck: non-tender, full range of motion, supple Respiratory: chest non-tender, lungs clear, normal breath sounds, no respiratory distress, no accessory muscle use Cardiovascular: normal peripheral pulses, regular rate, rhythm, no murmur Gastrointestinal: normal bowel sounds, soft, tenderness (epigastric) Back: no CVA tenderness, no vertebral tenderness Extremities: normal range of motion, non-tender, normal inspection, no calf tenderness, normal capillary refill, pedal edema (1+ equal bilaterally) 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 Continue CLD until pain improves (2) Pancreatic cyst Status: Chronic RICHIE PLAZA MD Jun 07, 2021 15:50
[2021-06-07] MEDS: ENOXAPARIN 40 MG/0.4 ML (LOVENOX) SYR SQ SCH (17:24)
[2021-06-07 19:36] VITALS: BP 139/66
[2021-06-07] MEDS: oxyCODONE ER 10 MG (OxyCONTIN CR) TAB PO SCH (20:19)
[2021-06-07] MEDS: PREGABALIN 100 MG (LYRICA) CAPSULE PO SCH (20:19)
[2021-06-08] MEDS: LACTATED RINGERS 1,000 ML IV SCH ×3 (00:04→18:37)
[2021-06-08 00:39] VITALS: BP 136/72
[2021-06-08 04:07] VITALS: BP 124/69
[2021-06-08 05:51] LABS: BASOPHILS % (AUTO) 0 % (0-10); EOSINOPHILS # (AUTO) 0.1 10^3/uL (0.0-0.3); EOSINOPHILS % (AUTO) 2 % (0-10); HEMATOCRIT 32 % (35-52); HEMOGLOBIN 10.7 g/dL (11.5-16.0); LYMPHOCYTES # (AUTO) 2.4 10^3/uL (1.0-4.0); LYMPHOCYTES % (AUTO) 40 % (12-44); MEAN CORPUSCULAR HEMOGLOBIN 29 pg (25-34); MEAN CORPUSCULAR HGB CONC 33 g/dL (32-36); MEAN CORPUSCULAR VOLUME 87 fL (80-99); MEAN PLATELET VOLUME 10.7 fL (9.0-12.2); MONOCYTES # (AUTO) 0.6 10^3/uL (0.0-1.0); MONOCYTES % (AUTO) 10 % (0-12); NEUTROPHILS # (AUTO) 2.9 10^3/uL (1.8-7.8); NEUTROPHILS % (AUTO) 48 % (42-75); PLATELET COUNT 149 10^3/uL (130-400)
[2021-06-08 06:03] LABS: ALBUMIN 3.1 GM/DL (3.2-4.5); POTASSIUM 3.5 MMOL/L (3.6-5.0)
[2021-06-08 06:04] LABS: CALCIUM 8.8 MG/DL (8.5-10.1)
[2021-06-08 06:05] LABS: TOTAL PROTEIN 4.9 GM/DL (6.4-8.2)
[2021-06-08] MEDS: inSUlin ASPART (NovoLOG) 1 UNIT/0.01 ML (CHARGE PER UNIT) SC SCH ×4 (06:08→20:19)
[2021-06-08 06:09] LABS: CREATININE SERUM 0.8 MG/DL (0.60-1.30)
[2021-06-08] MEDS: LEVOTHYROXINE 75 MCG (LEVOTHROID) TABLET PO SCH (06:25)
[2021-06-08 08:07] VITALS: BP 146/72
[2021-06-08] MEDS: UMECLIDINIUM BROMIDE (INCRUSE ELLIPTA) 7'S IH SCH (08:14)
[2021-06-08] MEDS ORDERED: NON-FORMULARY MEDICATION 1 EA EA (Fluoxetine HCl 40 MG) PO SCH (09:00)
[2021-06-08] MEDS: FLUoxetine HCL 20 MG (PROzac) CAP PO SCH (09:29)
[2021-06-08] MEDS: oxyCODONE ER 10 MG (OxyCONTIN CR) TAB PO SCH ×2 (09:30→20:24)
[2021-06-08] MEDS: PREGABALIN 100 MG (LYRICA) CAPSULE PO SCH ×2 (09:30→20:24)
[2021-06-08] MEDS: PANTOPRAZOLE 40 MG (PROTONIX) VIAL IV SCH ×2 (09:31→20:24)
[2021-06-08] MEDS: CLOPIDOGREL 75 MG (PLAVIX) TABLET PO SCH (09:31)
[2021-06-08] MEDS: ASPIRIN 81 MG CHEW (CHILDREN'S ASA) PO SCH (09:31)
[2021-06-08] MEDS: lisINopril 40 MG (PRINIVIL) TABLET PO SCH (09:31)
[2021-06-08 11:31] VITALS: BP 144/73
[2021-06-08 15:05] VITALS: BP 116/68
[2021-06-08] MEDS: HYDROmorphone 2 MG/ML VIAL (DILAUDID) IV PRN ×3 (16:15→23:45)
[2021-06-08] MEDS: ENOXAPARIN 40 MG/0.4 ML (LOVENOX) SYR SQ SCH (17:38)
[2021-06-08 20:25] VITALS: BP 177/79
[2021-06-09 00:20] VITALS: BP 157/88
[2021-06-09] MEDS: HYDROmorphone 2 MG/ML VIAL (DILAUDID) IV PRN ×4 (03:03→17:50)
[2021-06-09 03:55] VITALS: BP 154/79
[2021-06-09] MEDS: LEVOTHYROXINE 75 MCG (LEVOTHROID) TABLET PO SCH (06:14)
[2021-06-09] MEDS: inSUlin ASPART (NovoLOG) 1 UNIT/0.01 ML (CHARGE PER UNIT) SC SCH ×4 (06:17→21:18)
[2021-06-09] MEDS: LACTATED RINGERS 1,000 ML IV SCH (06:19)
--- NOTE | 2021-06-09 06:19 | Progress Note - Hospitalist ---
Subjective HPI/CC On Admission Date Seen by Provider: Jun 09, 2021 Time Seen by Provider: 11:00 Subjective/Events-last exam Patient still having a lot of pain Able to eat Labs normal We will consult Dr. KEEN Volume overload noted so we will Hep-Lock IV fluid Review of Systems General: Fatigue, Malaise Gastrointestinal: Nausea, Abdominal Pain Objective Exam Vital Signs Vital Signs Date Time Temp Pulse Resp B/P (MAP) Pulse Ox O2 Delivery O2 Flow Rate FiO2 06/10/21 04:26 35.9 57 18 176/82 (113) 96 Nasal Cannula 1.00 Capillary Refill : General Appearance: Anxious, Chronically ill, Mild Distress, Obese Respiratory: Lungs Clear, Normal Breath Sounds, Crackles Cardiovascular: Regular Rate, Rhythm Gastrointestinal: Tenderness (Midepigastric) Neurologic/Psychiatric: Alert, Oriented x3 Results/Procedures Lab Laboratory Tests 06/09/21 06:31 06/10/21 05:14 Patient resulted labs reviewed. Assessment/Plan Assessment and Plan Assess & Plan/Chief Complaint Assessment: Severe continued refractory abdominal pain following pancreatic cyst biopsy by Dr. Galindo Friday History of stridor with respiratory insufficiency requiring intubation in 2019 CAD DM on insulin pump h/o trach Obesity Volume overload we will Hep-Lock IV fluid Plan: General surgery consult Supportive care Monitor closely FRANTZ GROVE DO Jun 09, 2021 06:19
[2021-06-09 06:41] LABS: BASOPHILS % (AUTO) 1 % (0-10); EOSINOPHILS # (AUTO) 0.2 10^3/uL (0.0-0.3); EOSINOPHILS % (AUTO) 3 % (0-10); HEMATOCRIT 32 % (35-52); HEMOGLOBIN 10.7 g/dL (11.5-16.0); LYMPHOCYTES # (AUTO) 2.3 10^3/uL (1.0-4.0); LYMPHOCYTES % (AUTO) 41 % (12-44); MEAN CORPUSCULAR HEMOGLOBIN 29 pg (25-34); MEAN CORPUSCULAR HGB CONC 33 g/dL (32-36); MEAN CORPUSCULAR VOLUME 87 fL (80-99); MEAN PLATELET VOLUME 10.7 fL (9.0-12.2); MONOCYTES # (AUTO) 0.5 10^3/uL (0.0-1.0); MONOCYTES % (AUTO) 9 % (0-12); NEUTROPHILS # (AUTO) 2.6 10^3/uL (1.8-7.8); NEUTROPHILS % (AUTO) 46 % (42-75); PLATELET COUNT 166 10^3/uL (130-400); WHITE BLOOD COUNT 5.7 10^3/uL (4.3-11.0)
[2021-06-09 06:49] LABS: ALBUMIN 3.2 GM/DL (3.2-4.5); POTASSIUM 3.5 MMOL/L (3.6-5.0)
[2021-06-09 06:50] LABS: CALCIUM 8.8 MG/DL (8.5-10.1)
[2021-06-09 06:51] LABS: TOTAL PROTEIN 5.2 GM/DL (6.4-8.2)
[2021-06-09 06:53] LABS: BILIRUBIN,TOTAL 0.6 MG/DL (0.1-1.0)
[2021-06-09 06:55] LABS: CREATININE SERUM 0.84 MG/DL (0.60-1.30)
[2021-06-09] MEDS: UMECLIDINIUM BROMIDE (INCRUSE ELLIPTA) 7'S IH SCH (07:18)
[2021-06-09 07:21] VITALS: BP 132/66
[2021-06-09] MEDS: PREGABALIN 100 MG (LYRICA) CAPSULE PO SCH ×2 (08:08→20:35)
[2021-06-09] MEDS: lisINopril 40 MG (PRINIVIL) TABLET PO SCH (08:08)
[2021-06-09] MEDS: oxyCODONE ER 10 MG (OxyCONTIN CR) TAB PO SCH ×2 (08:08→20:35)
[2021-06-09] MEDS: FLUoxetine HCL 20 MG (PROzac) CAP PO SCH (08:08)
[2021-06-09] MEDS: ASPIRIN 81 MG CHEW (CHILDREN'S ASA) PO SCH (08:08)
[2021-06-09] MEDS: CLOPIDOGREL 75 MG (PLAVIX) TABLET PO SCH (08:08)
[2021-06-09] MEDS: PANTOPRAZOLE 40 MG (PROTONIX) VIAL IV SCH ×2 (08:08→20:35)
[2021-06-09 11:15] VITALS: BP 137/67
[2021-06-09 16:00] VITALS: BP 134/67
--- NOTE | 2021-06-09 16:35 | CONSULTATION REPORT ---
DATE OF SERVICE: 06/09/2021 ATTENDING CRYPTOLOGIC TECHNICIAN: [facility]. ADMITTING PHYSICIAN: Dr. Plaza. HISTORY OF PRESENT ILLNESS: The patient is a 70-year-old female who presented to the Emergency Department with abdominal pain. She underwent a biopsy of the pancreatic cyst along the uncinate process on 06/04/2021 and since that time, she states that she has had increasing abdominal pain. She does not report any nausea, nor vomiting as well as no major issues with diarrhea nor constipation as well as no red blood per rectum nor any dark tarry stools. Another finding on the CT scan was a slight dilatation of the common bile duct; however, this is not uncommon after cholecystectomy. Her liver function enzymes as well as amylase and lipase at this time are normal. There is also some fat stranding around the head of the pancreas, which may indicate an early mild pancreatitis. PAST MEDICAL HISTORY: Degenerative joint disease, COPD, diabetes, hyperlipidemia, obstructive sleep apnea, morbid obesity, fibromyalgia, irritable bowel syndrome, coronary artery disease, laryngeal spasms, diabetes. PAST SURGICAL HISTORY: Cardiac catheterization and stent placement, tracheostomy placement 05/09. pacemaker implantation, total hysterectomy, appendectomy, rotator cuff repair in 93, tonsillectomy. ALLERGIES: DORNASE LAURA, PENICILLIN, CODEINE, ETOMIDATE. MEDICATIONS: Albuterol inhaler 2 puffs q.4 hours p.r.n., aspirin 81 mg daily, atorvastatin 80 mg daily, cetirizine 10 mg daily, Plavix 75 mg daily, fenofibrate 145 mg daily, fluoxetine 20 mg daily, fluticasone 16 grams spray daily, furosemide 40 mg daily, detemir insulin 35 units daily, lispro insulin 20 units 2 times a week, levothyroxine 75 mcg daily, lisinopril 40 mg daily, metoprolol 25 mg daily, montelukast 10 mg daily, potassium 10 mEq b.i.d., pregabalin 75 mg t.i.d. SOCIAL HISTORY: Previous smoke, negative alcohol. FAMILY HISTORY: Mother, lung cancer. Brother, lung cancer. REVIEW OF SYSTEMS: This is a well-nourished female, currently in no acute distress. She is not experiencing any shortness of breath or difficulty breathing. No chest pain, palpitations, diaphoresis. No nausea, vomiting and he is tolerating a regular diet. She does not report any diarrhea nor constipation as well as no red blood per rectum nor any dark tarry stools. No fever, chills, no recent inadvertent weight loss. All other review of systems negative. PHYSICAL EXAMINATION: VITAL SIGNS: Temperature 37.0, blood pressure 137/67, pulse 55, respirations 18, pulse ox 92% on 1 liter nasal cannula. CHEST: A few distant breath sounds and scattered wheezes bilaterally. HEART: Regular, no murmurs. EXTREMITIES: +1/3 bilateral lower extremity edema, negative Homans sign. HEENT: No scleral icterus. NECK: No cervical lymphadenopathy. ABDOMEN: Soft, nondistended. There is pain in the epigastric region upon deep palpation. No peritoneal signs. SKIN: Warm, dry. LABORATORY DATA: WBC 5.7, hemoglobin 10.7, hematocrit 32, platelets 166. BUN 8, creatinine 0.84. Liver function enzymes as well as lipase are normal. ASSESSMENT AND PLAN: A 70-year-old female with status post pancreatic cyst percutaneous biopsy with increasing abdominal pain. There is some fat stranding around this area, which may indicate a mild acute pancreatitis. The biliary ducts as well as the pancreatic duct appeared to be intact. This may be secondary to the postoperative effects of the biopsy. We will recommend conservative management for now and get repeat liver function enzymes as well as amylase and lipase tomorrow as well as bowel rest and continued physical examination for worsening abdominal pain. Job ID: [id number] DocumentID: [id number] Dictated Date: 06/09/2021 16:04:58 Cinnamon Grinder Date: 06/09/2021 16:34:32 Dictated By: AZUCENA KEEN MD MTDD
[2021-06-09] MEDS: ENOXAPARIN 40 MG/0.4 ML (LOVENOX) SYR SQ SCH (17:44)
[2021-06-09] MEDS: RT-ALBUTEROL SULF 2.5 MG/3 ML PRE-MIX VIAL INH SCH (19:03)
[2021-06-09 20:00] VITALS: BP 167/68
[2021-06-10 00:25] VITALS: BP 168/78
[2021-06-10] MEDS: HYDROmorphone 2 MG/ML VIAL (DILAUDID) IV PRN ×3 (03:53→10:10)
[2021-06-10 04:26] VITALS: BP 176/82
[2021-06-10] MEDS: inSUlin ASPART (NovoLOG) 1 UNIT/0.01 ML (CHARGE PER UNIT) SC SCH ×4 (05:14→20:05)
[2021-06-10 05:30] LABS: BASOPHILS % (AUTO) 0 % (0-10); EOSINOPHILS # (AUTO) 0.2 10^3/uL (0.0-0.3); EOSINOPHILS % (AUTO) 3 % (0-10); HEMATOCRIT 34 % (35-52); LYMPHOCYTES # (AUTO) 2.3 10^3/uL (1.0-4.0); LYMPHOCYTES % (AUTO) 39 % (12-44); MEAN CORPUSCULAR HEMOGLOBIN 28 pg (25-34); MEAN CORPUSCULAR HGB CONC 33 g/dL (32-36); MEAN CORPUSCULAR VOLUME 86 fL (80-99); MEAN PLATELET VOLUME 10.3 fL (9.0-12.2); MONOCYTES # (AUTO) 0.4 10^3/uL (0.0-1.0); MONOCYTES % (AUTO) 8 % (0-12); NEUTROPHILS # (AUTO) 2.9 10^3/uL (1.8-7.8); NEUTROPHILS % (AUTO) 50 % (42-75); PLATELET COUNT 196 10^3/uL (130-400); WHITE BLOOD COUNT 5.8 10^3/uL (4.3-11.0)
[2021-06-10 05:43] LABS: ALBUMIN 3.4 GM/DL (3.2-4.5); POTASSIUM 3.7 MMOL/L (3.6-5.0)
[2021-06-10 05:44] LABS: CALCIUM 9.2 MG/DL (8.5-10.1)
[2021-06-10 05:46] LABS: TOTAL PROTEIN 5.5 GM/DL (6.4-8.2)
[2021-06-10] MEDS: LEVOTHYROXINE 75 MCG (LEVOTHROID) TABLET PO SCH (05:46)
[2021-06-10 05:47] LABS: BILIRUBIN,TOTAL 0.6 MG/DL (0.1-1.0)
[2021-06-10 05:49] LABS: CREATININE SERUM 0.94 MG/DL (0.60-1.30)
[2021-06-10] MEDS ORDERED: FLUTICASONE NASAL SPRAY (FLONASE) 16 GM BTL NS PRN (06:15)
[2021-06-10] MEDS ORDERED: NON-FORMULARY MEDICATION 1 EA EA (Dulaglutide (Trulicity) 4.5 MG) INJ SCH (06:15)
[2021-06-10] MEDS ORDERED: INSULIN LISPRO SCH (06:15)
[2021-06-10] MEDS: PANTOPRAZOLE 40 MG (PROTONIX) TAB PO SCH ×2 (06:46→15:55)
--- NOTE | 2021-06-10 06:58 | Progress Note - Hospitalist ---
Subjective HPI/CC On Admission Date Seen by Provider: Jun 10, 2021 Time Seen by Provider: 12:00 Subjective/Events-last exam Patient doing better Pain is getting better Dr. KEEN appreciated Discharge home tomorrow Review of Systems General: Fatigue, Malaise Gastrointestinal: Abdominal Pain Objective Exam Vital Signs Vital Signs Date Time Temp Pulse Resp B/P (MAP) Pulse Ox O2 Delivery O2 Flow Rate FiO2 06/11/21 04:18 36.0 55 20 129/62 (84) 97 Nasal Cannula 1.00 Capillary Refill : General Appearance: No Apparent Distress, WD/WN, Chronically ill, Obese Respiratory: Lungs Clear, Normal Breath Sounds Cardiovascular: Regular Rate, Rhythm Neurologic/Psychiatric: Alert, Oriented x3, No Motor/Sensory Deficits, Normal Mood/Affect Results/Procedures Lab Laboratory Tests 06/10/21 05:14 Patient resulted labs reviewed. Assessment/Plan Assessment and Plan Assess & Plan/Chief Complaint Assessment: Severe continued refractory abdominal pain following pancreatic cyst biopsy by Dr. Galindo Friday History of stridor with respiratory insufficiency requiring intubation in 2019 CAD DM on insulin pump h/o trach Obesity Volume overload we will Hep-Lock IV fluid Plan: General surgery consult Supportive care Monitor closely 06/10/2021: Supportive care Ambulate FRANTZ GROVE DO Jun 10, 2021 06:58
[2021-06-10] MEDS: RT-ALBUTEROL SULF 2.5 MG/3 ML PRE-MIX VIAL INH SCH ×3 (07:15→21:51)
[2021-06-10] MEDS: UMECLIDINIUM BROMIDE (INCRUSE ELLIPTA) 7'S IH SCH (07:17)
[2021-06-10 08:00] VITALS: BP 156/65
[2021-06-10] MEDS: PANTOPRAZOLE 40 MG (PROTONIX) VIAL IV SCH (08:03)
[2021-06-10] MEDS: FUROSEMIDE 40 MG (LASIX) TAB PO SCH (08:13)
[2021-06-10] MEDS: FLUoxetine HCL 20 MG (PROzac) CAP PO SCH (08:13)
[2021-06-10] MEDS: OMEGA 3 (FISH OIL) 1000 MG CAP PO SCH ×2 (08:13→20:02)
[2021-06-10] MEDS: PREGABALIN 100 MG (LYRICA) CAPSULE PO SCH ×2 (08:13→20:02)
[2021-06-10] MEDS: oxyCODONE ER 10 MG (OxyCONTIN CR) TAB PO SCH (08:13)
[2021-06-10] MEDS: KCL 10 MEQ TAB (MICRO K) PO SCH ×2 (08:13→17:44)
[2021-06-10] MEDS: CLOPIDOGREL 75 MG (PLAVIX) TABLET PO SCH (08:13)
[2021-06-10] MEDS: lisINopril 40 MG (PRINIVIL) TABLET PO SCH (08:13)
[2021-06-10] MEDS: ASPIRIN 81 MG CHEW (CHILDREN'S ASA) PO SCH (08:13)
[2021-06-10 11:15] VITALS: BP 126/71
[2021-06-10] MEDS: oxyCODONE ER 15 MG (oxyCONTIN CR) TAB PO SCH ×2 (13:57→21:32)
[2021-06-10] MEDS: polyethylene glycoL POWDER 17 GM (MIRALAX) PACK PO SCH ×2 (13:57→20:02)
[2021-06-10] MEDS: SENNA W/DOCUSATE (SENOKOT S) TABLET PO SCH ×2 (13:57→20:01)
[2021-06-10] MEDS: BISACODYL 10 MG SUPP (DULCOLAX) PR SCH (13:58)
[2021-06-10 16:00] VITALS: BP 164/65
[2021-06-10] MEDS: ENOXAPARIN 40 MG/0.4 ML (LOVENOX) SYR SQ SCH (17:44)
[2021-06-10] MEDS ORDERED: MONTELUKAST 10 MG (SINGULAIR) TAB PO SCH (21:00)
[2021-06-10] MEDS ORDERED: MELATONIN 10 MG TABLET PO SCH (21:00)
[2021-06-11 00:45] VITALS: BP 125/63
[2021-06-11 04:18] VITALS: BP 129/62
[2021-06-11] MEDS: inSUlin ASPART (NovoLOG) 1 UNIT/0.01 ML (CHARGE PER UNIT) SC SCH ×2 (05:11→10:21)
[2021-06-11] MEDS: PANTOPRAZOLE 40 MG (PROTONIX) TAB PO SCH (05:54)
[2021-06-11] MEDS: oxyCODONE ER 15 MG (oxyCONTIN CR) TAB PO SCH ×2 (05:54→13:10)
[2021-06-11] MEDS: LEVOTHYROXINE 75 MCG (LEVOTHROID) TABLET PO SCH (05:54)
[2021-06-11 05:57] LABS: BASOPHILS % (AUTO) 0 % (0-10); EOSINOPHILS # (AUTO) 0.2 10^3/uL (0.0-0.3); EOSINOPHILS % (AUTO) 4 % (0-10); HEMATOCRIT 32 % (35-52); HEMOGLOBIN 10.4 g/dL (11.5-16.0); LYMPHOCYTES # (AUTO) 2.2 10^3/uL (1.0-4.0); LYMPHOCYTES % (AUTO) 41 % (12-44); MEAN CORPUSCULAR HEMOGLOBIN 28 pg (25-34); MEAN CORPUSCULAR HGB CONC 33 g/dL (32-36); MEAN CORPUSCULAR VOLUME 86 fL (80-99); MEAN PLATELET VOLUME 10.6 fL (9.0-12.2); MONOCYTES # (AUTO) 0.4 10^3/uL (0.0-1.0); MONOCYTES % (AUTO) 8 % (0-12); NEUTROPHILS # (AUTO) 2.5 10^3/uL (1.8-7.8); NEUTROPHILS % (AUTO) 46 % (42-75); PLATELET COUNT 202 10^3/uL (130-400); WHITE BLOOD COUNT 5.4 10^3/uL (4.3-11.0)
[2021-06-11 06:10] LABS: ALBUMIN 3.4 GM/DL (3.2-4.5); POTASSIUM 3.7 MMOL/L (3.6-5.0)
[2021-06-11 06:11] LABS: CALCIUM 9.2 MG/DL (8.5-10.1)
[2021-06-11 06:12] LABS: TOTAL PROTEIN 5.4 GM/DL (6.4-8.2)
[2021-06-11 06:14] LABS: BILIRUBIN,TOTAL 0.4 MG/DL (0.1-1.0)
[2021-06-11 06:16] LABS: CREATININE SERUM 0.93 MG/DL (0.60-1.30)
[2021-06-11] MEDS: RT-ALBUTEROL SULF 2.5 MG/3 ML PRE-MIX VIAL INH SCH (07:51)
[2021-06-11] MEDS: UMECLIDINIUM BROMIDE (INCRUSE ELLIPTA) 7'S IH SCH (07:56)
[2021-06-11] MEDS: FUROSEMIDE 40 MG (LASIX) TAB PO SCH (08:21)
[2021-06-11] MEDS: PREGABALIN 100 MG (LYRICA) CAPSULE PO SCH (08:21)
[2021-06-11] MEDS: lisINopril 40 MG (PRINIVIL) TABLET PO SCH (08:21)
[2021-06-11] MEDS: OMEGA 3 (FISH OIL) 1000 MG CAP PO SCH (08:21)
[2021-06-11] MEDS: ASPIRIN 81 MG CHEW (CHILDREN'S ASA) PO SCH (08:21)
[2021-06-11] MEDS: KCL 10 MEQ TAB (MICRO K) PO SCH (08:21)
[2021-06-11] MEDS: CLOPIDOGREL 75 MG (PLAVIX) TABLET PO SCH (08:21)
[2021-06-11] MEDS: FLUoxetine HCL 20 MG (PROzac) CAP PO SCH (08:21)
[2021-06-11] MEDS: SENNA W/DOCUSATE (SENOKOT S) TABLET PO SCH (08:24)
[2021-06-11] MEDS: polyethylene glycoL POWDER 17 GM (MIRALAX) PACK PO SCH (08:24)
[2021-06-11 08:32] VITALS: BP 128/63
[2021-06-11] MEDS: BISACODYL 10 MG SUPP (DULCOLAX) PR SCH (09:00)
[2021-06-11 11:28] VITALS: BP 129/59
[2021-06-11] MEDS ORDERED: OXYC15TA73 PO (11:52)
--- NOTE | 2021-06-11 11:54 | Discharge Summary ---
Discharge Summary Hospital Course Was the Problem List Reviewed?: Yes Problems/Dx: (1) Pancreatic cyst Status: Chronic (2) Upper abdominal pain Status: Acute (3) Nausea & vomiting Status: Acute Qualifiers: Qualified Codes: R11.2 - Nausea with vomiting, unspecified Hospital Course Date of Admission: Jun 09, 2021 at 17:50 Admission Diagnosis : Family Physician/Provider: [facility] Date of Discharge: 06/11/21 Discharge Diagnosis: Severe abdominal pain status post pancreatic cyst biopsy by Dr. Galindo, chronic pain syndrome Hospital Course: Pt had an uneventful hospital course after she was admitted for severe abdominal pain following pancreatic pseudocyst to biopsy by Dr. Hong. She had issues requiring IV narcotics. That was transitioned over to Oxycontin by Dr. Sepulveda. He will see her in close follow-up since Dr. Claudio didn't want her on any type of opiod due to pain management issues. She will obtain her care outside of [facility]. Labs and Pending Lab Test: Laboratory Tests 06/10/21 14:32: Glucometer 149H 06/10/21 15:51: Glucometer 177H 06/10/21 20:03: Glucometer 140H 06/11/21 05:10: Glucometer 155H 06/11/21 05:40: White Blood Count 5.4, Red Blood Count 3.71L, Hemoglobin 10.4L, Hematocrit 32L, Mean Corpuscular Volume 86, Mean Corpuscular Hemoglobin 28, Mean Corpuscular Hemoglobin Concent 33, Red Cell Distribution Width 12.9, Platelet Count 202, Mean Platelet Volume 10.6, Immature Granulocyte % (Auto) 1, Neutrophils (%) (Auto) 46, Lymphocytes (%) (Auto) 41, Monocytes (%) (Auto) 8, Eosinophils (%) (Auto) 4, Basophils (%) (Auto) 0, Neutrophils # (Auto) 2.5, Lymphocytes # (Auto) 2.2, Monocytes # (Auto) 0.4, Eosinophils # (Auto) 0.2, Basophils # (Auto) 0.0, Immature Granulocyte # (Auto) 0.0, Sodium Level 140, Potassium Level 3.7, Chloride Level 105, Carbon Dioxide Level 22, Anion Gap 13, Blood Urea Nitrogen 9, Creatinine 0.93, Estimat Glomerular Filtration Rate 67, BUN/Creatinine Ratio 10, Glucose Level 148H, Calcium Level 9.2, Corrected Calcium 9.7, Total Bilirubin 0.4, Aspartate Amino Transf (AST/SGOT) 19, Alanine Aminotransferase (ALT/SGPT) 21, Alkaline Phosphatase 62, Total Protein 5.4L, Albumin 3.4 06/11/21 10:17: Glucometer 145H Home Meds Active Oxycontin (Oxycodone HCl) 15 Mg Tab.er.12h 15 Mg PO Q8HR Reported Melatonin 5 Mg Tablet 5 Mg PO HS Fluoxetine HCl 40 Mg Capsule 40 Mg PO DAILY Trulicity (Dulaglutide) 4.5 Mg/0.5 Ml Pen.injctr 4.5 Mg INJ JILL Tresiba Flextouch U-100 (Insulin Degludec) 100 Unit/1 Ml Insuln.pen 45 Unit SQ DAILY PRN Gvoke Hypopen 2-Pack (Glucagon) 1 Mg/0.2 Ml Auto.injct 1 Mg INJ UD PRN Pregabalin 100 Mg Capsule 100 Mg PO BID Pantoprazole Sodium 40 Mg Tablet.dr 40 Mg PO BID Lisinopril 40 Mg Tablet 40 Mg PO DAILY Humalog (Insulin Lispro) 100 Unit/1 Ml Cartridge 200 Unit EVERY 72 HOURS LOAD 200 UNITS IN INSULIN PUMP EVERY 72 HOURS Incruse Ellipta (Umeclidinium [place]) 62.5 Mcg Blst.w.dev 1 Puff IH DAILY Aspirin 81 Mg Tab.chew 81 Mg PO DAILY Levothyroxine Sodium 75 Mcg Tablet 75 Mcg PO DAILY Atorvastatin Calcium 80 Mg Tablet 80 Mg PO HS Clopidogrel (Clopidogrel Bisulfate) 75 Mg Tablet 75 Mg PO DAILY K-Tab ER (Potassium Chloride) 10 Meq Tablet.er 10 Meq PO BID [place]-3 Acid Ethyl Esters 1 Gm Capsule 2 Gm PO BID TAKES 2 (1GM) CAPS Furosemide 40 Mg Tablet 40 Mg PO DAILY Fluticasone Propionate 16 Gm Orange.susp 2 Sprays NS DAILY PRN Centrum Silver Tablet (Multivit-Min/FA/Lycopene/Lut) 1 Each Tablet 1 Tab PO DAILY Montelukast Sodium 10 Mg Tablet 10 Mg PO HS Assessment/Pt Instructions Obtain new PCP Discharge Planning: <30 minutes discharge planning Discharge Physical Examination Vital Signs Vital Signs Date Time Temp Pulse Resp B/P (MAP) Pulse Ox O2 Delivery O2 Flow Rate FiO2 06/11/21 11:28 36.7 59 16 129/59 (82) 97 Nasal Cannula 3.00 General Appearance: No Apparent Distress, WD/WN, Chronically ill Allergies: Coded Allergies: dornase lloyd (Verified Allergy, Unknown, RAPID HEART BEAT, 03/23/17) Penicillins (Verified Adverse Reaction, Mild, NAUSEA, 03/23/17) codeine (Verified Adverse Reaction, Mild, NAUSEA, PT TAKES HYDROCODONE AT HOME, 03/23/17) etomidate (Verified Adverse Reaction, Unknown, seizures, 12/25/19) Discharge Summary Date of Admission Jun 09, 2021 at 17:50 Date of Discharge Discharge Date: Jun 11, 2021 Discharge Diagnosis Assessment: Severe continued refractory abdominal pain following pancreatic cyst biopsy by Dr. Galindo Friday History of stridor with respiratory insufficiency requiring intubation in 2019 CAD DM on insulin pump h/o trach Obesity Volume overload we will Hep-Lock IV fluid Plan: General surgery consult Supportive care Monitor closely 06/10/2021: Supportive care Ambulate FRANTZ GROVE DO Jun 11, 2021 11:54
[2021-06-11 13:24] VITALS: BP 129/59
== END 2021-06-11 13:20 | disposition home or self-care (01) | DRG 948 ==
LOC: ER 13:09 → EDUNIT# 13:09 → 4TH 15:27 → OBSVTOIN 06-09 17:50
PROVIDERS: ADMIT Family Medicine; ATTEND Internal Medicine
PROC: 8E0ZXY6 Isolation (ICD-10-PCS; principal; 2021-06-06)
DX: G89.18 Other acute postprocedural pain (principal); K86.2 Cyst of pancreas; R10.13 Epigastric pain; E87.70 Fluid overload, unspecified; E11.42 Type 2 diabetes mellitus with diabetic polyneuropathy; K21.9 Gastro-esophageal reflux disease without esophagitis; I10 Essential (primary) hypertension; I25.10 Atherosclerotic heart disease of native coronary artery without angina pectoris; J44.9 Chronic obstructive pulmonary disease, unspecified; G89.4 Chronic pain syndrome; E78.5 Hyperlipidemia, unspecified; G47.33 Obstructive sleep apnea (adult) (pediatric); E66.01 Morbid (severe) obesity due to excess calories; Z68.34 Body mass index [BMI] 34.0-34.9, adult; K58.9 Irritable bowel syndrome, unspecified; M79.7 Fibromyalgia; M06.9 Rheumatoid arthritis, unspecified; M19.91 Primary osteoarthritis, unspecified site; E03.9 Hypothyroidism, unspecified; F41.9 Anxiety disorder, unspecified; F32.A Depression, unspecified; Z99.81 Dependence on supplemental oxygen; Z95.5 Presence of coronary angioplasty implant and graft; Z87.01 Personal history of pneumonia (recurrent); Z79.82 Long term (current) use of aspirin; Z79.4 Long term (current) use of insulin; Z88.5 Allergy status to narcotic agent; Z88.0 Allergy status to penicillin; Z88.8 Allergy status to other drugs, medicaments and biological substances; Z82.49 Family history of ischemic heart disease and other diseases of the circulatory system; Z83.3 Family history of diabetes mellitus
CPT/HCPCS: 36415; 74177; 80053; 81000; 82150; 82947; 83690; 83735; 85025; 86141; 94640; 94664; 94760; G0378

== ENCOUNTER → 2021-09-07 | Outpatient (CLI) | payer MEDICARE, MEDICAID ==
[~2021-09-07] MED LIST changes: +DULA4.5P INJ; +GLUC1AUT2 INJ; +MELA5TAB14 PO; +OXYC15TA73 PO; +PREG100C55 PO
--- NOTE | 2021-09-07 14:48 | Diagnostic Imaging Report ---
Indication: Chronic neck pain. Time of Exam: 2:20 PM Three views of the cervical spine demonstrate postoperative changes of ACDF with anterior plate and screws transfixing the C5-C7 levels. There is an interposition graft. Hardware is intact without fracture or loosening. Remaining levels are unremarkable. The prevertebral tissues are normal. Odontoid is intact. IMPRESSION: Postop changes of C5-C7 ACDF. No complicating features are detected. Dictated by: Dictated on workstation # [id number]
== END ==
LOC: RAD 13:49
PROVIDERS: ATTEND Pain Medicine Interventional Pain Medicine
DX: M50.120 Mid-cervical disc disorder, unspecified level (principal); M48.02 Spinal stenosis, cervical region; M96.1 Postlaminectomy syndrome, not elsewhere classified; E11.21 Type 2 diabetes mellitus with diabetic nephropathy; E66.8 Other obesity; Z68.32 Body mass index [BMI] 32.0-32.9, adult
CPT/HCPCS: 72040

== ENCOUNTER → 2021-12-27 | Outpatient (CLI) | payer MEDICARE, MEDICAID ==
[~2021-12-27] MED LIST changes: +RT-ALBUTEROL SULF 2.5 MG/3 ML PRE-MIX VIAL INH ONE
== END ==
LOC: RT 13:52
PROVIDERS: ATTEND Internal Medicine Critical Care Medicine
DX: J44.9 Chronic obstructive pulmonary disease, unspecified (principal); J47.9 Bronchiectasis, uncomplicated; J96.11 Chronic respiratory failure with hypoxia; G47.33 Obstructive sleep apnea (adult) (pediatric)
CPT/HCPCS: 94060

== ENCOUNTER 2022-01-01 01:48 | Inpatient (IN) | payer MEDICARE, MEDICAID ==
[~2022-01-01] VITALS: Ht 173 cm; Wt 111.2 kg
[~2022-01-01 01:48] MED LIST changes: -RT-ALBUTEROL SULF 2.5 MG/3 ML PRE-MIX VIAL INH ONE
[2022-01-01] MEDS ORDERED: NS IV 1000 ML 1,000 ML IV SCH (02:15)
[2022-01-01 02:33] LABS: BASOPHILS % (AUTO) 0 % (0-10); EOSINOPHILS # (AUTO) 0.2 10^3/uL (0.0-0.3); EOSINOPHILS % (AUTO) 1 % (0-10); HEMATOCRIT 37 % (35-52); HEMOGLOBIN 12.4 g/dL (11.5-16.0); LYMPHOCYTES # (AUTO) 3.2 10^3/uL (1.0-4.0); LYMPHOCYTES % (AUTO) 29 % (12-44); MEAN CORPUSCULAR HEMOGLOBIN 29 pg (25-34); MEAN CORPUSCULAR HGB CONC 34 g/dL (32-36); MEAN CORPUSCULAR VOLUME 87 fL (80-99); MEAN PLATELET VOLUME 10.2 fL (9.0-12.2); MONOCYTES # (AUTO) 0.9 10^3/uL (0.0-1.0); MONOCYTES % (AUTO) 8 % (0-12); NEUTROPHILS # (AUTO) 6.6 10^3/uL (1.8-7.8); NEUTROPHILS % (AUTO) 60 % (42-75); PLATELET COUNT 205 10^3/uL (130-400); WHITE BLOOD COUNT 10.9 10^3/uL (4.3-11.0)
--- NOTE | 2022-01-01 02:34 | ED GI ---
General Stated Complaint: ABD PAIN,DIZZY,WEAK,PASSING BLOOD Source of Information: Patient History of Present Illness Date Seen by Provider: Jan 01, 2022 Time Seen by Provider: 02:15 Initial Comments PT ARRIVES VIA POV FROM HOME PT FELT FINE ALL DAY, UNTIL AROUND 1400 AFTER SHE ATE PT HAD: HASH BROWNS, EGGS, ANAYA, HAM, COFFEE, AND POP AT 1400 SHE HAD DIARRHEA FROM [id number]--BETWEEN 5 AND 10 STOOLS AROUND 1600 SHE BEGAN PASSING BRIGHT RED BLOOD WITHOUT STOOL--HAS HAD THIS CONTINUOUSLY SINCE 1600 ALSO BEGAN HAVING DIFFUSE LOWER ABDOMINAL CRAMPING AT 1600 WELL STATES SHE STARTED FEELING WEAK AND SHAKEY AND SWEATY AND DIZZY AND NAUSEATED AND GOT TINGLY ALL OVER. NO PRIOR HISTORY OF SIMILAR PT IS ON ASPIRIN AND PLAVIX NO EXCESSIVE BLEEDING OR BRUISING OR PETECHIAE ANYWHERE ELSE PT HAS HISTORY OF COLON POLYPS, AND LAST COLONOSCOPY WAS 05/08/[address] BROWER. HAD 3 POLYPS REMOVED SHE ALSO HAD EGD / ENDOSCOPIC BIOPSY OF PANCREATIC HEAD CYST BY DR. 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 LAST BLOOD GLUCOSE WAS 160 PT TOOK HER WEEKLY DOSE OF TRULICITY EARLIER TODAY. PT HAS COPD AND IS ON O2 AT 3L/NC CONTINUOUSLY. SHE ALSO HAS HISTORY OF HTN. HAS TAKEN ALL OF HER REGULAR MEDICATIONS EARLIER TODAY, HAS NOT TAKEN HER NIGHT TIME MEDICATIONS PCP: DR. INFANTE AT [facility] SURGEON: DR. BROWER GI: DR. GOLDSTEIN COUNTY ADVISER: SEES AT CLINIC IN [place]. Allergies and Home Medications Allergies Coded Allergies: dornase lloyd (Verified Allergy, Unknown, RAPID HEART BEAT, 03/23/17) Penicillins (Verified Adverse Reaction, Mild, NAUSEA, 03/23/17) codeine (Verified Adverse Reaction, Mild, NAUSEA, PT TAKES HYDROCODONE AT HOME, 03/23/17) etomidate (Verified Adverse Reaction, Unknown, seizures, 12/25/19) Patient Home Medication List Aspirin (Aspirin) 81 Mg Tab.chew, 81 MG PO DAILY, (Reported) Entered as Reported by: JAMAR BORGES on 04/30/21 1440 Atorvastatin Calcium (Atorvastatin Calcium) 80 Mg Tablet, 80 MG PO HS, (Reported) Entered as Reported by: YUE SHANE on 12/29/19 1013 Clopidogrel Bisulfate (Clopidogrel) 75 Mg Tablet, 75 MG PO DAILY, (Reported) Entered as Reported by: YUE SHANE on 12/29/19 1013 Dulaglutide (Trulicity) 4.5 Mg/0.5 Ml Pen.injctr, 4.5 MG INJ JILL, (Reported) Entered as Reported by: YUE SHANE on 06/07/21 1044 Fluoxetine HCl (Fluoxetine HCl) 40 Mg Capsule, 40 MG PO DAILY, (Reported) Entered as Reported by: YUE SHANE on 06/07/21 1044 Fluticasone Propionate (Fluticasone Propionate) 16 Gm Lindsay.susp, 2 SPRAYS NS DAILY PRN for CONGESTION, (Reported) Entered as Reported by: CONRAD SÁNCHEZ on 04/14/18 1009 Furosemide (Furosemide) 40 Mg Tablet, 40 MG PO DAILY, (Reported) Entered as Reported by: YUE SHANE on 12/29/19 1013 Glucagon (Gvoke Hypopen 2-Pack) 1 Mg/0.2 Ml Auto.injct, 1 MG INJ UD PRN for HYPOGLYCEMIA, (Reported) Entered as Reported by: YUE SHANE on 06/07/21 1044 Insulin Degludec (Tresiba Flextouch U-100) 100 Unit/1 Ml Insuln.pen, 45 UNIT SQ DAILY PRN for ONLY USE IF PUMP FAILS, (Reported) Entered as Reported by: YUE SHANE on 06/07/21 1044 Insulin Lispro (Humalog) 100 Unit/1 Ml Cartridge, 200 UNIT EVERY 72 HOURS, (Reported) Entered as Reported by: JAMAR BORGES on 04/30/21 1440 Levothyroxine Sodium (Levothyroxine Sodium) 75 Mcg Tablet, 75 MCG PO DAILY, (Reported) Entered as Reported by: YUE SHANE on 12/29/19 1013 Lisinopril (Lisinopril) 40 Mg Tablet, 40 MG PO DAILY, (Reported) Entered as Reported by: JAMAR BORGES on 04/30/21 1440 Melatonin (Melatonin) 5 Mg Tablet, 5 MG PO HS, (Reported) Entered as Reported by: YUE SHANE on 06/07/21 1044 Montelukast Sodium (Montelukast Sodium) 10 Mg Tablet, 10 MG PO HS, (Reported) Entered as Reported by: MICHELLE JORDAN on 07/11/17 1153 Multivit-Min/FA/Lycopene/Lut (Centrum Silver Tablet) 1 Each Tablet, 1 TAB PO DAILY, (Reported) Entered as Reported by: CONRAD SÁNCHEZ on 04/14/18 1009 Roscoe-3 Acid Ethyl Esters (Roscoe-3 Acid Ethyl Esters) 1 Gm Capsule, 2 GM PO BID, (Reported) Entered as Reported by: YUE SHANE on 12/29/19 1013 Oxycodone HCl (Oxycontin) 15 Mg Tab.er.12h, 15 MG PO Q8HR Prescribed by: FRANTZ GROVE on 06/11/21 1153 Pantoprazole Sodium (Pantoprazole Sodium) 40 Mg Tablet.dr, 40 MG PO BID, (Reported) Entered as Reported by: YUE SHANE on 06/07/21 1044 Potassium Chloride (K-Tab ER) 10 Meq Tablet.er, 10 MEQ PO BID, (Reported) Entered as Reported by: YUE SHANE on 12/29/19 1013 Pregabalin (Pregabalin) 100 Mg Capsule, 100 MG PO BID, (Reported) Entered as Reported by: YUE SHANE on 06/07/21 1044 Umeclidinium [place] (Incruse Ellipta) 62.5 Mcg Blst.w.dev, 1 PUFF IH DAILY, (Reported) Entered as Reported by: JAMAR BORGES on 04/30/21 1440 Review of Systems Review of Systems Constitutional: see HPI, diaphoresis, dizziness, malaise, weakness EENTM: No Symptoms Reported Respiratory: See HPI Cardiovascular: No Symptoms Reported Gastrointestinal: See HPI, Abdominal Pain, Diarrhea, Nausea, Rectal Bleeding; Denies Vomiting Genitourinary: No Symptoms Reported Musculoskeletal: no symptoms reported Skin: no symptoms reported Psychiatric/Neurological: See HPI, Anxiety Endocrine: See HPI Hematologic/Lymphatic: See HPI Past Iapxdaq-Uhjhpr-Fjkopq Hx Immunizations Up To Date Tetanus Booster (TDap): Unknown PED Vaccines UTD: Yes First/Initial COVID19 Vaccinat: MARCH 2020 Second COVID19 Vaccination Carlos: APRIL 2020 Third COVID19 Vaccination Date: DECEMBER 2020 Seasonal Allergies Seasonal Allergies: Yes Past Medical History Surgeries: Yes (Pancreatic biopsies;EGD'S/COLONOSCOPIES/POLYPECTOMIES) Abdominal, Appendectomy, Cardiac, Coronary Stent, Gallbladder, 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, Orthopedic Respiratory: Yes (02 AT 3L/NC CONTINOUSLY) Asthma, COPD Currently Using CPAP: Yes Currently Using BIPAP: No Cardiac: Yes Coronary Artery Disease, High Cholesterol, Hypertension Neurological: No 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, 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 Sexually Transmitted Disease: No Genitourinary: Yes Kidney Stones Gastrointestinal: Yes (Cystic neoplasm of the pancreatic head;) Gastroesophageal Reflux, Pancreatitis, Polyps Musculoskeletal: Yes (NECK PAIN, CERVICAL STENOSIS, CARPAL TUNNEL SYNDROME) Arthritis, Fibromyalgia, Rheumatoid Arthritis, Chronic Back Pain Endocrine: Yes (OBEITY) Hypothyroidsim, Diabetes, Non-Insulin dep HEENT: Yes (VOCAL CORD SPASM/LARYNGOSPASM;GLASSES;DENTURES) Loss of Vision: Denies Hearing Impairment: Denies Cancer: No Psychosocial: Yes Anxiety, Depression Integumentary: No Blood Disorders: No Adverse Reaction/Blood Tranf: No Family Medical History Cancer 03 MOTHER (lung cancer 1987) Cardiovascular disease G8 BROTHER G8 SISTER Diabetes mellitus G8 SISTER Family history: Asthma 03 MOTHER Family history: Cardiovascular disease 03 FATHER Family history: Hypertension 03 MOTHER Family history: Osteoporosis 03 MOTHER History of - respiratory disease Hypertension G8 BROTHER G8 SISTER Respiratory disorder G8 BROTHER (LUNG CA) Stroke 03 MOTHER ( stroke paraylsis lower extremies w/c ) Past Medical History 1. Dysphagia with risk for aspiration per Speech post op cervical fusion.02/03. Resolved per swallow study. 2. DJD 3. COPD- on home O2 4. DM 5. HLP 6. RLE weakness with AFO secondary to "peripheral neuropathy" 7. STACY- recently started on CPAP 8. Morbid Obesity 9. History of LLL pneumonia sp surgery 02/03 with work up by Dr. Reid in the past 10. Fibromyalgia 11. IBS 12. Coronary artery disease with stenting 13. 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 ACDF C5-7 02/03 2. 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 3. Appendectomy 4. Rotator cuff repair 93 5. Tonsillectomy 6. Tracheostomy 05/09 Physical Exam Vital Signs Vital Signs - First Documented 01/01/22 01/01/22 03:00 03:04 Temp 37.0 Pulse 74 Resp 20 B/P (MAP) 187/99 (128) Pulse Ox 100 O2 Delivery Nasal Cannula O2 Flow Rate 3.00 Capillary Refill : Height/Weight/BMI Height: 5'7.50" Weight: 236lbs. 0.0oz. 107.678082po; 31.48 BMI Method:Stated General Appearance: WD/WN, no apparent distress, obese, other (VERY ANXIOUS, HYPERVENTILATING. ) HEENT: PERRL/EOMI; No scleral icterus (R), No scleral icterus (L), No pale conjunctivae (R), No pale conjunctivae (L) Neck: normal inspection Respiratory: normal breath sounds, no respiratory distress, no accessory muscle use Cardiovascular: regular rate, rhythm, no murmur Gastrointestinal: soft, tenderness (MILD DIFFUSE LOWER ABDOMINAL TENDERNESS. 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, no motor/sensory deficits, alert, oriented x 3 Skin: normal color, warm/dry; No ecchymosis, No rash Procedures/Interventions Date of ETT Placement: Dec 25, 2019 Time of ETT Placement: 2024 Progress/Results/Core Measures Results/Orders Lab Results Laboratory Tests Test 01/01/22 02:20 01/01/22 02:50 Range/Units White Blood Count 10.9 4.3-11.0 10^3/uL Red Blood Count 4.23 3.80-5.11 10^6/uL Hemoglobin 12.4 11.5-16.0 g/dL Hematocrit 37 35-52 % Mean Corpuscular Volume 87 80-99 fL Mean Corpuscular Hemoglobin 29 25-34 pg Mean Corpuscular Hemoglobin Concent 34 32-36 g/dL Red Cell Distribution Width 13.3 10.0-14.5 % Platelet Count 205 130-400 10^3/uL Mean Platelet Volume 10.2 9.0-12.2 fL Immature Granulocyte % (Auto) 1 % Neutrophils (%) (Auto) 60 42-75 % Lymphocytes (%) (Auto) 29 12-44 % Monocytes (%) (Auto) 8 0-12 % Eosinophils (%) (Auto) 1 0-10 % Basophils (%) (Auto) 0 0-10 % Neutrophils # (Auto) 6.6 1.8-7.8 10^3/uL Lymphocytes # (Auto) 3.2 1.0-4.0 10^3/uL Monocytes # (Auto) 0.9 0.0-1.0 10^3/uL Eosinophils # (Auto) 0.2 0.0-0.3 10^3/uL Basophils # (Auto) 0.0 0.0-0.1 10^3/uL Immature Granulocyte # (Auto) 0.1 0.0-0.1 10^3/uL Prothrombin Time 11.9 L 12.2-14.7 SEC INR Comment 0.8 0.8-1.4 Activated Partial Thromboplast Time 25 24-35 SEC Sodium Level 138 135-145 MMOL/L Potassium Level 3.8 3.6-5.0 MMOL/L Chloride Level 106 98-107 MMOL/L Carbon Dioxide Level 20 L 21-32 MMOL/L Anion Gap 12 5-14 MMOL/L Blood Urea Nitrogen 23 H 7-18 MG/DL Creatinine 1.18 0.60-1.30 MG/DL Estimat Glomerular Filtration Rate 50 BUN/Creatinine Ratio 19 Glucose Level 166 H 70-105 MG/DL Calcium Level 9.4 8.5-10.1 MG/DL Corrected Calcium 9.2 8.5-10.1 MG/DL Magnesium Level 1.8 1.6-2.4 MG/DL Total Bilirubin 0.6 0.1-1.0 MG/DL Aspartate Amino Transf (AST/SGOT) 25 5-34 U/L Alanine Aminotransferase (ALT/SGPT) 31 0-55 U/L Alkaline Phosphatase 52 40-136 U/L Total Protein 6.4 6.4-8.2 GM/DL Albumin 4.3 3.2-4.5 GM/DL Amylase Level 47 25-125 U/L Lipase 54 8-78 U/L Serum Alcohol < 10 <10 MG/DL Urine Color YELLOW Urine Clarity CLEAR Urine pH 5.5 5-9 Urine Specific [place] 1.010 L 1.016-1.022 Urine Protein NEGATIVE NEGATIVE Urine Glucose (UA) NEGATIVE NEGATIVE Urine Ketones NEGATIVE NEGATIVE Urine Nitrite NEGATIVE NEGATIVE Urine Bilirubin NEGATIVE NEGATIVE Urine Urobilinogen 0.2 < = 1.0 MG/DL Urine Leukocyte Esterase TRACE H NEGATIVE Urine RBC (Auto) NEGATIVE NEGATIVE Urine RBC NONE /HPF Urine WBC 2-5 /HPF Urine Squamous Epithelial Cells 0-2 /HPF Urine Crystals NONE /LPF Urine Bacteria FEW H /HPF Urine Casts NONE /LPF Urine Mucus NEGATIVE /LPF Urine Culture Indicated YES Urine Opiates Screen NEGATIVE NEGATIVE Urine Oxycodone Screen NEGATIVE NEGATIVE Urine Methadone Screen NEGATIVE NEGATIVE Urine Propoxyphene Screen NEGATIVE NEGATIVE Urine Barbiturates Screen NEGATIVE NEGATIVE Ur Tricyclic Antidepressants Screen POSITIVE H NEGATIVE Urine Phencyclidine Screen NEGATIVE NEGATIVE Urine Amphetamines Screen NEGATIVE NEGATIVE Urine Methamphetamines Screen NEGATIVE NEGATIVE Urine Benzodiazepines Screen NEGATIVE NEGATIVE Urine Cocaine Screen NEGATIVE NEGATIVE Urine Cannabinoids Screen NEGATIVE NEGATIVE My Orders Orders - DUSTIN ALTAMIRANO DO Ed Iv/Invasive Line Start (01/01/22 02:15) O2 (01/01/22 02:15) Monitor-Rhythm Ecg Trace Only (01/01/22 02:15) Cbc With Automated Diff (01/01/22 02:15) Comprehensive Metabolic Panel (01/01/22 02:15) Magnesium (01/01/22 02:15) Protime With Inr (01/01/22 02:15) Partial Thromboplastin Time (01/01/22 02:15) Ua Culture If Indicated (01/01/22 02:15) Ed Iv/Invasive Line Start (01/01/22 02:15) Ns Iv 1000 Ml (Sodium Chloride 0.9%) (01/01/22 02:15) Alcohol (01/01/22 02:19) Amylase (01/01/22 02:19) Drug Screen Stat (Urine) (01/01/22 02:19) Lipase (01/01/22 02:19) Ct Abdomen/Pelvis W (01/01/22 02:58) Urine Culture (01/01/22 02:50) Iohexol Injection (Omnipaque 350 Mg/Ml 1 (01/01/22 03:45) Sodium Chloride Flush (Catheter Flush Sy (01/01/22 03:45) Ns (Ivpb) (Sodium Chloride 0.9% Ivpb Bag (01/01/22 03:45) Medications Given in ED Current Medications Medications Dose Ordered Sig/Dominique Route Start Time Stop Time Status Last Admin Dose Admin Iohexol 100 ml ONCE ONCE IV 01/01/22 03:45 01/01/22 03:46 DC 01/01/22 03:33 80 ML Sodium Chloride 10 ml NEEDED PRN IV 01/01/22 03:45 01/01/22 03:33 10 ML Sodium Chloride 100 ml ONCE ONCE IV 01/01/22 03:45 01/01/22 03:46 DC 01/01/22 03:33 80 ML Vital Signs/I&O 01/01/22 01/01/22 03:00 03:04 Temp 37.0 Pulse 74 Resp 20 B/P (MAP) 187/99 (128) Pulse Ox 100 O2 Delivery Nasal Cannula Nasal Cannula O2 Flow Rate 3.00 Progress Progress Note : Progress Note UP TO BATHROOM X 2 AND PASSED ONLY BRIGHT RED BLOOD, NO STOOL. NO DETERIORATION IN PT'S CONDITION DURING ER STAY Diagnostic Imaging Comments CT ABDOMEN/PELVIS-- Reviewed: Reviewed by Me Departure Impression Primary Impression: GI bleed Additional Impression: PLAVIX AND ASPIRIN THERAPY Departure-Patient Inst. Referrals: [facility] (PCP/Family) Primary Care Physician DUSTIN ALTAMIRANO DO Jan 01, 2022 02:34
[2022-01-01 02:43] LABS: ALBUMIN 4.3 GM/DL (3.2-4.5); CHLORIDE 106 MMOL/L (98-107); POTASSIUM 3.8 MMOL/L (3.6-5.0); SODIUM 138 MMOL/L (135-145)
[2022-01-01 02:44] LABS: AMYLASE 47 U/L (25-125); CALCIUM 9.4 MG/DL (8.5-10.1); INR 0.8 (0.8-1.4); PROTHROMBIN TIME PATIENT 11.9 SEC (12.2-14.7)
[2022-01-01 02:46] LABS: GLUCOSE 166 MG/DL (70-105); TOTAL PROTEIN 6.4 GM/DL (6.4-8.2)
[2022-01-01 02:47] LABS: BILIRUBIN,TOTAL 0.6 MG/DL (0.1-1.0); CARBON DIOXIDE 20 MMOL/L (21-32)
[2022-01-01 02:49] LABS: ALKALINE PHOSPHATASE 52 U/L (40-136); CREATININE SERUM 1.18 MG/DL (0.60-1.30); GFR ESTIMATED 50
[2022-01-01 02:50] LABS: BUN/CREATININE RATIO 19
[2022-01-01 02:52] LABS: ALANINE AMINOTRANSFERASE 31 U/L (0-55); MAGNESIUM 1.8 MG/DL (1.6-2.4)
[2022-01-01 02:53] LABS: LIPASE 54 U/L (8-78)
[2022-01-01 02:57] LABS: BILIRUBIN,URINE NEGATIVE (NEGATIVE); CLARITY,URINE CLEAR; COLOR,URINE YELLOW; GLUCOSE, URINE (UA) NEGATIVE (NEGATIVE); KETONES,URINE NEGATIVE (NEGATIVE); LEUKOCYTE ESTERASE ,URINE TRACE (NEGATIVE); NITRITE,URINE NEGATIVE (NEGATIVE); PH,URINE 5.5 (5-9); PROTEIN,URINE NEGATIVE (NEGATIVE)
[2022-01-01 03:11] LABS: AMPHETAMINE SCREEN, URINE NEGATIVE (NEGATIVE); BACTERIA,URINE FEW /HPF; BARBITURATE SCREEN URINE NEGATIVE (NEGATIVE); BENZODIAZEPINES SCREEN URINE NEGATIVE (NEGATIVE); CANNABINOID SCREEN, URINE NEGATIVE (NEGATIVE); COCAINE SCREEN URINE NEGATIVE (NEGATIVE); METHADONE STAT NEGATIVE (NEGATIVE); OPIATE SCREEN URINE NEGATIVE (NEGATIVE); OXYCODONE STAT NEGATIVE (NEGATIVE); PROPOXYPHENE STAT NEGATIVE (NEGATIVE); TRICYCLIC ANTIDEPRESSANTS SCRE POSITIVE (NEGATIVE)
[2022-01-01 03:12] LABS: SQUAMOUS EPITHELIAL CELL,UR 0-2 /HPF
[2022-01-01] MEDS ORDERED: NS 100 ML (IVPB) BAG IV ONE (03:45)
[2022-01-01] MEDS ORDERED: IOHEXOL 350 MG/ML 100 ML (OMNIPAQUE 350) VIAL IV ONE (03:45)
[2022-01-01] MEDS ORDERED: CATHETER FLUSH 10 ML SYR IV PRN (03:45)
[2022-01-01] MEDS ORDERED: NS IV 1000 ML 1,000 ML ONE (05:53)
[2022-01-01 05:59] VITALS: BP 146/78
[2022-01-01] MEDS: NS IV 1000 ML 1,000 ML IV SCH ×3 (06:41→21:07)
--- NOTE | 2022-01-01 07:31 | Diagnostic Imaging Report ---
PROCEDURE: CT abdomen and pelvis with contrast. TECHNIQUE: Multiple contiguous axial images were obtained through the abdomen and pelvis after administration of intravenous contrast. Auto Exposure Controls were utilized during the CT exam to meet ALARA standards for radiation dose reduction. All CT scans use one or more of the following dose optimizing techniques: automated exposure control, MA and/or KvP adjustment based on patient size and exam type or iterative reconstruction. DATE: January 01, 2022. COMPARISON: CT abdomen and pelvis June 06, 2021. INDICATION: 71-year-old female, abdominal pain and bloody stools. FINDINGS: There is a 3 mm calcified right lower lobe granuloma. There are linear opacities in the lung bases most consistent with atelectasis. The heart is not enlarged. There is no pericardial effusion. The liver is unremarkable in size and contour. There is a low-attenuation lesion in the right lobe of liver on axial image 60 which measures 1.5 cm in size. Internal attenuation is consistent with a benign cyst. There is questionable mild diffuse fatty infiltration of the liver which is not optimally evaluated on postcontrast imaging. The main, right, left portal veins are patent. The gallbladder surgically absent. There is no identified biliary ductal dilation. The main pancreatic duct is not grossly dilated. There is a cystic focus in the pancreas and at the level of the pancreatic head unchanged since comparison CT measuring up to approximately 6 mm in size. There are splenic calcifications compatible with sequela of prior granulomatous disease. The spleen is not enlarged. The adrenal glands are unremarkable. There is a low-attenuation right renal lesion measuring 3.5 cm in size on axial image 81 which is most compatible with a benign cyst. The urinary collecting systems are not distended. There is no identified renal or ureteral stone. Urinary bladder is unremarkable. Uterus is not seen and may be surgically absent. There is wall thickening of the left colon with mild adjacent inflammatory stranding. This is most notable at the proximal aspect of the left colon. Similar findings also present at the level of the distal transverse colon. There is no evidence to suggest acute appendicitis. The intestinal tract is not distended. There is no free intraperitoneal air. There is no drainable fluid collection. There is no free fluid in the abdomen or pelvis. There are atherosclerotic calcifications. There is no identified abnormally enlarged lymph node in the abdomen or pelvis which meets CT size criteria for adenopathy. There are multilevel degenerative changes of the spine. IMPRESSION: CT ABDOMEN AND PELVIS. 1. Wall thickening of the left colon and distal transverse colon most compatible with a nonspecific colitis. Infectious and inflammatory etiologies would be favored. 2. Incidental findings as above. Agree with the provided preliminary report. Dictated by: Dictated on workstation # [id number]
--- NOTE | 2022-01-01 07:58 | Consultation - Surgery ---
TARA GASTELUM 01/01/22 0758: History of Present Illness History of Present Illness Patient Consulted On(didier/time) 01/01/22 07:53 Date Seen by Provider: Jan 01, 2022 Time Seen by Provider: 07:30 History of Present Illness 71 F admitted for abdominal pain and bright red blood per rectum. Pt ate hashbrown,eggs,stoddard,ham and coffee approx 1400 yesterday 12/31/21 and started to have diffuse watery stools at 1500. Pt claims about 7 loose stools that turned to only passing blood from 1600 yesterday-present. No associated symptoms in close contacts. Pt claims diffuse constant achey lower abdominal pain rated 5/10. nausea present but no emesis. Pt feels diaphoretic, weak, and dizzy since diarrhea started. Pt claims never had previous hx of similar symptoms. Notes no changes in diet recently, but proclaims recent gain in weight of unknown amount. Allergies and Home Medications Allergies Coded Allergies: dornase lloyd (Verified Allergy, Unknown, RAPID HEART BEAT, 03/23/17) Penicillins (Verified Adverse Reaction, Mild, NAUSEA, 03/23/17) codeine (Verified Adverse Reaction, Mild, NAUSEA, PT TAKES HYDROCODONE AT HOME, 03/23/17) etomidate (Verified Adverse Reaction, Unknown, seizures, 12/25/19) Patient Home Medication List Home Medication List Reviewed: Yes Amitriptyline HCl (Amitriptyline HCl) 25 Mg Tablet, 25 MG PO HS, (Reported) Entered as Reported by: YUE SHANE on 01/01/22 1530 Last Action: Reviewed Aspirin (Aspirin) 81 Mg Tab.chew, 81 MG PO DAILY, (Reported) Entered as Reported by: JAMAR BORGES on 04/30/21 1440 Last Action: Reviewed Atorvastatin Calcium (Atorvastatin Calcium) 80 Mg Tablet, 80 MG PO HS, (Reported) Entered as Reported by: YUE SHANE on 12/29/19 1013 Last Action: Reviewed Azithromycin (Azithromycin) 250 Mg Tablet, 250 MG PO DAILY, (Reported) Entered as Reported by: CRYSTAL SANTIAGO on 01/01/22 1045 Last Action: Reviewed Budesonide/Formoterol Fumarate (Symbicort 160-4.5 Mcg Inhaler) 160 Mcg-4.5 Mcg/Actuation Hfa.aer.ad, 2 PUFF IH BID, (Reported) Entered as Reported by: CRYSTAL SANTIAGO on 01/01/22 1045 Last Action: Reviewed Clopidogrel Bisulfate (Clopidogrel) 75 Mg Tablet, 75 MG PO DAILY, (Reported) Entered as Reported by: YUE SHANE on 12/29/19 1013 Last Action: Reviewed Cyclosporine (Restasis) 0.05 % Droperette, 1 DROP OU BID, (Reported) Entered as Reported by: YUE SHANE on 01/01/221529 Last Action: Reviewed Dapagliflozin/Metformin HCl (Xigduo Xr 10 mg-1,000 mg Tab) 10 Mg-1,000 Mg Tab.bp.24h, 1 EA PO DAILY, (Reported) Entered as Reported by: YUE SHANE on 01/01/221529 Last Action: Reviewed Dulaglutide (Trulicity) 4.5 Mg/0.5 Ml Pen.injctr, 4.5 MG INJ WED, (Reported) Entered as Reported by: YUE SHANE on 06/07/21 104 Last Action: Reviewed Duloxetine HCl (Duloxetine HCl) 30 Mg Capsule.dr, 30 MG PO DAILY, (Reported) Entered as Reported by: CRYSTAL SANTIAGO on 01/01/22 104 Last Action: Reviewed Duloxetine HCl (Duloxetine HCl) 60 Mg Capsule.dr, 60 MG PO HS, (Reported) Entered as Reported by: YUE SHANE on 01/01/221529 Last Action: Reviewed Ezetimibe (Ezetimibe) 10 Mg Tablet, 10 MG PO DAILY, (Reported) Entered as Reported by: YUE SHANE on 01/01/221529 Last Action: Reviewed Fenofibrate Nanocrystallized (Fenofibrate) 145 Mg Tablet, 145 MG PO DAILY, (Reported) Entered as Reported by: YUE SHANE on 01/01/221529 Last Action: Reviewed Fluticasone Propionate (Fluticasone Propionate) 16 Gm Issue.susp, 2 SPRAYS NS DAILY PRN for CONGESTION, (Reported) Entered as Reported by: CONRAD SÁNCHEZ on 04/14/18 1009 Last Action: Reviewed Furosemide (Furosemide) 40 Mg Tablet, 40 MG PO DAILY, (Reported) Entered as Reported by: YUE SHANE on 12/29/19 1013 Last Action: Reviewed Insulin Degludec (Tresiba Flextouch U-100) 100 Unit/1 Ml Insuln.pen, 45 UNIT SQ DAILY PRN for ONLY USE IF PUMP FAILS, (Reported) Entered as Reported by: YUE SHANE on 06/07/21 1044 Last Action: Reviewed Insulin Lispro (Humalog) 100 Unit/1 Ml Cartridge, 200 UNIT EVERY 72 HOURS, (Reported) Entered as Reported by: JAMAR BORGES on 04/30/21 1440 Last Action: Reviewed Levothyroxine Sodium (Levothyroxine Sodium) 75 Mcg Tablet, 75 MCG PO DAILY, (Reported) Entered as Reported by: YUE SHANE on 12/29/19 1013 Last Action: Reviewed Lisinopril (Lisinopril) 40 Mg Tablet, 40 MG PO DAILY, (Reported) Entered as Reported by: JAMAR BORGES on 04/30/21 1440 Last Action: Reviewed Melatonin (Melatonin) 5 Mg Tablet, 5 MG PO HS, (Reported) Entered as Reported by: YUE SHANE on 06/07/21 104 Last Action: Reviewed Montelukast Sodium (Montelukast Sodium) 10 Mg Tablet, 10 MG PO HS, (Reported) Entered as Reported by: MICHELLE JORDAN on 07/11/17 1153 Last Action: Reviewed Multivit-Min/FA/Lycopene/Lut (Centrum Silver Tablet) 1 Each Tablet, 1 TAB PO DAILY, (Reported) Entered as Reported by: CONRAD SÁNCHEZ on 04/14/18 1009 Last Action: Reviewed [place]-3 Acid Ethyl Esters ([place]-3 Acid Ethyl Esters) 1 Gm Capsule, 2 GM PO BID, (Reported) Entered as Reported by: YUE SHANE on 12/29/19 1013 Last Action: Reviewed [place]-3/Dha/Epa/Fish Oil (Fish Oil 1,000 mg Softgel) 1,000 Mg (120 Mg-180 Mg) Capsule, 1,000 MG PO BID, (Reported) Entered as Reported by: YUE SHANE on 01/01/22 1530 Last Action: Reviewed Pantoprazole Sodium (Pantoprazole Sodium) 40 Mg Tablet.dr, 40 MG PO BID, (Reported) Entered as Reported by: YUE SHANE on 06/07/21 104 Last Action: Reviewed Potassium Chloride (K-Tab ER) 10 Meq Tablet.er, 10 MEQ PO BID, (Reported) Entered as Reported by: YUE SHANE on 12/29/19 1013 Last Action: Reviewed Pregabalin (Pregabalin) 100 Mg Capsule, 100 MG PO BID, (Reported) Entered as Reported by: YUE SHANE on 06/07/21 1044 Last Action: Reviewed Tiotropium [place] (Spiriva Respimat 2.5MCG/ACTUATION) 2.5 Mcg/Actuation Mist.inhal, 2 PUFF IH DAILY, (Reported) Entered as Reported by: YUE SHANE on 01/01/22 1530 Last Action: Reviewed Discontinued Medications Fluoxetine HCl (Fluoxetine HCl) 40 Mg Capsule, 40 MG PO DAILY, (Reported) Entered as Reported by: YUE SHANE on 06/07/21 104 Last Action: Discontinued Glucagon (Gvoke Hypopen 2-Pack) 1 Mg/0.2 Ml Auto.injct, 1 MG INJ UD PRN for HYPOGLYCEMIA, (Reported) Discontinued Reason: No Longer Taking Entered as Reported by: YUE SHANE on 06/07/21 1044 Last Action: Discontinued Oxycodone HCl (Oxycontin) 15 Mg Tab.er.12h, 15 MG PO Q8HR Prescribed by: FRANTZ GROVE on 06/11/21 1153 Last Action: Discontinued Umeclidinium [place] (Incruse Ellipta) 62.5 Mcg Blst.w.dev, 1 PUFF IH DAILY, (Reported) Discontinued Reason: No Longer Taking Entered as Reported by: JAMAR BORGES on 04/30/21 1440 Last Action: Discontinued Past Wqmaezp-Sgjhqs-Ypqlun Hx Patient Social History Smoking Status: Former Smoker Former Smoker, Quit: Jun 20, 2002 Type Used: Cigarettes 2nd Hand Smoke Exposure: No Recent Hopitalizations: No Alcohol Use?: No Have you traveled recently?: No Immunizations Up To Date Tetanus Booster (TDap): Unknown PED Vaccines UTD: Yes Date of Pneumonia Vaccine: Feb 21, 2017 Date of Influenza Vaccine: Dec 15, 2020 Seasonal Allergies Seasonal Allergies: Yes Surgeries History of Surgeries: Yes (Pancreatic biopsies;EGD'S/COLON OSCOPIES/POLYPECTOMIES) Surgeries: Abdominal, Appendectomy, Cardiac, Coronary Stent, Gallbladder, 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 Respiratory History of Respiratory Disorde: Yes (02 AT 3L/NC CONTINOUSLY) Respiratory Disorders: Asthma, COPD Cardiovascular History of Cardiac Disorders: Yes Cardiac Disorders: Coronary Artery Disease, High Cholesterol, Hypertension Neurological History of Neurological Disord: No 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 System : No Hx 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 Disorders: No Sexually Transmitted Disease: No [employer] History: 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, Menopausal Genitourinary History of Genitourinary Disor: Yes Genitourinary Disorders: Kidney Stones Gastrointestinal History of Gastrointestinal Di: Yes (Cystic neoplasm of the pancreatic head;) Gastrointestinal Disorders: Gastroesophageal Reflux, Polyps Musculoskeletal History of Musculoskeletal Dis: Yes (NECK PAIN, CERVICAL STENOSIS, CARPAL TUNNE L SYNDROME) Musculoskeletal Disorders: Arthritis, Fibromyalgia, Rheumatoid Arthritis, Chronic Back Pain Endocrine History of Endocrine Disorders: Yes (OBEITY) Endocrine Disorders: Hypothyroidsim, Diabetes, Non-Insulin dep HEENT Loss of Vision: Denies Hearing Impairment: Denies Cancer History of Cancer: No Psychosocial History of Psychiatric Problem: Yes Behavioral Health Disorders: Anxiety, Depression Blood Transfusions Adverse Reaction to a Blood Tr: No Family Medical History Significant Family History: Cancer, GI Disease (colon cancer), Other Conditions/Hx (3 brothers and 1 Sister of colon cancer) Family Medial History: Cancer 03 MOTHER (lung cancer 1987) Cardiovascular disease G8 BROTHER G8 SISTER Diabetes mellitus G8 SISTER Family history: Asthma 03 MOTHER Family history: Cardiovascular disease 03 FATHER Family history: Hypertension 03 MOTHER Family history: Osteoporosis 03 MOTHER History of - respiratory disease Hypertension G8 BROTHER G8 SISTER Respiratory disorder G8 BROTHER (LUNG CA) Stroke 03 MOTHER (1969,s stroke paraylsis lower extremies w/c ) Review of Systems-General Constitutional: chills, diaphoresis, dizziness, weakness EENTM: blurred vision, vision loss Respiratory: short of breath, wheezing Cardiovascular: No chest pain, No palpitations Gastrointestinal: RLQ, LLQ, abdominal pain (RLQ LLQ), diarrhea Genitourinary: No dysuria, No frequency : No Musculoskeletal: No muscle pain, No muscle stiffness; muscle weakness Skin: No pruritus, No rash Psychiatric/Neurological: Anxiety, Weakness Other pt notes recent weight gain pt notes no changes in diet or appetite Physical Exam-General Problems Physical Exam Vital Signs Vital Signs - First Documented 01/01/22 01/01/22 03:00 03:04 Temp 37.0 Pulse 74 Resp 20 B/P (MAP) 187/99 (128) Pulse Ox 100 O2 Delivery Nasal Cannula O2 Flow Rate 3.00 Capillary Refill : Less Than 3 Seconds General Appearance: mild distress Eyes: Bilateral Eye EOMI HEENT: PERRL/EOMI; No photophobia Neck: non-tender, normal inspection Respiratory: chest non-tender, no respiratory distress, no accessory muscle use, wheezing (on expiration) Cardiovascular: regular rate, rhythm, no murmur Peripheral Pulses: 3+ Dorsalis Pedis (R), 3+ Left Dors-Pedis (L), 3+ Radial Pulses (R), 3+ Radial Pulses (L) Gastrointestinal: soft, no organomegaly, no pulsatile mass, tenderness (RLQ LLQ) Rectal: other (BRBPR (per pt)) Back: normal inspection, other (diffuse low back pain) Extremities: non-tender, normal inspection, no calf tenderness, normal capillary refill; No inflammation Neurologic/Psychiatric: alert, normal mood/affect, oriented x 3 Skin: normal color, diaphoresis Lymphatic: no adenopathy Data Review Labs Laboratory Tests 01/01/22 02:20: White Blood Count 10.9, Red Blood Count 4.23, Hemoglobin 12.4, Hematocrit 37, Mean Corpuscular Volume 87, Mean Corpuscular Hemoglobin 29, Mean Corpuscular Hemoglobin Concent 34, Red Cell Distribution Width 13.3, Platelet Count 205, Mean Platelet Volume 10.2, Immature Granulocyte % (Auto) 1, Neutrophils (%) (Auto) 60, Lymphocytes (%) (Auto) 29, Monocytes (%) (Auto) 8, Eosinophils (%) (Auto) 1, Basophils (%) (Auto) 0, Neutrophils # (Auto) 6.6, Lymphocytes # (Auto) 3.2, Monocytes # (Auto) 0.9, Eosinophils # (Auto) 0.2, Basophils # (Auto) 0.0, Immature Granulocyte # (Auto) 0.1, Prothrombin Time 11.9L, INR Comment 0.8, Activated Partial Thromboplast Time 25, Sodium Level 138, Potassium Level 3.8, Chloride Level 106, Carbon Dioxide Level 20L, Anion Gap 12, Blood Urea Nitrogen 23H, Creatinine 1.18, Estimat Glomerular Filtration Rate 50, BUN/Creatinine Ratio 19, Glucose Level 166H, Calcium Level 9.4, Corrected Calcium 9.2, Magnesium Level 1.8, Total Bilirubin 0.6, Aspartate Amino Transf (AST/SGOT) 25, Alanine Aminotransferase (ALT/SGPT) 31, Alkaline Phosphatase 52, Total Protein 6.4, Albumin 4.3, Amylase Level 47, Lipase 54, Serum Alcohol < 10 01/01/22 02:50: Urine Color YELLOW, Urine Clarity CLEAR, Urine pH 5.5, Urine Specific [place] 1.010L, Urine Protein NEGATIVE, Urine Glucose (UA) NEGATIVE, Urine Ketones NEGATIVE, Urine Nitrite NEGATIVE, Urine Bilirubin NEGATIVE, Urine Urobilinogen 0.2, Urine Leukocyte Esterase TRACEH, Urine RBC (Auto) NEGATIVE, Urine RBC NONE, Urine WBC 2-5, Urine Squamous Epithelial Cells 0-2, Urine Crystals NONE, Urine Bacteria FEWH, Urine Casts NONE, Urine Mucus NEGATIVE, Urine Culture Indicated YES, Urine Opiates Screen NEGATIVE, Urine Oxycodone Screen NEGATIVE, Urine Methadone Screen NEGATIVE, Urine Propoxyphene Screen NEGATIVE, Urine Barbiturates Screen NEGATIVE, Ur Tricyclic Antidepressants Screen POSITIVEH, Urine Phencyclidine Screen NEGATIVE, Urine Amphetamines Screen NEGATIVE, Urine Methamphetamines Screen NEGATIVE, Urine Benzodiazepines Screen NEGATIVE, Urine Cocaine Screen NEGATIVE, Urine Cannabinoids Screen NEGATIVE 01/01/22 06:09: Glucometer 136H Microbiology 01/01/22 C. difficile GDH Antigen & Toxins - Final, Resulted 01/01/22 Stool Culture, Resulted Pending Assessment/Plan Assessment/Plan Admission Diagonsis Abdominal pain w/ associated GI bleed Assessment/Plan Abdominal pain GI bleed nausea stool studies NPO Hold anti-coag regimen colonoscopy start DELIA Nolen DO 01/02/22 0427: History of Present Illness History of Present Illness History of Present Illness Consult requested by Dr. Santiago for colitis/blood in stool. Patient is a 71 year old female who began having diarrhea, blood in stool yesterday. Multiple stool s. Began having llq pain that was achy/crampy that she rated at 5/10. Having nausea, no emesis. Weak and dizzy feeling as well. Had ct scan showing findings of colitis of left colon. Had previous colonoscopy in April. Allergies and Home Medications Allergies Coded Allergies: dornase lloyd (Verified Allergy, Unknown, RAPID HEART BEAT, 03/23/17) Penicillins (Verified Adverse Reaction, Mild, NAUSEA, 03/23/17) codeine (Verified Adverse Reaction, Mild, NAUSEA, PT TAKES HYDROCODONE AT HOME, 03/23/17) etomidate (Verified Adverse Reaction, Unknown, seizures, 12/25/19) Patient Home Medication List Home Medication List Reviewed: Yes Amitriptyline HCl (Amitriptyline HCl) 25 Mg Tablet, 25 MG PO HS, (Reported) Entered as Reported by: YUE SHANE on 01/01/22 1530 Last Action: Reviewed Aspirin (Aspirin) 81 Mg Tab.chew, 81 MG PO DAILY, (Reported) Entered as Reported by: JAMAR BORGES on 04/30/21 1440 Last Action: Reviewed Atorvastatin Calcium (Atorvastatin Calcium) 80 Mg Tablet, 80 MG PO HS, (Reported) Entered as Reported by: YUE SHANE on 12/29/19 1013 Last Action: Reviewed Azithromycin (Azithromycin) 250 Mg Tablet, 250 MG PO DAILY, (Reported) Entered as Reported by: CRYSTAL SANTIAGO on 01/01/22 1045 Last Action: Reviewed Budesonide/Formoterol Fumarate (Symbicort 160-4.5 Mcg Inhaler) 160 Mcg-4.5 Mcg/Actuation Hfa.aer.ad, 2 PUFF IH BID, (Reported) Entered as Reported by: CRYSTAL SANTIAGO on 01/01/22 104 Last Action: Reviewed Clopidogrel Bisulfate (Clopidogrel) 75 Mg Tablet, 75 MG PO DAILY, (Reported) Entered as Reported by: YUE SHANE on 12/29/19 1013 Last Action: Reviewed Cyclosporine (Restasis) 0.05 % Droperette, 1 DROP OU BID, (Reported) Entered as Reported by: YUE SHANE on 01/01/22 153 Last Action: Reviewed Dapagliflozin/Metformin HCl (Xigduo Xr 10 mg-1,000 mg Tab) 10 Mg-1,000 Mg Tab.bp.24h, 1 EA PO DAILY, (Reported) Entered as Reported by: YUE SHANE on 01/01/22 153 Last Action: Reviewed Dulaglutide (Trulicity) 4.5 Mg/0.5 Ml Pen.injctr, 4.5 MG INJ WED, (Reported) Entered as Reported by: YUE SHANE on 06/07/21 1044 Last Action: Reviewed Duloxetine HCl (Duloxetine HCl) 30 Mg Capsule.dr, 30 MG PO DAILY, (Reported) Entered as Reported by: CRYSTAL SANTIAGO on 01/01/22 1045 Last Action: Reviewed Duloxetine HCl (Duloxetine HCl) 60 Mg Capsule.dr, 60 MG PO HS, (Reported) Entered as Reported by: YUE SHANE on 01/01/22 153 Last Action: Reviewed Ezetimibe (Ezetimibe) 10 Mg Tablet, 10 MG PO DAILY, (Reported) Entered as Reported by: YUE SHANE on 01/01/221529 Last Action: Reviewed Fenofibrate Nanocrystallized (Fenofibrate) 145 Mg Tablet, 145 MG PO DAILY, (Reported) Entered as Reported by: YUE SHANE on 01/01/221529 Last Action: Reviewed Fluticasone Propionate (Fluticasone Propionate) 16 Gm Issue.susp, 2 SPRAYS NS DAILY PRN for CONGESTION, (Reported) Entered as Reported by: CONRAD SÁNCHEZ on 04/14/18 1009 Last Action: Reviewed Furosemide (Furosemide) 40 Mg Tablet, 40 MG PO DAILY, (Reported) Entered as Reported by: YUE SHANE on 12/29/19 1013 Last Action: Reviewed Insulin Degludec (Tresiba Flextouch U-100) 100 Unit/1 Ml Insuln.pen, 45 UNIT SQ DAILY PRN for ONLY USE IF PUMP FAILS, (Reported) Entered as Reported by: YUE SHANE on 06/07/21 104 Last Action: Reviewed Insulin Lispro (Humalog) 100 Unit/1 Ml Cartridge, 200 UNIT EVERY 72 HOURS, (Reported) Entered as Reported by: JAMAR BORGES on 04/30/21 144 Last Action: Reviewed Levothyroxine Sodium (Levothyroxine Sodium) 75 Mcg Tablet, 75 MCG PO DAILY, (Reported) Entered as Reported by: YUE SHANE on 12/29/19 1013 Last Action: Reviewed Lisinopril (Lisinopril) 40 Mg Tablet, 40 MG PO DAILY, (Reported) Entered as Reported by: JAMAR BORGES on 04/30/21 144 Last Action: Reviewed Melatonin (Melatonin) 5 Mg Tablet, 5 MG PO HS, (Reported) Entered as Reported by: YUE SHANE on 06/07/21 104 Last Action: Reviewed Montelukast Sodium (Montelukast Sodium) 10 Mg Tablet, 10 MG PO HS, (Reported) Entered as Reported by: MICHELLE JORDAN on 07/11/17 1153 Last Action: Reviewed Multivit-Min/FA/Lycopene/Lut (Centrum Silver Tablet) 1 Each Tablet, 1 TAB PO DAILY, (Reported) Entered as Reported by: CONRAD SÁNCHEZ on 04/14/18 1009 Last Action: Reviewed [place]-3 Acid Ethyl Esters ([place]-3 Acid Ethyl Esters) 1 Gm Capsule, 2 GM PO BID, (Reported) Entered as Reported by: YUE SHANE on 12/29/19 1013 Last Action: Reviewed [place]-3/Dha/Epa/Fish Oil (Fish Oil 1,000 mg Softgel) 1,000 Mg (120 Mg-180 Mg) Capsule, 1,000 MG PO BID, (Reported) Entered as Reported by: YUE SHANE on 01/01/22 153 Last Action: Reviewed Pantoprazole Sodium (Pantoprazole Sodium) 40 Mg Tablet.dr, 40 MG PO BID, (Reported) Entered as Reported by: YUE SHANE on 06/07/21 104 Last Action: Reviewed Potassium Chloride (K-Tab ER) 10 Meq Tablet.er, 10 MEQ PO BID, (Reported) Entered as Reported by: YUE SHANE on 12/29/19 101 Last Action: Reviewed Pregabalin (Pregabalin) 100 Mg Capsule, 100 MG PO BID, (Reported) Entered as Reported by: YUE SHANE on 06/07/211043 Last Action: Reviewed Tiotropium [place] (Spiriva Respimat 2.5MCG/ACTUATION) 2.5 Mcg/Actuation Mist.inhal, 2 PUFF IH DAILY, (Reported) Entered as Reported by: YUE SHANE on 01/01/22 153 Last Action: Reviewed Discontinued Medications Fluoxetine HCl (Fluoxetine HCl) 40 Mg Capsule, 40 MG PO DAILY, (Reported) Entered as Reported by: YUE SHANE on 06/07/211043 Last Action: Discontinued Glucagon (Gvoke Hypopen 2-Pack) 1 Mg/0.2 Ml Auto.injct, 1 MG INJ UD PRN for HYPOGLYCEMIA, (Reported) Discontinued Reason: No Longer Taking Entered as Reported by: YUE SHANE on 06/07/21 104 Last Action: Discontinued Oxycodone HCl (Oxycontin) 15 Mg Tab.er.12h, 15 MG PO Q8HR Prescribed by: FRANTZ GROVE on 06/11/21 1153 Last Action: Discontinued Umeclidinium [place] (Incruse Ellipta) 62.5 Mcg Blst.w.dev, 1 PUFF IH DAILY, (Reported) Discontinued Reason: No Longer Taking Entered as Reported by: JAMAR BORGES on 04/30/21 1440 Last Action: Discontinued Past Efipudn-Qpbjiq-Odhyyj Hx Surgeries Surgeries: Abdominal, Appendectomy, Cardiac, Coronary Stent, Gallbladder, 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 Gastrointestinal Gastrointestinal Disorders: Gastroesophageal Reflux, Polyps Family Medical History Significant Family History: Cancer, GI Disease (colon cancer), Other Conditions/Hx (3 brothers and 1 Sister of colon cancer) Family Medial History: Cancer 03 MOTHER (lung cancer 1987) Cardiovascular disease G8 BROTHER G8 SISTER Diabetes mellitus G8 SISTER Family history: Asthma 03 MOTHER Family history: Cardiovascular disease 03 FATHER Family history: Hypertension 03 MOTHER Family history: Osteoporosis 03 MOTHER History of - respiratory disease Hypertension G8 BROTHER G8 SISTER Respiratory disorder G8 BROTHER (LUNG CA) Stroke 03 MOTHER ( stroke paraylsis lower extremies w/c ) Review of Systems-General Constitutional: chills, diaphoresis, dizziness, weakness EENTM: blurred vision, vision loss Respiratory: short of breath, wheezing Cardiovascular: No chest pain, No palpitations Gastrointestinal: LLQ, abdominal pain ( LLQ), diarrhea, melena, nausea Genitourinary: No dysuria, No frequency : No Musculoskeletal: No muscle pain, No muscle stiffness; muscle weakness Skin: No pruritus, No rash Psychiatric/Neurological: Anxiety, Weakness All Other Systems Reviewed Negative Unless Noted: Yes (Negative excepted noted.) Physical Exam-General Problems Physical Exam General Appearance: WD/WN, no apparent distress HEENT: PERRL/EOMI, normal ENT inspection Neck: non-tender, supple Respiratory: chest non-tender, no respiratory distress, no accessory muscle use Cardiovascular: regular rate, rhythm, no JVD Gastrointestinal: soft, no organomegaly Rectal: deferred Back: normal inspection, no CVA tenderness, other (diffuse low back pain) Extremities: non-tender, normal inspection, no calf tenderness Neurologic/Psychiatric: alert, normal mood/affect, oriented x 3 Skin: normal color, warm/dry Lymphatic: no adenopathy Assessment/Plan Assessment/Plan Assessment/Plan LLQ Abdominal pain GI bleed Colitis Antiplatelet assisted use nausea stool studies Clear liquid Hold anti-platelets Had recent colonoscopy in April hgb transufe prbc as needed Supervisory-Addendum Brief Verification & Attestation Participated in pt care: history, MDM, physical Personally performed: exam, history, MDM, supervision of care Care discussed with: Medical Student Procedures: n/a Results interpretation: Verified all documentation Verification and Attestation of Medical Student E/M Service A medical student performed and documented this service in my presence. I reviewed and verified all information documented by the medical student and made modifications to such information, when appropriate. I personally performed the physical exam and medical decision making. Delia Brower, Jan 01, 2022,17:59 TARA GASTELUM Jan 01, 2022 07:58 DELIA BROWER DO Jan 02, 2022 07:57
[2022-01-01 08:00] VITALS: BP 185/74
--- NOTE | 2022-01-01 10:32 | History & Physical ---
HPI History of Present Illness: 71yo female came to ER after having rectal bleeding at home starting around 4 pm. She had lunch out at 2 pm and had severe stomach pain and got lightheaded and felt she might pass out, started having stool initially, but turned to just blood around 4 pm. Was having about every 30 minutes at home before arrival. Has been better since she's been in the hospital but is still having bleeding. Having lower abdominal pain and rectal pain. Pain feels like cramping like she has to go to the bathroom really badly. This pain crescendoes and goes down again after bowel movements. Reports history of polyps, last colonoscopy around a year ago with Dr. Zuñiga. Does have family history of colon cancer, few br others and a sister. Her mother had lung cancer and COPD. Has supplemental oxygen dependent COPD, on 3lpm. Date seen by provider: Jan 01, 2022 Time Seen by Provider: 10:32 Attending Physician [place] PCP Admitting Physician: Crystal Box MD Attending Physician: Crystal Box MD Consult Date of Admission Jan 01, 2022 at 04:55 Home Medications Home Medications Reviewed patient Home Medication Reconciliation performed by pharmacy medication reconciliations dental technician instructor and/or nursing. Patients Allergies have been reviewed. Allergies Coded Allergies: dornase lloyd (Verified Allergy, Unknown, RAPID HEART BEAT, 03/23/17) Penicillins (Verified Adverse Reaction, Mild, NAUSEA, 03/23/17) codeine (Verified Adverse Reaction, Mild, NAUSEA, PT TAKES HYDROCODONE AT HOME, 03/23/17) etomidate (Verified Adverse Reaction, Unknown, seizures, 12/25/19) [id number] Hx Patient Social History Smoking Status: Former Smoker (50 pack year history) Former smoker/When Quit: May 22, 2001 2nd Hand Smoke Exposure: No Recent Hopitalizations: No Alcohol Use?: No Have you traveled recently?: No Immunizations Up To Date Tetanus Booster (TDap): Unknown Influenza Vaccine Up-to-Date: Yes; Up-to-Date First/Initial COVID19 Vaccinat: MARCH 2020 Second COVID19 Vaccination Carlos: APRIL 2020 Third COVID19 Vaccination Date: DECEMBER 2020 COVID19 Vaccine Water Technician: Jacinta Past Medical History Past Medical History 1. Dysphagia with risk for aspiration per Speech post op cervical fusion.02/03. Resolved per swallow study. 2. DJD 3. COPD- on home O2 4. DM 5. HLP 6. RLE weakness with AFO secondary to "peripheral neuropathy" 7. STACY- on CPAP 8. Morbid Obesity 9. History of LLL pneumonia sp surgery 02/03 with work up by Dr. Reid in the past 10. Fibromyalgia 11. IBS 12. Coronary artery disease with stenting 13. 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 ACDF C5-7 02/03 2. 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 3. Appendectomy 4. Rotator cuff repair 93 5. Tonsillectomy 6. Tracheostomy 05/09 Family Medical History Significant Family History: Cancer, GI Disease (colon cancer), Other Conditions/Hx (3 brothers and 1 Sister of colon cancer) Family History: Cancer 03 MOTHER (lung cancer 1987) Cardiovascular disease G8 BROTHER G8 SISTER Diabetes mellitus G8 SISTER Family history: Asthma 03 MOTHER Family history: Cardiovascular disease 03 FATHER Family history: Hypertension 03 MOTHER Family history: Osteoporosis 03 MOTHER History of - respiratory disease Hypertension G8 BROTHER G8 SISTER Respiratory disorder G8 BROTHER (LUNG CA) Stroke 03 MOTHER ( stroke paraylsis lower extremies w/c ) Review of Systems (CHC) Constitutional: No fever Respiratory: short of breath (chronic) Cardiovascular: No chest pain Gastrointestinal: abdominal pain, diarrhea, nausea; No vomiting Genitourinary: No dysuria Musculoskeletal: joint pain Skin: No rash Psychiatric/Neurological: Anxiety, Depressed Reviewed Test Results Reviewed Test Results Lab Laboratory Tests Test 01/01/22 02:20 01/01/22 02:50 01/01/22 06:09 Range/Units White Blood Count 10.9 4.3-11.0 10^3/uL Red Blood Count 4.23 3.80-5.11 10^6/uL Hemoglobin 12.4 11.5-16.0 g/dL Hematocrit 37 35-52 % Mean Corpuscular Volume 87 80-99 fL Mean Corpuscular Hemoglobin 29 25-34 pg Mean Corpuscular Hemoglobin Concent 34 32-36 g/dL Red Cell Distribution Width 13.3 10.0-14.5 % Platelet Count 205 130-400 10^3/uL Mean Platelet Volume 10.2 9.0-12.2 fL Immature Granulocyte % (Auto) 1 % Neutrophils (%) (Auto) 60 42-75 % Lymphocytes (%) (Auto) 29 12-44 % Monocytes (%) (Auto) 8 0-12 % Eosinophils (%) (Auto) 1 0-10 % Basophils (%) (Auto) 0 0-10 % Neutrophils # (Auto) 6.6 1.8-7.8 10^3/uL Lymphocytes # (Auto) 3.2 1.0-4.0 10^3/uL Monocytes # (Auto) 0.9 0.0-1.0 10^3/uL Eosinophils # (Auto) 0.2 0.0-0.3 10^3/uL Basophils # (Auto) 0.0 0.0-0.1 10^3/uL Immature Granulocyte # (Auto) 0.1 0.0-0.1 10^3/uL Prothrombin Time 11.9 L 12.2-14.7 SEC INR Comment 0.8 0.8-1.4 Activated Partial Thromboplast Time 25 24-35 SEC Sodium Level 138 135-145 MMOL/L Potassium Level 3.8 3.6-5.0 MMOL/L Chloride Level 106 98-107 MMOL/L Carbon Dioxide Level 20 L 21-32 MMOL/L Anion Gap 12 5-14 MMOL/L Blood Urea Nitrogen 23 H 7-18 MG/DL Creatinine 1.18 0.60-1.30 MG/DL Estimat Glomerular Filtration Rate 50 BUN/Creatinine Ratio 19 Glucose Level 166 H 70-105 MG/DL Calcium Level 9.4 8.5-10.1 MG/DL Corrected Calcium 9.2 8.5-10.1 MG/DL Magnesium Level 1.8 1.6-2.4 MG/DL Total Bilirubin 0.6 0.1-1.0 MG/DL Aspartate Amino Transf (AST/SGOT) 25 5-34 U/L Alanine Aminotransferase (ALT/SGPT) 31 0-55 U/L Alkaline Phosphatase 52 40-136 U/L Total Protein 6.4 6.4-8.2 GM/DL Albumin 4.3 3.2-4.5 GM/DL Amylase Level 47 25-125 U/L Lipase 54 8-78 U/L Serum Alcohol < 10 <10 MG/DL Urine Color YELLOW Urine Clarity CLEAR Urine pH 5.5 5-9 Urine Specific [place] 1.010 L 1.016-1.022 Urine Protein NEGATIVE NEGATIVE Urine Glucose (UA) NEGATIVE NEGATIVE Urine Ketones NEGATIVE NEGATIVE Urine Nitrite NEGATIVE NEGATIVE Urine Bilirubin NEGATIVE NEGATIVE Urine Urobilinogen 0.2 < = 1.0 MG/DL Urine Leukocyte Esterase TRACE H NEGATIVE Urine RBC (Auto) NEGATIVE NEGATIVE Urine RBC NONE /HPF Urine WBC 2-5 /HPF Urine Squamous Epithelial Cells 0-2 /HPF Urine Crystals NONE /LPF Urine Bacteria FEW H /HPF Urine Casts NONE /LPF Urine Mucus NEGATIVE /LPF Urine Culture Indicated YES Urine Opiates Screen NEGATIVE NEGATIVE Urine Oxycodone Screen NEGATIVE NEGATIVE Urine Methadone Screen NEGATIVE NEGATIVE Urine Propoxyphene Screen NEGATIVE NEGATIVE Urine Barbiturates Screen NEGATIVE NEGATIVE Ur Tricyclic Antidepressants Screen POSITIVE H NEGATIVE Urine Phencyclidine Screen NEGATIVE NEGATIVE Urine Amphetamines Screen NEGATIVE NEGATIVE Urine Methamphetamines Screen NEGATIVE NEGATIVE Urine Benzodiazepines Screen NEGATIVE NEGATIVE Urine Cocaine Screen NEGATIVE NEGATIVE Urine Cannabinoids Screen NEGATIVE NEGATIVE Glucometer 136 H 70-110 MG/DL Radiology 01/01/22- CT ABDOMEN AND PELVIS. 1. Wall thickening of the left colon and distal transverse colon most compatible with a nonspecific colitis. Infectious and inflammatory etiologies would be favored. Physical Exam-(CHC) Physical Exam Vital Signs VS - Last 72 Hours, by Label 01/01/22 01/01/22 01/01/22 01/01/22 03:00 03:04 05:59 06:05 Temp 37.0 36.9 Pulse 74 69 70 Resp 20 18 B/P (MAP) 187/99 (128) 146/78 (100) Pulse Ox 100 97 O2 Delivery Nasal Cannula Nasal Cannula Room Air O2 Flow Rate 3.00 2.00 01/01/22 01/01/22 01/01/22 01/01/22 06:43 07:30 07:58 08:00 Temp 36.7 Pulse 69 76 Resp 16 B/P (MAP) 185/74 (111) Pulse Ox 99 O2 Delivery Room Air Room Air Room Air 01/01/22 01/01/22 08:12 11:56 Temp 36.4 Pulse 83 Resp 18 B/P (MAP) 156/74 (101) Pulse Ox 97 98 O2 Delivery Nasal Cannula Room Air O2 Flow Rate 2.00 Capillary Refill : Less Than 3 Seconds General Appearance: WD/WN Respiratory: lungs clear, normal breath sounds Cardiovascular: regular rate, rhythm, no murmur Gastrointestinal: normal bowel sounds, soft, tenderness Extremities: non-tender, no pedal edema Neurologic/Psychiatric: alert, normal mood/affect Skin: normal color, warm/dry Assessment/Plan Assessment/Plan Admission Status: Inpatient Order (span 2 midnights) Reason for Inpatient Admission: GI bleed with multiple comorbidities (1) GI bleed Status: Acute Assessment & Plan: Suspect possibly due to colitis, Surgery consulted, appreciate recommendations. Holding aspirin and clopidogrel. (2) Colitis Status: Acute Assessment & Plan: Cipro/flagyl, IVF. (3) IDDM (insulin dependent diabetes mellitus) Status: Chronic Assessment & Plan: Diabetic diet, sliding scale insulin. (4) CAD (coronary artery disease) Status: Chronic Qualifiers: Qualified Codes: I25.10 - Atherosclerotic heart disease of [place] coronary artery without angina pectoris (5) Hyperlipidemia Status: Chronic (6) HTN (hypertension) Status: Chronic Qualifiers: Qualified Codes: I10 - Essential (primary) hypertension (7) COPD (chronic obstructive pulmonary disease) Status: Chronic (8) Obstructive sleep apnea on CPAP Status: Chronic (9) Morbid obesity Status: Chronic (10) Fibromyalgia Status: Chronic CRYSTAL BOX MD Jan 01, 2022 10:32
[2022-01-01] MEDS ORDERED: DULO30CA49 PO (10:45)
[2022-01-01] MEDS ORDERED: AZIT250T12 PO (10:45)
[2022-01-01] MEDS ORDERED: BUDE10.2 IH (10:45)
[2022-01-01] MEDS: CIPROFLOXACIN IV 400MG/200ML 200 ML IV SCH ×2 (11:02→22:32)
[2022-01-01] MEDS: inSUlin ASPART (NovoLOG) 1 UNIT/0.01 ML (CHARGE PER UNIT) SC SCH ×3 (11:02→21:03)
[2022-01-01 11:56] VITALS: BP 156/74
[2022-01-01] MEDS: metroNIDAZOLE 500MG/100ML IVPB 100 ML IV SCH ×2 (13:15→21:07)
[2022-01-01] MEDS ORDERED: FLUTICASONE NASAL SPRAY (FLONASE) 16 GM BTL NS PRN (14:30)
[2022-01-01] MEDS ORDERED: TIOT4MIS2 IH (15:30)
[2022-01-01] MEDS ORDERED: DAPA1TAB5 PO (15:30)
[2022-01-01] MEDS ORDERED: CYCL1DRO OU (15:30)
[2022-01-01] MEDS ORDERED: FENO145T26 PO (15:30)
[2022-01-01] MEDS ORDERED: AMIT25TA9 PO (15:30)
[2022-01-01] MEDS ORDERED: OMEG100032 PO (15:30)
[2022-01-01] MEDS ORDERED: EZET10TA49 PO (15:30)
[2022-01-01] MEDS ORDERED: DULO60CA59 PO (15:30)
[2022-01-01 15:50] VITALS: BP 156/73
[2022-01-01] MEDS: RT--FLUTICASONE/SALMETEROL 232-14 (AIRDUO RespiCLICK) IH SCH (18:34)
[2022-01-01 19:38] VITALS: BP 151/73
[2022-01-01] MEDS ORDERED: NON-FORMULARY MEDICATION 1 EA EA (Budesonide/Formoterol Fumarate (Symbicort 160-4.5 Mcg In IH SCH (21:00)
[2022-01-01] MEDS: PREGABALIN 100 MG (LYRICA) CAPSULE PO SCH (21:08)
[2022-01-01] MEDS: MONTELUKAST 10 MG (SINGULAIR) TAB PO SCH (21:08)
[2022-01-01] MEDS: PANTOPRAZOLE 40 MG (PROTONIX) TAB PO SCH (21:08)
[2022-01-01] MEDS: MELATONIN 10 MG TABLET PO SCH (21:08)
[2022-01-01 23:18] VITALS: BP 146/78
[2022-01-02 03:31] VITALS: BP 122/65
[2022-01-02 05:46] LABS: BASOPHILS % (AUTO) 0 % (0-10); EOSINOPHILS # (AUTO) 0.1 10^3/uL (0.0-0.3); EOSINOPHILS % (AUTO) 2 % (0-10); HEMATOCRIT 35 % (35-52); HEMOGLOBIN 11.4 g/dL (11.5-16.0); LYMPHOCYTES % (AUTO) 30 % (12-44); MEAN CORPUSCULAR HEMOGLOBIN 29 pg (25-34); MEAN CORPUSCULAR HGB CONC 33 g/dL (32-36); MEAN CORPUSCULAR VOLUME 89 fL (80-99); MEAN PLATELET VOLUME 10.3 fL (9.0-12.2); MONOCYTES # (AUTO) 0.7 10^3/uL (0.0-1.0); MONOCYTES % (AUTO) 10 % (0-12); NEUTROPHILS % (AUTO) 58 % (42-75); PLATELET COUNT 154 10^3/uL (130-400); WHITE BLOOD COUNT 6.9 10^3/uL (4.3-11.0)
[2022-01-02] MEDS: inSUlin ASPART (NovoLOG) 1 UNIT/0.01 ML (CHARGE PER UNIT) SC SCH ×4 (05:52→21:04)
[2022-01-02] MEDS: LEVOTHYROXINE 75 MCG (LEVOTHROID) TABLET PO SCH (05:56)
[2022-01-02] MEDS: metroNIDAZOLE 500MG/100ML IVPB 100 ML IV SCH ×3 (05:56→21:04)
[2022-01-02] MEDS: NS IV 1000 ML 1,000 ML IV SCH ×4 (05:56→19:55)
[2022-01-02 06:04] LABS: CALCIUM 8.6 MG/DL (8.5-10.1); CREATININE SERUM 0.76 MG/DL (0.60-1.30); POTASSIUM 3.7 MMOL/L (3.6-5.0)
--- NOTE | 2022-01-02 07:29 | Progress Note - Surgery ---
TARA GASTELUM 01/02/22 0729: Subjective Date Seen by a Provider: Jan 02, 2022 Time Seen by a Provider: 07:15 Subjective/Events-last exam 71 F day 2 of admission for abdominal pain and rectal bleeding. Today, pt in good spirits resting in bed and claimed has not has a BM since yesterday and denies any rectal bleeding. Lower abdominal pain has improved to a 3/10 and is no longer constant. Denies any fever, N/V, chills, lightheadedness, or diaphoresis. Pt reports increased appetite. Review of Systems General: No Chills, No Night Sweats; Appetite HEENT: No Head Aches, No Visual Changes Pulmonary: Dyspnea (chronic); No Cough Cardiovascular: No: Chest Pain, Palpitations, Lt Headedness Gastrointestinal: No: Nausea, Vomiting, Diarrhea Genitourinary: No Dysuria, No Frequency Musculoskeletal: back pain; No: leg pain Neurological: Weakness; No: Numbness, Change in speech Objective Exam Vital Signs Date Time Temp Pulse Resp B/P (MAP) Pulse Ox O2 Delivery O2 Flow Rate FiO2 01/02/22 03:31 36.1 67 18 122/65 (84) 98 Nasal Cannula 2.00 01/02/22 01:00 64 01/01/22 23:18 36.5 87 18 146/78 (100) 93 Nasal Cannula 2.00 01/01/22 20:45 Room Air 01/01/22 19:38 36.5 71 18 151/73 (99) 99 Room Air 01/01/22 19:38 72 01/01/22 18:35 98 Nasal Cannula 2.00 01/01/22 15:50 36.1 70 20 156/73 (100) 98 Room Air 01/01/22 11:56 36.4 83 18 156/74 (101) 98 Room Air 01/01/22 08:12 97 Nasal Cannula 2.00 01/01/22 08:00 36.7 76 16 185/74 (111) 99 Room Air 01/01/22 07:58 Room Air 01/01/22 07:30 69 I & O 01/02/22 07:00 Intake Total 3460 ml Output Total 5000 ml Balance -1540 ml Capillary Refill : Less Than 3 Seconds General Appearance: No Apparent Distress; No Anxious; Obese HEENT: PERRL/EOMI; No Photophobia Neck: Normal Inspection, Non Tender Respiratory: Chest Non Tender, No Accessory Muscle Use, No Respiratory Distress, Wheezing (on expiration) Cardiovascular: Regular Rate, Rhythm, No Murmur, Normal Peripheral Pulses Peripheral Pulses: 3+ Dorsalis Pedis (R), 3+ Left Dors-Pedis (L), 3+ Radial Pulses (R), 3+ Radial Pulses (L) Gastrointestinal: normal bowel sounds, soft, no organomegaly, no pulsatile mass; No guarding, No rebound; tenderness Extremity: Normal Capillary Refill, Non Tender, No Calf Tenderness Neurologic/Psychiatric: Alert, Oriented x3 Skin: Normal Color, Warm/Dry; No Diaphoresis Lymphatic: No Adenopathy Results Lab Laboratory Tests 01/01/22 10:44: Glucometer 186H 01/01/22 16:39: Glucometer 148H 01/01/22 21:00: Glucometer 147H 01/02/22 05:20: Glucometer 130H 01/02/22 05:25: White Blood Count 6.9, Red Blood Count 3.88, Hemoglobin 11.4L, Hematocrit 35, Mean Corpuscular Volume 89, Mean Corpuscular Hemoglobin 29, Mean Corpuscular Hemoglobin Concent 33, Red Cell Distribution Width 13.3, Platelet Count 154, Mean Platelet Volume 10.3, Immature Granulocyte % (Auto) 0, Neutrophils (%) (Auto) 58, Lymphocytes (%) (Auto) 30, Monocytes (%) (Auto) 10, Eosinophils (%) (Auto) 2, Basophils (%) (Auto) 0, Neutrophils # (Auto) 4.0, Lymphocytes # (Auto) 2.0, Monocytes # (Auto) 0.7, Eosinophils # (Auto) 0.1, Basophils # (Auto) 0.0, Immature Granulocyte # (Auto) 0.0, Sodium Level 142, Potassium Level 3.7, Chloride Level 110H, Carbon Dioxide Level 21, Anion Gap 11, Blood Urea Nitrogen 9, Creatinine 0.76, Estimat Glomerular Filtration Rate 85, BUN/Creatinine Ratio 12, Glucose Level 125H, Calcium Level 8.6 Microbiology 01/01/22 C. difficile GDH Antigen & Toxins - Final, Resulted 01/01/22 Stool Culture, Resulted Pending 01/01/22 Urine Culture - Preliminary, Resulted Culture In Progress Assessment/Plan Assessment/Plan Admission Diagonsis Abdominal pain and rectal bleeding Assessment/Plan Abdominal pain GI bleed nausea NPO Hold anti-coag regimen continue abx therapy Final Diagnosis Colitis INOCENTEDELIA Castorena DO 01/02/22 1323: Subjective Subjective/Events-last exam Feeling better. No abdominal pain. No blood since yesterday. Denies n/v fever sweats chills shortness of breath or chest pain. Tolerating clears. Objective Exam General Appearance: No Apparent Distress, Obese HEENT: PERRL/EOMI, Normal ENT Inspection Neck: Normal Inspection, Non Tender Respiratory: Chest Non Tender, No Accessory Muscle Use, No Respiratory Distress Cardiovascular: Regular Rate, Rhythm, No JVD Gastrointestinal: soft; No guarding, No rebound, No tenderness Extremity: Normal Capillary Refill, Non Tender, No Calf Tenderness Neurologic/Psychiatric: Alert, Oriented x3 Skin: Normal Color, Warm/Dry Lymphatic: No Adenopathy Assessment/Plan Assessment/Plan Assessment/Plan LLQ Abdominal pain GI bleed Colitis Antiplatelet long term care pharmacist use nausea stool studies Clear liquid can advance Hold anti-platelets Had recent colonoscopy in April Follow hgb transufe prbc as needed Supervisory-Addendum Brief Verification & Attestation Participated in pt care: history, MDM, physical Personally performed: exam, history, MDM, supervision of care Care discussed with: Medical Student Procedures: n/a Results interpretation: Verified all documentation Verification and Attestation of Medical Student E/M Service A medical student performed and documented this service in my presence. I reviewed and verified all information documented by the medical student and made modifications to such information, when appropriate. I personally performed the physical exam and medical decision making. Delia Muñiz, Jan 02, 2022,13:22 TARA GASTELUM Jan 02, 2022 07:29 DELIA MUÑIZ DO Jan 02, 2022 13:23
[2022-01-02 08:14] VITALS: BP 163/74
[2022-01-02] MEDS: lisINopril 40 MG (PRINIVIL) TABLET PO SCH (08:41)
[2022-01-02] MEDS: PREGABALIN 100 MG (LYRICA) CAPSULE PO SCH ×2 (08:41→19:49)
[2022-01-02] MEDS: PANTOPRAZOLE 40 MG (PROTONIX) TAB PO SCH ×2 (08:41→19:49)
[2022-01-02] MEDS ORDERED: CIPROFLOXACIN IV 400MG/200ML 200 ML IV SCH (09:00)
[2022-01-02] MEDS: RT--FLUTICASONE/SALMETEROL 232-14 (AIRDUO RespiCLICK) IH SCH ×2 (11:20→19:52)
[2022-01-02] MEDS: UMECLIDINIUM BROMIDE (INCRUSE ELLIPTA) 7'S IH SCH (11:21)
[2022-01-02 11:36] VITALS: BP 153/67
[2022-01-02] MEDS: CIPROFLOXACIN IV 400MG/200ML 200 ML IV SCH ×2 (11:55→23:17)
--- NOTE | 2022-01-02 13:01 | Progress Note ---
Subjective Subjective/Events-last exam Pt sitting up in chair, smiling, states she is feeling well and hoping to go home. She admits she continued to have blood per rectum through last evening, has not had any today. Objective Exam Last Set of Vital Signs Vital Signs Date Time Temp Pulse Resp B/P (MAP) Pulse Ox O2 Delivery O2 Flow Rate FiO2 01/02/22 11:36 36.0 67 18 153/67 (95) 97 Nasal Cannula 2.00 Capillary Refill : Less Than 3 Seconds I&O Intake and Output 01/02/22 00:00 Intake Total 3860 ml Output Total 2300 ml Balance 1560 ml Intake Oral 1660 ml IV Total 2200 ml Output Urine Total 2300 ml # Voids 3 # Bowel Movements 1 Daily Weight Change Unsure General: Alert Lungs: Clear to Auscultation Heart: Regular Rate Abdomen: Normal Bowel Sounds, Soft, No Tenderness Psych/Mental Status: Mental Status NL, Mood NL Results/Procedures Lab Laboratory Tests 01/01/22 16:39: Glucometer 148H 01/01/22 21:00: Glucometer 147H 01/02/22 05:20: Glucometer 130H 01/02/22 05:25: White Blood Count 6.9, Red Blood Count 3.88, Hemoglobin 11.4L, Hematocrit 35, Mean Corpuscular Volume 89, Mean Corpuscular Hemoglobin 29, Mean Corpuscular Hemoglobin Concent 33, Red Cell Distribution Width 13.3, Platelet Count 154, Mean Platelet Volume 10.3, Immature Granulocyte % (Auto) 0, Neutrophils (%) (Auto) 58, Lymphocytes (%) (Auto) 30, Monocytes (%) (Auto) 10, Eosinophils (%) (Auto) 2, Basophils (%) (Auto) 0, Neutrophils # (Auto) 4.0, Lymphocytes # (Auto) 2.0, Monocytes # (Auto) 0.7, Eosinophils # (Auto) 0.1, Basophils # (Auto) 0.0, Immature Granulocyte # (Auto) 0.0, Sodium Level 142, Potassium Level 3.7, Chloride Level 110H, Carbon Dioxide Level 21, Anion Gap 11, Blood Urea Nitrogen 9, Creatinine 0.76, Estimat Glomerular Filtration Rate 85, BUN/Creatinine Ratio 12, Glucose Level 125H, Calcium Level 8.6 01/02/22 11:05: Glucometer 182H Microbiology 01/01/22 C. difficile GDH Antigen & Toxins - Final, Resulted 01/01/22 Stool Culture, Resulted Pending 01/01/22 Urine Culture - Final, Complete Mixed Bacterial [place] Radiology 01/01/22- CT ABDOMEN AND PELVIS. 1. Wall thickening of the left colon and distal transverse colon most compatible with a nonspecific colitis. Infectious and inflammatory etiologies would be favored. Assessment/Plan Assessment/Plan (1) GI bleed Status: Acute Assessment & Plan: Suspect possibly due to colitis, Surgery consulted, appreciate recommendations. Holding aspirin and clopidogrel. 01/02/22 improving and hemoglobin stable, but given gross blood as recent as last evening, will advance diet carefully and monitor through today. (2) Colitis Status: Acute Assessment & Plan: Cipro/flagyl, IVF. 01/02 decrease IVF rate to 100 cc/hr, tolerating liquids well. (3) IDDM (insulin dependent diabetes mellitus) Status: Chronic Assessment & Plan: Diabetic diet, sliding scale insulin. (4) CAD (coronary artery disease) Status: Chronic Qualifiers: Qualified Codes: I25.10 - Atherosclerotic heart disease of [place] coronary artery without angina pectoris (5) Hyperlipidemia Status: Chronic (6) HTN (hypertension) Status: Chronic Qualifiers: Qualified Codes: I10 - Essential (primary) hypertension (7) COPD (chronic obstructive pulmonary disease) Status: Chronic (8) Obstructive sleep apnea on CPAP Status: Chronic (9) Morbid obesity Status: Chronic (10) Fibromyalgia Status: Chronic CRYSTAL SANTIAGO MD Jan 02, 2022 13:01
[2022-01-02 15:36] VITALS: BP 122/77
[2022-01-02 19:39] VITALS: BP 132/72
[2022-01-02] MEDS: MELATONIN 10 MG TABLET PO SCH (19:49)
[2022-01-02] MEDS: MONTELUKAST 10 MG (SINGULAIR) TAB PO SCH (19:50)
[2022-01-02 23:43] VITALS: BP 135/69
[2022-01-03 03:51] VITALS: BP 144/72
[2022-01-03] MEDS: inSUlin ASPART (NovoLOG) 1 UNIT/0.01 ML (CHARGE PER UNIT) SC SCH (05:54)
[2022-01-03] MEDS: LEVOTHYROXINE 75 MCG (LEVOTHROID) TABLET PO SCH (05:57)
[2022-01-03] MEDS ORDERED: metroNIDAZOLE 500 MG (FLAGYL) TAB PO SCH (06:00)
[2022-01-03 06:07] LABS: HEMATOCRIT 32 % (35-52); HEMOGLOBIN 10.6 g/dL (11.5-16.0); MEAN CORPUSCULAR HEMOGLOBIN 30 pg (25-34); MEAN CORPUSCULAR HGB CONC 34 g/dL (32-36); MEAN CORPUSCULAR VOLUME 88 fL (80-99); MEAN PLATELET VOLUME 10.5 fL (9.0-12.2); PLATELET COUNT 166 10^3/uL (130-400); WHITE BLOOD COUNT 5.9 10^3/uL (4.3-11.0)
[2022-01-03 06:15] LABS: POTASSIUM 3.4 MMOL/L (3.6-5.0)
[2022-01-03 06:16] LABS: CALCIUM 8.9 MG/DL (8.5-10.1)
[2022-01-03 06:20] LABS: CREATININE SERUM 0.83 MG/DL (0.60-1.30)
--- NOTE | 2022-01-03 07:19 | Progress Note - Surgery ---
TARA GASTELUM 01/03/22 0719: Subjective Date Seen by a Provider: Jan 03, 2022 Time Seen by a Provider: 07:00 Subjective/Events-last exam 71 F day 3 of admission for abdominal pain and rectal bleeeding. Pt is in good spirits today resting in chair. Pt claims she has not had a BM since day of adm ission. Pt denies any abdominal pain today. Denies fever, CP, lightheadedness, or diaphoresis. Pt was able to tolerate bland diet with no complaints. Pt claims she has has an increase in appetite. Nausea has subsided since admission. Review of Systems General: No Chills, No Night Sweats, No Fatigue HEENT: No Head Aches, No Visual Changes Pulmonary: Dyspnea (chronic); No Cough Cardiovascular: No: Chest Pain, Palpitations Gastrointestinal: No: Nausea, Vomiting Genitourinary: No Dysuria, No Frequency Musculoskeletal: back pain; No: leg pain Neurological: No: Weakness, Numbness Objective Exam Vital Signs Date Time Temp Pulse Resp B/P (MAP) Pulse Ox O2 Delivery O2 Flow Rate FiO2 01/03/22 03:51 36.0 63 18 144/72 (96) 96 Nasal Cannula 2.00 01/03/22 00:44 64 01/02/22 23:43 36.3 78 18 135/69 (91) 95 Nasal Cannula 2.00 01/02/22 20:23 Nasal Cannula 2.00 01/02/22 19:39 36.9 72 18 132/72 (92) 96 Nasal Cannula 2.00 01/02/22 15:36 36.4 65 18 122/77 (92) 99 Nasal Cannula 2.00 01/02/22 13:07 67 01/02/22 11:36 36.0 67 18 153/67 (95) 97 Nasal Cannula 2.00 01/02/22 11:21 97 Nasal Cannula 2.00 01/02/22 08:14 36.4 67 19 163/74 (103) 98 Nasal Cannula 2.00 01/02/22 08:00 Nasal Cannula 2.00 I & O 01/03/22 07:00 Intake Total 2260 ml Output Total 1350 ml Balance 910 ml Capillary Refill : Less Than 3 Seconds General Appearance: No Apparent Distress, Obese HEENT: PERRL/EOMI, Normal ENT Inspection Neck: Normal Inspection, Non Tender Respiratory: Chest Non Tender, No Accessory Muscle Use, No Respiratory Distress, Wheezing (on expiration) Cardiovascular: Regular Rate, Rhythm, No Murmur, Normal Peripheral Pulses Peripheral Pulses: 3+ Dorsalis Pedis (R), 3+ Left Dors-Pedis (L), 3+ Radial Pulses (R), 3+ Radial Pulses (L) Gastrointestinal: normal bowel sounds, non tender, soft, no organomegaly, no pulsatile mass; No guarding, No rebound, No tenderness Extremity: Normal Capillary Refill, Non Tender, No Calf Tenderness Neurologic/Psychiatric: Alert, Oriented x3 Skin: Normal Color, Warm/Dry Lymphatic: No Adenopathy Results Lab Laboratory Tests 01/02/22 11:05: Glucometer 182H 01/02/22 15:29: Glucometer 125H 01/02/22 20:54: Glucometer 151H 01/03/22 05:26: White Blood Count 5.9, Red Blood Count 3.59L, Hemoglobin 10.6L, Hematocrit 32L, Mean Corpuscular Volume 88, Mean Corpuscular Hemoglobin 30, Mean Corpuscular Hemoglobin Concent 34, Red Cell Distribution Width 13.0, Platelet Count 166, Mean Platelet Volume 10.5, Sodium Level 141, Potassium Level 3.4L, Chloride Level 109H, Carbon Dioxide Level 24, Anion Gap 8, Blood Urea Nitrogen 13, Creatinine 0.83, Estimat Glomerular Filtration Rate 76, BUN/Creatinine Ratio 16, Glucose Level 126H, Calcium Level 8.9 01/03/22 05:44: Glucometer 127H Microbiology 01/01/22 C. 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
[2022-01-03] MEDS ORDERED: CIPR-225 PO (07:40)
[2022-01-03] MEDS ORDERED: METR-145 PO (07:40)
[2022-01-03] MEDS ORDERED: KCL 20 MEQ TAB (K-DUR) PO NR (08:00)
[2022-01-03] MEDS: UMECLIDINIUM BROMIDE (INCRUSE ELLIPTA) 7'S IH SCH (08:07)
[2022-01-03] MEDS: RT--FLUTICASONE/SALMETEROL 232-14 (AIRDUO RespiCLICK) IH SCH (08:07)
[2022-01-03 08:09] VITALS: BP 171/80
[2022-01-03] MEDS: lisINopril 40 MG (PRINIVIL) TABLET PO SCH (08:21)
[2022-01-03] MEDS: PREGABALIN 100 MG (LYRICA) CAPSULE PO SCH (08:21)
[2022-01-03] MEDS: PANTOPRAZOLE 40 MG (PROTONIX) TAB PO SCH (08:22)
--- NOTE | 2022-01-03 10:20 | Discharge Summary ---
Discharge [facility] Discharge Medications New, Converted or Re-Newed RX: Transmitted to Pharmacy New Medications: Ciprofloxacin HCl (Cipro) 500 Mg Tablet 500 MG PO BID for 8 Days, #16 TAB 0 Refills Metronidazole (Metronidazole) 500 Mg Tablet 500 MG PO Q8HR for 8 Days, #24 TAB 0 Refills Continued Medications: Amitriptyline HCl (Amitriptyline HCl) 25 Mg Tablet 25 MG PO HS, TAB Aspirin (Aspirin) 81 Mg Tab.chew 81 MG PO DAILY, TAB Budesonide/Formoterol Fumarate (Symbicort 160-4.5 Mcg Inhaler) 160 Mcg-4.5 Mcg/Actuation Hfa.aer.ad 2 PUFF IH BID Cyclosporine (Restasis) 0.05 % Droperette 1 DROP OU BID, TAB Dapagliflozin/Metformin HCl (Xigduo Xr 10 mg-1,000 mg Tab) 10 Mg-1,000 Mg Tab.bp.24h 1 EA PO DAILY, TAB Dulaglutide (Trulicity) 4.5 Mg/0.5 Ml Pen.injctr 4.5 MG INJ WED, EA Duloxetine HCl (Duloxetine HCl) 30 Mg Capsule.dr 30 MG PO DAILY Duloxetine HCl (Duloxetine HCl) 60 Mg Capsule.dr 60 MG PO HS, CAP Ezetimibe (Ezetimibe) 10 Mg Tablet 10 MG PO DAILY, TAB Fenofibrate Nanocrystallized (Fenofibrate) 145 Mg Tablet 145 MG PO DAILY, TAB Fluticasone Propionate (Fluticasone Propionate) 16 Gm [place].susp 2 SPRAYS NS DAILY PRN for CONGESTION, SPRAY Furosemide (Furosemide) 40 Mg Tablet 40 MG PO DAILY, TAB Insulin Degludec (Tresiba Flextouch U-100) 100 Unit/1 Ml Insuln.pen 45 UNIT SQ DAILY PRN for ONLY USE IF PUMP FAILS, EA Insulin Lispro (Humalog) 100 Unit/1 Ml Cartridge 200 UNIT EVERY 72 HOURS, EA LOAD 200 UNITS IN INSULIN PUMP EVERY 72 HOURS Levothyroxine Sodium (Levothyroxine Sodium) 75 Mcg Tablet 75 MCG PO DAILY, TAB Lisinopril (Lisinopril) 40 Mg Tablet 40 MG PO DAILY, TAB Melatonin (Melatonin) 5 Mg Tablet 5 MG PO HS, TAB Montelukast Sodium (Montelukast Sodium) 10 Mg Tablet 10 MG PO HS, TAB Multivit-Min/FA/Lycopene/Lut (Centrum Silver Tablet) 1 Each Tablet 1 TAB PO DAILY, TAB [place]-3 Acid Ethyl Esters ([place]-3 Acid Ethyl Esters) 1 Gm Capsule 2 GM PO BID, CAP TAKES 2 (1GM) CAPS [place]-3/Dha/Epa/Fish Oil (Fish Oil 1,000 mg Softgel) 1,000 Mg (120 Mg-180 Mg) Capsule 1000 MG PO BID, CAP Pantoprazole Sodium (Pantoprazole Sodium) 40 Mg Tablet.dr 40 MG PO BID, TAB Potassium Chloride (K-Tab ER) 10 Meq Tablet.er 10 MEQ PO BID, TAB Pregabalin (Pregabalin) 100 Mg Capsule 100 MG PO BID, CAP Tiotropium [place] (Spiriva Respimat 2.5MCG/ACTUATION) 2.5 Mcg/Actuation Mist.inhal 2 PUFF IH DAILY, EA Discontinued Medications: Atorvastatin Calcium (Atorvastatin Calcium) 80 Mg Tablet 80 MG PO HS, TAB Azithromycin (Azithromycin) 250 Mg Tablet 250 MG PO DAILY Clopidogrel Bisulfate (Clopidogrel) 75 Mg Tablet 75 MG PO DAILY, TAB Patient Instructions Goal/Follow Up Appt: Follow up with Dr. Lancaster within a week of discharge. Patient Instructions: Hold your azithromycin and atorvastatin while taking the antibiotics (cipro and metronidazole), you can restart after.. Stop taking clopidogrel due to your bleeding episode, however you can continue your aspirin. Activity & Diet Discharge Diet: ADA Diet Activity as Tolerated: Yes CRYSTAL SANTIAGO MD Jan 03, 2022 10:20
[2022-01-03 11:05] VITALS: BP 171/80
--- NOTE | 2022-01-03 11:59 | Discharge Summary ---
Discharge Summary Hospital Course Problems/Diagnosis: (1) GI bleed Status: Acute Assessment & Plan: Suspect possibly due to colitis, Surgery consulted, appreciate recommendations. Holding aspirin and clopidogrel. 01/02/22 improving and hemoglobin stable, but given gross blood as recent as las t evening, will advance diet carefully and monitor through today. 01/03/22 no further episodes, had scope in last couple of years, likely due to colitis, held clopidogrel on d/c and remained on aspirin only. (2) Colitis Status: Acute Assessment & Plan: Cipro/flagyl, IVF. 01/02 decrease IVF rate to 100 cc/hr, tolerating liquids well. 01/03 discharged to complete oral course of cipro/flagyl. (3) IDDM (insulin dependent diabetes mellitus) Status: Chronic Assessment & Plan: Diabetic diet, sliding scale insulin. (4) CAD (coronary artery disease) Status: Chronic Qualifiers: Qualified Codes: I25.10 - Atherosclerotic heart disease of [place] coronary artery without angina pectoris (5) Hyperlipidemia Status: Chronic (6) HTN (hypertension) Status: Chronic Qualifiers: Qualified Codes: I10 - Essential (primary) hypertension (7) COPD (chronic obstructive pulmonary disease) Status: Chronic Assessment & Plan: Supplemental oxygen dependent. (8) Obstructive sleep apnea on CPAP Status: Chronic (9) Morbid obesity Status: Chronic (10) Fibromyalgia Status: Chronic Hospital Course Date of Admission: Jan 01, 2022 at 04:55 Admission Diagnosis : Family Physician/Provider: [place] Date of Discharge: 01/03/22 Discharge Diagnosis: See problem list Hospital Course: See problem list Labs and Pending Lab Test: Laboratory Tests 01/02/22 15:29: Glucometer 125H 01/02/22 20:54: Glucometer 151H 01/03/22 05:26: White Blood Count 5.9, Red Blood Count 3.59L, Hemoglobin 10.6L, Hematocrit 32L, Mean Corpuscular Volume 88, Mean Corpuscular Hemoglobin 30, Mean Corpuscular Hemoglobin Concent 34, Red Cell Distribution Width 13.0, Platelet Count 166, Mean Platelet Volume 10.5, Sodium Level 141, Potassium Level 3.4L, Chloride Level 109H, Carbon Dioxide Level 24, Anion Gap 8, Blood Urea Nitrogen 13, Creatinine 0.83, Estimat Glomerular Filtration Rate 76, BUN/Creatinine Ratio 16, Glucose Level 126H, Calcium Level 8.9 01/03/22 05:44: Glucometer 127H Microbiology 01/01/22 C. difficile GDH Antigen & Toxins - Final, Resulted 01/01/22 Stool Culture - Preliminary, Resulted 01/01/22 Urine Culture - Final, Complete Mixed Bacterial [place] Home Meds Active Cipro (Ciprofloxacin HCl) 500 Mg Tablet 500 Mg PO BID 8 Days Metronidazole 500 Mg Tablet 500 Mg PO Q8HR 8 Days Reported Spiriva Respimat 2.5MCG/ACTUATION (Tiotropium [place]) 2.5 Mcg/Actuation Mi st.inhal 2 Puff IH DAILY Xigduo Xr 10 mg-1,000 mg Tab (Dapagliflozin/Metformin HCl) 10 Mg-1,000 Mg Tab.bp.24h 1 Ea PO DAILY Fish Oil 1,000 mg Softgel ([place]-3/Dha/Epa/Fish Oil) 1,000 Mg (120 Mg-180 Mg) Capsule 1,000 Mg PO BID Fenofibrate (Fenofibrate Nanocrystallized) 145 Mg Tablet 145 Mg PO DAILY Amitriptyline HCl 25 Mg Tablet 25 Mg PO HS Ezetimibe 10 Mg Tablet 10 Mg PO DAILY Restasis (Cyclosporine) 0.05 % Droperette 1 Drop OU BID Duloxetine HCl 60 Mg Capsule.dr 60 Mg PO HS Symbicort 160-4.5 Mcg Inhaler (Budesonide/Formoterol Fumarate) 160 Mcg-4.5 Mcg/Actuation Hfa.aer.ad 2 Puff IH BID Duloxetine HCl 30 Mg Capsule.dr 30 Mg PO DAILY Melatonin 5 Mg Tablet 5 Mg PO HS Trulicity (Dulaglutide) 4.5 Mg/0.5 Ml Pen.injctr 4.5 Mg INJ WED Tresiba Flextouch U-100 (Insulin Degludec) 100 Unit/1 Ml Insuln.pen 45 Unit SQ DAILY PRN Pregabalin 100 Mg Capsule 100 Mg PO BID Pantoprazole Sodium 40 Mg Tablet.dr 40 Mg PO BID Lisinopril 40 Mg Tablet 40 Mg PO DAILY Humalog (Insulin Lispro) 100 Unit/1 Ml Cartridge 200 Unit EVERY 72 HOURS LOAD 200 UNITS IN INSULIN PUMP EVERY 72 HOURS Aspirin 81 Mg Tab.chew 81 Mg PO DAILY Levothyroxine Sodium 75 Mcg Tablet 75 Mcg PO DAILY K-Tab ER (Potassium Chloride) 10 Meq Tablet.er 10 Meq PO BID [place]-3 Acid Ethyl Esters 1 Gm Capsule 2 Gm PO BID TAKES 2 (1GM) CAPS Furosemide 40 Mg Tablet 40 Mg PO DAILY Fluticasone Propionate 16 Gm [place].susp 2 Sprays NS DAILY PRN Centrum Silver Tablet (Multivit-Min/FA/Lycopene/Lut) 1 Each Tablet 1 Tab PO DAILY Montelukast Sodium 10 Mg Tablet 10 Mg PO HS Assessment/Pt DC Instructions Follow up with primary within a week of discharge. See discharge instruction document. Discharge Diet: ADA Diet Activity as Tolerated: Yes Discharge Physical Examination Allergies: Coded Allergies: dornase lloyd (Verified Allergy, Unknown, RAPID HEART BEAT, 03/23/17) Penicillins (Verified Adverse Reaction, Mild, NAUSEA, 03/23/17) codeine (Verified Adverse Reaction, Mild, NAUSEA, PT TAKES HYDROCODONE AT HOME, 03/23/17) etomidate (Verified Adverse Reaction, Unknown, seizures, 12/25/19) General Appearance: No Apparent Distress Respiratory: Lungs Clear, Normal Breath Sounds Cardiovascular: Regular Rate, Rhythm, No Murmur Gastrointestinal: Normal Bowel Sounds, Non Tender, Soft Extremity: No Pedal Edema Skin: Normal Color, Warm/Dry Neurologic/Psychiatric: Alert, Normal Mood/Affect CRYSTAL SANTIAGO MD Jan 03, 2022 11:59
== END 2022-01-03 11:05 | disposition home or self-care (01) | DRG 392 ==
LOC: EDUNIT# 01:48 → ER 01:51 → 4TH 04:55
PROVIDERS: ADMIT Family Medicine; ATTEND Family Medicine
DX: K52.9 Noninfective gastroenteritis and colitis, unspecified (principal); E11.9 Type 2 diabetes mellitus without complications; J44.9 Chronic obstructive pulmonary disease, unspecified; I10 Essential (primary) hypertension; I25.10 Atherosclerotic heart disease of native coronary artery without angina pectoris; E78.00 Pure hypercholesterolemia, unspecified; M79.7 Fibromyalgia; G47.33 Obstructive sleep apnea (adult) (pediatric); E66.01 Morbid (severe) obesity due to excess calories; Z68.37 Body mass index [BMI] 37.0-37.9, adult; Z99.81 Dependence on supplemental oxygen; Z79.4 Long term (current) use of insulin; Z79.85 Long-term (current) use of injectable non-insulin antidiabetic drugs; Z79.02 Long term (current) use of antithrombotics/antiplatelets; Z79.82 Long term (current) use of aspirin; Z83.3 Family history of diabetes mellitus; Z82.49 Family history of ischemic heart disease and other diseases of the circulatory system
CPT/HCPCS: 36415; 74177; 80048; 80053; 80306; 80320; 81000; 82150; 82947; 83690; 83735; 85025; 85027; 85610; 85730; 87015; 87045; 87046; 87088; 87324; 87449; 87899; 93041; 94640; 94760

== ENCOUNTER 2022-10-29 12:50 | Day surgery (SDC) | payer MEDICARE, MEDICAID ==
[~2022-10-29] VITALS: Ht 170 cm; Wt 89.7 kg
[~2022-10-29 12:50] MED LIST changes: +ALBU8.5H6 IH; +ALBU8.5H6 INH; +BUDE10.2 IH; +CIPR-225 PO; +DAPA1TAB5 PO; +DULO30CA49 PO; +DULO60CA59 PO; +EZET10TA49 PO; +LEVE500T99 PO; +MAGN296S68 PO; -MAGN296S71 PO; +METR-145 PO; +OMEG100032 PO; +POTA-185 PO; -POTA10TA PO; -RT-ALBUINH INH; +TIOT4MIS2 IH
[2022-10-29] MEDS ORDERED: LIDOCAINE 1% INJ 20 ML VIAL ONE (13:09)
[2022-10-29] MEDS ORDERED: LIDOCAINE 1% INJ 20 ML VIAL INJ ONE (13:15)
[2022-10-29 13:17] VITALS: BP 157/72
--- NOTE | 2022-10-29 21:46 | OPERATIVE REPORT ---
DATE OF SERVICE: 10/29/2022 PREOPERATIVE DIAGNOSIS: Seizure/syncope. POSTOPERATIVE DIAGNOSIS: Seizure/syncope. PROCEDURE: Implantable loop recorder implantation. Implantable loop recorder implantation was carried out after having obtained an informed consent. The procedure was done to evaluate her episodes of seizure/syncope. DESCRIPTION OF PROCEDURE: [facility] The left prepectoral area was prepared and draped in the usual sterile fashion. 1% lidocaine was used for local anesthesia. Tools provided with the [employer] II device were used to make a subcutaneous pocket anterior to the fourth intercostal space into which the device was placed and the wound edges were closed using Dermabond and Steri-Strips. The serial number of the device is [id number]. She tolerated the procedure well. Job ID: [id number] DocumentID: [id number] Dictated Date: 10/29/2022 14:11:45 Order Builder Loader Date: 10/29/2022 21:44:00 Dictated By: DIONTE ALMONTE MD; YARELI; FACP; FACC;
== END 2022-10-29 14:25 ==
LOC: CATH 12:50
PROVIDERS: ATTEND Internal Medicine Cardiovascular Disease
DX: R55 Syncope and collapse (principal); J96.10 Chronic respiratory failure, unspecified whether with hypoxia or hypercapnia; R00.2 Palpitations; I25.10 Atherosclerotic heart disease of native coronary artery without angina pectoris; I50.22 Chronic systolic (congestive) heart failure; I11.0 Hypertensive heart disease with heart failure; I65.23 Occlusion and stenosis of bilateral carotid arteries; E66.9 Obesity, unspecified; E11.40 Type 2 diabetes mellitus with diabetic neuropathy, unspecified; J44.9 Chronic obstructive pulmonary disease, unspecified; R25.2 Cramp and spasm; M21.372 Foot drop, left foot; R94.6 Abnormal results of thyroid function studies; E78.2 Mixed hyperlipidemia; G47.33 Obstructive sleep apnea (adult) (pediatric); I49.3 Ventricular premature depolarization; I49.1 Atrial premature depolarization; Z68.31 Body mass index [BMI] 31.0-31.9, adult; Z87.891 Personal history of nicotine dependence; Z79.899 Other long term (current) drug therapy
CPT/HCPCS: 33285; C1764